=== PATIENT | male | born 1960 | race Caucasian/White ===

== ENCOUNTER 2022-06-24 14:03 | Emergency (ER) | payer BC, SELFPAY ==
[2022-06-24] VITALS (7 sets, daily range): BP systolic 93–126; BP diastolic 62–83; PULSE 73–84; RESP 13–14; TEMP 36.8; O2SAT 92–97; BMI 21.0
[2022-06-24] MEDS: ONDANSETRON 2 MG/ML inj 4 MG IVP ×2 (15:09→21:45)
[2022-06-24] MEDS: 0.9 % SODIUM CHLORIDE 1000 ml 1,000 ML IV (15:09)
[2022-06-24 15:11] LABS: Lactate* 3.1 mmol/L (0.5-1.9)
[2022-06-24 15:17] LABS: Basophils Absolute Auto 0.02 K/uL (0.00-0.30); Basophils Percent Auto 0.2 % (0.0-3.0); Eosinophils Absolute Auto 0.01 K/uL (0.00-0.50); Eosinophils Percent Auto 0.1 % (0.0-7.0); Hematocrit 42.9 % (37.0-53.0); Immature Granulocytes Abs Auto 0.06 K/uL (0.00-0.30); Lymphocytes Percent Auto 9.1 % (20-44); Mean Corpuscular HGB Conc 35 gm/dL (32-36); Mean Corpuscular Hemoglobin 36 pg (26-34); Mean Corpuscular Volume 102 fL (80-100); Monocytes Percent Auto 9.8 % (0.0-11.0); Neutrophils Percent Auto 80.1 % (42.0-72.0); Platelet Count* 137 K/uL (140-440); RDW Coefficient of Variation % 14.6 % (11.5-15.5); Red Blood Count 4.19 m/uL (4.30-5.90); White Blood Count* 8.47 K/uL (4.50-11.00)
[2022-06-24 15:18] LABS: Slide Review Reflex No
[2022-06-24 15:28] LABS: Chloride* 101 mmol/L (96-114)
[2022-06-24 15:29] LABS: Albumin* 3.2 g/dL (3.3-5.0); Sodium* 134 mmol/L (135-149)
[2022-06-24 15:30] LABS: Potassium* 4.4 mmol/L (3.6-5.1)
[2022-06-24 15:31] LABS: Creatinine* 0.4 mg/dL (0.5-1.5); Est. Creatinine Clearance* 68.68; Estimated Glomerular Filt Rate 124 ml/min
[2022-06-24 15:32] LABS: Alanine Aminotransferase* 37 U/L (4-50); Alkaline Phosphatase* 163 U/L (40-150); Aspartate Amino Transferase* 71 U/L (12-35); Bilirubin Direct* 4.2 mg/dL (0.0-0.5); Bilirubin Total* 7.8 mg/dL (0.1-1.5); Blood Urea Nitrogen* 25 mg/dL (7-30); Carbon Dioxide* 25 mmol/L (20-32); Glucose* 311 mg/dL (60-115); Lipase* 549 U/L (23-300); Total Protein* 7.9 g/dL (6.0-8.3)
[2022-06-24 15:33] LABS: Acetaminophen* < 10.0 ug/mL (10.0-30.0); Calcium* 8.9 mg/dL (8.4-10.6); Ethanol* < 0.01 % (0.01-0.03); Salicylate* < 1.0 mg/dL (1.0-10)
[2022-06-24 15:35] LABS: C Reactive Protein* 1.8 mg/dL (0.5-1.0)
--- NOTE | 2022-06-24 15:38 | CRLHL7_ITS ---
For Patients: As a result of the Century Cures Act, medical imaging exams and procedure reports are released immediately into your electronic medical record. You may view this report before your referring provider. If you have questions, please contact your health care provider. INDICATION: Abdominal pain. TECHNIQUE: CT abdomen and pelvis without intravenous contrast. Coronal and sagittal formats. COMPARISON: None available. FINDINGS: The imaged lower chest demonstrates heavy coronary artery calcifications. Cirrhotic liver morphology. Cholelithiasis. No biliary dilatation identified. The pancreas and adrenals are unremarkable. The spleen is normal in size with multiple enlarged, tortuous perisplenic vascular structures, likely a splenorenal shunt. Symmetric renal size. No urolithiasis or hydronephrosis bilaterally. Unremarkable urinary bladder. Colonic diverticulosis without acute inflammatory changes. Postsurgical changes of partial small bowel resection with enteric anastomosis in the right lower abdomen. Moderate volume ascites. No pneumoperitoneum or organized collection. Normal caliber abdominal aorta with heavy atherosclerotic calcification. No suspicious osseous lesion. IMPRESSION: 1. Cirrhosis with sequela of portal hypertension, including large splenorenal shunt. 2. Moderate volume ascites. 3. Advanced atherosclerotic disease. Dictated by Sanya Kerns MD @ 06/24/2022 4:34:26 PM Please note that all CT scans at this facility use dose modulation, iterative reconstruction, and/or weight-based dosing when appropriate to reduce radiation dose to as low as reasonably achievable. Dictated by: Sanya Kerns MD @ 06/24/2022 16:34:31 (Electronically Signed)
[2022-06-24 15:47] LABS: Troponin I* < 0.01 ng/mL (0.01-0.04)
[2022-06-24 15:59] LABS: Erythrocyte SedimentationRate* 24 mm/hr (2-15)
[2022-06-24 16:04] LABS: PCR FLU A Negative PCR FLU A (Negative); PCR FLU B Negative PCR FLU B (Negative)
--- NOTE | 2022-06-24 16:36 | ED.GENADULT ---
HPI - General Adult General Chief complaint: Nausea/Vomiting Stated complaint: Abdominal Pain/Vomiting Time Seen by Provider: 06/24/22 14:09 Source: patient and family Mode of arrival: ambulatory Limitations: no limitations History of Present Illness HPI narrative: 61-year-old male coming in today complaining of vomiting for the last 48 hours. He has not been able to take any of his medications. He was having significant diffuse abdominal pain for the last 2 days but the pain has now resolved however the nausea and vomiting continue. He denies any hemoptysis or hematemesis. Patient has a very complex medical history significant for diabetes type 2, hypertension, chronic kidney disease, liver cirrhosis with portal venous hypertension and a splenorenal shunt, gastric and esophageal varices partial colectomy, right knee arthroplasty, alcohol use disorder. Denies fevers or chills. No chest pain or shortness of breath. Has a history of jaundice, he cannot tell me nor can his , if he is more jaundiced than normal. No headache, neurologic deficits or blurry vision. Related Data Home Medications Medication Instructions Recorded Confirmed atorvastatin 10 mg tablet mg 06/24/22 ferrous sulfate 324 mg (65 mg mg PO 06/24/22 iron) tablet,delayed release folic acid 1 mg tablet 06/24/22 furosemide 20 mg tablet mg 06/24/22 glipizide 2.5 mg tablet, extended mg PO BID 06/24/22 release 24 hr glipizide 5 mg tablet 7.5 mg PO BID 06/24/22 06/24/22 lactulose 10 gram/15 mL oral 0.75 ml PO DAILY 06/24/22 06/24/22 solution magnesium 500 mg tablet 15 mg PO DAILY 06/24/22 06/24/22 nadolol 20 mg tablet mg 06/24/22 omeprazole 40 mg capsule,delayed mg 06/24/22 release ropinirole 0.25 mg tablet 1 mg PO DAILY 06/24/22 06/24/22 spironolactone 25 mg tablet mg 06/24/22 Allergies Allergy/AdvReac Type Severity Reaction Status Date / Time duloxetine Allergy Intermediate Unknown Verified 06/22/22 12:25 [facility] Medical History (Updated 06/24/22 @ 20:39 by Yuly Davies MD) Alcoholic cirrhosis of liver with ascites Anemia Gout Osteoarthritis of knee Restless legs syndrome Surgical History (Updated 06/22/22 @ 12:22 by Donita Villaseñor) History of partial surgical removal of colon (2002) History of tonsillectomy (1965) History of total knee replacement (2015) Family History (Updated 06/22/22 @ 12:25 by Donita Villaseñor) Father Diabetes Myocardial infarction, Onset Age: 81 Social History (Updated 06/22/22 @ 12:24 by Donita Villaseñor) Narrative: Does not have regular exercise regimen , computer cat, 2 kids Non-smoker- ex smoker quit 2005, hx 30 pack years Social drinker- 10/week Smoking Status: Former smoker Do you use any of these nicotine containing products: None Second hand tobacco smoke exposure: No How often do you have a drink containing alcohol: monthly or less AUDIT-C Alcohol total score: 1 Non-prescribed substance use: denies use Exam Narrative: Exam Narrative: Well-nourished well-developed patient in no acute distress. He is groggy, but cooperative. Moves very slowly. Answers questions appropriately. Speech is slightly slurred. HEENT: Normocephalic atraumatic. Pupils are equally round reactive to light. Extraocular muscles are intact. Conjunctivae are moist, he does have icterus. Moist mucous membranes. Cardiovascular: Heart is regular rate and rhythm S1 and S2 are present without loud 4/6 systolic murmur. Lungs: Clear to auscultation bilaterally no wheezes rhonchi or rales are appreciated. Patient takes deep breaths without any discomfort. Abdomen: Soft and nontender, is distended with normal bowel sounds. No guarding or rebound tenderness. Extremities: Bilateral lower extremities are without edema. Skin: Well perfused without any obvious rashes. Patient is jaundiced Const: Vital Signs, click to edit/add: Vital Signs - 24 hr 06/24/22 14:19 06/24/22 15:00 06/24/22 16:30 Temperature 98.2 F Pulse Rate [Pulse Oximeter] 79 73 74 Respiratory Rate 14 13 14 Blood Pressure [Ri ght Upper Arm] 126/75 93/73 100/62 Pulse Oximetry 95 93 92 Oxygen Delivery Me thod Room Air Room Air Room Air Course Course Hospital Course: IV was established and and fluids started along with Zofran. Labs were done which included a CBC that was unremarkable. He does have thrombocytopenia with a platelet count of 137. INR is elevated at 1.32. Slight hyponatremia 134, normal potassium. Normal renal function. Glucose elevated at 311. Lactate elevated at 3.1. Total bilirubin elevated at 7.8, direct bilirubin elevated at 4.2. AST elevated at 71, normal ALT. Alkaline phosphatase slightly elevated at 163. Ammonia level markedly elevated at 213. Normal troponin. CRP slightly up at 1.8. Lipase elevated at 549. Salicylate, acetaminophen, alcohol negative. Patient unable to give urine sample at this time, 2 L of saline was started. Abdominal CT was done showing cirrhosis and moderate abdominal ascites. All showing cholelithiasis. Therefore patient proceeded to ultrasound. Ultrasound showed cirrhosis and a portal vein thrombus. Given that the patient did not have any vomiting while he was here we did go ahead and give him an oral dose of lactulose. He did have a bowel movement. He remained hemodynamically stable. I did speak to [facility] who recommended the patient be transferred for admission and further management. Vital Signs Vital signs: Initial Vital Signs Temperature 98.2 F 06/24/22 14:19 Temperature Source Temporal Artery Scan 06/24/22 14:19 Pulse Rate 79 06/24/22 14:19 Pulse Rhythm 06/24/22 14:19 Respiratory Rate 14 06/24/22 14:19 Blood Pressure 126/75 06/24/22 14:19 Blood Pressure Mean 92 06/24/22 14:19 Pulse Oximetry 95 06/24/22 14:19 Oxygen Delivery Method 06/24/22 14:19 Vital Signs Temperature 98.2 F 06/24/22 14:19 Pulse Rate 79 06/24/22 14:19 Respiratory Rate 14 06/24/22 14:19 Blood Pressure 126/75 06/24/22 14:19 Pulse Oximetry 95 06/24/22 14:19 Oxygen Delivery Method 06/24/22 14:19 Temperature 98.2 F 06/24/22 14:19 Pulse Rate 74 06/24/22 16:30 Respiratory Rate 14 06/24/22 16:30 Blood Pressure 100/62 06/24/22 16:30 Pulse Oximetry 92 06/24/22 16:30 Oxygen Delivery Method 06/24/22 16:30 Medical Decision Making MDM Narrative Medical decision making narrative: 61-year-old male with cirrhosis, portal vein thrombus, history of esophageal varices and GI bleed, a P[place]ock encephalopathy. Patient will be transferred to [place] for further management. Medical Records Medical records reviewed: Yes I reviewed the patient's medical records Lab Data Lab results reviewed: Yes I reviewed the patient's lab results Labs: Lab Results 06/24/22 06/24/22 06/24/22 Range/Units 15:00 15:00 15:00 WBC 8.47 (4.50-11.00) K/uL RBC 4.19 L (4.30-5.90) m/uL Hgb 15.0 (13.5-17.5) gm/dL Hct 42.9 (37.0-53.0) % MCV 102 H (80-100) fL MCH 36 H (26-34) pg MCHC 35 (32-36) gm/dL RDW Coeff of Ness 14.6 (11.5-15.5) % Plt Count 137 L (140-440) K/uL Neut % (Auto) 80.1 H (42.0-72.0) % Lymph % (Auto) 9.1 L (20-44) % Bowie % (Auto) 9.8 (0.0-11.0) % Eos % (Auto) 0.1 (0.0-7.0) % Baso % (Auto) 0.2 (0.0-3.0) % Neut # (Auto) 6.80 (1.7-7.0) K/uL Lymph # (Auto) 0.80 L (0.90-2.90) K/uL Bowie # (Auto) 0.80 (0.00-0.90) K/UL Eos # (Auto) 0.01 (0.00-0.50) K/uL Baso # (Auto) 0.02 (0.00-0.30) K/uL Abs Immat Gran (auto) 0.06 (0.00-0.30) K/uL ESR 24 H (2-15) mm/hr INR (0.91-1.10) Sodium 134 L (135-149) mmol/L Potassium 4.4 (3.6-5.1) mmol/L Chloride 101 (96-114) mmol/L Carbon Dioxide 25 (20-32) mmol/L BUN 25 (7-30) mg/dL Creatinine 0.4 L (0.5-1.5) mg/dL Estimated Creat Clear 68.68 Estimated GFR 124 ml/min Glucose 311 H (60-115) mg/dL Lactate (0.5-1.9) mmol/L Calcium 8.9 (8.4-10.6) mg/dL Magnesium (1.5-2.6) mg/dL Total Bilirubin 7.8 H (0.1-1.5) mg/dL Direct Bilirubin 4.2 H (0.0-0.5) mg/dL AST 71 H (12-35) U/L ALT 37 (4-50) U/L Alkaline Phosphatase 163 H (40-150) U/L Ammonia (13.1-30.0) umol/L Troponin I < 0.01 L (0.01-0.04) ng/mL C-Reactive Protein 1.8 H (0.5-1.0) mg/dL Total Protein 7.9 (6.0-8.3) g/dL Albumin 3.2 L (3.3-5.0) g/dL Lipase 549 H (23-300) U/L Salicylates < 1.0 L (1.0-10) mg/dL Acetaminophen < 10.0 L (10.0-30.0) ug/mL Ethyl Alcohol < 0.01 L (0.01-0.03) % SARS-CoV-2 (PCR) (Negative) Influenza Type A (PCR) (Negative) Influenza Type B (PCR) (Negative) 06/24/22 06/24/22 06/24/22 Range/Units 15:00 15:00 15:00 WBC (4.50-11.00) K/uL RBC (4.30-5.90) m/uL Hgb (13.5-17.5) gm/dL Hct (37.0-53.0) % MCV (80-100) fL MCH (26-34) pg MCHC (32-36) gm/dL RDW Coeff of Ness (11.5-15.5) % Plt Count (140-440) K/uL Neut % (Auto) (42.0-72.0) % Lymph % (Auto) (20-44) % Bowie % (Auto) (0.0-11.0) % Eos % (Auto) (0.0-7.0) % Baso % (Auto) (0.0-3.0) % Neut # (Auto) (1.7-7.0) K/uL Lymph # (Auto) (0.90-2.90) K/uL Bowie # (Auto) (0.00-0.90) K/UL Eos # (Auto) (0.00-0.50) K/uL Baso # (Auto) (0.00-0.30) K/uL Abs Immat Gran (auto) (0.00-0.30) K/uL ESR (2-15) mm/hr INR (0.91-1.10) Sodium (135-149) mmol/L Potassium (3.6-5.1) mmol/L Chloride (96-114) mmol/L Carbon Dioxide (20-32) mmol/L BUN (7-30) mg/dL Creatinine (0.5-1.5) mg/dL Estimated Creat Clear Estimated GFR ml/min Glucose (60-115) mg/dL Lactate 3.1 H (0.5-1.9) mmol/L Calcium (8.4-10.6) mg/dL Magnesium (1.5-2.6) mg/dL Total Bilirubin (0.1-1.5) mg/dL Direct Bilirubin (0.0-0.5) mg/dL AST (12-35) U/L ALT (4-50) U/L Alkaline Phosphatase (40-150) U/L Ammonia 213.0 H (13.1-30.0) umol/L Troponin I (0.01-0.04) ng/mL C-Reactive Protein (0.5-1.0) mg/dL Total Protein (6.0-8.3) g/dL Albumin (3.3-5.0) g/dL Lipase (23-300) U/L Salicylates (1.0-10) mg/dL Acetaminophen (10.0-30.0) ug/mL Ethyl Alcohol (0.01-0.03) % SARS-CoV-2 (PCR) Negative SARS-CoV-2 (Negative) Influenza Type A (PCR) Negative PCR FLU A (Negative) Influenza Type B (PCR) Negative PCR FLU B (Negative) 06/24/22 06/24/22 Range/Units 15:00 17:32 WBC (4.50-11.00) K/uL RBC (4.30-5.90) m/uL Hgb (13.5-17.5) gm/dL Hct (37.0-53.0) % MCV (80-100) fL MCH (26-34) pg MCHC (32-36) gm/dL RDW Coeff of Ness (11.5-15.5) % Plt Count (140-440) K/uL Neut % (Auto) (42.0-72.0) % Lymph % (Auto) (20-44) % Bowie % (Auto) (0.0-11.0) % Eos % (Auto) (0.0-7.0) % Baso % (Auto) (0.0-3.0) % Neut # (Auto) (1.7-7.0) K/uL Lymph # (Auto) (0.90-2.90) K/uL Bowie # (Auto) (0.00-0.90) K/UL Eos # (Auto) (0.00-0.50) K/uL Baso # (Auto) (0.00-0.30) K/uL Abs Immat Gran (auto) (0.00-0.30) K/uL ESR (2-15) mm/hr INR 1.32 H (0.91-1.10) Sodium (135-149) mmol/L Potassium (3.6-5.1) mmol/L Chloride (96-114) mmol/L Carbon Dioxide (20-32) mmol/L BUN (7-30) mg/dL Creatinine (0.5-1.5) mg/dL Estimated Creat Clear Estimated GFR ml/min Glucose (60-115) mg/dL Lactate (0.5-1.9) mmol/L Calcium (8.4-10.6) mg/dL Magnesium 2.0 (1.5-2.6) mg/dL Total Bilirubin (0.1-1.5) mg/dL Direct Bilirubin (0.0-0.5) mg/dL AST (12-35) U/L ALT (4-50) U/L Alkaline Phosphatase (40-150) U/L Ammonia (13.1-30.0) umol/L Troponin I (0.01-0.04) ng/mL C-Reactive Protein (0.5-1.0) mg/dL Total Protein (6.0-8.3) g/dL Albumin (3.3-5.0) g/dL Lipase (23-300) U/L Salicylates (1.0-10) mg/dL Acetaminophen (10.0-30.0) ug/mL Ethyl Alcohol (0.01-0.03) % SARS-CoV-2 (PCR) (Negative) Influenza Type A (PCR) (Negative) Influenza Type B (PCR) (Negative) Imaging Data CT scan - abdomen: Attestation: I have reviewed the pertinent imaging results. Radiologist's impression: FINDINGS: The imaged lower chest demonstrates heavy coronary artery calcifications. Cirrhotic liver morphology. Cholelithiasis. No biliary dilatation identified. The pancreas and adrenals are unremarkable. The spleen is normal in size with multiple enlarged, tortuous perisplenic vascular structures, likely a splenorenal shunt. Symmetric renal size. No urolithiasis or hydronephrosis bilaterally. Unremarkable urinary bladder. Colonic diverticulosis without acute inflammatory changes. Postsurgical changes of partial small bowel resection with enteric anastomosis in the right lower abdomen. Moderate volume ascites. No pneumoperitoneum or organized collection. Normal caliber abdominal aorta with heavy atherosclerotic calcification. No suspicious osseous lesion. IMPRESSION: 1. Cirrhosis with sequela of portal hypertension, including large splenorenal shunt. 2. Moderate volume ascites. 3. Advanced atherosclerotic disease. US - abdomen: Attestation: I have reviewed the pertinent imaging results. Radiologist's impression: FINDINGS: The partially visualized pancreas appears unremarkable. The proximal aorta measures 2.3 cm. Cirrhotic liver morphology. No definite focal liver lesion. No blood flow is observed in the main portal vein. The gallbladder is contracted. Cholelithiasis. The common bile duct measures 0.4 cm. The right kidney measures 12.0 cm. No hydronephrosis. No focal renal lesion. Moderate to large volume ascites. Impression : 1. Cirrhotic liver morphology with moderate to large ascites. 2. Absence of blood flow in the main portal vein concerning for thrombus. ECG Data Attestation: I personally reviewed and interpreted this ECG as follows: (Normal sinus rhythm with a right bundle branch block, pulse 77) Discharge Plan Discharge Clinical Impression: Portal vein thrombosis, Cirrhosis, Encephalopathy, hepatic [facility] Condition: Stable Prescriptions: No Action atorvastatin 10 mg tablet folic acid 1 mg tablet furosemide 20 mg tablet Rx Instructions: taking 10 mg ferrous sulfate 324 mg (65 mg iron) tablet,delayed release (DR/EC) PO glipizide 2.5 mg tablet extended release 24hr PO BID glipizide 5 mg tablet 7.5 mg PO BID omeprazole 40 mg capsule,delayed release(DR/EC) nadolol 20 mg tablet ropinirole 0.25 mg tablet 1 mg PO DAILY spironolactone 25 mg tablet lactulose 10 gram/15 mL solution 0.75 ml PO DAILY magnesium 500 mg tablet 15 mg PO DAILY Stand Alone Forms: [place] [employer] Info Instructions
[2022-06-24 17:57] LABS: INR 1.32 (0.91-1.10); Prothrombin Time 16.9 Seconds
[2022-06-24] MEDS: 0.9 % SODIUM CHLORIDE 1000 ml 1,000 ML 500 ML IV (18:14)
[2022-06-24] MEDS: LACTULOSE 20 GM/30 ML PO (18:27)
[2022-06-24 19:32] LABS: SARS PCR* Negative SARS-CoV-2 (Negative)
== END 2022-06-24 22:27 | disposition short-term general hospital (02) ==
PROVIDERS: Emergency Provider Family Medicine
DX: I81 Portal vein thrombosis (principal); K74.60 Unspecified cirrhosis of liver
CPT/HCPCS: 36415; 74176; 76705; 80048; 80076; 80143; 80179; 80306; 81001; 82077; 82140; 83605; 83690; 83735; 84484; 85025; 85610; 85651; 86140; 87086; 87502; 87635; 93005; 96374; 99285; J2405; J7030

== ENCOUNTER 2022-06-24 21:52 | Outpatient (CLI) | payer BC, SELFPAY | END 2022-06-24 21:53 | disposition home or self-care (01) | LOC: AMB 07-09 13:13 | PROVIDERS: Visit Provider Family Medicine | DX: K74.60 Unspecified cirrhosis of liver (principal); R18.8 Other ascites | CPT/HCPCS: A0425; A0428 ==

== ENCOUNTER 2022-08-15 13:00 | Outpatient (RCR) | payer BC, SELFPAY | END 2022-11-28 11:41 | disposition home or self-care (01) | PROVIDERS: PCP Internal Medicine; Visit Provider Internal Medicine | DX: M25.561 Pain in right knee (principal); Z51.89 Encounter for other specified aftercare | CPT/HCPCS: 97110; 97112; 97162 ==

== ENCOUNTER 2023-04-22 09:19 | Emergency (ER) | payer BC, SELFPAY ==
[2023-04-22] VITALS (8 sets, daily range): BP systolic 92–111; BP diastolic 66–71; PULSE 67–84; RESP 12–18; TEMP 36.6; O2SAT 98–100
--- NOTE | 2023-04-22 09:44 | CRLHL7_ITS ---
For Patients: As a result of the Century Cures Act, medical imaging exams and procedure reports are released immediately into your electronic medical record. You may view this report before your referring provider. If you have questions, please contact your health care provider. INDICATION: Altered mental status TECHNIQUE: CT head without contrast. COMPARISON: None FINDINGS: No acute intracranial hemorrhage, mass effect or midline shift is identified. The ventricular system is midline and symmetric. No significant atrophy or chronic small vessel ischemic disease changes are present. No skull fracture is seen. The paranasal sinuses and mastoid air cells are normally aerated. No orbital abnormality is seen. IMPRESSION: Unremarkable noncontrast head CT. Please note that all CT scans at this facility use dose modulation, iterative reconstruction, and/or weight-based dosing when appropriate to reduce radiation dose to as low as reasonably achievable. Dictated by Sebastien Hui MD @ 04/22/2023 10:41:55 AM (Electronically Signed)
[2023-04-22 10:10] LABS: Chloride* 104 mmol/L (96-114)
[2023-04-22 10:11] LABS: Potassium* 4.8 mmol/L (3.6-5.1); Sodium* 134 mmol/L (135-149)
[2023-04-22 10:13] LABS: Creatinine* 0.6 mg/dL (0.5-1.5); Estimated Glomerular Filt Rate 109 ml/min
[2023-04-22 10:14] LABS: Alanine Aminotransferase* 25 U/L (4-50); Alkaline Phosphatase* 206 U/L (40-150); Aspartate Amino Transferase* 69 U/L (12-35); Blood Urea Nitrogen* 15 mg/dL (7-30); Calcium* 8.8 mg/dL (8.4-10.6); Carbon Dioxide* 25 mmol/L (20-32); Glucose* 157 mg/dL (60-115); Total Protein* 8.3 g/dL (6.0-8.3)
[2023-04-22 10:15] LABS: Troponin, Point-of-Care* 0.11 ng/ml (0.01-0.04)
[2023-04-22 10:17] LABS: C Reactive Protein* 1.9 mg/dL (0.5-1.0)
[2023-04-22 10:38] LABS: Basophils Percent Auto 0.7 % (0.0-3.0); Eosinophils Percent Auto 2.1 % (0.0-7.0); Hematocrit 37.5 % (37.0-53.0); Hemoglobin* 12.8 gm/dL (13.5-17.5); Immature Granulocytes Pct Auto 0.2 %; Lymphocytes Percent Auto 18.5 % (20-44); Mean Corpuscular HGB Conc 34 gm/dL (32-36); Mean Corpuscular Hemoglobin 33 pg (26-34); Mean Corpuscular Volume 96 fL (80-100); Neutrophils Percent Auto 65.5 % (42.0-72.0); Platelet Count* 103 K/uL (140-440); RDW Coefficient of Variation % 15.7 % (11.5-15.5); Red Blood Count 3.92 m/uL (4.30-5.90); White Blood Count* 4.22 K/uL (4.50-11.00)
[2023-04-22 10:45] LABS: Slide Review Reflex No
[2023-04-22 10:51] LABS: Troponin I* 0.02 ng/mL (0.01-0.04)
--- NOTE | 2023-04-22 11:41 | ED_ITS ---
HPI - General Adult General Time Seen by Provider: 11:41 Date Seen: 04/22/23 Chief complaint: Altered Mental Status Stated complaint: Altered Mental State Time Seen by Provider: 04/22/23 09:44 Source: patient, family, RN notes reviewed and old records reviewed Mode of arrival: EMS Limitations: altered mental status History of Present Illness HPI narrative: Killian is a 62-year-old male with history of liver failure, GI hemorrhage, type 2 diabetes who is brought to the emergency room by EMS for evaluation regarding altered mentation. EMS notes that patient had not been taking his lactulose. reports that she found him this morning unresponsive on the couch. She notes that he had taken off his underwear and had urinated on the floor. She notes similar confusion altered mentation in the past when he has not been able to take his lactulose but she has never seen him quite this unresponsive. As far she knows there has been no recent fever or fall. She does note that on April 19 he did have some vomiting but no diarrhea. She states that he really has not had very good bowel movements lately. She thinks that this is ?the toxins getting into his brain?. She did attempt to get a dose of lactulose in today but was unsuccessful. Kevin's after arrival tells me that Killian was evaluated for potential place on the liver transplant list in early March. She states the underwent 24 appointments and were told that at this point he would not survive the surgery. Thus they stated that they would re-evaluate in 6 months time. Patient has been trying to take extra put 18 and trying to gain weight. Upon further discussion Killian's states that he has been gradually more confused over the last few days and she states that she does not think he was talking to her last night. I do ask Killian to open his eyes and he does. I do ask him if he is in pain any smiles. He has been verbal with the nurses stating yes or no. Nurses report they are seeing him move all of his extremities. Looking back at past notes,Patient has a very complex medical history significant for diabetes type 2, hypertension, chronic kidney disease, liver c irrhosis with portal venous hypertension and a splenorenal shunt, gastric and esophageal varices partial colectomy, right knee arthroplasty, alcohol use disorder. Related Data Home Medications Medication Instructions Recorded Confirmed atorvastatin 10 mg tablet mg 06/24/22 07/12/22 ferrous sulfate 324 mg (65 mg mg PO 06/24/22 07/12/22 iron) tablet,delayed release folic acid 1 mg tablet 06/24/22 07/12/22 furosemide 20 mg tablet mg 06/24/22 07/12/22 glipizide 2.5 mg tablet, extended mg PO BID 06/24/22 07/12/22 release 24 hr glipizide 5 mg tablet 7.5 mg PO BID 06/24/22 07/12/22 lactulose 10 gram/15 mL oral 0.75 ml PO DAILY 06/24/22 07/12/22 solution magnesium 500 mg tablet 15 mg PO DAILY 06/24/22 07/12/22 nadolol 20 mg tablet mg 06/24/22 07/12/22 omeprazole 40 mg capsule,delayed mg 06/24/22 07/12/22 release ropinirole 0.25 mg tablet 1 mg PO DAILY 06/24/22 07/12/22 spironolactone 25 mg tablet mg 06/24/22 07/12/22 Allergies Allergy/AdvReac Type Severity Reaction Status Date / Time duloxetine Allergy Intermediate Unknown Verified 07/12/22 10:24 Review of Systems Status of ROS: Reports: unobtainable due to mental status Narrative: reports no recent fever. Vomiting on April 19. No diarrhea. Otherwise no recent complaints of chest pain, shortness of breath or cough. Const: Reports: fatigue; Denies: fever or chills Endo: Reports: fatigue [facility] Medical History Anemia ?D64.9 - Anemia, unspecified (ICD-10) Alcoholic cirrhosis of liver with ascites ?K70.31 - Alcoholic cirrhosis of liver with ascites (ICD-10) Restless legs syndrome ?G25.81 - Restless legs syndrome (ICD-10) Osteoarthritis of knee ?M17.10 - Unilateral primary osteoarthritis, unspecified knee (ICD-10) Gout ?M10.9 - Gout, unspecified (ICD-10) Surgical History History of total knee replacement (2015) ?Z96.659 - Presence of unspecified artificial knee joint (ICD-10) History of tonsillectomy (1965) ?Z90.89 - Acquired absence of other organs (ICD-10) History of partial surgical removal of colon (2002) ?Z90.49 - Acquired absence of other specified parts of digestive tract (ICD- 10) Family History Father Diabetes Myocardial infarction, Onset Age: 81 Social History Narrative: Does not have regular exercise regimen , computer cat, 2 kids Non-smoker- ex smoker quit 2005, hx 30 pack years Social drinker- 10/week Smoking Status: Unknown if ever smoked Do you use any of these nicotine containing products: None Second hand tobacco smoke exposure: No How often do you have a drink containing alcohol: monthly or less AUDIT-C Alcohol total score: 1 Non-prescribed substance use: denies use Exam Narrative: Exam Narrative: Killian is lying comfortably with protected airway in room 2. Will open his eyes when I ask him to. He does not follow my commands when I ask him to move his hands or feet. However he spontaneously lift up both arms to scratches nose and he has been seen moving his legs. Pupils are approximately 3 mm and are reactive. He is very sleepy. Head is atraumatic normocephalic. Oral cavity with moist mucous membranes. Neck is supple no lymphadenopathy. No signs of trauma. Heart with regular rate and rhythm and lungs are clear bilaterally. Abdomen soft nontender. Lower extremities without edema. He is jaundiced in ap pearance. Const: Vital Signs, click to edit/add: Vital Signs - 24 hr 04/22/23 09:29 04/22/23 09:29 04/22/23 09:32 Temperature 97.8 F Pulse Rate 68 69 Pulse Rate [Pulse Oximeter] 69 Respiratory Rate 16 16 Blood Pressure 111/69 108/71 Blood Pressure [Ri ght Upper Arm] 111/69 Pulse Oximetry 99 98 98 Oxygen Delivery Me thod Room Air Room Air 04/22/23 10:42 04/22/23 11:05 04/22/23 11:31 Temperature Pulse Rate 67 71 84 Pulse Rate [Pulse Oximeter] Respiratory Rate 12 Blood Pressure 109/68 92/66 94/68 Blood Pressure [Ri ght Upper Arm] Pulse Oximetry 100 98 99 Oxygen Delivery Me thod 04/22/23 12:01 04/22/23 12:39 04/22/23 13:01 Temperature Pulse Rate 74 71 70 Pulse Rate [Pulse Oximeter] Respiratory Rate 14 18 Blood Pressure 107/69 95/67 100/66 Blood Pressure [Ri ght Upper Arm] Pulse Oximetry 99 99 98 Oxygen Delivery Me thod Documenting provider has reviewed patient's vital signs: yes Course Course Hospital Course: Patient at this time likely presenting with hepatic encephalopathy as he has been unable to take his lactulose for the past 3 days due to some nausea. Will place IV give normal saline and labs will be checked. Given the fact that this is the worse case his has seen according to her will do a head CT to ensure no other underlying issue at this time. Spontaneously moving all extremities but not to command. Will also check EKG, chest chest x-ray, laboratory values. Reevaluation(s) Reevaluation #1: Patient noted to remain sleeping. Will awake occasional purposeful movements. NG is placed after failed attempts at oral lactulose. 30 g Laine is given. Will also give 1 L of normal saline. Ammonia level elevated at 80. Backup lab troponin was within normal limits at 0.02 Vital Signs Vital signs: Initial Vital Signs Temperature 97.8 F 04/22/23 09:29 Temperature Source Temporal Artery Scan 04/22/23 09:29 Pulse Rate 68 04/22/23 09:29 Pulse Rhythm Regular 04/22/23 09:29 Respiratory Rate 16 04/22/23 09:29 Blood Pressure 111/69 04/22/23 09:29 Blood Pressure Mean 83 04/22/23 09:29 Blood Pressure Position Supine 04/22/23 09:29 Pulse Oximetry 99 04/22/23 09:29 Oxygen Delivery Method Room Air 04/22/23 09:29 Vital Signs Temperature 97.8 F 04/22/23 09:29 Pulse Rate 68 04/22/23 09:29 Respiratory Rate 16 04/22/23 09:29 Blood Pressure 111/69 04/22/23 09:29 Pulse Oximetry 99 04/22/23 09:29 Oxygen Delivery Method Room Air 04/22/23 09:29 Temperature 97.8 F 04/22/23 09:29 Pulse Rate 70 04/22/23 13:01 Respiratory Rate 18 04/22/23 13:01 Blood Pressure 100/66 06/04/23 13:01 Pulse Oximetry 98 04/22/23 13:01 Oxygen Delivery Method Room Air 04/22/23 09:32 Medical Decision Making MDM Narrative Medical decision making narrative: 1. Altered mentation-likely hepatic encephalopathy-transferring to [facility] for specialty consultation. Nurses attempted to see if patient would be able to take p.o. lactulose but given his current state unable to give.Will place NG tube and give lactulose 30 g. Bilirubin 4.0 along with CRP of 1.9. AST 69 with alk-phos of 206 a normal ALT. Ammonia level for os is a send out and is currently pending. Electrolytes reassuring at this time. Blood sugar 157. 2. Elevated troponin point of care troponin 0.11. EKG shows sinus rhythm at a rate of 70. Right bundle-branch block and largely unchanged from previous. Lab troponin I is pending and will repeat 2nd value as well. Discussion with Dr. Shetty accepting physician at [facility] he feels that patient was likely worked up cardiology wagner when he underwent potential evaluation for transplant list. Suggest lactulose or GoLYTELY. 3. Disposition-ground ambulance ALS transfer to [facility] for hospitalization. Addendum: Back up lab but troponin I was within normal limits at 0.02. Medical Records Medical records reviewed: Yes I reviewed the patient's medical records Lab Data Lab results reviewed: Yes I reviewed the patient's lab results Labs: Lab Results 04/22/23 04/22/23 04/22/23 Range/Units 09:44 09:55 10:20 WBC 4.22 L (4.50-11.00) K/uL RBC 3.92 L (4.30-5.90) m/uL Hgb 12.8 L (13.5-17.5) gm/dL Hct 37.5 (37.0-53.0) % MCV 96 (80-100) fL MCH 33 (26-34) pg MCHC 34 (32-36) gm/dL RDW Coeff of Ness 15.7 H (11.5-15.5) % Plt Count 103 L (140-440) K/uL Neut % (Auto) 65.5 (42.0-72.0) % Lymph % (Auto) 18.5 L (20-44) % [place] % (Auto) 13.0 H (0.0-11.0) % Eos % (Auto) 2.1 (0.0-7.0) % Baso % (Auto) 0.7 (0.0-3.0) % Neut # (Auto) 2.80 (1.7-7.0) K/uL Lymph # (Auto) 0.80 L (0.90-2.90) K/uL [place] # (Auto) 0.50 (0.00-0.90) K/UL Eos # (Auto) 0.10 (0.00-0.50) K/uL Baso # (Auto) 0.00 (0.00-0.30) K/uL Sodium 134 L (135-149) mmol/L Potassium 4.8 (3.6-5.1) mmol/L Chloride 104 (96-114) mmol/L Carbon Dioxide 25 (20-32) mmol/L BUN 15 (7-30) mg/dL Creatinine 0.6 (0.5-1.5) mg/dL Estimated GFR 109 ml/min Glucose 157 H (60-115) mg/dL Calcium 8.8 (8.4-10.6) mg/dL Total Bilirubin 4.0 H (0.1-1.5) mg/dL AST 69 H (12-35) U/L ALT 25 (4-50) U/L Alkaline Phosphatase 206 H (40-150) U/L Ammonia 88.0 H (13.1-30.0) umol/L Troponin I 0.02 (0.01-0.04) ng/mL C-Reactive Protein 1.9 H (0.5-1.0) mg/dL Total Protein 8.3 (6.0-8.3) g/dL Albumin 3.0 L (3.3-5.0) g/dL Ethyl Alcohol < 0.01 L (0.01-0.03) % Lab Acknowledgement POC Troponin I 0.11 H (0.01-0.04) ng/ml 04/22/23 04/22/23 Range/Units 10:26 11:46 WBC (4.50-11.00) K/uL RBC (4.30-5.90) m/uL Hgb (13.5-17.5) gm/dL Hct (37.0-53.0) % MCV (80-100) fL MCH (26-34) pg MCHC (32-36) gm/dL RDW Coeff of Ness (11.5-15.5) % Plt Count (140-440) K/uL Neut % (Auto) (42.0-72.0) % Lymph % (Auto) (20-44) % [place] % (Auto) (0.0-11.0) % Eos % (Auto) (0.0-7.0) % Baso % (Auto) (0.0-3.0) % Neut # (Auto) (1.7-7.0) K/uL Lymph # (Auto) (0.90-2.90) K/uL [place] # (Auto) (0.00-0.90) K/UL Eos # (Auto) (0.00-0.50) K/uL Baso # (Auto) (0.00-0.30) K/uL Sodium (135-149) mmol/L Potassium (3.6-5.1) mmol/L Chloride (96-114) mmol/L Carbon Dioxide (20-32) mmol/L BUN (7-30) mg/dL Creatinine (0.5-1.5) mg/dL Estimated GFR ml/min Glucose (60-115) mg/dL Calcium (8.4-10.6) mg/dL Total Bilirubin (0.1-1.5) mg/dL AST (12-35) U/L ALT (4-50) U/L Alkaline Phosphatase (40-150) U/L Ammonia (13.1-30.0) umol/L Troponin I (0.01-0.04) ng/mL C-Reactive Protein (0.5-1.0) mg/dL Total Protein (6.0-8.3) g/dL Albumin (3.3-5.0) g/dL Ethyl Alcohol (0.01-0.03) % Lab Acknowledgement Test Added Test Added POC Troponin I (0.01-0.04) ng/ml Imaging Data Chest x-ray: Attestation: I have reviewed the pertinent imaging results. My impression: by my read there is no evidence pleural effusion or infiltrate. The end of the NG tube appears to be in stomach. Radiologist's impression: carbon electrodes supervisor leads overlie the patient. NG tube, with its tip in the body of the stomach. Heart size and pulmonary vasculature are normal. There is no acute airspace disease. There is no pneumothorax. No sizable pleural effusion. Central airway is normal. No acute osseous finding. Impression: NG tube, with its tip in the body of the stomach. CT scan - head: Attestation: I have reviewed the pertinent imaging results. My impression: No acute injury or intracranial bleed noted. Radiologist's impression: o acute intracranial hemorrhage, mass effect or midline shift is identified. The ventricular system is midline and symmetric. No significant atrophy or chronic small vessel ischemic disease changes are present. No skull fracture is seen. The paranasal sinuses and mastoid air cells are normally aerated. No orbital abnormality is seen. IMPRESSION: Unremarkable noncontrast head CT. ECG Data Attestation: I personally reviewed and interpreted this ECG as follows: Prior ECG tracings: available for review Interpretation: EKG by my read shows right bundle-branch block otherwise normal sinus rhythm. No acute ST or T-wave changes based on EKG from June of 2022. Critical Care Time Critical Care Time Critical Care Time: Yes Attestation: The patient required my highest level preparedness to intervene emergently and I personally spent this critical care time directly and personally managing the patient. This critical care time included: Obtaining a history; Examining the patient; Pulse oximetry; Ordering and reviewing of studies; Arranging urgent treatment with development of a management plan; Evaluation of patients response to treatment; Frequent reassessment discussions with other providers. This critical care time was performed to assess and manage the high probability of imminent life-threatening deterioration that could result in multiorgan failure. It was exclusive of separate billable procedures and treating other patients and teaching time. Total Critical Care Time in Minutes: 60 Discharge Plan Discharge Clinical Impression: Elevated troponin, Acute hepatic encephalopathy Altered mental status Qualifiers: Altered mental status type: unspecified Qualified Code(s): R41.82 - Altered mental status, unspecified Patient Disposition: [facility] Discharge Location: [facility] Condition: Unchanged Prescriptions: No Action atorvastatin 10 mg tablet folic acid 1 mg tablet furosemide 20 mg tablet Rx Instructions: taking 10 mg ferrous sulfate 324 mg (65 mg iron) tablet,delayed release (DR/EC) PO glipizide 2.5 mg tablet extended release 24hr PO BID glipizide 5 mg tablet 7.5 mg PO BID omeprazole 40 mg capsule,delayed release(DR/EC) nadolol 20 mg tablet ropinirole 0.25 mg tablet 1 mg PO DAILY spironolactone 25 mg tablet lactulose 10 gram/15 mL solution 0.75 ml PO DAILY magnesium 500 mg tablet 15 mg PO DAILY Stand Alone Forms: [facility] Info Instructions
--- NOTE | 2023-04-22 11:54 | CRLHL7_ITS ---
For Patients: As a result of the Century Cures Act, medical imaging exams and procedure reports are released immediately into your electronic medical record. You may view this report before your referring provider. If you have questions, please contact your health care provider. INDICATION: NG tube placement HISTORY: NG tube placement. COMPARISON: None. TECHNIQUE: Chest one-view semi upright portable. Findings: cardiac monitor technician leads overlie the patient. NG tube, with its tip in the body of the stomach. Heart size and pulmonary vasculature are normal. There is no acute airspace disease. There is no pneumothorax. No sizable pleural effusion. Central airway is normal. No acute osseous finding. Impression: NG tube, with its tip in the body of the stomach. Dictated by Ty Barajas MD @ 04/22/2023 1:25:58 PM Dictated by: Ty Barajas MD @ 04/22/2023 13:26:08 (Electronically Signed)
[2023-04-22 12:01] LABS: Ethanol* < 0.01 % (0.01-0.03)
--- NOTE | 2023-04-22 12:06 | ED.NURSE ---
12Fr NG placed without difficulty, Pt tolerated well. At 55cm at the nare. Awaiting xray for placement confirmation.
--- NOTE | 2023-04-22 12:24 | ED.NURSE ---
Report given to Bhavani, Charge Nurse at [facility]. Pt will go to 10th floor, Station 10-2. Dispatch notified.
--- NOTE | 2023-04-22 12:26 | ED.NURSE ---
Per CAROLYN Etienne to use.
[2023-04-22] MEDS: LACTULOSE 20 GM/30 ML 30 GM PO (12:36)
--- NOTE | 2023-04-22 13:21 | ED.NURSE ---
Report given to EMS. Receving unit [employer] notified of EMS ETA.
== END 2023-04-22 13:22 | disposition other institution (70) ==
PROVIDERS: Emergency Provider Family Medicine
DX: R77.8 Other specified abnormalities of plasma proteins (principal); K76.82 Hepatic encephalopathy; R41.82 Altered mental status, unspecified
CPT/HCPCS: 36415; 70450; 71045; 80053; 81001; 82077; 82140; 84484; 85025; 86140; 87040; 87086; 93005; 99285; 99291

== ENCOUNTER 2023-04-22 13:11 | Outpatient (CLI) | payer BC, SELFPAY | END 2023-04-22 13:12 | disposition home or self-care (01) | LOC: AMB 04-25 07:36 | PROVIDERS: Visit Provider Family Medicine | DX: K76.82 Hepatic encephalopathy (principal) | CPT/HCPCS: A0425; A0428 ==

== ENCOUNTER 2023-07-15 15:09 | Outpatient (CLI) | payer BC, SELFPAY | END 2023-07-15 15:10 | disposition home or self-care (01) | LOC: AMB 07-16 02:52 | PROVIDERS: PCP Registered Nurse; Visit Provider Family Medicine | DX: I95.9 Hypotension, unspecified (principal); R53.1 Weakness | CPT/HCPCS: A0425; A0427 ==

== ENCOUNTER 2023-07-15 15:50 | Emergency (ER) | payer BC, SELFPAY ==
[2023-07-15] VITALS (30 sets, daily range): BP systolic 79–114; BP diastolic 56–74; PULSE 109–121; RESP 14; TEMP 36.2; O2SAT 96–100
--- NOTE | 2023-07-15 15:57 | ED.GENADULT ---
HPI - General Adult General Time Seen by Provider: 15:57 Date Seen: 07/15/23 Chief complaint: Weakness Time Seen by Provider: 07/15/23 15:57 Source: patient, EMS, RN notes reviewed and old records reviewed Mode of arrival: EMS Limitations: no limitations History of Present Illness HPI narrative: Nasir is a 63-year-old male with underlying liver failure and hepatic encephalopathy coming in for weakness. On Sunday he had a procedure at [facility] to decrease the veinous shunting in his liver. They initially went through his right internal jugular and replacing coils to shunt areas, did end up going through the right side into the liver as well to access all the venous system for shunting. This was done to help decrease his hepatic encephalopathy as it was not improving with the lactulose and the antibiotic. He actually had a somewhat decent day yesterday was able to shower and remove the bandages which he did. They when out to eat for his birthday. He overall does not eat tons but had a pretty good day yesterday. This morning he stated he just had no energy and was sleeping most of the morning. They are going to go to a friend's this afternoon in [place] and his attempted to help him get out of bed. He felt faint. She had him lay back down his blood pressure was 89/55 and his resting pulse was 123. She contacted [facility] and they recommended he go to the ER. She was going to attempt to drive him to [place] herself. She tried to get him up out of bed and took for steps with them, he started to collapse, she lowered him to the ground, no trauma happen. She then called 911. His glucose was 418 I believe with EMS, certainly just in the low for 0s per my recollection. He had had no fevers today, his was checking his temperature is every 2 hours given that he was not feeling well. He has complained of no pain. She notes he has only had a protein bar to eat and maybe a cup unhappy of water today. He did get 1 dose of his lactulose in which is in 1 cup of water. He was having increased nausea, did take 2 ondansetron orally at home plus EMS did give him a dose of IV ondansetron. He did get 500 mL of IV fluids with normal saline started by EMS, we will complete this. He has been in a hepatic coma per his before. They state it will take about 2-4 weeks to know before clearing of his confusion to know if the procedure worked. At this time, he denies any pain anywhere. His is not noted any focal illness symptoms. He has had ascites and paracentesis before too as well. Related Data Home Medications Medication Instructions Recorded Confirmed atorvastatin 10 mg tablet mg 06/24/22 07/12/22 ferrous sulfate 324 mg (65 mg mg PO 06/24/22 07/12/22 iron) tablet,delayed release folic acid 1 mg tablet 06/24/22 07/12/22 furosemide 20 mg tablet mg 06/24/22 07/12/22 glipizide 2.5 mg tablet, extended mg PO BID 06/24/22 07/12/22 release 24 hr glipizide 5 mg tablet 7.5 mg PO BID 06/24/22 07/12/22 lactulose 10 gram/15 mL oral 0.75 ml PO DAILY 06/24/22 07/12/22 solution magnesium 500 mg tablet 15 mg PO DAILY 06/24/22 07/12/22 nadolol 20 mg tablet mg 06/24/22 07/12/22 omeprazole 40 mg capsule,delayed mg 06/24/22 07/12/22 release ropinirole 0.25 mg tablet 1 mg PO DAILY 06/24/22 07/12/22 spironolactone 25 mg tablet mg 06/24/22 07/12/22 Allergies Allergy/AdvReac Type Severity Reaction Status Date / Time duloxetine Allergy Intermediate Unknown Verified 07/12/22 10:24 Review of Systems Status of ROS: Reports: 6 or more systems reviewed and unremarkable except as noted in History and below [facility] Medical History Anemia ?D64.9 - Anemia, unspecified (ICD-10) Alcoholic cirrhosis of liver with ascites ?K70.31 - Alcoholic cirrhosis of liver with ascites (ICD-10) Restless legs syndrome ?G25.81 - Restless legs syndrome (ICD-10) Osteoarthritis of knee ?M17.10 - Unilateral primary osteoarthritis, unspecified knee (ICD-10) Gout ?M10.9 - Gout, unspecified (ICD-10) Surgical History History of total knee replacement (2016) ?Z96.659 - Presence of unspecified artificial knee joint (ICD-10) History of tonsillectomy (1965) ?Z90.89 - Acquired absence of other organs (ICD-10) History of partial surgical removal of colon (2002) ?Z90.49 - Acquired absence of other specified parts of digestive tract (ICD-10) Family History Father Diabetes Myocardial infarction, Onset Age: 81 Social History Narrative: Does not have regular exercise regimen , computer cat, 2 kids Non-smoker- ex smoker quit 2005, hx 30 pack years Social drinker- 10/week Smoking Status: Unknown if ever smoked Do you use any of these nicotine containing products: None Second hand tobacco smoke exposure: No How often do you have a drink containing alcohol: monthly or less AUDIT-C Alcohol total score: 1 Non-prescribed substance use: denies use Exam Const: Vital Signs, click to edit/add: Vital Signs - 24 hr 07/15/23 15:58 07/15/23 15:59 07/15/23 16:02 Temperature 97.1 F L Pulse Rate 113 H Pulse Rate [Right Pulse Oximeter] 112 H Respiratory Rate 14 Blood Pressure 91/69 Blood Pressure [Ri ght Upper Arm] 79/65 L Pulse Oximetry 98 96 100 Oxygen Delivery Me thod Room Air 07/15/23 16:03 07/15/23 16:17 07/15/23 16:21 Temperature Pulse Rate 114 H 115 H Pulse Rate [Right Pulse Oximeter] Respiratory Rate Blood Pressure 90/68 Blood Pressure [Ri ght Upper Arm] Pulse Oximetry 100 98 Oxygen Delivery Me thod 07/15/23 16:22 07/15/23 16:30 07/15/23 16:35 Temperature Pulse Rate 117 H 112 H 112 H Pulse Rate [Right Pulse Oximeter] Respiratory Rate Blood Pressure 96/65 Blood Pressure [Ri ght Upper Arm] Pulse Oximetry 96 99 99 Oxygen Delivery Me thod 07/15/23 16:36 07/15/23 16:40 07/15/23 16:45 Temperature Pulse Rate 111 H 111 H 109 H Pulse Rate [Right Pulse Oximeter] Respiratory Rate Blood Pressure Blood Pressure [Ri ght Upper Arm] Pulse Oximetry 98 96 98 Oxygen Delivery Me thod 07/15/23 16:50 07/15/23 16:54 07/15/23 16:55 Temperature Pulse Rate 109 H 114 H 114 H Pulse Rate [Right Pulse Oximeter] Respiratory Rate Blood Pressure 114/72 Blood Pressure [Ri ght Upper Arm] Pulse Oximetry 98 99 98 Oxygen Delivery Me thod 07/15/23 17:00 07/15/23 17:01 07/15/23 17:10 Temperature Pulse Rate 117 H 116 H 121 H Pulse Rate [Right Pulse Oximeter] Respiratory Rate Blood Pressure 109/70 Blood Pressure [Ri ght Upper Arm] Pulse Oximetry 97 99 98 Oxygen Delivery Me thod 07/15/23 17:11 07/15/23 17:16 07/15/23 17:20 Temperature Pulse Rate 119 H 119 H 118 H Pulse Rate [Right Pulse Oximeter] Respiratory Rate Blood Pressure 85/61 L 90/69 Blood Pressure [Ri ght Upper Arm] Pulse Oximetry 98 98 98 Oxygen Delivery Me thod 07/15/23 17:21 07/15/23 17:37 07/15/23 17:38 Temperature Pulse Rate 121 H 119 H 119 H Pulse Rate [Right Pulse Oximeter] Respiratory Rate Blood Pressure 90/62 98/62 Blood Pressure [Ri ght Upper Arm] Pulse Oximetry 97 98 97 Oxygen Delivery Me thod 07/15/23 17:40 07/15/23 17:42 07/15/23 17:43 Temperature Pulse Rate 118 H 119 H 117 H Pulse Rate [Right Pulse Oximeter] Respiratory Rate Blood Pressure 93/59 L Blood Pressure [Ri ght Upper Arm] Pulse Oximetry 98 99 98 Oxygen Delivery Me thod 07/15/23 17:50 07/15/23 17:52 07/15/23 17:57 Temperature Pulse Rate 118 H 116 H Pulse Rate [Right Pulse Oximeter] Respiratory Rate Blood Pressure 113/74 97/56 L Blood Pressure [Ri ght Upper Arm] Pulse Oximetry 98 99 Oxygen Delivery Me thod Cachectic and frail looking 63-year-old male brought in by EMS. He is alert, does answer questions. Is not excessively conversive. Speech is normal when he does talk. Appears to have some Resendiz Z changes to skin, mild icterus maybe, conjugate gaze. Oropharynx with normal mucosa, see no lesions, does not look excessively dry. Lungs are clear with good air entry. The neck is nontender, can see the puncture wound in his right jugular area of the overlying skin, just a pinpoint area without any palpable abnormality. CV is fast regular, no significant murmur heard. Bc bruising on the right lateral chest wall, does not seem to be tender, abdomen is soft, no rebound or guarding, do not feel any palpable masses, no organomegaly. He is frail appearing, lower extremities without any edema. Has no focal deficit on movement of his arms or legs. Documenting provider has reviewed patient's vital signs: yes Course Course Hospital Course: This is a hypotensive tachycardic patient with underlying liver failure. He is not having any pain but infectious etiology including but not limited to spontaneous bacterial peritonitis, other infectious etiologies from the procedure, worsening hepatic encephalopathy, doubt GI bleed as there is no symptoms, dehydration even as possible. He has a multitude of possibilities in many systems, will initiate another L of IV fluids for a total of 1500 between the initial EMS and our initial L here. Watch him closely, get full complement of labs. Will him on cardiac monitoring and pulse oximetry. May need to get imaging. Reevaluation(s) Time of Reevaluation #1: 17:20 Reevaluation #1: Patient was having increasing back pain, more right posterior thoracic area. Repeat blood pressure was 90/69. Did discuss with them that [facility] was on full hospital diversion. They want to go to [facility], she asked that I talk to them. This point I did take leave to talk to them, another L of normal saline was tongue, will have staff check with lab to see when we can get a unit of type specific blood ready, otherwise consider O negative emergently. Consultations Consultation #1: Spoke with brigette OSBORNE in the triage center at [facility]. She states [place] is on full hospital diversion, however, have requested to talk to someone there. This is 1 of their liver patients with a complication. My working presumption is that this patient is hypotensive from acute anemia, my guess is a probable bleed, possible retroperitoneal. He is starting to have some midback pain per nursing staff. His most recent vitals are heart rate 116, respiratory rate 20, blood pressure in 114/72 an oximetry 97%. She is going to contact the emergency medicine officer of the day. I will work on getting stat imaging with chest abdomen pelvis with IV contrast, have ordered type and screen to start transfusion. Time: 16:57 Consultation #2: Did talk to Mony the RN at [facility], she put me through to the emergency room medical doctor of the day. This physician agreed with acceptance for ED to ED transfer. I did specifically ask about tranxemic acid, he did not recommend. We do have lab working on type specific blood, will likely be ready with in 1/2 hour. We are checking on flight status, Luis Fernando can be here shortly and thus we will fly. CT of chest abdomen pelvis will be done emergently and images will be sent to [place]. His hemoglobin was 12.3 on June 25, is now 8.9, patient is developing severe right-sided thoracic and central back pain. I have to believe that he is actively internally bleeding. Time: 17:24 Consultation #3: By the time the flight crew was here, patient had gotten about 500 mL of his 2 L of normal saline from us. Did discussed pain management, ketamine is extensively liver metabolized, thus will avoid this. May have been a good option for somebody with hypotension issues. His blood pressure at this time was systolic 112. Lab is getting the types specific blood to us, we will initiate 1 unit. We are going to give fentanyl 25 mcg IV for pain. I am turning care over to the flight crew. Time: 18:17 Additional Consultation(s): Did speak with the radiologist after patient already left. He does think that there might be some active bleeding but it is intra or abdominal. He has already left, images were sent to [place] after the CT was taken. Vital Signs Vital signs: Initial Vital Signs Pulse Oximetry 98 07/15/23 15:58 Vital Signs Pulse Oximetry 98 07/15/23 15:58 Temperature 97.1 F L 07/15/23 15:59 Pulse Rate 116 H 07/15/23 17:52 Respiratory Rate 14 07/15/23 15:59 Blood Pressure 97/56 L 07/15/23 17:57 Pulse Oximetry 99 07/15/23 17:52 Oxygen Delivery Method Room Air 07/15/23 15:59 Medical Decision Making Lab Data Lab results reviewed: Yes I reviewed the patient's lab results Labs: Lab Results 07/15/23 07/15/23 07/15/23 Range/Units 15:59 16:10 16:13 WBC 7.22 (4.50-11.00) K/uL RBC 2.77 L (4.30-5.90) m/uL Hgb 8.9 L (13.5-17.5) gm/dL Hct 27.1 L (37.0-53.0) % MCV 98 (80-100) fL MCH 32 (26-34) pg MCHC 33 (32-36) gm/dL RDW Coeff of Ness 15.8 H (11.5-15.5) % Plt Count 79 L (140-440) K/uL Neut % (Auto) 70.4 (42.0-72.0) % Lymph % (Auto) 11.2 L (20-44) % Huntington % (Auto) 17.3 H (0.0-11.0) % Eos % (Auto) 0.1 (0.0-7.0) % Baso % (Auto) 0.6 (0.0-3.0) % Neut # (Auto) 5.08 (1.7-7.0) K/uL Lymph # (Auto) 0.80 L (0.90-2.90) K/uL Huntington # (Auto) 1.20 H (0.00-0.90) K/UL Eos # (Auto) 0.01 (0.00-0.50) K/uL Baso # (Auto) 0.04 (0.00-0.30) K/uL Abs Immat Gran (auto) 0.03 (0.00-0.30) K/uL Imm/Tot Granulo (auto) 0.4 % INR (0.91-1.10) APTT (23-33) Seconds Sodium 133 L (135-149) mmol/L Potassium 4.2 (3.6-5.1) mmol/L Chloride 104 (96-114) mmol/L Carbon Dioxide 19 L (20-32) mmol/L Anion Gap 10 (7-15) mEq/L BUN 24 (7-30) mg/dL Creatinine 0.9 (0.5-1.5) mg/dL Estimated GFR 96 ml/min Glucose 328 H (60-115) mg/dL Lactate (0.5-1.9) mmol/L Calcium 8.1 L (8.4-10.6) mg/dL Total Bilirubin 3.2 H (0.1-1.5) mg/dL Direct Bilirubin 1.4 H (0.0-0.5) mg/dL AST 53 H (12-35) U/L ALT 34 (4-50) U/L Alkaline Phosphatase 153 H (40-150) U/L Ammonia (13.1-30.0) umol/L C-Reactive Protein 4.6 H (0.5-1.0) mg/dL Total Protein 6.5 (6.0-8.3) g/dL Albumin 2.4 L (3.3-5.0) g/dL Amylase 69 (18-89) U/L SARS-CoV-2 (PCR) Negative SARS-CoV-2 (Negative) Influenza Type A (PCR) Negative PCR FLU A (Negative) Influenza Type B (PCR) Negative PCR FLU B (Negative) RSV (PCR) Negative PCR RSV (Negative) POC Troponin I 0.01 (0.01-0.04) ng/ml Blood Type Antibody Screen Crossmatch (AHG) 07/15/23 07/15/23 Range/Units 16:22 17:00 WBC (4.50-11.00) K/uL RBC (4.30-5.90) m/uL Hgb (13.5-17.5) gm/dL Hct (37.0-53.0) % MCV (80-100) fL MCH (26-34) pg MCHC (32-36) gm/dL RDW Coeff of Ness (11.5-15.5) % Plt Count (140-440) K/uL Neut % (Auto) (42.0-72.0) % Lymph % (Auto) (20-44) % Huntington % (Auto) (0.0-11.0) % Eos % (Auto) (0.0-7.0) % Baso % (Auto) (0.0-3.0) % Neut # (Auto) (1.7-7.0) K/uL Lymph # (Auto) (0.90-2.90) K/uL Huntington # (Auto) (0.00-0.90) K/UL Eos # (Auto) (0.00-0.50) K/uL Baso # (Auto) (0.00-0.30) K/uL Abs Immat Gran (auto) (0.00-0.30) K/uL Imm/Tot Granulo (auto) % INR 1.80 H (0.91-1.10) APTT 36 H (23-33) Seconds Sodium (135-149) mmol/L Potassium (3.6-5.1) mmol/L Chloride (96-114) mmol/L Carbon Dioxide (20-32) mmol/L Anion Gap (7-15) mEq/L BUN (7-30) mg/dL Creatinine (0.5-1.5) mg/dL Estimated GFR ml/min Glucose (60-115) mg/dL Lactate 4.3 H* (0.5-1.9) mmol/L Calcium (8.4-10.6) mg/dL Total Bilirubin (0.1-1.5) mg/dL Direct Bilirubin (0.0-0.5) mg/dL AST (12-35) U/L ALT (4-50) U/L Alkaline Phosphatase (40-150) U/L Ammonia < 9.0 L (13.1-30.0) umol/L C-Reactive Protein (0.5-1.0) mg/dL Total Protein (6.0-8.3) g/dL Albumin (3.3-5.0) g/dL Amylase (18-89) U/L SARS-CoV-2 (PCR) (Negative) Influenza Type A (PCR) (Negative) Influenza Type B (PCR) (Negative) RSV (PCR) (Negative) POC Troponin I (0.01-0.04) ng/ml Blood Type A Negative Antibody Screen NEGATIVE Crossmatch (AHG) See Detail Imaging Data CT Chest/Ab/Pelvis: Attestation: I have reviewed the pertinent imaging results. Radiologist's impression: Patient: NASIR BRYAN Facility:?[facility] Patient ID:?[id number] Site Patient ID:?[id number]. Site :?[id number] Study:?CT Chest/Abd/Pelvis W/ 54CC [id number]/27/2023 5:36:43 PM Ordering Physician:Polo Emery Final Report: INDICATION: New anemia and hypotension. Liver procedure 2 days ago. TECHNIQUE: Contrast-enhanced CT of the chest abdomen and pelvis. 54 cc nonionic Isovue-370 administered. COMPARISON: Noncontrast abdominopelvic CT June 24, 2022. FINDINGS: There is a large amount of abdominopelvic ascites. Posterior to the right hepatic lobe there is an area of increased attenuation which could represent clotted blood. Given the reported anemia (4 gram hemoglobin drop within the last 3 or 4 days) this is likely a combination of ascites and intraperitoneal hemorrhage. There is no retroperitoneal hemorrhage. Large splenorenal varices left upper quadrant. Post intervention change left mid abdomen with multiple vascular coils causing significant artifact. The spleen itself is not enlarged. Hepatic cirrhosis. Hyperdense material in the region of the gallbladder which may reflect post treatment type change. The stomach is thick-walled. Gastric varices are suspected. Dense vascular calcification within multiple territories of the coronary arteries, included thoracoabdominal aorta and iliac arteries, but no evidence for free air. No pneumatosis coli or pneumatosis intestinalis. The adrenal glands and kidneys are unremarkable. Small cysts left kidney. Postsurgical change right lower quadrant likely from bowel resection and reanastomosis. Ascites extends into the right inguinal canal. Clear included lung bases. The included skeleton is negative for fracture. These findings were called to and discussed with Dr. Yuly Barone at 6:20 p.m. on July 15, 2023. IMPRESSION: 1. Large amount of abdominopelvic ascites increased when compared June 24, 2022. There is some component of hemorrhage/clot posterior to the liver. 2. Post intervention change left mid abdomen from a coiling procedure. Varices left upper quadrant likely related to a splenorenal shunt. Normal sized spleen. 3. Probable gastric varices. Postsurgical change right lower quadrant. Please note that all CT scans at this facility use dose modulation, iterative reconstruction, and/or weight-based dosing when appropriate to reduce radiation dose to as low as reasonably achievable. Dictated by Marquise Buchanan MD @ 07/15/2023 6:28:56 PM (Electronic Signature) ECG Data Attestation: I personally reviewed and interpreted this ECG as follows: (Sinus tachycardia, 112 beats per minute. Right bundle branch block. No definitive ischemic change. QT corrected 505 milliseconds.) Prior ECG tracings: not available for review Critical Care Time Critical Care Time Critical Care Time: Yes Attestation: The patient required my highest level preparedness to intervene emergently and I personally spent this critical care time directly and personally managing the patient. This critical care time included: Obtaining a history; Examining the patient; Pulse oximetry; Ordering and reviewing of studies; Arranging urgent treatment with development of a management plan; Evaluation of patients response to treatment; Frequent reassessment discussions with other providers. This critical care time was performed to assess and manage the high probability of imminent life-threatening deterioration that could result in multiorgan failure. It was exclusive of separate billable procedures and treating other patients and teaching time. Total Critical Care Time in Minutes: 135 Discharge Plan Discharge Clinical Impression: Cirrhosis, Acute blood loss anemia Patient Disposition: [facility] Discharge Location: [facility] Condition: Critical Prescriptions: No Action atorvastatin 10 mg tablet folic acid 1 mg tablet furosemide 20 mg tablet Rx Instructions: taking 10 mg ferrous sulfate 324 mg (65 mg iron) tablet,delayed release (DR/EC) PO glipizide 2.5 mg tablet extended release 24hr PO BID glipizide 5 mg tablet 7.5 mg PO BID omeprazole 40 mg capsule,delayed release(DR/EC) nadolol 20 mg tablet ropinirole 0.25 mg tablet 1 mg PO DAILY spironolactone 25 mg tablet lactulose 10 gram/15 mL solution 0.75 ml PO DAILY magnesium 500 mg tablet 15 mg PO DAILY Follow Up/Referrals: Provider,Not a Local [Referring] - Stand Alone Forms: [employer] Info Instructions
[2023-07-15] MEDS: 0.9 % SODIUM CHLORIDE 1000 ml 1,000 ML IV ×2 (16:00→17:38)
[2023-07-15 16:24] LABS: Basophils Absolute Auto 0.04 K/uL (0.00-0.30); Basophils Percent Auto 0.6 % (0.0-3.0); Eosinophils Absolute Auto 0.01 K/uL (0.00-0.50); Eosinophils Percent Auto 0.1 % (0.0-7.0); Hematocrit 27.1 % (37.0-53.0); Hemoglobin* 8.9 gm/dL (13.5-17.5); Immature Granulocytes Abs Auto 0.03 K/uL (0.00-0.30); Immature Granulocytes Pct Auto 0.4 %; Lymphocytes Percent Auto 11.2 % (20-44); Mean Corpuscular HGB Conc 33 gm/dL (32-36); Mean Corpuscular Hemoglobin 32 pg (26-34); Mean Corpuscular Volume 98 fL (80-100); Monocytes Percent Auto 17.3 % (0.0-11.0); Neutrophils Absolute Auto 5.08 K/uL (1.7-7.0); Neutrophils Percent Auto 70.4 % (42.0-72.0); Platelet Count* 79 K/uL (140-440); RDW Coefficient of Variation % 15.8 % (11.5-15.5); Red Blood Count 2.77 m/uL (4.30-5.90); White Blood Count* 7.22 K/uL (4.50-11.00)
[2023-07-15 16:30] LABS: Lactate* 4.3 mmol/L (0.5-1.9)
[2023-07-15 16:31] LABS: Slide Review Reflex No
[2023-07-15 16:37] LABS: Albumin* 2.4 g/dL (3.3-5.0); Chloride* 104 mmol/L (96-114); Sodium* 133 mmol/L (135-149)
[2023-07-15 16:38] LABS: Potassium* 4.2 mmol/L (3.6-5.1)
[2023-07-15 16:40] LABS: Amylase* 69 U/L (18-89)
[2023-07-15 16:41] LABS: Alanine Aminotransferase* 34 U/L (4-50); Alkaline Phosphatase* 153 U/L (40-150); Anion Gap 10 mEq/L (7-15); Aspartate Amino Transferase* 53 U/L (12-35); Bilirubin Direct* 1.4 mg/dL (0.0-0.5); Bilirubin Total* 3.2 mg/dL (0.1-1.5); Blood Urea Nitrogen* 24 mg/dL (7-30); Calcium* 8.1 mg/dL (8.4-10.6); Carbon Dioxide* 19 mmol/L (20-32); Creatinine* 0.9 mg/dL (0.5-1.5); Estimated Glomerular Filt Rate 96 ml/min; Glucose* 328 mg/dL (60-115); Total Protein* 6.5 g/dL (6.0-8.3)
[2023-07-15 16:43] LABS: Troponin, Point-of-Care* 0.01 ng/ml (0.01-0.04)
[2023-07-15 16:44] LABS: C Reactive Protein* 4.6 mg/dL (0.5-1.0)
[2023-07-15 16:49] LABS: Ammonia* < 9.0 umol/L (13.1-30.0)
--- NOTE | 2023-07-15 17:01 | CRLHL7_ITS ---
For Patients: As a result of the Century Cures Act, medical imaging exams and procedure reports are released immediately into your electronic medical record. You may view this report before your referring provider. If you have questions, please contact your health care provider. INDICATION: New anemia and hypotension. Liver procedure 2 days ago. TECHNIQUE: Contrast-enhanced CT of the chest abdomen and pelvis. 54 cc nonionic Isovue-370 administered. COMPARISON: Noncontrast abdominopelvic CT June 24, 2022. FINDINGS: There is a large amount of abdominopelvic ascites. Posterior to the right hepatic lobe there is an area of increased attenuation which could represent clotted blood. Given the reported anemia (4 gram hemoglobin drop within the last 3 or 4 days) this is likely a combination of ascites and intraperitoneal hemorrhage. There is no retroperitoneal hemorrhage. Large splenorenal varices left upper quadrant. Post intervention change left mid abdomen with multiple vascular coils causing significant artifact. The spleen itself is not enlarged. Hepatic cirrhosis. Hyperdense material in the region of the gallbladder which may reflect post treatment type change. The stomach is thick-walled. Gastric varices are suspected. Dense vascular calcification within multiple territories of the coronary arteries, included thoracoabdominal aorta and iliac arteries, but no evidence for free air. No pneumatosis coli or pneumatosis intestinalis. The adrenal glands and kidneys are unremarkable. Small cysts left kidney. Postsurgical change right lower quadrant likely from bowel resection and reanastomosis. Ascites extends into the right inguinal canal. Clear included lung bases. The included skeleton is negative for fracture. These findings were called to and discussed with Dr. Yuly Santacruz--Sena at 6:20 p.m. on July 15, 2023. IMPRESSION: 1. Large amount of abdominopelvic ascites increased when compared June 24, 2022. There is some component of hemorrhage/clot posterior to the liver. 2. Post intervention change left mid abdomen from a coiling procedure. Varices left upper quadrant likely related to a splenorenal shunt. Normal sized spleen. 3. Probable gastric varices. Postsurgical change right lower quadrant. Please note that all CT scans at this facility use dose modulation, iterative reconstruction, and/or weight-based dosing when appropriate to reduce radiation dose to as low as reasonably achievable. Dictated by Marquise Buchanan MD @ 07/15/2023 6:28:56 PM (Electronically Signed)
[2023-07-15 17:24] LABS: PCR FLU A Negative PCR FLU A (Negative); PCR FLU B Negative PCR FLU B (Negative); PCR RSV Negative PCR RSV (Negative)
[2023-07-15 17:34] LABS: Partial Thromboplastin Time* 36 Seconds (23-33); Prothrombin Time 21.8 Seconds
[2023-07-15 17:53] LABS: SARS PCR* Negative SARS-CoV-2 (Negative)
[2023-07-15] MEDS: 0.9 % SODIUM CHLORIDE 250 ml IV (18:00)
[2023-07-15 18:09] LABS: Procalcitonin* 0.21 ng/mL (<0.50)
[2023-07-15] MEDS: fentaNYL 100 MCG/2 ML inj 25 MCG IVP (18:20)
--- NOTE | 2023-07-15 18:21 | ED.NURSE ---
unit of blood verified with 2 RN, given to flight crew to admin in route to [place].
== END 2023-07-15 18:20 | disposition other institution (70) ==
PROVIDERS: Emergency Provider Family Medicine; PCP Registered Nurse
DX: K74.60 Unspecified cirrhosis of liver (principal); D62 Acute posthemorrhagic anemia
CPT/HCPCS: 36415; 71260; 74177; 80053; 81001; 82140; 82150; 82248; 83605; 84145; 84484; 85025; 85610; 85730; 86140; 86850; 86900; 86901; 86922; 87040; 87631; 93005; 94761; 96361; 96374; 99285; 99291; 99292; J3010; J7030; J7050; P9016; Q9967

== ENCOUNTER 2023-08-17 15:09 | Outpatient (CLI) | payer BC, SELFPAY | END 2023-08-17 15:10 | disposition home or self-care (01) | LOC: AMB 08-20 09:46 | PROVIDERS: PCP Registered Nurse; Visit Provider Emergency Medicine Emergency Medical Services | DX: R41.82 Altered mental status, unspecified (principal) | CPT/HCPCS: A0998 ==

== ENCOUNTER 2024-09-19 10:15 | Outpatient (RCR) | payer BC, SELFPAY | END 2024-11-14 10:35 | disposition home or self-care (01) | PROVIDERS: PCP Registered Nurse; Visit Provider Nurse Practitioner | DX: R53.81 Other malaise (principal); R29.898 Other symptoms and signs involving the musculoskeletal system; M62.81 Muscle weakness (generalized); E44.1 Mild protein-calorie malnutrition; Z95.0 Presence of cardiac pacemaker; Z94.4 Liver transplant status; Z51.89 Encounter for other specified aftercare | CPT/HCPCS: 97110; 97162 ==

== ENCOUNTER 2025-02-02 22:43 | Emergency (ER) | payer BC, SELFPAY ==
--- OUTSIDE RECORDS SUMMARY | 2025-02-02 22:45 | XMS_ITS | Encounter Summary ---
Author Organization [facility] Address [address] [place] [address] Care Team Providers Care Caramel Candy Maker Helper Name Role Phone Wally Daniel MD Primary Care Provider Unavailable Wally Daniel MD Unavailable Unavai lable No Ref-Primary, Physician Primary Care Provider Tennille Goddard APRN TEA PLANTATION WORKER Unavailable [phone] Tennille Goddard APRN TEA PLANTATION WORKER Unavailable [phone] Beatris Ty [facility] Unavailable [phone] Dov Alston [facility] Unavailable Unavailable Tennille Goddard APRN TEA PLANTATION WORKER Primary Care Provider + Dov Alston RP Unavailable Unavailable Dov Alston RP Unavailable Unavailable Reason for Visit * Reason Onset Date Comments MyChart Communication 05/01/2015 Encounter Details Date Type Department Care Team (Latest Contact Info) Description 05/01/2015 MyC Medical Advice [address] [address] Wally Daniel MD Forensic Logic Communication Social History Tobacco Use Types Packs/Day Years Used Date Smoking Tobacco: Former Cigarettes 1.5 10 0 06/07/2000 - 06/07/2010 Smokeless Tobacco: Former Comments:1 pk x 15 yrs Alcohol Use Standard Drinks/Week Comments Yes 0 (1 standard drink = 0.6 oz pur e alcohol) twice a wk Sex and Gender Information Value Date Recorded Sex Assigned at Not on file 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 Gender Identity Not on file Sexual Orientation Not on file 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 documented in this encounter Plan of Treatment Not on file documented as of this encounter Visit Diagnoses Diagnosis Type 2 diabetes mellitus without complication (H)- Primary Vitamin D deficiency Unspecified vitamin D deficiency documented in this encounter Care Teams Caramel Candy Maker Helper Relationship Specialty Start Date End Date Wally Daniel MD PCP - General 12/17/03 12/08/18 Wally Daniel MD PCP - Assigned PCP 10/16/10 12/14/18 No Ref-Primary, Physician PCP - General 12/09/18 08/17/19 Tennille Goddard APRN TEA PLANTATION WORKER [address] [address] PCP - Assigned PCP 12/15/18 01/21/19 Tennille Goddard APRN TEA PLANTATION WORKER [address] [place] [address] PCP - General Nurse Practitioner - Family 08/18/19 Tennille Goddard APRN TEA PLANTATION WORKER [address] [address] Assigned PCP 12/15/18 01/07/22 Beatris Ty [facility] [address] [place] [address] Pharmacist Pharmacist 04/08/19 01/12/21 Dov Alston [facility] [address] [place] [address] Pharmacist Pharmacist 06/16/19 Dov Alston [facility] [address] [place] [address] Assigned MTM Pharmacist 04/15/22 08/04/22 Dov Alston [facility] [address] [place] [address] Assigned [place] Pharmacist 08/16/22 10/27/22 documented as of this encounter
--- OUTSIDE RECORDS SUMMARY | 2025-02-02 22:45 | XMS_ITS ---
Author Organization [facility] ([facility]) Address [address] [place] [address] Care Team Providers Care Medical Cost Consultant Name Role Phone Unavailable Unavailable Unavailable Allergies, Adverse Reactions, Alerts This patient has no known allergies or adverse reactions. Problems This patient has no known problems.
--- OUTSIDE RECORDS SUMMARY | 2025-02-02 22:45 | XMS_ITS | Encounter Summary ---
Author Organization [facility] Address [address] [place] [address] Care Team Providers Care Exercise Physiologist Certified Name Role Phone Kelly Mendez APRN C.N.P., D.N.P. Primary Car e Provider Encounter Details Date Type Department Care Team (Latest Contact Info) Description 12/08/2024 Clinical Communication Division of Endocrinology in [place], [place] [address] [place] [address] Provider, Unknown Social History Tobacco Use Types Packs/Day Years Used Date Smoking Tobacco: Former Cigarettes Q uit: 2008 Passive Smoke Exposure: Never Smokeless Tobacco: Never Alcohol Use Standard Drinks/Week Comments Not Currently 0 (1 standard drink = 0.6 oz pur e alcohol) last 06/23/[address] [facility] Utilities Answer Date Recorded In the past 12 months has [employer], oil, or water [employer] threatened to shut off services in your home? Patient declined 11/10/2024 Humiliation, Afraid, Rape, and Kick questionnair e Answer Date Recorded Within the last year, have y ou been afraid of your partner or ex-partner? Patient declined 11/10/2024 Within the last year, have y ou been humiliated or emotionally abused in other ways by your partner or ex-partner? Patient declined 11/10/2024 Within the last year, have y ou been kicked, hit, slapped, or otherwise physically hurt by your partner or ex-partner? Patient declined 11/10/2024 Within the last year, have y ou been raped or forced to have any kind of sexual activity by your partner or ex-partner? Patient declined 11/10/2024 Social Connection and Isolation Panel [NHANES] A nswer Date Recorded In a typical week, how many times do you talk on the phone with family, friends, or neighbors? Never 02/04/2023 How often do you get togethe r with friends or relatives? Once a week 02/04/2023 How often do you attend latter day or christian serv ices? Patient declined 02/04/2023 Do you belong to any clubs o r organizations such as latter day groups, unions, fraternal or athletic groups, or school groups? No 02/04/2023 How often do you attend meet ings of the clubs or organizations you belong to? Never 02/04/2023 Are you , , di vorced, , never , or living with a partner? 02/04/2023 AUDIT-C Answer Date Recorded Q1: How often do you have a drink containing alc ohol? Patient declined 02/04/2023 Average Number of Drinks Not on file 023 Frequency of Binge Drinking Not on file 01/17 Overall Financial Resource Strain (CARDIA) Answe r Date Recorded How hard is it for you to pa y for the very basics like food, housing, medical care, and heating? Patient declined 02/04/2023 PHQ-2 Answer Date Recorded PHQ-2 Score 6 11/23/2024 [facility] - Occupational Stress Questionnaire Answer Date Recorded Do you feel stress - tense, restless, nervous, or anxious, or unable to sleep at night because your mind is troubled all the time - these days? Rather much 02/04/2023 Exercise Vital Sign Answer Date Recorde d On average, how many days pe r week do you engage in moderate to strenuous exercise (like a brisk walk)? 0 days 04/16/2024 On average, how many minutes do you engage in exercise at this level? 0 min 04/16/2024 Hunger Vital Sign Answer Date Recorded Within the past 12 months, y ou worried that your food would run out before you got the money to buy more. Patient declined Within the past 12 months, t he food you bought just didn't last and you didn't have money to get more. Patient declined PRAPARE - Transportation Answer Date Re corded In the past 12 months, has l ack of transportation kept you from medical appointments or from getting medications? Patient declined 11/10/2024 In the past 12 months, has l ack of transportation kept you from meetings, work, or from getting things needed for daily living? Patient declined 11/10/2024 Depression Answer Date Recor ded PHQ-9 Total Score (max 27) 19 11/23 Nutrition Answer Date Recorded On average, how many serving s of fruits and vegetables do you eat per day (serving size is equal to 1 cup or approximately the size of a tennis ball)? 0-1 02/04/2023 Dental Answer Date Recorded Dental: Regular Dentist Yes 02/05/20 Employment Answer Date Recorded Employment status Permanently disabled Housing Stability Answer Date Recorded What is your living situation today? 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 [address] [place] [address] 02/04/2025 1:00 PM CDT Appointment Department of Radiation Oncology in [place] [address] [place] [address] Kiana Oliver M.D. [address] [place] [address] 02/05/2025 12:45 PM CDT Appointment Department of Radiation Oncology in [address] [address] Kiana Oliver M.D. [address] [place] [phone] 02/05/2025 1:00 PM CDT Appointment Department of Radiation Oncology in [address] [address] Kiana Oliver M.D. [address] [place] [phone] 02/06/2025 1:00 PM CDT Appointment Department of Radiation Oncology in [address] [address] Kiana Oliver M.D. [address] [place] [phone] 02/09/2025 1:00 PM CDT Appointment Department of Radiation Oncology in [address] [address] Kiana Oliver M.D. [address] [place] [phone] 02/10/2025 1:00 PM CDT Appointment Department of Radiation Oncology in [address] [address] Kiana Oliver M.D. [address] [place] [phone] 02/11/2025 1:00 PM CDT Appointment Department of Radiation Oncology in [address] [address] Kiana Oliver M.D. [address] [place] [phone] 02/12/2025 1:00 PM CDT Appointment Department of Radiation Oncology in [place], [place] [address] [place] [address] Kiana Oliver M.D. [address] [place] [phone] 02/12/2025 1:15 PM CDT Appointment Department of Radiation Oncology in [place], [place] [address] [place] [phone] Kiana Oliver M.D. [address] [place] [phone] 02/13/2025 1:00 PM CDT Appointment Department of Radiation Oncology in [place], [place] [address] [place] [address] Kiana Oliver M.D. [address] [place] [phone] 02/16/2025 7:15 AM CDT Ancillary Procedure Department of Ophthalmology in [place], [place] [address] [place] [phone] Madia Tim O.D. [address] [place] [phone] 02/16/2025 8:00 AM CDT Comprehensive Visit Department of Ophthalmology in [place], [place] [address] [place] [phone] Desi Rasmussen O.D. [address] [place] [phone] 02/23/2025 8:15 AM CDT Clinical Communication Virtual Review in [place], [place] [address] [place] [address] 02/24/2025 9:40 AM CDT Office Visit Department of Dermatology in [place], [place] [address] [place] [phone] Felipe Stewart M.D. [address] [place] [phone] 02/24/2025 10:00 AM CDT Office Visit Jeyson Kevin [facility] in [place], [place] [address] [place] [phone] Aide Welch P.A.-C., M.S. [address] [place] [phone] 03/03/2025 9:00 AM CDT Telemedicine Department of Nutrition and Diabetes Education in [address] [address] Katelin Alcaraz APRN, C.N.P., D.N.P. [address] [place] [phone] Mansi Ross M.S., RDN, LD [address] [place] [phone] documented as of this encounter Visit Diagnoses Not on filedocumented in this encounter Additional Health Concerns Infection Onset Date Last Indicated Resolved Time Protective Environment 11/10/2023 11/10/2023 Assessment Noted Time PHQ-9 Depression Total Score: 19 11/23/ 025 12:23 PM HANDLE AND VENT MACHINE OPERATOR documented as of this encounter Care Teams Exercise Physiologist Certified Relationship Specialty Start Date End Date Kelly Mendez APRN, C.N.P., D.N.P. [address], [place] [phone] PCP - General Internal Medicine 12/05/23 Rhea [facility] Rhea Little [facility] lab Laboratory Medicine 02/26/23 documented as of this encounter
--- OUTSIDE RECORDS SUMMARY | 2025-02-02 22:45 | XMS_ITS | Encounter Summary ---
Author Organization [facility] Address [address] [place] [address] Care Team Providers Care Miner Pick Name Role Phone Wally Daniel MD Primary Care Provider Unavailable Wally Daniel MD Unavailable Unavai lable No Ref-Primary, Physician Primary Care Provider Tennille Goddard APRN HIGHWAY CONSTRUCTION INSPECTOR Unavailable [phone]ille Goddard APRN HIGHWAY CONSTRUCTION INSPECTOR Unavailable [phone] Beatris Ty [facility] Unavailable [phone] Dov Alston [facility] Unavailable Unavailable Tennille Goddard APRN HIGHWAY CONSTRUCTION INSPECTOR Primary Care Provider + Dov Alston RP Unavailable Unavailable Dov Alston RP Unavailable Unavailable Reason for Visit * Reason Onset Date Comments MyChart Communication 07/27/2015 appt Encounter Details Date Type Department Care Team (Latest Contact Info) Description 07/27/2015 MyC Medical Advice [address] [address] Wally Daniel MD MyChart Communication (appt ) Social History Tobacco Use Types Packs/Day Years [...] on file 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 documented in this encounter Plan of Treatment Not on file documented as of this encounter Visit Diagnoses Not on filedocumented in this encounter Care Teams Miner Pick Relationship Specialty Start Date End Date Wally Daniel MD PCP - General 12/17/03 12/08/18 Wally Daniel MD PCP - Assigned PCP 10/16/10 12/14/18 No Ref-Primary, Physician PCP - General 12/09/18 08/17/19 Tennille Goddard APRN HIGHWAY CONSTRUCTION INSPECTOR [address] [place], [place] [phone] PCP - Assigned PCP 12/15/18 01/21/[address]ille Goddard APRN HIGHWAY CONSTRUCTION INSPECTOR [address] [place], [place] [phone] PCP - General Nurse Practitioner - Family 08/18/[address] Tennille Goddard APRN HIGHWAY CONSTRUCTION INSPECTOR [address] [place] [address] Assigned PCP 12/15/18 01/07/22 Beatris Ty, [facility] [address] [facility] [place] [address] Pharmacist Pharmacist 04/08/19 01/12/21 Dov Alston [facility] [address] [place] [facility] [place] [address] Pharmacist Pharmacist 06/16/19 Dov Alston [facility] [address] [place] [facility] [place] [address] Assigned MTM Pharmacist 04/15/22 08/04/22 Dov Alston [facility] [address] [facility] [place] [address] Assigned [place] Pharmacist 08/16/22 10/27/22 documented as of this encounter
--- OUTSIDE RECORDS SUMMARY | 2025-02-02 22:46 | XMS_ITS | Encounter Summary ---
Author Organization [facility] Address [address] [place] [address] Care Team Providers Care Keyliner Name Role Phone Wally Daniel MD Primary Care Provider Unavailable Wally Daniel MD Unavailable Unavai lable No Ref-Primary, Physician Primary Care Provider Tennille Goddard APRN PICCOLO MECHANIC Unavailable [phone] Tennille Goddard APRN PICCOLO MECHANIC Unavailable [phone] Beatris Ty [facility] Unavailable [phone] Dov Alston [facility] Unavailable Unavailable Tennille Goddard APRN PICCOLO MECHANIC Primary Care Provider + Dov Alston [facility] Unavailable Unavailable Dov Alston [facility] Unavailable Unavailable Encounter Details Date Type Department Care Team (Late st Contact Info) Description 12/01/2015 MyC Medical Advice [address] [place] [phone] Dov Alston, [facility] [address] [place] [address] Social History Tobacco Use Types Packs/Day Years [...] on file 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 Gender Identity Not on file Sexual Orientation Not on file 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 as of this encounter Plan of Treatment Not on file documented as of this encounter Visit Diagnoses Not on filedocumented in this encounter Care Teams Keyliner Relationship Specialty Start Date End Date Wally Daniel MD PCP - General 12/17/03 12/08/18 Wally Daniel MD PCP - Assigned PCP 10/16/10 12/14/18 No Ref-Primary, Physician PCP - General 12/09/18 08/17/19 Tennille Goddard APRN PICCOLO MECHANIC [address] [place], [place] [phone] PCP - Assigned PCP 12/15/18 01/21/19 Tennille Goddard APRN PICCOLO MECHANIC [address] [place], [place] [phone] PCP - General Nurse Practitioner - Family 08/18/19 Tennille Goddard APRN PICCOLO MECHANIC [address] [place], [place] [phone] Assigned PCP 12/15/18 01/07/22 Beatris Ty [facility] [address] [place] [address] Pharmacist Pharmacist 04/08/19 01/12/21 Dov Alston [facility] [address] [place] [address] Pharmacist Pharmacist 06/16/19 Dov Alston [facility] [address] [place] [address] Assigned MTM Pharmacist 04/15/22 08/04/22 [facility] [address] [place] [address] Assigned MTM Pharmacist 08/16/22 10/27/22 documented as of this encounter
--- OUTSIDE RECORDS SUMMARY | 2025-02-02 22:46 | XMS_ITS | Encounter Summary ---
Author Organization [facility] Address [address] [place] [address] Care Team Providers Care Press Machine Feeder Name Role Phone Kelly Mendez APRN, C.N.P., D.N.P. Primary Car e Provider Reason for Visit * Reason Onset Date Comments PandaDoc Form 12/31/2024 HONORIO Taylor - [id number] Encounter Details Date Type Department Care Team (Latest Contact Info) Description 12/31/2024 Clinical Communication Department of Internal Medicine in [place], [place] [address] [place] [phone] Kelly Mendez APRN, C.N.P., D.N.P. [address] [place] [phone] PandaDoc Form (HONORIO Taylor - [id number]) Social History Tobacco Use Types Packs/Day Years Used Date Smoking Tobacco: Former Cigarettes Q uit: 2008 Passive Smoke Exposure: Never Smokeless Tobacco: Never Alcohol Use Standard Drinks/Week Comments Not Currently 0 (1 standard drink = 0.6 oz pur e alcohol) last 06/23/22 [facility] Utilities Answer Date Recorded In the past 12 months has [employer] electric, gas, oil, or water company threatened to shut off services in your [...] week 02/04/2023 How often do you attend mandaeism or restorationist serv ices? Patient declined 02/04/2023 Do you belong to any clubs o r organizations such as mandaeism groups, unions, fraternal or athletic groups, or [...] Answer Date Recorded PHQ-2 Score 6 11/23/2024 [facility] - Occupational Stress [...] AM CDT Legal Sex Male 9:11 PM DIE TECHNICIAN Gender Identity na 09/07/2021 10:32 AM CDT Sexual Orientation Choose not to disclose 2020 10:32 AM CDT documented as of this encounter Miscellaneous Notes * Telephone Encounter - Miesha Sandoval - 12/31/2024 10:55 AM CST Received back completed form. Form faxed back to the listed facility. Scanned into [facility] TECHNICIAN * Telephone Encounter - Miesha Sandoval - 12/31/2024 8:49 AM CST Form was routed to Chanel Mendez APRN, CNP for electronic review/signature. ROASTERMAN: HONORIO Taylor PHONE NUMBER: [phone] INFO REQUESTED: [id number] INSTRUCTIONS: Fax information to [phone] TECHNICIAN documented in this encounter Plan of Treatment Upcoming Encounters Date Type Department Care Team (Latest Contact Info) Description 02/03/2025 1:00 PM CDT Appointment Department of Radiation Oncology in [address] [phone] Kiana Oliver M.D. [address] [place] [phone] 02/04/2025 1:00 PM CDT Appointment Department of Radiation Oncology in [address] [address] Kiana Oliver M.D. [address] [place] [phone] 02/05/2025 12:45 PM CDT Appointment Department of Radiation Oncology in [address] [phone] Kiana Oliver M.D. [address] [place] [phone] 02/05/2025 1:00 PM CDT Appointment Department of Radiation Oncology in [address] [phone] Kiana Oliver M.D. [address] [place] [phone] 02/06/2025 1:00 PM CDT Appointment Department of Radiation Oncology in [address] [phone] Kiana Oliver M.D. [address] [place] [phone] 02/09/2025 1:00 PM CDT Appointment Department of Radiation Oncology in [address] [address] Kiana Oliver M.D. [address] [place] [address] 02/10/2025 1:00 PM CDT Appointment Department of Radiation Oncology in [address] [address] Kiana Oliver M.D. [address] [place] [phone] 02/11/2025 1:00 PM CDT Appointment Department of Radiation Oncology in [address] [phone] Kiana Oliver M.D. [address] [place] [phone] 02/12/2025 1:00 PM CDT Appointment Department of Radiation Oncology in [address] [address] Kiana Oliver M.D. [address] [place] [phone] 02/12/2025 1:15 PM CDT Appointment Department of Radiation Oncology in [address] [phone] Kiana Oliver M.D. [address] [place] [phone] 02/13/2025 1:00 PM CDT Appointment Department of Radiation Oncology in [place], [place] [address] [place] [phone] Kiana Oliver M.D. [address] [place] [phone] 02/16/2025 7:15 AM CDT Ancillary Procedure Department of Ophthalmology in [place], [place] [address] [place] [phone] Maida Tim O.D. [address] [place] [phone] 02/16/2025 8:00 AM CDT Comprehensive Visit Department of Ophthalmology in [place], [place] [address] [place] [phone] Desi Rasmussen O.D. [address] [place] [phone] 02/23/2025 8:15 AM CDT Clinical Communication Virtual Review in [place], [place] [address] [place] [address] 02/24/2025 9:40 AM CDT Office Visit Department of Dermatology in [place], [place] [address] [place] [phone] Felipe Stewart M.D. [address] [place] [phone] 02/24/2025 10:00 AM CDT [facility] [place], [place] [address] [place] [phone] Aide Welch P.A.Willie., M.S. [address] [place] [phone] 03/03/2025 9:00 AM CDT Telemedicine Department of Nutrition and Diabetes Education in [place], [place] [address] [place] [address] Katelin Alcaraz APRN, C.N.P., D.N.P. [address] [place] [phone] Mansi Ross M.S., RDN, LD [address] [place] [phone] documented as of this encounter Visit Diagnoses Not on filedocumented in this encounter Additional Health Concerns Infection Onset Date Last Indicated Resolved Time Protective Environment 11/10/2023 11/10/2023 Assessment Noted Time PHQ-9 Depression Total Score: 19 025 12:23 PM DIE TECHNICIAN documented as of this encounter Care Teams Press Machine Feeder Relationship Specialty Start Date End Date Kelly Mendez APRN, C.N.P., D.N.P. [address] [place] [phone] PCP - General Internal Medicine 12/05/23 Rhea [facility] [place] or Anabel [facility] lab Laboratory Medicine 02/26/23 documented as of this encounter
--- OUTSIDE RECORDS SUMMARY | 2025-02-02 22:46 | XMS_ITS | Encounter Summary ---
Author Organization [facility] Address [address] [place] [address] Care Team Providers Care Alterations Sewer Name Role Phone Kelly Mendez APRN C.N.P., D.N.P. 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 [address] [place] [address] Phone: tel: fax: [facility] Region Referral ID Status Reason Start Date Expiration Date V isits Requested Visits Authorized [id number] Authorized 12/08/2024 03/10/2026 10 10 E BALANCER Reason for Visit * Radiation Therapy (Routine) - Authorized Specialty Diagnoses / Procedures Referred By Juanito ayala Referred To Contact Diagnoses 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 Procedures Management Visit Kiana Oliver M.D. [address] [place] [address] Phone: tel: fax: [facility] Region Referral ID Status Reason Start Date Expiration Date V isits Requested Visits Authorized [id number] Authorized 12/08/2024 03/10/2026 10 10 Encounter Details Date Type Department Care Team (Latest Contact Info) Description 01/07/2025 12:56 PM SCALE BALANCER - 01/07/2025 3:32 PM SCALE BALANCER Hospital Encounter Department of Radiation Oncology in [place], [place] [address] [place] [address] Kevin Joseph M.D. [address] [place] [address] 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 Social History Tobacco Use Types Packs/Day Years Used Date Smoking Tobacco: Former Cigarettes Q uit: 2008 Passive Smoke Exposure: Never Smokeless Tobacco: Never Alcohol Use Standard Drinks/Week Comments Not Currently 0 (1 standard drink = 0.6 oz pur e alcohol) last 06/23/22 [facility] Utilities Answer Date Recorded In the past 12 months has e [employer], gas, oil, or water [employer] threatened to shut off services in your [...] week 02/04/2023 How often do you attend lutheran or sikh serv ices? Patient declined 02/04/2023 Do you belong to any clubs o r organizations such as lutheran groups, unions, fraternal or athletic groups, or [...] Answer Date Recorded PHQ-2 Score 6 11/23/2024 [facility] - Occupational Stress Questionnaire Answer Date Recorded [...] AM CDT Legal Sex Male 9:11 PM SCALE BALANCER Gender Identity na 09/07/2021 10:32 AM CDT Sexual Orientation Choose not to disclose 2020 10:32 AM CDT documented as of this encounter Last Filed Vital Signs Vital Sign Reading Time Taken Comments Blood Pressure 115/77 01/07/2025 1:47 PM SCALE BALANCER Pulse 114 01/07/2025 1:47 PM SCALE BALANCER Temperature - - Respiratory Rate - - Oxygen Saturation - - Inhaled Oxygen Concentration - - Weight 51.6 kg (113 lb 12.1 oz) 01/07/2025 1:47 PM SCALE BALANCER Height - - Body Mass Index 18.57 11/10/2024 1:00 PM SCALE BALANCER documented in this encounter Medications at Time of Discharge acetaminophen (TYLENOL) 500 mg tablet Take 1 tablet (500 mg total) by mouth every 6 (six) hours as needed for pain. 11/13/2023 alendronate (Fosamax) 35 mg tablet Take 1 tablet (35 mg total) by mouth once a week. Take with 8oz of water, on an empty stomach. Remain upright for 30min. 12 tablet 20 01/26/2025 10:52 AM CDT 11/05/2024 11/05/20 29 amitriptyline 2 % gabapentin 5 % ketamine 5 % in lipoderm Apply topically daily. Apply to lower back for on a daily basis. 60 g 2 08/15/2023 4:37 PM CDT 08/14/2023 amoxicillin (AmoxiL) 500 mg capsule Take 4 caps (2000 mg) 1 hour prior to invasive dental procedure. 4 capsule 11 05/21/[address] tablet Take 1 tablet (81 mg total) by mouth daily. Start taking from 11/15/2023 120 tablet 07/11/2024 10:25 AM CDT 07/11/2024 blood-glucose meter misc Test as directed for diabetes control. 1 each 12/12/2023 11:05 AM SCALE BALANCER 12/11/2023 calcium citrate-vitamin D3 (Citracal + D3) 315 mg-5 mcg (200 Unit) per tablet Take 1 tablet by mouth 2 (two) times a day with meals. 200 tablet 3 10/20/2024 10/20/20 25 famotidine (Pepcid) 20 mg tablet Take 1 tablet (20 mg total) by mouth 2 (two) times a day as needed for heartburn. 60 tablet 1 11/14/2024 12:18 PM SCALE BALANCER 11/14/2024 fluoride, sodium, (PreviDent) 1.1 % gel dental gelIndications:prev ention of dental caries Apply 1 Application to the mouth or throat daily Indications: tooth decay prevention. Floss, brush, baking soda rinse. Apply thin gel ribbon to trays wear 5 minutes. Remove trays expectorate excess gel. No eating drinking or rinsing for 30 min. 100 g 12 12/18/2024 12/18/19 26 folic acid 1 mg tablet Take 1 tablet (1 mg total) by mouth daily. 90 tablet 3 10/29/2024 11:46 AM SCALE BALANCER 06/05/2024 gabapentin (NEURONTIN) 300 mg capsule Take 2 capsules (600 mg total) by mouth at bedtime. 04/07/2024 HYDROcodone-acetami nophen (Lamar) 7.5-325 mg per tabletIndications:C hronic Pain/Nonacute Pain Take 1 tablet by mouth every 8 (eight) hours as needed for moderate pain or score 4-6 of 10. Indication: Chronic Pain/Nonacute Pain. 60 tablet 11/17/2024 insulin lispro (HumaLOG KwikPen Insulin) 100 unit/mL pen Inject 0-13 Units under the skin 3 times a day. For blood sugar 140 - 179: Take 2 units. 180 - 219: Take 4 units. 220 - 259: Take 6 units. 260 - 299: Take 8 units. 300 - 339: Take 10 units. 340 - 379: Take 12 units. 380-399: Take 13 units. Greater than 400: Report to your local ED or call 911. 15 mL 2 11/14/2024 12:18 PM SCALE BALANCER 11/14/2024 ondansetron ODT (Zofran-ODT) 4 mg disintegrating tablet Dissolve 1 tablet (4 mg total) in the mouth every 8 (eight) hours as needed for nausea or vomiting. 30 tablet 3 11/26/2024 3:29 PM SCALE BALANCER 06/05/2024 pen needle, diabetic (BD Ultra-Fine Short Pen Needle) 31 gauge x 5/16 needle Use 3 times a day 300 each 1 11/14/2024 12:18 PM SCALE BALANCER 11/14/2024 rOPINIRole (Requip) 0.25 mg tabletIndications:R estless Leg Syndrome Take 2 tablets (0.5 mg total) by mouth at bedtime as needed (RLS). 30 tablet 11/26/2024 3:29 PM SCALE BALANCER 11/13/2024 rosuvastatin (Crestor) 5 mg tablet Take 1 tablet (5 mg total) by mouth daily. 90 tablet 3 12/29/2024 1:25 PM SCALE BALANCER 06/05/2024 sennosides-docusate sodium (Stool Softener-Stimulant Laxat) 8.6-50 mg per tabletIndications:T ransplant Liver (HCC),Medication Therapy [employer] Not Anticoagulant,Drug Induced Constipation Take 1 tablet by mouth 2 (two) times a day. 100 tablet 02/22/2024 5:09 PM CDT 02/22/2024 tacrolimus (Prograf) 1 mg capsuleIndications: Transplant Liver (HCC),Medication Therapy Long-Term Not Anticoagulant Take 2 capsules (2 mg total) by mouth 2 (two) times a day. 01/01 dose change 360 capsule 3 01/01/2025 01/01/20 26 blood-glucose sensor (FreeStyle Apryl 3 Sensor) deviceIndications:D iabetes Mellitus Type 2 Hyperglycemia (HCC) 1 each every 14 (fourteen) days. 6 each 3 11/26/2024 3:29 PM SCALE BALANCER 09/04/2024 01/29/20 25 insulin glargine 100 unit/mL (3 mL) pen Inject 12 Units under the skin every morning. Pharmacy select brand per patient insurance/prefer ence. 01/29/20 25 insulin glargine-yfgn (Semglee,insulin glarg-yfgn,Pen) 100 unit/mL (3 mL) penIndications:Diab etes Mellitus Type 2 Hyperglycemia (HCC) Inject 12-24 Units under the skin every morning. Start with 16 units every morning, change as directed. 15 mL 11 11/25/2024 01/29/20 25 documented as of this encounter Progress Notes * Kevin Joseph M.D. - 01/07/2025 1:45 PM CST SUBJECTIVE REASON FOR VISIT Evaluation for side effects while receiving radiation treatment for 1. 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 SUPERVISED BY: Kevin Joseph M.D. ([id number]) HISTORY OF PRESENT ILLNESS Mr. Kevin Perry is a 64 y.o. adult with squamous cell carcinoma who underwent Mohs micrographicsurgery on November 24, 2024. He is currently undergoing radiation therapy. Treatment Course: 1xHead Plan ID Fractions Dose / Fraction (cGy) Dose Treated (cGy) Dose Planned (cGy) First Treatment Last Treatment Elapsed Days [id number] [phone] 01/05/2025 01/07/2025 2 Course Summary 01/05/2025 01/07/2025 2 The patient was seen and examined today with Dr. Joseph. The patient reports no pain or new symptoms related to his treatment field. The wound bed is being protected with Vaseline and non-stick bandage. It is being treated with vinegar soaks daily and it being exposed to air for a part of each day. No signs of infection to the wound or surrounding skin. OBJECTIVE BP 115/77 (BP Location: Left arm, Patient Position: Sitting, Cuff Size: Regular) Pulse (!) 114 Wt 51.6 kg BMI 18.57 kg/m?? PHYSICAL EXAM General: Alert and oriented in no apparent distress. 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 Dr. Joseph was in for any questions or concerns. Killian will contact us with any questions or concerns. We will continue with radiation treatment as planned. Signed by: Karma Barcenas R.N. 01/07/2025 2:13 PM SCALE BALANCER I saw and evaluated the patient and participated in the guadarrama portions of the service. I reviewed thedocumentation of Karma Barcenas R.N. and agree with the findings and plan. The patient appears well on exam. His wound is bandaged. He is here with his Millicent. He is tolerating treatment well. He will continue with treatment as planned. Signed by: Kevin Joseph M.D. 01/07/2025 3:32 PM SCALE BALANCER [facility] [address] [place] [id number] E BALANCER documented in this encounter Plan of Treatment Upcoming Encounters Date Type Department Care Team (Latest Contact Info) Description 02/03/2025 1:00 PM CDT Appointment Department of Radiation Oncology in [address] [phone] Kiana Oliver M.D. [address] [place] [phone] 02/04/2025 1:00 PM CDT Appointment Department of Radiation Oncology in [address] [phone] Kiana Oliver M.D. [address] [place] [phone] 02/05/2025 12:45 PM CDT Appointment Department of Radiation Oncology in [address] [phone] Kiana Oliver M.D. [address] [place] [phone] 02/05/2025 1:00 PM CDT Appointment Department of Radiation Oncology in [address] [place] [address] Kiana Oliver M.D. [address] [place] [phone] 02/06/2025 1:00 PM CDT Appointment Department of Radiation Oncology in [place], [place] [address] [place] [phone] Kiana Oliver M.D. [address] [place] [address] 02/09/2025 1:00 PM CDT Appointment Department of Radiation Oncology in [address] [phone] Kiana Oliver M.D. [address] [place] [phone] 02/10/2025 1:00 PM CDT Appointment Department of Radiation Oncology in [place], [place] [address] [place] [phone] Kiana Oliver M.D. [address] [place] [phone] 02/11/2025 1:00 PM CDT Appointment Department of Radiation Oncology in [place], [place] [address] [place] [address] Kiana Oliver M.D. [address] [place] [address] 02/12/2025 1:00 PM CDT Appointment Department of Radiation Oncology in [address] [phone] Kiana Oliver M.D. [address] [place] [phone] 02/12/2025 1:15 PM CDT Appointment Department of Radiation Oncology in [place], [place] [address] [place] [address] Kiana Oliver M.D. [address] [place] [phone] 02/13/2025 1:00 PM CDT Appointment Department of Radiation Oncology in [place], [place] [address] [place] [phone] Kiana Oliver M.D. [address] [place] [phone] 02/16/2025 7:15 AM CDT Ancillary Procedure Department of Ophthalmology in [place], [place] [address] [place] [phone] Maida Tim O.D. [address] [place] [phone] 02/16/2025 8:00 AM CDT Comprehensive Visit Department of Ophthalmology in [place], [place] [address] [place] [phone] Deis Rasmussen O.D. [address] [place] [phone] 02/23/2025 8:15 AM CDT Clinical Communication Virtual Review in [place], [place] 200 [place] [address] 02/24/2025 9:40 AM CDT Office Visit Department of Dermatology in [place], [place] [address] [place] [phone] Felipe Stewart M.D. [address] [place] [phone] 02/24/2025 10:00 AM CDT Office Visit Jeyson RubyKathrin milan [facility] for Transplantation and Clinical Regeneration in [place], [place] [address] [place] [phone] Aide Welch P.A.-C., M.S. [address] [place] [address] 03/03/2025 9:00 AM CDT Telemedicine Department of Nutrition and Diabetes Education in [place], [place] [address] [place] [phone] Katelin Alcaraz APRN, C.N.P., D.N.P. [address] [place] [phone] Mansi Ross M.S., RDN, LD [address] [place] [phone] Scheduled Orders Name Type Priority Associated Diagnoses Orde r Schedule Management Visit Radiation Oncology Routine 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 Once for 1 Occurrences starting 01/07/2025 until 01/07/2025 documented as of this encounter Visit Diagnoses Diagnosis 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 documented in this encounter Additional Health Concerns Infection Onset Date Last Indicated Resolved Time Protective Environment 11/10/2023 11/10/2023 Assessment Noted Time PHQ-9 Depression Total Score: 19 025 12:23 PM SCALE BALANCER documented as of this encounter Care Teams Alterations Sewer Relationship Specialty Start Date End Date Kelly Mendez APRN, C.N.P., D.N.P. [address] [place] [phone] PCP - General Internal Medicine 12/05/23 Rhea [facility] [place] or Anabel [facility] lab Laboratory Medicine 02/26/23 documented as of this encounter
--- OUTSIDE RECORDS SUMMARY | 2025-02-02 22:46 | XMS_ITS | Encounter Summary ---
Author Organization [facility] Address [address] [place] [address] Care Team Providers Care Computer Numerical Control Machinist Name Role Phone Kelly Mendez APRN C.N.P., D.N.P. Primary Car e Provider Reason for Visit * Radiation Therapy (Routine) - Authorized Specialty Diagnoses / Procedures Referred By Juanito ayala Referred To Contact Diagnoses 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 Procedures Prior Auth Rad Tx LA IMRT COMPLEX LA GUIDANCE FOR LOC RAD TX LA IMRT RADIOTHERAPY PLAN IMRT Kiana Oliver M.D. 200 [place] [address] Phone: tel: fax: [facility] Radiation Oncology at [place] [address] [place] [phone] Referral ID Status Reason Start Date Expiration Date V isits Requested Visits Authorized [id number] Authorized 12/22/2024 03/10/2026 15 30 Encounter Details Date Type Department Care Team (Late st Contact Info) Description 01/05/2025 1:12 PM PREPRESS TECHNICIAN Hospital Encounter Department of Radiation Oncology in [place], [place] [address] [place] [phone] Kiana Oliver M.D. 200 [place] [phone] Social History Tobacco Use Types Packs/Day Years Used Date Smoking Tobacco: Former Cigarettes Q uit: 2008 Passive Smoke Exposure: Never Smokeless Tobacco: Never Alcohol Use Standard Drinks/Week Comments Not Currently 0 (1 standard drink = 0.6 oz pur e alcohol) last 06/23/22 [facility] Utilities Answer Date Recorded In the past 12 months has e electric, gas, oil, or water company threatened [...] week 02/04/2023 How often do you attend orthodoxy or christian serv ices? Patient declined 02/04/2023 Do you belong to any clubs o r organizations such as orthodoxy groups, unions, fraternal or athletic groups, or [...] Answer Date Recorded PHQ-2 Score 6 11/23/2024 [facility] of Occupat ional Health - Occupational [...] AM CDT Legal Sex Male 9:11 PM PREPRESS TECHNICIAN Gender Identity na 09/07/2021 10:32 AM CDT Sexual Orientation Choose not to disclose 2020 10:32 AM CDT documented as of this encounter Plan of Treatment Upcoming Encounters Date Type Department Care Team (Latest Contact Info) Description 02/03/2025 1:00 PM CDT Appointment Department of Radiation Oncology in [address] [phone] Kiana Oliver M.D. [address] [place] [phone] 02/04/2025 1:00 PM CDT Appointment Department of Radiation Oncology in [address] [address] Kiana Oliver M.D. [address] [place] [phone] 02/05/2025 12:45 PM CDT Appointment Department of Radiation Oncology in [address] [address] Kiana Oliver M.D. [address] [place] [phone] 02/05/2025 1:00 PM CDT Appointment Department of Radiation Oncology in [address] [address] Kiana Oliver M.D. [address] [place] [phone] 02/06/2025 1:00 PM CDT Appointment Department of Radiation Oncology in [address] [address] Kiana Oliver M.D. [address] [place] [phone] 02/09/2025 1:00 PM CDT Appointment Department of Radiation Oncology in [place], [place] [address] [place] [phone] Kiana Oliver M.D. [address] [place] [phone] 02/10/2025 1:00 PM CDT Appointment Department of Radiation Oncology in [place], [place] [address] [place] [phone] Kiana Oliver M.D. [address] [place] [phone] 02/11/2025 1:00 PM CDT Appointment Department of Radiation Oncology in [address] [address] Kaina Oliver M.D. [address] [place] [phone] 02/12/2025 1:00 PM CDT Appointment Department of Radiation Oncology in [address] [address] Kiana Oliver M.D. [address] [place] [phone] 02/12/2025 1:15 PM CDT Appointment Department of Radiation Oncology in [address] [address] Kiana Oliver M.D. [address] [place] [phone] 02/13/2025 1:00 PM CDT Appointment Department of Radiation Oncology in [address] [address] Kiana Oliver M.D. [address] [place] [phone] 02/16/2025 7:15 AM CDT Ancillary Procedure Department of Ophthalmology in [place], [place] [address] [place] [phone] Maida Tim O.D. [address] [place] [phone] 02/16/2025 8:00 AM CDT Comprehensive Visit Department of Ophthalmology in [place], [place] [address] [place] [phone] Desi Rasmussen O.D. [address] [place] [phone] 02/23/2025 8:15 AM CDT Clinical Communication Virtual Review in [place], [place] 200 [place] [address] 02/24/2025 9:40 AM CDT Office Visit Department of Dermatology in [address] [phone] Felipe Stewart M.D. [address] [place] [phone] 02/24/2025 10:00 AM CDT Office Visit Jeyson milan [facility] Transplantation and Clinical Regeneration in [place], [place] [address] [place] [phone] Aide Welch P.A.Willie., M.S. [address] [place] [phone] 03/03/2025 9:00 AM CDT Telemedicine Department of Nutrition and Diabetes Education in [address] [phone] Katelin Alcaraz, MARCUS, C.N.P., D.N.P. [address] [place] [phone] Mansi Ross M.S., RDN, LD [address] [place] [address] documented as of this encounter Visit Diagnoses Not on filedocumented in this encounter Additional Health Concerns Infection Onset Date Last Indicated Resolved Time Protective Environment 11/10/2023 11/10/2023 Assessment Noted Time PHQ-9 Depression Total Score: 19 025 12:23 PM PREPRESS TECHNICIAN documented as of this encounter Care Teams Computer Numerical Control Machinist Relationship Specialty Start Date End Date Kelly Mendez APRN, C.N.P., D.N.P. [address] [place] [phone] PCP - General Internal Medicine 12/05/23 [facility] [place] or Anabel [facility] lab Laboratory Medicine 02/26/23 documented as of this encounter
--- OUTSIDE RECORDS SUMMARY | 2025-02-02 22:46 | XMS_ITS | Encounter Summary ---
Author Organization [facility] Address [address] [place] [address] Care Team Providers Care Account Manager Relief Name Role Phone Kelly Mendez APRN C.N.PKathrin, D.N.P. Primary Car e Provider Encounter Details Date Type Department Care Team (Late st Contact Info) Description 12/11/2024 Orders Only Department of Dermatology in [place], [place] [address] [place] [address] Elsi Goldsmith M.D. [address] [place] [address] Social History Tobacco Use Types Packs/Day Years Used Date Smoking Tobacco: Former Cigarettes Q uit: 2008 Passive Smoke Exposure: Never Smokeless Tobacco: Never Alcohol Use Standard Drinks/Week Comments Not Currently 0 (1 standard drink = 0.6 oz pur e alcohol) last 06/23/22 [facility] Utilities Answer Date Recorded In the past 12 months has e electric, gas, oil, or water [employer] threatened to shut off services in your [...] week 02/04/2023 How often do you attend anglican or orthodox serv ices? Patient declined 02/04/2023 Do you belong to any clubs o r organizations such as anglican groups, unions, fraternal or athletic groups, or [...] Answer Date Recorded PHQ-2 Score 6 11/23/2024 [facility] of Occupat ional Health - Occupational Stress [...] AM CDT Legal Sex Male 9:11 PM MAT INSPECTOR Gender Identity na 09/07/2021 10:32 AM CDT Sexual Orientation Choose not to disclose 2020 10:32 AM CDT documented as of this encounter Plan of Treatment Upcoming Encounters Date Type Department Care Team (Latest Contact Info) Description 02/03/2025 1:00 PM CDT Appointment Department of Radiation Oncology in [place], [place] [address] [place] [phone] [place] [address] 02/04/2025 1:00 PM CDT Appointment Department of Radiation Oncology in [place] [address] [place] [address] Kiana Oliver M.D. [address] [place] [phone] 02/05/2025 12:45 PM CDT Appointment Department of Radiation Oncology in [place], [place] [address] [place] [address] Kiana Oliver M.D. [address] [place] [phone] 02/05/2025 1:00 PM CDT Appointment Department of Radiation Oncology in [place], [place] [address] [place] [phone] Kiana Oliver M.D. [address] [place] [phone] 02/06/2025 1:00 PM CDT Appointment Department of Radiation Oncology in [place], [place] [address] [place] [phone] Kiana Oliver M.D. [address] [place] [phone] 02/09/2025 1:00 PM CDT Appointment Department of Radiation Oncology in [place], [place] [address] [place] [address] Kiana Oliver M.D. [address] [place] [phone] 02/10/2025 1:00 PM CDT Appointment Department of Radiation Oncology in [place], [place] [address] [place] [address] Kiana Oliver M.D. [address] [place] [phone] 02/11/2025 1:00 PM CDT Appointment Department of Radiation Oncology in [place], [place] [address] [place] [phone] Kiana Oliver M.D. [address] [place] [phone] 02/12/2025 1:00 PM CDT Appointment Department of Radiation Oncology in [place], [place] [address] [place] [address] Kiana Oliver M.D. [address] [place] [phone] 02/12/2025 1:15 PM CDT Appointment Department of Radiation Oncology in [address] [address] Kiana Oliver M.D. [address] [place] [phone] 02/13/2025 1:00 PM CDT Appointment Department of Radiation Oncology in [place], [place] [address] [place] [address] Kiana Oliver M.D. [address] [place] [phone] 02/16/2025 7:15 AM CDT Ancillary Procedure Department of Ophthalmology in [place], [place] [address] [place] [phone] Maida Tim O.D. [address] [place] [phone] 02/16/2025 8:00 AM CDT Comprehensive Visit Department of Ophthalmology in [place], [place] [address] [place] [phone] Desi Rasmussen O.D. [address] [place] [phone] 02/23/2025 8:15 AM CDT Clinical Communication Virtual Review in [place], [place] 200 [place] [address] 02/24/2025 9:40 AM CDT Office Visit Department of Dermatology in [place], [place] [address] [place] [phone] Felipe Stewart M.D. [address] [place] [phone] 02/24/2025 10:00 AM CDT Office Visit Jeyson milan [facility] for Transplantation and Clinical Regeneration in [address] [address] Aide Welch P.A.-C., M.S. [address] [place] [phone] 03/03/2025 9:00 AM CDT Telemedicine Department of Nutrition and Diabetes Education in [address] [address] Katelin Alcaraz APRN, C.N.P., D.N.P. [address] [place] [phone] Mansi Ross M.S., RDN, LD [address] [place] [phone] documented as of this encounter Visit Diagnoses Not on filedocumented in this encounter Additional Health Concerns Infection Onset Date Last Indicated Resolved Time Protective Environment 11/10/2023 11/10/2023 Assessment Noted Time PHQ-9 Depression Total Score: 19 11/23/ 025 12:23 PM MAT INSPECTOR documented as of this encounter Care Teams Account Manager Relief Relationship Specialty Start Date End Date Kelly Mendez APRN, C.N.P., D.N.P. [address] [place] [phone] PCP - General Internal Medicine 12/05/23 [facility] Lab [place] or Anabel [facility] lab Laboratory Medicine 02/26/23 documented as of this encounter
--- OUTSIDE RECORDS SUMMARY | 2025-02-02 22:46 | XMS_ITS | Encounter Summary ---
Author Organization [facility] Address [address] [place] [address] Care Team Providers Care Gas Adjuster Name Role Phone Wally Daniel MD Primary Care Provider Unavailable Wally Daniel MD Unavailable Unavai lable No Ref-Primary, Physician Primary Care Provider Tennille Goddard APRN [facility] Unavailable [phone] Tennille Goddard APRN [facility] Unavailable [phone] Beatris Ty [facility] Unavailable [phone] Dov Alston [facility] Unavailable Unavailable Tennille Goddard APRN [facility] Primary Care Provider + Dov Alston RPH Unavailable Unavailable Dov Alston RPH Unavailable Unavailable Encounter Details Date Type Department Care Team (Late st Contact Info) Description 02/17/2015 Abstract [facility] [place] [address] [facility] [address] [place] [address] Kael Frye MD [facility] [place] [address] [place] [address] [address] [place] [address] [facility], OP REPORT, 02/17/15 Social History Tobacco Use Types Packs/Day Years [...] on file Legal Sex Male 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 Gender Identity Not on file Sexual Orientation Not on file 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 as of this encounter Plan of Treatment Not on file documented as of this encounter Visit Diagnoses Not on filedocumented in this encounter Care Teams Gas Adjuster Relationship Specialty Start Date End Date Wally Daniel MD PCP - General 12/17/03 12/08/18 Wally Daniel MD PCP - Assigned PCP 10/16/10 12/14/18 No Ref-Primary, Physician PCP - General 12/09/18 08/17/19 Tennille Goddard APRN [facility] [address] [place] [address] PCP - Assigned PCP 12/15/18 01/21/19 Tennille Goddard APRN [facility] [address] [place], [place] [phone] PCP - General Nurse Practitioner - Family 08/18/19 Tennille Goddard APRN [facility] [id number] [place] [address] Assigned PCP 12/15/18 01/07/22 Beatris Ty [facility] [address] [place] [address] Pharmacist Pharmacist 04/08/19 01/12/21 Dov Alston [facility] [address] [place] [address] Pharmacist Pharmacist 06/16/19 Dov Alston [facility] [address] [place] [address] Assigned MTM Pharmacist 04/15/22 08/04/22 Dov Alston [facility] [address] [address] [address] Assigned MTM Pharmacist 08/16/22 10/27/22 documented as of this encounter
--- OUTSIDE RECORDS SUMMARY | 2025-02-02 22:46 | XMS_ITS | Encounter Summary ---
Author Organization [facility] Address [address] [place] [address] Care Team Providers Care Judge Name Role Phone Kelly Mendez APRN C.N.P., D.N.P. Primary Car e Provider Reason for Visit * Radiation Therapy (Routine) - Authorized Specialty Diagnoses / Procedures Referred By Juanito ayala Referred To Contact Diagnoses 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 Procedures Prior Auth Rad Tx [place] IMRT COMPLEX [place] GUIDANCE FOR LOC RAD TX [place] IMRT RADIOTHERAPY PLAN IMRT Kiana Oliver M.D. [address] [place] [address] Phone: tel: fax: [facility] Radiation Oncology at [place] [address] [place] [phone] Referral ID Status Reason Start Date Expiration Date V isits Requested Visits Authorized [id number] Authorized 12/22/2024 03/10/2026 15 30 Encounter Details Date Type Department Care Team (Late st Contact Info) Description 01/06/2025 12:37 PM PASTRY ASSISTANT Hospital Encounter Department of Radiation Oncology in [place], [place] [address] [place] [phone] Kiana Oliver M.D. [address] [place] [phone] Social History Tobacco Use Types Packs/Day Years Used Date Smoking Tobacco: Former Cigarettes Q uit: 2008 Passive Smoke Exposure: Never Smokeless Tobacco: Never Alcohol Use Standard Drinks/Week Comments Not Currently 0 (1 standard drink = 0.6 oz pur e alcohol) last 06/23/22 [facility] Utilities Answer Date Recorded In the [...] week 02/04/2023 How often do you attend evangelical or jain serv ices? Patient declined 02/04/2023 Do you belong to any clubs o r organizations such as evangelical groups, unions, fraternal or athletic groups, or [...] Answer Date Recorded PHQ-2 Score 6 11/23/2024 [facility] of Occupat ional Health - Occupational [...] AM CDT Legal Sex Male 9:11 PM PASTRY ASSISTANT Gender Identity na 09/07/2021 10:32 AM CDT Sexual Orientation Choose not to disclose 2020 10:32 AM CDT documented as of this encounter Plan of Treatment Upcoming Encounters Date Type Department Care Team (Latest Contact Info) Description 02/03/2025 1:00 PM CDT Appointment Department of Radiation Oncology in [address] [address] Kiana Oliver M.D. [address] [place] [phone] 02/04/2025 1:00 PM CDT Appointment Department of Radiation Oncology in [address] [phone] Kiana Oliver M.D. [address] [place] [phone] 02/05/2025 12:45 PM CDT Appointment Department of Radiation Oncology in [address] [address] Kiana Oliver M.D. [address] [place] [phone] 02/05/2025 1:00 PM CDT Appointment Department of Radiation Oncology in [address] [address] Kiana Oliver M.D. [address] [place] [phone] 02/06/2025 1:00 PM CDT Appointment Department of Radiation Oncology in [address] [address] Kiana Oliver M.D. [address] [place] [phone] 02/09/2025 1:00 PM CDT Appointment Department of Radiation Oncology in [place], [place] [address] [place] [phone] Kiana Oliver M.D. [address] [place] [phone] 02/10/2025 1:00 PM CDT Appointment Department of Radiation Oncology in [place], [place] [address] [place] [phone] Kiana Oliver M.D. [address] [place] [phone] 02/11/2025 1:00 PM CDT Appointment Department of Radiation Oncology in [address] [address] Kiana Oliver M.D. [address] [place] [phone] 02/12/2025 1:00 PM CDT Appointment Department of Radiation Oncology in [address] [address] Kiana Oliver M.D. [address] [place] [phone] 02/12/2025 1:15 PM CDT Appointment Department of Radiation Oncology in [address] [address] Kiana Oliver M.D. [address] [place] [phone] 02/13/2025 1:00 PM CDT Appointment Department of Radiation Oncology in [address] [address] Kiana Oliver M.D. [address] [place] [phone] 02/16/2025 7:15 AM CDT Ancillary Procedure Department of Ophthalmology in [place], [place] [address] [place] [phone] Maida Tim O.D. [address] [place] [phone] 02/16/2025 8:00 AM CDT Comprehensive Visit Department of Ophthalmology in [place], [place] [address] [place] [phone] Desi Rasmussen O.D. [address] [place] [phone] 02/23/2025 8:15 AM CDT Clinical Communication Virtual Review in [place], [place] 200 [place] [address] 02/24/2025 9:40 AM CDT Office Visit Department of Dermatology in [address] [address] Felipe Stewart M.D. [address] [place] [phone] 02/24/2025 10:00 AM CDT Office Visit Jeyson milan [facility] for Transplantation and Clinical Regeneration in [place], [place] [address] [place] [phone] Aide Welch P.A.Willie., M.S. [address] [place] [phone] 03/03/2025 9:00 AM CDT Telemedicine Department of Nutrition and Diabetes Education in [address] [address] Katelin Alcaraz, MARCUS, C.N.P., D.N.P. [address] [place] [phone] Mansi Ross M.S., RDN, LD [address] [place] [address] documented as of this encounter Visit Diagnoses Not on filedocumented in this encounter Additional Health Concerns Infection Onset Date Last Indicated Resolved Time Protective Environment 11/10/2023 11/10/2023 Assessment Noted Time PHQ-9 Depression Total Score: 19 025 12:23 PM PASTRY ASSISTANT documented as of this encounter Care Teams Judge Relationship Specialty Start Date End Date Kelly Mendez APRN, C.N.P., D.N.P. [address] [place] [phone] PCP - General Internal Medicine 12/05/23 [facility] [place] or Anabel [facility] lab Laboratory Medicine 02/26/23 documented as of this encounter
--- OUTSIDE RECORDS SUMMARY | 2025-02-02 22:46 | XMS_ITS | Encounter Summary ---
Author Organization [facility] Address [address] [place] [address] Care Team Providers Care Mask Inspector Name Role Phone Kelly Mendez APRN C.N.PKathrin, D.N.P. Primary Car e Provider Reason for Referral * Transplant (Routine) - Authorized Specialty Diagnoses / Procedures Referred By Juanito ayala Referred To Contact Transplant Diagnoses Transplant Liver (HCC) Medication Therapy Residential Not Anticoagulant Aide Welch P.A.-C., M.S. [address] [place] [address] Phone: tel: fax: [facility] Referral ID Status Reason Start Date Expiration Date V isits Requested Visits Authorized [id number] Authorized 01/01/2025 07/03/2026 1 1 NING ATTENDANT * Transplant (Routine) - Closed Specialty Diagnoses / Procedures Referred By Juanito ayala Referred To Contact Transplant Diagnoses Transplant Liver (HCC) Medication Therapy Billet Header Not Anticoagulant Aide Welch P.A.-C., M.S. [address] [place] [address] Phone: tel: fax: [facility] Referral ID Status Reason Start Date Expiration Date Visits Re quested Visits Authorized [id number] Closed 01/01/2025 07/03/2026 1 1 NING ATTENDANT Reason for Visit * Reason Onset Date Comments Labs Only 12/30/2024 Encounter Details Date Type Department Care Team (Latest Contact Info) Description 12/30/2024 Clinical Communication Jeyson Brown [facility] in [place], [place] [address] [place] [address] Christy Abad R.N., C.C.T.C. [address] [place] [address] Labs Only Social History Tobacco Use Types Packs/Day Years Used Date Smoking Tobacco: Former Cigarettes Q uit: 2008 Passive Smoke Exposure: Never Smokeless Tobacco: Never Alcohol Use Standard Drinks/Week Comments Not Currently 0 (1 standard drink = 0.6 oz pur e alcohol) last 06/23/22 [facility] Utilities Answer Date Recorded In the past 12 months has e [employer], gas, oil, or water [employer] threatened to shut off services in your [...] week 02/04/2023 How often do you attend spiritism or restoration serv ices? Patient declined 02/04/2023 Do you belong to any clubs o r organizations such as spiritism groups, unions, fraternal or athletic groups, or [...] Answer Date Recorded PHQ-2 Score 6 11/23/2024 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 - 01/01/2025 2:50 PM CST SUBJECTIVE CHIEF COMPLAINT / REASON FOR CALL Labs Only Information Discussed I contacted Millicent and Killian. We discussed having a virtual visit with Dr. Shetty to discuss [place] and testosterone. We discussed meeting in person in February. We also discussed the reasoning for the tacrolimus dose decrease. We will do labs next in [place]. He will be trialing a new tube feeding formula. He will be starting radiation next week for 6 weeksto the head and neck. PLAN Disposition/Recommendation: as above Information/Education: patient/caller able to teach back Caller agreeable to plan of care: yes The following references were used: nursing clinical judgement and Dr. Shetty and Dr. Virk NING ATTENDANT NING ATTENDANT * Telephone Encounter - Christy Abad R.N., C.C.T.C. - 12/30/2024 12:10 PM CST Images from the original note were not included. Please review labs below. 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 Severe malnutrition. G tube placed in October. Did not tolerate tube feeds due to nausea. Following with the HEN team (appointment later this week). 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 Will undergo radiation starting 01/05. Current Medications & Recent Dose Changes: Tacrolimus 4 mg BID Labs: Recent Labs 12/26/24 1005 12/08/24 0935 11/27/24 0944 11/14/24 0503 11/13/24 0507 11/12/24 0537 TACROLIMUS 6.0 5.1 3.4 L 5.0 4.7 L 4.3 L Recent Labs 12/26/24 1006 12/26/24 1005 12/08/24 0935 11/27/24 0944 11/14/24 0503 11/13/24 1627 11/13/24 0507 11/12/24 0537 11/10/24 2010 11/10/24 0827 10/27/24 0755 10/20/24 0704 HGB -- 12.0 L 11.2 L 11.4 L 10.2 L -- 10.3 L 10.6 L < > 11.3 L < > 11.3 L HCT -- 37.2 L 34.9 L 35.9 L 31.4 L -- 32.0 L 32.3 L < > 34.5 L < > 36.0 L WBC -- 4.4 4.6 6.6 5.6 -- 7.5 5.1 < > 3.7 < > 4.9 NEUTROPHILS -- 2.55 2.76 4.68 -- -- -- -- -- -- < > 3.21 PLT -- 159 148 209 169 -- 158 141 < > 167 < > 266 NA -- 140 143 139 135 -- 135 136 < > 139 < > 140 KPLASMA -- 4.3 4.9 4.5 -- -- -- -- -- -- < > -- KSERUM -- -- -- -- 4.7 5.8 H 5.8 H 4.7 < > 4.3 -- 5.7 H MG -- -- -- -- 1.9 -- 2.1 2.4 H < > -- < > 2.3 GLUCOSE 131 H CANCELED CANCELED 193 H CANCELED 118 H 338 H -- 94 127 < > 256 H < > CANCELED 154 H HGBA1C -- -- -- -- -- -- -- -- -- -- -- 6.8 H BUN -- 28 H 23 22 29 H -- 29 H 27 H < > 30 H < > 36 H CREATININE -- 0.89 0.64 L 0.64 L 0.84 -- 0.79 0.81 < > 0.94 < > 1.06 EGFR -- >90 >90 >90 >90 -- >90 >90 < > >90 < > 78 ALKPHOS -- 66 66 64 66 -- 57 -- < > 63 < > 94 AST -- 22 20 17 14 -- 16 -- < > 10 < > 15 ALT -- 11 15 7 <7 L -- <7 L -- < > <7 L < > <7 L BILITOT -- 0.5 0.4 0.5 0.4 -- 0.5 -- < > 0.5 < > 0.5 BILIDIR -- 0.2 0.1 0.2 <0.2 -- <0.2 -- -- <0.2 < > <0.2 PT -- -- -- -- -- -- -- -- -- 11.4 -- 10.9 INR -- -- -- -- -- -- -- -- -- 1.0 -- 1.0 ALBUMIN -- 4.3 4.0 4.1 3.7 -- 3.3 L -- < > 3.7 < > 4.1 < > = values in this interval not displayed. Immunosuppression Goal Range: 5-6 Current Lab Frequency: every 2 weeks Please advise on any changes or recommendations. Thanks, Christy Abad REmerald., C.C.T.C. *All labs are now found in [facility] - Lab - Flowsheets. For further review of labs, please review thereor under Synopsis* NING ATTENDANT documented in this encounter Plan of Treatment Upcoming Encounters Date Type Department Care Team (Latest Contact Info) Description 02/03/2025 1:00 PM CDT Appointment Department of Radiation Oncology in [address] [address] Kiana Oliver M.D. [address] [place] [phone] 02/04/2025 1:00 PM CDT Appointment Department of Radiation Oncology in [address] [phone] Kiana Oliver M.D. [address] [place] [phone] 02/05/2025 12:45 PM CDT Appointment Department of Radiation Oncology in [address] [phone] Kiana Oliver M.D. [address] [place] [phone] 02/05/2025 1:00 PM CDT Appointment Department of Radiation Oncology in [address] [address] Kiana Oliver M.D. [address] [place] [phone] 02/06/2025 1:00 PM CDT Appointment Department of Radiation Oncology in [address] [address] Kiana Oliver M.D. [address] [place] [phone] 02/09/2025 1:00 PM CDT Appointment Department of Radiation Oncology in [address] [address] Kiana Oliver M.D. [address] [place] [phone] 02/10/2025 1:00 PM CDT Appointment Department of Radiation Oncology in [address] [address] Kiana Oliver M.D. [address] [place] [phone] 02/11/2025 1:00 PM CDT Appointment Department of Radiation Oncology in [address] [address] Kiana Oliver M.D. [address] [place] [phone] 02/12/2025 1:00 PM CDT Appointment Department of Radiation Oncology in [address] [address] Kiana Oliver M.D. [address] [place] [phone] 02/12/2025 1:15 PM CDT Appointment Department of Radiation Oncology in [address] [address] Kiana Oliver M.D. [address] [place] [phone] 02/13/2025 1:00 PM CDT Appointment Department of Radiation Oncology in [address] [address] Kiana Oliver M.D. [address] [place] [phone] 02/16/2025 7:15 AM CDT Ancillary Procedure Department of Ophthalmology in [address] [phone] Maida Tim O.D. [address] [place] [phone] 02/16/2025 8:00 AM CDT Comprehensive Visit Department of Ophthalmology in [address] [phone] Desi Rasmussen O.D. [address] [place] [phone] 02/23/2025 8:15 AM CDT Clinical Communication Virtual Review in [place], [place] [address] [place] [phone] 02/24/2025 9:40 AM CDT Office Visit Department of Dermatology in [address] [phone] Felipe Stewart M.D. [address] [place] [phone] 02/24/2025 10:00 AM CDT [facility] [address] [phone] Aide Welch P.Aaron.-C., M.S. [address] [place] [phone] 03/03/2025 9:00 AM CDT Telemedicine Department of Nutrition and Diabetes Education in [address] [phone] AlcarazKatelin abraham APRN C.N.P., D.N.P. [address] [place] [address] Mansi Ross M.S., RDN, LD [address] [place] [address] Scheduled Referrals Name Type Priority Associated Diagnoses Orde r Schedule Transplant Liver office visit (clinic) Outpatient Referral Routine Transplant Liver (HCC) Medication Therapy Billet Header Not Anticoagulant Expected: 01/05/2025 (Approximate), Expires: 03/31/2026 Transplant Liver office visit (clinic) Outpatient Referral Routine Transplant Liver (HCC) Medication Therapy Residential Not Anticoagulant Expected: 02/24/2025, Expires: 03/31/2026 documented as of this encounter Visit Diagnoses Diagnosis Transplant Liver (HCC)- Primary Medication Therapy Residential Not Anticoagulant documented in this encounter Additional Health Concerns Infection Onset Date Last Indicated Resolved Time Protective Environment 11/10/2023 11/10/2023 Assessment Noted Time PHQ-9 Depression Total Score: 19 025 12:23 PM CLEANING ATTENDANT documented as of this encounter Care Teams Mask Inspector Relationship Specialty Start Date End Date Kelly Mendez APRN, C.N.P., D.N.P. [address] [place] [phone] PCP - General Internal Medicine [facility] [place] [facility] lab Laboratory Medicine 02/26/23 documented as of this encounter
--- OUTSIDE RECORDS SUMMARY | 2025-02-02 22:46 | XMS_ITS | Encounter Summary ---
Author Organization [facility] Address [address] [place] [address] Care Team Providers Care Bi Architect Name Role Phone Kelly Mendez APRN C.N.P., D.N.P. 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 [address] [place] [address] Phone: tel: fax: [facility] Radiation Oncology at [place] [address] [place] [phone] Referral ID Status Reason Start Date Expiration Date V isits Requested Visits Authorized [id number] Authorized 12/22/2024 03/10/2026 15 30 Encounter Details Date Type Department Care Team (Late st Contact Info) Description 01/07/2025 12:56 PM STUDENT UNION CONSULTANT Hospital Encounter Department of Radiation Oncology in [address] [phone] Kiana Oliver M.D. [address] [place] [phone] Social History Tobacco Use Types Packs/Day Years Used Date Smoking Tobacco: Former Cigarettes Q uit: 2008 Passive Smoke Exposure: Never Smokeless Tobacco: Never Alcohol Use Standard Drinks/Week Comments Not Currently 0 (1 standard drink = 0.6 oz pur e alcohol) last 06/23/22 [facility] Utilities Answer Date Recorded In the past [...] week 02/04/2023 How often do you attend oriental orthodox or caodaism serv ices? Patient declined 02/04/2023 Do you belong to any clubs o r organizations such as oriental orthodox groups, unions, fraternal or athletic groups, or [...] Answer Date Recorded PHQ-2 Score 6 11/23/2024 [facility] - Occupational [...] AM CDT Legal Sex Male 9:11 PM STUDENT UNION CONSULTANT Gender Identity na 09/07/2021 10:32 AM CDT Sexual Orientation Choose not to disclose 2020 10:32 AM CDT documented as of this encounter Plan of Treatment Upcoming Encounters Date Type Department Care Team (Latest Contact Info) Description 02/03/2025 1:00 PM CDT Appointment Department of Radiation Oncology in [address] [address] Kiana Oliver M.D. [address] [place] [phone] 02/04/2025 1:00 PM CDT Appointment Department of Radiation Oncology in [address] [phone] Kiana Oliver M.D. [address] [place] [phone] 02/05/2025 12:45 PM CDT Appointment Department of Radiation Oncology in [address] [phone] Kiana Oliver M.D. [address] [place] [phone] 02/05/2025 1:00 PM CDT Appointment Department of Radiation Oncology in [address] [address] Kiana Oliver M.D. [address] [place] [phone] 02/06/2025 1:00 PM CDT Appointment Department of Radiation Oncology in [address] [address] Kiana Oliver M.D. [address] [place] [phone] 02/09/2025 1:00 PM CDT Appointment Department of Radiation Oncology in [place], [place] [address] [place] [phone] Kiana Oliver M.D. [address] [place] [phone] 02/10/2025 1:00 PM CDT Appointment Department of Radiation Oncology in [place], [place] [address] [place] [phone] Kiana Oliver M.D. [address] [place] [phone] 02/11/2025 1:00 PM CDT Appointment Department of Radiation Oncology in [address] [phone] Kiana Oliver M.D. [address] [place] [phone] 02/12/2025 1:00 PM CDT Appointment Department of Radiation Oncology in [address] [address] Kiana Oliver M.D. [address] [place] [phone] 02/12/2025 1:15 PM CDT Appointment Department of Radiation Oncology in [address] [address] Kiana Oliver M.D. [address] [place] [phone] 02/13/2025 1:00 PM CDT Appointment Department of Radiation Oncology in [address] [phone] Kiana Oliver M.D. [address] [place] [phone] 02/16/2025 7:15 AM CDT Ancillary Procedure Department of Ophthalmology in [place], [place] [address] [place] [phone] Maida Tim O.D. [address] [place] [phone] 02/16/2025 8:00 AM CDT Comprehensive Visit Department of Ophthalmology in [place], [place] [address] [place] [phone] Desi Rasmussen O.D. [address] [place] [phone] 02/23/2025 8:15 AM CDT Clinical Communication Virtual Review in [place], [place] [address] [place] [address] 02/24/2025 9:40 AM CDT Office Visit Department of Dermatology in [address] [phone] Felipe Stewart M.D. [address] [place] [phone] 02/24/2025 10:00 AM CDT Office Visit Jeyson milan [facility] in [place], [place] [address] [place] [phone] Aide Welch P.A.Willie., M.S. [address] [place] [phone] 03/03/2025 9:00 AM CDT Telemedicine Department of Nutrition and Diabetes Education in [address] [phone] Katelin Alcaraz, MARCUS, C.N.P., D.N.P. [address] [place] [phone] Mansi Ross M.S., RDN, LD [address] [place] [address] documented as of this encounter Visit Diagnoses Not on filedocumented in this encounter Additional Health Concerns Infection Onset Date Last Indicated Resolved Time Protective Environment 11/10/2023 11/10/2023 Assessment Noted Time PHQ-9 Depression Total Score: 19 025 12:23 PM STUDENT UNION CONSULTANT documented as of this encounter Care Teams Bi Architect Relationship Specialty Start Date End Date Kelly Mendez APRN, C.N.P., D.N.P. [address] [place] [phone] PCP - General Internal Medicine 12/05/23 [facility] [place] or [place] [facility] lab Laboratory Medicine 02/26/23 documented as of this encounter
--- OUTSIDE RECORDS SUMMARY | 2025-02-02 22:47 | XMS_ITS | Encounter Summary ---
Author Organization [facility] Address [address] [place] [address] Care Team Providers Care Surgical Supplies Sterilizer Name Role Phone Wally Daniel MD Primary Care Provider Unavailable Wally Daniel MD Unavailable Unavai lable No Ref-Primary, Physician Primary Care Provider Tennille Goddard APRN SENIOR ENVIRONMENTAL CONSULTANT Unavailable [phone] Tennille Goddard APRN SENIOR ENVIRONMENTAL CONSULTANT Unavailable [phone] Beatris Ty [facility] Unavailable [phone] Dov Alston [facility] Unavailable Unavailable Tennille Goddard APRN SENIOR ENVIRONMENTAL CONSULTANT Primary Care Provider + Dov Alston [facility] Unavailable Unavailable Dov Alston [facility] Unavailable Unavailable Encounter Details Date Type Department Care Team (Late st Contact Info) Description 11/02/2014 [facility] Advice [address] [place] [phone] Dov Alston, [facility] [address] [place] [address] Social History Tobacco Use Types Packs/Day Years [...] on file Legal Sex Male 3:[address] Gender Identity Not on file Sexual Orientation Not on file 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 as of this encounter Plan of Treatment Not on file documented as of this encounter Visit Diagnoses Not on filedocumented in this encounter Care Teams Surgical Supplies Sterilizer Relationship Specialty Start Date End Date Wally Daniel MD PCP - General 12/17/03 12/08/18 Wally Daniel MD PCP - Assigned PCP 10/16/10 12/14/18 No Ref-Primary, Physician PCP - General 12/09/18 08/17/19 Tennille Goddard APRN SENIOR ENVIRONMENTAL CONSULTANT [address] [place] [phone] PCP - Assigned PCP 12/15/18 01/21/19 Tennille Goddard APRN SENIOR ENVIRONMENTAL CONSULTANT [address] [place], [place] [phone] PCP - General Nurse Practitioner - Family 08/18/19 Tennille Goddard APRN SENIOR ENVIRONMENTAL CONSULTANT [address] [place], [place] [phone] Assigned PCP 12/15/18 01/07/22 Beatris Ty [facility] [address] [place] [address] Pharmacist Pharmacist 04/08/19 01/12/21 Dov Alston [facility] [address] [place] [address] Pharmacist Pharmacist 06/16/19 Dov Alston [facility] [address] [place] [address] Assigned MTM Pharmacist 04/15/22 08/04/22 [facility] [address] [place] [address] Assigned MTM Pharmacist 08/16/22 10/27/22 documented as of this encounter
--- OUTSIDE RECORDS SUMMARY | 2025-02-02 22:47 | XMS_ITS | Encounter Summary ---
Author Organization [facility] Address [address] [place] [address] Care Team Providers Care Hotshot Superintendent Name Role Phone Kelly Mendez APRN, C.N.Jose, D.N.P. Primary Car e Provider Encounter Details Date Type Department Care Team (Late st Contact Info) Description 12/15/2024 Clinical Communication Department of Dental Specialties in [place], [place] [address] [place] [address] Ni Waite D.D.S. [address] [place] [address] Social History Tobacco Use Types Packs/Day Years Used Date Smoking Tobacco: Former Cigarettes Q uit: 2008 Passive Smoke Exposure: Never Smokeless Tobacco: Never Alcohol Use Standard Drinks/Week Comments Not Currently 0 (1 standard drink = 0.6 oz pur e alcohol) last 06/23/[address] [facility] Utilities Answer Date Recorded In the [...] week 02/04/2023 How often do you attend scientologist or uatsdin serv ices? Patient declined 02/04/2023 Do you belong to any clubs o r organizations such as scientologist groups, unions, fraternal or athletic groups, or [...] AM CDT Legal Sex Male 9:11 PM OTOLARYNGOLOGY REP Gender Identity na 09/07/2021 10:32 AM CDT Sexual Orientation Choose not to disclose 2020 10:32 AM CDT documented as of this encounter Plan of Treatment Upcoming Encounters Date Type Department Care Team (Latest Contact Info) Description 02/03/2025 1:00 PM CDT Appointment Department of Radiation Oncology in [place], [place] [address] [place] [address] [place] [address] 02/04/2025 1:00 PM CDT Appointment Department of Radiation Oncology in [place], [place] [address] [place] [address] Kiana Oliver M.D. [address] [place] [phone] 02/05/2025 12:45 PM CDT Appointment Department of Radiation Oncology in [place], [place] [address] [place] [phone] Kiana Oliver M.D. [address] [place] [phone] 02/05/2025 1:00 PM CDT Appointment Department of Radiation Oncology in [place], [place] [address] [place] [address] Kiana Oliver M.D. [address] [place] [phone] 02/06/2025 1:00 PM CDT Appointment Department of Radiation Oncology in [place], [place] [address] [place] [phone] Kiana Oliver M.D. [address] [place] [phone] 02/09/2025 1:00 PM CDT Appointment Department of Radiation Oncology in [place], [place] [address] [place] [phone] Kiana Oliver M.D. [address] [place] [phone] 02/10/2025 1:00 PM CDT Appointment Department of Radiation Oncology in [address] [phone] Kiana Oliver M.D. [address] [place] [phone] 02/11/2025 1:00 PM CDT Appointment Department of Radiation Oncology in [place], [place] [address] [place] [phone] Kiana Oliver M.D. [address] [place] [phone] 02/12/2025 1:00 PM CDT Appointment Department of Radiation Oncology in [place], [place] [address] [place] [address] Kiana Oliver M.D. [address] [place] [phone] 02/12/2025 1:15 PM CDT Appointment Department of Radiation Oncology in [place], [place] [address] [place] [phone] Kiana Oliver M.D. [address] [place] [phone] 02/13/2025 1:00 PM CDT Appointment Department of Radiation Oncology in [place], [place] [address] [place] [address] Kiana Oliver M.D. [address] [place] [phone] 02/16/2025 7:15 AM CDT Ancillary Procedure Department of Ophthalmology in [place], [place] [address] [place] [phone] Maida Tim O.D. [address] [place] [phone] 02/16/2025 8:00 AM CDT Comprehensive Visit Department of Ophthalmology in [place], [place] [address] [place] [address] Desi Rasmussen O.D. [address] [place] [phone] 02/23/2025 8:15 AM CDT Clinical Communication Virtual Review in [place], [place] [address] [place] [address] 02/24/2025 9:40 AM CDT Office Visit Department of Dermatology in [place], [place] [address] [place] [phone] Felipe Stewart M.D. [address] [place] [phone] 02/24/2025 10:00 AM CDT Office Visit Jeyson milan [facility] in [place], [place] [address] [place] [phone] Aide Welch P.A.-C., M.S. [address] [place] [phone] 03/03/2025 9:00 AM CDT Telemedicine Department of Nutrition and Diabetes Education in [address] [phone] Katelin Alcaraz APRN, C.N.P., D.N.P. [address] [place] [phone] Mansi Ross M.S., RDN, LD [address] [place] [phone] documented as of this encounter Visit Diagnoses Not on filedocumented in this encounter Additional Health Concerns Infection Onset Date Last Indicated Resolved Time Protective Environment 11/10/2023 11/10/2023 Assessment Noted Time PHQ-9 Depression Total Score: 19 11/23/ 025 12:23 PM OTOLARYNGOLOGY REP documented as of this encounter Care Teams Hotshot Superintendent Relationship Specialty Start Date End Date Kelly Mendez APRN, C.N.P., D.N.P. [address] [place] [phone] PCP - General Internal Medicine 12/05/23 [place] [facility] [place] [facility] [place] lab Laboratory Medicine 02/26/23 documented as of this encounter
--- OUTSIDE RECORDS SUMMARY | 2025-02-02 22:47 | XMS_ITS | Encounter Summary ---
Author Organization [facility] Address [address] [place] [address] Care Team Providers Care Regional Director Of Finance Name Role Phone AndreaJuddKellylilia Buchanan APRN C.N.P., D.N.P. Primary Car e Provider Reason for Visit * Reason Onset Date Comments Appt Request 12/30/2024 Pacemaker schedu ling Encounter Details Date Type Department Care Team (Latest Contact Info) Description 12/30/2024 Clinical Communication Jeyson Brown [facility] in [place], [place] [address] [place] [phone] Aide Welch P.A.-C., M.S. [address] [place] [phone] Appt Request (Pacemaker scheduling) Social History Tobacco Use Types Packs/Day Years Used Date Smoking Tobacco: Former Cigarettes Q uit: 2008 Passive Smoke Exposure: Never Smokeless Tobacco: Never Alcohol Use Standard Drinks/Week Comments Not Currently 0 (1 standard drink = 0.6 oz pur e alcohol) last 06/23/22 [facility] Utilities Answer Date Recorded In the past 12 months has e electric, gas, oil, or water [employer] threatened to shut off services in your [...] week 02/04/2023 How often do you attend judaism or jainism serv ices? 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 [address] [place] [address] 02/04/2025 1:00 PM CDT Appointment Department of Radiation Oncology in [place], [place] [address] [place] [phone] Kiana Oliver M.D. [address] [place] [phone] 02/05/2025 12:45 PM CDT Appointment Department of Radiation Oncology in [address] [phone] Kiana Oliver M.D. [address] [place] [phone] 02/05/2025 1:00 PM CDT Appointment Department of Radiation Oncology in [address] [address] Kiana Oliver M.D. [address] [place] [phone] 02/06/2025 1:00 PM CDT Appointment Department of Radiation Oncology in [address] [phone] Kiana Oliver M.D. [address] [place] [phone] 02/09/2025 1:00 PM CDT Appointment Department of Radiation Oncology in [address] [phone] Kiana Oliver M.D. [address] [place] [phone] 02/10/2025 1:00 PM CDT Appointment Department of Radiation Oncology in [address] [address] Kiana Oliver M.D. [address] [place] [phone] 02/11/2025 1:00 PM CDT Appointment Department of Radiation Oncology in [place], [place] [address] [place] [phone] Kiana Oliver M.D. [address] [place] [phone] 02/12/2025 1:00 PM CDT Appointment Department of Radiation Oncology in [place], [place] [address] [place] [phone] Kiana Oliver M.D. [address] [place] [phone] 02/12/2025 1:15 PM CDT Appointment Department of Radiation Oncology in [place], [place] [address] [place] [phone] Kiana Oliver M.D. [address] [place] [phone] 02/13/2025 1:00 PM CDT Appointment Department of Radiation Oncology in [place], [place] [address] [place] [address] Kiana Oliver M.D. [address] [place] [phone] 02/16/2025 7:15 AM CDT Ancillary Procedure Department of Ophthalmology in [place], [place] [address] [place] [phone] Maida Tim O.D. [address] [place] [phone] 02/16/2025 8:00 AM CDT Comprehensive Visit Department of Ophthalmology in [place], [place] [address] [place] [phone] Desi Rasmussen O.D. [address] [place] [phone] 02/23/2025 8:15 AM CDT Clinical Communication Virtual Review in [place], [place] [address] [place] [phone] 02/24/2025 9:40 AM CDT Office Visit Department of Dermatology in [place], [place] [address] [place] [phone] Felipe Stewart M.D. [address] [place] [phone] 02/24/2025 10:00 AM CDT Office Visit Jeyson Kevin [facility] in [place], [place] [address] [place] [phone] Aide Welch P.A.-Ximena., M.S. [address] [place] [phone] 03/03/2025 9:00 AM CDT Telemedicine Department of Nutrition and Diabetes Education in [place], [place] [address] [place] [phone] Katelin Alcaraz APRN, C.N.P., D.N.P. [address] [place] [phone] Mansi Ross M.S., RDN, LD [address] [place] [phone] documented as of this encounter Visit Diagnoses Not on filedocumented in this encounter Additional Health Concerns Infection Onset Date Last Indicated Resolved Time Protective Environment 11/10/2023 11/10/2023 Assessment Noted Time PHQ-9 Depression Total Score: 19 01/05/2 025 12:23 PM SENIOR MOBILE DEVELOPER documented as of this encounter Care Teams Regional Director Of Finance Relationship Specialty Start Date End Date Kelly Mendez APRN, C.N.P., D.N.P. [address] [place] [phone] PCP - General Internal Medicine 12/05/23 [place] [facility] Lab [place] [facility] [place] lab Laboratory Medicine 02/26/23 documented as of this encounter
--- OUTSIDE RECORDS SUMMARY | 2025-02-02 22:47 | XMS_ITS | Encounter Summary ---
Author Organization [facility] Address [address] [place] [address] Care Team Providers Care Electrical Engineering Drafting Officer Name Role Phone AndreaKelly Chanel VELAZQUEZ, C.N.P., D.N.P. Primary Car e Provider Reason for Visit * Outpatient (Routine) - Closed Specialty Diagnoses / Procedures Referred By Juanito t Referred To Contact Endocrinology Diagnoses Dietary Counseling And Surveillance For Enteral Nutrition Katelin Alcaraz APRN, C.N.P., D.N.P. [address] [place] [phone] Phone: tel: fax: END HEN PROVIDER 01 KAJAL Referral ID Status Reason Start Date Expiration Date Visits Re quested Visits Authorized [id number] Closed 12/17/2024 06/18/2026 1 1 Encounter Details Date Type Department Care Team (Latest Contact Info) Description 01/01/2025 11:00 AM MOLDER SETTER Telemedicine Division of Endocrinology in [place], [place] [address] [place] [phone] Katelin Alcaraz APRN, C.N.P., D.N.P. [address] [place] [phone] Dietary Counseling And Surveillance For Enteral Nutrition Social History Tobacco Use Types Packs/Day Years Used Date Smoking Tobacco: Former Cigarettes Q uit: 2008 Passive Smoke Exposure: Never Smokeless Tobacco: Never Alcohol Use Standard Drinks/Week Comments Not Currently 0 (1 standard drink = 0.6 oz pur e alcohol) last 06/23/22 [facility] Utilities Answer Date Recorded In the past 12 months has th e electric, gas, oil, or water company [...] week 02/04/2023 How often do you attend mandaen or religion serv ices? Patient declined 02/04/2023 Do you belong to any clubs o r organizations such as mandaen groups, unions, fraternal or athletic groups, or [...] Answer Date Recorded PHQ-2 Score 6 11/23/2024 [facility] - Occupational Stress [...] AM CDT Legal Sex Male 9:11 PM MOLDER SETTER Gender Identity na 09/07/2021 10:32 AM CDT Sexual Orientation Choose not to disclose 2020 10:32 AM CDT documented as of this encounter Patient Instructions * Patient Instructions* Katelin Alcaraz APRN, C.N.P., D.N.P. - 01/01/2025 11:00 AM MOLDER SETTER Trial Peptamen 1.5, 4 oz given slowly Send our team a portal message in regards to how the trial went and if you would like to continue with Peptamen 1.5 through your G-tube. If this trial does not go well, you could consider an extension on your current tube to allow for small-bowel feeds but this can be discussed further with our team via video or telephone. Primary recommendation at this time is to leave feeding tube in place until you have completed radiation. Continue working on oral intake, increasing as tolerated. ER SETTER ER SETTER documented in this encounter Progress Notes * Katelin Alcaraz APRN C.N.P., D.N.P. - 01/01/2025 11:00 AM CST CHIEF COMPLAINT Return visit SUBJECTIVE Kevin Perry is a 64 y.o. adult whose medical history is nutritionally significant for type 2 diabetes diagnosed in 2012 and cirrhosis status post liver transplant November 10, 2023, type 2 diabetes, hypertension, squamous cell carcinoma of the face, previous alcohol use disorder, depression. Mr. Perry presents with his , Millicent Factors leading to malnutrition:He had been having difficulty with oral intake and weight maintenance prior to transplant and this unfortunately persisted over the last year since the time of transplant. During admission, patient underwent placement of nasogastric tube and ultimately placement of gastrostomy tube for management of malnutrition. He was monitored for refeeding and discharged home on enteral and oral nutrition. In addition, patient recently underwent Mohs procedure for removal of squamous cell carcinoma of the face and anticipates upcoming adjuvant radiation. Mr. Perry last met with our team on 12/17/2024. At that time, patient was not utilizing enteral nutrition and felt that it made him feel worse. We discussed keeping his tube in place given his poor nutrition status and seeing if he was able to improve with oral nutrition only. I did encourage him at that time to trial Peptamen 1.5 in small amounts through his tube. Today's visit was planned to discuss current nutritional status and whether or not he wanted to keep his enteral nutrition tube. Medical changes since last visit: Patient has met with Dermatology and Radiation Oncology in regards to squamous cell carcinoma foundon his left forehead. Plan at this time is to begin delivering radiation on 01/05/2025. Gastrointestinal symptoms the patient has been experiencing include: Nauseated after tube feeds. Occasional nausea but no vomiting. Typically having every day or every other day bowel movements. Urinary output/hydration: Adequate Current daily oral nutritional intake consists of: Yesterday 1180, day before 1635. Typically getting 6807-1021 per day Intake is similar to previous visit Tries for Ensure Plus (at least one per day) Typical daily oral hydration consists of: Water Enteral nutrition: Patient was on Backand in the hospital; patient trialed Peptamen 1.5 Energy level: Very poor, states he has not recognized much improvement though his has. Mood: Baseline Mental status: Baseline Refer to documentation by HEN dietitian and HEN nurse for further detail and specifics regarding current hydration, nutritional intake, weight trends, and feeding tube. The following portions of the patient's history were reviewed and updated as appropriate: allergies, current medications, family history, medical history, social history, surgical history, and problem list OBJECTIVE Weight history Wt Readings from Last 6 Encounters: 12/23/24 44.5 kg 12/17/24 45.6 kg 12/11/24 45.9 kg 11/14/24 45.2 kg 10/21/24 46.8 kg 10/20/24 47.2 kg Pertinent studies, labs, imaging reviewed Physical exam General: Alert, Oriented x 4 Limited due to nature video visit ASSESSMENT / PLAN It was a pleasure to meet with Mr. Perry and his this morning. He is a 64-year-old male who presents for home enteral nutrition follow-up. During our last visit, patient had not been utilizing enteral nutrition but he was encouraged to trial an alternative formula with plans to increase use of tube for nutritional support if he tolerated alternative formula. Additionally, he was encouraged to leave the tube in place at least until 12/25/2024, but ideally until after he completed his radiation treatment for his squamous cell carcinoma. The patients meets criteria for severe malnutrition based on the Global Leadership Initiative on Malnutrition criteria: BMI < 18.5 if < 70 years old and Reduced food intake, Any reduction for > 2 weeks. Nutritionally, the patient has remained relatively stable. He has been working on increasing oral intake and his has been tracking his calories which have been daily some where between 1100-1400per day with a couple days above that. He utilize a some solid food intake as well as ensure plus. Unfortunately, he has not yet trialed the Peptamen 1.5 through his tube. He has been resistant to trialing this with hopes that he would be able to increase his oral intake. Recommendation at this time is that he trial Peptamen prior to initiating radiation treatment which is currently planned for 01/05/2025. We discussed alternative options and ultimately, patient agreed to trialing Peptamen 1.5 t hrough his G-tube. He and his are going to message us to let us know if he tolerates this. If this is well tolerated, we will update his nutrition prescription to allow for nutritional support with Peptamen 1.5, while patient continues to increase his oral intake. I did discuss with the patient in his that he is at risk for developing further difficulty with oral intake while undergoingradiation further necessitating potential enteral nutrition needs. If Peptamen 1.5 is not tolerated well through his G-tube would then recommend patient consider a jejunal extension with trial of small-bowel feeds. The patient knows this would be our next recommendation and will consider this if G feeds do not go well. This can be discussed further via video or phone if G-tube feeds are not well tolerated. They are aware this would necessitate a change in how hegives his feeds and an additional procedure visit and visits with our nurse and dietitian teams. Primary recommendation is that patient leave his current feeding tube in place until he has completed radiation. Patient and his were both in agreement with this recommendation. The following recommendations were shared with the patient: Patient Instructions Trial Peptamen 1.5, 4 oz given slowly Send our team a portal message in regards to how the trial went and if you would like to continue with Peptamen 1.5 through your G-tube. If this trial does not go well, you could consider an extension on your current tube to allow for small-bowel feeds but this can be discussed further with our team via video or telephone. Primary recommendation at this time is to leave feeding tube in place until you have completed radiation. Continue working on oral intake, increasing as tolerated. Patient states general agreement with this plan. I shared my contact information. Patient will reach out if changes occur to plan of care. Total time spent 30 minutes, including [id number] and non [id number]-ju-[id number] care time. ER SETTER documented in this encounter Plan of Treatment Upcoming Encounters Date Type Department Care Team (Latest Contact Info) Description 02/03/2025 1:00 PM CDT Appointment Department of Radiation Oncology in [address] [phone] Kiana Oliver M.D. [address] [place] [phone] 02/04/2025 1:00 PM CDT Appointment Department of Radiation Oncology in [address] [phone] Kiana Oliver M.D. [address] [place] [phone] 02/05/2025 12:45 PM CDT Appointment Department of Radiation Oncology in [address] [phone] Kiana Oliver M.D. [address] [place] [phone] 02/05/2025 1:00 PM CDT Appointment Department of Radiation Oncology in [address] [phone] Kiana Oliver M.D. [address] [place] [phone] 02/06/2025 1:00 PM CDT Appointment Department of Radiation Oncology in [place], [place] [address] [place] [address] Kiana Oliver M.D. [address] [place] [phone] 02/09/2025 1:00 PM CDT Appointment Department of Radiation Oncology in [place], [place] [address] [place] [phone] Kiana Oliver M.D. [address] [place] [phone] 02/10/2025 1:00 PM CDT Appointment Department of Radiation Oncology in [place], [place] [address] [place] [address] Kiana Oliver M.D. [address] [place] [phone] 02/11/2025 1:00 PM CDT Appointment Department of Radiation Oncology in [place], [place] [address] [place] [phone] Kiana Oliver M.D. [address] [place] [phone] 02/12/2025 1:00 PM CDT Appointment Department of Radiation Oncology in [place], [place] [address] [place] [phone] Kiana Oliver M.D. [address] [place] [phone] 02/12/2025 1:15 PM CDT Appointment Department of Radiation Oncology in [place], [place] [address] [place] [phone] Kiana Oliver M.D. [address] [place] [phone] 02/13/2025 1:00 PM CDT Appointment Department of Radiation Oncology in [place], [place] [address] [place] [phone] Kiana Oliver M.D. [address] [place] [phone] 02/16/2025 7:15 AM CDT Ancillary Procedure Department of Ophthalmology in [address] [phone] Maida Tim O.D. [address] [place] [phone] 02/16/2025 8:00 AM CDT Comprehensive Visit Department of Ophthalmology in [place], [place] [address] [place] [phone] Desi Rasmussen O.D. [address] [place] [phone] 02/23/2025 8:15 AM CDT Clinical Communication Virtual Review in [place], [place] [address] [place] [address] 02/24/2025 9:40 AM CDT Office Visit Department of Dermatology in [address] [phone] Felipe Stewart M.D. [address] [place] [phone] 02/24/2025 10:00 AM CDT [facility] in [place], [place] [address] [place] [phone] Aide Welch P.A.-C., M.S. [address] [place] [address] 03/03/2025 9:00 AM CDT Telemedicine Department of Nutrition and Diabetes Education in [place], [place] [address] [place] [address] Katelin Alcaraz APRN, C.N.P., D.N.P. [address] [place] [phone] Mansi Ross M.S., RDN, LD [address] [place] [phone] documented as of this encounter Visit Diagnoses Diagnosis Dietary Counseling And Surveillance For Enteral Nutrition documented in this encounter Additional Health Concerns Infection Onset Date Last Indicated Resolved Time Protective Environment 11/10/2023 11/10/2023 Assessment Noted Time PHQ-9 Depression Total Score: 19 025 12:23 PM MOLDER SETTER documented as of this encounter Care Teams Electrical Engineering Drafting Officer Relationship Specialty Start Date End Date Klely Mendez APRN, C.N.P., D.N.P. [address] [place] [address] PCP - General Internal Medicine 12/05/23 [facility] [place] or [facility] lab Laboratory Medicine 02/26/23 documented as of this encounter
--- OUTSIDE RECORDS SUMMARY | 2025-02-02 22:47 | XMS_ITS | Encounter Summary ---
Author Organization [facility] Address [address] [place] [address] Care Team Providers Care Senior Bookkeeper Name Role Phone Wally Daniel MD Primary Care Provider Unavailable Wally Daniel MD Unavailable Unavai lable No Ref-Primary, Physician Primary Care Provider Tennille Goddard APRN SINGE MACHINE OPERATOR Unavailable [phone] Tennille Goddard APRN SINGE MACHINE OPERATOR Unavailable [phone] Beatris Ty [facility] Unavailable [phone] Dov Alston [facility] Unavailable Unavailable Tennille Goddard APRN SINGE MACHINE OPERATOR Primary Care Provider + Dov Alston [facility] Unavailable Unavailable Dov Alston [facility] Unavailable Unavailable Encounter Details Date Type Department Care Team (Late st Contact Info) Description 03/23/2014 [facility] Medical Advice [address] [address] Dov Alston [facility] [id number] [place] [phone] Social History Tobacco Use Types Packs/Day Years [...] on file Legal Sex Male 3: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 TAXATION ACCOUNTANT Gender Identity Not on file Sexual Orientation Not on file 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 as of this encounter Plan of Treatment Not on file documented as of this encounter Visit Diagnoses Not on filedocumented in this encounter Care Teams Senior Bookkeeper Relationship Specialty Start Date End Date Wally Daniel MD PCP - General 12/17/03 12/08/18 Wally Daniel MD PCP - Assigned PCP 10/16/10 12/14/18 No Ref-Primary, Physician PCP - General 12/09/18 08/17/19 Tennille Goddard APRN SINGE MACHINE OPERATOR [address] [facility] [place] [address] PCP - Assigned PCP 12/15/18 01/21/19 Tennille Goddard APRN SINGE MACHINE OPERATOR [address] [facility] [address] [address] [place] [place] [phone] PCP - General Nurse Practitioner - Family 08/18/19 Tennille Goddard APRN SINGE MACHINE OPERATOR [address] [facility] [place] [id number] Assigned PCP 12/15/18 01/07/22 Beatris Ty [facility] [address] [place] [address] Pharmacist Pharmacist 04/08/19 01/12/21 Dov Alston [facility] [address] [place] [address] Pharmacist Pharmacist 06/16/19 Dov Alston [facility] [address] [place] [address] Assigned MTM Pharmacist 04/15/22 08/04/22 Dov Alston [facility] [address] [place] [address] Assigned MTM Pharmacist 08/16/22 10/27/22 documented as of this encounter
--- OUTSIDE RECORDS SUMMARY | 2025-02-02 22:47 | XMS_ITS | Encounter Summary ---
Author Organization [facility] Address [address] [place] [address] Care Team Providers Care Test Developer Name Role Phone Wally Daniel MD Primary Care Provider Unavailable Wally Daniel MD Unavailable Unavai lable No Ref-Primary, Physician Primary Care Provider Tennille Goddard APRN [facility] Unavailable [phone] Tennille Goddard APRN [facility] Unavailable [phone] Beatris Ty RPH Unavailable [phone] Dov Alston RPH Unavailable Unavailable Tennille Goddard APRN [facility] Primary Care Provider + Kenny Alstonl RPH Unavailable Unavailable Kenny Alstonl RPH Unavailable Unavailable Reason for Referral * Consultation - Closed Specialty Diagnoses / Procedures Referred By Juanito ayala Referred To Contact Diagnoses Gross hematuria Wally Daniel MD [facility] [address] [place] [address] [address] [place] [address] Phone: tel: Referral ID Status Reason Start Date Expiration Date Visits Re quested Visits Authorized [id number] Closed 12/08/2014 06/06/2015 1 1 Comments Your provider has referred you to: [facility] Had renal ct with bladder shadowing Please be aware that coverage of these services is subject to the terms and limitations of your health insurance plan. Call member services at your health plan with any benefit or coverage questions. Please bring the following to your appointment: >> Any x-rays, CTs or MRIs which have been performed. Contact the facility where they were done to arrange for sheepskin pickler prior to your scheduled appointment. Any new CT, MRI or other procedures ordered by your specialist must be performed at a [facility] or coordinated by your clinic's referral office. 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 (Bhavani in referrals) K PAPERER * Telephone Encounter - Linda Brizuela RN - 12/04/2014 8:14 AM CST Postponed until Sunday when pt has appt Linda Brizuela RN, BSN K PAPERER documented in this encounter Plan of Treatment Scheduled Referrals Name Type Priority Associated Diagnoses Orde r Schedule UROLOGY ADULT REFERRAL Referral Routine Gross Hematuria Ordered: 12/08/2014 documented as of this encounter Visit Diagnoses Diagnosis Gross hematuria- Primary documented in this encounter Care Teams Test Developer Relationship Specialty Start Date End Date Wally Daniel MD PCP - General 12/17/03 12/08/18 Wally Daniel MD PCP - Assigned PCP 10/16/10 12/14/18 No Ref-Primary, Physician PCP - General 12/09/18 08/17/19 Tennille Goddard APRN [facility] [address] [place] [address] PCP - Assigned PCP 12/15/18 01/21/19 Tennille Goddard APRN [facility] [address] [place] [address] PCP - General Nurse Practitioner - Family 08/18/19 Tennille Goddard APRN [facility] [address] [place] [address] Assigned PCP 12/15/18 01/07/22 [address]ris [address] [facility] [address] [place] [address] Pharmacist Pharmacist 04/08/19 01/12/21 Dov Alston [facility] [address] [place] [address] Pharmacist Pharmacist 06/16/19 Dov Al[address] [facility] [address] [place] [address] Assigned MTM Pharmacist 04/15/22 08/04/22 Dov Al[address] [facility] [address] [place] [address] Assigned MTM Pharmacist 08/16/22 10/27/22 documented as of this encounter
--- OUTSIDE RECORDS SUMMARY | 2025-02-02 22:47 | XMS_ITS | Encounter Summary ---
Author Organization [facility] Address [address] [place] [address] Care Team Providers Care Service Shop Foreman Name Role Phone Kelly Mendez APRN C.N.P., D.N.P. Primary Car e Provider Encounter Details Date Type Department Care Team (Late st Contact Info) Description 12/19/2024 Ancillary Procedure Department of Dermatology Social History Tobacco Use Types Packs/Day Years Used Date Smoking Tobacco: Former Cigarettes Q uit: 2008 Passive Smoke Exposure: Never Smokeless Tobacco: Never Alcohol Use Standard Drinks/Week Comments Not Currently 0 (1 standard drink = 0.6 oz pur e alcohol) last 06/23/22 [facility] Utilities Answer Date Recorded In the past 12 months has [facility] [employer], gas, oil, or water [employer] threatened to shut off services in your [...] How often do you attend anglican or church serv ices? Patient declined 02/04/2023 Do you [...] Answer Date Recorded PHQ-2 Score 6 11/23/2024 [facility] Occupat ional Health - Occupational [...] AM CDT Legal Sex Male 9:11 PM CRA Gender Identity na 09/07/2021 10:32 AM CDT Sexual Orientation Choose not to disclose 2020 10:32 AM CDT documented as of this encounter Plan of Treatment Upcoming Encounters Date Type Department Care Team (Latest Contact Info) Description 02/03/2025 1:00 PM CDT Appointment Department of Radiation Oncology in [address] [phone] Kiana Oliver M.D. 200 [place] [address] 02/04/2025 1:00 PM CDT Appointment Department of Radiation Oncology in [place] [address] [place] [address] Kiana Oliver M.D. 200 [place] [address] 02/05/2025 12:45 PM CDT Appointment Department of Radiation Oncology in [place], [place] [address] [place] [phone] Kiana Oliver M.D. [address] [place] [phone] 02/05/2025 1:00 PM CDT Appointment Department of Radiation Oncology in [place], [place] [address] [place] [phone] Kiana Oliver M.D. [address] [place] [phone] 02/06/2025 1:00 PM CDT Appointment Department of Radiation Oncology in [address] [address] Kiana Oliver M.D. [address] [place] [phone] 02/09/2025 1:00 PM CDT Appointment Department of Radiation Oncology in [place], [place] [address] [place] [phone] Kiana Oliver M.D. [address] [place] [phone] 02/10/2025 1:00 PM CDT Appointment Department of Radiation Oncology in [place], [place] [address] [place] [phone] Kiana Oliver M.D. [address] [place] [phone] 02/11/2025 1:00 PM CDT Appointment Department of Radiation Oncology in [place], [place] [address] [place] [address] Kiana Oliver M.D. [address] [place] [phone] 02/12/2025 1:00 PM CDT Appointment Department of Radiation Oncology in [place], [place] [address] [place] [address] Kiana Oliver M.D. [address] [place] [phone] 02/12/2025 1:15 PM CDT Appointment Department of Radiation Oncology in [place], [place] [address] [place] [address] Kiana Oliver M.D. [address] [place] [phone] 02/13/2025 1:00 PM CDT Appointment Department of Radiation Oncology in [place], [place] [address] [place] [address] Kiana Oliver M.D. [address] [place] [phone] 02/16/2025 7:15 AM CDT Ancillary Procedure Department of Ophthalmology in [place], [place] [address] [place] [phone] Maida Tim O.D. [address] [place] [phone] 02/16/2025 8:00 AM CDT Comprehensive Visit Department of Ophthalmology in [place], [place] [address] [place] [phone] Desi Rasmussen O.D. [address] [place] [phone] 02/23/2025 8:15 AM CDT Clinical Communication Virtual Review in [place], [place] 200 [place] [address] 02/24/2025 9:40 AM CDT Office Visit Department of Dermatology in [place], [place] [address] [place] [phone] Felipe Stewart M.D. [address] [place] [phone] 02/24/2025 10:00 AM CDT [facility] in [place], [place] [address] [place] [phone] Aide Welch P.A.-C., M.S. [address] [place] [phone] 03/03/2025 9:00 AM CDT Telemedicine Department of Nutrition and Diabetes Education in [place], [place] [address] [place] [phone] Katelin Alcaraz, MARCUS, C.N.P., D.N.P. [address] [place] [phone] Mansi Ross M.S., RDN, LD [address] [place] [phone] documented as of this encounter Procedures Procedure Name Priority Date/Time Associated Diagnosis Comments DERMATOLOGY IMAGE EXAM Routine 12/19/2024 12:00 AM CRA documented in this encounter Results * [facility] Image Exam (12/19/2024 12:00 AM CRA) Narrative IIPR - 12/19/2024 2:58 PM CRA This order has been created and auto-finalized to support the import of images acquired without order. The clinical documentation to support these images can be found on the encounter that produced images. us Provider Not In System IMG NON RAD IMAGING PROCE DURES Final Result [facility]IP[facility] NA documented in this encounter Visit Diagnoses Not on filedocumented in this encounter Additional Health Concerns Infection Onset Date Last Indicated Resolved Time Protective Environment 11/10/2023 11/10/2023 Assessment Noted Time PHQ-9 Depression Total Score: 19 025 12:23 PM CRA documented as of this encounter Care Teams Service Shop Foreman Relationship Specialty Start Date End Date Kelly Mendez APRN, C.N.P., D.N.P. [address] [place] [phone] PCP - General Internal Medicine 12/05/23 Rhea [facility] [place] or Anabel [facility] lab Laboratory Medicine 02/26/23 documented as of this encounter
--- OUTSIDE RECORDS SUMMARY | 2025-02-02 22:47 | XMS_ITS | Encounter Summary ---
Author Organization [facility] Address [address] [place] [address] Care Team Providers Care Geospatial Information Technologist Name Role Phone Kelly Mendez APRN C.N.PKathrin, D.N.P. Primary Car e Provider Encounter Details Date Type Department Care Team (Late st Contact Info) Description 12/25/2024 Orders Only Department of Cardiovascular Medicine in [place], [place] [address] [place] [address] Chief Deputy Clerk/Bailiff, Aneudy Rubio Social History Tobacco Use Types Packs/Day Years Used Date Smoking Tobacco: Former Cigarettes Q uit: 2008 Passive Smoke Exposure: Never Smokeless Tobacco: Never Alcohol Use Standard Drinks/Week Comments Not Currently 0 (1 standard drink = 0.6 oz pur e alcohol) last 06/23/[address] [facility] Utilities Answer Date Recorded In the past 12 months has [employer], gas, oil, or water [employer] threatened to shut off services in your [...] week 02/04/2023 How often do you attend mormon or anabaptist serv ices? Patient declined 02/04/2023 Do you belong to any clubs o r organizations such as mormon groups, unions, fraternal or athletic groups, or [...] Answer Date Recorded PHQ-2 Score 6 11/23/2024 [facility] of Occupat ional Health - [...] AM CDT Legal Sex Male 9:11 PM SPIRAL WINDER Gender Identity na 09/07/2021 10:32 AM CDT Sexual Orientation Choose not to disclose 2020 10:32 AM CDT documented as of this encounter Plan of Treatment Upcoming Encounters Date Type Department Care Team (Latest Contact Info) Description 02/03/2025 1:00 PM CDT Appointment Department of Radiation Oncology in [place], [place] [address] [place] [address] Kiana Oliver M.D. 200 [place] [phone] 02/04/2025 1:00 PM CDT Appointment Department of Radiation Oncology in [place], [place] [address] [place] [address] Kiana Oliver M.D. 200 [place] [phone] 02/05/2025 12:45 PM CDT Appointment Department of Radiation Oncology in [address] [phone] Kiana Oliver M.D. [address] [place] [phone] 02/05/2025 1:00 PM CDT Appointment Department of Radiation Oncology in [address] [address] Kiana Oliver M.D. [address] [place] [phone] 02/06/2025 1:00 PM CDT Appointment Department of Radiation Oncology in [address] [phone] Kiana Oliver M.D. [address] [place] [phone] 02/09/2025 1:00 PM CDT Appointment Department of Radiation Oncology in [address] [address] Kiana Oliver M.D. [address] [place] [phone] 02/10/2025 1:00 PM CDT Appointment Department of Radiation Oncology in [address] [address] Kiana Oliver M.D. [address] [place] [phone] 02/11/2025 1:00 PM CDT Appointment Department of Radiation Oncology in [address] [address] Kiana Oliver M.D. [address] [place] [phone] 02/12/2025 1:00 PM CDT Appointment Department of Radiation Oncology in [place], [place] [address] [place] [address] Kiana Oliver M.D. [address] [place] [address] 02/12/2025 1:15 PM CDT Appointment Department of Radiation Oncology in [place], [place] [address] [place] [address] Kiana Oliver M.D. [address] [place] [address] 02/13/2025 1:00 PM CDT Appointment Department of Radiation Oncology in [place], [place] [address] [place] [address] Kiana Oliver M.D. [address] [place] [phone] 02/16/2025 7:15 AM CDT Ancillary Procedure Department of Ophthalmology in [place], [place] [address] [place] [phone] Maida Tim O.D. [address] [place] [phone] 02/16/2025 8:00 AM CDT Comprehensive Visit Department of Ophthalmology in [place], [place] [address] [place] [phone] Desi Rasmussen O.D. [address] [place] [phone] 02/23/2025 8:15 AM CDT Clinical Communication Virtual Review in [place], [place] 200 [place] [phone] 02/24/2025 9:40 AM CDT Office Visit Department of Dermatology in [address] [phone] Felipe Stewart M.D. [address] [place] [phone] 02/24/2025 10:00 AM CDT [facility] in [place], [place] [address] [place] [phone] Aide Welch P.A.-C., M.S. [address] [place] [phone] 03/03/2025 9:00 AM CDT Telemedicine Department of Nutrition and Diabetes Education in [address] [phone] Katelin Alcaraz APRN, C.N.P., D.N.P. [address] [place] [phone] Mansi Ross M.S., RDN, LD [address] [place] [phone] documented as of this encounter Visit Diagnoses Not on filedocumented in this encounter Additional Health Concerns Infection Onset Date Last Indicated Resolved Time Protective Environment 11/10/2023 11/10/2023 Assessment Noted Time PHQ-9 Depression Total Score: 19 025 12:23 PM SPIRAL WINDER documented as of this encounter Care Teams Geospatial Information Technologist Relationship Specialty Start Date End Date Kelly Mendez APRN, C.N.P., D.N.P. [address] [phone] (work) PCP - General Internal Medicine 12/05/23 Rhea [facility] Rhea Little [facility] lab Laboratory Medicine 02/26/23 documented as of this encounter
--- OUTSIDE RECORDS SUMMARY | 2025-02-02 22:47 | XMS_ITS | Encounter Summary ---
Author Organization [facility] Address [address] [place] [address] Care Team Providers Care Disease And Insect Control Boss Name Role Phone Wally Daniel MD Primary Care Provider Unavailable Wally Daniel MD Unavailable Unavai lable No Ref-Primary, Physician Primary Care Provider Tennille Goddard APRN MANAGER MED[facility] [employer]FF[employer]IRS Unavailable [phone] Tennille Goddard APRN MANAGER MEDICAL AFFAIRS Unavailable [phone] Beatris Ty [facility] Unavailable [phone] Dov Alston [facility] Unavailable Unavailable Tennille Goddard APRN MANAGER MEDICAL AFFAIRS Primary Care Provider + Dov Alston [facility] Unavailable Unavailable Dov Alston [facility] Unavailable Unavailable Encounter Details Date Type Department Care Team (Late st Contact Info) Description 06/18/2014 [facility] Medical Advice [address] [address] Dov Alston [facility] [id number] [place] [phone] Social History Tobacco Use Types Packs/Day Years [...] on file 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 Gender Identity Not on file Sexual Orientation Not on file 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 as of this encounter Plan of Treatment Not on file documented as of this encounter Visit Diagnoses Not on filedocumented in this encounter Care Teams Disease And Insect Control Boss Relationship Specialty Start Date End Date Wally Daniel MD PCP - General 12/17/03 12/08/18 Wally Daniel MD PCP - Assigned PCP 10/16/10 12/14/18 No Ref-Primary, Physician PCP - General 12/09/18 08/17/19 Tennille Goddard APRN MANAGER MEDICAL AFFAIRS [address] [place] [address] PCP - Assigned PCP 12/15/18 01/21/19 Tennille Goddard APRN MANAGER MEDICAL AFFAIRS [address] [facility] [place] [place] [phone] PCP - General Nurse Practitioner - Family 08/18/19 Tennille Goddard APRN [facility]NA[facility] MED[facility]FFAIRS [address] [facility] [place] [id number] Assigned PCP 12/15/18 01/07/22 Baetris Ty [facility] [address] [place] [address] Pharmacist Pharmacist 04/08/19 01/12/21 Dov Alston [facility] [address] [place] [address] Pharmacist Pharmacist 06/16/19 Dov Alston [facility] [address] [place] [address] Assigned MTM Pharmacist 04/15/22 08/04/22 Dov Alston [facility] [address] [place] [address] Assigned MTM Pharmacist 08/16/22 10/27/22 documented as of this encounter
--- OUTSIDE RECORDS SUMMARY | 2025-02-02 22:47 | XMS_ITS | Encounter Summary ---
Author Organization [facility] Address [address] [place] [address] Care Team Providers Care Supervisor Display Fabrication Name Role Phone MendezKelly Chanel VELAZQUEZ C.N.P., D.N.P. Primary Car e Provider Encounter Details Date Type Department Care Team (Latest Contact Info) Description 12/26/2024 9:50 AM STEAM SHOVEL OILER - 12/26/2024 11:59 PM [facility] Hospital Encounter Department of Laboratory Medicine in [place], [place] [address] [place] [address] Deann Zhu APRN, C.N.P., M.S. [address] [place] [address] Transplant Liver (HCC); Medication Therapy Sales Incentive Analyst Not Anticoagulant; Immunodeficiency Due To Drugs (HCC); Moderate Or Severe Use Disorder (Dependence) Alcohol Remission (HCC) Discharge Disposition: Home or Self Care Social History Tobacco Use Types Packs/Day Years Used Date Smoking Tobacco: Former Cigarettes Q uit: 2008 Passive Smoke Exposure: Never Smokeless Tobacco: Never Alcohol Use Standard Drinks/Week Comments Not Currently 0 (1 standard drink = 0.6 oz pur e alcohol) last 06/23/22 [facility] Utilities Answer Date Recorded In the past 12 months has [employer], gas, oil, or water [employer] threatened to shut off services in your [...] week 02/04/2023 How often do you attend catholic or jainism serv ices? Patient declined 02/04/2023 Do you belong to any clubs o r organizations such as catholic groups, unions, fraternal or athletic groups, or [...] Answer Date Recorded PHQ-2 Score 6 11/23/2024 [facility] - [...] AM CDT Legal Sex Male 9:11 PM STEAM SHOVEL OILER Gender Identity na 09/07/2021 10:32 AM CDT Sexual Orientation Choose not to disclose 2020 10:32 AM CDT documented as of this encounter Medications at Time of Discharge [...] diabetes control. 1 each 12/12/2023 11:05 AM STEAM SHOVEL OILER 12/11/2023 calcium citrate-vitamin D3 (Citracal + D3) 315 mg-5 mcg (200 Unit) per tablet Take 1 tablet by mouth 2 (two) times a day with meals. 200 tablet 3 10/20/2024 10/20/20 25 famotidine (Pepcid) 20 mg tablet Take 1 tablet (20 mg total) by mouth 2 (two) times a day as needed for heartburn. 60 tablet 1 11/14/2024 12:18 PM STEAM SHOVEL OILER 11/14/2024 fluoride, sodium, (PreviDent) 1.1 % gel [...] daily. 90 tablet 3 10/29/2024 11:46 AM STEAM SHOVEL OILER 06/05/2024 gabapentin (NEURONTIN) 300 mg capsule Take 2 capsules (600 mg total) by mouth at bedtime. 04/07/2024 HYDROcodone-acetami nophen (Ida) 7.5-325 mg per tabletIndications:C hronic Pain/Nonacute Pain [...] 911. 15 mL 2 11/14/2024 12:18 PM STEAM SHOVEL OILER 11/14/2024 ondansetron ODT (Zofran-ODT) 4 mg disintegrating tablet Dissolve 1 tablet (4 mg total) in the mouth every 8 (eight) hours as needed for nausea or vomiting. 30 tablet 3 11/26/2024 3:29 PM STEAM SHOVEL OILER 06/05/2024 pen needle, diabetic (BD Ultra-Fine Short Pen Needle) 31 gauge x 5/16 needle Use 3 times a day 300 each 1 11/14/2024 12:18 PM STEAM SHOVEL OILER 11/14/2024 rOPINIRole (Requip) 0.25 mg tabletIndications:R estless Leg Syndrome Take 2 tablets (0.5 mg total) by mouth at bedtime as needed (RLS). 30 tablet 11/26/2024 3:29 PM STEAM SHOVEL OILER 11/13/2024 rosuvastatin (Crestor) 5 mg tablet Take 1 tablet (5 mg total) by mouth daily. 90 tablet 3 12/29/2024 1:25 PM STEAM SHOVEL OILER 06/05/2024 sennosides-docusate sodium (Stool Softener-Stimulant Laxat) 8.6-50 mg per tabletIndications:T ransplant Liver (HCC),Medication Therapy Alf Not Anticoagulant,Drug Induced Constipation Take 1 tablet by mouth 2 (two) times a day. 100 tablet 02/22/2024 5:09 PM CDT 02/22/2024 blood-glucose sensor (FreeStyle Apryl 3 Sensor) deviceIndications:D iabetes Mellitus Type 2 Hyperglycemia (HCC) 1 each every 14 (fourteen) days. 6 each 3 11/26/2024 3:29 PM STEAM SHOVEL OILER 09/04/2024 01/29/20 25 insulin glargine 100 unit/mL [...] directed. 15 mL 11 11/25/2024 01/29/20 25 tacrolimus (Prograf) 1 mg capsuleIndications: Transplant Liver (HCC),Medication Therapy Sales Incentive Analyst Not Anticoagulant Take 4 capsules (4 mg total) by mouth 2 (two) times a day. 720 capsule 3 12/01/2024 01/01/20 25 documented as of this encounter Plan of Treatment Upcoming Encounters Date Type Department Care Team (Latest Contact Info) Description 02/03/2025 1:00 PM CDT Appointment Department of Radiation Oncology in [address] [phone] Kiana Oliver M.D. [address] [place] [phone] 02/04/2025 1:00 PM CDT Appointment Department of Radiation Oncology in [address] [phone] Kiana Oliver M.D. [address] [place] [address] 02/05/2025 12:45 PM CDT Appointment Department of Radiation Oncology in [address] [address] Kiana Oliver M.D. [address] [place] [address] 02/05/2025 1:00 PM CDT Appointment Department of Radiation Oncology in [address] [address] Kiana Oliver M.D. [address] [place] [phone] 02/06/2025 1:00 PM CDT Appointment Department of Radiation Oncology in [place], [place] [address] [place] [phone] Kiana Oliver M.D. [address] [place] [address] 02/09/2025 1:00 PM CDT Appointment Department of Radiation Oncology in [address] [phone] Kiana Oliver M.D. [address] [place] [phone] 02/10/2025 1:00 PM CDT Appointment Department of Radiation Oncology in [address] [phone] Kiana Oliver M.D. [address] [place] [phone] 02/11/2025 1:00 PM CDT Appointment Department of Radiation Oncology in [address] [address] Kiana Oliver M.D. [address] [place] [phone] 02/12/2025 1:00 PM CDT Appointment Department of Radiation Oncology in [address] [address] Kiana Oliver M.D. [address] [place] [phone] 02/12/2025 1:15 PM CDT Appointment Department of Radiation Oncology in [place], [place] [address] [place] [phone] Kiana Oliver M.D. [address] [place] [phone] 02/13/2025 1:00 PM CDT Appointment Department of Radiation Oncology in [place], [place] [address] [place] [phone] Kiana Oliver M.D. [address] [place] [phone] 02/16/2025 7:15 AM CDT Ancillary Procedure Department of Ophthalmology in [place], [place] [address] [place] [phone] Maida Tim O.D. [address] [place] [phone] 02/16/2025 8:00 AM CDT Comprehensive Visit Department of Ophthalmology in [place], [place] [address] [place] [phone] Desi Rasmussen O.D. [address] [place] [phone] 02/23/2025 8:15 AM CDT Clinical Communication Virtual Review in [place], [place] [address] [place] [address] 02/24/2025 9:40 AM CDT Office Visit Department of Dermatology in [place], [place] [address] [place] [phone] Felipe Stewart M.D. [address] [place] [phone] 02/24/2025 10:00 AM CDT Office Visit Jeyson milan [facility] for Transplantation and Clinical Regeneration in [place], [place] [address] [place] [phone] Aide Welch P.A.-C., M.S. [address] [place] [phone] 03/03/2025 9:00 AM CDT Telemedicine Department of Nutrition and Diabetes Education in [place], [place] [address] [place] [phone] Katelin Alcaraz, MARCUS, C.N.P., D.N.P. [address] [place] [phone] Mansi Ross M.S., RDN, LD [address] [place] [phone] documented as of this encounter Procedures Procedure Name Priority Date/Time Associated Diagnosis Comments GLUCOSE, FASTING, S/P Routine 12/26/2024 10:06 AM STEAM SHOVEL OILER Transplant Liver (HCC) Medication Therapy Alf Not Anticoagulant 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 Remission (HCC) TACROLIMUS LEVEL, B Routine 12/26/2024 1 0:05 AM STEAM SHOVEL OILER Transplant Liver (HCC) Medication Therapy Alf Not Anticoagulant 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 Remission (HCC) CBC WITH DIFFERENTIAL, B Routine 12/26/2024 10:05 AM STEAM SHOVEL OILER Transplant Liver (HCC) Medication Therapy Alf Not Anticoagulant 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 Remission (HCC) BILIRUBIN DIRECT, S/P Routine 12/26/2024 10:05 AM STEAM SHOVEL OILER Transplant Liver (HCC) Medication Therapy Alf Not Anticoagulant 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 Remission (HCC) COMPREHENSIVE METABOLIC PANEL, S/P Routine 12/26/2024 10:05 AM STEAM SHOVEL OILER Transplant Liver (HCC) Medication Therapy Sales Incentive Analyst Not Anticoagulant 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 Remission (HCC) documented in this encounter Results * (ABNORMAL) Glucose, Fasting (12/26/2024 10:06 AM STEAM SHOVEL OILER) Glucose, P 131(H) 70 - 100 mg/dL 12/26/2024 1:58 PM STEAM SHOVEL OILER OWAT Last Intake 0 hr 12/26/2024 1:04 PM STEAM SHOVEL OILER OWAT Blood (Blood, Venous) 12/26/2024 10:06 AM STEAM SHOVEL OILER 12/26/2024 1:03 PM STEAM SHOVEL OILER us Deann Zhu APRN, C.N.P., M.S. LAB BLOOD NON ADD-ON Final Result Performing Organization Address City/[facility]/ZIP Co de Phone Number [facility] [address] [place] [address], [place] OWAT [facility] in [place] [address], [place] [address] * Bilirubin, Direct (12/26/2024 10:05 AM STEAM SHOVEL OILER) Bilirubin, Direct, P 0.2 0.0 - 0.3 mg/dL 12/26/2024 1:55 PM STEAM SHOVEL OILER OWAT Blood (Blood, Venous) 12/26/2024 10:05 AM STEAM SHOVEL OILER 12/26/2024 1:09 PM STEAM SHOVEL OILER us Deann Zhu APRN, C.N.P., M.S. LAB BLOOD ADD -ON Final Result Performing Organization Address City/[facility]/ZIP Co de Phone Number [facility] [address] [place] [address], [place] OWAT [facility] in [place] [address] [place] [address] * (ABNORMAL) CBC with Differential, Blood (12/26/2024 10:05 AM STEAM SHOVEL OILER) Hemoglobin 12.0(L) 13.2 - 16.6 g/dL 12/26/2024 10:28 AM STEAM SHOVEL OILER FB60 Hematocrit 37.2(L) 38.3 - 48.6 % 12/26/2024 10:28 AM STEAM SHOVEL OILER FB60 Erythrocytes 4.33(L) 4.35 - 5.65 x10(12)/L 12/26/2024 10:28 AM STEAM SHOVEL OILER FB60 MCV 85.9 78.2 - 97.9 fL 12/26/2024 10:28 AM STEAM SHOVEL OILER FB60 RBC Distrib Width 15.2(H) 11.8 - 14.5 % 12/26/2024 10:28 AM STEAM SHOVEL OILER FB60 Platelet Count 159 135 - 317 x10(9)/L 12/26/2024 10:28 AM STEAM SHOVEL OILER FB60 Leukocytes 4.4 3.4 - 9.6 x10(9)/L 12/26/2024 10:28 AM STEAM SHOVEL OILER FB60 Neutrophils 2.55 1.56 - 6.45 x10(9)/L 12/26/2024 10:28 AM STEAM SHOVEL OILER FB60 Lymphocytes 1.24 0.95 - 3.07 x10(9)/L 12/26/2024 10:28 AM STEAM SHOVEL OILER FB60 Monocytes 0.48 0.26 - 0.81 x10(9)/L 12/26/2024 10:28 AM STEAM SHOVEL OILER FB60 Eosinophils 0.10 0.03 - 0.48 x10(9)/L 12/26/2024 10:28 AM STEAM SHOVEL OILER FB60 Basophils <0.04 0.01 - 0.08 x10(9)/L 12/26/2024 10:28 AM STEAM SHOVEL OILER FB60 Blood (Blood, Venous) 12/26/2024 10:05 AM STEAM SHOVEL OILER 12/26/2024 10:06 AM STEAM SHOVEL OILER us Deann Zhu APRN, C.N.P., M.S. LAB BLOOD ADD -ON Final Result [facility] [address] [place] [address], [facility] FB60 [facility] in [place] [address] [place] [address] * Tacrolimus, Trough (12/26/2024 10:05 AM STEAM SHOVEL OILER) Pathologist [facility] Tacrolimus, Trough 6.0 5.0-15.0 (Trough) ng/mL 12/27/2024 11:25 AM STEAM SHOVEL OILER [facility] Comment: ----ADDITIONAL INFORMATION---- Target steady-state trough concentrations vary depending on the type of transplant, concomitant immunosuppression, clinical/institutional protocols, and time post-transplant. Results should be interpreted in conjunction with this clinical information and any physical signs/symptoms of rejection/toxicity. Testing performed by Liquid Chromatography-Tandem Mass Spectrometry (LC-MS/MS). This test was developed and its performance characteristics determined by [facility] in a manner consistent with CLIA requirements. This test has not been cleared or approved by the U.S. Food and Drug Administration. Blood (Blood, Venous) 12/26/2024 10:05 AM STEAM SHOVEL OILER 12/27/2024 7:25 AM STEAM SHOVEL OILER us Deann Zhu APRN, C.N.P., M.S. LAB BLOOD NON ADD-ON Final Result [facility] [address] [place] [address] [facility] [address] [place] [address] [place] [address] * (ABNORMAL) Comprehensive Metabolic Panel (12/26/2024 10:05 AM STEAM SHOVEL OILER) Pathologist [facility] Potassium, P 4.3 3.6 - 5.2 mmol/L 12/26/2024 1:55 PM STEAM SHOVEL OILER OWAT Sodium, P 140 135 - 145 mmol/L 12/26/2024 1:55 PM STEAM SHOVEL OILER OWAT Chloride, P 103 98 - 107 mmol/L 12/26/2024 1:55 PM STEAM SHOVEL OILER OWAT Bicarbonate, P 28 22 - 29 mmol/L 12/26/2024 1:55 PM STEAM SHOVEL OILER OWAT Anion Gap, P 9 7 - 15 12/26/2024 1:55 PM STEAM SHOVEL OILER OWAT BUN (Blood Urea Nitrogen), P 28(H) 8 - 24 mg/dL 12/26/2024 1:55 PM STEAM SHOVEL OILER OWAT Creatinine 0.89 0.74 - 1.35 mg/dL 12/26/2024 1:55 PM STEAM SHOVEL OILER OWAT Estimated GFR (eGFR) >90 >=60 mL/min/BS A 12/26/2024 1:55 PM STEAM SHOVEL OILER OWAT Comment: Estimated GFR calculated using the 2020 CKD_EPI creatinine equation. Calcium, Total, P 9.2 8.8 - 10.2 mg/dL 12/26/2024 1:55 PM STEAM SHOVEL OILER OWAT Glucose, P CANCELED mg/dL 12/26/2024 1:09 PM STEAM SHOVEL OILER OWAT Comment: Duplicate test request. Result canceled by the ancillary. Protein, Total, P 7.0 6.3 - 7.9 g/dL 12/26/2024 1:55 PM STEAM SHOVEL OILER OWAT Albumin, P 4.3 3.5 - 5.0 g/dL 12/26/2024 1:55 PM STEAM SHOVEL OILER OWAT Aspartate Aminotransferase (AST), P 22 8 - 48 U/L 12/26/2024 1:55 PM STEAM SHOVEL OILER OWAT Alkaline Phosphatase, P 66 40 - 129 U/L 12/26/2024 1:55 PM STEAM SHOVEL OILER OWAT Alanine Aminotransferase (ALT), P 11 7 - 55 U/L 12/26/2024 1:55 PM STEAM SHOVEL OILER OWAT Bilirubin, Total, P 0.5 0.0 - 1.2 mg/dL 12/26/2024 1:55 PM STEAM SHOVEL OILER OWAT Blood (Blood, Venous) 12/26/2024 10:05 AM STEAM SHOVEL OILER 12/26/2024 1:09 PM STEAM SHOVEL OILER us Deann Zhu APRN, C.N.P., M.S. LAB BLOOD ADD -ON Final Result [facility] [address] [place] [address], [facility] OWAT [facility] in [place] [address] [place] [address] documented in this encounter Visit Diagnoses Diagnosis Transplant Liver (HCC) Medication Therapy Sales Incentive Analyst Not Anticoagulant 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 Remission (HCC) documented in this encounter Additional Health Concerns Infection Onset Date Last Indicated Resolved Time Protective Environment 11/10/2023 11/10/2023 Assessment Noted Time PHQ-9 Depression Total Score: 19 025 12:23 PM STEAM SHOVEL OILER documented as of this encounter Care Teams Supervisor Display Fabrication Relationship Specialty Start Date End Date Kelly Mendez APRN, C.N.P., D.N.P. [address] [place] [address] PCP - General Internal Medicine 12/05/23 Rhea [facility] [place] or Anabel [facility] lab Laboratory Medicine 02/26/23 documented as of this encounter
--- OUTSIDE RECORDS SUMMARY | 2025-02-02 22:47 | XMS_ITS | Encounter Summary ---
Author Organization [facility] Address [address] [place] [address] Care Team Providers Care Set Key Driver Name Role Phone Wally Daniel MD Primary Care Provider Unavailable Wally Daniel MD Unavailable Unavai lable No Ref-Primary, Physician Primary Care Provider Tennille Goddard CHARGE ATTENDANT AUTOMATION TESTER Unavailable [phone] Tennille Goddard APRN AUTOMATION TESTER Unavailable [phone] Beatris Ty [facility] Unavailable [phone] Dov Alston [facility] Unavailable Unavailable Tennille Goddard APRN AUTOMATION TESTER Primary Care Provider + Dov Alston RP Unavailable Unavailable Dov Alston RP Unavailable Unavailable Encounter Details Date Type Department Care Team (Late st Contact Info) Description 06/06/2014 [facility] Medical Advice [address] [address] Radha Newsome RN Social History Tobacco Use Types Packs/Day Years [...] on file 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 Gender Identity Not on file Sexual Orientation Not on file 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 as of this encounter Plan of Treatment Not on file documented as of this encounter Visit Diagnoses Not on filedocumented in this encounter Care Teams Set Key Driver Relationship Specialty Start Date End Date Wally Daniel MD PCP - General 12/17/03 12/08/18 Wally Daniel MD PCP - Assigned PCP 10/16/10 12/14/18 No Ref-Primary, Physician PCP - General 12/09/18 08/17/19 Tennille Goddard APRN AUTOMATION TESTER [address] [place] [address] PCP - Assigned PCP 12/15/18 01/21/19 Tennille Goddard APRN AUTOMATION TESTER [address] [place] [address] PCP - General Nurse Practitioner - Family 08/18/19 Tennille Goddard APRN AUTOMATION TESTER [address] [place] [address] Assigned PCP 12/15/18 01/07/22 Beatris Ty [facility] [address] [place] [address] Pharmacist Pharmacist 04/08/19 01/12/21 Dov Alston [facility] [address] [place] [address] Pharmacist Pharmacist 06/16/19 Dov Alston [facility] [address] [place] [address] Assigned MTM Pharmacist 04/15/22 08/04/22 Dov Alston [facility] [address] [place] [address] Assigned MTM Pharmacist 08/16/22 10/27/22 documented as of this encounter
--- OUTSIDE RECORDS SUMMARY | 2025-02-02 22:47 | XMS_ITS | Clinical Summary ---
Author Organization [facility] Address [address] [place] [address] Care Team Providers Care Flange Turner Name Role Phone Dov Alston [facility] Unavailable Unavailable Tennille Goddard APRN INFORMATION SERVICES TECH Primary Care Provider + Allergies Active Allergy Reactions Criticality Noted Date Comments Duloxetine Other (See Comments) 05/29/2017 [place] like he was in a walking coma ! Metformin Fatigue 04/25/2021 Also feels like he needs to vomit. Medications fish oil-omega-3 fatty acids (FISH OIL) 1000 MG capsule Take 1 g by mouth daily. 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, without long-term current use of insulin (H) 1 each 2 times daily 1 kit 05/24/2020 Active TechLite AST Lancets MISCIndications :Type 2 diabetes mellitus with stage 1 chronic kidney disease, without long-term current use of insulin (H) 1 each 2 times daily 100 each 11 05/24/2020 Active Magnesium Oxide 500 MG TABS Take 1 tablet by mouth daily Active ASPIRIN LOW DOSE 81 MG EC tabletIndicatio ns:Type 2 diabetes mellitus with stage 1 chronic kidney disease, without long-term current use of insulin (H) TAKE 1 TABLET DAILY 90 tablet 3 02/04/2021 Active amLODIPine (NORVASC) 5 MG tabletIndicatio ns:Hypertension goal BP (blood pressure) < 140/90 TAKE 1 TABLET DAILY 90 tablet 3 02/04/2021 Active benazepril (LOTENSIN) 20 MG tabletIndicatio ns:Hypertension goal BP (blood pressure) < 140/90 TAKE 1 TABLET DAILY 90 tablet 3 02/04/2021 Active rOPINIRole (REQUIP) 0.25 MG tabletIndicatio ns:Restless legs syndrome (RLS) Take 1-3 tablets (0.25-0.75 mg) by mouth At Bedtime 90 tablet 5 02/03/2021 Active blood glucose (GLUCOCARD VITAL TEST) test stripIndication s:Type 2 diabetes mellitus with stage 1 chronic kidney disease, without long-term current use of insulin (H) Use to test blood sugar 2 times daily or as directed. 200 strip 11 02/04/2021 Active Cholecalciferol (VITAMIN D3) 50 MCG (1999) TABSIndications :Vitamin D deficiency TAKE 2 TABLETS DAILY (NEED OFFICE VISIT FOR FURTHER REFILLS) 180 tablet 05/12/2021 Active atorvastatin (LIPITOR) 10 MG tabletIndicatio ns:Hyperlipidem ia LDL goal <100 TAKE 1 TABLET DAILY 90 tablet 05/12/2021 Active glipiZIDE (GLUCOTROL) 5 MG tabletIndicatio ns:Type 2 diabetes mellitus with stage 1 chronic kidney disease, without long-term current use of insulin (H) Take 1 tablet (5 mg) by mouth 2 times daily (before meals) 180 tablet 1 06/28/2021 Active Active Problems Patient Care Coordination No te Formatting of this note migh t be different from the original. CONTROLLED DM WITH KNEE OSTEOARTHRITIS, AND RLS Problem Noted Date Diagnosed Date Restless legs syndrome (RLS) 05/31/2016 Other chronic pain 12/27/2015 Overview (07/10/2016): IMPROVED POST SURGERY, NO CURRENT MEDS Patient is followed by JACKIE DAWSON for ongoing prescription of pain medication. All refills should be approved by this provider, or covering partner. Medication(s): . Maximum quantity per month: NONE CURRENT Clinic visit frequency required: Q 4 months Controlled substance agreement: Encounter-Level CSA - 12/27/15: Controlled Substance Agreement - Scan on 01/04/2016 2:01 PM : [facility] [place] CONTROLLED SUBSTANCE AGREEMENT (below) Pain Clinic evaluation in the past: No DIRE Total Score(s): No flowsheet data found. Last [facility] website verification: none-NO CURRENT MEDS [email or web address] Type 2 diabetes mellitus with diabetic mononeuro ayana 09/17/2015 Microalbuminuria due to type 2 diabetes mellitus 09/15/2015 Overweight 09/15/2015 Osteoarthrosis of knee 04/17/2014 Hypertension goal BP (blood pressure) < 140/90 0 02/05/2012 Vitamin D deficiency 02/19/2011 Elevated C-reactive protein (CRP) 02/19/2011 Type 2 diabetes mellitus wit h stage 1 chronic kidney disease 12/13/2010 Hyperlipidemia LDL goal <100 12/05/2010 Impotence of organic origin 11/24/2005 Gout 12/17/2003 Overview (08/19/2015): Problem list name updated by automated process. Provider to review Resolved Problems Problem Noted Date Diagnosed Date Resolved Date Knee pain 07/11/2011 08/23/2011 Elevated LFTs 02/19/2011 11/27/2011 Overview (08/19/2012): (Problem list name updated by automated process. Provider to review and confirm.) Type 1 diabetes, HbA1c goal < 7% 12/05/2010 12/13/2010 Diverticulitis of colon 12/17/200311/20 Overview (07/10/2016): NOT ACTIVE Family History Medical History Relation Comments Diabetes Father Relation Status Comments Brother Alive x1 Daughter Alive Inés Father Alive Maternal Grandfather Maternal Grandmother Mother Alive Paternal Grandfather Paternal Grandmother Son Alive Max Social History Tobacco Use Types Packs/Day Years Used Date Smoking Tobacco: Former Cigarettes 1.5 10 0 06/07/2000 - 06/07/2010 Smokeless Tobacco: Former Comments:1 pk x 15 yrs Alcohol Use Standard Drinks/Week Comments Yes 0 (1 standard drink = 0.6 oz pur e alcohol) twice a wk PHQ-2 Answer Date Recorded PHQ-2 Score 0 01/07/2019 Adolescent Education Answer Date Record ed Getting School Help Needed Not on file 08/11 Sex and Gender Information Value Date Recorded Sex Assigned at Not on file Legal Sex Male 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 Gender Identity Not on file Sexual Orientation Not on file 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 Last Filed Vital Signs Vital Sign Reading Time Taken Comments Blood Pressure 112/70 04/25/2021 12:29 PM CDT Pulse 105 04/25/2021 12:29 PM CDT Temperature 37.1 C (98.8 F) 01/07/2019 6:06 PM TECHNOLOGY SPECIALIST Respiratory Rate 16 01/07/2019 6:06 PM TECHNOLOGY SPECIALIST Oxygen Saturation 95% 04/25/2021 12:29 PM CDT Inhaled Oxygen Concentration - - Weight 61.3 kg (135 lb 3.2 oz) 04/25/2021 12:29 PM CDT Height 167.6 cm (5' 6) 01/07/2019 6:06 PM TECHNOLOGY SPECIALIST Body Mass Index 21.82 01/07/2019 6:06 PM TECHNOLOGY SPECIALIST Plan of Treatment Not on file [place] Guarantor: Kevin Perry Account Type Relation to Patient Date of Phone Billing Address Medication Therapy Self 1960 [address] [place] [address] [place] Care Teams Flange Turner Relationship Specialty Start Date End Date Tennille Goddard APRN INFORMATION SERVICES TECH [address] [place] [address] PCP - General Nurse Practitioner - Family 08/18/19 Dov Alston [place]PH [id number] [place] [address] Pharmacist Pharmacist 06/16/19
--- OUTSIDE RECORDS SUMMARY | 2025-02-02 22:47 | XMS_ITS | Encounter Summary ---
Author Organization [facility] Address [address] [place] [address] Care Team Providers Care Property Custodian Name Role Phone Andrea Kellylilia Buchanan APRN C.N.PKathrin, D.N.P. Primary Car e Provider Encounter Details Date Type Department Care Team (Late st Contact Info) Description 12/25/2024 Orders Only Department of Radiation Oncology in [place], [place] [address] [place] [phone] Kiana Oliver M.D. 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 [phone] 02/04/2025 1:00 PM CDT Appointment Department of Radiation Oncology in [place], [place] [address] [place] [phone] Kiana Oliver M.D. [address] [place] [phone] 02/05/2025 12:45 PM CDT Appointment Department of Radiation Oncology in [place], [place] [address] [place] [phone] Kiana Oliver M.D. [address] [place] [phone] 02/05/2025 1:00 PM CDT Appointment Department of Radiation Oncology in [address] [phone] Kiana Oliver M.D. [address] [place] [phone] 02/06/2025 1:00 PM CDT Appointment Department of Radiation Oncology in [place], [place] [address] [place] [phone] Kiana Oliver M.D. [address] [place] [phone] 02/09/2025 1:00 PM CDT Appointment Department of Radiation Oncology in [place], [place] [address] [place] [address] Kiana Oliver M.D. [address] [place] [phone] 02/10/2025 1:00 PM CDT Appointment Department of Radiation Oncology in [address] [phone] Kiana Oliver M.D. [address] [place] [phone] 02/11/2025 1:00 PM CDT Appointment Department of Radiation Oncology in [place], [place] [address] [place] [phone] Kiana Oliver M.D. [address] [place] [phone] 02/12/2025 1:00 PM CDT Appointment Department of Radiation Oncology in [place], [place] [address] [place] [phone] Kiana Oliver M.D. [address] [place] [phone] 02/12/2025 1:15 PM CDT Appointment Department of Radiation Oncology in [address] [phone] Kiana Oliver M.D. [address] [place] [phone] 02/13/2025 1:00 PM CDT Appointment Department of Radiation Oncology in [place] [id number] [place] [address] Kiana Oliver M.D. [address] [place] [phone] 02/16/2025 7:15 AM CDT Ancillary Procedure Department of Ophthalmology in [place], [place] [address] [place] [phone] Maida Tim O.D. [address] [place] [phone] 02/16/2025 8:00 AM CDT Comprehensive Visit Department of Ophthalmology in [place], [place] [address] [place] [phone] Desi Rasmussen O.D. [address] [place] [phone] 02/23/2025 8:15 AM CDT Clinical Communication Virtual Review in [place], [place] [address] [place] [address] 02/24/2025 9:40 AM CDT Office Visit Department of Dermatology in [place], [place] [address] [place] [phone] Felipe Stewart M.D. [address] [place] [phone] 02/24/2025 10:00 AM CDT Office Visit Jeyson Kevin [facility] in [place], [place] [address] [place] [phone] Aide Welch P.A.-C., M.S. [address] [place] [phone] 03/03/2025 9:00 AM CDT Telemedicine Department of Nutrition and Diabetes Education in [place], [place] [address] [place] [phone] Katelin Alcaraz APRN, C.N.P., D.N.P. [address] [place] [phone] Mansi Ross M.S., RDN, LD [address] [place] [phone] Scheduled Orders Name Type Priority Associated Diagnoses Order Schedule Cardiac Device Interrogation Implantable Cardiac Device Routine Malignant Neoplasm Of Face Squamous Cell Expected: 02/13/2025, Expires: 03/24/2026 documented as of this encounter Visit Diagnoses Diagnosis Malignant Neoplasm Of Face Squamous Cell- Primary documented in this encounter Additional Health Concerns Infection Onset Date Last Indicated Resolved Time Protective Environment 11/10/2023 11/10/2023 Assessment Noted Time PHQ-9 Depression Total Score: 19 025 12:23 PM EDUCATIONAL ASSISTANT TEACHER documented as of this encounter Care Teams Property Custodian Relationship Specialty Start Date End Date Kelly Mendez APRN, C.N.P., D.N.P. [address] [place] [phone] PCP - General Internal Medicine 12/05/23 [place] [facility] [place] or [facility] lab Laboratory Medicine 02/26/23 documented as of this encounter
--- OUTSIDE RECORDS SUMMARY | 2025-02-02 22:47 | XMS_ITS ---
Author Organization [facility] Address [address] [place] [address] Care Team Providers Care Generator Repairer Name Role Phone Kelly Mendez APRN C.N.PKathrin, D.N.PKathrin Primary Car e Provider Transplant Episode Liver Recipient [facility] ([place], [place]) - [facility] Organ Received: Liver Transplanted on 11/10/2023 Marked as Active Follow-up on 11/10/2023 Liver CoordinatorChristy Abad R.N., C.C.T.C. Fax: N/A Email: [email or web address] Organ Diagnosis Organ Primary Contributory Liver Acute Alcohol-Associated Hepatit is With or Without Cirrhosis Donor Information Organ ABO Source Meets Risk Criteria HLA Match Mismatches Cross Match Liver Transplanted A1 DBD No A: B: DR: Liver Donor Serology Results Anti-HBcAb HBC Total: Negative HBsAg HBsAg: Negative HBsAb HBsAb: Not Done HBV DNA No results on file Anti-HCV HCV: Negative HCV RNA No results on file HAV No results on file Anti-HIV I/II HIV-1: Not Done HIV Ag/Ab Combo Assay: Negative HIV RNA HIV PARIS: Negative Anti-HTLV I/II HTLV: Negative Coccidioides No results on file Anti-CMV CMV IgG: Positive Quantiferon TB No results on file EBV Total No results on file EBV IgG EBV VCA IgG: Positive EBV IgM EBV VCA IgM: Negative EBNA EBNA IgG: Not Done Measles No results on file Mumps No results on file Rubella No results on file Varicella Zoster No results on file HSV 1 No results on file HSV 2 No results on file Toxoplasm a Toxoplasm a IgG: Negative Cryptococcus Ag No results on file Histoplasma No results on file Strongyloides No results on file Schistoso ma No results on file Trypanosoma cruzi No results on file RPR/VDRL RPR: Negative Syphilis No results on file RSV No results on file SARS CoV-2 No results on file HBV PARIS HBV PARIS: Negative HCV PARIS HCV PARIS: Negative Care Team Name Role Phone Fax Email Christy Abad R.N., C.C.T.C. Liver Coordinator [phone] N/A [email or web address] Ashley [place] APRN, C.N.P., D.N.P. Referring Provider [phone] [email or web address] Dalton HeBKathrinS. Transplant Practical Nursing Faculty N/A N/A N/A Marquise Myers M.D. Transplant Practical Nursing Faculty [phone] [email or web address] Carmelo Hernandez M.D., Ph.D. Transplant Surgeon [phone] [email or web address] Post-Transplant Pre-Transplant Admitted: 11/09/2023 Referred: 02/09/2023 Transplanted: 11/10/2023 Evaluation began: 3 Discharged: 11/15/2023 Committee: 09/26/2023 Center waitlisted: 3 Appointments (01/05/2025 - 03/05/2025) When With Visit Type Description 01/08/2025 TXP Office Visit Canceled (Clini c: Scheduling Error) 01/19/2025 TXN[facility] - Flori Shetty Office Visit Transplant Li luis (HCC); Medication Therapy Risk Control Manager Not Anticoagulant 01/19/2025 TXNarda - Flori Shetty Office Visit Canceled (Cli adrianne: Request) 02/24/2025 TXP Office Visit 02/24/2025 TXP Office Visit Canceled (Clini c: Request)
--- OUTSIDE RECORDS SUMMARY | 2025-02-02 22:47 | XMS_ITS | Encounter Summary ---
Author Organization [facility] Address [address] [place] [address] Care Team Providers [employer] Sales Representative Name Role Phone Kelly Mendez APRN C.N.P., D.N.P. Primary Car e Provider Reason for Referral * Outpatient (Routine) - Authorized Specialty Diagnoses / Procedures Referred By Contac t Referred To Contact Dermatology Diagnoses Malignant Neoplasm Of Face Squamous Cell Procedures Professional [employer] Services Elsi Goldsmith M.D. [address] [place] [address] Phone: tel: fax: [facility] [place] Referral ID Status Reason Start Date Expiration Date V isits Requested Visits Authorized [id number] Authorized 12/19/2024 03/21/2026 1 1 N RESOURCES TALENT MANAGER Reason for Visit * Outpatient (Routine) - Closed Specialty Diagnoses / Procedures Referred By Contac t Referred To Contact Dermatology Diagnoses Malignant Neoplasm Of Face Squamous Cell Elsi Goldsmith M.D. [address] [place] [address] Phone: tel: fax: [facility] [place] Referral ID Status Reason Start Date Expiration Date Visits Re quested Visits Authorized [id number] Closed 12/01/2024 06/02/2026 1 1 Encounter Details Date Type Department Care Team (Late st Contact Info) Description 12/19/2024 9:30 AM HUMAN RESOURCES TALENT MANAGER Office Visit Department of Dermatology in [place], [place] [address] [place] [address] Elsi Goldsmith M.D. [address] [place] [address] Malignant Neoplasm Of Face Squamous Cell Social History Tobacco Use Types Packs/Day Years Used Date Smoking Tobacco: Former Cigarettes Q uit: 2008 Passive Smoke Exposure: Never Smokeless Tobacco: Never Alcohol Use Standard Drinks/Week Comments Not Currently 0 (1 standard drink = 0.6 oz pur e alcohol) last 06/23/22 [facility] Utilities Answer Date Recorded In the past 12 months has e electric, gas, oil, or water [place] threatened to shut off services in your [...] week 02/04/2023 How often do you attend hindu or buddhist serv ices? Patient declined 02/04/2023 Do you belong to any clubs o r organizations such as hindu groups, unions, fraternal or athletic groups, or [...] Answer Date Recorded PHQ-2 Score 6 11/23/2024 [facility] - Occupational Stress Questionnaire Answer Date Recorded [...] Date Recorded Dental: Regular Dentist Yes 02/05/20 23 Employment Answer Date Recorded Employment status Permanently disabled 4 Housing Stability Answer Date Recorded What is your living situation today? Patient dec lined 11/10/2024 Comments No Sex and Gender Information Value Date Recorded Sex Assigned at Choose not to disclose 10:32 AM CDT Legal Sex Male 9:11 PM HUMAN RESOURCES TALENT MANAGER Gender Identity na 09/07/2021 10:32 AM CDT Sexual Orientation Choose not to disclose 2020 10:32 AM CDT documented as of this encounter Consult Notes * Elsi Goldsmith M.D. - 12/19/2024 9:30 AM CST SUBJECTIVE REFERRED BY Elsi Goldsmith M.D. CHIEF COMPLAINT/REASON FOR VISIT Assessment of graft site HISTORY OF PRESENT ILLNESS Mr. Kevin Perry is a pleasant 64 y.o. adult who presents today for a full skin cancer screeningexamination. The patient has a history of a liver transplant in 10/2023 and is on chronic immunosuppressive therapy with tacrolimus . The patient has a dermatologic history of nonmelanoma skin cancer, found to be squamous cell carcinoma, moderately differentiated (Stage T2b [facility], T3 AJCC), of the left forehead on 10/21/2024 s/p Mohs surgery 11/24/23. The patient's last procedure visit with [facility] was on 11/24/2024 with me, Dr. Elsi Goldsmith. Mohs micrographic surgery was performed of the left forehead. On 11/25/2024 a focused skin examination of the forehead was performed, and the patient was found to have healing wound to forehead surgical site of squamous cell carcinoma excision with an intact clot noted over full-thickness skin graft. His postop course was complicated by bleeding under the graft which resulted in superficial sloughing and he is coming in to check the area as requested by hisradiation team. They are planning to do radiation. We have seen his taoist at the last follow up and today they want us to assess the full thickness skin graft. Allergies Allergen Reactions Mirtazapine Hallucinations Extreme skin sensitivity, hallucinations, vivid alarming dreams and other related sleep problems. Lactulose GI intolerance Metformin GI intolerance On LOW DOSE ER PAST DERMATOLOGIC HISTORY Invasive well differentiated squamous cell carcinoma, left forehead, 10/21/2024, status post Mohs 11/24/2024. FAMILY DERMATOLOGIC HISTORY Mother and brother, history of unknown type of skin cancers OBJECTIVE PHYSICAL EXAM General: Awake, alert, in no acute distress, and with appropriate affect. Eyes: No scleral injection or icterus. No eyelid abnormalities. Lymph: No lower extremity edema. Skin: I have examined the left forehead. Skin graft in place; areas with superficial sloughing/erosion. Superior and inferior margin with intact epidermis; several islands of epidermal regeneration noted. Along the inferior/medial aspect, there is beefy red coloration consistent with intact dermis.Fibrinous debris overlying. IMPRESSION/REPORT/PLAN #1 Superficial sloughing of full thickness skin graft s/p Mohs micrographic surgeyr 11/24/24 #2 High risk squamous cell carcinoma, moderately differentiated with multifocal PNI and lymphovascular invasion (Stage T2b [facility], T3 AJCC) s/p Mohs surgery 11/24/23 No signs of infection on exam today. Overall, healing exceptionally well with intact dermis throughout. Given islands of epidermis present, I am hopeful that a larger portion (>50-75%) of the graft will be fully re-epithelialized before planned initiation of radiation. I shared with patient and that the radiation team will determine the start date for radiation.In some cases, radiation is initiated prior to full healing of a surgical site. - Photo today - Patient to send photo in 2 weeks - Continue follow-up and initiation of XRT as per radiation team - Needs Q3 month full skin checks given high risk skin cancer (Appt with Dr. Stewart scheduled) - Repeat imaging Q3 mo; H/N u/s and CT chest Recommend the following for wound care: - Vinegar soak daily, education provided - Continue to keep area moist with vaseline and bandage. If maceration of surrounding skin due to bandaging, OK to leave open to air at home with vigilant vaseline coverage to ensure moist wound healing environment. - Continue healthy diet with sufficient protein for wound healing PATIENT EDUCATION Ready to learn. No apparent learning barriers were identified. Learning preferences include listening. Explained diagnosis and treatment plan; patient/guardian of patient expressed understanding of the content. This document serves as a record of services personally performed by me. It was created on my behalf by Racheal Deepak, a trained medical policy specialist. The creation of this record is based on the scribe remotely listening to the visit and the provider's statements to them. This document has been checked and approved by the attending provider. Scribed for Lola Goldsmith M.D. by Racheal Sotelo, on 12/19/2024, 6:57 AM HUMAN RESOURCES TALENT MANAGER. N RESOURCES TALENT MANAGER documented in this encounter Plan of Treatment Upcoming Encounters Date Type Department Care Team (Latest Contact Info) Description 02/03/2025 1:00 PM CDT Appointment Department of Radiation Oncology in [address] [phone] Kiana Oliver M.D. [address] [place] [phone] 02/04/2025 1:00 PM CDT Appointment Department of Radiation Oncology in [address] [phone] Kiana Oliver M.D. [address] [place] [phone] 02/05/2025 12:45 PM CDT Appointment Department of Radiation Oncology in [address] [address] Kiana Oliver M.D. [address] [place] [phone] 02/05/2025 1:00 PM CDT Appointment Department of Radiation Oncology in [address] [address] Kiana Oliver M.D. [address] [place] [phone] 02/06/2025 1:00 PM CDT Appointment Department of Radiation Oncology in [place], [place] [address] [place] [phone] Kiana Oliver M.D. [address] [place] [phone] 02/09/2025 1:00 PM CDT Appointment Department of Radiation Oncology in [address] [address] Kiana Oliver M.D. [address] [place] [phone] 02/10/2025 1:00 PM CDT Appointment Department of Radiation Oncology in [address] [address] Kiana Oliver M.D. [address] [place] [phone] 02/11/2025 1:00 PM CDT Appointment Department of Radiation Oncology in [address] [address] Kiana Oliver M.D. [address] [place] [phone] 02/12/2025 1:00 PM CDT Appointment Department of Radiation Oncology in [address] [address] Kiana Oliver M.D. [address] [place] [phone] 02/12/2025 1:15 PM CDT Appointment Department of Radiation Oncology in [address] [address] Kiana Oliver M.D. [address] [place] [phone] 02/13/2025 1:00 PM CDT Appointment Department of Radiation Oncology in [place], [place] [address] [place] [phone] Kiana Oliver M.D. [address] [place] [phone] 02/16/2025 7:15 AM CDT Ancillary Procedure Department of Ophthalmology in [place], [place] [address] [place] [phone] Maida Tim O.D. [address] [place] [phone] 02/16/2025 8:00 AM CDT Comprehensive Visit Department of Ophthalmology in [place], [place] [address] [place] [phone] Desi Rasmussen O.D. [address] [place] [phone] 02/23/2025 8:15 AM CDT Clinical Communication Virtual Review in [place], [place] [address] [place] [phone] 02/24/2025 9:40 AM CDT Office Visit Department of Dermatology in [place], [place] [address] [place] [phone] Felipe Stewart M.D. [address] [place] [phone] 02/24/2025 10:00 AM CDT [facility] [place], [place] [address] [place] [phone] Aide Welch P.A.-C., M.S. [address] [place] [phone] 03/03/2025 9:00 AM CDT Telemedicine Department of Nutrition and Diabetes Education in [place], [place] [address] [place] [address] Katelin Alcaraz APRN, C.N.P., D.N.P. [address] [place] [address] Mansi Ross M.S., RDN, LD [address] [place] [address] Scheduled Orders Name Type Priority Associated Diagnoses Orde r Schedule Professional Photography Services Procedures Routine Malignant Neoplasm Of Face Squamous Cell Ordered: 12/19/2024 documented as of this encounter Visit Diagnoses Diagnosis Malignant Neoplasm Of Face Squamous Cell documented in this encounter Additional Health Concerns Infection Onset Date Last Indicated Resolved Time Protective Environment 11/10/2023 11/10/2023 Assessment Noted Time PHQ-9 Depression Total Score: 19 025 12:23 PM HUMAN RESOURCES TALENT MANAGER documented as of this encounter Care Teams [employer] Sales Representative Relationship Specialty Start Date End Date Kelly Mendez APRN, C.N.P., D.N.P. [address] [place] [address] PCP - General Internal Medicine [facility]05[facility]23 [facility] [place] [facility] [place] lab Laboratory Medicine 02/26/23 documented as of this encounter
--- OUTSIDE RECORDS SUMMARY | 2025-02-02 22:47 | XMS_ITS | Encounter Summary ---
Author Organization [facility] Address [address] [place] [address] Care Team Providers Care Regulatory Manager Name Role Phone Kelly Mendez APRN C.N.PKathrin, D.N.P. Primary Car e Provider Reason for Referral * Outpatient (Routine) - Closed Specialty Diagnoses / Procedures Referred By Contac t Referred To Contact Radiation Oncology Veronica Parada P.A.-C., M.SKathrin [address] [place] [phone] Phone: tel: fax: Kiana Oliver M.D. [address] [place] [phone] Phone: tel: fax: Referral ID Status Reason Start Date Expiration Date Visits Re quested Visits Authorized [id number] Closed 12/11/2024 06/12/2026 1 1 Scheduling Instructions With sim CRINOLOGIST Reason for Visit * Outpatient (Routine) - Closed Specialty Diagnoses / Procedures Referred By Contac t Referred To Contact Radiation Oncology Veronica Parada P.A.-C., M.S. [address] [place] [phone] Phone: tel: fax: Kiana Oliver M.D. [address] [place] [address] Phone: tel: fax: Referral ID Status Reason Start Date Expiration Date Visits Re quested Visits Authorized [id number] Closed 12/11/2024 06/12/2026 1 1 Encounter Details Date Type Department Care Team (Latest Contact Info) Description 12/23/2024 12:09 PM ENDOCRINOLOGIST - 12/23/2024 12:47 PM ENDOCRINOLOGIST Hospital Encounter Department of Radiation Oncology in [place], [place] [address] [place] [address] Kiana Oliver M.D. [address] [place] [phone] 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 (Primary Dx) Social History Tobacco Use Types Packs/Day Years Used Date Smoking Tobacco: Former Cigarettes Q uit: 2008 Passive Smoke Exposure: Never Smokeless Tobacco: Never Alcohol Use Standard Drinks/Week Comments Not Currently 0 (1 standard drink = 0.6 oz pur e alcohol) last 06/23/22 [facility] Utilities Answer Date Recorded In the past 12 months has e [employer], gas, oil, or water [employer] threatened to shut off services in your [...] week 02/04/2023 How often do you attend yarsanism or scientology serv ices? Patient declined 02/04/2023 Do you belong to any clubs o r organizations such as yarsanism groups, unions, fraternal or athletic groups, or [...] Answer Date Recorded PHQ-2 Score 6 11/23/2024 [facility] - Occupational Stress Questionnaire Answer Date Recorded [...] AM CDT Legal Sex Male 9:11 PM ENDOCRINOLOGIST Gender Identity na 09/07/2021 10:32 AM CDT Sexual Orientation Choose not to disclose 2020 10:32 AM CDT documented as of this encounter Last Filed Vital Signs Vital Sign Reading Time Taken Comments Blood Pressure 81/56 12/23/2024 12:23 PM ENDOCRINOLOGIST Pulse 110 12/23/2024 12:23 PM ENDOCRINOLOGIST Temperature 36.5 C (97.7 F) 12/23/2024 12:23 PM ENDOCRINOLOGIST Respiratory Rate - - Oxygen Saturation - - Inhaled Oxygen Concentration - - Weight 44.5 kg (98 lb 1.7 oz) 12/23/2024 12:23 P M ENDOCRINOLOGIST Height - - Body Mass Index 16.01 11/10/2024 1:00 PM ENDOCRINOLOGIST documented in this encounter Medications at Time [...] diabetes control. 1 each 12/12/2023 11:05 AM ENDOCRINOLOGIST 12/11/2023 calcium citrate-vitamin D3 (Citracal + D3) 315 mg-5 mcg (200 Unit) per tablet Take 1 tablet by mouth 2 (two) times a day with meals. 200 tablet 3 10/20/2024 10/20/20 25 famotidine (Pepcid) 20 mg tablet Take 1 tablet (20 mg total) by mouth 2 (two) times a day as needed for heartburn. 60 tablet 1 11/14/2024 12:18 PM ENDOCRINOLOGIST 11/14/2024 fluoride, sodium, (PreviDent) 1.1 % gel [...] daily. 90 tablet 3 10/29/2024 11:46 AM ENDOCRINOLOGIST 06/05/2024 gabapentin (NEURONTIN) 300 mg capsule Take 2 capsules (600 mg total) by mouth at bedtime. 04/07/2024 HYDROcodone-acetami nophen ([place]) 7.5-325 mg per tabletIndications:C hronic Pain/Nonacute Pain [...] 911. 15 mL 2 11/14/2024 12:18 PM ENDOCRINOLOGIST 11/14/2024 ondansetron ODT (Zofran-ODT) 4 mg disintegrating tablet Dissolve 1 tablet (4 mg total) in the mouth every 8 (eight) hours as needed for nausea or vomiting. 30 tablet 3 11/26/2024 3:29 PM ENDOCRINOLOGIST 06/05/2024 pen needle, diabetic (BD Ultra-Fine Short Pen Needle) 31 gauge x 5/16 needle Use 3 times a day 300 each 1 11/14/2024 12:18 PM ENDOCRINOLOGIST 11/14/2024 rOPINIRole (Requip) 0.25 mg tabletIndications:R estless Leg Syndrome Take 2 tablets (0.5 mg total) by mouth at bedtime as needed (RLS). 30 tablet 11/26/2024 3:29 PM ENDOCRINOLOGIST 11/13/2024 rosuvastatin (Crestor) 5 mg tablet Take 1 tablet (5 mg total) by mouth daily. 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 100 tablet 02/22/2024 5:09 PM CDT 02/22/2024 blood-glucose sensor (FreeStyle Apryl 3 Sensor) deviceIndications:D iabetes Mellitus Type 2 Hyperglycemia (HCC) 1 each every 14 (fourteen) days. 6 each 3 11/26/2024 3:29 PM ENDOCRINOLOGIST 09/04/2024 01/29/20 25 insulin glargine 100 unit/mL [...] 1 mg capsuleIndications: Transplant Liver (HCC),Medication Therapy Usp Not Anticoagulant Take 4 capsules (4 mg total) by mouth 2 (two) times a day. 720 capsule 3 12/01/2024 01/01/20 25 documented as of this encounter Progress Notes * Kiana Oliver M.D. - 12/23/2024 12:30 PM CST RADIATION ONCOLOGY FOLLOW-UP NOTE SUBJECTIVE REFERRAL SOURCE Established patient DIAGNOSIS 1. Left forehead squamous cell carcinoma CHIEF COMPLAINT/REASON FOR VISIT Mr. 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 Goldsmith and having a prosthodontics visit. Oncology History 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 10/21/2024 Other Patient presented to Dermatology with no history of prior skin cancers and about a 1 year history of a left forehead lesion that had bled in the past. He had a history of liver transplant in October2023 and was on tacrlimus. A biopsy was taken. 10/21/2024 Biopsy/Pathology Left forehead, skin shave biopsy: Invasive well-differentiated squamous cell carcinoma, involving peripheral and deep biopsy borders (transected), with impetiginized serosanguineous crust. 11/24/2024 Surgery and Procedures Mohs micrographic surgery with full thickness skin graft closure of Left forehead squamous cell carcinoma, moderately differentiated (Stage T2b [facility], T3 AJCC) Pre-op size was 1.9 X 1.3cm Extensive perineural and lymphovascular invasion noted. Margins negative on stage 6. Final depth to supraorbital rim and temporal fascia Post-operative size=4.3 X 6cm 12/01/[address] neck, head and chest demonstrated: No acute intracranial abnormality or evidence of intracranial metastatic disease or vascular abnormality. No acute findings. No evidence of cervical mass or adenopathy. The chest revealed the following: a. Interval multifocal pure groundglass opacities within the right upper lobe, most likely infectious/inflammatory etiology given multiplicity and new findings since 10/21/2024. Short interval follow-up chest CT recommended in 3 months to document resolution. b. Stable small solid lower lobe pulmonary nodules measuring 4 mm or less. No new or enlarging solid pulmonary nodules. 01/05/2025 - Radiation Therapy Radiation Therapy Treatment Details (Noted on 12/08/2024) Site: Skin of face, head, neck Technique: No technique specified Goal: Curative Planned Treatment Start Date: 01/05/2025 INTERVAL HISTORY: Since I last saw Mr. Kevin Perry he reports that his wound is doing a little bit better and Dr. Goldsmith felt it was healing appropriately. His dental evaluation went well as well. OBJECTIVE BP (!) 81/56 (BP Location: Left arm, Patient Position: Sitting, Cuff Size: Small) Pulse 110 Temp 36.5 ??C (Temporal) Wt 44.5 kg BMI 16.01 kg/m?? General: Mr. Kevin Perry is a thin man who is seated in his wheel chair. The left latter-day wound does continue to improve. He has less blood and islands of the skin flap. It looks better than the photo Dr. Goldsmith took on 12/19/2024. DIAGNOSTICS I have reviewed the available imaging, operative and pathology reports as described above and reviewed in the EMR. 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 We discussed again his treatment alternatives including radiation to the primary site with or without following the nerves and lymph nodedrainage basins. We also discussed hypofractionated vs conventionally radiation related. We discussed photons vs protons. He understands that there is a risk of regional or nerve recurrence in the future and that patients with organ transplants can get very aggressive skin cancers. We discussed the rationale, risks, side effects and goals of radiation therapy. We discussed the acute as well as shelter risks, including, but not limited to fatigue, skin erythema, hair loss, vision changes and severe dry eye which could result in the loss of his eye, fibrosis, and small risks to the nerves, his skin graft and his eye. We also discussed that his wound is not healing well and that if we start while the wound is still healing that it could take longer to heal. We discussed the possibility that he could lose his skin graft and that healing could take months after radiation is done. They understood and their questions were answered. He wished to proceed with treatment. We te ntatively plan on delivering 6000 cGy in 30 fractions starting January 05, 2025 as this will give him an extra week of healing and he will still be within 6 weeks of the surgery date. He was agreeable to treating the primary site and primary drainage area which would include the left parotid and level II lymph nodes. I will treat the skull base to 5400 cGy in 30 fractions. I might call him and tell him to start on January 05 which would be 6 weeks from the surgery date. We also discussed obtaining a physics consultation and ensuring that our field is more than 20cm from the implanted pacemaker since he is dependent. My thanks to Agus Carrillo, and Mike for the opportunity to participate in this patient's care. EDUCATION Ready to learn, no apparent learning barriers were identified; learning preferences include listening. Explained diagnosis and treatment plan; patient expressed understanding of the content. CONSENT Discussed the risks, benefits, alternatives, and the necessity of other members of the healthcare team participating in the procedure. All questions answered and consent given. I personally spent 28 minutes in care of the patient today. Time includes both non face to face andface to face patient care. Signed by: Kiana Oliver M.D. 12/23/2024 4:09 PM ENDOCRINOLOGIST Radiation Oncology [facility] [address] [place], [place] [id number] RINA documented in this encounter Plan of Treatment Upcoming Encounters Date Type Department Care Team (Latest Contact Info) Description 02/03/2025 1:00 PM CDT Appointment Department of Radiation Oncology in [address] [phone] Kiana Oliver M.D. [address] [place] [phone] 02/04/2025 1:00 PM CDT Appointment Department of Radiation Oncology in [address] [phone] Kiana Oliver M.D. [address] [place] [phone] 02/05/2025 12:45 PM CDT Appointment Department of Radiation Oncology in [address] [phone] Kiana Oliver M.D. [address] [place] [phone] 02/05/2025 1:00 PM CDT Appointment Department of Radiation Oncology in [address] [phone] Kiana Oliver M.D. [address] [place] [phone] 02/06/2025 1:00 PM CDT Appointment Department of Radiation Oncology in [address] [phone] Kiana Oliver M.D. [address] [place] [phone] 02/09/2025 1:00 PM CDT Appointment Department of Radiation Oncology in [address] [phone] Kiana Oliver M.D. [address] [place] [phone] 02/10/2025 1:00 PM CDT Appointment Department of Radiation Oncology in [place], [place] [address] [place] [phone] Kiana Oliver M.D. [address] [place] [phone] 02/11/2025 1:00 PM CDT Appointment Department of Radiation Oncology in [address] [phone] Kiana Oliver M.D. [address] [place] [phone] 02/12/2025 1:00 PM CDT Appointment Department of Radiation Oncology in [address] [phone] Kiana Oliver M.D. [address] [place] [phone] 02/12/2025 1:15 PM CDT Appointment Department of Radiation Oncology in [address] [phone] Kiana Oliver M.D. [address] [place] [phone] 02/13/2025 1:00 PM CDT Appointment Department of Radiation Oncology in [place], [place] [address] [place] [phone] Kiana Oliver M.D. [address] [place] [phone] 02/16/2025 7:15 AM CDT Ancillary Procedure Department of Ophthalmology in [place], [place] [address] [place] [phone] Maida Tim O.D. [address] [place] [phone] 02/16/2025 8:00 AM CDT Comprehensive Visit Department of Ophthalmology in [place], [place] [address] [place] [phone] Desi Rasmussen O.D. [address] [place] [phone] 02/23/2025 8:15 AM CDT Clinical Communication Virtual Review in [place], [place] [address] [place] [address] 02/24/2025 9:40 AM CDT Office Visit Department of Dermatology in [address] [phone] Felipe Stewart M.D. [address] [place] [phone] 02/24/2025 10:00 AM CDT Office Visit Jeyson Brown [facility] for Transplantation and Clinical Regeneration in [address] [phone] Aide Welch, P.A.-C., M.S. [address] [place] [phone] 03/03/2025 9:00 AM CDT Telemedicine Department of Nutrition and Diabetes Education in [address] [phone] Katelin Alcaraz APRN, C.N.P., D.N.P. [address] [place] [phone] Mansi Ross MJacob, RDN, LD [address] [place] [address] Scheduled Referrals Name Type Priority Associated Diagnoses Order Schedule Radiation Oncology office visit (clinic) Outpatient Referral Routine Once for 1 Occurrences starting 12/23/2024 until 12/23/2024 documented as of this encounter Visit Diagnoses Diagnosis 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- Primary documented in this encounter Additional Health Concerns Infection Onset Date Last Indicated Resolved Time Protective Environment 11/10/2023 11/10/2023 Assessment Noted Time PHQ-9 Depression Total Score: 19 025 12:23 PM ENDOCRINOLOGIST documented as of this encounter Care Teams Regulatory Manager Relationship Specialty Start Date End Date Kelly Mendez APRN, C.N.P., D.N.P. [address] [place] [phone] PCP - General Internal Medicine 12/05/23 [facility] or [facility] lab Laboratory Medicine 02/26/23 documented as of this encounter
--- OUTSIDE RECORDS SUMMARY | 2025-02-02 22:47 | XMS_ITS | Encounter Summary ---
Author Organization [facility] Address [address] [place] [address] Care Team Providers Care Inspector And Tester Name Role Phone Kelly Mendez APRN C.N.PKathrin, D.N.P. Primary Car e Provider Reason for Referral * Radiation Therapy (Routine) - Authorized Specialty Diagnoses / Procedures Referred By Juanito ayala Referred To Contact Diagnoses 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 Procedures Initial Rad Onc Treatment Planning CT Simulation OK IMRT RADIOTHERAPY PLAN Kiana Gresham M.D. [address] [place] [address] Phone: tel: fax: [facility] [address] [place] [address] Referral ID Status Reason Start Date Expiration Date V isits Requested Visits Authorized [id number] Authorized 12/11/2024 03/10/2026 2 2 ING ALLEY MANAGER Reason for Visit * Radiation Therapy (Routine) - Authorized Specialty Diagnoses / Procedures Referred By Juanito ayala Referred To Contact Diagnoses 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 Procedures Initial Rad Onc Treatment Planning CT Simulation OK IMRT RADIOTHERAPY PLAN Kiana Gresham M.D. [address] [place] [address] Phone: tel: fax: T [facility] [address] [place] [address] Referral ID Status Reason Start Date Expiration Date V isits Requested Visits Authorized [id number] Authorized 12/11/2024 03/10/2026 2 2 Encounter Details Date Type Department Care Team (Latest Contact Info) Description 12/23/2024 12:48 PM BOWLING ALLEY MANAGER - 12/23/2024 4:19 PM BOWLING ALLEY MANAGER Hospital Encounter Department of Radiation Oncology in [place], [place] [address] [place] [phone] Kiana Oliver M.D. [address] [place] [address] 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 Social History Tobacco Use Types Packs/Day Years Used Date Smoking Tobacco: Former Cigarettes Q uit: 2008 Passive Smoke Exposure: Never Smokeless Tobacco: Never Alcohol Use Standard Drinks/Week Comments Not Currently 0 (1 standard drink = 0.6 oz pur e alcohol) last 06/23/22 [facility] Utilities Answer Date Recorded In the past 12 months has [employer] gas, oil, or water [employer] threatened to shut off services in your [...] week 02/04/2023 How often do you attend restorationist or faith serv ices? Patient declined 02/04/2023 Do you belong to any clubs o r organizations such as restorationist groups, unions, fraternal or athletic groups, or [...] Answer Date Recorded PHQ-2 Score 6 11/23/2024 [facility] - Occupational Stress Questionnaire Answer Date Recorded [...] AM CDT Legal Sex Male 9:11 PM BOWLING ALLEY MANAGER Gender Identity na 09/07/2021 10:32 AM [...] diabetes control. 1 each 12/12/2023 11:05 AM BOWLING ALLEY MANAGER 12/11/2023 calcium citrate-vitamin D3 (Citracal + D3) 315 mg-5 mcg (200 Unit) per tablet Take 1 tablet by mouth 2 (two) times a day with meals. 200 tablet 3 10/20/2024 10/20/20 25 famotidine (Pepcid) 20 mg tablet Take 1 tablet (20 mg total) by mouth 2 (two) times a day as needed for heartburn. 60 tablet 1 11/14/2024 12:18 PM BOWLING ALLEY MANAGER 11/14/2024 fluoride, sodium, (PreviDent) 1.1 % gel [...] daily. 90 tablet 3 10/29/2024 11:46 AM BOWLING ALLEY MANAGER 06/05/2024 gabapentin (NEURONTIN) 300 mg capsule Take 2 capsules (600 mg total) by mouth at bedtime. 04/07/2024 HYDROcodone-acetami nophen ([place]ineveh) 7.5-325 mg per tabletIndications:C hronic Pain/Nonacute Pain [...] 911. 15 mL 2 11/14/2024 12:18 PM BOWLING ALLEY MANAGER 11/14/2024 ondansetron ODT (Zofran-ODT) 4 mg disintegrating tablet Dissolve 1 tablet (4 mg total) in the mouth every 8 (eight) hours as needed for nausea or vomiting. 30 tablet 3 11/26/2024 3:29 PM BOWLING ALLEY MANAGER 06/05/2024 pen needle, diabetic (BD Ultra-Fine Short Pen Needle) 31 gauge x 5/16 needle Use 3 times a day 300 each 1 11/14/2024 12:18 PM BOWLING ALLEY MANAGER 11/14/2024 rOPINIRole (Requip) 0.25 mg tabletIndications:R estless Leg Syndrome Take 2 tablets (0.5 mg total) by mouth at bedtime as needed (RLS). 30 tablet 11/26/2024 3:29 PM BOWLING ALLEY MANAGER 11/13/2024 rosuvastatin (Crestor) 5 mg tablet Take 1 tablet (5 mg total) by mouth daily. 90 tablet 3 12/29/2024 1:25 PM BOWLING ALLEY MANAGER 06/05/2024 sennosides-docusate sodium (Stool Softener-Stimulant Laxat) 8.6-50 mg per tabletIndications:T ransplant Liver (HCC),Medication Therapy Shelter Not Anticoagulant,Drug Induced Constipation Take 1 tablet by mouth 2 (two) times a day. 100 tablet 02/22/2024 5:09 PM CDT 02/22/2024 blood-glucose sensor (FreeStyle Apryl 3 Sensor) deviceIndications:D iabetes Mellitus Type 2 Hyperglycemia (HCC) 1 each every 14 (fourteen) days. 6 each 3 11/26/2024 3:29 PM BOWLING ALLEY MANAGER 09/04/2024 01/29/20 25 insulin glargine 100 unit/mL [...] 1 mg capsuleIndications: Transplant Liver (HCC),Medication Therapy Monotypist Not Anticoagulant Take 4 capsules (4 mg total) by mouth 2 (two) times a day. 720 capsule 3 12/01/2024 02/13/20 25 documented as of this encounter Procedure Notes * Macrina Bernal - 12/23/2024 1:00 PM CSTAssociated Order(s): Initial Rad Onc Treatment Planning CT Simulation Pre-Procedure Diagnose(s): 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 Post-Procedure Diagnose(s): 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 Initial Rad Onc Treatment Planning CT Simulation Performed by: Kiana Oliver M.D. Authorized by: Kiana Oliver M.D. Simulation was performed under physician supervision based on physician order in preparation for radiation therapy. Physician was immediately available to provide assistance and direction throughout the procedure. Written consent for treatment was completed or confirmed. The patient was appropriately identified and placed in the treatment position using the necessary immobilization to ensure a reproducible treatment position. Reference elise were placed to facilitate marking of isocenter. Area scanned:Head Contrast used for the simulation procedure: None Patient position:head first supine Custom immobilization: 3 point mask and Custom neck rest Motion management: None Bolus: Yes CT guidance: Following positioning of the patient, a series of slices was obtained to be utilized in treatment planning. CT images were transferred to the [employer] treatment planning system, after a reference isocenter was determined and marked. Segmentation and treatment planning will take place prior to treatment delivery. Patient set up and imaging was appropriate and completed without incident. Iv Therapy Nurse use:No Cosigned by Kiana Oliver M.D. at 12/23/2024 4:19 PM BOWLING ALLEY MANAGER ING ALLEY MANAGER ING ALLEY MANAGER Associated attestation - Kiana Oliver M.D. - 12/23/2024 4:19 PM BOWLING ALLEY MANAGER I was present during all critical and guadarrama portions of the procedure(s) and [facility]. See note for details. documented in this encounter Plan of Treatment Upcoming Encounters Date Type Department Care Team (Latest Contact Info) Description 02/03/2025 1:00 PM CDT Appointment Department of Radiation Oncology in [address] [phone] Kiana Oliver M.D. [address] [place] [phone] 02/04/2025 1:00 PM CDT Appointment Department of Radiation Oncology in [address] [phone] Kiana Oliver M.D. [address] [place] [phone] 02/05/2025 12:45 PM CDT Appointment Department of Radiation Oncology in [address] [address] Kiana Oliver M.D. [address] [place] [phone] 02/05/2025 1:00 PM CDT Appointment Department of Radiation Oncology in [address] [phone] Kiana Oliver M.D. [address] [place] [phone] 02/06/2025 1:00 PM CDT Appointment Department of Radiation Oncology in [place], [place] [address] [place] [phone] Kiana Oliver M.D. [address] [place] [address] 02/09/2025 1:00 PM CDT Appointment Department of Radiation Oncology in [address] [phone] Kiana Oliver M.D. [address] [place] [address] 02/10/2025 1:00 PM CDT Appointment Department of Radiation Oncology in [place], [place] [address] [place] [phone] Kiana Oliver M.D. [address] [place] [phone] 02/11/2025 1:00 PM CDT Appointment Department of Radiation Oncology in [place], [place] [address] [place] [phone] Kiana Oliver M.D. [address] [place] [phone] 02/12/2025 1:00 PM CDT Appointment Department of Radiation Oncology in [address] [address] Kiana Oliver M.D. [address] [place] [phone] 02/12/2025 1:15 PM CDT Appointment Department of Radiation Oncology in [address] [phone] Kiana lOiver M.D. [address] [place] [phone] 02/13/2025 1:00 PM CDT Appointment Department of Radiation Oncology in [address] [address] Kiana Oliver M.D. [address] [place] [phone] 02/16/2025 7:15 AM CDT Ancillary Procedure Department of Ophthalmology in [place], [place] [address] [place] [phone] Maida Tim O.D. [address] [place] [phone] 02/16/2025 8:00 AM CDT Comprehensive Visit Department of Ophthalmology in [place], [place] [address] [place] [phone] Desi Rasmussen O.D. [address] [place] [phone] 02/23/2025 8:15 AM CDT Clinical Communication Virtual Review in [place], [place] [address] [place] [address] 02/24/2025 9:40 AM CDT Office Visit Department of Dermatology in [address] [phone] Felipe Stewart M.D. [address] [place] [phone] 02/24/2025 10:00 AM CDT Office Visit Jeyson Kevin [facility] in [place], [place] [address] [place] [phone] Aide Welch P.A.-C., M.S. [address] [place] [phone] 03/03/2025 9:00 AM CDT Telemedicine Department of Nutrition and Diabetes Education in [place], [place] [address] [place] [phone] Katelin Alcaraz, TIRE ROOM SUPERVISOR, C.N.P., D.N.P. [address] [place] [phone] Mansi Ross M.S., RDN, LD [address] [place] [phone] documented as of this encounter Procedures Procedure Name Priority Date/Time Associated Diagnosis Comments INITIAL RAD ONC TREATMENT PLANNING CT SIMULATION Routine 12/23/2024 1:00 PM BOWLING ALLEY MANAGER 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 documented in this encounter Results * Initial Rad Onc Treatment Planning CT Simulation (12/23/2024 1:00 PM BOWLING ALLEY MANAGER) Narrative KELLEN PEREZ - 12/23/2024 1:00 PM BOWLING ALLEY MANAGER Macrina Bernal 12/23/2024 2:03 PM Initial Rad Onc Treatment Planning CT Simulation Performed by: Kiana Oliver M.D. Authorized by: Kiana Oliver M.D. Kiana Oliver M.D. RADIATION ONCOLOGY ORDERA BLES Final Result KELLEN PEREZ na documented in this encounter Visit Diagnoses Diagnosis 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 documented in this encounter Additional Health Concerns Infection Onset Date Last Indicated Resolved Time Protective Environment 11/10/2023 11/10/2023 Assessment Noted Time PHQ-9 Depression Total Score: 19 025 12:23 PM BOWLING ALLEY MANAGER documented as of this encounter Care Teams Inspector And Tester Relationship Specialty Start Date End Date Kelly Mendez APRN, C.N.P., D.N.P. [address] [phone] PCP - General Internal Medicine 12/05/23 [facility] or [facility] lab Laboratory Medicine 02/26/23 documented as of this encounter
--- OUTSIDE RECORDS SUMMARY | 2025-02-02 22:48 | XMS_ITS | Encounter Summary ---
Author Organization [facility] Address [address] [place] [address] Care Team Providers Care Invoice Clerk Name Role Phone Kelly Mendez APRN C.N.Jose, D.N.P. Primary Car e Provider Encounter Details Date Type Department Care Team (Late st Contact Info) Description 11/25/2024 Clinical Communication Department of Radiation Oncology in [place], [place] [address] [place] [address] Edson Grimm M.D. [address] [place] [address] Social History Tobacco Use Types Packs/Day Years Used Date Smoking Tobacco: Former Cigarettes Q uit: 2008 Passive Smoke Exposure: Never Smokeless Tobacco: Never Alcohol Use Standard Drinks/Week Comments Not Currently 0 (1 standard drink = 0.6 oz pur e alcohol) last 06/23/22 [facility] Utilities Answer Date Recorded In the past 12 months has [employer] electric, gas, oil, or water [employer] threatened to shut off services in your [...] week 02/04/2023 How often do you attend anabaptist or sabianism serv ices? Patient declined 02/04/2023 Do you belong to any clubs o r organizations such as anabaptist groups, unions, fraternal or athletic groups, or [...] Answer Date Recorded PHQ-2 Score 6 11/23/2024 [facility] - Occupational Stress [...] AM CDT Legal Sex Male 9:11 PM LETTER CARRIER Gender Identity na 09/07/2021 10:32 AM CDT Sexual Orientation Choose not to disclose 2020 10:32 AM CDT documented as of this encounter Plan of Treatment Upcoming Encounters Date Type Department Care Team (Latest Contact Info) Description 02/03/2025 1:00 PM CDT Appointment Department of Radiation Oncology in [place], [place] [address] [place] [phone] [place] [address] 02/04/2025 1:00 PM CDT Appointment Department of Radiation Oncology in [place] [address] [place] [address] Kiana Oliver M.D. [address] [place] [phone] 02/05/2025 12:45 PM CDT Appointment Department of Radiation Oncology in [place], [place] [address] [place] [address] Kiana Oliver M.D. [address] [place] [address] 02/05/2025 1:00 PM CDT Appointment Department of Radiation Oncology in [place], [place] [address] [place] [phone] Kiana Oliver M.D. [address] [place] [phone] 02/06/2025 1:00 PM CDT Appointment Department of Radiation Oncology in [place], [place] [address] [place] [phone] Kiana Oliver M.D. [address] [place] [phone] 02/09/2025 1:00 PM CDT Appointment Department of Radiation Oncology in [place], [place] [address] [place] [address] Kiana Oliver M.D. [address] [place] [address] 02/10/2025 1:00 PM CDT Appointment Department of Radiation Oncology in [place], [place] [address] [place] [phone] Kiana Oliver M.D. [address] [place] [phone] 02/11/2025 1:00 PM CDT Appointment Department of Radiation Oncology in [place], [place] [address] [place] [phone] Kiana Oliver M.D. [address] [place] [phone] 02/12/2025 1:00 PM CDT Appointment Department of Radiation Oncology in [place], [place] [address] [place] [address] Kiana Oliver M.D. [address] [place] [phone] 02/12/2025 1:15 PM CDT Appointment Department of Radiation Oncology in [address] [phone] Kiana Oliver M.D. [address] [place] [phone] 02/13/2025 1:00 PM CDT Appointment Department of Radiation Oncology in [place], [place] [address] [place] [address] Kiana Oliver M.D. [address] [place] [phone] 02/16/2025 7:15 AM CDT Ancillary Procedure Department of Ophthalmology in [place], [place] [address] [place] [phone] Maida Tim O.D. [address] [place] [phone] 02/16/2025 8:00 AM CDT Comprehensive Visit Department of Ophthalmology in [place], [place] [address] [place] [phone] Desi Rasmussen O.D. [address] [place] [phone] 02/23/2025 8:15 AM CDT Clinical Communication Virtual Review in [place], [place] 200 [place] [address] 02/24/2025 9:40 AM CDT Office Visit Department of Dermatology in [place], [place] [address] [place] [phone] Felipe Stewart M.D. [address] [place] [phone] 02/24/2025 10:00 AM CDT Office Visit Jeyson milan [facility] in [place], [place] [address] [place] [phone] Aide Welch P.A.-C., M.S. [address] [place] [phone] 03/03/2025 9:00 AM CDT Telemedicine Department of Nutrition and Diabetes Education in [address] [phone] Katelin Alcaraz APRN, C.N.P., D.N.P. [address] [place] [phone] Mansi Ross M.S., RDN, LD [address] [place] [phone] documented as of this encounter Visit Diagnoses Not on filedocumented in this encounter Additional Health Concerns Infection Onset Date Last Indicated Resolved Time Protective Environment 11/10/2023 11/10/2023 Assessment Noted Time PHQ-9 Depression Total Score: 19 025 12:23 PM LETTER CARRIER documented as of this encounter Care Teams Invoice Clerk Relationship Specialty Start Date End Date Kelly Mendez APRN, C.N.P., D.N.P. [address] [place] [address] PCP - General Internal Medicine 12/05/[address] [facility] [place] or [facility] [facility] lab Laboratory Medicine 02/26/23 documented as of this encounter
--- OUTSIDE RECORDS SUMMARY | 2025-02-02 22:48 | XMS_ITS | Clinical Summary ---
Author Organization [facility] Address [address] [place] [address] Care Team Providers Care Transmission Worker Name Role Phone Judd Mendezissa Heather OSORIO Primary Care Provider [phone] Allergies No known active allergies Medications rOPINIRole (REQUIP) 0.25 mg tablet Take 0.25 mg by mouth three times daily. Active rosuvastatin (Crestor) 5 mg tablet Take 5 mg by mouth once daily. Active amoxicillin (AMOXIL) 500 mg capsule Take 500 mg by mouth three times daily. Active aspirin chewable 81 mg chewable tablet Chew 81 mg by mouth once daily. Active psyllium husk (MetamuciL) 3.4 gram/5.4 gram powd Mix in liquid then take by mouth. Active sennosides (Senna) 8.6 mg tablet Take 17.2 mg by mouth once daily. Active tacrolimus (Prograf) 0.5 mg capsule Take 0.5 mg by mouth every 12 hours. Active FOLIC ACID ORAL Take by mouth. Activ e furosemide (Lasix) 20 mg tablet Take 20 mg by mouth once daily. Active gabapentin (NEURONTIN) 300 mg capsule Take 300 mg by mouth three times daily. Active glipiZIDE (GLUCOTROL) 5 mg tablet Take 5 mg by mouth two times daily. Active HYDROcodone-ac etaminophen (7.5-325 mg/tablet) Take 1 Tablet by mouth every 4 hours if needed for Pain. Max acetaminophen dose: 4000mg in 24 hrs. Active insulin glargine-yfgn, U-100, (Semglee,insul in glargine-yfgn, ) 100 unit/mL injection Inject subcutaneous. Active milk of magnesia (MOM) 400 mg/5 mL suspension Take 30 mL by mouth before bedtime. Active magnesium oxide (MAG-OXIDE ORAL) Take by mouth. Activ e polyethylene glycol (Miralax) 17 g per packet packet Mix 17 g in liquid then take by mouth once daily. Active Social History Tobacco Use Types Packs/Day Years Used Date Smoking Tobacco: Former Cigarettes Q uit: 01/17/2007 Alcohol Use Standard Drinks/Week Comments Not Asked 0 (1 standard drink = 0.6 oz pur e alcohol) Sex and Gender Information Value Date Recorded Sex Assigned at Not on file Legal Sex Male 5:31 AM CURBER Gender Identity Not on file Sexual Orientation Not on file Obstetrics History Last Filed Vital Signs Vital Sign Reading Time Taken Comments Blood Pressure 110/60 06/03/2024 5:00 PM CDT Pulse 122 06/03/2024 5:00 PM CDT Temperature - - Respiratory Rate 20 06/03/2024 5:00 PM CDT Oxygen Saturation 98% 06/03/2024 5:00 PM CDT Inhaled Oxygen Concentration - - Weight 44.3 kg (97 lb 11.2 oz) 06/03/2024 5:00 P M CDT Height 165.1 cm (5' 5) 06/03/2024 5:00 PM CDT Body Mass Index 16.26 06/03/2024 5:00 PM CDT Plan of Treatment Health Maintenance Due Date Last Done Comments COVID-19 vaccine series (#1) 1965 Tdap 1971 Depression screening for age 12+ 1972 HIV for age 15-65 1975 BMI (ht and wt on same day) for age 18+ 1978 Hepatitis C screening for age 18-79 1978 Zoster (shingles) series for age 50+ (1 of 2) 07/13/19 79 Tetanus booster 1980 Colonoscopy through age 75 2005 Lipids for age 45-75 2005 Pneumococcal series for age 50+ (1 of 1 - PCV) 010 RSV vaccine for adults or pr egnancy (1 - Risk 60-74 years 1-dose series) 2020 Influenza Vaccine (#1) 2024 Insurance [facility] Care Teams Transmission Worker Relationship Specialty Start Date End Date Kelly Mendez NP [address] [place] [phone] PCP - General Nurse Practitioner - Family 06/02/24
--- OUTSIDE RECORDS SUMMARY | 2025-02-02 22:48 | XMS_ITS | Encounter Summary ---
Author Organization [facility] Address [address] [place] [address] Care Team Providers Care Steam Clothes Press Operator Name Role Phone Wally Daniel MD Primary Care Provider Unavailable Wally Daniel MD Unavailable Unavai lable No Ref-Primary, Physician Primary Care Provider Tennille Goddard APRN DIE FITTER Unavailable [phone] Tennille Goddard APRN DIE FITTER Unavailable [phone] Beatris Ty [facility] Unavailable [phone] Dov Alston [facility] Unavailable Unavailable Tennille Goddard APRN DIE FITTER Primary Care Provider + Dov Alston [facility] Unavailable Unavailable Dov Alston [facility] Unavailable Unavailable Encounter Details Date Type Department Care Team (Late st Contact Info) Description 02/20/2013 [facility] [address] [address] [employer] He Social History Tobacco Use Types Packs/Day Years [...] on file Legal Sex Male 3:09 AM SENIOR COGNOS DEVELOPER Gender Identity Not on file Sexual Orientation Not on file 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 as of this encounter Plan of Treatment Not on file documented as of this encounter Visit Diagnoses Not on filedocumented in this encounter Care Teams Steam Clothes Press Operator Relationship Specialty Start Date End Date Wally Daniel MD PCP - General 12/17/03 12/08/18 Wally Daniel MD PCP - Assigned PCP 10/16/10 12/14/18 No Ref-Primary, Physician PCP - General 12/09/18 08/17/19 Tennille Goddard APRN DIE FITTER [address] [place] [address] PCP - Assigned PCP 12/15/18 01/21/19 Tennille Goddard APRN DIE FITTER [address] [place] [address] PCP - General Nurse Practitioner - Family 08/18/19 Tennille Goddard APRN DIE FITTER [address] [place] [address] Assigned PCP 12/15/18 01/07/22 Beatris Ty [facility] [address] [place] [address] Pharmacist Pharmacist 04/08/19 01/12/21 Dov Alston [facility] [address] [place] [address] Pharmacist Pharmacist 06/16/19 Dov Alston [facility] [address] [place] [address] Assigned MTM Pharmacist 04/15/22 08/04/22 Dov Alston [facility] [address] [place] [address] Assigned MTM Pharmacist 08/16/22 10/27/22 documented as of this encounter
--- OUTSIDE RECORDS SUMMARY | 2025-02-02 22:48 | XMS_ITS | Encounter Summary ---
Author Organization [facility] Address [address] [place] [address] Care Team Providers Care Crib Pad Maker Name Role Phone Wally Daniel MD Primary Care Provider Unavailable Wally Daniel MD Unavailable Unavai lable No Ref-Primary, Physician Primary Care Provider Tennille Goddard APRN PRODUCT/DEVICE TECHNOLOGIST Unavailable [phone] Tennille Goddard APRN PRODUCT/DEVICE TECHNOLOGIST Unavailable [phone] [facility] Unavailable [phone] Dov Alston [facility] Unavailable Unavailable Tennille Goddard APRN PRODUCT/DEVICE TECHNOLOGIST Primary Care Provider + Dov Alston [facility] Unavailable Unavailable Dov Alston [facility] Unavailable Unavailable Encounter Details Date Type Department Care Team (Late st Contact Info) Description 11/25/2014 MyC Medical Advice [address] [place] [phone] Dov Alston, 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 as of this encounter Plan of Treatment Not on file documented as of this encounter Visit Diagnoses Not on filedocumented in this encounter Care Teams Crib Pad Maker Relationship Specialty Start Date End Date Wally Daniel MD PCP - General 12/17/03 12/08/18 Wally Daniel MD PCP - Assigned PCP 10/16/10 12/14/18 No Ref-Primary, Physician PCP - General 12/09/18 08/17/19 Tennille Goddard APRN PRODUCT/DEVICE TECHNOLOGIST [address] [place], [place] [id number] PCP - Assigned PCP 12/15/18 01/21/19 Tennille Goddard APRN PRODUCT/DEVICE TECHNOLOGIST [address] [place], [place] [phone] PCP - General Nurse Practitioner - Family 08/18/19 Tennille Goddard APRN PRODUCT/DEVICE TECHNOLOGIST [address] [place], [place] [id number] Assigned PCP 12/15/18 01/07/22 [address]ris [address] [facility] [address] [place] [address] Pharmacist Pharmacist 04/08/19 01/12/21 Dov Al[address] [facility] [address] [place] [address] Pharmacist Pharmacist 06/16/19 Dov Al[address] [facility] [address] [place] [address] Assigned MTM Pharmacist 04/15/22 08/04/22 [facility] [address] [place] [address] Assigned MTM Pharmacist 08/16/22 10/27/22 documented as of this encounter
--- OUTSIDE RECORDS SUMMARY | 2025-02-02 22:48 | XMS_ITS | Encounter Summary ---
Author Organization [facility] Address [address] [place] [address] Care Team Providers Care Mitten Sewer Name Role Phone AndreaJuddKellylilia Buchanan APRN C.N.P., D.N.P. Primary Car e Provider Reason for Visit * Reason Onset Date Comments Tacrolimus Adjustment Protocol Liver 12/01/2024 Encounter Details Date Type Department Care Team (Latest Contact Info) Description 12/01/2024 Clinical Communication Jeyson Brown [facility] in [place], [place] [address] [place] [address] Ashly Mata M.SKathrinN., R.N. [address] [place] [address] Tacrolimus Adjustment Protocol Liver Social History Tobacco Use Types Packs/Day Years Used Date Smoking Tobacco: Former Cigarettes Q uit: 2008 Passive Smoke Exposure: Never Smokeless Tobacco: Never Alcohol Use Standard Drinks/Week Comments Not Currently 0 (1 standard drink = 0.6 oz pur e alcohol) last 06/23/22 [facility] Utilities Answer Date Recorded In the past 12 months has e electric, gas, oil, or water [employer] threatened to shut off services in your [...] week 02/04/2023 How often do you attend protestant or protestant serv ices? Patient declined 02/04/2023 Do you belong to any clubs o r organizations such as protestant groups, unions, fraternal or athletic groups, or [...] Answer Date Recorded PHQ-2 Score 6 11/23/2024 [facility] [place] [facility] Occupat [facility] - Occupational Stress [...] AM CDT Legal Sex Male 9:11 PM EXHAUST TENDER Gender Identity na 09/07/2021 10:32 AM CDT Sexual Orientation Choose not to disclose 2020 10:32 AM CDT documented as of this encounter Miscellaneous Notes * Telephone Encounter - Cecelia Andres, D., R.Ph. - 12/01/2024 9:21 AM CST Transplanted Organ and Date:11/10/2023 (Liver) Clinical Assistant: Christy Abad Active Patient Thresholds Lab Low High Effective Since Comment Tacrolimus Level 5 6 04/21/2024 Recent Labs 11/27/24 0944 TACROLIMUS 3.4 L Dose (mg) 3 mg BID Adjustment Per patient This was exactly a 12 hour trough. Current dose of tacrolimus is 3mg morning and 3mg in evening. He missed Sunday as he was back at [facility] getting his wounds cleaned up and redressed because he bled all over Sunday night. So, just completely forgot. He is also taking the antibiotic Cefadroxil 500mg for 7 days. He also started Fosamax taking once every Sunday and has had 2 doses. He had been doing tube feeds taking Birthday Slam formula. This formula made him nauseous after. every feed so the dietitian had him stop of the tube feeds as of Sunday to see if he could consume enough calories by mouth. He has some body aches but this is pretty normal. Patient currently has a G tube to treat severe malnutrition Plan: Patient's missed dose Sunday AM, should not affect the 11/27 level. The changes between tube feeds and eating may be affecting his levels. Increase tacrolimus to 4 mg twice daily. Recheck tacrolimus level in 1 week(s). Updated prescription sent to [facility] UST TENDER * Telephone Encounter - Ashly Mata M.S.N., R.N. - 12/01/2024 8:37 AM EXHAUST TENDER Transplanted Organ and Date: 11/10/2023 (Liver) RN coordinator: Christy Abad Active Patient Thresholds Lab Low High Effective Since Comment Tacrolimus Level 5 6 04/21/2024 Recent Labs 11/27/24 0944 TACROLIMUS 3.4 L Current immunosuppression formulation and dose:IR tacrolimus Was the immunosuppressant dose changed within the last 2 weeks?: No Missed doses in last week: No Vomiting? No Medications changes in last week: Yes Symptoms of toxicity? No Lab Results Component Value Date CREATININE 0.64 (L) 11/27/2024 Pharmacy patient uses for immunosuppression: [facility] Any other pertinent information related to above (please comment on any pertinent answers above)? Per patient This was exactly a 12 hour trough. Current dose of tacrolimus is 3mg morning and 3mg in evening. He missed Sunday as he was back at [facility] getting his wounds cleaned up and redressed because he bled all over Sunday night. So, just completely forgot. He is also taking the antibiotic Cefadroxil 500mg for 7 days. He also started Fosamax taking once every Sunday and has had 2 doses. He had been doing tube feeds taking Birthday Slam formula. This formula made him nauseous after. every feed so the dietitian had him stop of the tube feeds as of Sunday to see if he could consume enough calories by mouth. He has some body aches but this is pretty normal. Patient currently has a G tube to treat severe malnutrition UST TENDER documented in this encounter Plan of Treatment Upcoming Encounters Date Type Department Care Team (Latest Contact Info) Description 02/03/2025 1:00 PM CDT Appointment Department of Radiation Oncology in [address] [address] Kiana Oliver M.D. [address] [place] [address] 02/04/2025 1:00 PM CDT Appointment Department of Radiation Oncology in [address] [address] Kiana Oliver M.D. 200 [place] [address] 02/05/2025 12:45 PM CDT Appointment Department of Radiation Oncology in [address] [address] Kiana Oliver M.D. 200 [place] [address] 02/05/2025 1:00 PM CDT Appointment Department of Radiation Oncology in [address] [address] Kiana Oliver M.D. 200 [place] [address] 02/06/2025 1:00 PM CDT Appointment Department of Radiation Oncology in [place], [place] [address] [place] [address] Kiana Oliver M.D. 200 [place] [address] 02/09/2025 1:00 PM CDT Appointment Department of Radiation Oncology in [place], [place] [address] [place] [phone] Kiana Oliver M.D. [address] [place] [phone] 02/10/2025 1:00 PM CDT Appointment Department of Radiation Oncology in [place], [place] [address] [place] [address] Kiana Oliver M.D. [address] [place] [phone] 02/11/2025 1:00 PM CDT Appointment Department of Radiation Oncology in [place], [place] [address] [place] [phone] Kiana Oliver M.D. [address] [place] [address] 02/12/2025 1:00 PM CDT Appointment Department of Radiation Oncology in [place], [place] [address] [place] [address] Kiana Oliver M.D. [address] [place] [phone] 02/12/2025 1:15 PM CDT Appointment Department of Radiation Oncology in [place], [place] [address] [place] [address] Kiana Oliver M.D. [address] [place] [address] 02/13/2025 1:00 PM CDT Appointment Department of Radiation Oncology in [place], [place] [address] [place] [address] Kiana Oliver M.D. [address] [place] [address] 02/16/2025 7:15 AM CDT Ancillary Procedure Department of Ophthalmology in [place], [place] [address] [place] [phone] Maida Tim O.D. [address] [place] [phone] 02/16/2025 8:00 AM CDT Comprehensive Visit Department of Ophthalmology in [place], [place] [address] [place] [phone] Desi Rasmussen O.D. [address] [place] [phone] 02/23/2025 8:15 AM CDT Clinical Communication Virtual Review in [place], [place] 200 [place] [address] 02/24/2025 9:40 AM CDT Office Visit Department of Dermatology in [address] [address] Felipe Stewart M.D. [address] [place] [address] 02/24/2025 10:00 AM CDT [facility] [place], [place] [address] [place] [phone] Aide Welch P.A.-C., M.S. [address] [place] [phone] 03/03/2025 9:00 AM CDT Telemedicine Department of Nutrition and Diabetes Education in [place], [place] [address] [place] [phone] Katelin Alcaraz APRN C.N.P., D.N.P. [address] [place] [phone] Mansi Ross M.S., RDN, LD [address] [place] [phone] documented as of this encounter Visit Diagnoses Diagnosis Transplant Liver (HCC) Medication Therapy Nursing Home Not Anticoagulant documented in this encounter Additional Health Concerns Infection Onset Date Last Indicated Resolved Time Protective Environment 11/10/2023 11/10/2023 Assessment Noted Time PHQ-9 Depression Total Score: 19 025 12:23 PM EXHAUST TENDER documented as of this encounter Care Teams Mitten Sewer Relationship Specialty Start Date End Date Kelly Mendez APRN, C.N.P., D.N.P. [address] [place] [address] PCP - General Internal Medicine 12[facility]23 [facility] [place] [facility] Laboratory Medicine 02/26/23 documented as of this encounter
--- OUTSIDE RECORDS SUMMARY | 2025-02-02 22:48 | XMS_ITS | Encounter Summary ---
Author Organization [facility] Address [address] [place] [address] Care Team Providers Care Pizzamaker Name Role Phone Kelly Mendez APRN C.N.P., D.N.P. Primary Car e Provider Encounter Details Date Type Department Care Team (Latest Contact Info) Description 11/06/2024 Intake [facility] Social History Tobacco Use Types Packs/Day Years Used Date Smoking Tobacco: Former Cigarettes Q uit: 2008 Passive Smoke Exposure: Never Smokeless Tobacco: Never Alcohol Use Standard Drinks/Week Comments Not Currently 0 (1 standard drink = 0.6 oz pur e alcohol) last 06/23/22 [facility] Utilities Answer Date Recorded In the past 12 months has [facility] [employer], gas, oil, or water [employer] threatened to shut off services in your [...] week 02/04/2023 How often do you attend uatsdin or cheondoism serv ices? Patient declined 02/04/2023 Do you belong to any clubs o r organizations such as uatsdin groups, unions, fraternal or athletic groups, or [...] 02/04/2023 PHQ-2 Answer Date Recorded PHQ-2 Score 5 04/16/2024 [facility] Occupat ional Health - Occupational [...] Recor ded PHQ-9 Total Score (max 27) 10 04/20 Nutrition Answer Date Recorded On average, how [...] AM CDT Legal Sex Male 9:11 PM RN TRIAGE Gender Identity na 09/07/2021 10:32 AM CDT Sexual Orientation Choose not to disclose 2020 10:32 AM CDT documented as of this encounter Plan of Treatment Upcoming Encounters Date Type Department Care Team (Latest Contact Info) Description 02/03/2025 1:00 PM CDT Appointment Department of Radiation Oncology in [address] [address] Kiana Oliver M.D. 200 [place] [address] 02/04/2025 1:00 PM CDT Appointment Department of Radiation Oncology in [place] [address] [place] [address] Kiana Oliver M.D. 200 [place] [address] 02/05/2025 12:45 PM CDT Appointment Department of Radiation Oncology in [address] [address] Kiana Oliver M.D. [address] [place] [phone] 02/05/2025 1:00 PM CDT Appointment Department of Radiation Oncology in [place], [place] [address] [place] [address] Kiana Oliver M.D. [address] [place] [phone] 02/06/2025 1:00 PM CDT Appointment Department of Radiation Oncology in [address] [address] Kiana Oliver M.D. [address] [place] [address] 02/09/2025 1:00 PM CDT Appointment Department of Radiation Oncology in [place], [place] [address] [place] [phone] Kiana Oliver M.D. [address] [place] [phone] 02/10/2025 1:00 PM CDT Appointment Department of Radiation Oncology in [place], [place] [address] [place] [address] Kiana Oliver M.D. [address] [place] [phone] 02/11/2025 1:00 PM CDT Appointment Department of Radiation Oncology in [place], [place] [address] [place] [address] Kiana Oliver M.D. [address] [place] [address] 02/12/2025 1:00 PM CDT Appointment Department of Radiation Oncology in [place], [place] [address] [place] [phone] Kiana Oliver M.D. [address] [place] [phone] 02/12/2025 1:15 PM CDT Appointment Department of Radiation Oncology in [place], [place] [address] [place] [phone] Kiana Oliver M.D. [address] [place] [phone] 02/13/2025 1:00 PM CDT Appointment Department of Radiation Oncology in [place], [place] [address] [place] [address] Kiana Oliver M.D. [address] [place] [phone] 02/16/2025 7:15 AM CDT Ancillary Procedure Department of Ophthalmology in [place], [place] [address] [place] [phone] Maida Tim O.D. [address] [place] [phone] 02/16/2025 8:00 AM CDT Comprehensive Visit Department of Ophthalmology in [place], [place] [address] [place] [phone] Desi Rasmussen O.D. [address] [place] [phone] 02/23/2025 8:15 AM CDT Clinical Communication Virtual Review in [place], [place] 200 [place] [address] 02/24/2025 9:40 AM CDT Office Visit Department of Dermatology in [place], [place] [address] [place] [address] Felipe Stewart M.D. [address] [place] [address] 02/24/2025 10:00 AM CDT Office [facility] in [place], [place] [address] [place] [address] Aide Welch P.A.-C., M.S. [address] [place] [phone] 03/03/2025 9:00 AM CDT Telemedicine Department of Nutrition and Diabetes Education in [place], [place] [address] [place] [address] Katelin Alcaraz APRN, C.N.P., D.N.P. [address] [place] [phone] Mansi Ross M.S., RDN, LD [address] [place] [phone] documented as of this encounter Visit Diagnoses Not on filedocumented in this encounter Additional Health Concerns Infection Onset Date Last Indicated Resolved Time Protective Environment 11/10/2023 11/10/2023 Assessment Noted Time PHQ-9 Depression Total Score: 10 023 10:35 AM CDT documented as of this encounter Care Teams Pizzamaker Relationship Specialty Start Date End Date Kelly Mendez APRN, C.N.P., D.N.P. [address] [place] [address] PCP - General Internal Medicine 12/05/[address] [place] Rhea Little [facility] lab Laboratory Medicine 02/26/23 documented as of this encounter
--- OUTSIDE RECORDS SUMMARY | 2025-02-02 22:48 | XMS_ITS | Encounter Summary ---
Author Organization [facility] Address [address] [place] [address] Care Team Providers Care Content Coordinator Name Role Phone Wally Daniel MD Primary Care Provider Unavailable Wally Daniel MD Unavailable Unavai lable No Ref-Primary, Physician Primary Care Provider Tennille Goddard APRN LEATHER GOODS MAKER Unavailable [phone] Tennille Goddard APRN LEATHER GOODS MAKER Unavailable [phone] Beatris Ty [facility] Unavailable [phone] Dov Alston [facility] Unavailable Unavailable Tennille Goddard APRN LEATHER GOODS MAKER Primary Care Provider + Dov Alston [facility] Unavailable Unavailable Dov Alston RP Unavailable Unavailable Encounter Details Date Type Department Care Team (Late st Contact Info) Description 10/23/2016 [facility] Medical Advice [address] [address] Wally Daniel MD Social History Tobacco Use Types Packs/Day Years [...] on file 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 Gender Identity Not on file Sexual Orientation Not on file 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 as of this encounter Plan of Treatment Not on file documented as of this encounter Visit Diagnoses Not on filedocumented in this encounter Additional Health Concerns Assessment Noted Time PHQ-9 Depression Total Score: 15 016 7:16 AM CDT documented as of this encounter Care Teams Content Coordinator Relationship Specialty Start Date End Date Wally Daniel MD PCP - General 12/17/03 12/08/18 Wally Daniel MD PCP - Assigned PCP 10/16/10 12/14/18 No Ref-Primary, Physician PCP - General 12/09/18 08/17/19 Tennille Goddard APRN LEATHER GOODS MAKER [address] [address] PCP - Assigned PCP 12/15/18 01/21/19 Tennille Goddard APRN LEATHER GOODS MAKER [address] [place] [address] PCP - General Nurse Practitioner - Family 08/18/19 Tennille Goddard APRN LEATHER GOODS MAKER [address] [address] [place] [address] Assigned PCP 12/15/18 01/07/22 Beatris Ty [facility] [address] [place] [address] Pharmacist Pharmacist 04/08/19 01/12/21 Dov Alston [facility] [address] [place] [address] Pharmacist Pharmacist 06/16/19 Dov Alston [facility] [address] [place] [address] Assigned MTM Pharmacist 04/15/22 08/04/22 Dov Alston [facility] [address] [place] [address] Assigned [place] Pharmacist 08/16/22 10/27/22 documented as of this encounter
--- OUTSIDE RECORDS SUMMARY | 2025-02-02 22:48 | XMS_ITS | Encounter Summary ---
Author Organization [place] [facility] Address [address] [place] [address] Care Team Providers Care Outdoor Adventure Leader Name Role Phone No Ref-Primary, Physician Primary Care Provider Tennille Goddard APRN MOLDING MACHINE SETTER Unavailable [phone] Beatris Ty [facility] Unavailable [phone] Dov Alston [facility] Unavailable Unavailable Tennille Goddard APRN MOLDING MACHINE SETTER Primary Care Provider + Dov Alston [facility] Unavailable Unavailable Dov Alston [facility] Unavailable Unavailable Encounter Details Date Type Department Care Team (Late st Contact Info) Description 04/22/2019 [facility] [address] [place] [phone] Antonia Rahman, RN Social History Tobacco Use Types Packs/Day Years Used Date Smoking Tobacco: Former Cigarettes 1.5 10 0 06/07/2000 - 06/07/2010 Smokeless Tobacco: Former Comments:1 pk x 15 yrs Alcohol Use Standard Drinks/Week Comments Yes 0 (1 standard drink = 0.6 oz pur e alcohol) twice a wk PHQ-2 Answer Date Recorded PHQ-2 Score 0 01/07/2019 Sex and Gender Information Value Date Recorded Sex Assigned at Not on file 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 Sex Male 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 Gender Identity Not on file Sexual Orientation Not on file 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 as of this encounter Plan of Treatment Not on file documented as of this encounter Visit Diagnoses Not on filedocumented in this encounter Additional Health Concerns Assessment Noted Time PHQ-9 Depression Total Score: 0 01/07/20 6:53 PM WINDOWS VMWARE ENGINEER documented as of this encounter Care Teams Outdoor Adventure Leader Relationship Specialty Start Date End Date No Ref-Primary, Physician PCP - General 12/09/18 08/17/19 Tennille Goddard APRN MOLDING MACHINE SETTER [address] [address] PCP - General Nurse Practitioner - Family 08/18/19 Tennille Goddard APRN MOLDING MACHINE SETTER [address] [place] [address] Assigned PCP 12/15/18 01/07/22 Beatris Ty [facility] [address] [place] [address] Pharmacist Pharmacist 04/08/19 01/12/21 Dov Alston [facility] [address] [facility] [place] [address] Pharmacist Pharmacist 06/16/19 Dov Alston [facility] [address] [address] Assigned MTM Pharmacist 04/15/22 08/04/22 Dov Alston [facility] [address] [place] [address] Assigned MTM Pharmacist 08/16/22 10/27/22 documented as of this encounter
--- OUTSIDE RECORDS SUMMARY | 2025-02-02 22:48 | XMS_ITS | Encounter Summary ---
Author Organization [facility] Address [address] [place] [address] Care Team Providers Care Director Of Sports Medicine Name Role Phone Wally Daniel MD Primary Care Provider Unavailable Wally Daniel MD Unavailable Unavai lable No Ref-Primary, Physician Primary Care Provider Tennille Goddard APRN [employer] Unavailable [phone] Tennille Goddard APRN [employer] Unavailable [phone] Beatris Ty [facility] Unavailable [phone] Dov Alston [facility] Unavailable Unavailable Tennille Goddard APRN SU[employer]INTENDENT [employer]ANT Primary Care Provider + Dov Alston RP Unavailable Unavailable Dov Alston RPH Unavailable Unavailable Reason for Visit * Reason Comments Health Coaching - [facility] - Instrument And Control Technician Only Encounter Details Date Type Department Care Team (Late st Contact Info) Description 05/06/2013 Abstract M [address] [id number] Wally Daniel MD Social History [...] on file 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 Gender Identity Not on file Sexual Orientation Not on file 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 as of this encounter Plan of Treatment Not on file documented as of this encounter Visit Diagnoses Not on filedocumented in this encounter Care Teams Director Of Sports Medicine Relationship Specialty Start Date End Date Wally Daniel MD PCP - General 12/17/03 12/08/18 Wally Daniel MD PCP - Assigned PCP 10/16/10 12/14/18 No Ref-Primary, Physician PCP - General 12/09/18 08/17/19 Tennille Goddard APRN [employer] [address] [place] [place] [id number] PCP - Assigned PCP 12/15/18 01/21/19 Tennille Goddard APRN [employer] [address] [place], [place] [id number] PCP - General Nurse Practitioner - Family 08/18/19 Tennille Goddard APRN [employer] [address] [place] [place], [place] [id number] Assigned PCP 12/15/18 01/07/22 Beatris Ty [facility] [address] [place] [address] Pharmacist Pharmacist 04/08/19 01/12/21 Dov Alston [facility] [address] [place] [address] Pharmacist Pharmacist 06/16/19 Dov Alston [facility] [address] [place] [address] Assigned MTM Pharmacist 04/15/22 08/04/22 [facility] [address] [place] [address] Assigned MTM Pharmacist 08/16/22 10/27/22 documented as of this encounter
--- OUTSIDE RECORDS SUMMARY | 2025-02-02 22:48 | XMS_ITS | Encounter Summary ---
Author Organization [facility] Address [address] [place] [address] Care Team Providers Care Battery Assembler Dry Cell Name Role Phone Wally Daniel MD Primary Care Provider Unavailable Wally Daniel MD Unavailable Unavai lable No Ref-Primary, Physician Primary Care Provider Tennille Goddard APRN BOW MAKING MACHINE OPERATOR Unavailable [phone] Tennille Goddard APRN BOW MAKING MACHINE OPERATOR Unavailable [phone] Beatris Ty [facility] Unavailable [phone] Dov Alston [facility] Unavailable Unavailable Tennille Goddard APRN BOW MAKING MACHINE OPERATOR Primary Care Provider + Dov Alston [facility] Unavailable Unavailable Dov Alston [facility] Unavailable Unavailable Encounter Details Date Type Department Care Team (Late st Contact Info) Description 08/07/2016 MyC Medical Advice [address] [place] [id number] Macrina Davidson [facility] Social History Tobacco Use Types Packs/Day Years [...] on file 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 Gender Identity Not on file Sexual Orientation [...] documented as of this encounter Care Teams Battery Assembler Dry Cell Relationship Specialty Start Date End Date Wally Daniel MD PCP - General 12/17/03 12/08/18 Wally Daniel MD PCP - Assigned PCP 10/16/10 12/14/18 No Ref-Primary, Physician PCP - General 12/09/18 08/17/19 Tennille Goddard APRN BOW MAKING MACHINE OPERATOR [address] [place] [address] PCP - Assigned PCP 12/15/18 01/21/19 Tennille Goddard APRN BOW MAKING MACHINE OPERATOR [address] [place] [address] PCP - General Nurse Practitioner - Family 08/18/19 Tennille Goddard APRN BOW MAKING MACHINE OPERATOR [address] [place] [address] Assigned PCP 12/15/18 01/07/22 Beatris Ty [facility] [address] [place] [address] Pharmacist Pharmacist 04/08/19 01/12/21 Dov Alston [facility] [address] [place] [address] Pharmacist Pharmacist 06/16/19 Dov Alston [facility] [address] [place] [address] Assigned MTM Pharmacist 04/15/22 08/04/22 Dov Alston [facility] [address] [place] [address] Assigned MTM Pharmacist 08/16/22 10/27/22 documented as of this encounter
--- OUTSIDE RECORDS SUMMARY | 2025-02-02 22:48 | XMS_ITS | Clinical Summary ---
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 Primary Car e Provider Source Comments Patient records contain information from all sites at [facility]. For routine questions regarding patient records, call [phone] during business hours, M-F 8:00 AM - 5:00 PM Central Time. Record requests for emergency care only can be directed to [phone] at any time.[facility] Allergies Active Allergy Reactions Criticality Noted Date Comments Lactulose GI intolerance 03/26/2023 Metformin GI intolerance 08/16/2022 On LOW DOSE ER Mirtazapine Hallucinations High 10/01/2024 Extreme skin sensitivity, hallucinations, vivid alarming dreams and other related sleep problems. Medications * This document contains information received from the source organization and may not represent a complete record from that organization. amitriptyline 2 % gabapentin 5 % ketamine 5 % in lipoderm Apply topically daily. Apply to lower back for on a daily basis. 60 g 2 08/15/20 23 4:37 PM CDT 023 Active Additional Information Patient not taking.Reported on 01/14/2025 acetaminophen (TYLENOL) 500 mg tablet Take 1 tablet (500 mg total) by mouth every 6 (six) hours as needed for pain. 023 Active blood sugar diagnostic strips 2 test daily. 200 test 3 12/12/19 24 11:05 AM [employer] [employer] 024 Active blood-glucose meter misc Test as directed for diabetes control. 1 each 12/12/19 24 11:05 AM [employer] [employer] 024 Active sennosides-docusa te sodium (Stool Softener-Stimulan t Laxat) 8.6-50 mg per tabletIndications :Transplant Liver (HCC),Medication Therapy Senior Care Not Anticoagulant,Enrique g Induced Constipation Take 1 tablet by mouth 2 (two) times a day. 100 tablet 02/22/20 5:09 PM CDT 024 Active gabapentin (NEURONTIN) 300 mg capsule Take 2 capsules (600 mg total) by mouth at bedtime. Active amoxicillin (AmoxiL) 500 mg capsule Take 4 caps (2000 mg) 1 hour prior to invasive dental procedure. 4 capsule 11 Active Additional Information Patient not taking.Reported on 01/14/2025 rosuvastatin (Crestor) 5 mg tablet Take 1 tablet (5 mg total) by mouth daily. 90 tablet 3 12/29/19 25 1:25 PM [facility] 024 Active folic acid 1 mg tablet Take 1 tablet (1 mg total) by mouth daily. 90 tablet 3 10/29/20 24 11:46 AM [facility] 024 Active ondansetron ODT (Zofran-ODT) 4 mg disintegrating tablet Dissolve 1 tablet (4 mg total) in the mouth every 8 (eight) hours as needed for nausea or vomiting. 30 tablet 3 11/26/19 25 3:29 PM [facility] 024 Active aspirin [address] tablet Take 1 tablet (81 mg total) by mouth daily. Start taking from 11/15/2023 120 tablet 07/11/20 24 10:25 AM CDT 024 Active calcium citrate-vitamin D3 (Citracal + D3) 315 mg-5 mcg (200 Unit) per tablet Take 1 tablet by mouth 2 (two) times a day with meals. 200 tablet 3 024 2024 Active Additional Information Patient not taking.Reported on 01/14/2025 alendronate (Fosamax) 35 mg tablet Take 1 tablet (35 mg total) by mouth once a week. Take with 8oz of water, on an empty stomach. Remain upright for 30min. 12 tablet 20 01/27/20 25 10:52 AM CDT 2028 Active rOPINIRole (Requip) 0.25 mg tabletIndications :Restless Leg Syndrome Take 2 tablets (0.5 mg total) by mouth at bedtime as needed (RLS). 30 tablet 11/26/19 25 3:29 PM [employer] [employer] Active famotidine (Pepcid) 20 mg tablet Take 1 tablet (20 mg total) by mouth 2 (two) times a day as needed for heartburn. 60 tablet 1 11/14/20 24 12:18 PM [employer] Active insulin lispro (HumaLOG KwikPen Insulin) 100 unit/mL [...] ED or call 911. 15 mL 2 11/14/20 24 12:18 PM [employer] [employer] Active Additional Information Patient not taking.Reported on 01/14/2025 pen needle, diabetic (BD Ultra-Fine Short Pen Needle) 31 gauge x 5/16 needle Use 3 times a day 300 each 1 11/14/20 24 12:18 PM [employer] Active HYDROcodone-aceta minophen ([place]) 7.5-325 mg per tabletIndications :Chronic Pain/Nonacute Pain Take 1 tablet by mouth every 8 (eight) hours as needed for moderate pain or score 4-6 of 10. Indication: Chronic Pain/Nonacute Pain. 60 tablet Active fluoride, sodium, (PreviDent) 1.1 % gel dental gelIndications:pr evention of dental caries Apply 1 Application to the mouth or throat daily Indications: tooth decay prevention. Floss, brush, baking soda rinse. Apply thin gel ribbon to trays wear 5 minutes. Remove trays expectorate excess gel. No eating drinking or rinsing for 30 min. 100 g 12 025 2025 Active Additional Information Patient not taking.Reported on 01/14/2025 tacrolimus (Prograf) 1 mg capsuleIndication s:Transplant Liver (HCC),Medication Therapy Senior Care Not Anticoagulant Take 2 capsules (2 mg total) by mouth 2 (two) times a day. 01/01 dose change 360 capsule 3 025 2025 Active blood-glucose sensor (FreeStyle Apryl 3 Plus Sensor) deviceIndications :Diabetes Mellitus Type 2 Hyperglycemia (HCC) 1 each every 15 (fifteen) days. 6 each 3 01/31/20 25 4:04 PM CDT 025 2025 Active insulin glargine-yfgn (Semglee,insulin glarg-yfgn,Pen) 100 unit/mL (3 mL) penIndications:Di abetes Mellitus Type 2 Hyperglycemia (HCC) Inject 20 Units under the skin every morning. 18 mL 3 02/03/20 25 9:47 AM CDT 025 Active -pwbixwr llose (Artificial Tears) ophthalmic solution 1 drop 3 (three) times a day as needed for dry eyes. Active mirtazapine (Remeron) 15 mg tablet Take 1 tablet (15 mg total) by mouth at bedtime. 90 tablet 3 07/11/20 24 10:25 AM CDT 024 2023 Discontinued(T herapy completed) blood-glucose sensor (FreeStyle Apryl 3 Sensor) deviceIndications :Diabetes Mellitus Type 2 Hyperglycemia (HCC) 1 each every 14 (fourteen) days. 6 each 3 11/26/19 25 3:29 PM [employer] 024 2024 Discontinued insulin glargine 100 unit/mL (3 mL) pen Inject 12 Units under the skin every morning. Pharmacy select brand per patient insurance/pref erence. 2024 Discontinued(A lternate therapy) insulin glargine-yfgn (Semglee,insulin glarg-yfgn,Pen) 100 unit/mL (3 mL) penIndications:Di abetes Mellitus Type 2 Hyperglycemia (HCC) Inject 12-24 Units under the skin every morning. Start with 16 units every morning, change as directed. 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 05/21/2024 Block Atrioventricular Complete 05/21/2024 Pacemaker Cardiac Status Post 05/21/2024 Chronic Diastolic (Congestive) Heart Failure 12/2023 Atherosclerotic Heart Diseas e Of [place] Coronary Artery Without Angina Pectoris 04/24/2024 Shortness Of Breath 04/08/2024 Transplant Liver 11/13/2023 Liver Alcoholic Disease 11/10/2023 Abdominal Pain 09/30/2023 Senior Care (Current) Anticoagulant Treatment 09/19 Monitoring For Therapeutic Drug Therapy 09/28/20 Pain Back Lumbar 08/14/2023 Pain Back 08/10/2023 Hypotension 07/16/2023 Hemorrhage Gastrointestinal 07/16/2023 Insomnia 07/03/2023 Pretransplant Recipient Evaluation Exam 03/20/20 Moderate Or Severe Use Disor ruperto (Dependence) Alcohol Remission 03/20/2023 Nicotine Dependence Unspecified 03/20/2023 Esophageal Varices Without Bleeding 08/07/2022 Deficiency Vitamin A 07/10/2022 Portal Vein Thrombosis 06/25/2022 Diabetes Mellitus Type 2 Hyperglycemia 2 Alcoholic Cirrhosis Of Liver With Ascites 2020 Stenosis Aortic Valve Acquired 08/15/2021 Anemia 07/16/2021 Deficiency Vitamin B12 07/16/2021 Hypertension Essential Primary 10/24/2016 Restless Leg Syndrome 05/31/2016 Deficiency Vitamin D 02/19/2011 Hyperlipidemia 12/05/2010 Gout 12/17/2003 Overview (09/05/2021): Problem list name updated by automated process. Provider to review Resolved Problems Problem Noted Date Diagnosed Date Resolved Date End Stage Liver Disease 11/09/202311/19 Diabetes Mellitus Type 2 Ulcer Foot 04/30/2023 07/03/2023 Hepatic Encephalopathy Without Coma 08/07/2022 12/05/2023 Hematemesis 07/16/2021 07/03/2023 Encounters Date Type Department Care Team Description 02/02/2025 11:43 AM CDT Hospital Encounter Department of Radiation Oncology in [address] [phone] Kiana Oliver M.D. 01/30/2025 3:20 PM CDT Comprehensive Visit Department of Ophthalmology in [place] [address] [place] [address] Kiana Oliver M.D. Schornack, Muriel M, O.D. Dry Eye Syndrome Bilateral (Primary Dx); Dysfunction Meibomian Gland Right; Dysfunction Meibomian Gland Left; Diabetes Mellitus Type 2 Hyperglycemia (HCC); Refraction Disorder 01/30/2025 10:24 AM CDT - 01/30/2025 11:59 PM CDT Hospital Encounter Department of Laboratory Medicine in [place], [place] [address] [place] [address] Deann Zhu, MARCUS, C.N.P., M.S. Transplant Liver (HCC); Medication Therapy Doctor Of Osteopathy Not Anticoagulant; Immunodeficiency Due To Drugs (HCC); Moderate Or Severe Use Disorder (Dependence) Alcohol Remission (HCC) Discharge Disposition: Home or Self Care 01/30/2025 8:45 AM CDT Hospital Encounter Department of Radiation Oncology in [address] [address] Kiana Oliver M.D. 01/29/2025 12:42 PM CDT - 01/29/2025 2:31 PM CDT Hospital Encounter Department of Radiation Oncology in [address] [address] Kiana Oliver M.D. 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 01/29/2025 12:42 PM CDT Hospital Encounter Department of Radiation Oncology in [address] [address] Kiana Oliver M.D. 01/28/2025 12:49 PM CDT Hospital Encounter Department of Radiation Oncology in [address] [address] Kiana Oliver M.D. 01/28/2025 Refill Division of Endocrinology in [place], [place] [address] [place] [address] Bryson Lr M.D. [facility] Refill 01/27/2025 12:36 PM CDT Hospital Encounter Department of Radiation Oncology in [address] [address] Kiana Oliver M.D. 01/26/2025 12:46 PM CDT Hospital Encounter Department of Radiation Oncology in [address] [address] Kiana Oliver M.D. 01/23/2025 12:40 PM [employer]UCATION Hospital Encounter Department of Radiation Oncology in [address] [address] Kiana Oliver M.D. 01/22/2025 12:25 PM INSTRUCTOR PH[employer]ICAL EDUCATION - 01/22/2025 4:49 PM [employer]UCATION Hospital Encounter Department of Radiation Oncology in [address] [address] Kiana Oliver M.D. 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 01/22/2025 12:20 PM [employer] Hospital Encounter Department of Radiation Oncology in [address] [address] Kiana Oliver M.D. 01/21/2025 12:17 PM [employer]UCATION Hospital Encounter Department of Radiation Oncology in [address] [address] Kiana Agudelo M.D. 01/20/2025 12:18 PM [employer]UCATION Hospital Encounter Department of Radiation Oncology in [address] [address] Kiana Oliver M.D. 01/19/2025 2:45 PM [employer]UCATION Telemedicine [facility] Transplantation and Clinical Regeneration in [place], [place] [address] [place] [address] Aide Welch P.A.-C., MaliniSJayda Will M.D. Transplant Liver (HCC); Medication Therapy Doctor Of Osteopathy Not Anticoagulant 01/19/2025 12:24 PM [employer]UC[employer] Hospital Encounter Department of Radiation Oncology in [address] [address] Kiana Oliver M.D. 01/19/2025 Orders Only [facility] Transplantation and Clinical Regeneration in [place], [place] [address] [place] [address] Christy Abad R.N., C.C.T.CKathrin Transplant Liver (HCC) (Primary Dx); Medication Therapy Doctor Of Osteopathy Not Anticoagulant 01/16/2025 12:21 PM [employer]UCATION Hospital Encounter Department of Radiation Oncology in [address] [address] Kiana Oliver M.D. 01/15/2025 1:35 PM [employer]ICAL [employer]UCATION Ancillary Procedure Department of Oncology 01/15/2025 12:25 PM [employer]CTOR PH[employer]ICAL EDUCATION - 01/15/2025 3:43 PM [employer] PH[employer]ICAL [employer]UCATION Hospital Encounter Department of Radiation Oncology in [address] [address] Kiana Oliver M.D. Dry Eye Syndrome Left (Primary Dx); 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 01/15/2025 12:25 PM INSTRUCTOR PHYSICAL EDUCATION Hospital Encounter Department of Radiation Oncology in [address] [address] Kiana Oliver M.D. 01/15/2025 11:00 AM [employer]UCATION Telemedicine Department of Nutrition and Diabetes Education in [place], [place] [address] [place] [address] Katelin Alcaraz APRN, C.N.P., D.N.P. Mansi Ross M.S., RDN, LD Malnutrition Severe Protein-Calorie (HCC) (Primary Dx); Abdominal Pain 01/14/2025 12:31 PM [employer] EDUCATION - 01/14/2025 1:35 PM [employer]STRUCTOR PH[employer]ICAL EDUCATION Hospital Encounter Department of Radiation Oncology in [address] [address] Kiana Oliver M.D. Moorhouse, Alexis E RGeetha 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 01/14/2025 12:26 PM INSTRUCTOR PHYSICAL EDUCATION Hospital Encounter Department of Radiation Oncology in [address] [address] Kiana Oliver M.D. 01/13/2025 12:13 PM IN[employer]CTOR PH[employer]ICAL EDUCATION Hospital Encounter Department of Radiation Oncology in [address] [address] Kiana Oliver M.D. 01/12/2025 12:12 PM INSTRUCTOR PHYSICAL EDUCATION Hospital Encounter Department of Radiation Oncology in [address] [address] Kiana Oliver M.D. 01/09/2025 12:37 PM INSTRUCTOR PHYSICAL EDUCATION Hospital Encounter Department of Radiation Oncology in [address] [address] Kiana Oliver M.D. 01/09/2025 Clinical Communication [facility] in [place], [place] [address] [place] [address] Christy Abad R.N., C.C.T.C. Labs Only 01/08/2025 12:32 PM [employer]STRU[employer]ICAL EDUCATION Hospital Encounter Department of Radiation Oncology in [address] [address] Kiana Oliver M.D. 01/08/2025 9:50 AM INSTRUCTOR PHYSICAL EDUCATION - 01/08/2025 12:31 PM INSTRUCTOR PHYSICAL EDUCATION Hospital Encounter Department of Laboratory Medicine in [address] [address] Deann Zhu APRN, C.N.P., M.S. Transplant Liver (HCC); Medication Therapy Doctor Of Osteopathy Not Anticoagulant; Immunodeficiency Due To Drugs (HCC); Moderate Or Severe Use Disorder (Dependence) Alcohol Remission (HCC) Discharge Disposition: Home or Self Care 01/07/2025 12:56 PM IN[employer]CTOR PH[employer]ICAL EDUCATION - 01/07/2025 3:32 PM INSTRUCTOR PH[employer]ICAL [employer]UCATION Hospital Encounter Department of Radiation Oncology in [address] [address] Nasir Joseph M.D. 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 01/07/2025 12:56 PM INSTRUCTOR PHYSICAL EDUCATION Hospital Encounter Department of Radiation Oncology in [address] [address] Kiana Oliver M.D. 01/06/2025 12:37 PM INSTRUCTOR PHYSICAL EDUCATION Hospital Encounter Department of Radiation Oncology in [address] [address] Kiana Oliver M.D. 01/05/2025 1:12 PM INSTRUCTOR PHYSICAL EDUCATION Hospital Encounter Department of Radiation Oncology in [address] [address] Kiana Oliver M.D. 01/01/2025 11:00 AM [facility] Telemedicine Division of Endocrinology in [place], [place] [address] [place] [address] Katelin Alcaraz APRN, C.N.P., D.N.P. Dietary Counseling And Surveillance For Enteral Nutrition 12/31/2024 Clinical Communication Department of Internal Medicine in [place], [place] [address] [place] [address] Kelly Mendez APRN C.N.P., D.N.P. [facility] Form ([facility] - [id number]) 12/30/2024 Clinical Communication [facility] for Transplantation and Clinical Regeneration in [place], [place] [address] [place] [address] Christy Abad R.N., C.C.T.C. Labs Only 12/30/2024 Clinical Communication [facility] Transplantation and Clinical Regeneration in [place], [place] [address] [place] [phone] Aide Welch P.A.-C., M.S. Appt Request (Pacemaker scheduling) 12/26/2024 9:50 AM [employer]UCATION - 12/26/2024 11:59 PM [employer]STRUCTOR PH[employer]ICAL EDUCATION Hospital Encounter Department of Laboratory Medicine in [place], [place] [address] [place] [address] Deann Zhu APRN C.N.P., M.S. Transplant Liver (HCC); Medication Therapy Senior Care Not Anticoagulant; Immunodeficiency Due To Drugs (HCC); Moderate Or Severe Use Disorder (Dependence) Alcohol Remission (HCC) Discharge Disposition: Home or Self Care 12/25/2024 Orders Only Department of Cardiovascular Medicine in [place], [place] [address] [place] [address] Caisson Worker, Aneudy Rubio 12/25/2024 Orders Only Department of Radiation Oncology in [address] [address] Kiana Oliver M.D. Malignant Neoplasm Of Face Squamous Cell (Primary Dx) 12/23/2024 12:48 PM [employer]CTOR PH[employer]ICAL EDUCATION - 12/23/2024 4:19 PM INSTRUCTOR PH[employer]ICAL EDUCATION Hospital Encounter Department of Radiation Oncology in [address] [address] Kiana Oliver M.D. 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 12/23/2024 12:09 PM INSTRUCTOR PHYSICAL EDUCATION - 12/23/2024 12:47 PM INSTRUCTOR PHYSICAL EDUCATION Hospital Encounter Department of Radiation Oncology in [place], [place] [address] [place] [address] Kiana Oliver M.D. 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 (Primary Dx) 12/19/2024 9:30 AM IN[employer]CTOR [employer]ICAL EDUCATION Office Visit Department of Dermatology in [place], [place] [address] [place] [phone] Elsi Goldsmith M.D. Malignant Neoplasm Of Face Squamous Cell 12/19/2024 Ancillary Procedure Department of Dermatology 12/18/2024 2:15 PM INSTRUCTOR PH[employer]ICAL EDUCATION Comprehensive Visit Department of Dental Specialties in [place], [place] [address] [place] [phone] Ni Waite D.D.SKathrin 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 12/17/2024 2:00 PM [employer]CTOR [employer]ICAL EDUCATION Comprehensive Visit Division of Endocrinology in [place], [place] [address] [place] [phone] Jake Ellington M.D. Katelin Alcaraz, MARCUS, C.N.P., D.N.P. Dietary Counseling And Surveillance For Enteral Nutrition (Primary Dx); Malnutrition Severe Protein-Calorie (HCC); Transplant Liver (HCC); Percutaneous Endoscopic Gastrostomy (HCC) 12/17/2024 1:00 PM [employer]STRU[employer]ICAL EDUCATION Clinical Support Division of Endocrinology in [address] [address] Jake Ellington M.D. Halie Lewis, R.Allison. Maddison Burgos, R.Allison. Malnutrition Severe Protein-Calorie (HCC); Transplant Liver (HCC); Percutaneous Endoscopic Gastrostomy (HCC) 12/15/2024 1:00 PM INSTRUCTOR PHYSICAL EDUCATION Virtual Visit Jeyson milan [facility] for Transplantation and Clinical Regeneration in [place], [place] [address] [place] [phone] Bryson Lr M.D. Mavis Aguilar R.N., CDE Diabetes Mellitus Type 2 (HCC) 12/15/2024 Clinical Communication Department of Dental Specialties in [place], [place] [address] [place] [address] [place] [address] Ni Waite D.D.S. 12/12/2024 11:00 AM [employer] Telemedicine Department of Nutrition and Diabetes Education in [place], [place] [address] [place] [address] Bryson Lr M.D. Shania Pickens M.S., RDN, LD Transplant Liver (HCC) (Primary Dx); Malnutrition Severe Protein-Calorie (HCC) 12/11/2024 2:25 PM INSTRUCTOR PHYSICAL EDUCATION Ancillary Procedure Department of Oncology 12/11/2024 12:21 PM INSTRUCTOR PHYSICAL EDUCATION - 12/11/2024 9:29 PM INSTRUCTOR PHYSICAL EDUCATION Hospital Encounter Department of Radiation Oncology in [place], [place] [address] [place] [phone] Kiana Oliver M.D. 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 (Primary Dx); Malignant Neoplasm Of Face Squamous Cell 12/11/2024 Orders Only Department of Dermatology in [place], [place] [address] [place] [address] Elsi Goldsmith M.D. 12/11/2024 Clinical Communication Department of Internal Medicine in [place], [place] [address] [phone] Kelly Mendez APRN, C.N.P., D.N.P. [facility] Form ([facility] I [id number]) 12/08/2024 9:25 AM INSTRUCTOR PHYSICAL EDUCATION - 12/08/2024 11:59 PM INSTRUCTOR PHYSICAL EDUCATION Hospital Encounter Department of Laboratory Medicine in [place], [place] [address] [place] [phone] Deann Zhu APRN, C.N.P., M.S. Transplant Liver (HCC); Medication Therapy Doctor Of Osteopathy Not Anticoagulant; Immunodeficiency Due To Drugs (HCC); Moderate Or Severe Use Disorder (Dependence) Alcohol Remission (HCC) Discharge Disposition: Home or Self Care 12/08/2024 Clinical Communication Division of Endocrinology in [place], [place] [address] [place] [address] Provider, Unknown 12/08/2024 Orders Only Department of Radiation Oncology in [place], [place] [address] [place] [address] Kiana Oliver M.D. 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 (Primary Dx) 12/05/2024 12:54 PM INSTRUCTOR PHYSICAL EDUCATION - 12/05/2024 11:59 PM INSTRUCTOR PHYSICAL EDUCATION Hospital Encounter Department of Cardiovascular Diseases in [place], [place] [address] [place] [phone] Kareem Ayala M.D., M.S. Discharge Disposition: Home or Self Care 12/04/2024 Clinical Communication Jeyson milan [facility] Transplantation and Clinical Regeneration in [place], [place] [address] [place] [phone] Aide Welch P.A.-C., M.S. Appt Request (MRI spine) 12/03/2024 2:49 PM INSTRUCTOR PHYSICAL EDUCATION - 12/03/2024 4:10 PM INSTRUCTOR PHYSICAL EDUCATION Hospital Encounter Department of Radiation Oncology in [place], [place] [address] [place] [phone] Edson Grimm M.D. Prosthesis Aortic Valve (Primary Dx); Malignant Neoplasm Of Face Squamous Cell 12/01/2024 12:45 PM INSTRUCTOR PHYSICAL EDUCATION - 12/01/2024 11:59 PM INSTRUCTOR PHYSICAL EDUCATION Hospital Encounter Department of Radiology in [address] [phone] Elsi Goldsmith M.D. Malignant Neoplasm Of Face Squamous Cell Discharge Disposition: Home or Self Care 12/01/2024 12:45 PM INSTRUCTOR PHYSICAL EDUCATION - 12/01/2024 11:59 PM INSTRUCTOR PHYSICAL EDUCATION Hospital Encounter Department of Radiology in [place] [address] [place] [phone] Elsi Goldsmith M.D. Malignant Neoplasm Of Face Squamous Cell Discharge Disposition: Home or Self Care 12/01/2024 Orders Only Department of Dermatology in [place], [place] [address] [place] [phone] Elsi Goldsmith M.D. Malignant Neoplasm Of Face Squamous Cell 12/01/2024 Clinical Communication [facility] in [place], [place] [address] [place] [phone] Ashly Mata M.S.N., R.N. Tacrolimus Adjustment Protocol Liver 11/28/2024 Clinical Communication Jeyson milan [facility] Transplantation and Clinical Regeneration in [place], [place] [address] [place] [phone] Mavis Aguilar R.N., CDE Diabetes 11/27/2024 9:30 AM INSTRUCTOR PHYSICAL EDUCATION - 11/27/2024 11:59 PM INSTRUCTOR PHYSICAL EDUCATION Hospital Encounter Department of Laboratory Medicine in [place] [address] [place] [address] Deann Zhu APRN, C.N.P., M.S. Transplant Liver (HCC); Medication Therapy Doctor Of Osteopathy Not Anticoagulant; Immunodeficiency Due To Drugs (HCC); Moderate Or Severe Use Disorder (Dependence) Alcohol Remission (HCC) Discharge Disposition: Home or Self Care 11/26/2024 3:20 PM INSTRUCTOR PHYSICAL EDUCATION Telemedicine Department of Internal Medicine in [address] [phone] Kelly Mendez APRN, C.N.P., D.N.P. Follow Up Exam (Primary Dx); Depression Major Recurrent Mild (HCC); Immunodeficiency Due To Drugs (HCC); Malnutrition Severe Protein-Calorie (HCC) 11/25/2024 2:00 PM INSTRUCTOR PHYSICAL EDUCATION Comprehensive Visit Department of Nutrition and Diabetes Education in [place], [place] [address] [place] [phone] Jake Ellington M.D. Epp, Lisa M, RDN, LD Malnutrition Severe Protein-Calorie (HCC); Transplant Liver (HCC); Percutaneous Endoscopic Gastrostomy (HCC) 11/25/2024 1:40 PM INSTRUCTOR PHYSICAL EDUCATION Nurse Only Department of Dermatology in [place], [place] [address] [place] [phone] Jonny Sarabia M.D., M.S. Elsi Goldsmith M.D. Daniela Cox, R.N. Discharge Disposition: Home or Self Care 11/25/2024 12:30 PM INSTRUCTOR PHYSICAL EDUCATION Comprehensive Visit Division of Endocrinology in [place], [place] [address] [place] [phone] Bryson Lr M.D. Senior Care Use Of Insulin Active (HCC) (Primary Dx); Transplant Liver (HCC); Diabetes Mellitus Type 2 (HCC); Dietary Counseling And Surveillance For Enteral Nutrition; Diabetes Mellitus Type 2 Hyperglycemia (HCC) 11/25/[address] [facility]N PCP [facility] MNT Kelly Mendez APRN, C.N.P., D.N.P. 11/25/2024 Clinical Communication Department of Radiation Oncology in [place], [place] [address] [place] [phone] Edson Grimm M.D. 11/25/2024 Orders Only Department of Dermatology in [place], [place] [address] [place] [phone] Yue Booker M.D. 11/25/2024 Documentation Department of Dermatology in [place], [place] [address] [place] [phone] Yue Booker M.D. 11/24/2024 9:30 AM INSTRUCTOR PHYSICAL EDUCATION Procedure visit Department of Dermatology in [address] [phone] Elsi Goldsmith M.D. Malignant Neoplasm Of Face Squamous Cell Discharge Disposition: Home or Self Care 11/24/2024 Ancillary Procedure Department of Dermatology 11/24/2024 Clinical Communication Department of Internal Medicine in [place], [place] [address] [place] [phone] Kelly Mendez APRN, C.N.P., D.N.P. 11/20/2024 Clinical Communication Department of Internal Medicine in [place], [place] [address] [place] [phone] Kelly Mendez APRN, C.N.P., D.N.P. [facility] ([id number]) 11/17/2024 Clinical Communication Division of General Internal Medicine in [place], [place] [address] [place] [phone] Halie Lewis R.N. G-tube site care 11/17/2024 Clinical Communication Department of Internal Medicine in [place], [place] [address] [place] [phone] Gi Lezama R.N. Post Hospital Follow-up 11/14/2024 Documentation [facility] in [place], [place] [address] [place] [phone] Mavis Agiular R.N., CDE 11/14/2024 Orders Only [facility] in [place], [place] [address] [place] [phone] Yamilet Chatman R.N. Transplant Liver (HCC) (Primary Dx); Malnutrition Severe Protein-Calorie (HCC) 11/13/2024 11:08 AM INSTRUCTOR PHYSICAL EDUCATION Anesthesia Event Department of Radiology, [facility], in [place], [place] [address] [place] [address] Mele Bansal APRN, CRNA Brytowski, Nathan, APRN, CRNA, DNAP 11/13/2024 Documentation Division of Endocrinology in [place], [place] [address] [place] [phone] Halie Lewis R.N. Scheduling 11/13/2024 Orders Only [facility] in [place], [place] [address] [place] [address] Yamilet Chatman R.N. Transplant Liver (HCC) (Primary Dx); Diabetes Mellitus Type 2 (HCC); Dietary Counseling And Surveillance For Enteral Nutrition 11/10/2024 7:42 AM INSTRUCTOR PHYSICAL EDUCATION - 11/14/2024 12:33 PM INSTRUCTOR PHYSICAL EDUCATION Hospital Encounter [facility], [facility], [facility], Tenth Floor [address] [place] [phone] Marlon, Jeyson, M.D. Pint, Mirlande M, WALLPAPER PRINTER HELPER, C.N.P., D.N.P. Malnutrition Severe Protein-Calorie (HCC) (Primary Dx); Transplant Liver (HCC); Restless Leg Syndrome; Medication Therapy Senior Care Not Anticoagulant; Percutaneous Endoscopic Gastrostomy (HCC); Weakness General [R53.1] Discharge Disposition: Home or Self Care 11/06/2024 Intake [facility] 11/05/2024 2:30 PM INSTRUCTOR PHYSICAL EDUCATION Telemedicine [facility] in [place], [place] [address] [place] [address] Deann Zhu APRN, C.N.P., Jayda Foster M.D. Transplant Liver (HCC); Medication Therapy Senior Care Not Anticoagulant 11/05/2024 8:00 AM INSTRUCTOR PHYSICAL EDUCATION Telemedicine [facility] in [place], [place] [address] [place] [address] Anibal Shearer P.A.-C. Bamlet, Heather M, M.Ed., RDN, LD Transplant Liver (HCC); Medication Therapy Doctor Of Osteopathy Not Anticoagulant 11/05/2024 Orders Only Division of Endocrinology in [place], [place] [address] [place] [phone] Bryson Lr M.D. 11/04/2024 Clinical Communication Department of Internal Medicine in [place], [place] [address] [place] [phone] Kelly Mendez APRN, C.N.P., D.N.P. [employer] Form ([facility] Order #[id number]) from Last 3 Months Immunizations Immunization Administration Dates Next Due SARS-COV-2 (COVID-19) - MODERNA BIVALENT(Discont inued) 04/07/2023 SARS-COV-2 (COVID-19) - MODERNA(Discontinued) Family History Medical History Relation Name Comments Cancer Brother Diabetes mellitus type I Father Cancer Mother Diabetes mellitus type II Mother Relation Name Status Comments Brother Father Mother Social History Tobacco Use Types Packs/Day Years Used Date Smoking Tobacco: Former Cigarettes Q uit: 2008 Passive Smoke Exposure: Never Smokeless Tobacco: Never Tobacco Cessation:Counseling Given: Not Answered Alcohol Use Standard Drinks/Week Comments Not Currently 0 (1 standard drink = 0.6 oz pur e alcohol) last 06/23/22 [facility] Utilities Answer Date Recorded In the past 12 months has e [employer], gas, oil, or water company threatened to [...] week 02/04/2023 How often do you attend caodaism or scientology serv ices? Patient declined 02/04/2023 Do you belong to any clubs o r organizations such as caodaism groups, unions, fraternal or athletic groups, or [...] Answer Date Recorded PHQ-2 Score 6 11/23/2024 [facility] - Occupational Stress [...] AM CDT Legal Sex Male 9:11 PM INSTRUCTOR PHYSICAL EDUCATION Gender Identity na 09/07/2021 10:32 AM CDT Sexual Orientation Choose not to disclose 2020 10:32 AM CDT Last Filed Vital Signs Vital Sign Reading Time Taken Comments Blood Pressure 118/90 01/29/2025 1:07 PM CDT Pulse 108 01/29/2025 1:07 PM CDT Temperature 36.1 C (97 F) 01/29/2025 1:07 PM CDT Respiratory Rate 20 11/14/2024 11:59 AM INSTRUCTOR PHYSICAL EDUCATION Oxygen Saturation 99% 11/14/2024 11:59 AM INSTRUCTOR PHYSICAL EDUCATION Inhaled Oxygen Concentration - - Weight 47.2 kg (104 lb) 01/29/2025 1:07 PM CDT Height 166.7 cm (5' 5.63) 11/10/2024 1:00 PM CS T Body Mass Index 16.98 11/10/2024 1:00 PM INSTRUCTOR PHYSICAL EDUCATION Plan of Treatment Upcoming Encounters Date Type Department Care Team (Latest Contact Info) Description 02/03/2025 1:00 PM CDT Appointment Department of Radiation Oncology in [address] [phone] Kiana Oliver M.D. [address] [place] [address] 02/04/2025 1:00 PM CDT Appointment Department of Radiation Oncology in [address] [phone] Kiana Oliver M.D. [address] [place] [phone] 02/05/2025 12:45 PM CDT Appointment Department of Radiation Oncology in [address] [phone] Kiana Oliver M.D. [address] [place] [phone] 02/05/2025 1:00 PM CDT Appointment Department of Radiation Oncology in [address] [phone] Kiana Oliver M.D. [address] [place] [phone] 02/06/2025 1:00 PM CDT Appointment Department of Radiation Oncology in [place], [place] [address] [place] [address] Kiana Oliver M.D. [address] [place] [phone] 02/09/2025 1:00 PM CDT Appointment Department of Radiation Oncology in [place], [place] [address] [place] [phone] Kiana Oliver M.D. [address] [place] [phone] 02/10/2025 1:00 PM CDT Appointment Department of Radiation Oncology in [place], [place] [address] [place] [phone] Kiana Oliver M.D. [address] [place] [phone] 02/11/2025 1:00 PM CDT Appointment Department of Radiation Oncology in [place], [place] [address] [place] [phone] Kiana Oliver M.D. [address] [place] [phone] 02/12/2025 1:00 PM CDT Appointment Department of Radiation Oncology in [place], [place] [address] [place] [phone] Kiana Oliver M.D. [address] [place] [phone] 02/12/2025 1:15 PM CDT Appointment Department of Radiation Oncology in [place], [place] [address] [place] [phone] Kiana Oliver M.D. [address] [place] [phone] 02/13/2025 1:00 PM CDT Appointment Department of Radiation Oncology in [place], [place] [address] [place] [phone] Kiana Oliver M.D. [address] [place] [phone] 02/16/2025 7:15 AM CDT Ancillary Procedure Department of Ophthalmology in [address] [phone] Maida Tim O.D. [address] [place] [phone] 02/16/2025 8:00 AM CDT Comprehensive Visit Department of Ophthalmology in [address] [phone] Desi Rasmussen O.D. [address] [place] [phone] 02/23/2025 8:15 AM CDT Clinical Communication Virtual Review in [place], [place] [address] [place] [address] 02/24/2025 9:40 AM CDT Office Visit Department of Dermatology in [address] [phone] Felipe Stewart M.D. [address] [place] [phone] 02/24/2025 10:00 AM CDT Office Visit [facility] in [place], [place] [address] [place] [phone] Aide Welch P.A.-C., M.S. [address] [place] [phone] 03/03/2025 9:00 AM CDT Telemedicine Department of Nutrition and Diabetes Education in [place], [place] [address] [place] [phone] Katelin Alcaraz, WALLPAPER PRINTER HELPER, C.N.P., D.N.P. [address] [place] [phone] Mansi Ross M.S., RDN, LD [address] [place] [phone] Health Maintenance Due Date Last Done Comments DTaP,Tdap,and Td Vaccines (1 - Tdap) 1979 Hepatitis A Vaccines (1 of 2 - Risk 2-dose series) 1979 Pneumococcal vaccine (50+ years) (1 of 2 - PCV) 1979 Zoster Vaccines (1 of 2) 1979 Hepatitis B Vaccines (1 of 3 - Risk 3-dose series) 2020 RSV vaccine - (32-36 weeks) or 60+ years (1 - Risk 60-74 years 1-dose series) 2020 COVID-19 Vaccine (2 - Moderna risk series) 05/05/2023 04/07/2023, 04/07/2023 Diabetic Office Visit with Foot Exam 07/03/2024 07/03/2023 Influenza Vaccine (#1) 2024 Depression Monitoring (PHQ-9 for quality tracking) 11/19/2024 Depression Monitoring (PHQ-9) 03/23/2025 11/23/2024 Urine Albumin 04/07/2025 04/07/2024, 12/21, 10/24/2016 (Performed elsewhere) Hemoglobin A1C 04/20/2025 10/20/2024, 06/20, 04/07/2024, Additional history exists Visit: Chronic Disease, age 18+ 08/06/2025 08/06/2024, 07/03/2023 Office Visit for Blood Pressure Check / Re-check 10/20/2025 10/20/2024 Diabetes Education 12/15/2025 12/15/2024, 10/24/2016 Creatinine Level (Kidney Function Test) 01/30/2026 01/30/2025, 01/08/2025, 12/26/2024, Additional history exists Dilated Eye Exam 01/30/2026 01/30/2025 Lipid (Cholesterol) Screening 10/20/2029 10/20/2024, 08/07/2024, 04/07/2024, Additional history exists Hepatitis B Screening Discontinued 07/17/2021 Colonoscopy Discontinued 07/02/2023, 07/02/2023 HIV Screening Completed 11/09/2023, 03/26/2023 CT Colonography Discontinued Cologuard Discontinued Colorectal Cancer Screening Discontinued FIT Discontinued HPV Vaccines Aged Out No longer eligi ble based on patient's age to complete this topic IPV Vaccines Aged Out No longer eligi ble based on patient's age to complete this topic Medical Devices Implanted Type Area Crm Campaign Manager Device Identifier Shelf Expiration Date Model / Serial / Lot Vlv Artc Spn3 [facility] 26 - [id number] - [id number] Implanted:Qty: 1 on 05/20/2024 by Gilbert Quintero M.D. at [facility] Cardiac Valve Prosthesis N/A: Heart [employer] [id number] 06/06/[address] 26 / [id number] / Coil [employer] 0.932m10t82 - [id number] Implanted:Qty: 1 on 2023 by Noah Fontaine M.D. at [facility] Embolization [employer] 05/20/2028 [id number] / / [id number] [employer] 0.812f09p74 - [id number] Implanted:Qty: 1 on 2023 by Noah Fonatine M.D. at [facility] Embolization [employer] 05/20/2028 [id number] / / [id number] [employer] 0.030p17s74 - [id number] Implanted:Qty: 1 on 2023 by Noah Fontaine M.D. at [facility] [employer] 08/07/2024 [id number] / / [id number] [employer] 0.528a42w24 - [id number] Implanted:Qty: 1 on 2023 by Noah Fontaine M.D. at [facility] [employer] 05/14/2028 [id number] / / [id number] [employer] 0.206v93a94 - [id number] Implanted:Qty: 1 on 2023 by Noah Fontaine M.D. at [facility] [employer] 05/14/2028 [id number] / / [id number] [employer] 0.970q25w18 - [id number] Implanted:Qty: 1 on 2023 by Noah Fontaine M.D. at [facility] [employer] 08/07/2024 [id number] / / [id number] [employer] 0.623v29h26 - [id number] Implanted:Qty: 1 on 2023 by Noah Fontaine M.D. at [facility] [employer] 05/14/2028 Q38489 / / [id number] [employer] 0.693h30e74 - [id number] Implanted:Qty: 1 on 2023 by Noah Fontaine M.D. at [facility] [employer] 05/14/2028 [id number] / / [id number] [employer] 0.227g58g44 - [id number] Implanted:Qty: 1 on 2023 by Noah Fontaine M.D. at [facility] [employer] 05/14/2028 J54949 / / [id number] [employer] 0.154p84v60 - [id number] Implanted:Qty: 1 on 2023 by Noah Fontaine M.D. at [facility] Emb[employer]ization [employer] 02/16/2026 [id number] / / [id number] [employer] 0.479a51d51 - [id number] Implanted:Qty: 1 on 2023 by Noah Fontaine M.D. at [facility] [employer] 05/20/2028 [id number] / / [id number] [employer] 0.284a05m09 - [id number] Implanted:Qty: 1 on 2023 by Noah Fontaine M.D. at [facility] [employer] 05/20/2028 J08201 / / [id number] [employer] 0.803x86s59 - [id number] Implanted:Qty: 1 on 2023 by Noah Fontaine M.D. at [facility] [employer] 03/28/2028 Q39613 / / [id number] [employer] 0.213g95z77 - [id number] Implanted:Qty: 1 on 2023 by Noah Fontaine M.D. at [facility] [employer] 04/12/2028 [id number] / / [id number] [employer] 0.513w78q78 - [id number] Implanted:Qty: 1 on 2023 by Noah Fontaine M.D. at [facility] [employer] 05/19/2027 [id number] / / [id number] [employer] 0.716w03w12 - [id number] Implanted:Qty: 1 on 2023 by Noah Fontaine M.D. at [facility] [employer] 04/04/2028 Q05040 / / [id number] [employer] 0.116l84t34 - [id number] Implanted:Qty: 1 on 2023 by Noah Fontaine M.D. at [facility] [employer] 03/28/2028 D54643 / / [id number] [employer] 0.068p22x95 - [id number] Implanted:Qty: 1 on 2023 by Noah Fontaine M.D. at [facility] [employer] 07/17/2027 D14952 / / [id number] [employer] 0.464o01l71 - [id number] Implanted:Qty: 1 on 2023 by Noah Fontaine M.D. at [facility] [employer] 10/17/2026 I50441 / / [id number] Coil Mreye .883f3y7 - [id number] Implanted:Qty: 1 on 2023 by Noah Fontaine M.D. at [facility] [employer] 03/13/2028 V51802 / / [id number] Coil Mreye .147x6u4 - [id number] Implanted:Qty: 1 on 2023 by Noah Fontaine M.D. at [facility] [employer] 03/13/2028 E89255 / / [id number] Co[employer] 0.515l95s27 - [id number] Implanted:Qty: 1 on 2023 by Noah Fontaine M.D. at [facility] [employer] 04/23/2028 F16532 / / [id number] [employer] 0.444e03v61 - [id number] Implanted:Qty: 1 on 2023 by Noah Fontaine M.D. at [facility] [employer] 04/23/2028 O71054 / / [id number] [employer] 0.403l10r16 - [id number] Implanted:Qty: 1 on 2023 by Noah Fontaine M.D. at [facility] [employer] 04/23/2028 R53281 / / [id number] Coil [employer] 0.724q08i80 - [id number] Implanted:Qty: 1 on 2023 by Noah Fontiane M.D. at [facility] [employer]ol[employer] 12/01/2026 O49803 / / [id number] Coil [employer] 0.747u88z96 - [id number] Implanted:Qty: 1 on 2023 by Noah Fontaine M.D. at [facility] Embolization [employer] 12/01/2026 B21046 / / [id number] Coil [employer] 0.731h70b74 - [id number] Implanted:Qty: 1 on 2023 by Noah Fontaine M.D. at [facility] [employer] 05/20/2028 E66018 / / [id number] Clp Hrzn Ti 6 Clp Venu - [id number] Implanted:Qty: 1 on 11/10/2023 by Aurea Virk M.D. at [facility] Hardware e.g. pins/screws/r ods Tuniu [id number] / / Persona-Artic Surf Mc E-F 11mm Rt - [id number] Implanted:Qty: 1 on 01/06/2016 Knee Implant Other/Legacy - See Implant Description [employer] Description:Device Manufactu rer - Trae. Body Location - Other. Right. Device Status Text - KNEE [id number]. Persona-Tibia 5 Deg Rt Sz E - [id number] Implanted:Qty: 1 on 01/06/2016 Knee Implant Other/Legacy - See Implant Description [employer] Description:Device Manufactu rer - Trae. Body Location - Other. Right. Device Status Text - KNEE [id number]. Persona-Femur Cr Std Rt Sz 6 - [id number] Implanted:Qty: 1 on 01/06/2016 Knee Implant Other/Legacy - See Implant Description [employer] Description:Device Manufactu rer - Trae. Body Location - Other. Right. Device Status Text - KNEE [id number]. Ppm System Dr Rosen - [id number] - [id number] Implanted:Qty: 1 on 05/20/2024 by Emily Arroyo M.D. at [facility] Pacemaker [employer] 08/02/2025 [id number] / [id number] / Procedures Procedure Name Priority Date/Time Associated Diagnosis Comments ARIA DAILY TREATMENT INFORMATION Routine 02/02/2025 12:16 PM CDT BILIRUBIN DIRECT, S/P Routine 01/30/2025 10:33 AM CDT Transplant Liver (HCC) Medication Therapy Senior Care Not Anticoagulant 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 Remission (HCC) CBC WITH DIFFERENTIAL, B Routine 01/30/2025 10:33 AM CDT Transplant Liver (HCC) Medication Therapy Doctor Of Osteopathy Not Anticoagulant 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 Remission (HCC) TACROLIMUS LEVEL, B Routine 01/30/2025 10:33 AM CDT Transplant Liver (HCC) Medication Therapy Doctor Of Osteopathy Not Anticoagulant 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 Remission (HCC) GLUCOSE, FASTING, S/P Routine 01/30/2025 10:33 AM CDT Transplant Liver (HCC) Medication Therapy Senior Care Not Anticoagulant 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 Remission (HCC) COMPREHENSIVE METABOLIC PANEL, S/P Routine 01/30/2025 10:33 AM CDT Transplant Liver (HCC) Medication Therapy Senior Care Not Anticoagulant 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 Remission (HCC) ARIA DAILY TREATMENT INFORMATION Routine 01/30/2025 9:00 AM CDT ARIA DAILY TREATMENT INFORMATION Routine 01/29/2025 12:59 PM CDT ARIA DAILY TREATMENT INFORMATION Routine 01/28/2025 1:07 PM CDT ARIA DAILY TREATMENT INFORMATION Routine 01/27/2025 1:01 PM CDT ARIA DAILY TREATMENT INFORMATION Routine 01/26/2025 1:02 PM CDT ARIA DAILY TREATMENT INFORMATION Routine 01/23/2025 1:13 PM INSTRUCTOR PHYSICAL EDUCATION ARIA DAILY TREATMENT INFORMATION Routine 01/22/2025 12:52 PM INSTRUCTOR PHYSICAL EDUCATION ARIA DAILY TREATMENT INFORMATION Routine 01/21/2025 12:39 PM INSTRUCTOR PHYSICAL EDUCATION ARIA DAILY TREATMENT INFORMATION Routine 01/20/2025 12:54 PM INSTRUCTOR PHYSICAL EDUCATION ARIA DAILY TREATMENT INFORMATION Routine 01/19/2025 12:36 PM INSTRUCTOR PHYSICAL EDUCATION ARIA DAILY TREATMENT INFORMATION Routine 01/16/2025 12:54 PM INSTRUCTOR PHYSICAL EDUCATION ONCOLOGY IMAGE EXAM Routine 01/15/2025 1 :33 PM INSTRUCTOR PHYSICAL EDUCATION ARIA DAILY TREATMENT INFORMATION Routine 01/15/2025 12:48 PM INSTRUCTOR PHYSICAL EDUCATION ARIA DAILY TREATMENT INFORMATION Routine 01/14/2025 12:58 PM INSTRUCTOR PHYSICAL EDUCATION ARIA DAILY TREATMENT INFORMATION Routine 01/13/2025 12:37 PM INSTRUCTOR PHYSICAL EDUCATION ARIA DAILY TREATMENT INFORMATION Routine 01/12/2025 12:49 PM INSTRUCTOR PHYSICAL EDUCATION ARIA DAILY TREATMENT INFORMATION Routine 01/09/2025 1:09 PM INSTRUCTOR PHYSICAL EDUCATION ARIA DAILY TREATMENT INFORMATION Routine 01/08/2025 12:57 PM INSTRUCTOR PHYSICAL EDUCATION BILIRUBIN DIRECT, S/P Routine 01/08/2025 9:59 AM INSTRUCTOR PHYSICAL EDUCATION Transplant Liver (HCC) Medication Therapy Doctor Of Osteopathy Not Anticoagulant 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 Remission (HCC) CBC WITH DIFFERENTIAL, B Routine 01/08/2025 9:59 AM INSTRUCTOR PHYSICAL EDUCATION Transplant Liver (HCC) Medication Therapy Doctor Of Osteopathy Not Anticoagulant 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 Remission (HCC) TACROLIMUS LEVEL, B Routine 01/08/2025 9 :59 AM INSTRUCTOR PHYSICAL EDUCATION Transplant Liver (HCC) Medication Therapy Senior Care Not Anticoagulant 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 Remission (HCC) GLUCOSE, FASTING, S/P Routine 01/08/2025 9:59 AM INSTRUCTOR PHYSICAL EDUCATION Transplant Liver (HCC) Medication Therapy Senior Care Not Anticoagulant 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 Remission (HCC) COMPREHENSIVE METABOLIC PANEL, S/P Routine 01/08/2025 9:59 AM INSTRUCTOR PHYSICAL EDUCATION Transplant Liver (HCC) Medication Therapy Doctor Of Osteopathy Not Anticoagulant 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 Remission (HCC) ARIA DAILY TREATMENT INFORMATION Routine 01/07/2025 1:26 PM INSTRUCTOR PHYSICAL EDUCATION ARIA DAILY TREATMENT INFORMATION Routine 01/06/2025 12:55 PM INSTRUCTOR PHYSICAL EDUCATION ARIA DAILY TREATMENT INFORMATION Routine 01/05/2025 1:52 PM INSTRUCTOR PHYSICAL EDUCATION GLUCOSE, FASTING, S/P Routine 12/26/2024 10:06 AM INSTRUCTOR PHYSICAL EDUCATION Transplant Liver (HCC) Medication Therapy Doctor Of Osteopathy Not Anticoagulant 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 Remission (HCC) BILIRUBIN DIRECT, S/P Routine 12/26/2024 10:05 AM INSTRUCTOR PHYSICAL EDUCATION Transplant Liver (HCC) Medication Therapy Senior Care Not Anticoagulant 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 Remission (HCC) CBC WITH DIFFERENTIAL, B Routine 12/26/2024 10:05 AM INSTRUCTOR PHYSICAL EDUCATION Transplant Liver (HCC) Medication Therapy Senior Care Not Anticoagulant 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 Remission (HCC) TACROLIMUS LEVEL, B Routine 12/26/2024 10:05 AM INSTRUCTOR PHYSICAL EDUCATION Transplant Liver (HCC) Medication Therapy Doctor Of Osteopathy Not Anticoagulant 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 Remission (HCC) COMPREHENSIVE METABOLIC PANEL, S/P Routine 12/26/2024 10:05 AM INSTRUCTOR PHYSICAL EDUCATION Transplant Liver (HCC) Medication Therapy Doctor Of Osteopathy Not Anticoagulant 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 Remission (HCC) INITIAL RAD ONC TREATMENT PLANNING CT SIMULATION Routine 12/23/2024 1:00 PM INSTRUCTOR PHYSICAL EDUCATION 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 DENTAL LAB Routine 12/22/2024 MEDICAL PANOREX Routine 12/19/2024 3:11 PM INSTRUCTOR PHYSICAL EDUCATION 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 DERMATOLOGY IMAGE EXAM Routine 12/19/2024 12:00 AM INSTRUCTOR PHYSICAL EDUCATION ONCOLOGY IMAGE EXAM Routine 12/11/2024 2 :23 PM INSTRUCTOR PHYSICAL EDUCATION BILIRUBIN DIRECT, S/P Routine 12/08/2024 9:35 AM INSTRUCTOR PHYSICAL EDUCATION Transplant Liver (HCC) Medication Therapy Senior Care Not Anticoagulant 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 Remission (HCC) CBC WITH DIFFERENTIAL, B Routine 12/08/2024 9:35 AM INSTRUCTOR PHYSICAL EDUCATION Transplant Liver (HCC) Medication Therapy Doctor Of Osteopathy Not Anticoagulant 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 Remission (HCC) TACROLIMUS LEVEL, B Routine 12/08/2024 9 :35 AM INSTRUCTOR PHYSICAL EDUCATION Transplant Liver (HCC) Medication Therapy Senior Care Not Anticoagulant 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 Remission (HCC) GLUCOSE, FASTING, S/P Routine 12/08/2024 9:35 AM INSTRUCTOR PHYSICAL EDUCATION Transplant Liver (HCC) Medication Therapy Doctor Of Osteopathy Not Anticoagulant 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 Remission (HCC) COMPREHENSIVE METABOLIC PANEL, S/P Routine 12/08/2024 9:35 AM INSTRUCTOR PHYSICAL EDUCATION Transplant Liver (HCC) Medication Therapy Senior Care Not Anticoagulant 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 Remission (HCC) INTERFACED REMOTE DEVICE CHECK Routine 12/05/2024 12:54 PM INSTRUCTOR PHYSICAL EDUCATION CT CHEST WITH IV CONTRAST RAD - Routine (most inpatients and all outpatients) 12/01/2024 1:46 PM INSTRUCTOR PHYSICAL EDUCATION Malignant Neoplasm Of Face Squamous Cell CT NECK SOFT TISSUE WITH IV CONTRAST RAD - Routine (most inpatients and all outpatients) 12/01/2024 1:41 PM INSTRUCTOR PHYSICAL EDUCATION Malignant Neoplasm Of Face Squamous Cell CT HEAD WITHOUT AND WITH IV CONTRAST RAD - Routine (most inpatients and all outpatients) 12/01/2024 1:41 PM INSTRUCTOR PHYSICAL EDUCATION Malignant Neoplasm Of Face Squamous Cell BILIRUBIN DIRECT, S/P Routine 11/27/2024 9:44 AM INSTRUCTOR PHYSICAL EDUCATION Transplant Liver (HCC) Medication Therapy Doctor Of Osteopathy Not Anticoagulant 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 Remission (HCC) CBC WITH DIFFERENTIAL, B Routine 11/27/2024 9:44 AM INSTRUCTOR PHYSICAL EDUCATION Transplant Liver (HCC) Medication Therapy Senior Care Not Anticoagulant 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 Remission (HCC) TACROLIMUS LEVEL, B Routine 11/27/2024 9 :44 AM INSTRUCTOR PHYSICAL EDUCATION Transplant Liver (HCC) Medication Therapy Doctor Of Osteopathy Not Anticoagulant 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 Remission (HCC) GLUCOSE, FASTING, S/P Routine 11/27/2024 9:44 AM INSTRUCTOR PHYSICAL EDUCATION Transplant Liver (HCC) Medication Therapy Doctor Of Osteopathy Not Anticoagulant 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 Remission (HCC) COMPREHENSIVE METABOLIC PANEL, S/P Routine 11/27/2024 9:44 AM INSTRUCTOR PHYSICAL EDUCATION Transplant Liver (HCC) Medication Therapy Doctor Of Osteopathy Not Anticoagulant 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 Remission (HCC) DERMATOLOGY IMAGE EXAM Routine 11/24/2024 12:00 AM INSTRUCTOR PHYSICAL EDUCATION GLUCOSE POCT, B Routine 11/14/2024 8:15 AM INSTRUCTOR PHYSICAL EDUCATION TACROLIMUS LEVEL, B Routine 11/14/2024 5 :03 AM INSTRUCTOR PHYSICAL EDUCATION CYSTATIN C WITH EGFR Routine 11/14/2024 5:03 AM INSTRUCTOR PHYSICAL EDUCATION HEPATIC FUNCTION PANEL, S Routine 11/14/2024 5:03 AM INSTRUCTOR PHYSICAL EDUCATION PHOSPHORUS (INORGANIC), S Routine 11/14/2024 5:03 AM INSTRUCTOR PHYSICAL EDUCATION MAGNESIUM, S Routine 11/14/2024 5:03 AM INSTRUCTOR PHYSICAL EDUCATION CBC WITHOUT DIFFERENTIAL, B Routine 11/14/2024 5:03 AM INSTRUCTOR PHYSICAL EDUCATION BASIC METABOLIC PANEL, S/P Routine 11/14/2024 5:03 AM INSTRUCTOR PHYSICAL EDUCATION POTASSIUM, S/P Routine 11/13/2024 4:27 PM INSTRUCTOR PHYSICAL EDUCATION IR GASTROSTOMY TUBE PLACEMENT RAD - Routine (most inpatients and all outpatients) 11/13/2024 11:50 AM INSTRUCTOR PHYSICAL EDUCATION GLUCOSE POCT, B Routine 11/13/2024 10:16 AM INSTRUCTOR PHYSICAL EDUCATION CYSTATIN C WITH EGFR Routine 11/13/2024 5:07 AM INSTRUCTOR PHYSICAL EDUCATION TACROLIMUS LEVEL, B Routine 11/13/2024 5 :07 AM INSTRUCTOR PHYSICAL EDUCATION HEPATIC FUNCTION PANEL, S Routine 11/13/2024 5:07 AM INSTRUCTOR PHYSICAL EDUCATION PHOSPHORUS (INORGANIC), S Routine 11/13/2024 5:07 AM INSTRUCTOR PHYSICAL EDUCATION MAGNESIUM, S Routine 11/13/2024 5:07 AM INSTRUCTOR PHYSICAL EDUCATION CBC WITHOUT DIFFERENTIAL, B Routine 11/13/2024 5:07 AM INSTRUCTOR PHYSICAL EDUCATION BASIC METABOLIC PANEL, S/P Routine 11/13/2024 5:07 AM INSTRUCTOR PHYSICAL EDUCATION GLUCOSE POCT, B Routine 11/12/2024 9:03 PM INSTRUCTOR PHYSICAL EDUCATION GLUCOSE POCT, B Routine 11/12/2024 8:05 PM INSTRUCTOR PHYSICAL EDUCATION GLUCOSE POCT, B Routine 11/12/2024 12:23 PM INSTRUCTOR PHYSICAL EDUCATION GLUCOSE POCT, B Routine 11/12/2024 9:16 AM INSTRUCTOR PHYSICAL EDUCATION PHOSPHORUS (INORGANIC), S Timed 11/12/2024 5:37 AM INSTRUCTOR PHYSICAL EDUCATION MAGNESIUM, S Timed 11/12/2024 5:37 AM INSTRUCTOR PHYSICAL EDUCATION BASIC METABOLIC PANEL, S/P Timed 11/12/2024 5:37 AM INSTRUCTOR PHYSICAL EDUCATION TACROLIMUS LEVEL, B Routine 11/12/2024 5 :37 AM INSTRUCTOR PHYSICAL EDUCATION CBC WITHOUT DIFFERENTIAL, B Routine 11/12/2024 5:37 AM INSTRUCTOR PHYSICAL EDUCATION GLUCOSE POCT, B Routine 11/12/2024 3:31 AM INSTRUCTOR PHYSICAL EDUCATION PHOSPHORUS (INORGANIC), S Timed 11/11/2024 8:09 PM INSTRUCTOR PHYSICAL EDUCATION MAGNESIUM, S Timed 11/11/2024 8:09 PM INSTRUCTOR PHYSICAL EDUCATION BASIC METABOLIC PANEL, S/P Timed 11/11/2024 8:09 PM INSTRUCTOR PHYSICAL EDUCATION BASIC METABOLIC PANEL, S/P Timed 11/11/2024 8:09 PM INSTRUCTOR PHYSICAL EDUCATION GLUCOSE POCT, B Routine 11/11/2024 5:48 PM INSTRUCTOR PHYSICAL EDUCATION GLUCOSE POCT, B Routine 11/11/2024 10:47 AM INSTRUCTOR PHYSICAL EDUCATION PHOSPHORUS (INORGANIC), S Routine 11/11/2024 5:54 AM INSTRUCTOR PHYSICAL EDUCATION TACROLIMUS LEVEL, B Timed 11/11/2024 5 :54 AM INSTRUCTOR PHYSICAL EDUCATION VITAMIN B12 ASSAY, S Routine 11/11/2024 5:54 AM INSTRUCTOR PHYSICAL EDUCATION COPPER, S Routine 11/11/2024 5:54 AM INSTRUCTOR PHYSICAL EDUCATION ZINC, S Routine 11/11/2024 5:54 AM INSTRUCTOR PHYSICAL EDUCATION VITAMIN A AND VITAMIN E, S Routine 11/11/2024 5:54 AM INSTRUCTOR PHYSICAL EDUCATION CBC WITHOUT DIFFERENTIAL, B Routine 11/11/2024 5:54 AM INSTRUCTOR PHYSICAL EDUCATION COMPREHENSIVE METABOLIC PANEL, S/P Routine 11/11/2024 5:54 AM INSTRUCTOR PHYSICAL EDUCATION TESTOSTERONE, TOT AND FR, S Routine 11/11/2024 5:54 AM INSTRUCTOR PHYSICAL EDUCATION POTASSIUM, RANDOM, U Routine 11/11/2024 12:22 AM INSTRUCTOR PHYSICAL EDUCATION BASIC METABOLIC PANEL, S/P Timed 11/10/2024 8:10 PM INSTRUCTOR PHYSICAL EDUCATION PHOSPHORUS (INORGANIC), S Timed 11/10/2024 8:10 PM INSTRUCTOR PHYSICAL EDUCATION MAGNESIUM, S Timed 11/10/2024 8:10 PM INSTRUCTOR PHYSICAL EDUCATION GLUCOSE POCT, B Routine 11/10/2024 5:45 PM INSTRUCTOR PHYSICAL EDUCATION DX ABDOMEN PORTABLE ANTERIOR POSTERIOR 1 VIEW RAD - Routine (most inpatients and all outpatients) 11/10/2024 11:55 AM INSTRUCTOR PHYSICAL EDUCATION COMPREHENSIVE METABOLIC PANEL, S/P STAT 11/10/2024 8:27 AM INSTRUCTOR PHYSICAL EDUCATION PROTHROMBIN TIME (PT), P STAT 11/10/2024 8:27 AM INSTRUCTOR PHYSICAL EDUCATION BILIRUBIN DIRECT, S/P STAT 11/10/2024 8:27 AM INSTRUCTOR PHYSICAL EDUCATION CBC WITHOUT DIFFERENTIAL, B STAT 11/10/2024 8:27 AM INSTRUCTOR PHYSICAL EDUCATION PHOSPHORUS (INORGANIC), S Routine 11/10/2024 8:26 AM INSTRUCTOR PHYSICAL EDUCATION MAGNESIUM, S Routine 11/10/2024 8:26 AM INSTRUCTOR PHYSICAL EDUCATION HEMOGLOBIN A1C, B Routine 10/20/2024 7:0 4 AM INSTRUCTOR PHYSICAL EDUCATION Transplant Liver (HCC) Medication Therapy Doctor Of Osteopathy Not Anticoagulant Alcoholism Personal History (HCC) Malignant Neoplasm Of Liver Hepatocellular (HCC) LIPID PANEL, S Routine 10/20/2024 7:04 AM INSTRUCTOR PHYSICAL EDUCATION Transplant Liver (HCC) Medication Therapy Senior Care Not Anticoagulant Alcoholism Personal History (HCC) Malignant Neoplasm Of Liver Hepatocellular (HCC) ALBUMIN, RANDOM, U Routine 04/07/2024 2: 55 PM CDT Diabetes Mellitus Type 2 Hyperglycemia (HCC) HIV-1/-2 AG AND AB SCREEN, PLASMA STAT 11/09/2023 7:56 PM INSTRUCTOR PHYSICAL EDUCATION COLONOSCOPY Routine 07/02/2023 11:00 AM CDT Alcoholic Cirrhosis Of Liver With Ascites (HCC) HEPATITIS B SURFACE ANTIGEN Routine 07/17/2021 1:21 PM CDT from Last 3 Months or Most Recently Relevant to Health Maintenance Results * Aria Daily Treatment Information (02/02/2025 12:16 PM CDT) Only the most recent of21 resultswithin the time period is included. Course ID 1xHead RUBIO ARIA Course Start Date 5 08:52 CDT RUBIO ARIA First Treatment Date 5 13:51 CDT RUBIO ARIA Last Treatment Date 5 12:16 CDT RUBIO ARIA Treatment Elapsed Days 28 RUBIO ARIA Reference Point [id number] RUBIO ARIA Dosage Given to Date cGy 4200 RUBIO ARIA Session Dosage Given 200 RUBIO ARIA Plan ID [id number] RUBIO ARIA Fractions Treated to Date 21 RUBIO ARIA Planned Total Fractions 30 RUBIO ARIA Prescribed Dose Per Fraction 200 RUBIO ARIA Prescription Dose in cGy 6000 RUBIO ARIA Plan Primary Reference Point [id number] RUBIO ARIA 02/02/2025 12:1 6 PM CDT us Provider Not In System RADIATION ONCOLOGY ORDERA BLES Final Result KELLEN PEREZ na * (ABNORMAL) Tacrolimus, Trough (01/30/2025 10:33 AM CDT) Only the most recent of9 resultswithin the time period is included. Tacrolimus, Trough 2.4(L) 5.0-15.0 (Trough) ng/mL 01/31/2025 10:45 AM CDT [facility] Comment: ----ADDITIONAL INFORMATION---- Target steady-state trough concentrations vary depending on the type of transplant, concomitant immunosuppression, clinical/institutional protocols, and time post-transplant. Results should be interpreted in conjunction with this clinical information and any physical signs/symptoms of rejection/toxicity. Testing performed by Liquid Chromatography-Tandem Mass Spectrometry (LC-MS/MS). This test was developed and its performance characteristics determined by [facility] in a manner consistent with CLIA requirements. This test has not been cleared or approved by the U.S. Food and Drug Administration. Blood (Blood, Venous) 01/30/2025 10:33 AM CDT 01/31/2025 7:16 AM CDT us Deann Zhu APRN, C.N.P., M.S. LAB BLOOD NON ADD-ON Final Result [facility] [address] [place] [address] [facility] [address] [place] [address] [place] [address] * (ABNORMAL) CBC with Differential, Blood (01/30/2025 10:33 AM CDT) Only the most recent of5 resultswithin the time period is included. Pathologist [facility] Hemoglobin 11.3(L) 13.2 - 16.6 g/dL 01/30/2025 11:14 AM CDT FB60 Hematocrit 35.7(L) 38.3 - 48.6 % 01/30/2025 11:14 AM CDT [facility]60 Erythrocytes 4.09(L) 4.35 - 5.65 x10(12)/L 01/30/2025 11:14 AM CDT [facility] MCV 87.3 78.2 - 97.9 fL 01/30/2025 11:14 AM CDT [facility]60 RBC Distrib Width 14.4 11.8 - 14.5 % 01/30/2025 11:14 AM CDT FB60 Platelet Count 147 135 - 317 x10(9)/L 01/30/2025 11:14 AM CDT FB60 Leukocytes 7.0 3.4 - 9.6 x10(9)/L 01/30/2025 11:14 AM CDT FB60 Neutrophils 5.28 1.56 - 6.45 x10(9)/L 01/30/2025 11:14 AM CDT FB60 Lymphocytes 0.96 0.95 - 3.07 x10(9)/L 01/30/2025 11:14 AM CDT FB60 Monocytes 0.67 0.26 - 0.81 x10(9)/L 01/30/2025 11:14 AM CDT FB60 Eosinophils 0.10 0.03 - 0.48 x10(9)/L 01/30/2025 11:14 AM CDT FB60 Basophils <0.04 0.01 - 0.08 x10(9)/L 01/30/2025 11:14 AM CDT FB60 Blood (Blood, Venous) 01/30/2025 10:33 AM CDT 01/30/2025 10:34 AM CDT us Deann Zhu APRN, Ximena.N.P., M.S. LAB BLOOD ADD -ON Final Result Performing Organization Address [facility]/ZIP Co de Phone Number [facility] [address] [place] [address], [place] FB60 [facility] [place] [address] [place] [address] * (ABNORMAL) Glucose, Fasting (01/30/2025 10:33 AM CDT) Only the most recent of5 resultswithin the time period is included. Glucose, P 149(H) 70 - 100 mg/dL 01/30/2025 1:32 PM CDT [facility] Last Intake 1 hr 01/30/2025 12:40 PM CDT [facility] Blood (Blood, Venous) 01/30/2025 10:33 AM CDT 01/30/2025 12:40 PM CDT us Deann Zhu APRN, C.N.P., M.S. LAB BLOOD NON ADD-ON Final Result Performing Organization Address City/[facility]/ZIP Co de Phone Number [facility] [address] [place] [address], [place] OW[place] [facility] [place] [address] [place] [address] * Bilirubin, Direct (01/30/2025 10:33 AM CDT) Only the most recent of6 resultswithin the time period is included. Bilirubin, Direct, P 0.2 0.0 - 0.3 mg/dL 01/30/2025 1:22 PM CDT [facility] Blood (Blood, Venous) 01/30/2025 10:33 AM CDT 01/30/2025 12:40 PM CDT us Deann Zhu APRN, C.N.P., M.S. LAB BLOOD ADD -ON Final Result [facility] [address] [place] [address], [place] [facility] [place] [address] [place] [address] * (ABNORMAL) Comprehensive Metabolic Panel (01/30/2025 10:33 AM CDT) Only the most recent of7 resultswithin the time period is included. [facility] Potassium, P 5.6(H) 3.6 - 5.2 mmol/L 01/30/2025 1:22 PM CDT [facility] Sodium, P 139 135 - 145 mmol/L 01/30/2025 1:22 PM CDT [facility] Chloride, P 101 98 - 107 mmol/L 01/30/2025 1:22 PM CDT [facility] Bicarbonate, P 28 22 - 29 mmol/L 01/30/2025 1:22 PM CDT [facility] Anion Gap, P 10 7 - 15 01/30/2025 1:22 PM CDT [facility] BUN (Blood Urea Nitrogen), P 26(H) 8 - 24 mg/dL 01/30/2025 1:22 PM CDT [facility] Creatinine 0.75 0.74 - 1.35 mg/dL 01/30/2025 1:22 PM CDT [facility] Estimated GFR (eGFR) >90 >=60 mL/min/BS A 01/30/2025 1:22 PM CDT [facility] Comment: Estimated GFR calculated using the 2020 CKD_EPI creatinine equation. Calcium, Total, P 9.1 8.8 - 10.2 mg/dL 01/30/2025 1:22 PM CDT [facility] Glucose, P CANCELED mg/dL 01/30/2025 12:41 PM CDT [facility] Comment: Duplicate test request. Result canceled by the ancillary. Protein, Total, P 7.0 6.3 - 7.9 g/dL 01/30/2025 1:22 PM CDT [facility] Albumin, P 4.1 3.5 - 5.0 g/dL 01/30/2025 1:22 PM CDT [facility] Aspartate Aminotransferase (AST), P 20 8 - 48 U/L 01/30/2025 1:22 PM CDT [facility] Alkaline Phosphatase, P 59 40 - 129 U/L 01/30/2025 1:22 PM CDT [facility] Alanine Aminotransferase (ALT), P 15 7 - 55 U/L 01/30/2025 1:22 PM CDT [facility] Bilirubin, Total, P 0.5 0.0 - 1.2 mg/dL 01/30/2025 1:22 PM CDT [facility] Blood (Blood, Venous) 01/30/2025 10:33 AM CDT 01/30/2025 12:40 PM CDT us Deann Zhu APRN, C.N.P., M.S. LAB BLOOD ADD -ON Final Result Performing Organization Address City/[facility] Co de Phone Number [facility] [address] [place] [address], [facility] [place] [address] [place] [address] * Face 507-Oncology Image Exam (01/15/2025 1:33 PM INSTRUCTOR PHYSICAL EDUCATION) Only the most recent of2 resultswithin the time period is included. 01/15/2025 1:31 PM INSTRUCTOR PHYSICAL EDUCATION Narrative IINY - 01/15/2025 1:33 PM INSTRUCTOR PHYSICAL EDUCATION This order has been created and auto-finalized to support the import of images acquired without order. The clinical documentation to support these images can be found on the encounter that produced images. us Provider Not In System IMG NON RAD IMAGING PROCE DURES Final Result Performing Organization Address City/[facility]/ZIP Co de Phone Number [facility] NA * Initial Rad Onc Treatment Planning CT Simulation (12/23/2024 1:00 PM INSTRUCTOR PHYSICAL EDUCATION) Narrative [facility] - 12/23/2024 1:00 PM INSTRUCTOR PHYSICAL EDUCATION Macrina Bernal 12/23/2024 2:03 PM Initial Rad Onc Treatment Planning CT Simulation Performed by: Kiana Oliver M.D. Authorized by: Kiana Oliver M.D. Kiana Oliver M.D. RADIATION ONCOLOGY ORDERA BLES Final Result KELLEN PEREZ na * Dental Lab (12/22/2024) Bri Mendoza - 12/22/2024 Poured and trimmed by Elaine Allan Fluoride carriers by Elaine Allan us Ni Waite D.D.SKathrin DENTAL ORDERABLES Final R esult * [facility] (12/19/2024 3:11 PM INSTRUCTOR PHYSICAL EDUCATION) Ni Jackson D.D.S. - 12/19/2024 3:11 PM INSTRUCTOR PHYSICAL EDUCATION Panoramic radiograph was taken and revealed There are no central bony or odontogenic lesions in the body or ascending rami of the mandible or the flap. Mandibular condyles appear remodeled and well corticated with no signs of pathology. Dental roots appear normal with no signs of resorption or periapical radiolucencies. No dental caries is evident; however, this radiograph is non-diagnostic for all but the largest carious lesions. us Ni Waite D.D.S. DENTAL ORDERABLES Final R esult * [facility] Image Exam (12/19/2024 12:00 AM INSTRUCTOR PHYSICAL EDUCATION) Only the most recent of2 resultswithin the time period is included. Edin [facility] - 12/19/2024 2:58 PM INSTRUCTOR PHYSICAL EDUCATION This order has been created and auto-finalized to support the import of images acquired without order. The clinical documentation to support these images can be found on the encounter that produced images. us Provider Not In System IMG NON RAD IMAGING PROCE DURES Final Result [facility] NA * CAR CARDIAC DEVICE INTERROGATION (12/05/2024 12:54 PM INSTRUCTOR PHYSICAL EDUCATION) Date Time Interrogation Session [id number] [facility] Type Interrogation Session Remote [facility] Implantable Pulse Generator Crm Campaign Manager [employer] [facility] Implantable Pulse Generator Type Pacemaker [facility] Implantable Pulse Generator Model [id number] [facility] Implantable Pulse Generator Serial Number [id number] [facility] Implantable Pulse Generator Implant Date 20240520 [facility] Battery Remaining Longevity 120.0 mo [facility] Battery Voltage 3.100 [facility] Battery SADDLE MECHANIC Trigger 2.580 [facility] [place] Statistic RV Percent Paced 0.87 [facility] Lead Channel Sensing Intrinsic Amplitude 5.000 [facility] Lead Channel Setting Sensing Sensitivity 2.00 [facility] Lead Channel Impedance Value 490 [facility] Lead Channel Pacing Threshold Amplitude 0.750 [facility] Lead Channel Pacing Threshold Pulse Width 0.2 [facility] Lead Channel Measurements Date and Time 20241205 [facility] Lead Channel Setting Pacing Amplitude 1.380 [facility] Lead Channel Setting Pacing Pulse Width 0.2 [facility] [place] Setting Mode (NBG Code) VDD [facility] [place] Setting Lower Rate Limit 50 [facility] [place] Setting Maximum Tracking Rate 105 [facility] [place] Setting Maximum Sensor Rate 120 [facility] [place] Setting FERNANDA Delay 20 [facility] Anatomical Region Laterality Modality Other 12/06/2024 9:06 PM INSTRUCTOR PHYSICAL EDUCATION Impressions 12/06/2024 9:06 PM INSTRUCTOR PHYSICAL EDUCATION Encounter Impression: Title: Normal Remote: No Events * Normal Device Function * Alerts or events: None * Battery: , 10.00 yrs * Sensing, impedance and thresholds reviewed * Programmed parameters reviewed * Presenting rhythm: P-synchronous pacing at 100 bpm with intermittent conducted beats. * Heart Rate Histograms reviewed * No significant changes noted Plan: Routine remote follow up and as needed. This patient underwent device interrogation. I agree that the device interrogation was medically indicated to provide appropriate care and continue routine device interrogations as indicated. Encounter Summary: This report includes 1 transmission that was received on 2024-12-05. Battery was reviewed. Narrative Procedure Note Kareem Ayala M.D., M.S. - 12/06/2024 IMPRESSION: Encounter Impression: Title: Normal Remote: No Events * Normal Device Function * Alerts or events: None * Battery: , 10.00 yrs * Sensing, impedance and thresholds reviewed * Programmed parameters reviewed * Presenting rhythm: P-synchronous pacing at 100 bpm with intermittentconducted beats. * Heart Rate Histograms reviewed * No significant changes noted Plan: Routine remote follow up and as needed. This patient underwent device interrogation. I agree that the deviceinterrogation was medically indicated to provide appropriate care andcontinue routine device interrogations as indicated. Encounter Summary: This report includes 1 transmission that was receivedon 2024-12-05. Battery was reviewed. Kareem Ayala M.D., M.S. CV IMPLANTABLE CARDIAC DEVICE Final Result * CT Chest with IV Contrast (12/01/2024 1:46 PM INSTRUCTOR PHYSICAL EDUCATION) Anatomical Region Laterality Modality Chest, Thoracic RST LOS, Tho racic ARZ LOS, Thoracic ARZ LOS, Thoracic FLA LOS N/A Computed Tomography 12/01/2024 1:4 6 PM INSTRUCTOR PHYSICAL EDUCATION Impressions 12/01/2024 2:11 PM INSTRUCTOR PHYSICAL EDUCATION 1. Interval multifocal pure groundglass opacities within the right upper lobe, most likely infectious/inflammatory etiology given multiplicity and new findings since 10/21/2024. Short interval follow-up chest CT recommended in 3 months to document resolution. 2. Stable small solid lower lobe pulmonary nodules measuring 4 mm or less. No new or enlarging solid pulmonary nodules. Narrative 12/01/2024 2:11 PM INSTRUCTOR PHYSICAL EDUCATION EXAM: CT CHEST WITH IV CONTRAST COMPARISON: 10/21/2024, 04/09/2024, 11/29/2023, 07/15/2023. FINDINGS: Heart size within normal limits. No pleural or pericardial effusion. Aortic valve replacement and coronary artery calcifications. No evidence of mediastinal, hilar, axillary lymphadenopathy. No supraclavicular lymphadenopathy. Interval multifocal pure groundglass opacities within the right upper lobe images 180 through 225 series 6, coronal images 30 through 35 series 7 and sagittal images 81 through 87 series 8, most likely infectious/inflammatory etiology given multiplicity and new findings since 10/21/2024. Follow-up chest CT recommended in 3 months to document resolution. Stable small left lower lobe pulmonary nodule measuring 4 mm image 262 series 6. Stable punctate posterior right lower lobe nodule image 318 series 6. No evidence of new or enlarging solid pulmonary nodules. Percutaneous gastrostomy tube in place. Artifact secondary to embolization coils within the left upper abdomen. No acute CT abnormality of the visualized upper abdomen. No acute fracture or destructive osseous abnormality. 3D maximum intensity projection (MIP) images were created on a dependent workstation as ordered by the treating provider and reviewed by the radiologist to increase sensitivity for detection of pulmonary nodules. Procedure Note Alfa Alonzo M.D. - 12/01/2024 EXAM: CT CHEST WITH IV CONTRAST COMPARISON: 10/21/2024, 04/09/2024, 11/29/2023, 07/15/2023. FINDINGS: Heart size within normal limits. No pleural or pericardialeffusion. Aortic valve replacement and coronary artery calcifications. No evidence of mediastinal, hilar, axillary lymphadenopathy. Nosupraclavicular lymphadenopathy. Interval multifocal pure groundglass opacities within the right upper lobeimages 180 through 225 series 6, coronal images 30 through 35 series 7 andsagittal images 81 through 87 series 8, most likelyinfectious/inflammatory etiology given multiplicity and new findings since 10/21/2024. Follow-up chest CT recommended in 3months to document resolution. Stable small left lower lobe pulmonary nodule measuring 4 mm image 262series 6. Stable punctate posterior right lower lobe nodule image 318series 6. No evidence of new or enlarging solid pulmonary nodules. Percutaneous gastrostomy tube in place. Artifact secondary to embolizationcoils within the left upper abdomen. No acute CT abnormality of thevisualized upper abdomen. No acute fracture or destructive osseous abnormality. 3D maximum intensity projection (MIP) images were created on a dependentworkstation as ordered by the treating provider and reviewed by theradiologist to increase sensitivity for detection of pulmonary nodules. IMPRESSION: 1. Interval multifocal pure groundglass opacities within the right upperlobe, most likely infectious/inflammatory etiology given multiplicity andnew findings since 10/21/2024. Short interval follow-up chest CTrecommended in 3 months to document resolution. 2. Stable small solid lower lobe pulmonary nodules measuring 4 mm or less.No new or enlarging solid pulmonary nodules. Elsi Goldsmith M.D. [facility] [place] PROCEDURES Final Resul t * CT Neck Soft Tissue with IV Contrast (12/01/2024 1:41 PM INSTRUCTOR [employer]UCATION) Anatomical Region Laterality Modality Neck, Neuroradiology RST LOS , Neuroradiology ARZ LOS, Neuroradiology FLA LOS N/A Computed Tomography 12/01/2024 1:47 PM INSTRUCTOR [employer]ICAL EDUCATION Impressions 12/01/2024 2:28 PM INSTRUCTOR PHYSICAL EDUCATION No acute findings. No evidence of cervical mass or adenopathy. Narrative 12/01/2024 2:28 PM INSTRUCTOR PHYSICAL EDUCATION EXAM: CT NECK SOFT TISSUE WITH IV CONTRAST COMPARISON: None FINDINGS: CT neck performed with IV contrast demonstrates no evidence of cervical mass or adenopathy. There is a moderate amount of calcified plaque at the carotid bifurcations without significant stenosis identified. Examination is otherwise unremarkable. No soft tissue or acute bony abnormalities identified. Procedure Note Nilesh Lopez M.D. - 12/01/2024 EXAM: CT NECK SOFT TISSUE WITH IV CONTRAST COMPARISON: None FINDINGS: CT neck performed with IV contrast demonstrates no evidence ofcervical mass or adenopathy. There is a moderate amount of calcifiedplaque at the carotid bifurcations without significant stenosisidentified. Examination is otherwise unremarkable. No soft tissue or acute bony abnormalities identified. IMPRESSION: No acute findings. No evidence of cervical mass or adenopathy. Elsi Goldsmith M.D. [facility] [place] PROCEDURES Final Resul t * CT Head without and with IV Contrast (12/01/2024 1:41 PM INSTRUCTOR PHYSICAL EDUCATION) Anatomical Region Laterality Modality Head, Neuroradiology RST LOS , Neuroradiology ARZ LOS, Neuroradiology FLA LOS N/A Computed Tomography 12/01/2024 1:36 PM INSTRUCTOR PHYSICAL EDUCATION Impressions 12/01/2024 2:32 PM INSTRUCTOR PHYSICAL EDUCATION No acute intracranial abnormality or evidence of intracranial metastatic disease or vascular abnormality. Narrative 12/01/2024 2:32 PM INSTRUCTOR PHYSICAL EDUCATION EXAM: CT HEAD WITHOUT AND WITH IV CONTRAST COMPARISON: None FINDINGS: Head CT was performed without and following administration of intravenous contrast. 80 cc of Omnipaque 300 was utilized intravenously without complications. There is soft tissue swelling over the left temporal region. CT bone windows are unremarkable. The visualized paranasal sinuses and mastoid air cells are clear. Intracranially the ventricular system and cerebral sulci are prominent consistent with cerebral atrophy. No intracranial or intracerebral hemorrhage is identified and there is no mass effect or midline shift. No areas of decreased attenuation suspicious for evolving infarct or edema are noted. Following contrast-enhancement, no enhancing intracranial lesions or vascular abnormalities are identified. Are identified. Procedure Note Jesús Gonzalez Jr., M.D. - 12/01/2024 EXAM: CT HEAD WITHOUT AND WITH IV CONTRAST COMPARISON: None FINDINGS: Head CT was performed without and following administration ofintravenous contrast. 80 cc of Omnipaque 300 was utilized intravenouslywithout complications. There is soft tissue swelling over the lefttemporal region. CT bone windows are unremarkable. The visualized paranasal sinuses and mastoid air cells areclear. Intracranially the ventricular system and cerebral sulci areprominent consistent with cerebral atrophy. No intracranial orintracerebral hemorrhage is identified and there is no mass effect or midline shift. No areas of decreased attenuationsuspicious for evolving infarct or edema are noted. Followingcontrast-enhancement, no enhancing intracranial lesions or vascularabnormalities are identified. Are identified. IMPRESSION: No acute intracranial abnormality or evidence of intracranial metastaticdisease or vascular abnormality. us Elsi Goldsmith M.D. [facility] [place] PROCEDURES Final Resul t * (ABNORMAL) Glucose, POCT (11/14/2024 8:15 AM INSTRUCTOR [employer]UCATION) Only the most recent of10 resultswithin the time period is included. Glucose, POCT, B 271(H) 70 - 140 mg/dL 11/14/2024 8:17 AM INSTRUCTOR PHYSICAL EDUCATION PCDE Site Capillary 11/14/2024 8:17 AM INSTRUCTOR PH[employer]UCATION PCDE Blood 11/14/2024 8:15 AM INSTRUCTOR PHYSICAL EDUCATION 11/14/2024 8:18 AM INSTRUCTOR PHYSICAL EDUCATION us Unknown Provider LAB POCT ORDERABLES-MANUAL Aishwarya l Result [facility] [address] [place] [address], [facility] PCDE [facility] POC [address] [place] [address] * (ABNORMAL) Hepatic Function Panel (11/14/2024 5:03 AM INSTRUCTOR PHYSICAL EDUCATION) Only the most recent of2 resultswithin the time period is included. Bilirubin, Total, S 0.4 0.0 - 1.2 mg/dL 11/14/2024 6:08 AM IN[employer]CTOR [employer]UCATION DTL Bilirubin, Direct, S <0.2 0.0 - 0.3 mg/dL 11/14/2024 6:08 AM INSTRUCTOR [employer]UCATION DTL Aspartate Aminotransferase (AST), S 14 8 - 48 U/L 11/14/2024 6:08 AM INSTRUCTOR PH[employer]ICAL EDUCATION DTL Alanine Aminotransferase (ALT), S <7(L) 7 - 55 U/L 11/14/2024 6:23 AM INSTRUCTOR PH[employer]ICAL EDUCATION DTL Alkaline Phosphatase, S 66 40 - 129 U/L 11/14/2024 6:08 AM INSTRUCTOR PHYSICAL EDUCATION DTL Albumin, S 3.7 3.5 - 5.0 g/dL 11/14/2024 6:08 AM INSTRUCTOR PHYSICAL EDUCATION DTL Protein, Total, S 6.0(L) 6.3 - 7.9 g/dL 11/14/2024 6:08 AM INSTRUCTOR PHYSICAL EDUCATION DTL Blood (Blood, Venous) 11/14/2024 5:03 AM INSTRUCTOR PHYSICAL EDUCATION 11/14/2024 5:46 AM INSTRUCTOR PHYSICAL EDUCATION Nixon Gamino M.D. LAB BLOOD ADD-ON Final Resul t [facility] [address] [place] [address], [facility] DTL [facility] [address] [place] [address] * (ABNORMAL) Cystatin C with Estimated GFR (11/14/2024 5:03 AM INSTRUCTOR PHYSICAL EDUCATION) Only the most recent of2 resultswithin the time period is included. Pathologist [facility] eGFR by Cystatin C 42(L) >60 mL/min/BSA 11/14/2024 6:08 AM INSTRUCTOR PHYSICAL EDUCATION DTL Comment: Estimated GFR calculated using the CKD-EPI Cystatin C (2012) equation. ----ADDITIONAL INFORMATION---- Cystatin C-based eGFR may differ substantially from creatinine- based eGFR in patients with abnormal muscle mass or acutely changing renal function. Please interpret together with relevant clinical features. On 04/14/2021 the cystatin C assay method changed. Cystatin C eGFR results > 50 ml/min/1.73m2 are approximately 10% lower with the new assay. Cystatin C 1.57(H) 0.67 - 1.21 mg/L 11/14/2024 6:08 AM INSTRUCTOR PHYSICAL EDUCATION DTL Blood (Blood, Venous) 11/14/2024 5:03 AM INSTRUCTOR PHYSICAL EDUCATION 11/14/2024 5:46 AM INSTRUCTOR PHYSICAL EDUCATION us Jeyson Mason M.D. LAB BLOOD ADD-ON Final Resu lt [facility] [address] [place] [address], [facility] [address] [place] [address] * (ABNORMAL) CBC without Differential (11/14/2024 5:03 AM INSTRUCTOR PHYSICAL EDUCATION) Only the most recent of5 resultswithin the time period is included. Hemoglobin 10.2(L) 13.2 - 16.6 g/dL 11/14/2024 5:44 AM INSTRUCTOR [employer]ICAL EDUCATION DTL Hematocrit 31.4(L) 38.3 - 48.6 % 11/14/2024 5:44 AM INSTRUCTOR PHYSICAL EDUCATION DTL Erythrocytes 3.77(L) 4.35 - 5.65 x10(12)/L 11/14/2024 5:44 AM INSTRUCTOR PHYSICAL EDUCATION DTL MCV 83.3 78.2 - 97.9 fL 11/14/2024 5:44 AM INSTRUCTOR PHYSICAL EDUCATION DTL RBC Distrib Width 15.7(H) 11.8 - 14.5 % 11/14/2024 5:44 AM INSTRUCTOR PHYSICAL EDUCATION DTL Platelet Count 169 135 - 317 x10(9)/L 11/14/2024 5:44 AM INSTRUCTOR PHYSICAL EDUCATION DTL Leukocytes 5.6 3.4 - 9.6 x10(9)/L 11/14/2024 5:44 AM INSTRUCTOR PHYSICAL EDUCATION DTL Blood (Blood, Venous) 11/14/2024 5:03 AM INSTRUCTOR PHYSICAL EDUCATION 11/14/2024 5:30 AM INSTRUCTOR PHYSICAL EDUCATION us Elaina Beltran M.D. LAB BLOOD ADD-ON Final Resu lt Performing Organization Address City/[facility]/ZIP Co de Phone Number [facility] [address] [place] [address], [facility] [address] [place] [address] * Phosphorus Inorganic (11/14/2024 5:03 AM INSTRUCTOR PHYSICAL EDUCATION) Only the most recent of7 resultswithin the time period is included. Phosphorus (Inorganic), S 3.2 2.5 - 4.5 mg/dL 11/14/2024 6:08 AM INSTRUCTOR PHYSICAL EDUCATION DTL Blood (Blood, Venous) 11/14/2024 5:03 AM INSTRUCTOR PHYSICAL EDUCATION 11/14/2024 5:46 AM INSTRUCTOR PHYSICAL EDUCATION us Elaina Beltran M.D. LAB BLOOD ADD-ON Final Resu lt Performing Organization Address [facility]/ZIP Co de Phone Number [facility] [address] [place] [address], [facility] [address] [place] [address] * Magnesium (11/14/2024 5:03 AM INSTRUCTOR PHYSICAL EDUCATION) Only the most recent of6 resultswithin the time period is included. Magnesium, S 1.9 1.7 - 2.3 mg/dL 11/14/2024 6:08 AM INSTRUCTOR PHYSICAL EDUCATION DTL Blood (Blood, Venous) 11/14/2024 5:03 AM INSTRUCTOR PHYSICAL EDUCATION 11/14/2024 5:46 AM INSTRUCTOR PHYSICAL EDUCATION us Elaina Beltran M.D. LAB BLOOD ADD-ON Final Resu lt Performing Organization Address [facility]/ZIP Co de Phone Number [facility] [address] [place] [address], [facility] [address] [place] [address] * (ABNORMAL) Basic Metabolic Panel (11/14/2024 5:03 AM INSTRUCTOR PHYSICAL EDUCATION) Only the most recent of6 resultswithin the time period is included. Potassium, S 4.7 3.6 - 5.2 mmol/L 11/14/2024 6:08 AM INSTRUCTOR PHYSICAL EDUCATION DTL Sodium, S 135 135 - 145 mmol/L 11/14/2024 6:08 AM INSTRUCTOR PHYSICAL EDUCATION DTL Chloride, S 97(L) 98 - 107 mmol/L 11/14/2024 6:08 AM INSTRUCTOR PHYSICAL EDUCATION DTL Bicarbonate, S 26 22 - 29 mmol/L 11/14/2024 6:08 AM INSTRUCTOR PHYSICAL EDUCATION DTL Anion Gap 12 7 - 15 11/14/2024 6:08 AM INSTRUCTOR PHYSICAL EDUCATION DTL BUN (Blood Urea Nitrogen), S 29(H) 8 - 24 mg/dL 11/14/2024 6:08 AM INSTRUCTOR PHYSICAL EDUCATION DTL Creatinine 0.84 0.74 - 1.35 mg/dL 11/14/2024 6:08 AM INSTRUCTOR PHYSICAL EDUCATION DTL Estimated GFR (eGFR) >90 >=60 mL/min/BSA 11/14/2024 6:08 AM INSTRUCTOR PHYSICAL EDUCATION DTL Comment: Estimated GFR calculated using the 2020 CKD_EPI creatinine equation. Calcium, Total, S 9.1 8.8 - 10.2 mg/dL 11/14/2024 6:08 AM INSTRUCTOR PHYSICAL EDUCATION DTL Glucose, S 338(H) 70 - 140 mg/dL 11/14/2024 6:08 AM INSTRUCTOR PHYSICAL EDUCATION DTL Blood (Blood, Venous) 11/14/2024 5:03 AM INSTRUCTOR PHYSICAL EDUCATION 11/14/2024 5:46 AM INSTRUCTOR PHYSICAL EDUCATION Elaina Beltran M.D. LAB BLOOD ADD-ON Final Resu lt [facility] [address] [place] [address], [place] [facility] [address] [place] [address] * (ABNORMAL) Potassium (11/13/2024 4:27 PM INSTRUCTOR PHYSICAL EDUCATION) Potassium, S 5.8(H) 3.6 - 5.2 mmol/L 11/13/2024 5:05 PM INSTRUCTOR PHYSICAL EDUCATION DTL Blood (Blood, Venous) 11/13/2024 4:27 PM INSTRUCTOR PHYSICAL EDUCATION 11/13/2024 4:54 PM INSTRUCTOR PHYSICAL EDUCATION us Mirlande Edmond Darling APRN C.N.P., D.N.P. LAB BLOOD ADD -ON Final Result [facility] [address] [place] [address], [facility] [address] [place] [address] * IR Gastrostomy Tube Placement (11/13/2024 11:50 AM INSTRUCTOR PHYSICAL EDUCATION) Anatomical Region Laterality Modality Abdomen, Vascular Interventi onal RST LOS, Vascular Interventional ARZ LOS, Vascular Interventional FLA LOS N/A X-Ray Angiography Impressions 11/13/2024 12:32 PM INSTRUCTOR PHYSICAL EDUCATION Placement of a 14 Citizen [place] percutaneous gastrostomy tube. Nothing by mouth or tube for 2 hours (strict). Then use of mouth or tube for water, medications, and/or tube feeds per Nutrition note/order. Exchange tube in 3-5 months. Contact the [facility] clinic at [phone] to schedule the tube exchange. NR Narrative 11/13/2024 12:32 PM INSTRUCTOR PHYSICAL EDUCATION EXAM: IR GASTROSTOMY TUBE PLACEMENT CLINICAL HISTORY: 64-year-old male patient which in October 2023 underwent liver transplantation. He is now in need for enteral feeding and gastrostomy tube placement has been requested. Pre-Procedure Diagnosis: Eating disorder. Indication: Feeding. TECHNIQUE: T-fastener. After informed consent was obtained from the patient, the patient was brought to the interventional radiology suite and placed in a supine position. A limited ultrasound of the abdomen was performed to delineate the edge of the liver. The abdomen was then prepped and draped in the normal sterile fashion. The patient already had a nasogastric tube in place. The stomach was inflated through the nasogastric tube. A suitable site for percutaneous access into the stomach was located with fluoroscopy. The skin and superficial soft tissues were anesthetized with 1% lidocaine. A T-fastener (SAF-T-PEXY) was then deployed into the stomach under fluoroscopy, gas was aspirated, and contrast was injected, confirming position within the stomach. The T-fastener was released and secured to the skin. A second T-fastener was placed in an identical manner. Using an 18 gauge needle, access was gained into the stomach, and position was confirmed with aspiration of gas and contrast injection. Bentson wire was then advanced into the stomach toward the antrum. The needle was removed, the tract was serially dilated, and a 22F peel-away sheath was advanced over the wire. Through the sheath, a gastrostomy tube was then placed. The balloon was filled with dilute contrast and the external retention disc was adjusted to the height noted below. Contrast was injected, confirming position within the stomach. The catheter was then capped. No immediate complication. A sterile dressing was applied. The nasogastric tube was then removed. No complications. Tube Type: Gastrostomy, [place]. Tube Connection: ENFit. Tube Size: 14 Citizen [place]. Low Profile: No. Disc Height: Two cm. Balloon Volume: Five mL. PREPROCEDURE: Patient seen and evaluated. Allergies, pertinent medications, and history reviewed. Discussed risks, benefits, alternatives for procedure, and obtained informed consent. Patient understands information and questions answered. Immediately prior to starting the procedure, in the presence of the assisting personnel, procedural pause was conducted to verify correct patient identity and verification of procedure to be performed, and as applicable, correct side and site, correct patient position, availability of implants, special equipment, or special requirements, and all image and specimen identification data. The roles and responsibilities of care team members, residents, and fellows were discussed. Sedation provided by Anesthesiology. Procedure Note Patience Armstrong M.D. - 11/13/2024 EXAM: IR GASTROSTOMY TUBE PLACEMENT CLINICAL HISTORY: 64-year-old male patient which in October 2023underwent liver transplantation. He is now in need for enteral feeding andgastrostomy tube placement has been requested. Pre-Procedure Diagnosis: Eating disorder. Indication: Feeding. TECHNIQUE: T-fastener. After informed consent was obtained from the patient, the patient wasbrought to the interventional radiology suite and placed in a supineposition. A limited ultrasound of the abdomen was performed to delineatethe edge of the liver. The abdomen was then prepped and draped in the normal sterile fashion. The patient alreadyhad a nasogastric tube in place. The stomach was inflated through thenasogastric tube. A suitable site for percutaneous access into the stomach was located withfluoroscopy. The skin and superficial soft tissues were anesthetized with1% lidocaine. A T-fastener (SAF-T-PEXY) was then deployed into the stomachunder fluoroscopy, gas was aspirated, and contrast was injected, confirming position within thestomach. The T-fastener was released and secured to the skin. A secondT-fastener was placed in an identical manner. Using an 18 gauge needle,access was gained into the stomach, and position was confirmed with aspiration of gas and contrast injection.[employer] wire was then advanced into the stomach toward the antrum. Theneedle was removed, the tract was serially dilated, and a 22F peel-awaysheath was advanced over the wire. Through the sheath, a gastrostomy tube was then placed. The balloon wasfilled with dilute contrast and the external retention disc was adjustedto the height noted below. Contrast was injected, confirming positionwithin the stomach. The catheter was then capped. No immediate complication. A sterile dressing was applied.The nasogastric tube was then removed. No complications. Tube Type: Gastrostomy, [place]. Tube Connection: ENFit. Tube Size: 14 Citizen [place]. Low Profile: No. Disc Height: Two cm. Balloon Volume: Five mL. PREPROCEDURE: Patient seen and evaluated. Allergies, pertinentmedications, and history reviewed. Discussed risks, benefits, alternativesfor procedure, and obtained informed consent. Patient understandsinformation and questions answered. Immediately prior to starting the procedure, in the presence of the assistingpersonnel, procedural pause was conducted to verify correct patientidentity and verification of procedure to be performed, and as applicable,correct side and site, correct patient position, availability of implants, special equipment, or specialrequirements, and all image and specimen identification data. The rolesand responsibilities of care team members, residents, and fellows werediscussed. Sedation provided by Anesthesiology. IMPRESSION: Placement of a 14 Citizen [place] percutaneous gastrostomy tube. Nothing by mouthor tube for 2 hours (strict). Then use of mouth or tube for water,medications, and/or tube feeds per Nutrition note/order. Exchange tube in3-5 months. Contact the [facility] at [phone] to schedule the tube exchange. NR us Mirlande Darling APRN, C.N.P., D.N.P. IMG IR PROCED URES Final Result * Vitamin A and Vitamin E (11/11/2024 5:54 AM INSTRUCTOR PHYSICAL EDUCATION) Vitamin A 57.5 32.5 - 78.0 mcg/dL 11/13/2024 1:59 PM INSTRUCTOR PHYSICAL EDUCATION [facility] Comment: ----ADDITIONAL INFORMATION---- This test was developed and its performance characteristics determined by [facility] in a manner consistent with CLIA requirements. This test has not been cleared or approved by the U.S. Food and Drug Administration. A-Tocopherol, Vitamin E 13.2 5.5 - 17.0 mg/L 11/14/2024 7:00 AM INSTRUCTOR PHYSICAL EDUCATION [facility] Blood (Blood, Venous) 11/11/2024 5:54 AM INSTRUCTOR PHYSICAL EDUCATION 11/11/2024 10:25 AM INSTRUCTOR PHYSICAL EDUCATION Belkis Bowling APRNN.P., D.N.P. LAB BLOOD NON ADD-ON Final Result Performing Organization Address [facility]/ZIP Co de Phone Number [facility] [address] [place] [address] [facility] [address] [place] [address] [place] [address] * Copper (11/11/2024 5:54 AM INSTRUCTOR PHYSICAL EDUCATION) Pathologist [facility] Copper, S 101 73 - 129 mcg/dL 11/11/2024 12:26 PM INSTRUCTOR PHYSICAL EDUCATION [facility] Comment: ----ADDITIONAL INFORMATION---- This test was developed and its performance characteristics determined by [facility] in a manner consistent with CLIA requirements. This test has not been cleared or approved by the U.S. Food and Drug Administration. Blood (Blood, Venous) 11/11/2024 5:54 AM INSTRUCTOR PHYSICAL EDUCATION 11/11/2024 9:22 AM INSTRUCTOR PHYSICAL EDUCATION Ximena Hutchinson APRN.N.P., D.N.P. LAB BLOOD NON ADD-ON Final Result Performing Organization Address [facility]/ZIP Co de Phone Number [facility] [address] [place] [address] [facility] [address] [place] [address] [place] [address] * (ABNORMAL) Zinc (11/11/2024 5:54 AM INSTRUCTOR PHYSICAL EDUCATION) Zinc, S 56(L) 60 - 106 mcg/dL 11/11/2024 12:26 PM INSTRUCTOR PHYSICAL EDUCATION [facility] Comment: ----ADDITIONAL INFORMATION---- This test was developed and its performance characteristics determined by [facility] in a manner consistent with CLIA requirements. This test has not been cleared or approved by the U.S. Food and Drug Administration. Blood (Blood, Venous) 11/11/2024 5:54 AM INSTRUCTOR PHYSICAL EDUCATION 11/11/2024 9:22 AM INSTRUCTOR PHYSICAL EDUCATION Mirlande Darling APRN, C.N.P., D.N.P. LAB BLOOD NON ADD-ON Final Result [facility] [address] [place] [address] [facility] [address] [place] [address] [place] [address] * Testosterone, Total and Free (11/11/2024 5:54 AM INSTRUCTOR PHYSICAL EDUCATION) Pathologist [facility] Testosterone, Free, S 6.35 3.67 - 13.9 ng/dL 11/17/2024 2:58 PM INSTRUCTOR PHYSICAL EDUCATION [facility] Comment: ----ADDITIONAL INFORMATION---- This test was developed and its performance characteristics determined by [facility] in a manner consistent with CLIA requirements. This test has not been cleared or approved by the U.S. Food and Drug Administration. Testosterone, Total by Mass Spectrometry, Serum 263 240 - 950 ng/dL 11/15/2024 10:52 AM INSTRUCTOR PHYSICAL EDUCATION [facility] Comment: ----ADDITIONAL INFORMATION---- Testing performed by Liquid Chromatography-Tandem Mass Spectrometry (LC-MS/MS). This test was developed and its performance characteristics determined by [facility] in a manner consistent with CLIA requirements. This test has not been cleared or approved by the U.S. Food and Drug Administration. Blood (Blood, Venous) 11/11/2024 5:54 AM INSTRUCTOR PHYSICAL EDUCATION 11/11/2024 8:28 AM INSTRUCTOR PHYSICAL EDUCATION Mirlande Darling APRN C.N.P., D.N.P. LAB BLOOD NON ADD-ON Final Result Performing Organization Address [facility] Co de Phone Number [facility] [address] [place] [address] [facility] [address] [place] [address] [place] [address] * Vitamin B12 Assay (11/11/2024 5:54 AM INSTRUCTOR PHYSICAL EDUCATION) Vitamin B12 Assay, S 382 180 - 914 ng/L 11/11/2024 8:48 AM INSTRUCTOR PHYSICAL EDUCATION [facility] Comment: ----ADDITIONAL INFORMATION---- In patients being evaluated for vitamin B12 deficiency who have intrinsic factor blocking antibodies (IFBA), false elevations of B12 may occur due to IFBA interference thus potentially obscuring a physiological deficiency of B12. If observed B12 concentrations are discordant with clinical presentation, measurement of methylmalonic acid (MMA) should be considered. Blood (Blood, Venous) 11/11/2024 5:54 AM INSTRUCTOR PHYSICAL EDUCATION 11/11/2024 6:31 AM INSTRUCTOR PHYSICAL EDUCATION Mirlande Darling APRN, C.N.P., D.N.P. LAB BLOOD ADD -ON Final Result Performing Organization Address [facility] de Phone Number [facility] [address] [place] [address], [facility] DTL [facility] [address] [place] [address] * Potassium, Random, Urine (11/11/2024 12:22 AM INSTRUCTOR PHYSICAL EDUCATION) Potassium, Random, U 50 mmol/L 11/11/2024 1:00 AM INSTRUCTOR PHYSICAL EDUCATION DTL Comment: ----REFERENCE VALUE---- Random urine potassium may be interpreted in conjunction with serum potassium, using both values to calculate fractional excretion of potassium. Urine (Urine, Midstream) 11/11/2024 12:22 AM INSTRUCTOR PHYSICAL EDUCATION 11/11/2024 12:41 AM INSTRUCTOR PHYSICAL EDUCATION Belkis Bowling APRNN.P., D.N.P. LAB URINE ORD ERABLES Final Result [facility] [address] [place] [address], [place] [facility] [address] [place] [address] * DX Abdomen Portable Anterior Posterior 1 View (11/10/2024 11:55 AM INSTRUCTOR PHYSICAL EDUCATION) Anatomical Region Laterality Modality Abdomen, Abdominal RST LOS, Abdominal ARZ LOS, Abdominal FLA LOS N/A Digital Radiography Impressions 11/10/2024 12:04 PM INSTRUCTOR PHYSICAL EDUCATION Enteric tube and stylette projected over the distal stomach, which is at least moderately distended. TAVR. Leadless pacemaker. Embolization coils in the left upper quadrant. Narrative 11/10/2024 12:04 PM INSTRUCTOR PHYSICAL EDUCATION EXAM: DX ABDOMEN PORTABLE ANTERIOR POSTERIOR 1 VIEW Procedure Note Kayode Chavez D.O. - 11/10/2024 EXAM: DX ABDOMEN PORTABLE ANTERIOR POSTERIOR 1 VIEW IMPRESSION: Enteric tube and stylette projected over the distal stomach, which is atleast moderately distended. TAVR. Leadless pacemaker. Embolization coilsin the left upper quadrant. Jeyson Mason M.D. IMG DIAGNOSTIC IMAGING PROC EDURES Final Result * Prothrombin Time (PT) (11/10/2024 8:27 AM INSTRUCTOR PHYSICAL EDUCATION) Prothrombin Time, P 11.4 9.4 - 12.5 sec 11/10/2024 8:49 AM INSTRUCTOR PHYSICAL EDUCATION METH INR 1.0 0.9 - 1.1 11/10/2024 8:49 AM INSTRUCTOR PHYSICAL EDUCATION METH Comment: ----ADDITIONAL INFORMATION---- Standard intensity warfarin therapeutic range: 2.0 to 3.0 High intensity warfarin therapeutic range: 2.5 to 3.5 Blood (Blood, Venous) 11/10/2024 8:27 AM INSTRUCTOR PHYSICAL EDUCATION 11/10/2024 8:43 AM INSTRUCTOR PHYSICAL EDUCATION us Mirlande Darling APRN C.N.P., D.N.P. LAB BLOOD ADD -ON Final Result [facility] [address] [place] [address], [facility] [address] [place] [address] * (ABNORMAL) Lipid Panel (10/20/2024 7:04 AM INSTRUCTOR PHYSICAL EDUCATION) Triglycerides 186(H) mg/dL 10/20/2024 8:02 AM INSTRUCTOR PHYSICAL EDUCATION DTL Comment: ----REFERENCE VALUE---- Normal: <150 mg/dL Borderline High: 150-199 mg/dL High: 200-499 mg/dL Very High: > or =500 mg/dL Cholesterol, Total 148 mg/dL 2023 7:55 AM INSTRUCTOR PHYSICAL EDUCATION DTL Comment: ----REFERENCE VALUE---- Desirable: < 200 mg/dL Borderline High: 200 - 239 mg/dL High: > or = 240 mg/dL Cholesterol, LDL, Calculated 77 mg/dL 10/20/2024 8:02 AM INSTRUCTOR PHYSICAL EDUCATION DTL Comment: ----REFERENCE VALUE---- Desirable: <100 mg/dL Above Desirable: 100-129 mg/dL Borderline High: 130-159 mg/dL High: 160-189 mg/dL Very High: >=190 mg/dL ----ADDITIONAL INFORMATION---- LDL cholesterol calculated using the Santamaria/NIH equation. Cholesterol, HDL, S 40 >=40 mg/dL 10/20/2024 8:02 AM INSTRUCTOR PHYSICAL EDUCATION DTL Cholesterol, Non-HDL, Calculated 108 mg/dL 10/20/2024 8:02 AM INSTRUCTOR PHYSICAL EDUCATION DTL Comment: ----REFERENCE VALUE---- Desirable: <130 mg/dL Above Desirable: 130-159 mg/dL Borderline High: 160-189 mg/dL High: 190-219 mg/dL Very High: > or =220 mg/dL Fasting (8 HR or more) No 10/20/2024 7:04 AM INSTRUCTOR PHYSICAL EDUCATION DTL Blood (Blood, Venous) 10/20/2024 7:04 AM INSTRUCTOR PHYSICAL EDUCATION 10/20/2024 7:28 AM INSTRUCTOR PHYSICAL EDUCATION Aide Welch P.A.-C., M.S. LAB BLOOD ADD-O N Final Result Performing Organization Address [facility] [place] [address] * (ABNORMAL) Hemoglobin A1c (10/20/2024 7:04 AM INSTRUCTOR PHYSICAL EDUCATION) Hemoglobin A1c, B 6.8(H) 4.0 - 5.6 % 10/20/2024 8:18 AM INSTRUCTOR PHYSICAL EDUCATION DTL Comment: Hemoglobin A1c values greater than or equal to 6.5 percent are diagnostic for diabetes mellitus. Diagnosis should be confirmed by repeat testing. In diabetic patients, HbA1c goals should be discussed with healthcare provider. Blood (Blood, Venous) 10/20/2024 7:04 AM INSTRUCTOR PHYSICAL EDUCATION 10/20/2024 7:14 AM INSTRUCTOR PHYSICAL EDUCATION Aide Welch P.A.-C., M.S. LAB BLOOD ADD-O N Final Result Performing Organization Address [facility] Co de Phone Number [id number] [place] [address] * Albumin, Random, Urine (04/07/2024 2:55 PM CDT) Albumin, Random, U 47.0 mg/L 2023 9:58 AM CDT DTL Comment: ----ADDITIONAL INFORMATION---- This test has been modified from the electrotyper apprentice's instructions. Its performance characteristics were determined by [facility] in a manner consistent with CLIA requirements. This test has not been cleared or approved by the U.S. Food and Drug Administration. Creatinine 286 mg/dL 04/07/2024 3:52 PM CDT DTL Albumin/Creatinine Ratio 16 <17 mg/g 04/08/2024 9:58 AM CDT DTL Urine (Urine, Midstream) 04/07/2024 2:55 PM CDT 04/07/2024 3:16 PM CDT Kelly Mendez APRN, C.N.P., D.N.P. LAB URINE OR DERABLES Final Result Performing Organization Address City[facility]/ZIP Co de Phone Number [facility] [address] [place] [address], [place] [facility] [address] [place] [address] * HIV-1/-2 Ag and Ab Screen, Plasma (11/09/2023 7:56 PM INSTRUCTOR PHYSICAL EDUCATION) Pathologist [facility] HIV-1/-2 Ag and Ab Screen, P Negative Negative 11/10/2023 8:33 AM INSTRUCTOR PHYSICAL EDUCATION [facility] Comment: Negative result does not rule out HIV infection. If exposure to HIV infection occurred <14 days ago, contact the laboratory to request addition of HIV-1/HIV-2 RNA detection, Plasma (HIP12). Blood (Blood, Venous) 11/09/2023 7:56 PM INSTRUCTOR PHYSICAL EDUCATION 11/10/2023 7:45 AM INSTRUCTOR PHYSICAL EDUCATION Elaina Beltran M.D. LAB MICROBIOLOGY - BLOOD OR DERABLES Final Result Performing Organization Address [facility] Co de Phone Number [facility] [address] [place] [address] [facility] [address] [place] [address] * Hepatitis B Surface Antigen (07/17/2021 1:21 PM CDT) HBs Antigen, S Negative Negative 07/18/2021 10:45 AM CDT [facility] Blood (Blood, Peripheral Draw) 07/17/2021 1:21 PM CDT 07/18/2021 8:27 AM CDT Kathya Diaz M.D. LAB MICROBIOLOGY - BLOOD ORDERAB LES Final Result Performing Organization Address [facility]/ZIP Co de Phone Number [facility] [address] [place] [address] [facility] Dept. of Laboratory Medicine and Pathology [address] [place] [address] from Last 3 Months or Most Recently Relevant to Health Maintenance Additional Health Concerns Infection Onset Date Last Indicated Protective Environment 11/10/2023 Insurance [facility] Advance Directives For more information, please contact: [phone] Documents on File Type Date Recorded Patient Addiction Social Worker Expl anation Advance Directives 07/16/2023 9:52 AM Millicent Perry HCPOA/ADVOCATE/AGENT/R EPRESENTATIVE/SURROGAT E Advance Directives 05/09/2023 4:04 PM INVA LID Advance Directives 01/05/2016 12:00 AM Leg acy document. See document viewer. * Full Code (Latest Code Status on File) Date Activated Date Inactivated Comments 11/10/2024 8:13 AM 11/14/2024 2:38 PM Question Answer Comments Full Code: Discussed * Full Code Date Activated Date Inactivated Comments 05/20/2024 5:27 PM 05/21/2024 3:18 PM Question Answer Comments Full Code: Discussed * Full Code Date Activated Date Inactivated Comments 11/09/2023 7:21 PM 11/15/2023 5:06 PM Question Answer Comments Full Code: Discussed * Full Code Date Activated Date Inactivated Comments 11/09/2023 7:11 PM 11/09/2023 7:21 PM Question Answer Comments Full Code: Discussed * Full Code Date Activated Date Inactivated Comments 09/30/2023 3:02 AM 09/30/2023 5:21 PM Question Answer Comments Full Code: Discussed Healthcare Agents on File Name Relationship Healthcare Agent Relationshi p Communication Millicent Perry Spouse Health Care Agent [email or web address] [email or web address] Ronn [place] Brother First Alternate Health Care Agent Care Teams Pulping Machine Operator Relationship Specialty Start Date End Date Kelly Mendez APRN, C.N.P., D.N.P. [address] [place] [phone] PCP - General Internal Medicine 12/05/[address] [facility] [place] mary Little [facility] lab Laboratory Medicine 02/26/23
--- OUTSIDE RECORDS SUMMARY | 2025-02-02 22:48 | XMS_ITS | Encounter Summary ---
Author Organization [place] Address [address] [place] [address]. [place] [address] Care Team Providers Care Supervisor Framing Mill Name Role Phone Tennille Goddard APRN ICE SKATING TEACHER Unavailable [phone] Beatris Ty [facility] Unavailable [phone] Dov Alston [facility] Unavailable Unavailable Tennille Goddard APRN ICE SKATING TEACHER Primary Care Provider + Dov Alston [facility] Unavailable Unavailable Dov Alston [facility] Unavailable Unavailable Reason for Visit * Reason Onset Date Comments Panel Management 09/09/2019 Encounter Details Date Type Department Care Team (Late st Contact Info) Description 09/09/2019 MyC Medical Advice [address], [address] [place] [address] Tennille Goddard APRN ICE SKATING TEACHER [address] [place] [address] Panel Management Social History Tobacco Use Types Packs/Day Years [...] on file Legal Sex Male 3:09 AM CONTENT ARCHITECT Gender Identity Not on file Sexual Orientation Not on file 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 Panel Management Review Patient has the following on his problem list: Diabetes ASA: Passed Last A1C Lab Results Component Value Date A1C 7.5 06/12/2019 A1C 7.3 01/07/2019 A1C 7.1 01/24/2018 A1C 7.1 04/05/2017 A1C 6.2 10/05/2016 A1C tested: FAILED Last LDL: Lab Results Component Value Date CHOL 211 06/12/2019 Lab Results Component Value Date HDL 45 06/12/2019 Lab Results Component Value Date LDL 117 06/12/2019 Lab Results Component Value Date TRIG 245 06/12/2019 Lab Results Component Value Date CHOLHDLRATIO 3.6 11/24/2014 Lab Results Component Value Date NHDL 166 06/12/2019 Is the patient on a Statin? YES Is the patient on Aspirin? YES Medications HMG CoA Reductase Inhibitors atorvastatin (LIPITOR) 10 MG tablet Salicylates aspirin (ASPIR-LOW) 81 MG EC tablet Last three blood pressure readings: BP Readings from Last 3 Encounters: 06/16/19 120/72 01/07/19 130/66 02/18/18 133/79 Date of last diabetes office visit: 06/16/19 Tobacco History: History Smoking Status ??? Former Smoker ??? Packs/day: 1.50 ??? Years: 10.00 ??? Quit date: 06/07/2010 Smokeless Tobacco ??? Former User Comment: 1 pk x 15 yrs Hypertension Last three blood pressure readings: BP Readings from Last 3 Encounters: 06/16/19 120/72 01/07/19 130/66 02/18/18 133/79 Blood pressure: Passed HTN Guidelines: Less than 140/90 Composite cancer screening Chart review shows that this patient is due/due soon for the following Colonoscopy Summary: Patient is due/failing the following: COLONOSCOPY, LDL and PHYSICAL Action needed: Patient needs office visit for physical, labs. and Patient needs referral/order: colonoscopy Type of outreach: Sent eToro message. Questions for provider review: None Antonia Dai MA Chart routed to Care Team . documented in this encounter Plan of Treatment Not on file documented as of this encounter Visit Diagnoses Not on filedocumented in this encounter Additional Health Concerns Assessment Noted Time PHQ-9 Depression Total Score: 0 01/07/20 19 6:53 PM CONTENT ARCHITECT documented as of this encounter Care Teams Supervisor Framing Mill Relationship Specialty Start Date End Date Tennille Goddard APRN ICE SKATING TEACHER [address] [place] [address] PCP - General Nurse Practitioner - Family 08/18/19 Tennille Goddard APRN ICE SKATING TEACHER [address] [place] [address] Assigned PCP 12/15/18 01/07/22 Beatris Ty [facility] [address] [place] [address] Pharmacist Pharmacist 04/08/19 01/12/21 Dov Alston [facility] [address] [place] [address] Pharmacist Pharmacist 06/16/19 Dov Alston [facility] [address] [place] [address] Assigned MTM Pharmacist 04/15/22 08/04/22 Dov Alston [facility] [address] [address] Assigned MTM Pharmacist 08/16/22 10/27/22 documented as of this encounter
--- OUTSIDE RECORDS SUMMARY | 2025-02-02 22:48 | XMS_ITS | Encounter Summary ---
Author Organization [place] Address [address] [place] [address] Care Team Providers Care Supervisor Steffen House Name Role Phone No Ref-Primary, Physician Primary Care Provider Tennille Goddard APRN SANE NURSE Unavailable [phone] [facility] Unavailable [phone] [facility] Unavailable Unavailable Tennille Goddard APRN SANE NURSE Primary Care Provider + Dov Alston [facility] Unavailable Unavailable Dov Alston 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 [address] [place] [address] Pharmacist Pharmacist 04/08/19 01/12/[address] [facility] [address] [place] [address] Pharmacist Pharmacist 06/16/[address] [facility] [address] [place] [address] Assigned MTM Pharmacist 04/15/22 08/04/[address] [facility] [facility] [address] [place] [address] Assigned MTM Pharmacist 08/16/22 10/27/22 documented as of this encounter
--- OUTSIDE RECORDS SUMMARY | 2025-02-02 22:49 | XMS_ITS | Encounter Summary ---
Author Organization [place] Address [address] [place] [address] Care Team Providers Care Marketing Assistant Manager Name Role Phone Wally Daniel MD Primary Care Provider Unavailable Wally Daniel MD Unavailable Unavai lable No Ref-Primary, Physician Primary Care Provider Tennille Goddard APRN COMPLIANCE PARALEGAL Unavailable [phone] Tennille Goddard APRN COMPLIANCE PARALEGAL Unavailable [phone] Beatris Ty [facility] Unavailable [phone] Dov Alston RP Unavailable Unavailable Tennille Goddard APRN COMPLIANCE PARALEGAL Primary Care Provider + Dov Alston RPH Unavailable Unavailable Dov Alston RPH Unavailable Unavailable Reason for Visit * Reason Onset Date Comments Care Team 05/24/2017 Encounter Details Date Type Department Care Team (Late st Contact Info) Description 05/24/2017 MyC Medical Advice [address] [address] Dov Alston [facility] [id number] [place] [address] Care Team Social History Tobacco Use Types Packs/Day Years [...] on file Legal Sex Male 3:[address] ENGINEER Gender Identity Not on file Sexual Orientation Not on file 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 He takes 4 grams tylenol /day for hbis knee pain and would like something else . mtm and pharm-d-4 have researched and feel he may benefit from low dose venlafaxine as he felt he had no knee pain when on the duloxetine? Pllan; 1. Lets try 37.5 mg daily venlafaxine trial x 2 weeks then increase to 75mg. If needed?--see how itgoes. Dov Alston [facility]. Medication Therapy Management Provider [phone] Frank Anna, Pharm-D-4. documented in this encounter Plan of Treatment Not on file documented as of this encounter Visit Diagnoses Diagnosis Other chronic pain- Primary documented in this encounter Additional Health Concerns Assessment Noted Time PHQ-9 Depression Total Score: 15 016 7:16 AM CDT documented as of this encounter Care Teams Marketing Assistant Manager Relationship Specialty Start Date End Date Wally Daniel MD PCP - General 12/17/03 12/08/18 Wally Daniel MD PCP - Assigned PCP 10/16/10 12/14/18 No Ref-Primary, Physician PCP - General 12/09/18 08/17/19 Tennille Goddard APRN COMPLIANCE [place]GAL [address] [place] [address] PCP - Assigned PCP 12/15/18 01/21/19 Tennille Goddard APRN COMPLIANCE [place]ALEGAL [address] [place] [address] PCP - General Nurse Practitioner - Family 08/18/19 Tennille Goddard APRN COMPLIANCE PARALEGAL [address] [email or web address] [place] [address] Assigned PCP 12/15/18 01/07/22 Beatris Ty [facility] [address] [place] [address] Pharmacist Pharmacist 04/08/19 01/12/21 [facility] [address] [place] [address] Pharmacist Pharmacist 06/16/19 [facility] [address] [place] [address] Assigned MTM Pharmacist 04/15/22 08/04/22 Dov Alston [facility] [address] [place] [address] Assigned MTM Pharmacist 08/16/22 10/27/22 documented as of this encounter
--- OUTSIDE RECORDS SUMMARY | 2025-02-02 22:49 | XMS_ITS | Encounter Summary ---
Author Organization [place] Address [address] [place] [address] Care Team Providers Care Machine Puller Over Name Role Phone Wally Daniel MD Primary Care Provider Unavailable Wally Daniel MD Unavailable Unavai lable No Ref-Primary, Physician Primary Care Provider Tennille Goddard APRN SILO WORKER Unavailable [phone] Tennille Goddard APRN SILO WORKER Unavailable [phone] Beatris Ty [facility] Unavailable [phone] Dov Alston RP Unavailable Unavailable Tennille Goddard APRN SILO WORKER Primary Care Provider + Dov Alston RPH Unavailable Unavailable Dov Alston RPH Unavailable Unavailable Reason for Visit * Reason Onset Date Comments Care Team 05/15/2017 Encounter Details Date Type Department Care Team (Late st Contact Info) Description 05/15/2017 MyC Medical Advice [address] [address] Dov Alston [facility] [id number] [place] [address] Care Team Social History Tobacco Use Types [...] on file 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 Will try 30mg qday x 1 week , then 30mg bid thereafter . rx sent to [facility]. Dov Alston Rph. Medication Therapy Management Provider [phone] documented in this encounter Plan of Treatment Not on file documented as of this encounter Visit Diagnoses Diagnosis Other chronic pain- Primary documented in this encounter Additional Health Concerns Assessment Noted Time PHQ-9 Depression Total Score: 15 016 7:16 AM CDT documented as of this encounter Care Teams Machine Puller Over Relationship Specialty Start Date End Date Wally Dainel MD PCP - General 12/17/03 12/08/18 Wally Daniel MD PCP - Assigned PCP 10/16/10 12/14/18 No Ref-Primary, Physician PCP - General 12/09/18 08/17/19 Tennille Goddard APRN SILO WORKER [address] [address] PCP - Assigned PCP 12/15/18 01/21/19 Tennille Goddard APRN SILO WORKER [address] [place] [id number] PCP - General Nurse Practitioner - Family 08/18/19 Tennille Goddard APRN SILO WORKER [address] [address] [address] Assigned PCP 12/15/18 01/07/22 Beatris Ty [facility] [address] [place] [address] Pharmacist Pharmacist 04/08/19 01/12/21 [facility] [address] [place] [address] Pharmacist Pharmacist 06/16/19 [facility] [address] [place] [address] Assigned MTM Pharmacist 04/15/22 08/04/22 [facility] [address] [place] [address] Assigned MTM Pharmacist 08/16/22 10/27/22 documented as of this encounter
--- OUTSIDE RECORDS SUMMARY | 2025-02-02 22:49 | XMS_ITS | Encounter Summary ---
Author Organization [place] Address [address] [place] [address] Care Team Providers Care Aerodynamicist Name Role Phone Tennille Goddard APRN REFUSE COLLECTOR SUPERVISOR Unavailable [phone] Beatris Ty [facility] Unavailable [phone] Dov Alston [facility] Unavailable Unavailable Tennille Goddard APRN REFUSE COLLECTOR SUPERVISOR Primary Care Provider + Dov Alston [facility] Unavailable Unavailable Dov Alston [facility] Unavailable Unavailable Encounter Details Date Type Department Care Team (Late st Contact Info) Description 01/06/2021 [facility] Medical Advice [address] [place] [facility] [place] [address] Dov Alston [facility] [address] [place] [address] Social History Tobacco Use Types Packs/Day Years [...] on file Legal Sex Male 3:09 AM 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 No / Unsure 01/05/2021 10:48 AM ELECTROPHYSIOLOGIST documented as of this encounter Miscellaneous Notes * Telephone Encounter - Dov Alston RP - 01/06/2021 11:40 AM CST I'm surprised the number were that good. I have not taken any medication or taken care of myself for 3 months. We will have to do our visit via video since I will be back in [place]. Things have been crazy. I'm an experiment. ?? Check out this link. [email or web address]-mdk-hours-[email or web address]-[email or web address]-[email or web address].html [facility] --explains why numbers so high --no meds x 3 months . Will restart meds on 01-17-21 when we have a video visit f/up. [facility] his parents both on the same day in November --he is grieving. Dov Alston [facility]. Medication Therapy Management Provider [phone] TROPHYSIOLOGIST documented in this encounter Plan of Treatment Not on file documented as of this encounter Visit Diagnoses Not on filedocumented in this encounter Additional Health Concerns Assessment Noted Time PHQ-9 Depression Total Score: 0 01/07/20 19 6:53 PM ELECTROPHYSIOLOGIST documented as of this encounter Care Teams Aerodynamicist Relationship Specialty Start Date End Date Tennille Goddard APRN REFUSE COLLECTOR SUPERVISOR [address] [place] [address] PCP - General Nurse Practitioner - Family 08/18/19 Tennille Goddard APRN REFUSE COLLECTOR SUPERVISOR [address] [place] [address] Assigned PCP 12/15/18 01/07/22 Beatris Ty [facility] [address] [place] [address] Pharmacist Pharmacist 04/08/19 01/12/21 Dov Alston RPH [address] [place] [address] Pharmacist Pharmacist 06/16/19 [place] [address] [place] [address] Assigned M[place] Pharmacist 04/15/22 08/04/22 Dov Alston [facility] [address] [place] [address] Assigned [place] Pharmacist 08/16/22 10/27/22 documented as of this encounter
--- OUTSIDE RECORDS SUMMARY | 2025-02-02 22:49 | XMS_ITS | Encounter Summary ---
Author Organization [place] Address [address] [place] [address]. [place] [address] Care Team Providers Care Energy Auditor Name Role Phone Tennille Goddard APRN SUPPLY CHAIN MANAGER Unavailable [phone] Dov Alston [facility] Unavailable Unavailable Tennille Goddard APRN SUPPLY CHAIN MANAGER Primary Care Provider + Dov Alston [facility] Unavailable Unavailable Dov Alston [facility] Unavailable Unavailable Encounter Details Date Type Department Care Team (Late st Contact Info) Description 06/03/2021 [facility] Advice [facility] [address] [place] [address] Tennille Goddard APRN [facility] [id number] [place] [address] Social History Tobacco Use Types Packs/Day Years [...] on file Legal Sex Male 3:09 AM YACHT HAND Gender Identity Not on file Sexual Orientation [...] Total Score: 0 01/07/20 19 6:53 PM YACHT HAND documented as of this encounter Care Teams Energy Auditor Relationship Specialty Start Date End Date Tennille Goddard APRN SUPPLY CHAIN MANAGER [address] [place] [address] PCP - General Nurse Practitioner - Family 08/18/19 Tennille Goddard APRN SUPPLY CHAIN MANAGER [address] [place] [address] Assigned PCP 12/15/18 01/07/22 oDv Alston [facility] [address] [place] [address] Pharmacist Pharmacist 06/16/19 Dov Alston [facility] [address] [place] [address] Assigned MTM Pharmacist 04/15/22 08/04/22 Dov Alston [facility] [address] [place] [address] Assigned MTM Pharmacist 08/16/22 10/27/22 documented as of this encounter
--- OUTSIDE RECORDS SUMMARY | 2025-02-02 22:49 | XMS_ITS | Encounter Summary ---
Author Organization [place] Address [address] [place] [address]. [place] [address] Care Team Providers Care Single Stayer Operator Name Role Phone Tennille Goddard APRN LEAD DENTAL ASSISTANT Unavailable [phone] Dov Alston [facility] Unavailable Unavailable Tennille Goddard APRN LEAD DENTAL ASSISTANT Primary Care Provider + Dov Alston [facility] Unavailable Unavailable Dov Alston [facility] Unavailable Unavailable Encounter Details Date Type Department Care Team (Late st Contact Info) Description 01/17/2021 [facility] [place] [address] [place] [address] Dov Alston, [facility] [address] [place] [address] Social History Tobacco Use Types Packs/Day Years [...] on file 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 No / Unsure 01/05/2021 10:48 AM SOLID GLASS ROD DOWEL MACHINE OPERATOR documented as of this encounter Plan of Treatment Not on file documented as of this encounter Visit Diagnoses Not on filedocumented in this encounter Additional Health Concerns Assessment Noted Time PHQ-9 Depression Total Score: 0 01/07/20 6:53 PM SOLID GLASS ROD DOWEL MACHINE OPERATOR documented as of this encounter Care Teams Single Stayer Operator Relationship Specialty Start Date End Date Tennille Goddard APRN LEAD DENTAL ASSISTANT [address] [place] [address] PCP - General Nurse Practitioner - Family 08/18/19 Tennille Goddard APRN LEAD DENTAL ASSISTANT [address] [place] [address] Assigned PCP 12/15/18 01/07/22 Dov Alston [facility] [address] [place] [address] Pharmacist Pharmacist 06/16/19 Dov Alston [facility] [address] [place] [address] Assigned MTM Pharmacist 04/15/22 08/04/22 Dov Alston [facility] [address] [place] [address] Assigned MTM Pharmacist 08/16/22 10/27/22 documented as of this encounter
--- OUTSIDE RECORDS SUMMARY | 2025-02-02 22:49 | XMS_ITS | Encounter Summary ---
Author Organization [place] Address [address] [place] [address] Care Team Providers Care Arc Cutter Name Role Phone Wally Daniel MD Primary Care Provider Unavailable Wally Daniel MD Unavailable Unavai lable No Ref-Primary, Physician Primary Care Provider Tennille Goddard APRN ALLIANCES CONSULTANT Unavailable [phone] Tennille Goddard APRN ALLIANCES CONSULTANT Unavailable [phone] Beatris Ty [facility] Unavailable [phone] Dov Alston [facility] Unavailable Unavailable Tennille Goddard APRN ALLIANCES CONSULTANT Primary Care Provider + Dov Alston [facility] Unavailable Unavailable Dov Alston RP Unavailable Unavailable Encounter Details Date Type Department Care Team (Late st Contact Info) Description 08/24/[address] [address] Wally Daniel MD Social History [...] on file 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 Gender Identity Not on file Sexual Orientation Not on file 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 as of this encounter Plan of Treatment Not on file documented as of this encounter Visit Diagnoses Not on filedocumented in this encounter Care Teams Arc Cutter Relationship Specialty Start Date End Date Wally Daniel MD PCP - General 12/17/03 12/08/18 Wally Daniel MD PCP - Assigned PCP 10/16/10 12/14/18 No Ref-Primary, Physician PCP - General 12/09/18 08/17/19 Tennille Goddard APRN ALLIANCES CONSULTANT [address] [place] [address] PCP - Assigned PCP 12/15/18 01/21/19 Tennille Goddard APRN ALLIANCES CONSULTANT [address] [place] [address] PCP - General Nurse Practitioner - Family 08/18/19 Tennille Goddard APRN ALLIANCES CONSULTANT [address] [place] [address] Assigned PCP 12/15/18 01/07/22 Beatris Ty [facility] [address] [place] [address] Pharmacist Pharmacist 04/08/19 01/12/21 Dov Alston [facility] [address] [place] [address] Pharmacist Pharmacist 06/16/19 Dov Alston [facility] [address] [place] [address] Assigned MTM Pharmacist 04/15/22 08/04/22 Dov Alston [facility] [address] [place] [address] Assigned MTM Pharmacist 08/16/22 10/27/22 documented as of this encounter
--- OUTSIDE RECORDS SUMMARY | 2025-02-02 22:49 | XMS_ITS | Encounter Summary ---
Author Organization [place] Address [address] [place] [address] Care Team Providers Care Flatwork Tier Name Role Phone Tennille Goddard APRN SOLDERING INSPECTOR Unavailable [phone] Beatris Ty [facility] Unavailable [phone] Dov Alston [facility] Unavailable Unavailable Tennille Goddard APRN SOLDERING INSPECTOR Primary Care Provider + Dov Alston [facility] Unavailable Unavailable Dov Alston [facility] Unavailable Unavailable Reason for Visit * Reason Onset Date Comments Appointment 09/16/2019 Encounter Details Date Type Department Care Team (Late st Contact Info) Description 09/16/2019 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 Gender Identity Not on file Sexual Orientation [...] Depression Total Score: 0 01/07/20 6:53 PM SIMULATION TECHNICIAN documented as of this encounter Care Teams Flatwork Tier Relationship Specialty Start Date End Date Tennille Goddard APRN SOLDERING INSPECTOR [address] [place] [address] PCP - General Nurse Practitioner - Family 08/18/19 Tennille Goddard APRN SOLDERING INSPECTOR [address] [facility] [place] [address] Assigned PCP 12/15/18 01/07/22 Beatris Ty [facility] [address] [place] [address] Pharmacist Pharmacist 04/08/19 01/12/21 Dov Alston [facility] [address] [place] [address] Pharmacist Pharmacist 06/16/19 [facility] [address] [place] [address] Assigned MTM Pharmacist 04/15/22 08/04/22 Dov Alston [facility] [address] [address] Assigned MTM Pharmacist 08/16/22 10/27/22 documented as of this encounter
--- OUTSIDE RECORDS SUMMARY | 2025-02-02 22:49 | XMS_ITS | Encounter Summary ---
Author Organization [place] Address [address] [place] [address] Care Team Providers Care Packer Name Role Phone Tennille Goddard APRN ELECTRONIC ASSEMBLER GROUP LEADER Unavailable [phone] Dov Alston [facility] Unavailable Unavailable Tennille Goddard APRN ELECTRONIC ASSEMBLER GROUP LEADER Primary Care Provider + Dov Alston RP Unavailable Unavailable Dov Alston [facility] Unavailable Unavailable Reason for Visit * Reason Comments Medication Refill Encounter Details Date Type Department Care Team (Late st Contact Info) Description 06/27/[address] [address] Wally Daniel MD Medication Refill Social History Tobacco Use Types Packs/Day Years [...] on file 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 Can also get OTC. Tennille Goddard CNP * Telephone Encounter - Sunni Chow RN - 06/30/2021 10:29 AM CDT Routing refill request to provider for review/approval because: Lisa given x1 and patient did not follow up, please advise Patient needs to be seen because it has been more than 1 year since last office visit. Sunni Chow RN on 06/30/2021 at 10:30 AM documented in this encounter Plan of Treatment Not on file documented as of this encounter Visit Diagnoses Diagnosis Vitamin D deficiency Unspecified vitamin D deficiency documented in this encounter Additional Health Concerns Assessment Noted Time PHQ-9 Depression Total Score: 0 01/07/20 19 6:53 PM DENTAL CHAIR ASSEMBLER documented as of this encounter Care Teams Packer Relationship Specialty Start Date End Date Tennille Goddard APRN CNP [address] [place] [address] PCP - General Nurse Practitioner - Family 08/18/19 Tennille Goddard APRN CNP [address] [place] [address] Assigned PCP 12/15/18 01/07/22 Dov Alston [facility] [address] [place] [address] Pharmacist Pharmacist 06/16/19 Dov Alston [facility] [address] [place] [address] Assigned MTM Pharmacist 04/15/22 08/04/22 Dov Alston [facility] [address] [place] [address] Assigned MTM Pharmacist 08/16/22 10/27/22 documented as of this encounter
--- OUTSIDE RECORDS SUMMARY | 2025-02-02 22:49 | XMS_ITS | Encounter Summary ---
Author Organization [place] Address [address] [place] [address]. [place] [address] Care Team Providers Care Library Clerk Talking Books Name Role Phone Tennille Goddard APRN LASER SYSTEMS ENGINEER Unavailable [phone] Dov Alston [facility] Unavailable Unavailable Tennille Goddard APRN LASER SYSTEMS ENGINEER Primary Care Provider + Dov Alston [facility] Unavailable Unavailable Dov Alston [facility] Unavailable Unavailable Reason for Visit * Reason Comments Medication Refill Encounter Details Date Type Department Care Team (Late st Contact Info) Description 05/11/2021 Refill [facility] [address] [place] [address] Tennille Goddard APRN LASER SYSTEMS ENGINEER [address] [place] [address] Medication Refill Social History Tobacco Use Types [...] on file 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 No / Unsure 04/25/2021 12:25 PM CDT documented as of this encounter Miscellaneous Notes * Telephone Encounter - Mahogany Zurita RN - 05/12/2021 8:55 AM CDT Prescription approved per [facility] [place] protocol. Mahogany Zurita RN on 05/12/2021 at 8:55 AM documented in this encounter Plan of Treatment Not on file documented as of this encounter Visit Diagnoses Diagnosis Hyperlipidemia LDL goal <100 Other and unspecified hyperlipidemia documented in this encounter Additional Health Concerns Assessment Noted Time PHQ-9 Depression Total Score: 0 01/07/20 6:53 PM BODY CLEANER documented as of this encounter Care Teams Library Clerk Talking Books Relationship Specialty Start Date End Date Tennille Goddard APRN LASER SYSTEMS ENGINEER [address] [address] PCP - General Nurse Practitioner - Family 08/18/19 Tennille Goddard APRN LASER SYSTEMS ENGINEER [address] [place] [address] Assigned PCP 12/15/18 01/07/22 Dov Alston [facility] [address] [place] [address] Pharmacist Pharmacist 06/16/19 Dov Alston [facility] [address] [place] [address] Assigned MTM Pharmacist 04/15/22 08/04/22 Dov Alston [facility] [address] [place] [address] Assigned MTM Pharmacist 08/16/22 10/27/22 documented as of this encounter
--- OUTSIDE RECORDS SUMMARY | 2025-02-02 22:49 | XMS_ITS | Encounter Summary ---
Author Organization [facility] Address [address] [place] [address] Care Team Providers Care Etl Analyst Developer Name Role Phone Tennille Goddard APRN CONVENTION SERVICES MANAGER Unavailable [phone] Dov Alston [facility] Unavailable Unavailable Tennille Goddard APRN, CNP Primary Care Provider + Dov Alston [facility] Unavailable Unavailable Dov Alston [facility] Unavailable Unavailable Encounter Details Date Type Department Care Team (Late st Contact Info) Description 07/04/2021 [facility] Medical Advice [address] [address] Irene Lara Social History Tobacco Use Types Packs/Day Years [...] on file 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 Gender Identity Not on file Sexual Orientation [...] Total Score: 0 01/07/20 19 6:53 PM MACHINE OPERATOR GENERAL documented as of this encounter Care Teams Etl Analyst Developer Relationship Specialty Start Date End Date Tennille Goddard APRN CNP [address] [place] [address] PCP - General Nurse Practitioner - Family 08/18/19 Tennille Goddard APRN CONVENTION SERVICES MANAGER [address] [place] [address] Assigned PCP 12/15/18 01/07/22 Dov Alston [facility] [address] [place] [address] Pharmacist Pharmacist 06/16/19 Dov Alston [facility] [address] [place] [address] Assigned MTM Pharmacist 04/15/22 08/04/22 Dov Alston [facility] [address] [place] [address] Assigned MTM Pharmacist 08/16/22 10/27/22 documented as of this encounter
--- OUTSIDE RECORDS SUMMARY | 2025-02-02 22:49 | XMS_ITS | Encounter Summary ---
Author Organization [place] Address [address] [place] [address] Care Team Providers Care Taxation Economist Name Role Phone Wally Daniel MD Primary Care Provider Unavailable Wally Daniel MD Unavailable Unavai lable No Ref-Primary, Physician Primary Care Provider Tennille Goddard APRN AUTO PAINTER Unavailable [phone] Tennille Goddard APRN AUTO PAINTER Unavailable [phone] Beatris Ty [facility] Unavailable [phone] Dov Alston [facility] Unavailable Unavailable Tennille Goddard APRN AUTO PAINTER Primary Care Provider + Dov Alston [facility] Unavailable Unavailable Dov Alston [facility] Unavailable Unavailable Encounter Details Date Type Department Care Team (Late st Contact Info) Description 09/07/2013 [facility] Medical Advice [address] [address] Dov Alston [facility] [id number] [place] [address] Social History Tobacco Use Types Packs/Day Years [...] on file 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 Gender Identity Not on file Sexual Orientation Not on file 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 as of this encounter Plan of Treatment Not on file documented as of this encounter Visit Diagnoses Not on filedocumented in this encounter Care Teams Taxation Economist Relationship Specialty Start Date End Date Wally Daniel MD PCP - General 12/17/03 12/08/18 Wally Daniel MD PCP - Assigned PCP 10/16/10 12/14/18 No Ref-Primary, Physician PCP - General 12/09/18 08/17/19 Tennille Goddard APRN AUTO PAINTER [address] [facility] [facility] [address] PCP - Assigned PCP 12/15/18 01/21/19 Tennille Goddard APRN AUTO PAINTER [address] [facility] [address] [employer] [id number] PCP - General Nurse Practitioner - Family 08/18/19 Tennille Goddard APRN AUTO PAINTER [address] [address] [facility] [place] [id number] Assigned PCP 12/15/18 01/07/22 Beatris Ty [facility] [address] [place] [address] Pharmacist Pharmacist 04/08/19 01/12/21 Dov Alston [facility] [address] [place] [address] Pharmacist Pharmacist 06/16/19 Dov Alston [facility] [address] [place] [address] Assigned MTM Pharmacist 04/15/22 08/04/22 Dov Alston [facility] [address] [place] [address] Assigned MTM Pharmacist 08/16/22 10/27/22 documented as of this encounter
--- OUTSIDE RECORDS SUMMARY | 2025-02-02 22:49 | XMS_ITS | Encounter Summary ---
Author Organization [facility] Address [address] [place] [address]. [place] [address] Care Team Providers Care Clearing House Clerk Name Role Phone Tennille Goddard APRN MICROCOMPUTER SUPPORT SPECIALIST Unavailable [phone] Dov Alston [facility] Unavailable Unavailable Tennille Goddard APRN MICROCOMPUTER SUPPORT SPECIALIST Primary Care Provider + Dov Alston [facility] Unavailable Unavailable Dov Alston [facility] Unavailable Unavailable Encounter Details Date Type Department Care Team (Late st Contact Info) Description 03/28/2021 [facility] Medical Advice [facility] [address] [place] [address] Tennille Goddard APRN [facility] [id number] [place] [address] Social History Tobacco Use Types Packs/Day [...] on file 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 Adv to call insurance to see if his physical will be covered. Patient not really sure why he has to come in. Adv last visit was 01/07/19 and Tennille would have to at minimum see her once a year. Patient stated he will call his insurance and let us know. Mahogany Zurita RN on 03/28/2021 at 3:34 PM documented in this encounter Plan of Treatment Not on file documented as of this encounter Visit Diagnoses Not on filedocumented in this encounter Additional Health Concerns Assessment Noted Time PHQ-9 Depression Total Score: 0 01/07/20 6:53 PM CHIEF TELEPHONE OPERATOR documented as of this encounter Care Teams Clearing House Clerk Relationship Specialty Start Date End Date Tennille Goddard APRN MICROCOMPUTER SUPPORT SPECIALIST [address] [place] [address] PCP - General Nurse Practitioner - Family 08/18/19 Tennille Goddard APRN MICROCOMPUTER SUPPORT SPECIALIST [address] [place] [address] Assigned PCP 12/15/18 01/07/22 Dov Alston [facility] [address] [place] [address] Pharmacist Pharmacist 06/16/19 Dov Alston [facility] [address] [place] [address] Assigned MTM Pharmacist 04/15/22 08/04/22 Dov Alston [facility] [address] [place] [address] Assigned MTM Pharmacist 08/16/22 10/27/22 documented as of this encounter
--- OUTSIDE RECORDS SUMMARY | 2025-02-02 22:49 | XMS_ITS | Encounter Summary ---
Author Organization [facility] Address [address] [place] [address] Care Team Providers Care Developer Analyst Name Role Phone Kelly Mendez APRN C.N.P., D.N.P. 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 [address] [place] [address] Phone: tel: fax: [facility] Radiation Oncology at [place] [address] [place] [phone] Referral ID Status Reason Start Date Expiration Date V isits Requested Visits Authorized [id number] Authorized 12/22/2024 03/10/2026 15 30 Encounter Details Date Type Department Care Team (Late st Contact Info) Description 01/22/2025 12:20 PM ELECTRONIC ENGRAVER Hospital Encounter Department of Radiation Oncology in [place], [place] [address] [place] [phone] Kiana Oliver M.D. [address] [place] [phone] Social History Tobacco Use Types Packs/Day Years Used Date Smoking Tobacco: Former Cigarettes Q uit: 2008 Passive Smoke Exposure: Never Smokeless Tobacco: Never Alcohol Use Standard Drinks/Week Comments Not Currently 0 (1 standard drink = 0.6 oz pur e alcohol) last 06/23/22 [facility] Utilities Answer Date Recorded In the [...] often do you attend oriental orthodox or latter-day serv ices? Patient declined 02/04/2023 Do you [...] [facility] - Occupational Stress [...] AM CDT Legal Sex Male 9:11 PM ELECTRONIC ENGRAVER Gender Identity na 09/07/2021 10:32 AM CDT Sexual Orientation Choose not to disclose 2020 10:32 AM CDT documented as of this encounter Plan of Treatment Upcoming Encounters Date Type Department Care Team (Latest Contact Info) Description 02/03/2025 1:00 PM CDT Appointment Department of Radiation Oncology in [address] [address] Kiana Oliver M.D. [address] [place] [phone] 02/04/2025 1:00 PM CDT Appointment Department of Radiation Oncology in [address] [address] Kiana Oliver M.D. [address] [place] [phone] 02/05/2025 12:45 PM CDT Appointment Department of Radiation Oncology in [address] [address] Kiana Oliver M.D. [address] [place] [phone] 02/05/2025 1:00 PM CDT Appointment Department of Radiation Oncology in [address] [address] Kiana Oliver M.D. [address] [place] [phone] 02/06/2025 1:00 PM CDT Appointment Department of Radiation Oncology in [address] [address] Kiana Oliver M.D. [address] [place] [phone] 02/09/2025 1:00 PM CDT Appointment Department of Radiation Oncology in [place], [place] [address] [place] [phone] Kiana Oliver M.D. [address] [place] [phone] 02/10/2025 1:00 PM CDT Appointment Department of Radiation Oncology in [place], [place] [address] [place] [phone] Kiana Oliver M.D. [address] [place] [phone] 02/11/2025 1:00 PM CDT Appointment Department of Radiation Oncology in [address] [address] Kiana Oliver M.D. [address] [place] [phone] 02/12/2025 1:00 PM CDT Appointment Department of Radiation Oncology in [address] [address] Kiana Olivre M.D. [address] [place] [phone] 02/12/2025 1:15 PM CDT Appointment Department of Radiation Oncology in [address] [address] Kiana Oliver M.D. [address] [place] [phone] 02/13/2025 1:00 PM CDT Appointment Department of Radiation Oncology in [address] [address] Kiana Oliver M.D. [address] [place] [phone] 02/16/2025 7:15 AM CDT Ancillary Procedure Department of Ophthalmology in [place], [place] [address] [place] [phone] Maida Tim O.D. [address] [place] [phone] 02/16/2025 8:00 AM CDT Comprehensive Visit Department of Ophthalmology in [place], [place] [address] [place] [phone] Desi Rasmussen O.D. [address] [place] [phone] 02/23/2025 8:15 AM CDT Clinical Communication Virtual Review in [place], [place] 200 [place] [address] 02/24/2025 9:40 AM CDT Office Visit Department of Dermatology in [address] [address] Felipe Stewart M.D. [address] [place] [phone] 02/24/2025 10:00 AM CDT Office Visit Jeyson milan [facility] Clinical Regeneration in [place], [place] [address] [place] [phone] Aide Welch P.A.Willie., M.S. [address] [place] [phone] 03/03/2025 9:00 AM CDT Telemedicine Department of Nutrition and Diabetes Education in [address] [phone] Katelin Alcaraz, MARCUS, C.N.P., D.N.P. [address] [place] [phone] Mansi Ross M.S., RDN, LD [address] [place] [address] documented as of this encounter Visit Diagnoses Not on filedocumented in this encounter Additional Health Concerns Infection Onset Date Last Indicated Resolved Time Protective Environment 11/10/2023 11/10/2023 Assessment Noted Time PHQ-9 Depression Total Score: 19 025 12:23 PM ELECTRONIC ENGRAVER documented as of this encounter Care Teams Developer Analyst Relationship Specialty Start Date End Date Kelly Mendez APRN, C.N.P., D.N.P. [address] [place] [phone] PCP - General Internal Medicine 12/05/23 [facility] or [facility] lab Laboratory Medicine 02/26/23 documented as of this encounter
--- OUTSIDE RECORDS SUMMARY | 2025-02-02 22:49 | XMS_ITS | Encounter Summary ---
Author Organization [facility] Address [address] [place] [address] Care Team Providers Care Head Up Operator Helper Name Role Phone Wally Daniel MD Primary Care Provider Unavailable Wally Daniel MD Unavailable Unavai lable No Ref-Primary, Physician Primary Care Provider Tennille Goddard APRN RN HOME HEALTH Unavailable [phone] Tennille Goddard APRN RN HOME HEALTH Unavailable [phone] Beatris Ty [facility] Unavailable [phone] Dov Alston [facility] Unavailable Unavailable Tennille Goddard APRN RN HOME HEALTH Primary Care Provider + Dov Aslton [facility] Unavailable Unavailable Dov Alston [facility] Unavailable Unavailable Encounter Details Date Type Department Care Team (Late st Contact Info) Description 05/29/2017 [facility] Medical Advice [address] [address] Dov Alston [facility] [id number] [place] [address] Social History Tobacco Use Types Packs/Day Years [...] on file 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 Gender Identity Not on file Sexual Orientation [...] documented as of this encounter Care Teams Head Up Operator Helper Relationship Specialty Start Date End Date Wally Daniel MD PCP - General 12/17/03 12/08/18 Wally Daniel MD PCP - Assigned PCP 10/16/10 12/14/18 No Ref-Primary, Physician PCP - General 12/09/18 08/17/19 Tennille Goddard APRN [facility] [address] [place] [address] PCP - Assigned PCP 12/15/18 01/21/19 Tennille Goddard APRN [facility] [address] [place] [address] PCP - General Nurse Practitioner - Family 08/18/19 Tennille Goddard APRN [facility] [address] [place] [address] Assigned PCP 12/15/18 01/07/22 Beatris Ty [facility] [address] [place] [address] Pharmacist Pharmacist 04/08/19 01/12/21 Dov Alston [facility] [address] [place] [address] Pharmacist Pharmacist 06/16/19 Dov Alston [facility] [address] [place] [address] Assigned MTM Pharmacist 04/15/22 08/04/22 Dov Alston [facility] [address] [place] [address] Assigned [place] Pharmacist 08/16/22 10/27/22 documented as of this encounter
--- OUTSIDE RECORDS SUMMARY | 2025-02-02 22:49 | XMS_ITS | Encounter Summary ---
Author Organization [facility] Address [address] [place] [address]. [place] [address] Care Team Providers Care Sheriff'S Sergeant Name Role Phone Tennille Goddard APRN METEOROLOGICAL EQUIPMENT REPAIRER Unavailable [phone] Dov Alston [facility] Unavailable Unavailable Tennille Goddard APRN METEOROLOGICAL EQUIPMENT REPAIRER Primary Care Provider + Dov Alston [facility] Unavailable Unavailable Dov Alston [facility] Unavailable Unavailable Encounter Details Date Type Department Care Team (Late st Contact Info) Description 04/22/2021 [facility] Medical Advice [facility] [address] [place] [address] Tennille Goddard APRN [facility] [id number] [place] [address] Social History Tobacco Use Types Packs/Day [...] on file 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 Gender Identity Not on file Sexual Orientation [...] PM CDT documented as of this encounter Plan of Treatment Not on file documented as of this encounter Visit Diagnoses Not on filedocumented in this encounter Additional Health Concerns Assessment Noted Time PHQ-9 Depression Total Score: 0 01/07/20 19 6:53 PM JAILER/TRAINING OFFICER documented as of this encounter Care Teams Sheriff'S Sergeant Relationship Specialty Start Date End Date Tennille Goddard APRN METEOROLOGICAL EQUIPMENT REPAIRER [address] [place] [address] PCP - General Nurse Practitioner - Family 08/18/19 Tennille Goddard APRN METEOROLOGICAL EQUIPMENT REPAIRER [address] [place] [address] Assigned PCP 12/15/18 01/07/22 Dov Alston [facility] [address] [place] [address] Pharmacist Pharmacist 06/16/19 Dov Alston [facility] [address] [address] [facility] [address] Assigned MTM Pharmacist 04/15/22 08/04/22 Dov Alston [facility] [address] [place] [address] Assigned MTM Pharmacist 08/16/22 10/27/22 documented as of this encounter
--- OUTSIDE RECORDS SUMMARY | 2025-02-02 22:49 | XMS_ITS | Encounter Summary ---
Author Organization [facility] Address [address] [place] [address] Care Team Providers Care Lime Kiln Worker Helper Name Role Phone Tennille Goddard APRN BUSINESS APPLICATIONS SPECIALIST Unavailable [phone] Beatris Ty [facility] Unavailable [phone] Dov Alston [facility] Unavailable Unavailable Tennille Goddard APRN BUSINESS APPLICATIONS SPECIALIST Primary Care Provider + Dov Alston [facility] Unavailable Unavailable Dov Alston [facility] Unavailable Unavailable Encounter Details Date Type Department Care Team (Late st Contact Info) Description 02/04/2020 [facility] Medical Advice [address] [address] Dov Alston [facility] [id number] [place] [address] Social History Tobacco Use Types Packs/Day Years [...] on file Legal Sex Male 3:09 AM TEST PILOT Gender Identity Not on file Sexual Orientation Not on file 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 My weight is down to 143 and that is 8 pounds more than when I weighted in 1977, most came off my Mid Section. I like this. I only eat supper and skip breakfast and lunch, I don't miss them. The biggest issue is taking Metformin with this diet, the most I can handle is one and the morning and one in the evening and some times not even that. I get what I call Metformin Flu, nauseous, dry heaves, need sleep. Other than that I feel great. ?? Millicent is totally on board. ?? See attached, that jump in Dec was [place]....... shilpa couldn't attach his bs log --but most bs's between 125-200, he did spike high iun [place] in dec-- 200-350 on his trip there but now back down in january 130-160. shilpa will have him take 2 metformin post dinner now after meal and if he can tolerate 3 or 4 all after dinner then ok to increase to that as well. F/up a1c lab due at next clinic visit 02-26-20. Stay on diet as is . Dov Alston Rph. Medication Therapy Management Provider [phone] documented in this encounter Plan of Treatment Not on file documented as of this encounter Visit Diagnoses Not on filedocumented in this encounter Additional Health Concerns Assessment Noted Time PHQ-9 Depression Total Score: 0 01/07/20 19 6:53 PM TEST PILOT documented as of this encounter Care Teams Lime Kiln Worker Helper Relationship Specialty Start Date End Date Tennille Goddard APRN BUSINESS APPLICATIONS SPECIALIST [address] [place] [address] PCP - General Nurse Practitioner - Family 08/18/19 Tennille Goddard APRN BUSINESS APPLICATIONS SPECIALIST [address] [address] [place] [address] Assigned PCP 12/15/18 01/07/22 Beatris Ty [facility] [address] [place] [address] Pharmacist Pharmacist 04/08/19 01/12/21 [facility] [address] [place] [address] Pharmacist Pharmacist 06/16/19 [facility] [address] [place] [address] Assigned MTM Pharmacist 04/15/22 08/04/22 [facility] [address] [place] [address] Assigned MTM Pharmacist 08/16/22 10/27/22 documented as of this encounter
--- OUTSIDE RECORDS SUMMARY | 2025-02-02 22:49 | XMS_ITS ---
Author Organization [facility] Address [address] [place] [address] Care Team Providers Care Level Glass Forming Machine Operator Name Role Phone AndreaJuddKellylilia Buchanan APRN C.N.P., D.N.P. Primary Car e Provider Active Problems * This document contains information received from the source organization and may not represent a complete record from that organization. 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 Provider to review Current Treatment and Therapy Plans No current plan information found. Other Current Plans pentamidine (NEBUPENT) Inhaled* Plan Start Date:04/03/2024 Plan Provider:Luba Malloy M.D. Linked Problems Transplant Liver (HCC) Treatment Medications No medications scheduled. Past Treatment and Therapy Plans No past plan information found. 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 Treatment Courses* Course 1xHead 01/05/2025 - 02/02/2025 Treatment Period Fraction Dose Fractions Total Dose Plans Planned [id number] 01/05/2025 - 02/02/2025 200 cGy 6 ,000 cGy Reference Points Delivered [id number] 01/05/2025 - 02/02/2025 4,200 cGy Lifetime Dose Tracking * Chemical Lifetime Dose Automatic Entry Manual Entr y Radiation 749.49 mGy 749.49 mGy 0 mGy Fluoro Time 44.13 minutes 44.13 minutes 0 minutes DAP (uGy-m2) 14,595.52 uGy-m2 14,595.52 uGy-m2 0 uGy-m 2 Resolved Problems Problem Noted Date Diagnosed Date Resolved Date End Stage Liver Disease 11/09/202311/19 Diabetes Mellitus Type 2 Ulcer Foot 04/30/2023 07/03/2023 Hepatic Encephalopathy Without Coma 08/07/2022 12/05/2023 Hematemesis 07/16/2021 07/03/2023
--- OUTSIDE RECORDS SUMMARY | 2025-02-02 22:49 | XMS_ITS | Encounter Summary ---
Author Organization [facility] Address [address] [place] [address]. [place] [address] Care Team Providers Care Flow Trader Name Role Phone Tennille Goddard APRN VIDEO GAME ANIMATOR Unavailable [phone] Dov Alston [facility] Unavailable Unavailable Tennille Goddard APRN VIDEO GAME ANIMATOR Primary Care Provider + Dov Alston [facility] Unavailable Unavailable Dov Alston [facility] Unavailable Unavailable Encounter Details Date Type Department Care Team (Late st Contact Info) Description 02/03/2021 [facility] [place] [address] [place] [address] Dov Alston, [facility] [address] [place] [address] Restless legs syndrome (RLS) (Primary Dx); Type 2 diabetes mellitus with stage 1 chronic kidney disease, without long-term current use of insulin (H) Social History Tobacco Use Types Packs/Day Years [...] on file Legal Sex Male 3:09 AM HEEL SANDER Gender Identity Not on file Sexual Orientation Not on file 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 No / Unsure 01/05/2021 10:48 AM HEEL SANDER documented as of this encounter Miscellaneous Notes * Telephone Encounter - Dov Alston RPH - 02/04/2021 5:28 PM CDT 02-04-21 First good nights sleep this month. [employer] does not sell those test scripts, let's try [employer]. mtm notes good sleep--will send test strips to [facility]. Dov Alston Rph. Medication Therapy Management Provider [phone] * Telephone Encounter - Dov Alston RPH - 02/03/2021 11:02 AM CDT Greeting from [facility], ?? I have had restless legs again every night this month??? Could we try that drug we used about 5 years ago? If yes lets send this to [facility] in [place], the one at [address] ?? Also I will be running out of test strips, [employer] Glucocard Vital. Because I'm testing again. ?? Let me know Plan: 1. MTM will restart him on Ropinirole 0.25 mg tabs --may titrate up slowly to 0.75mg./day dose thatworked well for him years ago. 2. FYI-also reordered him some glucocard vital test strips. Dov Alston Rph. Medication Therapy Management Provider [phone] documented in this encounter Plan of Treatment Not on file documented as of this encounter Visit Diagnoses Diagnosis Restless legs syndrome (RLS)- Primary Type 2 diabetes mellitus with stage 1 chronic kidney disease, without long-term current use of insulin (H) documented in this encounter Additional Health Concerns Assessment Noted Time PHQ-9 Depression Total Score: 0 01/07/20 6:53 PM HEEL SANDER documented as of this encounter Care Teams Flow Trader Relationship Specialty Start Date End Date Tennille Goddard APRN VIDEO GAME ANIMATOR [address] [place] [address] PCP - General Nurse Practitioner - Family 08/18/19 Tennille Goddard APRN VIDEO GAME ANIMATOR [address] [place] [address] Assigned PCP 12/15/18 01/07/22 Dov Alston [facility] [address] [place] [address] Pharmacist Pharmacist 06/16/19 Dov Alston [facility] [address] [place] [address] Assigned MTM Pharmacist 04/15/22 08/04/22 Dov Alston [facility] [address] [place] [address] Assigned MTM Pharmacist 08/16/22 10/27/22 documented as of this encounter
--- OUTSIDE RECORDS SUMMARY | 2025-02-02 22:49 | XMS_ITS | Encounter Summary ---
Author Organization [facility] Address [address] [place] [address]. [place] [address] Care Team Providers Care Skin Care Consultant Name Role Phone Tennille Goddard APRN RETAIL SALES REPRESENTATIVE Unavailable [phone] Dov Alston [facility] Unavailable Unavailable Tennille Goddard APRN RETAIL SALES REPRESENTATIVE Primary Care Provider + Dov Alston [facility] Unavailable Unavailable Dov Alston [facility] Unavailable Unavailable Encounter Details Date Type Department Care Team (Late st Contact Info) Description 07/11/2021 [facility] Medical Advice [address] [place] [address] Dov Alston [facility] [address] [place] [address] Social History Tobacco Use Types Packs/Day Years [...] on file Legal Sex Male 3:09 AM HYPERBARIC WELDER DIVER Gender Identity Not on file Sexual Orientation Not on file 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 See Attached. [facility] notes graph trend is fasting am 260 3 weeks ago --now 110-150 fasting in am. Will continue with glip 5mg. Bid for now. Dov Alston Rph. Medication Therapy Management Provider [phone] documented in this encounter Plan of Treatment Not on file documented as of this encounter Visit Diagnoses Not on filedocumented in this encounter Additional Health Concerns Assessment Noted Time PHQ-9 Depression Total Score: 0 01/07/20 19 6:53 PM HYPERBARIC WELDER DIVER documented as of this encounter Care Teams Skin Care Consultant Relationship Specialty Start Date End Date Tennille Goddard APRN RETAIL SALES REPRESENTATIVE [address] [place] [address] PCP - General Nurse Practitioner - Family 08/18/19 Tennille Goddard APRN RETAIL SALES REPRESENTATIVE [address] [place] [address] Assigned PCP 12/15/18 01/07/22 Dov Alston [facility] [address] [place] [address] Pharmacist Pharmacist 06/16/19 Dov Alston [facility] [address] [place] [address] Assigned MTM Pharmacist 04/15/22 08/04/22 Dov Alston [facility] [address] [place] [address] Assigned MTM Pharmacist 08/16/22 10/27/22 documented as of this encounter
--- OUTSIDE RECORDS SUMMARY | 2025-02-02 22:49 | XMS_ITS | Encounter Summary ---
Author Organization [facility] Address [address] [place] [address] Care Team Providers Care Jackspooler Name Role Phone Wally Daniel MD Primary Care Provider Unavailable Wally Daniel MD Unavailable Unavai lable No Ref-Primary, Physician Primary Care Provider Tennille Goddard APRN COMPOUND MIXER Unavailable [phone] Tennille Goddard APRN COMPOUND MIXER Unavailable [phone] Beatris Ty RPH Unavailable [phone] Dov Alston RPH Unavailable Unavailable Tennille Goddard APRN COMPOUND MIXER Primary Care Provider + Dov Alston RPH Unavailable Unavailable Dov Alston RPH Unavailable Unavailable Reason for Visit * Reason Onset Date Comments Nurse Advice Line 10/01/2018 change provide r Encounter Details Date Type Department Care Team (Late st Contact Info) Description 10/01/[address], [address] [place] [address] Herminio Heart PA-C [address] [place] [address] Nurse Advice Line (change provider) Social History Tobacco Use Types Packs/Day Years [...] on file Legal Sex Male 3:09 AM MFG ASSOC Gender Identity Not on file Sexual Orientation Not on file 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 He asked what it would cost to do this. I offered the Central billing phone number, which he said he could not write it downat the moment. He would find it and call at a later time. We had a conversation about his high deductible insurance and that he traveled a lot, and he wanted to know if this would be a problem to seeher a couple times a year? He felt like he was being asked to come in to much at the other clinic, and could not afford this. I then explained he should have a meet an greet appointment with Herminio where this would answer those questions for him. He said Kenny Wrightrecommended her to him. Sri Campuzano MA ASSOC * Telephone Encounter - Krista Poole RN - 10/01/2018 6:15 PM CST Original message should have gone to RN rather than provider Message below was in comment box for reason for call - This Pt wants to switch clinics and pcp to [facility] and would like a clbk regarding the most diabetic medication that can be rx'd without a visit. He did not have his medication info at time of call Pt has been seeing Dr María KIDD for pt to CB and discuss needs. Krista Poole RN, BS Clinical Nurse Triage. ASSOC * Telephone Encounter - Herminio Heart PA-C - 10/01/2018 12:47 PM MFG ASSOC I would note prescribe any medications without seeing him first. He is over due for visit and many health maintenance items. Herminio Silva ASSOC * Telephone Encounter - Bc Ko - 10/01/2018 8:43 AM CST Reason for call: Other Patient called regarding (reason for call): Pt would like a call back to discuss changing clinics, pcp, and diabetic prescription questions Additional comments: Phone number to reach patient: Home number on file [phone] (home) Best Time: any Can we leave a detailed message on this number? Not Applicable ASSOC documented in this encounter Plan of Treatment Not on file documented as of this encounter Visit Diagnoses Not on filedocumented in this encounter Additional Health Concerns Assessment Noted Time PHQ-9 Depression Total Score: 15 016 7:16 AM CDT documented as of this encounter Care Teams Jackspooler Relationship Specialty Start Date End Date Wally Daniel MD PCP - General 12/17/03 12/08/18 Wally Daniel MD PCP - Assigned PCP 10/16/10 12/14/18 No Ref-Primary, Physician PCP - General 12/09/18 08/17/19 Tennille Goddard APRN COMPOUND MIXER [address] [place] [address] PCP - Assigned PCP 12/15/18 01/21/19 Tennille Goddard APRN COMPOUND MIXER [address] [place] [address] PCP - General Nurse Practitioner - Family 08/18/19 Tennille Goddard APRN COMPOUND MIXER [address] [place] [address] Assigned PCP 12/15/18 01/07/22 Beatris Ty [facility] [address] [place] [address] Pharmacist Pharmacist 04/08/19 01/12/21 Dov Alston [facility] [address] [place] [address] Pharmacist Pharmacist 06/16/19 Dov Alston [facility] [address] [place] [address] Assigned MTM Pharmacist 04/15/22 08/04/22 [facility] [address] [place] [address] Assigned MTM Pharmacist 08/16/22 10/27/22 documented as of this encounter
--- OUTSIDE RECORDS SUMMARY | 2025-02-02 22:49 | XMS_ITS | Encounter Summary ---
Author Organization [facility] Address [address] [place] [address] Care Team Providers Care Family Medicine Physician Assistant Name Role Phone Kelly Mendez APRN C.N.P., D.N.P. 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 [address] [place] [address] Phone: tel: fax: [facility] Region Referral ID Status Reason Start Date Expiration Date V isits Requested Visits Authorized [id number] Authorized 12/08/2024 03/10/2026 10 10 ERCIAL INTELLIGENCE MANAGER Reason for Visit * Radiation Therapy (Routine) - Authorized Specialty Diagnoses / Procedures Referred By Juanito ayala Referred To Contact Diagnoses 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 Procedures Management Visit Kiana Oliver M.D. [address] [place] [address] Phone: tel: fax: [facility] Region Referral ID Status Reason Start Date Expiration Date V isits Requested Visits Authorized [id number] Authorized 12/08/2024 03/10/2026 10 10 Encounter Details Date Type Department Care Team (Latest Contact Info) Description 01/22/2025 12:25 PM COMMERCIAL INTELLIGENCE MANAGER - 01/22/2025 4:49 PM COMMERCIAL INTELLIGENCE MANAGER Hospital Encounter Department of Radiation Oncology in [place], [place] [address] [place] [address] Kiana Oliver M.D. [address] [place] [address] 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 Social History Tobacco Use Types Packs/Day Years Used Date Smoking Tobacco: Former Cigarettes Q uit: 2008 Passive Smoke Exposure: Never Smokeless Tobacco: Never Alcohol Use Standard Drinks/Week Comments Not Currently 0 (1 standard drink = 0.6 oz pur e alcohol) last 06/23/22 [facility] Utilities Answer Date Recorded In the past 12 months has e babberly, gas, oil, or water [employer] threatened to shut off services in your [...] week 02/04/2023 How often do you attend taoist or druze serv ices? Patient declined 02/04/2023 Do you belong to any clubs o r organizations such as taoist groups, unions, fraternal or athletic groups, or [...] Answer Date Recorded PHQ-2 Score 6 11/23/2024 [facility]at [facility] - Occupational Stress Questionnaire Answer Date [...] AM CDT Legal Sex Male 9:11 PM COMMERCIAL INTELLIGENCE MANAGER Gender Identity na 09/07/2021 10:32 AM CDT Sexual Orientation Choose not to disclose 2020 10:32 AM CDT documented as of this encounter Last Filed Vital Signs Vital Sign Reading Time Taken Comments Blood Pressure 95/67 01/22/2025 1:04 PM COMMERCIAL INTELLIGENCE MANAGER Pulse 105 01/22/2025 1:04 PM COMMERCIAL INTELLIGENCE MANAGER Temperature 36.9 C (98.5 F) 01/22/2025 1:04 PM COMMERCIAL INTELLIGENCE MANAGER Respiratory Rate - - Oxygen Saturation - - Inhaled Oxygen Concentration - - Weight - - Height - - Body Mass Index - - documented in this encounter Medications at Time [...] diabetes control. 1 each 12/12/2023 11:05 AM COMMERCIAL INTELLIGENCE MANAGER 12/11/2023 calcium citrate-vitamin D3 (Citracal + D3) 315 mg-5 mcg (200 Unit) per tablet Take 1 tablet by mouth 2 (two) times a day with meals. 200 tablet 3 10/20/2024 10/20/20 25 famotidine (Pepcid) 20 mg tablet Take 1 tablet (20 mg total) by mouth 2 (two) times a day as needed for heartburn. 60 tablet 1 11/14/2024 12:18 PM COMMERCIAL INTELLIGENCE MANAGER 11/14/2024 fluoride, sodium, (PreviDent) 1.1 % [...] daily. 90 tablet 3 10/29/2024 11:46 AM COMMERCIAL INTELLIGENCE MANAGER 06/05/2024 gabapentin (NEURONTIN) 300 mg capsule Take 2 capsules (600 mg total) by mouth at bedtime. 04/07/2024 HYDROcodone-acetami nophen (Garrison) 7.5-325 mg per tabletIndications:C hronic Pain/Nonacute Pain [...] 911. 15 mL 2 11/14/2024 12:18 PM COMMERCIAL INTELLIGENCE MANAGER 11/14/2024 ondansetron ODT (Zofran-ODT) 4 mg disintegrating tablet Dissolve 1 tablet (4 mg total) in the mouth every 8 (eight) hours as needed for nausea or vomiting. 30 tablet 3 11/26/2024 3:29 PM COMMERCIAL INTELLIGENCE MANAGER 06/05/2024 pen needle, diabetic (BD Ultra-Fine Short Pen Needle) 31 gauge x 5/16 needle Use 3 times a day 300 each 1 11/14/2024 12:18 PM COMMERCIAL INTELLIGENCE MANAGER 11/14/2024 rOPINIRole (Requip) 0.25 mg tabletIndications:R estless Leg Syndrome Take 2 tablets (0.5 mg total) by mouth at bedtime as needed (RLS). 30 tablet 11/26/2024 3:29 PM COMMERCIAL INTELLIGENCE MANAGER 11/13/2024 rosuvastatin (Crestor) 5 mg tablet Take 1 tablet (5 mg total) by mouth daily. 90 tablet 3 12/29/2024 1:25 PM COMMERCIAL INTELLIGENCE MANAGER 06/05/2024 sennosides-docusate sodium (Stool Softener-Stimulant Laxat) 8.6-50 mg per tabletIndications:T ransplant Liver (HCC),Medication Therapy Assisted Not Anticoagulant,Drug Induced Constipation Take 1 tablet by mouth 2 (two) times a day. 100 tablet 02/22/2024 5:09 PM CDT 02/22/2024 tacrolimus (Prograf) 1 mg capsuleIndications: Transplant Liver (HCC),Medication Therapy Applications Scientist Not Anticoagulant Take 2 capsules (2 mg total) by mouth 2 (two) times a day. 01/01 dose change 360 capsule 3 01/01/2025 01/01/20 26 blood-glucose sensor (FreeStyle Apryl 3 Sensor) deviceIndications:D iabetes Mellitus Type 2 Hyperglycemia (HCC) 1 each every 14 (fourteen) days. 6 each 3 11/26/2024 3:29 PM COMMERCIAL INTELLIGENCE MANAGER 09/04/2024 01/29/20 25 insulin glargine 100 [...] Progress Notes * Kiana Oliver M.D. - 01/22/2025 1:00 PM CST ATTESTATION FOR MANAGEMENT VISIT I saw and evaluated the patient and participated in the guadarrama portions of the service as noted below.I reviewed the documentation of Ms. Rylee Barrios RN and agree with the findings and plan. Thepatient appears well on exam. He does have skin erythema, but no desquamation. The skin graft site looks well healed. He has no conjunctivitis. We will continue with radiation as planned and monitor weekly. I will see if I can figure out who he is seeing next week from Ophthalmology and try to givethem a heads up about why we asked for this visit. Kiana Oliver M.D., 01/22/2025 SUBJECTIVE REASON FOR VISIT Evaluation for side effects while receiving radiation treatment for 1. 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 SUPERVISED BY: Kiana Oliver M.D. HISTORY OF PRESENT ILLNESS Mr. Kevin Perry is a 64 y.o. adult with squamous cell carcinoma who underwent Mohs micrographicsurgery on November 24, 2024. He is currently undergoing radiation therapy. Treatment Course: 1xHead Plan ID Fractions Dose / Fraction (cGy) Dose Treated (cGy) Dose Planned (cGy) First Treatment Last Treatment Elapsed Days [id number] 200 2800 6000 01/05/2025 01/22/2025 Course Summary 01/05/2025 01/22/2025 The patient was seen and examined today with Dr. Oliver. The patient reports feeling increasing fatigue with treatment. He also notes increased nausea. He is taking Zofran intermittently for this and finds its helpful. He denies pain with swallowing. He reports one day where his left eye was blurry but this has since resolved. He does note increase weeping from that eye. The wound bed is being protected with Aquaphor and non-stick bandage. It is being treated with vinegar soaks daily and it being exposed to air for a part of each day. No signs of infection to the wound or surrounding skin. The patient denies pain with swallowing. OBJECTIVE BP 95/67 (BP Location: Left arm, Patient Position: Sitting, Cuff Size: Small) Pulse 105 Temp 36.9 ??C (Temporal) PHYSICAL EXAM General: Alert and oriented in [...] patient is tolerating radiation treatment well overall. Patient can continue with current skin care regimen. Patient will see Ophthalmology in [place] next week. Dr. Oliver was in for any questions or concerns. He will continue with radiation treatment as planned. Signed by: Rylee Barrios R.N. 01/22/2025 1:09 PM COMMERCIAL INTELLIGENCE MANAGER ERCIAL INTELLIGENCE MANAGER documented in this encounter Plan of Treatment Upcoming Encounters Date Type Department Care Team (Latest Contact Info) Description 02/03/2025 1:00 PM CDT Appointment Department of Radiation Oncology in [place], [place] [address] [place] [phone] Kiana Oliver M.D. [address] [place] [address] 02/04/2025 1:00 PM CDT Appointment Department of Radiation Oncology in [place], [place] [address] [place] [phone] Kiana Oliver M.D. [address] [place] [phone] 02/05/2025 12:45 PM CDT Appointment Department of Radiation Oncology in [place], [place] [address] [place] [phone] Kiana Oliver M.D. [address] [place] [phone] 02/05/2025 1:00 PM CDT Appointment Department of Radiation Oncology in [place], [place] [address] [place] [phone] Kiana Oliver M.D. [address] [place] [phone] 02/06/2025 1:00 PM CDT Appointment Department of Radiation Oncology in [place], [place] [address] [place] [phone] Kiana Oliver M.D. [address] [place] [phone] 02/09/2025 1:00 PM CDT Appointment Department of Radiation Oncology in [place], [place] [address] [place] [phone] Kiana Oliver M.D. [address] [place] [phone] 02/10/2025 1:00 PM CDT Appointment Department of Radiation Oncology in [place], [place] [address] [place] [address] Kiana Oliver M.D. [address] [place] [phone] 02/11/2025 1:00 PM CDT Appointment Department of Radiation Oncology in [place], [place] [address] [place] [phone] Kiana Oliver M.D. [address] [place] [phone] 02/12/2025 1:00 PM CDT Appointment Department of Radiation Oncology in [place], [place] [address] [place] [address] Kiana Oliver M.D. [address] [place] [phone] 02/12/2025 1:15 PM CDT Appointment Department of Radiation Oncology in [address] [phone] Kiana Oliver M.D. [address] [place] [phone] 02/13/2025 1:00 PM CDT Appointment Department of Radiation Oncology in [place], [place] [address] [place] [address] Kiana Oliver M.D. [address] [place] [phone] 02/16/2025 7:15 AM CDT Ancillary Procedure Department of Ophthalmology in [place], [place] [address] [place] [phone] Maida Tim O.D. [address] [place] [phone] 02/16/2025 8:00 AM CDT Comprehensive Visit Department of Ophthalmology in [place], [place] [address] [place] [phone] Desi Rasmussen O.D. [address] [place] [phone] 02/23/2025 8:15 AM CDT Clinical Communication Virtual Review in [place], [place] [address] [place] [address] 02/24/2025 9:40 AM CDT Office Visit Department of Dermatology in [place], [place] [address] [place] [phone] Felipe Stewart M.D. [address] [place] [phone] 02/24/2025 10:00 AM CDT Office Visit Jeyson Brown [facility] in [place], [place] [address] [place] [phone] Aide Welch P.A.-C., M.S. [address] [place] [phone] 03/03/2025 9:00 AM CDT Telemedicine Department of Nutrition and Diabetes Education in [address] [phone] Katelin Alcaraz, FABRICATION AND LAYOUT CRAFTSMAN, C.N.P., D.N.P. [address] [place] [phone] Mansi Ross M.S., RDN, LD [address] [place] [phone] Scheduled Orders Name Type Priority Associated Diagnoses Orde r Schedule Management Visit Radiation Oncology Routine 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 Once for 1 Occurrences starting 01/22/2025 until 01/22/2025 documented as of this encounter Visit Diagnoses Diagnosis 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 documented in this encounter Additional Health Concerns Infection Onset Date Last Indicated Resolved Time Protective Environment 11/10/2023 11/10/2023 Assessment Noted Time PHQ-9 Depression Total Score: 19 01/05/2 025 12:23 PM COMMERCIAL INTELLIGENCE MANAGER documented as of this encounter Care Teams Family Medicine Physician Assistant Relationship Specialty Start Date End Date Kelly Mendez APRN, C.N.P., D.N.P. [address] [place] [phone] PCP - General Internal Medicine 12/05/23 [place] [facility] [place] [facility] [place] [facility] lab Laboratory Medicine 02/26/23 documented as of this encounter
--- OUTSIDE RECORDS SUMMARY | 2025-02-02 22:49 | XMS_ITS | Encounter Summary ---
Author Organization [place] Address [address] [place] [address]. [place] [address] Care Team Providers Care Grain And Yeast Plants Supervisor Name Role Phone Tennille Goddard APRN CROSSWORD PUZZLE MAKER Unavailable [phone] Dov Alston [facility] Unavailable Unavailable Tennille Goddard APRN CROSSWORD PUZZLE MAKER Primary Care Provider + Dov Alston [facility] Unavailable Unavailable Dov Alston [facility] Unavailable Unavailable Encounter Details Date Type Department Care Team (Late st Contact Info) Description 06/27/2021 [facility] Medical Advice [address] [place] [address] Dov Alston [facility] [address] [place] [address] Type 2 diabetes mellitus with stage 1 chronic kidney disease, without long-term current use of insulin (H) (Primary Dx) Social History Tobacco Use Types [...] on file Legal Sex Male 3:09 AM KITCHEN OPERATOR Gender Identity Not on file Sexual Orientation Not on file 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 I'm having a hard time getting my numbers back down. I'm thinking of trying some glip. I now taking2 met at night but starting to not feel well. You thoughts. You should be hearing from: mtm will start him back on glip 5mg --bid with 2 main meals/day or 1 daily if only eating 1 meal. Lab Results Component Value Date A1C 7.6 04/22/2021 A1C 8.7 01/05/2021 A1C 7.3 05/04/2020 A1C 8.6 11/21/2019 A1C 7.5 06/12/2019 Dov Alston Rph. Medication Therapy Management Provider [phone] ?? Beatris Fuller Manager Custom [facility] land[facility] [address] [place] [address] [email or web address] Office: [phone] Gender Pronouns: she/her from ?? I see that she thinks that she is a she. What is this world coming to? documented in this encounter Plan of Treatment Not on file documented as of this encounter Visit Diagnoses Diagnosis Type 2 diabetes mellitus with stage 1 chronic kidney disease, without long-term current use of insulin (H)- Primary documented in this encounter Additional Health Concerns Assessment Noted Time PHQ-9 Depression Total Score: 0 01/07/20 19 6:53 PM KITCHEN OPERATOR documented as of this encounter Care Teams Grain And Yeast Plants Supervisor Relationship Specialty Start Date End Date Tennille Goddard APRN CROSSWORD PUZZLE MAKER [address] [place] [address] PCP - General Nurse Practitioner - Family 08/18/19 Tennille Goddard APRN CROSSWORD PUZZLE MAKER [address] [place] [address] Assigned PCP 12/15/18 01/07/22 [place] [address] [place] [address] Pharmacist Pharmacist 06/16/19 Dov Alston [facility] [address] [place] [address] Assigned MTM Pharmacist 04/15/22 08/04/22 Dov Alston [facility] [address] [place] [address] Assigned MTM Pharmacist 08/16/22 10/27/22 documented as of this encounter
--- OUTSIDE RECORDS SUMMARY | 2025-02-02 22:49 | XMS_ITS | Encounter Summary ---
Author Organization [place] Address [address] [place] [address] Care Team Providers Care Package Sealer Name Role Phone No Ref-Primary, Physician Primary Care Provider Tennille Goddard APRN TRANSPORTATION SOLUTIONS MANAGER Unavailable [phone] Beatris Ty [facility] Unavailable [phone] Dov Alston [facility] Unavailable Unavailable Tennille Goddard APRN TRANSPORTATION SOLUTIONS MANAGER Primary Care Provider + Dov Alston [facility] Unavailable Unavailable Dov Alston [facility] Unavailable Unavailable Encounter Details Date Type Department Care Team (Late st Contact Info) Description 02/20/2019 [facility] Medical Advice [address], [address] [place] [address] Antonia Dai, [facility] Social History Tobacco Use Types Packs/Day Years [...] on file Legal Sex Male 3:09 AM CABINET INSTALLER Gender Identity Not on file Sexual Orientation [...] Total Score: 0 01/07/20 19 6:53 PM CABINET INSTALLER documented as of this encounter Care Teams Package Sealer Relationship Specialty Start Date End Date No Ref-Primary, Physician PCP - General 12/09/18 08/17/19 Tennille Goddard APRN TRANSPORTATION SOLUTIONS MANAGER [address] [place] [address] PCP - General Nurse Practitioner - Family 08/18/19 Tennille Goddard APRN TRANSPORTATION SOLUTIONS MANAGER [address] [facility] [place] [address] Assigned PCP 12/15/18 01/07/22 Beatris Ty [facility] [address] [place] [address] Pharmacist Pharmacist 04/08/19 01/12/21 Dov Alston [facility] [address] [place] [address] Pharmacist Pharmacist 06/16/19 Dov Alston [facility] [address] [place] [address] Assigned MTM Pharmacist 04/15/22 08/04/22 Dov Alston [facility] [address] [place] [address] Assigned MTM Pharmacist 08/16/22 10/27/22 documented as of this encounter
--- OUTSIDE RECORDS SUMMARY | 2025-02-02 22:49 | XMS_ITS | Encounter Summary ---
Author Organization [place] Address [address] [place] [address]. [place] [address] Care Team Providers Care Optical Laboratory Mechanic Name Role Phone Tennille Goddard APRN PHYSIOLOGY TEACHER Unavailable [phone] Dov Alston [facility] Unavailable Unavailable Tennille Goddard APRN PHYSIOLOGY TEACHER Primary Care Provider + Dov Alston [facility] Unavailable Unavailable Dov Alston [facility] Unavailable Unavailable Encounter Details Date Type Department Care Team (Late st Contact Info) Description 02/21/2021 [facility] Medical Advice [address] [place] [address] Dov Alston [facility] [address] [place] [address] Social History Tobacco Use Types Packs/Day Years [...] on file Legal Sex Male 3:09 AM SEQUENCING MACHINE OPERATOR Gender Identity Not on file Sexual Orientation Not on file 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 We can keeps the other drugs in our toolbox now that we know where to get them. Taking Metformin with evening meal seems to be working, morning numbers 166 and 138 and am feeling much, much better. Dov Alston Rph. Medication Therapy Management Provider [phone] * Telephone Encounter - Dov Alston RPH - 02/22/2021 5:25 PM CDT Are you sitting down? Januvia 100mg/day - cost $68 for 28 pills - buy 3 get one free Jardiance 10mg/day - cost $55 for 30 pillas Trulicity cost - $75 for 2 shots and wait I have more Metformina 500mg 100 pills - cost $4.00 ?? We are getting screwed by our politicians. mtm notes much more affordable med prices in [place] --patient to let me know what he wants to try ? Dov Alston Rph. Medication Therapy Management Provider [phone] documented in this encounter Plan of Treatment Not on file documented as of this encounter Visit Diagnoses Not on filedocumented in this encounter Additional Health Concerns Assessment Noted Time PHQ-9 Depression Total Score: 0 01/07/20 19 6:53 PM SEQUENCING MACHINE OPERATOR documented as of this encounter Care Teams Optical Laboratory Mechanic Relationship Specialty Start Date End Date Tennille Goddard APRN PHYSIOLOGY TEACHER [address] [place] [address] PCP - General Nurse Practitioner - Family 08/18/19 Tennille Goddard APRN PHYSIOLOGY TEACHER [address] [place] [address] Assigned PCP 12/15/18 01/07/22 Dov Alston RPH [address] [facility], [place] [address] Pharmacist Pharmacist 06/16/19 oDv Alston RPH [address] [address] [place], [place] [address] Assigned [place] Pharmacist 04/15/22 08/04/22 Dov Alston RPH [address] [address] [place] [address] Assigned [place] Pharmacist 08/16/22 10/27/22 documented as of this encounter
--- OUTSIDE RECORDS SUMMARY | 2025-02-02 22:49 | XMS_ITS | Encounter Summary ---
Author Organization [place] Address [address] [place] [address] Care Team Providers Care Potter Or Ceramic Artist Name Role Phone Tennille Goddard APRN COMPRESSOR ENGINEER Unavailable [phone] Dov Alston [facility] Unavailable Unavailable Tennille Goddard APRN COMPRESSOR ENGINEER Primary Care Provider + Dov Alston [facility] Unavailable Unavailable Dov Alston [facility] Unavailable Unavailable Reason for Visit * Reason Comments Medication Refill Encounter Details Date Type Department Care Team (Late st Contact Info) Description 02/03/[address], [address] [place] [address] Tennille Goddard APRN COMPRESSOR ENGINEER [address] [place] [address] Medication Refill Social History Tobacco [...] file Legal Sex Male 3:09 AM COMPUTER GRAPHIC ARTIST Gender Identity Not on file Sexual Orientation Not on file 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 No / Unsure 01/05/2021 10:48 AM COMPUTER GRAPHIC ARTIST documented as of this encounter Miscellaneous Notes * Telephone Encounter - Tennille Goddard APRN CNP - 02/04/2021 10:05 AM CDT Dov--I refilled his meds today. I haven't seen him in quite awhile (didn't realize it had been solong). I'm glad he is continuing to see you, but I should see him at some point for a physical--duefor colonoscopy, eye exam, foot exam, vaccines. If you can assist at all with scheduling that wouldbe great. I know he tends to be hesitant to come in. Tennille Goddard CNP * Telephone Encounter - Calri Herman RN - 02/03/2021 2:45 PM CDT Routing refill request to provider for review/approval because: Patient needs to be seen because it has been more than 1 year since last office visit. [place] with [place] 01/07/2019. Patient has seen MTM Last BP 01/07/2019. Plase route to to schedule visit when done. Carli Herman RN documented in this encounter Plan of Treatment Not on file documented as of this encounter Visit Diagnoses Diagnosis Type 2 diabetes mellitus with stage 1 chronic kidney disease, without long-term current use of insulin (H) Hypertension goal BP (blood pressure) < 140/90 Unspecified essential hypertension documented in this encounter Additional Health Concerns Assessment Noted Time PHQ-9 Depression Total Score: 0 01/07/20 19 6:53 PM COMPUTER GRAPHIC ARTIST documented as of this encounter Care Teams Potter Or Ceramic Artist Relationship Specialty Start Date End Date Tennille Goddard APRN CNP [address] [place] [address] PCP - General Nurse Practitioner - Family 08/18/19 Tennille Goddard APRN [facility] [address] [place] [address] Assigned PCP 12/15/18 01/07/22 [place] [address] [address] [place] [address] Pharmacist Pharmacist 06/16/19 Dov Alston [facility] [address] [address] [place] [address] Assigned MTM Pharmacist 04/15/22 08/04/22 Dov Alston [facility] [address] [address] Assigned MTM Pharmacist 08/16/22 10/27/22 documented as of this encounter
--- OUTSIDE RECORDS SUMMARY | 2025-02-02 22:50 | XMS_ITS | Encounter Summary ---
Author Organization [facility] Address [address] [place] [address] Care Team Providers Care Cooperative Extension Agent Name Role Phone Kelly Mendez APRN C.N.PKathrin, D.N.P. Primary Car e Provider Reason for Referral * Outpatient (Routine) - Closed Specialty Diagnoses / Procedures Referred By Juanito ayala Referred To Contact Ophthalmology Diagnoses Dry Eye Syndrome Left Kiana Oliver M.D. [address] [place] [address] Phone: tel: fax: [facility] Referral ID Status Reason Start Date Expiration Date Visits Re quested Visits Authorized [id number] Closed 01/15/2025 07/17/2026 1 1 Scheduling Instructions I'm not sure if ocular oncology is the correct place for this consult? He doesn't have an eye cancer, but can have side effects from the radiation that will need monitoring during and then after radiation to prevent severe dry eye. D TURNER * Radiation Therapy (Routine) - Authorized Specialty Diagnoses / Procedures Referred By Juanito ayala Referred To Contact Diagnoses 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 Procedures Management Visit Kiana Oliver M.D. [address] [place] [address] Phone: tel: [facility] Region Referral ID Status Reason Start Date Expiration Date V isits Requested Visits Authorized [id number] Authorized 12/08/2024 03/10/2026 10 10 D TURNER Reason for Visit * Radiation Therapy (Routine) - Authorized Specialty Diagnoses / Procedures Referred By Juanito ayala Referred To Contact Diagnoses 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 Procedures Management Visit Kiana Oliver M.D. [address] [place] [address] Phone: tel: fax: [facility] Referral ID Status Reason Start Date Expiration Date V isits Requested Visits Authorized [id number] Authorized 12/08/2024 03/10/2026 10 10 Encounter Details Date Type Department Care Team (Latest Contact Info) Description 01/15/2025 12:25 PM BOARD TURNER - 01/15/2025 3:43 PM BOARD TURNER Hospital Encounter Department of Radiation Oncology in [place], [place] [address] [place] [address] Kiana Oliver M.D. [address] [place] [phone] Dry Eye Syndrome Left (Primary Dx); 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 Social History Tobacco Use Types Packs/Day Years Used Date Smoking Tobacco: Former Cigarettes Q uit: 2008 Passive Smoke Exposure: Never Smokeless Tobacco: Never Alcohol Use Standard Drinks/Week Comments Not Currently 0 (1 standard drink = 0.6 oz pur e alcohol) last 06/23/22 [facility] Utilities Answer Date Recorded In the past 12 months has e [employer], gas, oil, or water company threatened to [...] How often do you attend restorationist or nondenominational serv ices? Patient declined 02/04/2023 Do you [...] Answer Date Recorded PHQ-2 Score 6 11/23/2024 [facility] - Occupational Stress [...] AM CDT Legal Sex Male 9:11 PM BOARD TURNER Gender Identity na 09/07/2021 10:32 AM CDT Sexual Orientation Choose not to disclose 2020 10:32 AM CDT documented as of this encounter Last Filed Vital Signs Vital Sign Reading Time Taken Comments Blood Pressure 109/79 01/15/2025 1:00 PM BOARD TURNER Pulse 108 01/15/2025 1:00 PM BOARD TURNER Temperature - - Respiratory Rate - - [...] diabetes control. 1 each 12/12/2023 11:05 AM BOARD TURNER 12/11/2023 calcium citrate-vitamin D3 (Citracal + D3) 315 mg-5 mcg (200 Unit) per tablet Take 1 tablet by mouth 2 (two) times a day with meals. 200 tablet 3 10/20/2024 10/20/20 25 famotidine (Pepcid) 20 mg tablet Take 1 tablet (20 mg total) by mouth 2 (two) times a day as needed for heartburn. 60 tablet 1 11/14/2024 12:18 PM BOARD TURNER 11/14/2024 fluoride, sodium, (PreviDent) 1.1 % gel [...] daily. 90 tablet 3 10/29/2024 11:46 AM BOARD TURNER 06/05/2024 gabapentin (NEURONTIN) 300 mg capsule Take 2 capsules (600 mg total) by mouth at bedtime. 04/07/2024 HYDROcodone-acetami nophen ([place]) 7.5-325 mg per tabletIndications:C hronic Pain/Nonacute Pain [...] 911. 15 mL 2 11/14/2024 12:18 PM BOARD TURNER 11/14/2024 ondansetron ODT (Zofran-ODT) 4 mg disintegrating tablet Dissolve 1 tablet (4 mg total) in the mouth every 8 (eight) hours as needed for nausea or vomiting. 30 tablet 3 11/26/2024 3:29 PM BOARD TURNER 06/05/2024 pen needle, diabetic (BD Ultra-Fine Short Pen Needle) 31 gauge x 5/16 needle Use 3 times a day 300 each 1 11/14/2024 12:18 PM BOARD TURNER 11/14/2024 rOPINIRole (Requip) 0.25 mg tabletIndications:R estless Leg Syndrome Take 2 tablets (0.5 mg total) by mouth at bedtime as needed (RLS). 30 tablet 11/26/2024 3:29 PM BOARD TURNER 11/13/2024 rosuvastatin (Crestor) 5 mg tablet Take 1 tablet (5 mg total) by mouth daily. 90 tablet 3 12/29/2024 1:25 PM BOARD TURNER 06/05/2024 sennosides-docusate sodium (Stool Softener-Stimulant Laxat) 8.6-50 mg per tabletIndications:T ransplant Liver (HCC),Medication Therapy Intermediate Not Anticoagulant,Drug Induced Constipation Take 1 tablet by mouth 2 (two) times a day. 100 tablet 02/22/2024 5:09 PM CDT 02/22/2024 tacrolimus (Prograf) 1 mg capsuleIndications: Transplant Liver (HCC),Medication Therapy Counsellors Not Anticoagulant Take 2 capsules (2 mg total) by mouth 2 (two) times a day. 01/01 dose change 360 capsule 3 01/01/2025 01/01/20 26 blood-glucose sensor (FreeStyle Apryl 3 Sensor) deviceIndications:D iabetes Mellitus Type 2 Hyperglycemia (HCC) 1 each every 14 (fourteen) days. 6 each 3 11/26/2024 3:29 PM BOARD TURNER 09/04/2024 01/29/20 25 insulin glargine 100 unit/mL [...] Progress Notes * Kiana Oliver M.D. - 01/15/2025 1:00 PM CST ATTESTATION FOR MANAGEMENT VISIT I saw and evaluated the patient and participated in the guadarrama portions of the service as noted below.I reviewed the documentation of Ms. Rylee Barrios RN and agree with the findings and plan. Thepatient appears well on exam. We will continue with radiation as planned and monitor weekly. I willsend him to Ophthalmology in [place] to help us manage any eye symptoms that he might have duringradiation and then to also try to prevent severe dry eye after radiation given the dose of radiation to his lacrimal gland. I took a photo with Photo Exam and will send it to Dr. Goldsmith so that she can see how well he has healed. Their questions were answered; they were comfortable with this plan. Kiana Oliver M.D., 01/15/2025 SUBJECTIVE REASON FOR VISIT Evaluation for side [...] (cGy) First Treatment Last Treatment Elapsed Days [id number] 200 1800 6000 01/05/2025 01/15/2025 10 Course Summary 01/05/2025 01/15/2025 10 The patient was seen and examined today with Dr. Oliver. The patient reports mild pain from skin irritation where the paper tape is holding the dressing in place. The wound bed is being protected with Vaseline and non-stick bandage. It is being treated with vinegar soaks daily and it being exposed to air for a part of each day. No signs of infection to the wound or surrounding skin. The patient denies pain with swallowing, eye dryness or eye pain. OBJECTIVE BP 109/79 (BP Location: Left arm, Patient Position: Sitting, Cuff Size: Regular) Pulse 108 PHYSICAL EXAM General: Alert and oriented in [...] patient is tolerating radiation treatment well overall. Provided patient with ProNet to secure dressing in place verses tape. Patient can continue with current skin care regimen. Dr. Oliver was in for any questions or concerns. He will continue with radiation treatment as planned. Signed by: Rylee Barrios R.N. 01/15/2025 1:06 PM BOARD TURNER D TURNER documented in this encounter Plan of Treatment Upcoming Encounters Date Type Department Care Team (Latest Contact Info) Description 02/03/2025 1:00 PM CDT Appointment Department of Radiation Oncology in [address] [address] Kiana Oliver M.D. [address] [place] [phone] 02/04/2025 1:00 PM CDT Appointment Department of Radiation Oncology in [address] [address] Kiana Oliver M.D. [address] [place] [phone] 02/05/2025 12:45 PM CDT Appointment Department of Radiation Oncology in [address] [address] Kiana Oliver M.D. [address] [place] [phone] 02/05/2025 1:00 PM CDT Appointment Department of Radiation Oncology in [address] [address] Kiana Oliver M.D. [address] [place] [phone] 02/06/2025 1:00 PM CDT Appointment Department of Radiation Oncology in [address] [address] Kiana Oliver M.D. [address] [place] [phone] 02/09/2025 1:00 PM CDT Appointment Department of Radiation Oncology in [address] [place] [address] Kiana Oliver M.D. [address] [place] [phone] 02/10/2025 1:00 PM CDT Appointment Department of Radiation Oncology in [place], [place] [address] [place] [phone] Kiana Oliver M.D. [address] [place] [phone] 02/11/2025 1:00 PM CDT Appointment Department of Radiation Oncology in [address] [address] Kiana Oliver M.D. [address] [place] [phone] 02/12/2025 1:00 PM CDT Appointment Department of Radiation Oncology in [place], [place] [address] [place] [phone] Kiana Oliver M.D. [address] [place] [phone] 02/12/2025 1:15 PM CDT Appointment Department of Radiation Oncology in [place], [place] [address] [place] [phone] Kiana Oliver M.D. [address] [place] [phone] 02/13/2025 1:00 PM CDT Appointment Department of Radiation Oncology in [address] [address] Kiana Oliver M.D. [address] [place] [phone] 02/16/2025 7:15 AM CDT Ancillary Procedure Department of Ophthalmology in [place], [place] [address] [place] [phone] Maida Tim O.D. [address] [place] [phone] 02/16/2025 8:00 AM CDT Comprehensive Visit Department of Ophthalmology in [place], [place] [address] [place] [phone] Desi Rasmussen O.D. [address] [place] [phone] 02/23/2025 8:15 AM CDT Clinical Communication Virtual Review in [address] [phone] 02/24/2025 9:40 AM CDT Office Visit Department of Dermatology in [address] [phone] Felipe Stewart M.D. [address] [place] [phone] 02/24/2025 10:00 AM CDT Office Visit Jeyson Kevin [facility] in [place], [place] [address] [place] [phone] Aide Welch, PKeven.-C., M.S. [address] [place] [phone] 03/03/2025 9:00 AM CDT Telemedicine Department of Nutrition and Diabetes Education in [address] [address] Katelin Alcaraz APRN, C.N.P., D.N.P. [address] [place] [phone] Mansi Ross M.S., RDN, LD [address] [place] [address] Scheduled Orders Name Type Priority Associated Diagnoses Orde r Schedule Management Visit Radiation Oncology Routine 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 Once for 1 Occurrences starting 01/15/2025 until 01/15/2025 Scheduled Referrals Name Type Priority Associated Diagnoses Order Schedule Ophthalmology - Ocular oncology consult (clinic) Outpatient Referral Routine Dry Eye Syndrome Left Expected: 01/29/2025, Expires: 04/14/2026 documented as of this encounter Visit Diagnoses Diagnosis Dry Eye Syndrome Left- Primary 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 documented in this encounter Additional Health Concerns Infection Onset Date Last Indicated Resolved Time Protective Environment 11/10/2023 11/10/2023 Assessment Noted Time PHQ-9 Depression Total Score: 19 025 12:23 PM BOARD TURNER documented as of this encounter Care Teams Cooperative Extension Agent Relationship Specialty Start Date End Date Kelly Mendez APRN, C.N.P., D.N.P. [address] [place] [address] PCP - General Internal Medicine 12/05/23 Rhea [facility] [place] or [place] lab Laboratory Medicine 02/26/23 documented as of this encounter
--- OUTSIDE RECORDS SUMMARY | 2025-02-02 22:50 | XMS_ITS | Encounter Summary ---
Author Organization [facility] Address [address] [place] [address] Care Team Providers Care Housing Inspectors Name Role Phone Kelly Mendez APRN C.N.P., D.N.P. Primary Car e Provider Reason for Visit * Radiation Therapy (Routine) - Authorized Specialty Diagnoses / Procedures Referred By Juanito ayala Referred To Contact Diagnoses 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 Procedures Prior Auth Rad Tx MS IMRT COMPLEX MS GUIDANCE FOR LOC RAD TX MS IMRT RADIOTHERAPY PLAN IMRT Kiana Oliver M.D. [address] [place] [address] Phone: tel: fax: [facility] [place] [address] [place] [phone] Referral ID Status Reason Start Date Expiration Date V isits Requested Visits Authorized [id number] Authorized 12/22/2024 03/10/2026 15 30 Encounter Details Date Type Department Care Team (Late st Contact Info) Description 01/26/2025 12:46 PM CDT Hospital Encounter Department of Radiation Oncology in [place], [place] [address] [place] [phone] Kiana Oliver M.D. 200 [place] [phone] Social History Tobacco Use Types Packs/Day Years Used Date Smoking Tobacco: Former Cigarettes Q uit: 2008 Passive Smoke Exposure: Never Smokeless Tobacco: Never Alcohol Use Standard Drinks/Week Comments Not Currently 0 (1 standard drink = 0.6 oz pur e alcohol) last 06/23/[address] [facility] Utilities Answer Date Recorded In [...] week 02/04/2023 How often do you attend episcopalian or zoroastrianism serv ices? Patient declined 02/04/2023 Do you belong to any clubs o r organizations such as episcopalian groups, unions, fraternal or athletic groups, or [...] AM CDT Legal Sex Male 9:11 PM TOURS CAPTAIN Gender Identity na 09/07/2021 10:32 AM CDT Sexual Orientation Choose not to disclose 2020 10:32 AM CDT documented as of this encounter Plan of Treatment Upcoming Encounters Date Type Department Care Team (Latest Contact Info) Description 02/03/2025 1:00 PM CDT Appointment Department of Radiation Oncology in [address] [phone] Kiana Oliver M.D. [address] [place] [phone] 02/04/2025 1:00 PM CDT Appointment Department of Radiation Oncology in [address] [phone] Kiana Oliver M.D. [address] [place] [phone] 02/05/2025 12:45 PM CDT Appointment Department of Radiation Oncology in [address] [address] Kiana Oliver M.D. [address] [place] [phone] 02/05/2025 1:00 PM CDT Appointment Department of Radiation Oncology in [address] [phone] Kiana Oliver M.D. [address] [place] [phone] 02/06/2025 1:00 PM CDT Appointment Department of Radiation Oncology in [address] [phone] Kiana Oliver M.D. [address] [place] [phone] 02/09/2025 1:00 PM CDT Appointment Department of Radiation Oncology in [place], [place] [address] [place] [phone] Kiana Oliver M.D. [address] [place] [address] 02/10/2025 1:00 PM CDT Appointment Department of Radiation Oncology in [place], [place] [address] [place] [phone] Kiana Oliver M.D. [address] [place] [address] 02/11/2025 1:00 PM CDT Appointment Department of Radiation Oncology in [address] [phone] Kiana Oliver M.D. [address] [place] [address] 02/12/2025 1:00 PM CDT Appointment Department of Radiation Oncology in [address] [phone] Kiana Oliver M.D. 200 [place] [address] 02/12/2025 1:15 PM CDT Appointment Department of Radiation Oncology in [address] [address] Kiana Oliver M.D. 200 [place] [address] 02/13/2025 1:00 PM CDT Appointment Department of Radiation Oncology in [address] [phone] Kiana Oliver M.D. [address] [place] [phone] 02/16/2025 7:15 AM CDT Ancillary Procedure Department of Ophthalmology in [place], [place] [address] [place] [phone] Maida Tim O.D. [address] [place] [phone] 02/16/2025 8:00 AM CDT Comprehensive Visit Department of Ophthalmology in [place], [place] [address] [place] [phone] Desi Rasmussen O.D. [address] [place] [phone] 02/23/2025 8:15 AM CDT Clinical Communication Virtual Review in [place], [place] 200 [place] [address] 02/24/2025 9:40 AM CDT Office Visit Department of Dermatology in [address] [phone] Felipe Stewart M.D. [address] [place] [phone] 02/24/2025 10:00 AM CDT Office Visit Jeyson milan [facility] for Transplantation and Clinical Regeneration in [place], [place] [address] [place] [phone] Aide Welch P.A.-C., M.S. [address] [place] [phone] 03/03/2025 9:00 AM CDT Telemedicine Department of Nutrition and Diabetes Education in [address] [phone] Katelin Alcaraz, MARCUS, C.N.P., D.N.P. [address] [place] [phone] Mansi Ross M.S., RDN, LD [address] [place] [address] documented as of this encounter Visit Diagnoses Not on filedocumented in this encounter Additional Health Concerns Infection Onset Date Last Indicated Resolved Time Protective Environment 11/10/2023 11/10/2023 Assessment Noted Time PHQ-9 Depression Total Score: 19 025 12:23 PM TOURS CAPTAIN documented as of this encounter Care Teams Housing Inspectors Relationship Specialty Start Date End Date Kelly Mendez APRN, C.N.P., D.N.P. [address] [place] [phone] PCP - General Internal Medicine 12/05/23 [facility] [place] or Anabel [facility] lab Laboratory Medicine 02/26/23 documented as of this encounter
--- OUTSIDE RECORDS SUMMARY | 2025-02-02 22:50 | XMS_ITS | Encounter Summary ---
Author Organization [facility] Address [address] [place] [address] Care Team Providers Care Program Counselor Name Role Phone AndreaKelly Chanel VELAZQUEZ C.N.Jose, D.N.P. Primary Car e Provider Encounter Details Date Type Department Care Team (Latest Contact Info) Description 01/19/2025 Orders Only Jeyson milan [facility] for Transplantation and Clinical Regeneration in [place], [place] [address] [place] [address] Christy Abad R.N., C.C.T.C. [address] [place] [address] Transplant Liver (HCC) (Primary Dx); Medication Therapy Fdc Not Anticoagulant Social History Tobacco Use Types Packs/Day Years Used Date Smoking Tobacco: Former Cigarettes Q uit: 2008 Passive Smoke Exposure: Never Smokeless Tobacco: Never Alcohol Use Standard Drinks/Week Comments Not Currently 0 (1 standard drink = 0.6 oz pur e alcohol) last 06/23/22 [facility] Utilities Answer Date Recorded In the past 12 months has e [employer], gas, oil, or water [employer] threatened to shut off services in your [...] How often do you attend taoist or mandaeism serv ices? Patient declined 02/04/2023 Do you [...] Answer Date Recorded PHQ-2 Score 6 11/23/2024 [facility] [place] of Occupat ional Health - Occupational Stress [...] AM CDT Legal Sex Male 9:11 PM PIZZA DRIVER Gender Identity na 09/07/2021 10:32 AM CDT Sexual Orientation Choose not to disclose 2020 10:32 AM CDT documented as of this encounter Plan of Treatment Upcoming Encounters Date Type Department Care Team (Latest Contact Info) Description 02/03/2025 1:00 PM CDT Appointment Department of Radiation Oncology in [place], [place] [address] [place] [phone] Kiana Oliver M.D. [address] [place] [address] 02/04/2025 1:00 PM CDT Appointment Department of Radiation Oncology in [address] [address] Kiana Oliver M.D. [address] [place] [phone] 02/05/2025 12:45 PM CDT Appointment Department of Radiation Oncology in [address] [address] Kiana Oliver M.D. [address] [place] [phone] 02/05/2025 1:00 PM CDT Appointment Department of Radiation Oncology in [address] [address] Kiana Oliver M.D. [address] [place] [phone] 02/06/2025 1:00 PM CDT Appointment Department of Radiation Oncology in [address] [address] Kiana Oliver M.D. [address] [place] [phone] 02/09/2025 1:00 PM CDT Appointment Department of Radiation Oncology in [address] [address] Kiana Oliver M.D. [address] [place] [phone] 02/10/2025 1:00 PM CDT Appointment Department of Radiation Oncology in [address] [address] Kiana Oliver M.D. [address] [place] [phone] 02/11/2025 1:00 PM CDT Appointment Department of Radiation Oncology in [place], [place] [address] [place] [address] Kiana Oliver M.D. [address] [place] [phone] 02/12/2025 1:00 PM CDT Appointment Department of Radiation Oncology in [place], [place] [address] [place] [phone] Kiana Oliver M.D. [address] [place] [phone] 02/12/2025 1:15 PM CDT Appointment Department of Radiation Oncology in [place], [place] [address] [place] [address] Kiana Oliver M.D. [address] [place] [phone] 02/13/2025 1:00 PM CDT Appointment Department of Radiation Oncology in [place], [place] [address] [place] [address] Kiana Oliver M.D. [address] [place] [phone] 02/16/2025 7:15 AM CDT Ancillary Procedure Department of Ophthalmology in [place], [place] [address] [place] [phone] Maida Tim O.D. [address] [place] [phone] 02/16/2025 8:00 AM CDT Comprehensive Visit Department of Ophthalmology in [place], [place] [address] [place] [phone] Desi Rasmussen O.D. [address] [place] [phone] 02/23/2025 8:15 AM CDT Clinical Communication Virtual Review in [place], [place] 200 [place] [phone] 02/24/2025 9:40 AM CDT Office Visit Department of Dermatology in [place], [place] [address] [place] [phone] Felipe Stewart M.D. [address] [place] [phone] 02/24/2025 10:00 AM CDT Office Visit Jeyson Kevin [facility] for Transplantation and Clinical Regeneration in [place], [place] [address] [place] [phone] Aide Welch P.A.-C., M.S. [address] [place] [phone] 03/03/2025 9:00 AM CDT Telemedicine Department of Nutrition and Diabetes Education in [place], [place] [address] [place] [phone] Katelin Alcaraz APRN, C.N.P., D.N.P. [address] [place] [phone] Mansi Ross M.S., RDN, LD [address] [place] [phone] Pending Results Name Type Priority Associated Diagnoses Date /Time Testosterone, Total and Free Lab Routine Transplant Liver (HCC) Medication Therapy Senior Supplier Quality Engineer Not Anticoagulant 01/30/2025 10:33 AM CDT Scheduled Orders Name Type Priority Associated Diagnoses Orde r Schedule Testosterone, Total and Free Lab Routine Transplant Liver (HCC) Medication Therapy Fdc Not Anticoagulant Expected: 01/30/2025, Expires: 04/21/2026 documented as of this encounter Visit Diagnoses Diagnosis Transplant Liver (HCC)- Primary Medication Therapy Fdc Not Anticoagulant documented in this encounter Additional Health Concerns Infection Onset Date Last Indicated Resolved Time Protective Environment 11/10/2023 11/10/2023 Assessment Noted Time PHQ-9 Depression Total Score: 19 025 12:23 PM PIZZA DRIVER documented as of this encounter Care Teams Program Counselor Relationship Specialty Start Date End Date Kelly Mendez APRN, C.N.P., D.N.P. [address] [place] [phone] PCP - General Internal Medicine 12/05/23 [facility] [place] or Anabel [facility] lab Laboratory Medicine 02/26/23 documented as of this encounter
--- OUTSIDE RECORDS SUMMARY | 2025-02-02 22:50 | XMS_ITS | Encounter Summary ---
Author Organization [facility] Address [address] [place] [address] Care Team Providers Care Dumper Operator Name Role Phone Andrea Kellylilia Buchanan APRN C.N.P., D.N.P. Primary Car e Provider Reason for Visit * Radiation Therapy (Routine) - Authorized Specialty Diagnoses / Procedures Referred By Juanito ayala Referred To Contact Diagnoses 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 Procedures Prior Auth Rad Tx ME IMRT COMPLEX ME GUIDANCE FOR LOC RAD TX ME IMRT RADIOTHERAPY PLAN IMRT Kiana Oliver M.D. [address] [place] [address] Phone: tel: fax: [facility] Radiation Oncology at [place] [address] [place] [phone] Referral ID Status Reason Start Date Expiration Date V isits Requested Visits Authorized [id number] Authorized 12/22/2024 03/10/2026 15 30 Encounter Details Date Type Department Care Team (Late st Contact Info) Description 01/15/2025 12:25 PM [employer] Hospital Encounter Department of Radiation Oncology in [address] [phone] Kiana Oliver M.D. [address] [place] [phone] Social History Tobacco Use Types Packs/Day Years Used Date Smoking Tobacco: Former Cigarettes Q uit: 2008 Passive Smoke Exposure: Never Smokeless Tobacco: Never Alcohol Use Standard Drinks/Week Comments Not Currently 0 (1 standard drink = 0.6 oz pur e alcohol) last 06/23/22 [facility] Utilities Answer Date Recorded In [...] week 02/04/2023 How often do you attend buddhist or buddhism serv ices? Patient declined 02/04/2023 Do you belong to any clubs o r organizations such as buddhist groups, unions, fraternal or athletic groups, or [...] Answer Date Recorded PHQ-2 Score 6 11/23/2024 [facility] of Occupat ional Health - Occupational [...] AM CDT Legal Sex Male 9:11 PM JOURNAL[employer] INTER[employer]IP Gender Identity na 09/07/2021 10:32 AM CDT Sexual Orientation Choose not to disclose 2020 10:32 AM CDT documented as of this encounter Plan of Treatment Upcoming Encounters Date Type Department Care Team (Latest Contact Info) Description 02/03/2025 1:00 PM CDT Appointment Department of Radiation Oncology in [address] [phone] Kiana Oliver M.D. [address] [place] [phone] 02/04/2025 1:00 PM CDT Appointment Department of Radiation Oncology in [address] [address] Kiana Oliver M.D. [address] [place] [phone] 02/05/2025 12:45 PM CDT Appointment Department of Radiation Oncology in [address] [address] Kiana Oliver M.D. [address] [place] [phone] 02/05/2025 1:00 PM CDT Appointment Department of Radiation Oncology in [address] [address] Kiana Oliver M.D. [address] [place] [phone] 02/06/2025 1:00 PM CDT Appointment Department of Radiation Oncology in [address] [address] Kiana Oliver M.D. [address] [place] [phone] 02/09/2025 1:00 PM CDT Appointment Department of Radiation Oncology in [place], [place] [address] [place] [phone] Kiana Oliver M.D. [address] [place] [phone] 02/10/2025 1:00 PM CDT Appointment Department of Radiation Oncology in [place], [place] [address] [place] [phone] Kiana Oliver M.D. [address] [place] [phone] 02/11/2025 1:00 PM CDT Appointment Department of Radiation Oncology in [address] [address] Kiana Oliver M.D. [address] [place] [phone] 02/12/2025 1:00 PM CDT Appointment Department of Radiation Oncology in [address] [address] Kiana Oliver M.D. [address] [place] [phone] 02/12/2025 1:15 PM CDT Appointment Department of Radiation Oncology in [address] [address] Kiana Oliver M.D. [address] [place] [phone] 02/13/2025 1:00 PM CDT Appointment Department of Radiation Oncology in [address] [address] Kiana Oliver M.D. [address] [place] [phone] 02/16/2025 7:15 AM CDT Ancillary Procedure Department of Ophthalmology in [place], [place] [address] [place] [phone] Maida Tim O.D. [address] [place] [phone] 02/16/2025 8:00 AM CDT Comprehensive Visit Department of Ophthalmology in [place], [place] [address] [place] [phone] Desi Rasmussen O.D. [address] [place] [phone] 02/23/2025 8:15 AM CDT Clinical Communication Virtual Review in [place], [place] 200 [place] [address] 02/24/2025 9:40 AM CDT Office Visit Department of Dermatology in [address] [address] Felipe Stewart M.D. [address] [place] [phone] 02/24/2025 10:00 AM CDT Office Visit Jeyson milan [facility] for Transplantation and Clinical Regeneration in [place], [place] [address] [place] [phone] Aide Welch P.A.Willie., M.S. [address] [place] [phone] 03/03/2025 9:00 AM CDT Telemedicine Department of Nutrition and Diabetes Education in [address] [phone] Katelin Alcaraz, MARCUS, C.N.P., D.N.P. [address] [place] [phone] Mansi Ross M.S., RDN, LD [address] [place] [address] documented as of this encounter Visit Diagnoses Not on filedocumented in this encounter Additional Health Concerns Infection Onset Date Last Indicated Resolved Time Protective Environment 11/10/2023 11/10/2023 Assessment Noted Time PHQ-9 Depression Total Score: 19 025 12:23 PM [employer] documented as of this encounter Care Teams Dumper Operator Relationship Specialty Start Date End Date Kelly Mendez APRN, C.N.P., D.N.P. [address] [place] [phone] PCP - General Internal Medicine 12/05/23 [facility] [place] or Anabel [facility] lab Laboratory Medicine 02/26/23 documented as of this encounter
--- OUTSIDE RECORDS SUMMARY | 2025-02-02 22:50 | XMS_ITS | Encounter Summary ---
Author Organization [facility] Address [address] [place] [address] Care Team Providers Care Automobile Salesman Name Role Phone Kelly Mendez APRN C.N.P., D.N.P. Primary Car e Provider Reason for Visit * Radiation Therapy (Routine) - Authorized Specialty Diagnoses / Procedures Referred By Juanito ayala Referred To Contact Diagnoses 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 Procedures Prior Auth Rad Tx AR IMRT COMPLEX AR GUIDANCE FOR LOC RAD TX AR IMRT RADIOTHERAPY PLAN IMRT Kiana Oliver M.D. [address] [place] [address] Phone: tel: fax: [facility] [place] [address] [place] [phone] Referral ID Status Reason Start Date Expiration Date V isits Requested Visits Authorized [id number] Authorized 12/22/2024 03/10/2026 15 30 Encounter Details Date Type Department Care Team (Late st Contact Info) Description 01/20/2025 12:18 PM TRAVEL INFORMATION CENTER SUPERVISOR Hospital Encounter Department of Radiation Oncology in [place], [place] [address] [place] [phone] Kiana Oliver M.D. [address] [place] [phone] Social History Tobacco Use Types Packs/Day Years Used Date Smoking Tobacco: Former Cigarettes Q uit: 2008 Passive Smoke Exposure: Never Smokeless Tobacco: Never Alcohol Use Standard Drinks/Week Comments Not Currently 0 (1 standard drink = 0.6 oz pur e alcohol) last 06/23/22 [facility] Utilities Answer Date Recorded In the past [...] How often do you attend hindu or anabaptist serv ices? Patient declined 02/04/2023 [...] Answer Date Recorded PHQ-2 Score 6 11/23/2024 [facility] - Occupational [...] AM CDT Legal Sex Male 9:11 PM TRAVEL INFORMATION CENTER SUPERVISOR Gender Identity na 09/07/2021 10:32 AM CDT Sexual Orientation Choose not to disclose 2020 10:32 AM CDT documented as of this encounter Plan of Treatment Upcoming Encounters Date Type Department Care Team (Latest Contact Info) Description 02/03/2025 1:00 PM CDT Appointment Department of Radiation Oncology in [address] [phone] Kiana Oliver M.D. [address] [place] [phone] 02/04/2025 1:00 PM CDT Appointment Department of Radiation Oncology in [address] [phone] Kiana Oliver M.D. [address] [place] [phone] 02/05/2025 12:45 PM CDT Appointment Department of Radiation Oncology in [address] [phone] Kiana Oliver M.D. [address] [place] [phone] 02/05/2025 1:00 PM CDT Appointment Department of Radiation Oncology in [address] [phone] Kiana Oliver M.D. [address] [place] [phone] 02/06/2025 1:00 PM CDT Appointment Department of Radiation Oncology in [address] [address] Kiana Oliver M.D. [address] [place] [phone] 02/09/2025 1:00 PM CDT Appointment Department of Radiation Oncology in [place], [place] [address] [place] [phone] Kiana Oliver M.D. [address] [place] [phone] 02/10/2025 1:00 PM CDT Appointment Department of Radiation Oncology in [place], [place] [address] [place] [phone] Kiana Oliver M.D. [address] [place] [phone] 02/11/2025 1:00 PM CDT Appointment Department of Radiation Oncology in [address] [phone] Kiana Oliver M.D. [address] [place] [phone] 02/12/2025 1:00 PM CDT Appointment Department of Radiation Oncology in [address] [address] Kiana Oliver M.D. [address] [place] [phone] 02/12/2025 1:15 PM CDT Appointment Department of Radiation Oncology in [address] [phone] Kiana Oliver M.D. [address] [place] [phone] 02/13/2025 1:00 PM CDT Appointment Department of Radiation Oncology in [address] [address] Kiana Oliver M.D. [address] [place] [phone] 02/16/2025 7:15 AM CDT Ancillary Procedure Department of Ophthalmology in [place], [place] [address] [place] [phone] Maida Tim O.D. [address] [place] [phone] 02/16/2025 8:00 AM CDT Comprehensive Visit Department of Ophthalmology in [place], [place] [address] [place] [phone] Desi Rasmussen O.D. [address] [place] [phone] 02/23/2025 8:15 AM CDT Clinical Communication Virtual Review in [place], [place] 200 [place] [address] 02/24/2025 9:40 AM CDT Office Visit Department of Dermatology in [address] [phone] Felipe Stewart M.D. [address] [place] [phone] 02/24/2025 10:00 AM CDT Office Visit Jeyson milan [facility] in [place], [place] [address] [place] [phone] Aide Welch P.A.Willie., M.S. [address] [place] [phone] 03/03/2025 9:00 AM CDT Telemedicine Department of Nutrition and Diabetes Education in [address] [phone] Katelin Alcaraz, MARCUS, C.N.P., D.N.P. [address] [place] [phone] Mansi Ross M.S., RDN, LD [address] [place] [address] documented as of this encounter Visit Diagnoses Not on filedocumented in this encounter Additional Health Concerns Infection Onset Date Last Indicated Resolved Time Protective Environment 11/10/2023 11/10/2023 Assessment Noted Time PHQ-9 Depression Total Score: 19 025 12:23 PM TRAVEL INFORMATION CENTER SUPERVISOR documented as of this encounter Care Teams Automobile Salesman Relationship Specialty Start Date End Date Kelly Mendez APRN, C.N.P., D.N.P. [address] [place] [phone] PCP - General Internal Medicine 12/05/23 [facility] [place] or Anabel [facility] lab Laboratory Medicine 02/26/23 documented as of this encounter
--- OUTSIDE RECORDS SUMMARY | 2025-02-02 22:50 | XMS_ITS | Encounter Summary ---
Author Organization [facility] Address [address] [place] [address] Care Team Providers Care Senior Product Analyst Name Role Phone Andrea Kellylilia Buchanan APRN C.N.PKathrin, D.N.P. Primary Car e Provider Reason for Referral * Specialty Diagnoses / Procedures Referred By Juanito t Referred To Contact Diagnoses 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 Kiana Oliver M.D. [address] [place] [address] Phone: tel: fax: [facility] Region Referral ID Status Reason Start Date Expiration Date Visits Re quested Visits Authorized Scheduling Instructions Please do not schedule if patient is receiving 10 fractions or less, unless requested by care team. TATION DESIGN DRAFTSPERSON Encounter Details Date Type Department Care Team (Latest Contact Info) Description 01/14/2025 12:31 PM SUBSTATION DESIGN DRAFTSPERSON - 01/14/2025 1:35 PM SUBSTATION DESIGN DRAFTSPERSON Hospital Encounter Department of Radiation Oncology in [place], [place] [address] [place] [phone] Kiana Oliver M.D. [address] [place] [phone] Herminio Barcenas R.N. 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 Social History Tobacco Use Types Packs/Day Years Used Date Smoking Tobacco: Former Cigarettes Q uit: 2008 Passive Smoke Exposure: Never Smokeless Tobacco: Never Alcohol Use Standard Drinks/Week Comments Not Currently 0 (1 standard drink = 0.6 oz pur e alcohol) last 06/23/22 [facility] Utilities Answer Date Recorded In the past 12 months has e [employer], [employer], oil, or water [employer] threatened to shut off services in your [...] often do you attend latter day or catholic serv ices? Patient declined 02/04/2023 Do you [...] Answer Date Recorded PHQ-2 Score 6 11/23/2024 [facility] - Occupational Stress Questionnaire Answer Date [...] AM CDT Legal Sex Male 9:11 PM SUBSTATION DESIGN DRAFTSPERSON Gender Identity na 09/07/2021 10:32 AM CDT [...] diabetes control. 1 each 12/12/2023 11:05 AM SUBSTATION DESIGN DRAFTSPERSON 12/11/2023 calcium citrate-vitamin D3 (Citracal + D3) 315 mg-5 mcg (200 Unit) per tablet Take 1 tablet by mouth 2 (two) times a day with meals. 200 tablet 3 10/20/2024 10/20/20 25 famotidine (Pepcid) 20 mg tablet Take 1 tablet (20 mg total) by mouth 2 (two) times a day as needed for heartburn. 60 tablet 1 11/14/2024 12:18 PM SUBSTATION DESIGN DRAFTSPERSON 11/14/2024 fluoride, sodium, (PreviDent) 1.1 % gel dental gelIndications:prev ention of dental caries Apply 1 Application to the mouth or throat daily Indications: tooth decay prevention. Floss, brush, baking soda rinse. Apply thin gel ribbon to trays wear 5 minutes. Remove trays expectorate excess gel. No eating drinking or rinsing for 30 min. 100 g 12 12/18/2024 12/18/19 folic acid 1 mg tablet Take 1 tablet (1 mg total) by mouth daily. 90 tablet 3 10/29/2024 11:46 AM SUBSTATION DESIGN DRAFTSPERSON 06/05/2024 gabapentin (NEURONTIN) 300 mg capsule Take 2 capsules (600 mg total) by mouth at bedtime. 04/07/2024 HYDROcodone-acetami nophen ([place]) 7.5-325 mg per tabletIndications:C hronic Pain/Nonacute Pain [...] 911. 15 mL 2 11/14/2024 12:18 PM SUBSTATION DESIGN DRAFTSPERSON 11/14/2024 ondansetron ODT (Zofran-ODT) 4 mg disintegrating tablet Dissolve 1 tablet (4 mg total) in the mouth every 8 (eight) hours as needed for nausea or vomiting. 30 tablet 3 11/26/2024 3:29 PM SUBSTATION DESIGN DRAFTSPERSON 06/05/2024 pen needle, diabetic (BD Ultra-Fine Short Pen Needle) 31 gauge x 5/16 needle Use 3 times a day 300 each 1 11/14/2024 12:18 PM SUBSTATION DESIGN DRAFTSPERSON 11/14/2024 rOPINIRole (Requip) 0.25 mg tabletIndications:R estless Leg Syndrome Take 2 tablets (0.5 mg total) by mouth at bedtime as needed (RLS). 30 tablet 11/26/2024 3:29 PM SUBSTATION DESIGN DRAFTSPERSON 11/13/2024 rosuvastatin (Crestor) 5 mg tablet Take 1 tablet (5 mg total) by mouth daily. 90 tablet 3 12/29/2024 1:25 PM SUBSTATION DESIGN DRAFTSPERSON 06/05/2024 sennosides-docusate sodium (Stool Softener-Stimulant Laxat) 8.6-50 mg per tabletIndications:T ransplant Liver (HCC),Medication Therapy Mobile Security Architect Not Anticoagulant,Drug Induced Constipation Take 1 tablet by mouth 2 (two) times a day. 100 tablet 02/22/2024 5:09 PM CDT 02/22/2024 tacrolimus (Prograf) 1 mg capsuleIndications: Transplant Liver (HCC),Medication Therapy Mcfp Not Anticoagulant Take 2 capsules (2 mg total) by mouth 2 (two) times a day. 01/01 dose change 360 capsule 3 01/01/2025 01/01/20 26 blood-glucose sensor (FreeStyle Apryl 3 Sensor) deviceIndications:D iabetes Mellitus Type 2 Hyperglycemia (HCC) 1 each every 14 (fourteen) days. 6 each 3 11/26/2024 3:29 PM SUBSTATION DESIGN DRAFTSPERSON 09/04/2024 01/29/20 25 insulin glargine 100 unit/mL [...] as of this encounter Progress Notes * Herminio Barcenas REmerald. - 01/14/2025 1:00 PM CST Patient was educated on side effects of radiation therapy. Their questions were answered to the best of my ability. The patient was encouraged to contact the team at any point, with questions or concerns. TATION DESIGN DRAFTSPERSON documented in this encounter Plan of Treatment Upcoming Encounters Date Type Department Care Team (Latest Contact Info) Description 02/03/2025 1:00 PM CDT Appointment Department of Radiation Oncology in [address] [phone] Kiana Oliver M.D. [address] [place] [phone] 02/04/2025 1:00 PM CDT Appointment Department of Radiation Oncology in [place], [place] [address] [place] [phone] Kiana Oliver M.D. [address] [place] [phone] 02/05/2025 12:45 PM CDT Appointment Department of Radiation Oncology in [address] [address] Kiana Oliver M.D. [address] [place] [phone] 02/05/2025 1:00 PM CDT Appointment Department of Radiation Oncology in [place], [place] [address] [place] [phone] Kiana Oliver M.D. [address] [place] [phone] 02/06/2025 1:00 PM CDT Appointment Department of Radiation Oncology in [address] [address] Kiana Oliver M.D. [address] [place] [phone] 02/09/2025 1:00 PM CDT Appointment Department of Radiation Oncology in [address] [address] Kiana Oliver M.D. [address] [place] [phone] 02/10/2025 1:00 PM CDT Appointment Department of Radiation Oncology in [place], [place] [address] [place] [phone] Kiana Oliver M.D. [address] [place] [phone] 02/11/2025 1:00 PM CDT Appointment Department of Radiation Oncology in [place], [place] [address] [place] [phone] Kiana Oliver M.D. [address] [place] [phone] 02/12/2025 1:00 PM CDT Appointment Department of Radiation Oncology in [address] [phone] Kiana Oliver M.D. [address] [place] [phone] 02/12/2025 1:15 PM CDT Appointment Department of Radiation Oncology in [place], [place] [address] [place] [address] Kiana Oliver M.D. [address] [place] [phone] 02/13/2025 1:00 PM CDT Appointment Department of Radiation Oncology in [place], [place] [address] [place] [phone] Kiana Oliver M.D. [address] [place] [phone] 02/16/2025 7:15 AM CDT Ancillary Procedure Department of Ophthalmology in [place], [place] [address] [place] [phone] Maida Tim O.D. [address] [place] [phone] 02/16/2025 8:00 AM CDT Comprehensive Visit Department of Ophthalmology in [place], [place] [address] [place] [phone] Desi Rasmussen O.D. [address] [place] [phone] 02/23/2025 8:15 AM CDT Clinical Communication Virtual Review in [place], [place] 200 [place] [address] 02/24/2025 9:40 AM CDT Office Visit Department of Dermatology in [address] [phone] Felipe Stewart M.D. [address] [place] [phone] 02/24/2025 10:00 AM CDT Office Visit [facility] in [address] [phone] Aide Welch PGnia., M.S. [address] [place] [phone] 03/03/2025 9:00 AM CDT Telemedicine Department of Nutrition and Diabetes Education in [address] [phone] Katelin Alcaraz APRN, C.N.P., D.N.P. [address] [place] [phone] Mansi Ross M.S., RDN, LD [address] [place] [phone] Scheduled Referrals Name Type Priority Associated Diagnoses Order Schedule Radiation Oncology - Nurse education visit (clinic) Outpatient Referral Routine 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 Once for 1 Occurrences starting 01/14/2025 until 01/14/2025 documented as of this encounter Visit Diagnoses Diagnosis 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 documented in this encounter Additional Health Concerns Infection Onset Date Last Indicated Resolved Time Protective Environment 11/10/2023 11/10/2023 Assessment Noted Time PHQ-9 Depression Total Score: 19 025 12:23 PM SUBSTATION DESIGN DRAFTSPERSON documented as of this encounter Care Teams Senior Product Analyst Relationship Specialty Start Date End Date Kelly Mendez APRN, C.N.P., D.N.P. [address] [place] [address] PCP - General Internal Medicine 12/05/23 [facility] [place] or [facility] lab Laboratory Medicine 02/26/23 documented as of this encounter
--- OUTSIDE RECORDS SUMMARY | 2025-02-02 22:50 | XMS_ITS | Encounter Summary ---
Author Organization [facility] Address [address] [place] [address] Care Team Providers Care Founder And President Name Role Phone AndreaKelly Chanel VELAZQUEZ, C.N.P., D.N.P. Primary Car e Provider Reason for Referral * Outpatient (Routine) - Authorized Specialty Diagnoses / Procedures Referred By Contac t Referred To Contact Katelin Rojas APRN, C.N.P., D.N.P. [address] [place] [phone] Phone: tel: fax: [facility] Referral ID Status Reason Start Date Expiration Date V isits Requested Visits Authorized [id number] Authorized 01/15/2025 07/17/2026 1 1 FINISHER TAILOR Reason for Visit * Outpatient (Routine) - Closed Specialty Diagnoses / Procedures Referred By Contac t Referred To Contact Katelin Rojas APRN, C.N.P., D.N.P. [address] [place] [address] Phone: tel: fax: [facility] Referral ID Status Reason Start Date Expiration Date Visits Re quested Visits Authorized [id number] Closed 01/08/2025 07/10/2026 1 1 Encounter Details Date Type Department Care Team (Late st Contact Info) Description 01/15/2025 11:00 AM FUR FINISHER TAILOR Telemedicine Department of Nutrition and Diabetes Education in [place], [place] [address] [place] [address] Katelin Alcaraz, MILLING PLANER OPERATOR, C.N.P., D.N.P. [address] [place] [phone] Mansi Ross M.S., RDN, LD [address] [place] [phone] Malnutrition Severe Protein-Calorie (HCC) (Primary Dx); Abdominal Pain Social History Tobacco Use Types Packs/Day Years Used Date Smoking Tobacco: Former Cigarettes Q uit: 2008 Passive Smoke Exposure: Never Smokeless Tobacco: Never Alcohol Use Standard Drinks/Week Comments Not Currently 0 (1 standard drink = 0.6 oz pur e alcohol) last 06/23/22 [facility] Utilities Answer Date Recorded In the past 12 months has e [employer], gas, oil, or water [employer] threatened to shut off services in your [...] week 02/04/2023 How often do you attend druze or scientology serv ices? Patient declined 02/04/2023 Do you belong to any clubs o r organizations such as druze groups, unions, fraternal or athletic groups, or [...] Answer Date Recorded PHQ-2 Score 6 11/23/2024 [facility] - Occupational [...] AM CDT Legal Sex Male 9:11 PM FUR FINISHER TAILOR Gender Identity na 09/07/2021 10:32 AM CDT Sexual Orientation Choose not to disclose 2020 10:32 AM CDT documented as of this encounter Progress Notes * Mansi Ross M.S., AUDRA, VANESSA - 01/15/2025 11:00 AM CST CHIEF COMPLAINT/REASON FOR VISIT Home Enteral Nutrition Follow-Up - Video Visit Patient referred by Katelin Alcaraz APRN, C.N.P., D.N.P. for follow up Medical Nutrition Therapy for * No diagnoses found * Consult conducted via real-time audio/video technology by Mansi Ross M.S., VANESSA ZHU [facility] to the patient in Patient's Home Start time: 11:03 am End time: 11:30 am Today's visit lasted 27 minutes. HISTORY OF PRESENT ILLNESS Mr. 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 A gastrostomy feeding tube was placed 11/13/24 during a recent hospitalization due to malnutrition and poor oral intake. 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 The following portions of the patient's history were reviewed and updated as appropriate: allergies, family history and social history. ASSESSMENT Relevant Social and Family History Resides in [place] with his . Pertinent Labs 11/11/24: HbA1C - 6.8 They report low BGs over night (down to 67 last night), then eats candy (14-16 units of long-lasting insulin in the morning). Nutrition Focused Physical Findings: Chewing/Swallowing: okay Nausea/Vomiting: reports nausea only with tube feeds. No episode of nausea or vomiting with oral intake. Tube Information 14 Serbian balloon gastrostomy placed by IR 11/13/2024 Food/Nutrient Related History Oral Intake: Eating better, he has been keeping calorie counts. With the past week ranging from 750-1850 kcal. Both Killian and his note when he does tube feeds he does not feel good and this impedes his oral intake. He does eat candy or some sweets overnight for his blood sugars. 11/13/25:pork chop with potatoe algratin Banana bread with butter Candy donuts Ensure Plus Estimated 1850 kcal Fluids: Ensure 1 every other day on average, water, diet (3/4 of a can). Feels he could use more fluids. Enteral Intake: Received the Peptamen 1.5 from [employer], however, continues to have nausea. Report on Sunday gave 4 oz of the tube feeds over 30 minutes and was bloated and nausea and did not eat much for the rest of the day. - Report feels a little better than the [employer] but still feels terrible on the tube feeds. Water Flushes: 60 mL daily Weight History 06/27/24: 45.2 kg 10/09/24: 46.2 kg 11/14/24: 45.2 kg 11/25/24: 47.1 kg 12/11/24: 45.9 kg 12/12/24: 45.8 kg (home scale) 01/15/25 : 46.3 kg ( home scale) Trending up on his home scale Estimation of Nutritional Needs Calories: 5728-7969 kcals/day (30-35 kcal/kg at a minimum, may need closer to 40 kcal/kg to gain) Protein: 55 grams/day (1.2 gram/kg) Fluid: 7927-0962 mL/day (30-35 mL/kg) Assessment Summary Killian has been able to see some gradual weight gain, per his report trying tube is interrupting hisoral intake. His oral intake has improved, with yesterday's calorie count of 1850. Dicussed increasing protein as most of his calories are from sweets. I recommended Boost Plus/Ensure Plus, or even aglass of whole milk daily, adding peanut butter to his banana bread/donut and trying some yogurt or cottage cheese. He is adamant that he does not want to use the feeding tube again. At this time I agree with continuing oral intake, with keeping a close eye on oral intake and weight. If we were to retry tube feeds again at this time I would recommend switching to Jejunostomy feeds to see if this helps decrease the nausea and discomfort. NUTRITION DIAGNOSIS Inadequate energy intake (NI-1.2) related to nausea, anorexia as evidenced by not consistently meeting goal calorie needs with tube feeding or oral intake. Nutrition Prescription/Recommendation Oral Program: General/regular diet, oral nutrition supplements daily (try drink 1/2 bottle in the morning, 1/2 in the afternoon or evening) INTERVENTION Education ONS options, building oral intake as discussed Source of protein Realistic weight gain Care Coordination Authorization on file to speak with DME/Infusion Company: yes DME/Infusion Company that will provide needed supplies for home: [employer] Nutrition parameter to monitor: Weight Desired Outcome: Gain, minimum safe weight for BMI of 18.5 is 51.5 kg Patient Goal(s): 1. Incorporate oral nutrition supplement daily 2. Incorporate a source of protein with eat meal and snack. Follow-up Plan Patient is followed in [facility]: Discussed with provider 4-6 weeks via video visit. Question, doing well on oral or with next tube exchange evaluate for jejunal extension. Time spent with patient (minutes): 27 FINISHER TAILOR documented in this encounter Plan of Treatment Upcoming Encounters Date Type Department Care Team (Latest Contact Info) Description 02/03/2025 1:00 PM CDT Appointment Department of Radiation Oncology in [place], [place] [address] [place] [phone] Kiana Oliver M.D. [address] [place] [address] 02/04/2025 1:00 PM CDT Appointment Department of Radiation Oncology in [place], [place] [address] [place] [phone] Kiana Oliver M.D. [address] [place] [phone] 02/05/2025 12:45 PM CDT Appointment Department of Radiation Oncology in [place], [place] [address] [place] [address] Kiana Oliver M.D. [address] [place] [phone] 02/05/2025 1:00 PM CDT Appointment Department of Radiation Oncology in [address] [phone] Kiana Oliver M.D. [address] [place] [phone] 02/06/2025 1:00 PM CDT Appointment Department of Radiation Oncology in [place], [place] [address] [place] [address] Kiana Oliver M.D. [address] [place] [phone] 02/09/2025 1:00 PM CDT Appointment Department of Radiation Oncology in [place], [place] [address] [place] [phone] Kiana Oliver M.D. [address] [place] [phone] 02/10/2025 1:00 PM CDT Appointment Department of Radiation Oncology in [address] [phone] Kiana Oliver M.D. [address] [place] [phone] 02/11/2025 1:00 PM CDT Appointment Department of Radiation Oncology in [place], [place] [address] [place] [address] Kiana Oliver M.D. [address] [place] [phone] 02/12/2025 1:00 PM CDT Appointment Department of Radiation Oncology in [place], [place] [address] [place] [address] Kiana Oliver M.D. [address] [place] [phone] 02/12/2025 1:15 PM CDT Appointment Department of Radiation Oncology in [place], [place] [address] [place] [address] Kiana Oliver M.D. [address] [place] [phone] 02/13/2025 1:00 PM CDT Appointment Department of Radiation Oncology in [place], [place] [address] [place] [address] Kiana Oliver M.D. [address] [place] [phone] 02/16/2025 7:15 AM CDT Ancillary Procedure Department of Ophthalmology in [place], [place] [address] [place] [phone] Maida Tim O.D. [address] [place] [phone] 02/16/2025 8:00 AM CDT Comprehensive Visit Department of Ophthalmology in [place], [place] [address] [place] [phone] Desi Rasmussen O.D. [address] [place] [phone] 02/23/2025 8:15 AM CDT Clinical Communication Virtual Review in [place], [place] [address] [place] [phone] 02/24/2025 9:40 AM CDT Office Visit Department of Dermatology in [place], [place] [address] [place] [phone] Felipe Stewart M.D. [address] [place] [phone] 02/24/2025 10:00 AM CDT Office Visit Jeyson Kevin [facility] for Transplantation and Clinical Regeneration in [place], [place] [address] [place] [phone] Aide Welch P.A.-C., M.S. [address] [place] [phone] 03/03/2025 9:00 AM CDT Telemedicine Department of Nutrition and Diabetes Education in [address] [address] Katelin Alcaraz APRN, C.N.P., D.N.P. [address] [place] [phone] Mansi Ross M.S., RDN, LD [address] [place] [phone] Scheduled Referrals Name Type Priority Associated Diagnoses Orde r Schedule Nutrition office visit (clinic) Outpatient Referral Routine Expected: 02/25/2025, Expires: 04/14/2026 documented as of this encounter Visit Diagnoses Diagnosis Malnutrition Severe Protein-Calorie (HCC)- Primary Abdominal Pain documented in this encounter Additional Health Concerns Infection Onset Date Last Indicated Resolved Time Protective Environment 11/10/2023 11/10/2023 Assessment Noted Time PHQ-9 Depression Total Score: 19 025 12:23 PM FUR FINISHER TAILOR documented as of this encounter Care Teams Founder And President Relationship Specialty Start Date End Date Kelly Mendez APRN, C.N.P., D.N.P. [address] [place] [address] PCP - General Internal Medicine 12/05/23 Rhea [facility] Lab [place] or Anabel [facility] lab Laboratory Medicine 02/26/23 documented as of this encounter
--- OUTSIDE RECORDS SUMMARY | 2025-02-02 22:50 | XMS_ITS | Encounter Summary ---
Author Organization [facility] Address [address] [place] [address] Care Team Providers Care Risk Tech Name Role Phone Kelly Mendez APRN C.N.P., D.N.P. Primary Car e Provider Reason for Visit * Radiation Therapy (Routine) - Authorized Specialty Diagnoses / Procedures Referred By Juanito ayala Referred To Contact Diagnoses 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 Procedures Prior Auth Rad Tx CO IMRT COMPLEX CO GUIDANCE FOR LOC RAD TX CO IMRT RADIOTHERAPY PLAN IMRT Kiana Oliver M.D. [address] [place] [address] Phone: tel: fax: [facility] Radiation Oncology at [place] [address] [place] [phone] Referral ID Status Reason Start Date Expiration Date V isits Requested Visits Authorized [id number] Authorized 12/22/2024 03/10/2026 15 30 Encounter Details Date Type Department Care Team (Late st Contact Info) Description 01/12/2025 12:12 PM EXERCISER Hospital Encounter Department of Radiation Oncology in [address] [phone] Kiana Oliver M.D. [address] [place] [phone] Social History Tobacco Use Types Packs/Day Years Used Date Smoking Tobacco: Former Cigarettes Q uit: 2008 Passive Smoke Exposure: Never Smokeless Tobacco: Never Alcohol Use Standard Drinks/Week Comments Not Currently 0 (1 standard drink = 0.6 oz pur e alcohol) last 06/23/22 [facility] Utilities Answer Date Recorded In the past [...] week 02/04/2023 How often do you attend rastafari or gnosticist serv ices? Patient declined 02/04/2023 Do you belong to any clubs o r organizations such as rastafari groups, unions, fraternal or athletic groups, or [...] Answer Date Recorded PHQ-2 Score 6 11/23/2024 [facility] - [...] AM CDT Legal Sex Male 9:11 PM EXERCISER Gender Identity na 09/07/2021 10:32 AM CDT Sexual Orientation Choose not to disclose 2020 10:32 AM CDT documented as of this encounter Plan of Treatment Upcoming Encounters Date Type Department Care Team (Latest Contact Info) Description 02/03/2025 1:00 PM CDT Appointment Department of Radiation Oncology in [address] [phone] Kiana Oliver M.D. [address] [place] [phone] 02/04/2025 1:00 PM CDT Appointment Department of Radiation Oncology in [address] [phone] Kiana Oliver M.D. [address] [place] [phone] 02/05/2025 12:45 PM CDT Appointment Department of Radiation Oncology in [address] [address] Kiana Oliver M.D. [address] [place] [phone] 02/05/2025 1:00 PM CDT Appointment Department of Radiation Oncology in [address] [phone] Kiana Oliver M.D. [address] [place] [phone] 02/06/2025 1:00 PM CDT Appointment Department of Radiation Oncology in [address] [phone] Kiana Oliver M.D. [address] [place] [phone] 02/09/2025 1:00 PM CDT Appointment Department of Radiation Oncology in [place], [place] [address] [place] [phone] Kiana Oliver M.D. [address] [place] [phone] 02/10/2025 1:00 PM CDT Appointment Department of Radiation Oncology in [place], [place] [address] [place] [phone] Kiana Oliver M.D. [address] [place] [phone] 02/11/2025 1:00 PM CDT Appointment Department of Radiation Oncology in [address] [address] Kiana Oliver M.D. [address] [place] [phone] 02/12/2025 1:00 PM CDT Appointment Department of Radiation Oncology in [address] [address] Kiana Oliver M.D. [address] [place] [phone] 02/12/2025 1:15 PM CDT Appointment Department of Radiation Oncology in [address] [phone] Kiana Oliver M.D. [address] [place] [phone] 02/13/2025 1:00 PM CDT Appointment Department of Radiation Oncology in [address] [phone] Kiana Oliver M.D. [address] [place] [phone] 02/16/2025 7:15 AM CDT Ancillary Procedure Department of Ophthalmology in [place], [place] [address] [place] [phone] Maida Tim O.D. [address] [place] [phone] 02/16/2025 8:00 AM CDT Comprehensive Visit Department of Ophthalmology in [place], [place] [address] [place] [phone] Desi Rasmussen O.D. [address] [place] [phone] 02/23/2025 8:15 AM CDT Clinical Communication Virtual Review in [place], [place] [address] [place] [address] 02/24/2025 9:40 AM CDT Office Visit Department of Dermatology in [address] [phone] Felipe Stewart M.D. [address] [place] [phone] 02/24/2025 10:00 AM CDT Office Visit Jeyson milan [facility] for Transplantation and Clinical Regeneration in [place], [place] [address] [place] [phone] Aide Welch P.A.Willie., M.S. [address] [place] [phone] 03/03/2025 9:00 AM CDT Telemedicine Department of Nutrition and Diabetes Education in [address] [phone] Katelin Alcaraz, MARCUS, C.N.P., D.N.P. [address] [place] [phone] Mansi Ross M.S., RDN, LD [address] [place] [address] documented as of this encounter Visit Diagnoses Not on filedocumented in this encounter Additional Health Concerns Infection Onset Date Last Indicated Resolved Time Protective Environment 11/10/2023 11/10/2023 Assessment Noted Time PHQ-9 Depression Total Score: 19 025 12:23 PM EXERCISER documented as of this encounter Care Teams Risk Tech Relationship Specialty Start Date End Date Kelly Mendez APRN, C.N.P., D.N.P. [address] [place] [phone] PCP - General Internal Medicine 12/05/23 [facility] [place] or Anabel [facility] lab Laboratory Medicine 02/26/23 documented as of this encounter
--- OUTSIDE RECORDS SUMMARY | 2025-02-02 22:50 | XMS_ITS | Encounter Summary ---
Author Organization [facility] Address [address] [place] [address] Care Team Providers Care Professor Of Law Name Role Phone Andrea Kellylilia Buchanan APRN C.N.Jose, D.N.P. Primary Car e Provider Reason for Visit * Transplant (Routine) - Closed Specialty Diagnoses / Procedures Referred By Juanito ayala Referred To Contact Transplant Diagnoses Transplant Liver (HCC) Medication Therapy Snf Not Anticoagulant Aide Welch P.A.-C., M.S. [address] [place] [phone] Phone: tel: fax: [facility] Referral ID Status Reason Start Date Expiration Date Visits Re quested Visits Authorized [id number] Closed 01/01/2025 07/03/2026 1 1 Encounter Details Date Type Department Care Team (Latest Contact Info) Description 01/19/2025 2:45 PM FACILITIES MECHANICAL DESIGN ENGINEER Telemedicine Jeyson Brown [facility] in [place], [place] [address] [place] [phone] Aide Welch P.A.-C., M.S. [address] [place] [phone] Jayda Shetty M.D. [address] [place] [phone] Transplant Liver (HCC); Medication Therapy Apprentice Plant Attendant Not Anticoagulant Social History Tobacco Use Types Packs/Day Years Used Date Smoking Tobacco: Former Cigarettes Q uit: 2008 Passive Smoke Exposure: Never Smokeless Tobacco: Never Alcohol Use Standard Drinks/Week Comments Not Currently 0 (1 standard drink = 0.6 oz pur e alcohol) last 06/23/22 [facility] Utilities Answer Date Recorded In the past 12 months has e [employer], [employer], or water [employer] threatened to shut off services in your [...] How often do you attend evangelical or druze serv ices? Patient declined 02/04/2023 [...] Answer Date Recorded PHQ-2 Score 6 11/23/2024 [facility] [place] [facility] - Occupational Stress Questionnaire Answer [...] AM CDT Legal Sex Male 9:11 PM FACILITIES MECHANICAL DESIGN ENGINEER Gender Identity na 09/07/2021 10:32 AM CDT Sexual Orientation Choose not to disclose 2020 10:32 AM CDT documented as of this encounter Progress Notes * Jayda Shetty M.D. - 01/19/2025 2:45 PM CST Note dictated * Jayda Shetty M.D. - 01/19/2025 2:45 PM CST SUBJECTIVE CHIEF COMPLAINT/REASON FOR VISIT Post-hospitalization followup. HISTORY OF PRESENT ILLNESS Mr. 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 The patient has suffered with severe protein calorie malnutrition posttransplant with an etiology which is unclear. [facility]. He continues to struggle with difficulty feeding through the gastric tube. His nutrition status is only mildly improved. An additional complication is that he has been diagnosed with squamous cell carcinoma. He is undergoing radiation treatment at this time. On today's visit, he reports very little subjective improvement in his overall sense of health and well being. Again, the feeding tube has been placed. His p.o. intake remains marginal. ASSESSMENT / PLAN #1 Status post orthotopic liver transplant 11/10/2023 From a liver standpoint, he is doing reasonably well. No worrisome liver biochemistry test abnormalities have been identified. #2 Chronic immunosuppression management On monotherapy with tacrolimus. His tacrolimus trough has continued to be at the low end of the scale, which is desired given his history of squamous cell carcinoma. We may contemplate transition to an alternative therapy such as an mTOR inhibitor at a later date. #3 Severe protein calorie malnutrition I am going to obtain a testosterone level with next laboratory studies to determine if he may benefit from androgen therapy for muscle development. Also going to reach out to our Nutrition team to determine if we can transition his tube to a post pyloric feeding tube, which may help improve his compliance with tube feedings. I am also going to consider a trial of Marinol. This will depend on insurance approval. Patient will be seen in clinic early next month. Will follow up on these changes at that time. Patient verbalized understanding of the assessment and treatment plan. Jayda Shetty M.D. CT CT Job ID: [id number]/jal documented in this encounter Plan of Treatment Upcoming Encounters Date Type Department Care Team (Latest Contact Info) Description 02/03/2025 1:00 PM CDT Appointment Department of Radiation Oncology in [address] [phone] Kiana Oliver M.D. [address] [place] [phone] 02/04/2025 1:00 PM CDT Appointment Department of Radiation Oncology in [address] [phone] Kiana Oliver M.D. [address] [place] [phone] 02/05/2025 12:45 PM CDT Appointment Department of Radiation Oncology in [address] [address] Kiana Oliver M.D. [address] [place] [phone] 02/05/2025 1:00 PM CDT Appointment Department of Radiation Oncology in [address] [address] Kiana Oliver M.D. [address] [place] [phone] 02/06/2025 1:00 PM CDT Appointment Department of Radiation Oncology in [address] [address] Kiana Oliver M.D. [address] [place] [phone] 02/09/2025 1:00 PM CDT Appointment Department of Radiation Oncology in [address] [phone] Kiana Oliver M.D. [address] [place] [phone] 02/10/2025 1:00 PM CDT Appointment Department of Radiation Oncology in [address] [phone] Kiana Oliver M.D. [address] [place] [phone] 02/11/2025 1:00 PM CDT Appointment Department of Radiation Oncology in [address] [phone] Kiana Oliver M.D. [address] [place] [phone] 02/12/2025 1:00 PM CDT Appointment Department of Radiation Oncology in [address] [phone] Kiana Oliver M.D. [address] [place] [phone] 02/12/2025 1:15 PM CDT Appointment Department of Radiation Oncology in [address] [phone] Kiana Oliver M.D. [address] [place] [phone] 02/13/2025 1:00 PM CDT Appointment Department of Radiation Oncology in [place], [place] [address] [place] [phone] Kiana Oliver M.D. [address] [place] [phone] 02/16/2025 7:15 AM CDT Ancillary Procedure Department of Ophthalmology in [place], [place] [address] [place] [phone] Maida Tim O.D. [address] [place] [phone] 02/16/2025 8:00 AM CDT Comprehensive Visit Department of Ophthalmology in [place], [place] [address] [place] [phone] Desi Rasmussen O.D. [address] [place] [phone] 02/23/2025 8:15 AM CDT Clinical Communication Virtual Review in [place], [place] 200 [place] [address] 02/24/2025 9:40 AM CDT Office Visit Department of Dermatology in [place], [place] [address] [place] [phone] Felipe Stewart M.D. [address] [place] [phone] 02/24/2025 10:00 AM CDT [facility] in [place], [place] [address] [place] [phone] Aide Welch P.A.-C., M.S. [address] [place] [address] 03/03/2025 9:00 AM CDT Telemedicine Department of Nutrition and Diabetes Education in [place], [place] [address] [place] [phone] Katelin Alcaraz APRN C.N.P., D.N.P. [address] [place] [phone] Mansi Ross M.S., RDN, LD [address] [place] [phone] documented as of this encounter Visit Diagnoses Diagnosis Transplant Liver (HCC) Medication Therapy Snf Not Anticoagulant documented in this encounter Additional Health Concerns Infection Onset Date Last Indicated Resolved Time Protective Environment 11/10/2023 11/10/2023 Assessment Noted Time PHQ-9 Depression Total Score: 19 025 12:23 PM FACILITIES MECHANICAL DESIGN ENGINEER documented as of this encounter Care Teams Professor Of Law Relationship Specialty Start Date End Date Kelly Mendez APRN, C.N.P., D.N.P. [address] [place] [phone] PCP - General Internal Medicine 12/05/23 [place] [facility] [place] [facility] lab Laboratory Medicine 02/26/23 documented as of this encounter
--- OUTSIDE RECORDS SUMMARY | 2025-02-02 22:50 | XMS_ITS | Encounter Summary ---
Author Organization [facility] Address [address] [place] [address] Care Team Providers Care Assessment Director Name Role Phone Kelly Mendez APRN C.N.P., D.N.P. Primary Car e Provider Reason for Visit * Radiation Therapy (Routine) - Authorized Specialty Diagnoses / Procedures Referred By Juanito ayala Referred To Contact Diagnoses 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 Procedures Prior Auth Rad Tx WA IMRT COMPLEX WA GUIDANCE FOR LOC RAD TX WA IMRT RADIOTHERAPY PLAN IMRT Kiana Oliver M.D. 200 [place] [address] Phone: tel: fax: [facility] Radiation Oncology at [place] [address] [place] [phone] Referral ID Status Reason Start Date Expiration Date V isits Requested Visits Authorized [id number] Authorized 12/22/2024 03/10/2026 15 30 Encounter Details Date Type Department Care Team (Late st Contact Info) Description 01/16/2025 12:21 PM HOSPICE AIDE Hospital Encounter Department of Radiation Oncology in [place], [place] [address] [place] [phone] Kiana Oliver M.D. [address] [place] [phone] Social History Tobacco Use Types Packs/Day Years Used Date Smoking Tobacco: Former Cigarettes Q uit: 2008 Passive Smoke Exposure: Never Smokeless Tobacco: Never Alcohol Use Standard Drinks/Week Comments Not Currently 0 (1 standard drink = 0.6 oz pur e alcohol) last 06/23/22 [facility] Utilities Answer Date Recorded In [...] week 02/04/2023 How often do you attend holiness or samaritan serv ices? Patient declined 02/04/2023 Do you belong to any clubs o r organizations such as holiness groups, unions, fraternal or athletic groups, or [...] Answer Date Recorded PHQ-2 Score 6 11/23/2024 [facility] - [...] AM CDT Legal Sex Male 9:11 PM HOSPICE AIDE Gender Identity na 09/07/2021 10:32 AM CDT Sexual Orientation Choose not to disclose 2020 10:32 AM CDT documented as of this encounter Plan of Treatment Upcoming Encounters Date Type Department Care Team (Latest Contact Info) Description 02/03/2025 1:00 PM CDT Appointment Department of Radiation Oncology in [address] [phone] Kiana Oliver M.D. [address] [place] [phone] 02/04/2025 1:00 PM CDT Appointment Department of Radiation Oncology in [address] [phone] Kiana Oliver M.D. [address] [place] [phone] 02/05/2025 12:45 PM CDT Appointment Department of Radiation Oncology in [address] [phone] Kiana Oliver M.D. [address] [place] [phone] 02/05/2025 1:00 PM CDT Appointment Department of Radiation Oncology in [address] [phone] Kiana Oliver M.D. [address] [place] [phone] 02/06/2025 1:00 PM CDT Appointment Department of Radiation Oncology in [address] [phone] Kiana Oliver M.D. [address] [place] [phone] 02/09/2025 1:00 PM CDT Appointment Department of Radiation Oncology in [place], [place] [address] [place] [phone] Kiana Oliver M.D. [address] [place] [phone] 02/10/2025 1:00 PM CDT Appointment Department of Radiation Oncology in [place], [place] [address] [place] [phone] Kiana Oliver M.D. [address] [place] [phone] 02/11/2025 1:00 PM CDT Appointment Department of Radiation Oncology in [address] [phone] Kiana Oliver M.D. [address] [place] [phone] 02/12/2025 1:00 PM CDT Appointment Department of Radiation Oncology in [address] [phone] Kiana Oliver M.D. [address] [place] [phone] 02/12/2025 1:15 PM CDT Appointment Department of Radiation Oncology in [address] [phone] Kiana Oliver M.D. [address] [place] [phone] 02/13/2025 1:00 PM CDT Appointment Department of Radiation Oncology in [address] [phone] Kiana Oliver M.D. [address] [place] [phone] 02/16/2025 7:15 AM CDT Ancillary Procedure Department of Ophthalmology in [place], [place] [address] [place] [phone] Maida Tim O.D. [address] [place] [phone] 02/16/2025 8:00 AM CDT Comprehensive Visit Department of Ophthalmology in [place], [place] [address] [place] [phone] Desi Rasmussen O.D. [address] [place] [phone] 02/23/2025 8:15 AM CDT Clinical Communication Virtual Review in [place], [place] 200 [place] [address] 02/24/2025 9:40 AM CDT Office Visit Department of Dermatology in [address] [phone] Felipe Stewart M.D. [address] [place] [phone] 02/24/2025 10:00 AM CDT Office Visit Jeyson milan [facility] for Transplantation and Clinical Regeneration in [place], [place] [address] [place] [phone] Aide Welch P.A.Willie., M.S. [address] [place] [phone] 03/03/2025 9:00 AM CDT Telemedicine Department of Nutrition and Diabetes Education in [address] [phone] Katelin Alcaraz, MARCUS, C.N.P., D.N.P. [address] [place] [phone] Mansi Ross M.S., RDN, LD [address] [place] [phone] documented as of this encounter Visit Diagnoses Not on filedocumented in this encounter Additional Health Concerns Infection Onset Date Last Indicated Resolved Time Protective Environment 11/10/2023 11/10/2023 Assessment Noted Time PHQ-9 Depression Total Score: 19 025 12:23 PM HOSPICE AIDE documented as of this encounter Care Teams Assessment Director Relationship Specialty Start Date End Date Kelly Mendez APRN, C.N.P., D.N.P. [address] [place] [phone] PCP - General Internal Medicine 12/05/23 [facility] [place] or [facility] lab Laboratory Medicine 02/26/23 documented as of this encounter
--- OUTSIDE RECORDS SUMMARY | 2025-02-02 22:50 | XMS_ITS | Encounter Summary ---
Author Organization [facility] Address [address] [place] [address] Care Team Providers Care Firer Tunnel Kiln Name Role Phone Andrea Kellylilia Buchanan APRN [...] RADIOTHERAPY PLAN IMRT Kiana Oliver M.D. 200 [place] [address] Phone: tel: fax: [facility] Radiation Oncology at [place] [address] [place] [phone] Referral ID Status Reason Start Date Expiration Date V isits Requested Visits Authorized [id number] Authorized 12/22/2024 03/10/2026 15 30 Encounter Details Date Type Department Care Team (Late st Contact Info) Description 01/21/2025 12:17 PM PRESTRESSED CONCRETE LABORER Hospital Encounter Department of Radiation Oncology in [address] [phone] Kiana Oliver M.D. [address] [place] [phone] Social History Tobacco Use Types Packs/Day Years Used Date Smoking Tobacco: Former Cigarettes Q uit: 2008 Passive Smoke Exposure: Never Smokeless Tobacco: Never Alcohol Use Standard Drinks/Week Comments Not Currently 0 (1 standard drink = 0.6 oz pur e alcohol) last 06/23/22 [facility] Utilities Answer Date Recorded In the [...] How often do you attend catholic or adventism serv ices? Patient declined 02/04/2023 Do you [...] Answer Date Recorded PHQ-2 Score 6 11/23/2024 [facility] - Occupational [...] AM CDT Legal Sex Male 9:11 PM PRESTRESSED CONCRETE LABORER Gender Identity na 09/07/2021 10:32 AM CDT Sexual Orientation Choose not to disclose 2020 10:32 AM CDT documented as of this encounter Plan of Treatment Upcoming Encounters Date Type Department Care Team (Latest Contact Info) Description 02/03/2025 1:00 PM CDT Appointment Department of Radiation Oncology in [address] [phone] Kiana Oliver M.D. [address] [place] [phone] 02/04/2025 1:00 PM CDT Appointment Department of Radiation Oncology in [address] [phone] Kiana Oliver M.D. [address] [place] [phone] 02/05/2025 12:45 PM CDT Appointment Department of Radiation Oncology in [address] [address] Kiana Oliver M.D. [address] [place] [phone] 02/05/2025 1:00 PM CDT Appointment Department of Radiation Oncology in [address] [phone] Kiana Oliver M.D. [address] [place] [phone] 02/06/2025 1:00 PM CDT Appointment Department of Radiation Oncology in [address] [phone] Kiana Oliver M.D. [address] [place] [phone] 02/09/2025 1:00 PM CDT Appointment Department of Radiation Oncology in [place], [place] [address] [place] [phone] Kiana Oliver M.D. [address] [place] [phone] 02/10/2025 1:00 PM CDT Appointment Department of Radiation Oncology in [place], [place] [address] [place] [phone] Kiana Oliver M.D. [address] [place] [phone] 02/11/2025 1:00 PM CDT Appointment Department of Radiation Oncology in [address] [address] Kiana Oliver M.D. [address] [place] [phone] 02/12/2025 1:00 PM CDT Appointment Department of Radiation Oncology in [address] [phone] Kiana Oliver M.D. [address] [place] [phone] 02/12/2025 1:15 PM CDT Appointment Department of Radiation Oncology in [address] [phone] Kiana Oliver M.D. [address] [place] [phone] 02/13/2025 1:00 PM CDT Appointment Department of Radiation Oncology in [address] [phone] Kiana Oliver M.D. [address] [place] [phone] 02/16/2025 7:15 AM CDT Ancillary Procedure Department of Ophthalmology in [place], [place] [address] [place] [phone] Maida Tim O.D. [address] [place] [phone] 02/16/2025 8:00 AM CDT Comprehensive Visit Department of Ophthalmology in [place], [place] [address] [place] [phone] Desi Rasmussen O.D. [address] [place] [phone] 02/23/2025 8:15 AM CDT Clinical Communication Virtual Review in [place], [place] 200 [place] [phone] 02/24/2025 9:40 AM CDT Office Visit Department of Dermatology in [address] [phone] Felipe Stewart M.D. [address] [place] [phone] 02/24/2025 10:00 AM CDT Office Visit Jeyson milan [facility] for Transplantation and Clinical Regeneration in [place], [place] [address] [place] [phone] Aide Welch P.A.Willie., M.S. [address] [place] [phone] 03/03/2025 9:00 AM CDT Telemedicine Department of Nutrition and Diabetes Education in [address] [phone] Katelin Alcaraz, MARCUS, C.N.P., D.N.P. [address] [place] [phone] Mansi Ross M.S., RDN, LD [address] [place] [phone] documented as of this encounter Visit Diagnoses Not on filedocumented in this encounter Additional Health Concerns Infection Onset Date Last Indicated Resolved Time Protective Environment 11/10/2023 11/10/2023 Assessment Noted Time PHQ-9 Depression Total Score: 19 025 12:23 PM PRESTRESSED CONCRETE LABORER documented as of this encounter Care Teams Firer Tunnel Kiln Relationship Specialty Start Date End Date Kelly Mendez APRN, C.N.P., D.N.P. [address] [place] [phone] PCP - General Internal Medicine 12/05/23 [facility] [place] or [facility] lab Laboratory Medicine 02/26/23 documented as of this encounter
--- OUTSIDE RECORDS SUMMARY | 2025-02-02 22:50 | XMS_ITS | Encounter Summary ---
Author Organization [facility] Address [address] [place] [address] Care Team Providers Care Educational Resource Coordinator Name Role Phone Kelly Mendez APRN C.N.P., D.N.P. Primary Car e Provider Encounter Details Date Type Department Care Team (Late st Contact Info) Description 01/15/2025 1:35 PM TECHNICAL PRODUCT MANAGER Ancillary Procedure Department of Oncology Social History Tobacco Use Types Packs/Day Years Used Date Smoking Tobacco: Former Cigarettes Q uit: 2008 Passive Smoke Exposure: Never Smokeless Tobacco: Never Alcohol Use Standard Drinks/Week Comments Not Currently 0 (1 standard drink = 0.6 oz pur e alcohol) last 06/23/22 [facility] Utilities Answer Date Recorded In the past 12 months has [facility] [employer], gas, oil, or water [employer] threatened to shut off services in your [...] week 02/04/2023 How often do you attend quaker or islam serv ices? Patient declined 02/04/2023 Do you belong to any clubs o r organizations such as quaker groups, unions, [employer] or athletic groups, or school groups? No [...] 6 11/23/2024 [facility] Occupat ional [facility] - Occupational Stress Questionnaire Answer Date [...] AM CDT Legal Sex Male 9:11 PM TECHNICAL PRODUCT MANAGER Gender Identity na 09/07/2021 10:32 AM CDT Sexual Orientation Choose not to disclose 2020 10:32 AM CDT documented as of this encounter Plan of Treatment Upcoming Encounters Date Type Department Care Team (Latest Contact Info) Description 02/03/2025 1:00 PM CDT Appointment Department of Radiation Oncology in [address] [phone] Kiana Oliver M.D. 200 [place] [address] 02/04/2025 1:00 PM CDT Appointment Department of Radiation Oncology in [place] [address] [place] [address] Kiana Oliver M.D. 200 [place] [address] 02/05/2025 12:45 PM CDT Appointment Department of Radiation Oncology in [place], [place] [address] [place] [phone] Kiana Oliver M.D. [address] [place] [phone] 02/05/2025 1:00 PM CDT Appointment Department of Radiation Oncology in [address] [address] Kiana Oliver M.D. [address] [place] [phone] 02/06/2025 1:00 PM CDT Appointment Department of Radiation Oncology in [address] [address] Kiana Oliver M.D. [address] [place] [phone] 02/09/2025 1:00 PM CDT Appointment Department of Radiation Oncology in [address] [address] Kiana Oliver M.D. [address] [place] [phone] 02/10/2025 1:00 PM CDT Appointment Department of Radiation Oncology in [address] [address] Kiana Oliver M.D. [address] [place] [phone] 02/11/2025 1:00 PM CDT Appointment Department of Radiation Oncology in [address] [address] Kiana Oliver M.D. [address] [place] [phone] 02/12/2025 1:00 PM CDT Appointment Department of Radiation Oncology in [place], [place] [address] [place] [address] Kiana Oliver M.D. [address] [place] [phone] 02/12/2025 1:15 PM CDT Appointment Department of Radiation Oncology in [place], [place] [address] [place] [phone] Kiana Oliver M.D. [address] [place] [phone] 02/13/2025 1:00 PM CDT Appointment Department of Radiation Oncology in [place], [place] [address] [place] [address] Kiana Oliver M.D. [address] [place] [phone] 02/16/2025 7:15 AM CDT Ancillary Procedure Department of Ophthalmology in [place], [place] [address] [place] [phone] Maida Tim O.D. [address] [place] [phone] 02/16/2025 8:00 AM CDT Comprehensive Visit Department of Ophthalmology in [place], [place] [address] [place] [phone] Desi Rasmussen O.D. [address] [place] [phone] 02/23/2025 8:15 AM CDT Clinical Communication Virtual Review in [place], [place] 200 [place] [address] 02/24/2025 9:40 AM CDT Office Visit Department of Dermatology in [place], [place] [address] [place] [phone] Felipe Stewart M.D. [address] [place] [phone] 02/24/2025 10:00 AM CDT Office Visit Jeyson Kevin [facility] for Transplantation and Clinical Regeneration in [place], [place] [address] [place] [phone] Aide Welch P.A.-C., M.S. [address] [place] [phone] 03/03/2025 9:00 AM CDT Telemedicine Department of Nutrition and Diabetes Education in [address] [address] Katelin Alcaraz APRN, C.N.P., D.N.P. [address] [place] [phone] Mansi Ross M.S., RDN, LD [address] [place] [phone] documented as of this encounter Procedures Procedure Name Priority Date/Time Associated Diagnosis Comments ONCOLOGY IMAGE EXAM Routine 01/15/2025 1 :33 PM TECHNICAL PRODUCT MANAGER documented in this encounter Results * Face 507-Oncology Image Exam (01/15/2025 1:33 PM TECHNICAL PRODUCT MANAGER) 01/15/2025 1:31 PM TECHNICAL PRODUCT MANAGER Narrative IIMS - 01/15/2025 1:33 PM TECHNICAL PRODUCT MANAGER This order has been created and auto-finalized to support the import of images acquired without order. The clinical documentation to support these images can be found on the encounter that produced images. us Provider Not In System IMG NON RAD IMAGING PROCE DURES Final Result IIMS NA documented in this encounter Visit Diagnoses Not on filedocumented in this encounter Additional Health Concerns Infection Onset Date Last Indicated Resolved Time Protective Environment 11/10/2023 11/10/2023 Assessment Noted Time PHQ-9 Depression Total Score: 19 025 12:23 PM TECHNICAL PRODUCT MANAGER documented as of this encounter Care Teams Educational Resource Coordinator Relationship Specialty Start Date End Date Kelly Mendez APRN, C.N.P., D.N.P. [address] [place] [phone] PCP - General Internal Medicine 12/05/23 Rhea [facility] [place] or Anabel [facility] lab Laboratory Medicine 02/26/23 documented as of this encounter
--- OUTSIDE RECORDS SUMMARY | 2025-02-02 22:50 | XMS_ITS | Encounter Summary ---
Author Organization [facility] Address [address] [place] [address] Care Team Providers Care Body Care Manager Name Role Phone Kelly Mendez APRN C.N.P., D.N.P. Primary Car e Provider Reason for Visit * Radiation Therapy (Routine) - Authorized Specialty Diagnoses / Procedures Referred By Juanito ayala Referred To Contact Diagnoses 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 Procedures Prior Auth Rad Tx WY IMRT COMPLEX WY GUIDANCE FOR LOC RAD TX W[place] IMRT RADIOTHERAPY PLAN IMRT Kiana Oliver M.D. 200 [place] [address] Phone: tel: fax: [facility] Radiation Oncology at [place] [address] [place] [phone] Referral ID Status Reason Start Date Expiration Date V isits Requested Visits Authorized [id number] Authorized 12/22/2024 03/10/2026 15 30 Encounter Details Date Type Department Care Team (Late st Contact Info) Description 01/23/2025 12:40 PM PARACHUTIST/COMBATANT DIVER QUALIFIED Hospital Encounter Department of Radiation Oncology in [place], [place] [address] [place] [phone] Kiana Oliver M.D. [address] [place] [phone] Social History Tobacco Use Types Packs/Day Years Used Date Smoking Tobacco: Former Cigarettes Q uit: 2008 Passive Smoke Exposure: Never Smokeless Tobacco: Never Alcohol Use Standard Drinks/Week Comments Not Currently 0 (1 standard drink = 0.6 oz pur e alcohol) last 06/23/22 [facility] Utilities Answer Date Recorded In the past [...] week 02/04/2023 How often do you attend confucianist or druze serv ices? Patient declined 02/04/2023 Do you belong to any clubs o r organizations such as confucianist groups, unions, fraternal or athletic groups, or [...] AM CDT Legal Sex Male 9:11 PM PARACHUTIST/COMBATANT DIVER QUALIFIED Gender Identity na 09/07/2021 10:32 AM CDT Sexual Orientation Choose not to disclose 2020 10:32 AM CDT documented as of this encounter Plan of Treatment Upcoming Encounters Date Type Department Care Team (Latest Contact Info) Description 02/03/2025 1:00 PM CDT Appointment Department of Radiation Oncology in [address] [address] Kiana Oliver M.D. [address] [place] [phone] 02/04/2025 1:00 PM CDT Appointment Department of Radiation Oncology in [address] [address] Kiana Oliver M.D. [address] [place] [phone] 02/05/2025 12:45 PM CDT Appointment Department of Radiation Oncology in [address] [address] Kiana Oliver M.D. [address] [place] [phone] 02/05/2025 1:00 PM CDT Appointment Department of Radiation Oncology in [address] [address] Kiana Oliver M.D. [address] [place] [phone] 02/06/2025 1:00 PM CDT Appointment Department of Radiation Oncology in [address] [address] Kiana Oliver M.D. [address] [place] [phone] 02/09/2025 1:00 PM CDT Appointment Department of Radiation Oncology in [place], [place] [address] [place] [phone] Kiana Oliver M.D. [address] [place] [phone] 02/10/2025 1:00 PM CDT Appointment Department of Radiation Oncology in [place], [place] [address] [place] [phone] Kiana Oliver M.D. [address] [place] [phone] 02/11/2025 1:00 PM CDT Appointment Department of Radiation Oncology in [address] [address] Kiana Oliver M.D. [address] [place] [phone] 02/12/2025 1:00 PM CDT Appointment Department of Radiation Oncology in [address] [address] Kiana Oliver M.D. [address] [place] [phone] 02/12/2025 1:15 PM CDT Appointment Department of Radiation Oncology in [address] [address] Kiana Oliver M.D. [address] [place] [phone] 02/13/2025 1:00 PM CDT Appointment Department of Radiation Oncology in [address] [address] Kiana Oliver M.D. [address] [place] [phone] 02/16/2025 7:15 AM CDT Ancillary Procedure Department of Ophthalmology in [place], [place] [address] [place] [phone] Maida Tim O.D. [address] [place] [phone] 02/16/2025 8:00 AM CDT Comprehensive Visit Department of Ophthalmology in [place], [place] [address] [place] [phone] Desi Rasmussen O.D. [address] [place] [phone] 02/23/2025 8:15 AM CDT Clinical Communication Virtual Review in [place], [place] 200 [place] [address] 02/24/2025 9:40 AM CDT Office Visit Department of Dermatology in [address] [address] Felipe Stewart M.D. [address] [place] [phone] 02/24/2025 10:00 AM CDT Office Visit Jeyson milan [facility] for Transplantation and Clinical Regeneration in [place], [place] [address] [place] [phone] Aide Welch P.A.Willie., M.S. [address] [place] [phone] 03/03/2025 9:00 AM CDT Telemedicine Department of Nutrition and Diabetes Education in [address] [address] Katelin Alcaraz, MARCUS, C.N.P., D.N.P. [address] [place] [phone] Mansi Ross M.S., RDN, LD [address] [place] [address] documented as of this encounter Visit Diagnoses Not on filedocumented in this encounter Additional Health Concerns Infection Onset Date Last Indicated Resolved Time Protective Environment 11/10/2023 11/10/2023 Assessment Noted Time PHQ-9 Depression Total Score: 19 025 12:23 PM PARACHUTIST/COMBATANT DIVER QUALIFIED documented as of this encounter Care Teams Body Care Manager Relationship Specialty Start Date End Date Kelly Mendez APRN, C.N.P., D.N.P. [address] [place] [phone] PCP - General Internal Medicine 12/05/23 [facility] [place] or Anabel [facility] lab Laboratory Medicine 02/26/23 documented as of this encounter
--- OUTSIDE RECORDS SUMMARY | 2025-02-02 22:50 | XMS_ITS | Encounter Summary ---
Author Organization [facility] Address [address] [place] [address] Care Team Providers Care Food Checker Name Role Phone Kelly Mendez APRN C.N.P., D.N.P. Primary Car e Provider Reason for Visit * Radiation Therapy (Routine) - Authorized Specialty Diagnoses / Procedures Referred By Juanito ayala Referred To Contact Diagnoses 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 Procedures Prior Auth Rad Tx W[place] IMRT COMPLEX W[place] GUIDANCE FOR LOC RAD TX W[place] IMRT RADIOTHERAPY PLAN IMRT Kiana Oliver M.D. 200 [place] [address] Phone: tel: fax: [facility] Radiation Oncology at [place] [address] [place] [phone] Referral ID Status Reason Start Date Expiration Date V isits Requested Visits Authorized [id number] Authorized 12/22/2024 03/10/2026 15 30 Encounter Details Date Type Department Care Team (Late st Contact Info) Description 01/13/2025 12:13 PM OIL SALES AND SERVICE REP Hospital Encounter Department of Radiation Oncology in [address] [phone] Kiana Oliver M.D. [address] [place] [phone] Social History Tobacco Use Types Packs/Day Years Used Date Smoking Tobacco: Former Cigarettes Q uit: 2008 Passive Smoke Exposure: Never Smokeless Tobacco: Never Alcohol Use Standard Drinks/Week Comments Not Currently 0 (1 standard drink = 0.6 oz pur e alcohol) last 06/23/22 [facility] Utilities Answer Date Recorded In [...] week 02/04/2023 How often do you attend baptism or orthodoxy serv ices? Patient declined 02/04/2023 Do you belong to any clubs o r organizations such as baptism groups, unions, fraternal or athletic groups, or [...] Date Recorded PHQ-2 Score 6 11/23/2024 [facility] of Occupat ional Health - [...] AM CDT Legal Sex Male 9:11 PM OIL SALES AND SERVICE REP Gender Identity na 09/07/2021 10:32 AM CDT Sexual Orientation Choose not to disclose 2020 10:32 AM CDT documented as of this encounter Plan of Treatment Upcoming Encounters Date Type Department Care Team (Latest Contact Info) Description 02/03/2025 1:00 PM CDT Appointment Department of Radiation Oncology in [address] [address] Kiana Oliver M.D. [address] [place] [phone] 02/04/2025 1:00 PM CDT Appointment Department of Radiation Oncology in [address] [address] Kiana Oliver M.D. [address] [place] [phone] 02/05/2025 12:45 PM CDT Appointment Department of Radiation Oncology in [address] [address] Kiana Oliver M.D. [address] [place] [phone] 02/05/2025 1:00 PM CDT Appointment Department of Radiation Oncology in [address] [address] Kiana Oliver M.D. [address] [place] [phone] 02/06/2025 1:00 PM CDT Appointment Department of Radiation Oncology in [address] [address] Kiana Oliver M.D. [address] [place] [phone] 02/09/2025 1:00 PM CDT Appointment Department of Radiation Oncology in [place], [place] [address] [place] [phone] Kiana Oliver M.D. [address] [place] [phone] 02/10/2025 1:00 PM CDT Appointment Department of Radiation Oncology in [place], [place] [address] [place] [phone] Kiana Oliver M.D. [address] [place] [phone] 02/11/2025 1:00 PM CDT Appointment Department of Radiation Oncology in [address] [address] Kiana Oliver M.D. [address] [place] [phone] 02/12/2025 1:00 PM CDT Appointment Department of Radiation Oncology in [address] [address] Kiana Oliver M.D. [address] [place] [phone] 02/12/2025 1:15 PM CDT Appointment Department of Radiation Oncology in [address] [address] Kiana Oliver M.D. [address] [place] [phone] 02/13/2025 1:00 PM CDT Appointment Department of Radiation Oncology in [address] [address] Kiana Oliver M.D. [address] [place] [phone] 02/16/2025 7:15 AM CDT Ancillary Procedure Department of Ophthalmology in [place], [place] [address] [place] [phone] Maida Tim O.D. [address] [place] [phone] 02/16/2025 8:00 AM CDT Comprehensive Visit Department of Ophthalmology in [place], [place] [address] [place] [phone] Desi Rasmussen O.D. [address] [place] [phone] 02/23/2025 8:15 AM CDT Clinical Communication Virtual Review in [place], [place] 200 [place] [address] 02/24/2025 9:40 AM CDT Office Visit Department of Dermatology in [address] [address] Felipe Stewart M.D. [address] [place] [phone] 02/24/2025 10:00 AM CDT Office Visit Jeyson milan [facility] for Transplantation and Clinical Regeneration in [place], [place] [address] [place] [phone] Aide Welch P.A.Willie., M.S. [address] [place] [phone] 03/03/2025 9:00 AM CDT Telemedicine Department of Nutrition and Diabetes Education in [address] [address] Katelin Alcaraz, MARCUS, C.N.P., D.N.P. [address] [place] [phone] Mansi Ross M.S., RDN, LD [address] [place] [address] documented as of this encounter Visit Diagnoses Not on filedocumented in this encounter Additional Health Concerns Infection Onset Date Last Indicated Resolved Time Protective Environment 11/10/2023 11/10/2023 Assessment Noted Time PHQ-9 Depression Total Score: 19 025 12:23 PM OIL SALES AND SERVICE REP documented as of this encounter Care Teams Food Checker Relationship Specialty Start Date End Date Kelly Mendez APRN, C.N.P., D.N.P. [address] [place] [phone] PCP - General Internal Medicine 12/05/23 [facility] [place] or Anabel [facility] lab Laboratory Medicine 02/26/23 documented as of this encounter
--- OUTSIDE RECORDS SUMMARY | 2025-02-02 22:50 | XMS_ITS | Encounter Summary ---
Author Organization [facility] Address [address] [place] [address] Care Team Providers Care Automotive Window Tinter Name Role Phone Andrea Kellylilia Buchanan APRN C.N.P., D.N.P. Primary Car e Provider Reason for Visit * Radiation Therapy (Routine) - Authorized Specialty Diagnoses / Procedures Referred By Juanito ayala Referred To Contact Diagnoses 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 Procedures Prior Auth Rad Tx SD IMRT COMPLEX SD GUIDANCE FOR LOC RAD TX SD IMRT RADIOTHERAPY PLAN IMRT Kiana Oliver M.D. [address] [place] [address] Phone: tel: fax: [facility] Radiation Oncology at [place] [address] [place] [phone] Referral ID Status Reason Start Date Expiration Date V isits Requested Visits Authorized [id number] Authorized 12/22/2024 03/10/2026 15 30 Encounter Details Date Type Department Care Team (Late st Contact Info) Description 01/19/2025 12:24 PM [facility] Encounter Department of Radiation Oncology in [address] [phone] Kiana Oliver M.D. [address] [place] [phone] Social History Tobacco Use Types Packs/Day Years Used Date Smoking Tobacco: Former Cigarettes Q uit: 2008 Passive Smoke Exposure: Never Smokeless Tobacco: Never Alcohol Use Standard Drinks/Week Comments Not Currently 0 (1 standard drink = 0.6 oz pur e alcohol) last 06/23/22 [facility] Utilities Answer Date Recorded In the [...] How often do you attend mormon or sikh serv ices? Patient declined 02/04/2023 [...] Recorded PHQ-2 Score 6 11/23/2024 [facility] of Occupat ional Health - Occupational Stress [...] AM CDT Legal Sex Male 9:11 PM SUPERVISOR MATRIX Gender Identity na 09/07/2021 10:32 AM CDT Sexual Orientation Choose not to disclose 2020 10:32 AM CDT documented as of this encounter Plan of Treatment Upcoming Encounters Date Type Department Care Team (Latest Contact Info) Description 02/03/2025 1:00 PM CDT Appointment Department of Radiation Oncology in [address] [phone] Kiana Oliver M.D. [address] [place] [phone] 02/04/2025 1:00 PM CDT Appointment Department of Radiation Oncology in [address] [phone] Kiana Oliver M.D. [address] [place] [phone] 02/05/2025 12:45 PM CDT Appointment Department of Radiation Oncology in [address] [phone] Kiana Oliver M.D. [address] [place] [phone] 02/05/2025 1:00 PM CDT Appointment Department of Radiation Oncology in [address] [phone] Kiana Oliver M.D. [address] [place] [phone] 02/06/2025 1:00 PM CDT Appointment Department of Radiation Oncology in [address] [phone] Kiana Oliver M.D. [address] [place] [phone] 02/09/2025 1:00 PM CDT Appointment Department of Radiation Oncology in [place], [place] [address] [place] [phone] Kiana Oliver M.D. [address] [place] [phone] 02/10/2025 1:00 PM CDT Appointment Department of Radiation Oncology in [place], [place] [address] [place] [phone] Kiana Oliver M.D. [address] [place] [phone] 02/11/2025 1:00 PM CDT Appointment Department of Radiation Oncology in [address] [phone] Kiana Oliver M.D. [address] [place] [phone] 02/12/2025 1:00 PM CDT Appointment Department of Radiation Oncology in [address] [phone] Kiana Oliver M.D. [address] [place] [phone] 02/12/2025 1:15 PM CDT Appointment Department of Radiation Oncology in [address] [phone] Kiana Oliver M.D. [address] [place] [phone] 02/13/2025 1:00 PM CDT Appointment Department of Radiation Oncology in [address] [phone] Kiana Oliver M.D. [address] [place] [phone] 02/16/2025 7:15 AM CDT Ancillary Procedure Department of Ophthalmology in [place], [place] [address] [place] [phone] Maida Tim O.D. [address] [place] [phone] 02/16/2025 8:00 AM CDT Comprehensive Visit Department of Ophthalmology in [place], [place] [address] [place] [phone] Desi Rasmussen O.D. [address] [place] [phone] 02/23/2025 8:15 AM CDT Clinical Communication Virtual Review in [place], [place] 200 [place] [address] 02/24/2025 9:40 AM CDT Office Visit Department of Dermatology in [address] [phone] Felipe Stewart M.D. [address] [place] [phone] 02/24/2025 10:00 AM CDT Office Visit Jeyson milan [facility] in [place], [place] [address] [place] [phone] Aide Welch P.A.Willie., M.S. [address] [place] [phone] 03/03/2025 9:00 AM CDT Telemedicine Department of Nutrition and Diabetes Education in [address] [phone] Katelin Alcaraz, MARCUS, C.N.P., D.N.P. [address] [place] [phone] Mansi Ross M.S., RDN, LD [address] [place] [address] documented as of this encounter Visit Diagnoses Not on filedocumented in this encounter Additional Health Concerns Infection Onset Date Last Indicated Resolved Time Protective Environment 11/10/2023 11/10/2023 Assessment Noted Time PHQ-9 Depression Total Score: 19 025 12:23 PM SUPERVISOR [employer] documented as of this encounter Care Teams Automotive Window Tinter Relationship Specialty Start Date End Date Kelly Mendez APRN, C.N.P., D.N.P. [address] [place] [phone] PCP - General Internal Medicine 12/05/23 [facility] [place] or Anabel [facility] lab Laboratory Medicine 02/26/23 documented as of this encounter
--- OUTSIDE RECORDS SUMMARY | 2025-02-02 22:51 | XMS_ITS | Encounter Summary ---
Author Organization [facility] Address [address] [place] [address] Care Team Providers Care Hand Thermal Cutter Name Role Phone Kelly Mendez Chanel VELAZQUEZ C.N.P., D.N.P. Primary Car e Provider Encounter Details Date Type Department Care Team (Latest Contact Info) Description 01/08/2025 9:50 AM DIETARY COOK - 01/08/2025 12:31 PM [facility] Hospital Encounter Department of Laboratory Medicine in [place], [place] [address] [place] [address] Deann Zhu APRN, C.N.P., M.S. [address] [place] [address] Transplant Liver (HCC); Medication Therapy Consulting Services Manager Not Anticoagulant; Immunodeficiency Due To Drugs (HCC); [...] 0.6 oz pur e alcohol) last 06/23/22 [facility] Utilities Answer Date Recorded In the past 12 months has [employer], gas, oil, or water [employer] threatened to shut off services in your [...] week 02/04/2023 How often do you attend temple or synagogue serv ices? Patient declined 02/04/2023 Do you belong to any clubs o r organizations such as temple groups, unions, fraternal or athletic groups, or [...] Answer Date Recorded PHQ-2 Score 6 11/23/2024 [facility] of Occupat ional Health - [...] AM CDT Legal Sex Male 9:11 PM DIETARY COOK Gender Identity na 09/07/2021 10:32 AM CDT [...] diabetes control. 1 each 12/12/2023 11:05 AM DIETARY COOK 12/11/2023 calcium citrate-vitamin D3 (Citracal + D3) 315 mg-5 mcg (200 Unit) per tablet Take 1 tablet by mouth 2 (two) times a day with meals. 200 tablet 3 10/20/2024 10/20/20 25 famotidine (Pepcid) 20 mg tablet Take 1 tablet (20 mg total) by mouth 2 (two) times a day as needed for heartburn. 60 tablet 1 11/14/2024 12:18 PM DIETARY COOK 11/14/2024 fluoride, sodium, (PreviDent) 1.1 % gel [...] daily. 90 tablet 3 10/29/2024 11:46 AM DIETARY COOK 06/05/2024 gabapentin (NEURONTIN) 300 mg capsule Take 2 capsules (600 mg total) by mouth at bedtime. 04/07/2024 HYDROcodone-acetami nophen (Croswell) 7.5-325 mg per tabletIndications:C hronic Pain/Nonacute Pain [...] 911. 15 mL 2 11/14/2024 12:18 PM DIETARY COOK 11/14/2024 ondansetron ODT (Zofran-ODT) 4 mg disintegrating tablet Dissolve 1 tablet (4 mg total) in the mouth every 8 (eight) hours as needed for nausea or vomiting. 30 tablet 3 11/26/2024 3:29 PM DIETARY COOK 06/05/2024 pen needle, diabetic (BD Ultra-Fine Short Pen Needle) 31 gauge x 5/16 needle Use 3 times a day 300 each 1 11/14/2024 12:18 PM DIETARY COOK 11/14/2024 rOPINIRole (Requip) 0.25 mg tabletIndications:R estless Leg Syndrome Take 2 tablets (0.5 mg total) by mouth at bedtime as needed (RLS). 30 tablet 11/26/2024 3:29 PM DIETARY COOK 11/13/2024 rosuvastatin (Crestor) 5 mg tablet Take 1 tablet (5 mg total) by mouth daily. 90 tablet 3 12/29/2024 1:25 PM DIETARY COOK 06/05/2024 sennosides-docusate sodium (Stool Softener-Stimulant Laxat) 8.6-50 mg per tabletIndications:T ransplant Liver (HCC),Medication Therapy Mcc Not Anticoagulant,Drug Induced Constipation Take 1 tablet by mouth 2 (two) times a day. 100 tablet 02/22/2024 5:09 PM CDT 02/22/2024 tacrolimus (Prograf) 1 mg capsuleIndications: Transplant Liver (HCC),Medication Therapy Mcc Not Anticoagulant Take 2 capsules (2 mg total) by mouth 2 (two) times a day. 01/01 dose change 360 capsule 3 01/01/2025 01/01/20 26 blood-glucose sensor (FreeStyle Apryl 3 Sensor) deviceIndications:D iabetes Mellitus Type 2 Hyperglycemia (HCC) 1 each every 14 (fourteen) days. 6 each 3 11/26/2024 3:29 PM DIETARY COOK 09/04/2024 01/29/20 25 insulin glargine 100 unit/mL [...] 01/29/20 25 documented as of this encounter Plan of Treatment Upcoming Encounters Date Type Department Care Team (Latest Contact Info) Description 02/03/2025 1:00 PM CDT Appointment Department of Radiation Oncology in [address] [phone] Kiana Oliver M.D. [address] [place] [phone] 02/04/2025 1:00 PM CDT Appointment Department of Radiation Oncology in [address] [phone] Kinaa Oliver M.D. [address] [place] [phone] 02/05/2025 12:45 PM CDT Appointment Department of Radiation Oncology in [address] [phone] Kiana Oliver M.D. [address] [place] [phone] 02/05/2025 1:00 PM CDT Appointment Department of Radiation Oncology in [place], [place] [address] [place] [phone] Kiana Oliver M.D. [address] [place] [phone] 02/06/2025 1:00 PM CDT Appointment Department of Radiation Oncology in [place], [place] [address] [place] [address] Kiana Oliver M.D. [address] [place] [phone] 02/09/2025 1:00 PM CDT Appointment Department of Radiation Oncology in [address] [phone] Kiana Oliver M.D. [address] [place] [phone] 02/10/2025 1:00 PM CDT Appointment Department of Radiation Oncology in [place], [place] [address] [place] [phone] Kiana Oliver M.D. [address] [place] [phone] 02/11/2025 1:00 PM CDT Appointment Department of Radiation Oncology in [address] [phone] Kiana Oliver M.D. [address] [place] [phone] 02/12/2025 1:00 PM CDT Appointment Department of Radiation Oncology in [address] [address] Kiana Oliver M.D. [address] [place] [phone] 02/12/2025 1:15 PM CDT Appointment Department of Radiation Oncology in [place], [place] [address] [place] [phone] Kiana Oliver M.D. [address] [place] [phone] 02/13/2025 1:00 PM CDT Appointment Department of Radiation Oncology in [place], [place] [address] [place] [phone] Kiana Oliver M.D. [address] [place] [phone] 02/16/2025 7:15 AM CDT Ancillary Procedure Department of Ophthalmology in [place], [place] [address] [place] [phone] Maida Tim O.D. [address] [place] [phone] 02/16/2025 8:00 AM CDT Comprehensive Visit Department of Ophthalmology in [place], [place] [address] [place] [phone] Desi Rasmussen O.D. [address] [place] [phone] 02/23/2025 8:15 AM CDT Clinical Communication Virtual Review in [place], [place] 200 [place] [address] 02/24/2025 9:40 AM CDT Office Visit Department of Dermatology in [address] [phone] Felipe Stewart M.D. [address] [place] [phone] 02/24/2025 10:00 AM CDT [facility] [place], [place] [address] [place] [phone] Aide Welch P.A.-C., M.S. [address] [place] [phone] 03/03/2025 9:00 AM CDT Telemedicine Department of Nutrition and Diabetes Education in [place], [place] [address] [place] [phone] Katelin Alcaraz, MARCUS, C.N.P., D.N.P. 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 Remission (HCC) CBC WITH DIFFERENTIAL, B Routine 01/08/2025 9:59 AM DIETARY COOK Transplant Liver (HCC) Medication Therapy Consulting Services Manager Not Anticoagulant 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 Remission (HCC) GLUCOSE, FASTING, S/P Routine 01/08/2025 9:59 AM DIETARY COOK Transplant Liver (HCC) Medication Therapy Consulting Services Manager Not Anticoagulant 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 Remission (HCC) BILIRUBIN DIRECT, S/P Routine 01/08/2025 9:59 AM DIETARY COOK Transplant Liver (HCC) Medication Therapy Mcc Not Anticoagulant 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 LAB BLOOD ADD -ON Final Result Performing Organization Address City/State/[facility] Co de Phone Number [facility] [address] [place] [address], [facility] OWAT [facility] in [place] [address] [place] [address] * (ABNORMAL) CBC with Differential, Blood (01/08/2025 9:59 AM DIETARY COOK) Pathologist [facility] Hemoglobin 12.0(L) 13.2 - 16.6 g/dL 01/08/2025 10:21 AM DIETARY COOK FB60 Hematocrit 36.7(L) 38.3 - 48.6 % 01/08/2025 10:21 AM DIETARY COOK FB60 Erythrocytes 4.23(L) 4.35 - 5.65 x10(12)/L 01/08/2025 10:21 AM DIETARY COOK FB60 MCV 86.8 78.2 - 97.9 fL 01/08/2025 10:21 AM DIETARY COOK FB60 RBC Distrib Width 15.1(H) 11.8 - 14.5 % 01/08/2025 10:21 AM DIETARY COOK FB60 Platelet Count 166 135 - 317 x10(9)/L 01/08/2025 10:21 AM DIETARY COOK FB60 Leukocytes 4.7 3.4 - 9.6 x10(9)/L 01/08/2025 10:21 AM DIETARY COOK FB60 Neutrophils 2.73 1.56 - 6.45 x10(9)/L 01/08/2025 10:21 AM DIETARY COOK FB60 Lymphocytes 1.20 0.95 - 3.07 x10(9)/L 01/08/2025 10:21 AM DIETARY COOK FB60 Monocytes 0.61 0.26 - 0.81 x10(9)/L 01/08/2025 10:21 AM DIETARY COOK FB60 Eosinophils 0.09 0.03 - 0.48 x10(9)/L 01/08/2025 10:21 AM DIETARY COOK FB60 Basophils <0.04 0.01 - 0.08 x10(9)/L 01/08/2025 10:21 AM DIETARY COOK FB60 Blood (Blood, Venous) 01/08/2025 9:59 AM DIETARY COOK 01/08/2025 9:59 AM DIETARY COOK Deann Zhu APRN, C.N.P., M.S. LAB BLOOD ADD -ON Final Result [facility] [address] [place] [address], [facility] FB60 [facility] in [place] [address] [place] [address] * (ABNORMAL) Tacrolimus, Trough (01/08/2025 9:59 AM DIETARY COOK) Tacrolimus, Trough 2.9(L) 5.0-15.0 (Trough) ng/mL 01/09/2025 10:53 AM DIETARY COOK [facility] Comment: ----ADDITIONAL INFORMATION---- Target steady-state trough concentrations vary depending on the type of transplant, concomitant immunosuppression, clinical/institutional protocols, and time post-transplant. Results should be interpreted in conjunction with this clinical information and any physical signs/symptoms of rejection/toxicity. Testing performed by Liquid Chromatography-Tandem Mass Spectrometry (LC-MS/MS). This test was developed and its performance characteristics determined by [facility] in a manner consistent with CLIA requirements. This test has not been cleared or approved by the U.S. Food and Drug Administration. Blood (Blood, Venous) 01/08/2025 9:59 AM DIETARY COOK 01/09/2025 7:16 AM DIETARY COOK us Deann Zhu APRN C.N.P., M.S. LAB BLOOD NON ADD-ON Final Result Performing Organization Address City/[facility]/ZIP Co de Phone Number [facility] [address] [place] [address] [facility] [address] [place] [address] [place] [address] * (ABNORMAL) Glucose, Fasting (01/08/2025 9:59 AM DIETARY COOK) Glucose, P 170(H) 70 - 100 mg/dL 01/08/2025 1:22 PM DIETARY COOK OWAT Last Intake 0 hr 01/08/2025 12:46 PM DIETARY COOK OWAT Blood (Blood, Venous) 01/08/2025 9:59 AM DIETARY COOK 01/08/2025 12:44 PM DIETARY COOK us Deann Zhu APRN, C.N.P., M.S. LAB BLOOD NON ADD-ON Final Result Performing Organization Address [facility] Co de Phone Number [facility] [address] [address], [place] OWAT [facility] [place] [address] [place] [address] * (ABNORMAL) Comprehensive Metabolic Panel (01/08/2025 9:59 AM DIETARY COOK) Potassium, P 5.2 3.6 - 5.2 mmol/L 01/08/2025 1:37 PM DIETARY COOK OWAT Sodium, P 141 135 - 145 mmol/L 01/08/2025 1:37 PM DIETARY COOK OWAT Chloride, P 103 98 - 107 mmol/L 01/08/2025 1:37 PM DIETARY COOK OWAT Bicarbonate, P 27 22 - 29 mmol/L 01/08/2025 1:37 PM DIETARY COOK OWAT Anion Gap, P 11 7 - 15 01/08/2025 1:37 PM DIETARY COOK OWAT BUN (Blood Urea Nitrogen), P 22 8 - 24 mg/dL 01/08/2025 1:37 PM DIETARY COOK OWAT Creatinine 0.67(L) 0.74 - 1.35 mg/dL 01/08/2025 1:37 PM DIETARY COOK OWAT Estimated GFR (eGFR) >90 >=60 mL/min/BS A 01/08/2025 1:37 PM DIETARY COOK OWAT Comment: Estimated GFR calculated using the 2020 CKD_EPI creatinine equation. Calcium, Total, P 9.3 8.8 - 10.2 mg/dL 01/08/2025 1:37 PM DIETARY COOK OWAT Glucose, P CANCELED mg/dL 01/08/2025 12:46 PM DIETARY COOK OWAT Comment: Duplicate test request. Result canceled by the ancillary. Protein, Total, P 7.1 6.3 - 7.9 g/dL 01/08/2025 1:37 PM DIETARY COOK OWAT Albumin, P 4.3 3.5 - 5.0 g/dL 01/08/2025 1:37 PM DIETARY COOK OWAT Aspartate Aminotransferase (AST), P 23 8 - 48 U/L 01/08/2025 1:37 PM DIETARY COOK OWAT Alkaline Phosphatase, P 68 40 - 129 U/L 01/08/2025 1:37 PM DIETARY COOK OWAT Alanine Aminotransferase (ALT), P 17 7 - 55 U/L 01/08/2025 1:37 PM DIETARY COOK OWAT Bilirubin, Total, P 0.5 0.0 - 1.2 mg/dL 01/08/2025 1:37 PM DIETARY COOK OWAT Blood (Blood, Venous) 01/08/2025 9:59 AM DIETARY COOK 01/08/2025 12:46 PM DIETARY COOK us Deann Zhu APRN, C.N.P., M.S. 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 [address] [phone] PCP - General Internal Medicine 12/05/23 [facility] [place] or [facility] [facility] lab Laboratory Medicine 02/26/23 documented as of this encounter
--- OUTSIDE RECORDS SUMMARY | 2025-02-02 22:51 | XMS_ITS | Encounter Summary ---
Author Organization [facility] Address [address] [place] [address] Care Team Providers Care Export Freight Clerk Name Role Phone MendezKelly Chanel VELAZQUEZ C.N.P., D.N.P. Primary Car e Provider Encounter Details Date Type Department Care Team (Latest Contact Info) Description 01/30/2025 10:24 AM CDT - 01/30/2025 11:59 PM CDT Hospital Encounter Department of Laboratory Medicine in [place], [place] [address] [place] [address] Deann Zhu APRN, C.N.P., M.S. [address] [place] [address] Transplant Liver (HCC); Medication Therapy Fdc Not Anticoagulant; Immunodeficiency Due To Drugs (HCC); Moderate Or Severe Use Disorder (Dependence) Alcohol Remission (HCC) Discharge Disposition: Home or Self Care Social History Tobacco Use Types Packs/Day Years Used Date Smoking Tobacco: Former Cigarettes Q uit: 2007 Passive Smoke Exposure: Never Smokeless Tobacco: Never Alcohol Use Standard Drinks/Week Comments Not Currently 0 (1 standard drink = 0.6 oz pur e alcohol) last 06/23/22 [facility] Utilities Answer Date Recorded In the past 12 months has [employer], gas, oil, or water [employer] threatened to shut off services in your [...] week 02/04/2023 How often do you attend anabaptism or muslim serv ices? 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 1 each 12/12/2023 11:05 AM VICE PRESIDENT NETWORK 12/11/2023 blood-glucose sensor (FreeStyle Apryl 3 Plus Sensor) deviceIndications:D iselates Mellitus Type 2 Hyperglycemia (HCC) 1 each every 15 (fifteen) days. 6 each 3 01/30/2025 4:04 PM CDT 01/28/2025 01/29/20 26 calcium citrate-vitamin D3 (Citracal + D3) 315 mg-5 mcg (200 Unit) per tablet Take 1 tablet by mouth 2 (two) times a day with meals. 200 tablet 3 10/20/2024 10/20/20 25 [id number] ose (Artificial Tears) ophthalmic solution 1 drop 3 (three) times a day as needed for dry eyes. famotidine (Pepcid) 20 mg tablet Take 1 tablet (20 mg total) by mouth 2 (two) times a day as needed for heartburn. 60 tablet 1 11/14/2024 12:18 PM [employer]ICE PRESIDENT [employer]WORK 11/14/2024 fluoride, sodium, (PreviDent) 1.1 % gel [...] daily. 90 tablet 3 10/29/2024 11:46 AM VICE PRESIDENT NETWORK 06/05/2024 gabapentin (NEURONTIN) 300 mg capsule Take 2 capsules (600 mg total) by mouth at bedtime. 04/07/2024 HYDROcodone-acetami nophen ([place]) 7.5-325 mg per tabletIndications:C hronic Pain/Nonacute Pain Take 1 tablet by mouth every 8 (eight) hours as needed for moderate pain or score 4-6 of 10. Indication: Chronic Pain/Nonacute Pain. 60 tablet 11/17/2024 insulin glargine-yfgn (Semglee,insulin glarg-yfgn,Pen) 100 unit/mL (3 mL) penIndications:Diab etes Mellitus Type 2 Hyperglycemia (HCC) Inject 20 Units under the skin every morning. 18 mL 3 02/02/2025 9:47 AM CDT 01/28/2025 insulin lispro (HumaLOG KwikPen Insulin) 100 unit/mL [...] 911. 15 mL 2 11/14/2024 12:18 PM VICE PRESIDENT NETWORK 11/14/2024 ondansetron ODT (Zofran-ODT) 4 mg disintegrating tablet Dissolve 1 tablet (4 mg total) in the mouth every 8 (eight) hours as needed for nausea or vomiting. 30 tablet 3 11/26/2024 3:29 PM VICE PRESIDENT NETWORK 06/05/2024 pen needle, diabetic (BD Ultra-Fine Short Pen Needle) 31 gauge x 5/16 needle Use 3 times a day 300 each 1 11/14/2024 12:18 PM VICE PRESIDENT NETWORK 11/14/2024 rOPINIRole (Requip) 0.25 mg tabletIndications:R estless Leg Syndrome Take 2 tablets (0.5 mg total) by mouth at bedtime as needed (RLS). 30 tablet 11/26/2024 3:29 PM VICE PRESIDENT [employer]WORK 11/13/2024 rosuvastatin (Crestor) 5 mg tablet Take 1 tablet (5 mg total) by mouth daily. 90 tablet 3 12/29/2024 1:25 PM VICE PRESIDENT NETWORK 06/05/2024 sennosides-docusate sodium (Stool Softener-Stimulant Laxat) 8.6-50 mg per tabletIndications:T ransplant Liver (HCC),Medication Therapy Fdc Not Anticoagulant,Drug Induced Constipation Take 1 tablet by mouth 2 (two) times a day. 100 tablet 02/22/2024 5:09 PM CDT 02/22/2024 tacrolimus (Prograf) 1 mg capsuleIndications: Transplant Liver (HCC),Medication Therapy Last Marker Not Anticoagulant Take 2 capsules (2 mg total) by mouth 2 (two) times a day. 01/01 dose change 360 capsule 3 01/01/2025 01/01/20 26 documented as of this encounter Plan of Treatment Upcoming Encounters Date Type Department Care Team (Latest Contact Info) Description 02/03/2025 1:00 PM CDT Appointment Department of Radiation Oncology in [address] [phone] Kiana Oliver M.D. [address] [place] [phone] 02/04/2025 1:00 PM CDT Appointment Department of Radiation Oncology in [address] [phone] Kiana Oliver M.D. 200 [place] [address] 02/05/2025 12:45 PM CDT Appointment Department of Radiation Oncology in [address] [address] Kiana Oliver M.D. 200 [place] [address] 02/05/2025 1:00 PM CDT Appointment Department of Radiation Oncology in [place], [place] [address] [place] [phone] Kiana Oliver M.D. [address] [place] [phone] 02/06/2025 1:00 PM CDT Appointment Department of Radiation Oncology in [address] [phone] Kiana Oliver M.D. [address] [place] [phone] 02/09/2025 1:00 PM CDT Appointment Department of Radiation Oncology in [address] [address] Kiana Oliver M.D. [address] [place] [phone] 02/10/2025 1:00 PM CDT Appointment Department of Radiation Oncology in [address] [phone] Kiana Oliver M.D. [address] [place] [phone] 02/11/2025 1:00 PM CDT Appointment Department of Radiation Oncology in [place], [place] [address] [place] [phone] Kiana Oliver M.D. [address] [place] [phone] 02/12/2025 1:00 PM CDT Appointment Department of Radiation Oncology in [address] [phone] Kiana Oliver M.D. [address] [place] [phone] 02/12/2025 1:15 PM CDT Appointment Department of Radiation Oncology in [place], [place] [address] [place] [phone] Kiana Oliver M.D. [address] [place] [phone] 02/13/2025 1:00 PM CDT Appointment Department of Radiation Oncology in [place], [place] [address] [place] [address] Kiana Oliver M.D. [address] [place] [phone] 02/16/2025 7:15 AM CDT Ancillary Procedure Department of Ophthalmology in [place], [place] [address] [place] [phone] Maida Tim O.D. [address] [place] [phone] 02/16/2025 8:00 AM CDT Comprehensive Visit Department of Ophthalmology in [place], [place] [address] [place] [phone] Desi Rasmussen O.D. [address] [place] [phone] 02/23/2025 8:15 AM CDT Clinical Communication Virtual Review in [place], [place] 200 [place] [address] 02/24/2025 9:40 AM CDT Office Visit Department of Dermatology in [place], [place] [address] [place] [phone] Felipe Stewart M.D. [address] [place] [phone] 02/24/2025 10:00 AM CDT [facility] [place], [place] [address] [place] [phone] Aide eWlch P.A.-C., M.S. [address] [place] [phone] 03/03/2025 9:00 AM CDT Telemedicine Department of Nutrition and Diabetes Education in [place], [place] [address] [place] [phone] Katelin Alcaraz, AUTOMOBILE PAINTER, C.N.P., D.N.P. [address] [place] [phone] Mansi Ross M.S., RDN, LD [address] [place] [phone] Pending Results Name Type Priority Associated Diagnoses Date /Time Testosterone, Total and Free Lab Routine Transplant Liver (HCC) Medication Therapy Last Marker Not Anticoagulant 01/30/2025 10:33 AM CDT Scheduled Orders Name Type Priority Associated Diagnoses Orde r Schedule Testosterone, Total and Free Lab Routine Transplant Liver (HCC) Medication Therapy Fdc Not Anticoagulant Once for 1 Occurrences starting 01/30/2025 until 01/30/2025 documented as of this encounter Procedures Procedure Name Priority Date/Time Associated Diagnosis Comments TACROLIMUS LEVEL, B Routine 01/30/2025 1 0:33 AM CDT Transplant Liver (HCC) Medication Therapy Fdc Not Anticoagulant 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 Remission (HCC) CBC WITH DIFFERENTIAL, B Routine 01/30/2025 10:33 AM CDT Transplant Liver (HCC) Medication Therapy Last Marker Not Anticoagulant 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 Remission (HCC) GLUCOSE, FASTING, S/P Routine 01/30/2025 10:33 AM CDT Transplant Liver (HCC) Medication Therapy Last Marker Not Anticoagulant 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 Remission (HCC) BILIRUBIN DIRECT, S/P Routine 01/30/2025 10:33 AM CDT Transplant Liver (HCC) Medication Therapy Last Marker Not Anticoagulant 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 Remission (HCC) COMPREHENSIVE METABOLIC PANEL, S/P Routine 01/30/2025 10:33 AM CDT Transplant Liver (HCC) Medication Therapy Last Marker Not Anticoagulant 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 Remission (HCC) documented in this encounter Results * Bilirubin, Direct (01/30/2025 10:33 AM CDT) Bilirubin, Direct, P 0.2 0.0 - 0.3 mg/dL 01/30/2025 1:22 PM CDT [facility] Blood (Blood, Venous) 01/30/2025 10:33 AM CDT 01/30/2025 12:40 PM CDT us Deann Zhu APRN, C.N.P., M.S. LAB BLOOD ADD -ON Final Result [facility] [address] [place] [address], [facility] in [place] [address] [place] [address] * (ABNORMAL) CBC with Differential, Blood (01/30/2025 10:33 AM CDT) Hemoglobin 11.3(L) 13.2 - 16.6 g/dL 01/30/2025 [...] 10:33 AM CDT 01/30/2025 10:34 AM CDT Deann Zhu APRN, C.N.P., M.S. LAB BLOOD ADD -ON Final Result [facility] [address] [place] [address], [facility] FB60 [facility] in [place] [address] [place] [address] * (ABNORMAL) Tacrolimus, Trough (01/30/2025 10:33 AM CDT) Tacrolimus, Trough 2.4(L) 5.0-15.0 (Trough) ng/mL 01/31/2025 10:45 AM CDT [facility] Comment: ----ADDITIONAL INFORMATION---- Target steady-state trough concentrations vary depending on the type of transplant, concomitant immunosuppression, clinical/institutional protocols, and time post-transplant. Results should be interpreted in conjunction with this clinical information and any physical signs/symptoms of rejection/toxicity. Testing performed by Liquid Chromatography-Tandem Mass Spectrometry (LC-MS/MS). This test was developed and its performance characteristics determined by [facility] in a manner consistent with CLIA requirements. This test has not been cleared or approved by the U.S. Food and Drug Administration. Blood (Blood, Venous) 01/30/2025 10:33 AM CDT 01/31/2025 7:16 AM CDT Ximena Baltazar APRN.N.P., M.S. LAB BLOOD NON ADD-ON Final Result Performing Organization Address City/[facility]/ZIP Co de Phone Number [facility] [address] [place] [address] [facility] [address] [place] [address] [place] [address] * (ABNORMAL) Glucose, Fasting (01/30/2025 10:33 AM CDT) Glucose, P 149(H) 70 - 100 mg/dL 01/30/2025 1:32 PM CDT [facility] Last Intake 1 hr 01/30/2025 12:40 PM CDT [facility] Blood (Blood, Venous) 01/30/2025 10:33 AM CDT 01/30/2025 12:40 PM CDT us Deann Zhu APRN, C.N.P., M.S. LAB BLOOD NON ADD-ON Final Result Performing Organization Address City/[facility]/ZIP Co de Phone Number [facility] [address] [place] [address], [place] [facility] in [place] [address] [place] [address] * (ABNORMAL) Comprehensive Metabolic Panel (01/30/2025 10:33 AM CDT) Potassium, P 5.6(H) 3.6 - 5.2 mmol/L [...] M.S. LAB BLOOD ADD -ON Final Result [facility] [address] [place] [address], [facility] in [place] [address] [place] [address] documented in this encounter Visit Diagnoses Diagnosis Transplant Liver (HCC) Medication Therapy Fdc Not Anticoagulant 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 Remission (HCC) documented in this encounter Additional Health Concerns Infection Onset Date Last Indicated Resolved Time Protective Environment 11/10/2023 11/10/2023 Assessment Noted Time PHQ-9 Depression Total Score: 19 025 12:23 PM VICE PRESIDENT NETWORK documented as of this encounter Care Teams Export Freight Clerk Relationship Specialty Start Date End Date Kelly Mendez APRN, C.N.P., D.N.P. [address] [place] [phone] PCP - General Internal Medicine 12/05/23 [place] [facility] [place] or [facility] lab Laboratory Medicine 02/26/23 documented as of this encounter
--- OUTSIDE RECORDS SUMMARY | 2025-02-02 22:51 | XMS_ITS | Encounter Summary ---
Author Organization [place] [facility] Address [address] [place] [address]. [place] [address] Care Team Providers Care Ext Js Developer Name Role Phone Tennille Goddard APRN REFRIGERATING ENGINEER Unavailable [phone] Beatris Ty [facility] Unavailable [phone] Dov Alston [facility] Unavailable Unavailable Tennille Goddard APRN REFRIGERATING ENGINEER Primary Care Provider + Dov Alston [facility] Unavailable Unavailable Dov Alston [facility] Unavailable Unavailable Encounter Details Date Type Department Care Team (Late st Contact Info) Description 05/04/2020 [facility] Medical Advice [address], [address] [place] [address] Tennille Goddard APRN REFRIGERATING ENGINEER [address] [place] [address] Social History Tobacco Use Types Packs/Day [...] on file Legal Sex Male 3:09 AM [employer] Gender Identity Not on file Sexual Orientation Not on file 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 No / Unsure 05/04/2020 9:31 AM CDT documented as of this encounter Plan of Treatment Not on file documented as of this encounter Visit Diagnoses Not on filedocumented in this encounter Additional Health Concerns Assessment Noted Time PHQ-9 Depression Total Score: 0 01/07/20 19 6:53 PM [employer] documented as of this encounter Care Teams Ext Js Developer Relationship Specialty Start Date End Date Tennille Goddard APRN REFRIGERATING ENGINEER [address] [place] [address] PCP - General Nurse Practitioner - Family 08/18/19 Tennille Goddard APRN REFRIGERATING ENGINEER [address] [place] [address] Assigned PCP 12/15/18 01/07/22 Beatris Ty [facility] [address] [place] [address] Pharmacist Pharmacist 04/08/19 01/12/21 Dov Alston [facility] [address] [facility] [place] [address] Pharmacist Pharmacist 06/16/19 Dov Alston [facility] [address] [place] [address] Assigned MTM Pharmacist 04/15/22 08/04/22 Dov Alston [facility] [address] [place] [address] Assigned MTM Pharmacist 08/16/22 10/27/22 documented as of this encounter
--- OUTSIDE RECORDS SUMMARY | 2025-02-02 22:51 | XMS_ITS | Encounter Summary ---
Author Organization [facility] Address [address] [place] [address] Care Team Providers Care Division Order Analyst Name Role Phone Kelly Mendez APRN C.N.P., D.N.P. 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 [address] [place] [address] Phone: tel: fax: [facility] Region Referral ID Status Reason Start Date Expiration Date V isits Requested Visits Authorized [id number] Authorized 12/08/2024 03/10/2026 10 10 Reason for Visit * Radiation Therapy (Routine) - Authorized Specialty Diagnoses / Procedures Referred By Junaito ayala Referred To Contact Diagnoses 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 Procedures Management Visit Kiana Oliver M.D. [address] [place] [address] Phone: tel: fax: [facility] Region Referral ID Status Reason Start Date Expiration Date V isits Requested Visits Authorized [id number] Authorized 12/08/2024 03/10/2026 10 10 Encounter Details Date Type Department Care Team (Latest Contact Info) Description 01/29/2025 12:42 PM CDT - 01/29/2025 2:31 PM CDT Hospital Encounter Department of Radiation Oncology in [place], [place] [address] [place] [phone] Kiana Oliver M.D. [address] [place] [address] 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 Social History Tobacco Use Types Packs/Day Years Used Date Smoking Tobacco: Former Cigarettes Q uit: 2008 Passive Smoke Exposure: Never Smokeless Tobacco: Never Alcohol Use Standard Drinks/Week Comments Not Currently 0 (1 standard drink = 0.6 oz pur e alcohol) last 06/23/22 [facility] Utilities Answer Date Recorded In the past 12 months has e [employer], gas, oil, or water [employer] threatened to shut off services in your [...] week 02/04/2023 How often do you attend pentecostalism or muslim serv ices? Patient declined 02/04/2023 Do you belong to any clubs o r organizations such as pentecostalism groups, unions, fraternal or athletic groups, or [...] Answer Date Recorded PHQ-2 Score 6 11/23/2024 [facility] - Occupational [...] AM CDT Legal Sex Male 9:11 PM PHOTOCOPY OPERATOR Gender Identity na 09/07/2021 10:32 AM CDT Sexual Orientation Choose not to disclose 2020 10:32 AM CDT documented as of this encounter Last Filed Vital Signs Vital Sign Reading Time Taken Comments Blood Pressure 118/90 01/29/2025 1:07 PM CDT Pulse 108 01/29/2025 1:07 PM CDT Temperature 36.1 C (97 F) 01/29/2025 1:07 PM CDT Respiratory Rate - - Oxygen Saturation - - Inhaled Oxygen Concentration - - Weight 47.2 kg (104 lb) 01/29/2025 1:07 PM CDT Height - - Body Mass Index 16.98 11/10/2024 1:00 PM PHOTOCOPY OPERATOR documented in this encounter Medications at Time [...] diabetes control. 1 each 12/12/2023 11:05 AM PHOTOCOPY OPERATOR 12/11/2023 blood-glucose sensor (FreeStyle Apryl 3 Plus Sensor) deviceIndications:D iabetes Mellitus Type 2 Hyperglycemia [...] heartburn. 60 tablet 1 11/14/2024 12:18 PM PHOTOCOPY OPERATOR 11/14/2024 fluoride, sodium, (PreviDent) 1.1 % gel [...] daily. 90 tablet 3 10/29/2024 11:46 AM PHOTOCOPY OPERATOR 06/05/2024 gabapentin (NEURONTIN) 300 mg capsule Take 2 capsules (600 mg total) by mouth at bedtime. 04/07/2024 HYDROcodone-acetami nophen (Hampton) 7.5-325 mg per tabletIndications:C hronic Pain/Nonacute Pain [...] 911. 15 mL 2 11/14/2024 12:18 PM PHOTOCOPY OPERATOR 11/14/2024 ondansetron ODT (Zofran-ODT) 4 mg disintegrating tablet Dissolve 1 tablet (4 mg total) in the mouth every 8 (eight) hours as needed for nausea or vomiting. 30 tablet 3 11/26/2024 3:29 PM PHOTOCOPY OPERATOR 06/05/2024 pen needle, diabetic (BD Ultra-Fine Short Pen Needle) 31 gauge x 5/16 needle Use 3 times a day 300 each 1 11/14/2024 12:18 PM PHOTOCOPY OPERATOR 11/14/2024 rOPINIRole (Requip) 0.25 mg tabletIndications:R estless Leg Syndrome Take 2 tablets (0.5 mg total) by mouth at bedtime as needed (RLS). 30 tablet 11/26/2024 3:29 PM PHOTOCOPY OPERATOR 11/13/2024 rosuvastatin (Crestor) 5 mg tablet Take 1 tablet (5 mg total) by mouth daily. 90 tablet 3 12/29/2024 1:25 PM PHOTOCOPY OPERATOR 06/05/2024 sennosides-docusate sodium (Stool Softener-Stimulant Laxat) 8.6-50 mg per tabletIndications:T ransplant Liver (HCC),Medication Therapy Proof Reader Not Anticoagulant,Drug Induced Constipation Take 1 tablet by mouth 2 (two) times a day. 100 tablet 02/22/2024 5:09 PM CDT 02/22/2024 tacrolimus (Prograf) 1 mg capsuleIndications: Transplant Liver (HCC),Medication Therapy Group Home Not Anticoagulant Take 2 capsules (2 mg total) by mouth 2 (two) times a day. 01/01 dose change 360 capsule 3 01/01/2025 01/01/20 26 documented as of this encounter Progress Notes * Veronica Parada P.A.-C., M.S. - 01/29/2025 1:15 PM CDT SUBJECTIVE CHIEF COMPLAINT/REASON FOR VISIT Evaluation for side effects while receiving radiation treatment for 1. 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 SUPERVISED BY: Kiana Oliver M.D. HISTORY OF PRESENT ILLNESS Mr. Kevin Perry is a 64-year-old adult with squamous cell carcinoma who underwent Mohs micrographic surgery on November 24, 2024. He is currently undergoing radiation therapy. Treatment Course: 1xHead Plan ID Fractions Dose / Fraction (cGy) Dose Treated (cGy) Dose Planned (cGy) First Treatment Last Treatment Elapsed Days [id number] 200 [id number] 01/05/2025 01/29/2025 24 Course Summary 01/05/2025 01/29/2025 24 The patient was seen and examined today with Dr. Oliver. The patient reports increased fatigue. He also reports worse appetite. He reports difficulty swallowing spaghetti last night, but he was able to swallow pudding. He had two supplemental shakes yesterday without difficulty. He has not had other difficulty swallowing. He denies pain with swallowing or eating. He has had intermittent nausea, managed with Zofran. He reports clear watering of the lefteye. He denies other left eye drainage. He reports left eye blurry vision that is getting worse. Healso reports feeling a pressure in the lateral aspect of the left eye. He has not taken pain medication specifically for the left eye pressure, but he takes hydrocodone for other pain and reports that it helps. He has skin redness, but no open wounds. They have continued to apply Eucerin, Vanicream, and Aquaphor to the skin. They are bandaging the area at times and leaving it open to air at othertimes. They have stopped doing vinegar soaks. OBJECTIVE BP 118/90 (BP Location: Left arm, Patient Position: Sitting, Cuff Size: Regular) Pulse 108 Temp36.1 ??C (Temporal) Wt 47.2 kg BMI 16.98 kg/m?? PHYSICAL EXAMINATION General: Oriented, in no apparent distress. The patient is in a wheelchair. The patient was initially oriented, but became disengaged by the end of the visit and had his eyes closed. He has difficulty hearing as well. He is here today with his , who answered many questions on his behalf. Skin: Moderate skin erythema of the left forehead down to the cheek, but without desquamation. 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 He appeared more fatigued today. He hashad decreased nutritional intake and has lost 4.5 kg over the past 3 weeks. We discussed transitioning to softer foods that are easier for him to swallow and also increasing his use of supplemental shakes to ensure adequate caloric and protein intake. He reports left eye watering, blurry vision, and pressure. He has an Ophthalmology appointment tomorrow for further evaluation. His skin is lookinggood with moderate erythema, but without desquamation. We discussed discontinuing bandaging the area and continuing to use the lotions/creams to keep the skin moisturized. If he does develop skin breakdown, then we discussed re-initiating dilute vinegar soaks and likely starting dressing changes. Dr. Oliver also met with the patient today, please see her attestation for details. The patient will continue with radiation treatment as planned. Signed by: Veronica Parada P.A.-C., M.SKathrin 01/29/2025 1:36 PM CDT Cosigned by Kiana Oliver M.D. at 01/29/2025 2:31 PM CDT Associated attestation - Kiana Oliver M.D. - 01/29/2025 2:31 PM CDT I saw and evaluated the patient and participated in the guadarrama portions of the service. I reviewed thedocumentation of Ms. Veronica Parada PA-C, MS and agree with the findings and plan. The patient appears well on exam. We will continue with radiation as planned and monitor weekly. When I spoke with Mr. Perry and his , she stated that our weight was wrong. In fact, she states that he has gained weight at home where she checks him very carefully. She thinks our weight was falsely high with clothesand shoes on. We did not weigh him the last to T visit. So we will continue to encourage him to use supplements. After they left I was able to reach out to Dr. Daniels who he is seeing tomorrow for his eye. She is aware of our concerns not only for help with eye side effects during radiation but then also help with the terminal make up operator effects of radiation on the lacrimal gland. Kiana Oliver M.D., 01/29/2025 documented in this encounter Plan of Treatment Upcoming Encounters Date Type Department Care Team (Latest Contact Info) Description 02/03/2025 1:00 PM CDT Appointment Department of Radiation Oncology in [address] [phone] Kiana Oliver M.D. [address] [place] [phone] 02/04/2025 1:00 PM CDT Appointment Department of Radiation Oncology in [address] [address] Kiana Oliver M.D. [address] [place] [phone] 02/05/2025 12:45 PM CDT Appointment Department of Radiation Oncology in [address] [address] Kiana Oliver M.D. [address] [place] [phone] 02/05/2025 1:00 PM CDT Appointment Department of Radiation Oncology in [place], [place] [address] [place] [address] Kiana Oliver M.D. [address] [place] [phone] 02/06/2025 1:00 PM CDT Appointment Department of Radiation Oncology in [place], [place] [address] [place] [phone] Kiana Oliver M.D. [address] [place] [phone] 02/09/2025 1:00 PM CDT Appointment Department of Radiation Oncology in [place], [place] [address] [place] [address] Kiana Oliver M.D. [address] [place] [phone] 02/10/2025 1:00 PM CDT Appointment Department of Radiation Oncology in [place], [place] [address] [place] [phone] Kiana Oliver M.D. [address] [place] [phone] 02/11/2025 1:00 PM CDT Appointment Department of Radiation Oncology in [place], [place] [address] [place] [phone] Kiana Oliver M.D. [address] [place] [phone] 02/12/2025 1:00 PM CDT Appointment Department of Radiation Oncology in [address] [address] Kiana Oliver M.D. [address] [place] [phone] 02/12/2025 1:15 PM CDT Appointment Department of Radiation Oncology in [address] [address] Kiana Oliver M.D. [address] [place] [phone] 02/13/2025 1:00 PM CDT Appointment Department of Radiation Oncology in [address] [phone] Kiana Oliver M.D. [address] [place] [phone] 02/16/2025 7:15 AM CDT Ancillary Procedure Department of Ophthalmology in [place], [place] [address] [place] [phone] Maida Tim O.D. [address] [place] [phone] 02/16/2025 8:00 AM CDT Comprehensive Visit Department of Ophthalmology in [place], [place] [address] [place] [phone] Desi Rasmussen O.D. [address] [place] [phone] 02/23/2025 8:15 AM CDT Clinical Communication Virtual Review in [place], [place] [address] [place] [address] 02/24/2025 9:40 AM CDT Office Visit Department of Dermatology in [place], [place] [address] [place] [phone] Felipe Stewart M.D. [address] [place] [address] 02/24/2025 10:00 AM CDT Office Visit Jeyson Kevin [facility] for Transplantation and Clinical Regeneration in [place], [place] [address] [place] [address] Aide Welch P.A.-C., M.S. [address] [place] [phone] 03/03/2025 9:00 AM CDT Telemedicine Department of Nutrition and Diabetes Education in [place], [place] [address] [place] [address] Katelin Alcaraz APRN, C.N.P., D.N.P. [address] [place] [phone] Mansi Ross M.S., RDN, LD [address] [place] [phone] Scheduled Orders Name Type Priority Associated Diagnoses Orde r Schedule Management Visit Radiation Oncology Routine 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 Once for 1 Occurrences starting 01/29/2025 until 01/29/2025 documented as of this encounter Visit Diagnoses Diagnosis 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 documented in this encounter Additional Health Concerns Infection Onset Date Last Indicated Resolved Time Protective Environment 11/10/2023 11/10/2023 Assessment Noted Time PHQ-9 Depression Total Score: 19 025 12:23 PM PHOTOCOPY OPERATOR documented as of this encounter Care Teams Division Order Analyst Relationship Specialty Start Date End Date Kelly Mendez APRN, C.N.P., D.N.P. [address] [place] [address] PCP - General Internal Medicine 12/05/23 [facility] Rhea Little [facility] lab Laboratory Medicine 02/26/23 documented as of this encounter
--- OUTSIDE RECORDS SUMMARY | 2025-02-02 22:51 | XMS_ITS | Encounter Summary ---
Author Organization [facility] Address [address] [place] [address] Care Team Providers Care Line Haul Truck Driver Name Role Phone Kelly Mendez APRN C.N.P., D.N.P. Primary Car e Provider Reason for Visit * Radiation Therapy (Routine) - Authorized Specialty Diagnoses / Procedures Referred By Juanito ayala Referred To Contact Diagnoses 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 Procedures Prior Auth Rad [place]x [place] IMRT COMPLEX [place] GUIDANCE FOR LOC RAD [place] IMRT RADIOTHERAPY PLAN IMRT Kiana Oliver M.D. [address] [place] [address] Phone: tel: fax: [facility] [place] [address] [place] [phone] Referral ID Status Reason Start Date Expiration Date V isits Requested Visits Authorized [id number] Authorized 12/22/2024 03/10/2026 15 30 Encounter Details Date Type Department Care Team (Late st Contact Info) Description 01/27/2025 12:36 PM CDT Hospital Encounter Department of Radiation Oncology in [place], [place] [address] [place] [phone] Kiana Oliver M.D. [address] [place] [phone] Social History Tobacco Use Types Packs/Day Years Used Date Smoking Tobacco: Former Cigarettes Q uit: 2008 Passive Smoke Exposure: Never Smokeless Tobacco: Never Alcohol Use Standard Drinks/Week Comments Not Currently 0 (1 standard drink = 0.6 oz pur e alcohol) last 06/23/22 [facility] Utilities Answer Date Recorded In the [...] How often do you attend rastafari or cheondoism serv ices? Patient declined 02/04/2023 [...] Answer Date Recorded PHQ-2 Score 6 11/23/2024 [facility]at ional Health [...] AM CDT Legal Sex Male 9:11 PM DE ICER ELEMENT WINDER Gender Identity na 09/07/2021 10:32 AM CDT Sexual Orientation Choose not to disclose 2020 10:32 AM CDT documented as of this encounter Plan of Treatment Upcoming Encounters Date Type Department Care Team (Latest Contact Info) Description 02/03/2025 1:00 PM CDT Appointment Department of Radiation Oncology in [address] [phone] Kiana Oliver M.D. [address] [place] [phone] 02/04/2025 1:00 PM CDT Appointment Department of Radiation Oncology in [address] [phone] Kiana Olievr M.D. [address] [place] [phone] 02/05/2025 12:45 PM CDT Appointment Department of Radiation Oncology in [address] [address] Kiana Oliver M.D. [address] [place] [phone] 02/05/2025 1:00 PM CDT Appointment Department of Radiation Oncology in [address] [address] Kiana Oliver M.D. [address] [place] [phone] 02/06/2025 1:00 PM CDT Appointment Department of Radiation Oncology in [address] [address] Kiana Oliver M.D. [address] [place] [phone] 02/09/2025 1:00 PM CDT Appointment Department of Radiation Oncology in [place], [place] [address] [place] [phone] Kiana Oliver M.D. [address] [place] [address] 02/10/2025 1:00 PM CDT Appointment Department of Radiation Oncology in [place], [place] [address] [place] [phone] Kiana Oliver M.D. [address] [place] [address] 02/11/2025 1:00 PM CDT Appointment Department of Radiation Oncology in [address] [phone] Kiana Oliver M.D. [address] [place] [address] 02/12/2025 1:00 PM CDT Appointment Department of Radiation Oncology in [address] [phone] Kiana Oliver M.D. [address] [place] [address] 02/12/2025 1:15 PM CDT Appointment Department of Radiation Oncology in [address] [address] Kiana Oliver M.D. [address] [place] [address] 02/13/2025 1:00 PM CDT Appointment Department of Radiation Oncology in [address] [address] Kiana Oliver M.D. [address] [place] [phone] 02/16/2025 7:15 AM CDT Ancillary Procedure Department of Ophthalmology in [place], [place] [address] [place] [phone] Maida Tim O.D. [address] [place] [phone] 02/16/2025 8:00 AM CDT Comprehensive Visit Department of Ophthalmology in [place], [place] [address] [place] [phone] Desi Rasmussen O.D. [address] [place] [phone] 02/23/2025 8:15 AM CDT Clinical Communication Virtual Review in [place], [place] [address] [place] [address] 02/24/2025 9:40 AM CDT Office Visit Department of Dermatology in [address] [address] Felipe Stewart M.D. [address] [place] [phone] 02/24/2025 10:00 AM CDT Office Visit Jeyson milan [facility] for Transplantation and Clinical Regeneration in [place], [place] [address] [place] [phone] Aide Welch P.A.-C., M.S. [address] [place] [phone] 03/03/2025 9:00 AM CDT Telemedicine Department of Nutrition and Diabetes Education in [address] [phone] Katelin Alcaraz, MARCUS, C.N.P., D.N.P. [address] [place] [phone] Mansi Ross M.S., RDN, LD [address] [place] [address] documented as of this encounter Visit Diagnoses Not on filedocumented in this encounter Additional Health Concerns Infection Onset Date Last Indicated Resolved Time Protective Environment 11/10/2023 11/10/2023 Assessment Noted Time PHQ-9 Depression Total Score: 19 025 12:23 PM DE ICER ELEMENT WINDER documented as of this encounter Care Teams Line Haul Truck Driver Relationship Specialty Start Date End Date Kelly Mendez APRN, C.N.P., D.N.P. [address] [place] [phone] PCP - General Internal Medicine 12/05/23 [facility] [place] or Anabel [facility] lab Laboratory Medicine 02/26/23 documented as of this encounter
--- OUTSIDE RECORDS SUMMARY | 2025-02-02 22:51 | XMS_ITS | Encounter Summary ---
Author Organization [facility] Address [address] [place] [address] Care Team Providers Care Supervisor Felling Bucking Name Role Phone Tennille Goddard APRN BAND AID MACHINE OPERATOR Unavailable [phone] Beatris Ty [facility] Unavailable [phone] Dov Alston [facility] Unavailable Unavailable Tennille Goddard APRN BAND AID MACHINE OPERATOR Primary Care Provider + Dov Alston [facility] Unavailable Unavailable Dov Alston [facility] Unavailable Unavailable Encounter Details Date Type Department Care Team (Late st Contact Info) Description 05/24/2020 [facility] Medical Advice [address] [address] Dov Alston [facility] [id number] [place] [phone] Social History Tobacco Use Types Packs/Day Years [...] on file Legal Sex Male 3:09 AM GREENS CUTTER Gender Identity Not on file Sexual Orientation [...] Total Score: 0 01/07/20 19 6:53 PM GREENS CUTTER documented as of this encounter Care Teams Supervisor Felling Bucking Relationship Specialty Start Date End Date Tennille Goddard APRN BAND AID MACHINE OPERATOR [address] [facility] [place] [address] PCP - General Nurse Practitioner - Family 08/18/19 Tennille Goddard APRN BAND AID MACHINE OPERATOR [address] [place] [address] Assigned PCP 12/15/18 01/07/22 Beatris Ty [facility] [address] [place] [address] Pharmacist Pharmacist 04/08/19 01/12/21 [facility] [address] [facility] [place] [address] Pharmacist Pharmacist 06/16/19 [facility] [address] [place] [address] Assigned MTM Pharmacist 04/15/22 08/04/22 [facility] [address] [place] [address] Assigned MTM Pharmacist 08/16/22 10/27/22 documented as of this encounter
--- OUTSIDE RECORDS SUMMARY | 2025-02-02 22:51 | XMS_ITS | Encounter Summary ---
Author Organization [facility] Address [address] [place] [address] Care Team Providers Care Ceramic Design Engineer Name Role Phone Kelly Mendez APRN C.N.P., D.N.P. 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 200 [place] [address] Phone: tel: fax: [facility] Radiation Oncology at [place] [address] [place] [phone] Referral ID Status Reason Start Date Expiration Date V isits Requested Visits Authorized [id number] Authorized 12/22/2024 03/10/2026 15 30 Encounter Details Date Type Department Care Team (Late st Contact Info) Description 01/08/2025 12:32 PM CHIP MACHINE OPERATOR Hospital Encounter Department of Radiation Oncology in [address] [phone] Kiana Oliver M.D. 200 [place] [phone] Social History Tobacco Use Types Packs/Day Years Used Date Smoking Tobacco: Former Cigarettes Q uit: 2008 Passive Smoke Exposure: Never Smokeless Tobacco: Never Alcohol Use Standard Drinks/Week Comments Not Currently 0 (1 standard drink = 0.6 oz pur e alcohol) last 06/23/22 [facility] Utilities Answer Date Recorded In the past [...] week 02/04/2023 How often do you attend synagogue or pentecostal serv ices? 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 [address] [place] [phone] 02/04/2025 1:00 PM CDT Appointment Department of Radiation Oncology in [address] [address] Kiana Oliver M.D. [address] [place] [phone] 02/05/2025 12:45 PM CDT Appointment Department of Radiation Oncology in [address] [address] Kiana Oliver M.D. [address] [place] [phone] 02/05/2025 1:00 PM CDT Appointment Department of Radiation Oncology in [address] [address] Kiana Oliver M.D. [address] [place] [phone] 02/06/2025 1:00 PM CDT Appointment Department of Radiation Oncology in [address] [address] Kiana Oliver M.D. [address] [place] [address] 02/09/2025 1:00 PM CDT Appointment Department of Radiation Oncology in [place], [place] [address] [place] [address] Kiana Oliver M.D. [address] [place] [phone] 02/10/2025 1:00 PM CDT Appointment Department of Radiation Oncology in [place], [place] [address] [place] [phone] Kiana Oliver M.D. [address] [place] [phone] 02/11/2025 1:00 PM CDT Appointment Department of Radiation Oncology in [address] [address] Kiana Oliver M.D. [address] [place] [phone] 02/12/2025 1:00 PM CDT Appointment Department of Radiation Oncology in [address] [address] Kiana Oliver M.D. [address] [place] [phone] 02/12/2025 1:15 PM CDT Appointment Department of Radiation Oncology in [address] [address] Kiana Oliver M.D. [address] [place] [phone] 02/13/2025 1:00 PM CDT Appointment Department of Radiation Oncology in [address] [address] Kiana Oliver M.D. [address] [place] [address] 02/16/2025 7:15 AM CDT Ancillary Procedure Department of Ophthalmology in [place], [place] [address] [place] [phone] Maida Tim O.D. [address] [place] [phone] 02/16/2025 8:00 AM CDT Comprehensive Visit Department of Ophthalmology in [place], [place] [address] [place] [phone] Desi Rasmussen O.D. [address] [place] [phone] 02/23/2025 8:15 AM CDT Clinical Communication Virtual Review in [place], [place] 200 [place] [address] 02/24/2025 9:40 AM CDT Office Visit Department of Dermatology in [address] [address] Felipe Stewart M.D. [address] [place] [phone] 02/24/2025 10:00 AM CDT Office Visit Jeyson milan [facility] for Transplantation and Clinical Regeneration in [place], [place] [address] [place] [phone] Aide Welch P.A.Willie., M.S. [address] [place] [phone] 03/03/2025 9:00 AM CDT Telemedicine Department of Nutrition and Diabetes Education in [address] [phone] Katelin Alcaraz, MARCUS, C.N.P., D.N.P. [address] [place] [phone] Mansi Ross M.S., RDN, LD [address] [place] [address] documented as of this encounter Visit Diagnoses Not on filedocumented in this encounter Additional Health Concerns Infection Onset Date Last Indicated Resolved Time Protective Environment 11/10/2023 11/10/2023 Assessment Noted Time PHQ-9 Depression Total Score: 19 025 12:23 PM CHIP MACHINE OPERATOR documented as of this encounter Care Teams Ceramic Design Engineer Relationship Specialty Start Date End Date Kelly Mendez APRN, C.N.P., D.N.P. [address] [place] [phone] PCP - General Internal Medicine 12/05/23 [facility] [place] or Anabel [facility] lab Laboratory Medicine 02/26/23 documented as of this encounter
--- OUTSIDE RECORDS SUMMARY | 2025-02-02 22:51 | XMS_ITS | Encounter Summary ---
Author Organization [facility] Address [address] [place] [address] Care Team Providers Care Accounting Lecturer Name Role Phone Kelly Mendez APRN C.N.P., D.N.P. Primary Car e Provider Reason for Visit * Radiation Therapy (Routine) - Authorized Specialty Diagnoses / Procedures Referred By Juanito ayala Referred To Contact Diagnoses 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 Procedures Prior Auth Rad Tx [place] IMRT [place] GUIDANCE FOR [place] RAD [place] IMRT RADIOTHERAPY PLAN IMRT Kiana Oliver M.D. 200 [place] [address] Phone: tel: fax: T [facility] [place] [address] [place] [phone] Referral ID Status Reason Start Date Expiration Date V isits Requested Visits Authorized [id number] Authorized 12/22/2024 03/10/2026 15 30 Encounter Details Date Type Department Care Team (Late st Contact Info) Description 01/29/2025 12:42 PM CDT Hospital Encounter Department of Radiation Oncology in [address] [phone] Kiana Oliver M.D. 200 [place] [phone] Social History Tobacco Use Types Packs/Day Years Used Date Smoking Tobacco: Former Cigarettes Q uit: 2008 Passive Smoke Exposure: Never Smokeless Tobacco: Never Alcohol Use Standard Drinks/Week Comments Not Currently 0 (1 standard drink = 0.6 oz pur e alcohol) last 06/23/22 [facility] Utilities Answer Date Recorded In [...] week 02/04/2023 How often do you attend religious or hoahaoism serv ices? 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 [address] [place] [phone] 02/04/2025 1:00 PM CDT Appointment Department of Radiation Oncology in [address] [address] Kiana Oliver M.D. [address] [place] [phone] 02/05/2025 12:45 PM CDT Appointment Department of Radiation Oncology in [address] [address] Kiana Oliver M.D. [address] [place] [phone] 02/05/2025 1:00 PM CDT Appointment Department of Radiation Oncology in [address] [address] Kiana Oliver M.D. [address] [place] [phone] 02/06/2025 1:00 PM CDT Appointment Department of Radiation Oncology in [address] [address] Kiana Oliver M.D. [address] [place] [phone] 02/09/2025 1:00 PM CDT Appointment Department of Radiation Oncology in [place], [place] [address] [place] [phone] Kiana Oliver M.D. [address] [place] [address] 02/10/2025 1:00 PM CDT Appointment Department of Radiation Oncology in [place], [place] [address] [place] [phone] Kiana Oliver M.D. [address] [place] [address] 02/11/2025 1:00 PM CDT Appointment Department of Radiation Oncology in [address] [address] Kiana Oliver M.D. [address] [place] [address] 02/12/2025 1:00 PM CDT Appointment Department of Radiation Oncology in [address] [address] Kiana Oliver M.D. 200 [place] [address] 02/12/2025 1:15 PM CDT Appointment Department of Radiation Oncology in [address] [address] Kiana Oliver M.D. 200 [place] [address] 02/13/2025 1:00 PM CDT Appointment Department of Radiation Oncology in [address] [address] Kiana Oliver M.D. [address] [place] [phone] 02/16/2025 7:15 AM CDT Ancillary Procedure Department of Ophthalmology in [place], [place] [address] [place] [phone] Maida Tim O.D. [address] [place] [phone] 02/16/2025 8:00 AM CDT Comprehensive Visit Department of Ophthalmology in [place], [place] [address] [place] [phone] Desi Rasmussen O.D. [address] [place] [phone] 02/23/2025 8:15 AM CDT Clinical Communication Virtual Review in [place], [place] 200 [place] [address] 02/24/2025 9:40 AM CDT Office Visit Department of Dermatology in [address] [address] Felipe Stewart M.D. [address] [place] [phone] 02/24/2025 10:00 AM CDT Office Visit Jeyson milan [facility] for Transplantation and Clinical Regeneration in [place], [place] [address] [place] [phone] Aide Welch P.A.-C., M.S. [address] [place] [phone] 03/03/2025 9:00 AM CDT Telemedicine Department of Nutrition and Diabetes Education in [address] [address] Katelin Alcaraz, MARCUS, C.N.P., D.N.P. [address] [place] [phone] Mansi Ross M.S., RDN, LD [address] [place] [address] documented as of this encounter Visit Diagnoses Not on filedocumented in this encounter Additional Health Concerns Infection Onset Date Last Indicated Resolved Time Protective Environment 11/10/2023 11/10/2023 Assessment Noted Time PHQ-9 Depression Total Score: 19 025 12:23 PM COMPOUND MACHINE OPERATOR documented as of this encounter Care Teams Accounting Lecturer Relationship Specialty Start Date End Date Kelly Mendez APRN, C.N.P., D.N.P. [address] [place] [phone] PCP - General Internal Medicine 12/05/23 [facility] [place] or [facility] lab Laboratory Medicine 02/26/23 documented as of this encounter
--- OUTSIDE RECORDS SUMMARY | 2025-02-02 22:51 | XMS_ITS | Encounter Summary ---
Author Organization [facility] Address [address] [place] [address] Care Team Providers Care Box Office Agent Name Role Phone Kelly Mendez APRN C.N.P., D.N.P. Primary Car e Provider Reason for Referral * Outpatient (Routine) - Authorized Specialty Diagnoses / Procedures Referred By Juanito ayala Referred To Contact Ophthalmology Diagnoses Dry Eye Syndrome Left Dry Eye Syndrome Bilateral Dysfunction Meibomian Gland Right Dysfunction Meibomian Gland Left Maida Tim O.D. [address] [place] [address] Phone: tel: fax: [facility] Referral ID Status Reason Start Date Expiration Date V isits Requested Visits Authorized [id number] Authorized 01/30/2025 08/01/2026 1 1 Reason for Visit * Reason Comments Diabetic Eye Exam * Outpatient (Routine) - Closed Specialty Diagnoses / Procedures Referred By Juanito ayala Referred To Contact Ophthalmology Diagnoses Dry Eye Syndrome Left Kiana Oliver M.D. [address] [place] [address] Phone: tel: fax: [facility] Referral ID Status Reason Start Date Expiration Date Visits Re quested Visits Authorized [id number] Closed 01/15/2025 07/17/2026 1 1 Encounter Details Date Type Department Care Team (Latest Contact Info) Description 01/30/2025 3:20 PM CDT Comprehensive Visit Department of Ophthalmology in [place], [place] [address] [place] [phone] Kiana Oliver M.D. [address] [place] [phone] Maida Tim O.D. [address] [place] [phone] Dry Eye Syndrome Bilateral (Primary Dx); Dysfunction Meibomian Gland Right; Dysfunction Meibomian Gland Left; Diabetes Mellitus Type 2 Hyperglycemia (HCC); Refraction Disorder Social History Tobacco Use Types Packs/Day Years Used Date Smoking Tobacco: Former Cigarettes Q uit: 2008 Passive Smoke Exposure: Never Smokeless Tobacco: Never Alcohol Use Standard Drinks/Week Comments Not Currently 0 (1 standard drink = 0.6 oz pur e alcohol) last 06/23/22 [facility] Utilities Answer Date Recorded In the past 12 months has [employer], gas, oil, or water [employer] threatened to shut off services in your [...] How often do you attend scientologist or hoahaoism serv ices? 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 Plan: Recommended regular and prophylactic use of non-preserved artificial tears at least 4-6 timesdaily. Also encouraged patient to consciously blink whenever he thinks of it. 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 Referred him to Dr. Rasmussen for ongoing care. #4 Diabetes Mellitus Type 2 Hyperglycemia (HCC) No retinopathy noted. Plan: Monitor annually. Stressed importance of systemic control. #5 Refraction Disorder Plan: Spectacle prescription given. documented in this encounter Plan of Treatment Upcoming Encounters Date Type Department Care Team (Latest Contact Info) Description 02/03/2025 1:00 PM CDT Appointment Department of Radiation Oncology in [address] [address] Kiana Oliver M.D. [address] [place] [phone] 02/04/2025 1:00 PM CDT Appointment Department of Radiation Oncology in [place], [place] [address] [place] [phone] Kiana Oliver M.D. [address] [place] [phone] 02/05/2025 12:45 PM CDT Appointment Department of Radiation Oncology in [address] [address] Kiana Oliver M.D. [address] [place] [address] 02/05/2025 1:00 PM CDT Appointment Department of Radiation Oncology in [place], [place] [address] [place] [phone] Kiana Oliver M.D. [address] [place] [phone] 02/06/2025 1:00 PM CDT Appointment Department of Radiation Oncology in [place], [place] [address] [place] [phone] Kiana Oliver M.D. [address] [place] [phone] 02/09/2025 1:00 PM CDT Appointment Department of Radiation Oncology in [place], [place] [address] [place] [address] Kiana Oliver M.D. [address] [place] [phone] 02/10/2025 1:00 PM CDT Appointment Department of Radiation Oncology in [place], [place] [address] [place] [address] Kiana Oliver M.D. [address] [place] [phone] 02/11/2025 1:00 PM CDT Appointment Department of Radiation Oncology in [place], [place] [address] [place] [phone] Kiana Oliver M.D. 200 [place] [address] 02/12/2025 1:00 PM CDT Appointment Department of Radiation Oncology in [address] [address] Kiana Oliver M.D. 200 [place] [address] 02/12/2025 1:15 PM CDT Appointment Department of Radiation Oncology in [place], [place] [address] [place] [address] Kiana Oliver M.D. [address] [place] [address] 02/13/2025 1:00 PM CDT Appointment Department of Radiation Oncology in [place], [place] [address] [place] [address] Kiana Oliver M.D. [address] [place] [phone] 02/16/2025 7:15 AM CDT Ancillary Procedure Department of Ophthalmology in [place], [place] [address] [place] [address] Maida Tim O.D. [address] [place] [phone] 02/16/2025 8:00 AM CDT Comprehensive Visit Department of Ophthalmology in [place], [place] [address] [place] [phone] Desi Rasmussen O.D. [address] [place] [phone] 02/23/2025 8:15 AM CDT Clinical Communication Virtual Review in [place], [place] 200 [place] [address] 02/24/2025 9:40 AM CDT Office Visit Department of Dermatology in [place], [place] [address] [place] [phone] Felipe Stewart M.D. [address] [place] [phone] 02/24/2025 10:00 AM CDT Office Visit Jeyson Brown [facility] for Trans[facility] and Clinical Regeneration in [place], [place] [address] [place] [phone] Aide Welch P.A.-Ximena., M.S. [address] [place] [phone] 03/03/2025 9:00 AM CDT Telemedicine Department of Nutrition and Diabetes Education in [place], [place] [address] [place] [phone] Katelin Alcaraz, FACULTY SUPPORT COORDINATOR, C.N.P., D.N.P. [address] [place] [phone] Mansi Ross M.S., RDN, LD [address] [place] [phone] Scheduled Referrals Name Type Priority Associated Diagnoses Order Schedule Ophthalmology - Dry eye consult (clinic) Outpatient Referral Routine Refraction Disorder Dry Eye Syndrome Bilateral Dysfunction Meibomian Gland Right Dysfunction Meibomian Gland Left Expected: 01/30/2025 (Approximate), Expires: 05/02/2026 documented as of this encounter Visit Diagnoses Diagnosis Dry Eye Syndrome Bilateral- Primary Dysfunction Meibomian Gland Right Dysfunction Meibomian Gland Left Diabetes Mellitus Type 2 Hyperglycemia (HCC) Refraction Disorder documented in this encounter Additional Health Concerns Infection Onset Date Last Indicated Resolved Time Protective Environment 11/10/2023 11/10/2023 Assessment Noted Time PHQ-9 Depression Total Score: 19 025 12:23 PM FRUIT TRIMMER documented as of this encounter Care Teams Box Office Agent Relationship Specialty Start Date End Date Kelly Mendez APRN, C.N.P., D.N.P. [address] [place] [address] PCP - General Internal Medicine 12/05/23 [facility] [place] or [facility] lab Laboratory Medicine 02/26/23 documented as of this encounter
--- OUTSIDE RECORDS SUMMARY | 2025-02-02 22:51 | XMS_ITS | Encounter Summary ---
Author Organization [facility] Address [address] [place] [address] Care Team Providers Care Health And Fitness Professor Name Role Phone AndreaKelly Chanel VELAZQUEZ C.N.P., D.N.P. Primary Car e Provider Reason for Visit * Reason Onset Date Comments Labs Only 01/09/2025 Encounter Details Date Type Department Care Team (Latest Contact Info) Description 01/09/2025 Clinical Communication Jeyson Brown [facility] in [place], [place] [address] [place] [address] Christy Abad R.N., C.C.T.C. [address] [place] [address] Labs Only Social History Tobacco Use Types Packs/Day Years Used Date Smoking Tobacco: Former Cigarettes Q uit: 2008 Passive Smoke Exposure: Never Smokeless Tobacco: Never Alcohol Use Standard Drinks/Week Comments Not Currently 0 (1 standard drink = 0.6 oz pur e alcohol) last 06/23/22 [facility] Utilities Answer Date Recorded In the past 12 months has e electric, gas, oil, or water [employer] threatened to shut off services in your [...] often do you attend latter day or episcopalian serv ices? 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 - 01/09/2025 11:09 AM CST Please review labs below. 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 Severe malnutrition. G tube placed in October. Did not tolerate tube feeds due to nausea. 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 Will undergo radiation starting 01/05. Video Visit with you on 01/19 Current Medications & Recent Dose Changes: Tacrolimus 2 mg BID (decreased from 4 mg BID on 01/01) Labs: Recent Labs 01/08/25 0959 12/26/24 1005 12/08/24 0935 11/27/24 0944 11/14/24 0503 11/13/24 0507 TACROLIMUS 2.9 L 6.0 5.1 3.4 L 5.0 4.7 L Recent Labs 01/08/25 0959 12/26/24 1006 12/26/24 1005 12/08/24 0935 11/27/24 0944 11/14/24 0503 11/13/24 1627 11/13/24 0507 11/12/24 0537 11/10/24200911/10/24 0827 10/27/24 0755 10/20/24 0704 HGB 12.0 L -- 12.0 L 11.2 L < > 10.2 L -- 10.3 L 10.6 L < > 11.3 L < > 11.3 L HCT 36.7 L -- 37.2 L 34.9 L < > 31.4 L -- 32.0 L 32.3 L < > 34.5 L < > 36.0 L WBC 4.7 -- 4.4 4.6 < > 5.6 -- 7.5 5.1 < > 3.7 < > 4.9 NEUTROPHILS 2.73 -- 2.55 2.76 < > -- -- -- -- -- -- < > 3.21 PLT 166 -- 159 148 < > 169 -- 158 141 < > 167 < > 266 NA 141 -- 140 143 < > 135 -- 135 136 < > 139 < > 140 KPLASMA 5.2 -- 4.3 4.9 < > -- -- -- -- -- -- < > -- KSERUM -- -- -- -- -- 4.7 5.8 H 5.8 H 4.7 < > 4.3 -- 5.7 H MG -- -- -- -- -- 1.9 -- 2.1 2.4 H < > -- < > 2.3 GLUCOSE CANCELED 170 H 131 H CANCELED CANCELED 193 H < > 338 H -- 94 127 < > 256 H < > CANCELED 154 H HGBA1C -- -- -- -- -- -- -- -- -- -- -- -- 6.8 H BUN 22 -- 28 H 23 < > 29 H -- 29 H 27 H < > 30 H < > 36 H CREATININE 0.67 L -- 0.89 0.64 L < > 0.84 -- 0.79 0.81 < > 0.94 < > 1.06 EGFR >90 -- >90 >90 < > >90 -- >90 >90 < > >90 < > 78 ALKPHOS 68 -- 66 66 < > 66 -- 57 -- < > 63 < > 94 AST 23 -- 22 20 < > 14 -- 16 -- < > 10 < > 15 ALT 17 -- 11 15 < > <7 L -- <7 L -- < > <7 L < > <7 L BILITOT 0.5 -- 0.5 0.4 < > 0.4 -- 0.5 -- < > 0.5 < > 0.5 BILIDIR 0.2 -- 0.2 0.1 < > <0.2 -- <0.2 -- -- <0.2 < > <0.2 PT -- -- -- -- -- -- -- -- -- -- 11.4 -- 10.9 INR -- -- -- -- -- -- -- -- -- -- 1.0 -- 1.0 ALBUMIN 4.3 -- 4.3 4.0 < > 3.7 -- 3.3 L -- < > 3.7 < > 4.1 < > = values in this interval not displayed. Immunosuppression Goal Range: 2-3 due to skin cancer Current Lab Frequency: monthly Please advise on any changes or recommendations. Thanks, Christy Abad R.N., C.C.T.C. *All labs are now found in [facility] - Flowsheets. For further review of labs, please review thereor under Synopsis* ETING ADMIN documented in this encounter Plan of Treatment Upcoming Encounters Date Type Department Care Team (Latest Contact Info) Description 02/03/2025 1:00 PM CDT Appointment Department of Radiation Oncology in [address] [address] Kiana Oliver M.D. [address] [place] [phone] 02/04/2025 1:00 PM CDT Appointment Department of Radiation Oncology in [address] [address] Kiana Oliver M.D. [address] [place] [phone] 02/05/2025 12:45 PM CDT Appointment Department of Radiation Oncology in [address] [address] Kiana Oliver M.D. [address] [place] [phone] 02/05/2025 1:00 PM CDT Appointment Department of Radiation Oncology in [address] [address] Kiana Oliver M.D. [address] [place] [phone] 02/06/2025 1:00 PM CDT Appointment Department of Radiation Oncology in [address] [address] Kiana Oliver M.D. [address] [place] [phone] 02/09/2025 1:00 PM CDT Appointment Department of Radiation Oncology in [address] [address] Kiana Oliver M.D. [address] [place] [phone] 02/10/2025 1:00 PM CDT Appointment Department of Radiation Oncology in [address] [address] Kiana Oliver M.D. [address] [place] [phone] 02/11/2025 1:00 PM CDT Appointment Department of Radiation Oncology in [address] [address] Kiana Oliver M.D. 200 [place] [address] 02/12/2025 1:00 PM CDT Appointment Department of Radiation Oncology in [address] [address] Kiana Oliver M.D. [address] [place] [phone] 02/12/2025 1:15 PM CDT Appointment Department of Radiation Oncology in [place], [place] [address] [place] [phone] Kiana Oliver M.D. 200 [place] [address] 02/13/2025 1:00 PM CDT Appointment Department of Radiation Oncology in [address] [address] Kiana Oliver M.D. 200 [place] [address] 02/16/2025 7:15 AM CDT Ancillary Procedure Department of Ophthalmology in [place], [place] [address] [place] [phone] Maida Tim O.D. [address] [place] [phone] 02/16/2025 8:00 AM CDT Comprehensive Visit Department of Ophthalmology in [place], [place] [address] [place] [phone] Desi Rasmussen O.D. [address] [place] [phone] 02/23/2025 8:15 AM CDT Clinical Communication Virtual Review in [place], [place] 200 [place] [address] 02/24/2025 9:40 AM CDT Office Visit Department of Dermatology in [place], [place] [address] [place] [phone] Felipe Stewart M.D. [address] [place] [phone] 02/24/2025 10:00 AM CDT Office Visit Jeyson Kevin [facility] in [place], [place] [address] [place] [phone] Aide Welch, P.Aaron.-C., M.S. [address] [place] [phone] 03/03/2025 9:00 AM CDT Telemedicine Department of Nutrition and Diabetes Education in [place], [place] [address] [place] [phone] Katelin Alcaraz APRN, C.N.P., D.N.P. [address] [place] [phone] Mansi Ross M.S., RDN, LD [address] [place] [address] documented as of this encounter Visit Diagnoses Not on filedocumented in this encounter Additional Health Concerns Infection Onset Date Last Indicated Resolved Time Protective Environment 11/10/2023 11/10/2023 Assessment Noted Time PHQ-9 Depression Total Score: 19 025 12:23 PM MARKETING ADMIN documented as of this encounter Care Teams Health And Fitness Professor Relationship Specialty Start Date End Date Kelly Mendez APRN, C.N.P., D.N.P. [address] [place] [address] PCP - General Internal Medicine 12/05/23 [facility] [place] or Anabel [facility] lab Laboratory Medicine 02/26/23 documented as of this encounter
--- OUTSIDE RECORDS SUMMARY | 2025-02-02 22:51 | XMS_ITS | Encounter Summary ---
Author Organization [facility] Address [address] [place] [address] Care Team Providers Care Manager Product Design Name Role Phone Kelly Mendez APRN C.N.P., D.N.P. Primary Car e Provider Reason for Visit * Radiation Therapy (Routine) - Authorized Specialty Diagnoses / Procedures Referred By Juanito ayala Referred To Contact Diagnoses 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 Procedures Prior Auth Rad Tx [place] IMRT COMPLEX [place] GUIDANCE FOR [place] RAD [place] IMRT RADIOTHERAPY PLAN IMRT Kiana Oliver M.D. 200 [place] [address] Phone: tel: fax: [facility] Radiation Oncology at [place] [address] [place] [phone] Referral ID Status Reason Start Date Expiration Date V isits Requested Visits Authorized [id number] Authorized 12/22/2024 03/10/2026 15 30 Encounter Details Date Type Department Care Team (Late st Contact Info) Description 01/09/2025 12:37 PM DISSOLVER OPERATOR Hospital Encounter Department of Radiation Oncology in [address] [phone] Kiana Oliver M.D. [address] [place] [phone] Social History Tobacco Use Types Packs/Day Years Used Date Smoking Tobacco: Former Cigarettes Q uit: 2008 Passive Smoke Exposure: Never Smokeless Tobacco: Never Alcohol Use Standard Drinks/Week Comments Not Currently 0 (1 standard drink = 0.6 oz pur e alcohol) last 06/23/22 [facility] Utilities Answer Date Recorded In the [...] week 02/04/2023 How often do you attend samaritan or moravian serv ices? 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 [address] [place] [phone] 02/04/2025 1:00 PM CDT Appointment Department of Radiation Oncology in [address] [address] Kiana Oliver M.D. [address] [place] [phone] 02/05/2025 12:45 PM CDT Appointment Department of Radiation Oncology in [address] [address] Kiana Oliver M.D. [address] [place] [phone] 02/05/2025 1:00 PM CDT Appointment Department of Radiation Oncology in [address] [address] Kiana Oliver M.D. [address] [place] [phone] 02/06/2025 1:00 PM CDT Appointment Department of Radiation Oncology in [address] [address] Kiana Oliver M.D. [address] [place] [phone] 02/09/2025 1:00 PM CDT Appointment Department of Radiation Oncology in [place], [place] [address] [place] [phone] Kiana Oliver M.D. [address] [place] [phone] 02/10/2025 1:00 PM CDT Appointment Department of Radiation Oncology in [place], [place] [address] [place] [phone] Kiana Oliver M.D. [address] [place] [phone] 02/11/2025 1:00 PM CDT Appointment Department of Radiation Oncology in [address] [address] Kiana Oliver M.D. [address] [place] [phone] 02/12/2025 1:00 PM CDT Appointment Department of Radiation Oncology in [address] [address] Kiana Oliver M.D. [address] [place] [phone] 02/12/2025 1:15 PM CDT Appointment Department of Radiation Oncology in [address] [address] Kiana Oliver M.D. [address] [place] [phone] 02/13/2025 1:00 PM CDT Appointment Department of Radiation Oncology in [address] [address] Kiana Oliver M.D. [address] [place] [phone] 02/16/2025 7:15 AM CDT Ancillary Procedure Department of Ophthalmology in [place], [place] [address] [place] [phone] Maida Tim O.D. [address] [place] [phone] 02/16/2025 8:00 AM CDT Comprehensive Visit Department of Ophthalmology in [place], [place] [address] [place] [phone] Desi Rasmussen O.D. [address] [place] [phone] 02/23/2025 8:15 AM CDT Clinical Communication Virtual Review in [place], [place] 200 [place] [address] 02/24/2025 9:40 AM CDT Office Visit Department of Dermatology in [address] [address] Felipe Stewart M.D. [address] [place] [phone] 02/24/2025 10:00 AM CDT Office Visit Jeyson milan [facility] in [place], [place] [address] [place] [phone] Aide Welch P.A.Willie., M.S. [address] [place] [phone] 03/03/2025 9:00 AM CDT Telemedicine Department of Nutrition and Diabetes Education in [address] [phone] Katelin Alcaraz, MARCUS, C.N.P., D.N.P. [address] [place] [phone] Mnasi Ross M.S., RDN, LD [address] [place] [address] documented as of this encounter Visit Diagnoses Not on filedocumented in this encounter Additional Health Concerns Infection Onset Date Last Indicated Resolved Time Protective Environment 11/10/2023 11/10/2023 Assessment Noted Time PHQ-9 Depression Total Score: 19 025 12:23 PM DISSOLVER OPERATOR documented as of this encounter Care Teams Manager Product Design Relationship Specialty Start Date End Date Kelly Mendez APRN, C.N.P., D.N.P. [address] [place] [phone] PCP - General Internal Medicine 12/05/23 [facility] [place] or Anabel [facility] lab Laboratory Medicine 02/26/23 documented as of this encounter
--- OUTSIDE RECORDS SUMMARY | 2025-02-02 22:51 | XMS_ITS | Encounter Summary ---
Author Organization [facility] Address [address] [place] [address] Care Team Providers Care Garage Door Technician Name Role Phone Kelly Mendez APRN C.N.P., D.N.P. Primary Car e Provider Reason for Visit * Radiation Therapy (Routine) - Authorized Specialty Diagnoses / Procedures Referred By Juanito ayala Referred To Contact Diagnoses 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 Procedures Prior Auth Rad Tx [place] IMRT COM[place]X [place]UIDANCE FOR [place] RAD TX [place] IMRT RADIOTHERAPY PLAN IMRT Kiana Oliver M.D. 200 [place] [address] Phone: tel: fax: [facility] Radiation Oncology at [place] [address] [place] [phone] Referral ID Status Reason Start Date Expiration Date V isits Requested Visits Authorized [id number] Authorized 12/22/2024 03/10/2026 15 30 Encounter Details Date Type Department Care Team (Late st Contact Info) Description 01/30/2025 8:45 AM CDT Hospital Encounter Department of Radiation Oncology in [address] [phone] Kiana Oliver M.D. 200 [place] [phone] Social History Tobacco Use Types Packs/Day Years Used Date Smoking Tobacco: Former Cigarettes Q uit: 2008 Passive Smoke Exposure: Never Smokeless Tobacco: Never Alcohol Use Standard Drinks/Week Comments Not Currently 0 (1 standard drink = 0.6 oz pur e alcohol) last 06/23/22 [facility] Utilities Answer Date Recorded In [...] How often do you attend lutheran or moravian serv ices? 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 [address] [place] [phone] 02/04/2025 1:00 PM CDT Appointment Department of Radiation Oncology in [address] [phone] Kiana Oliver M.D. [address] [place] [phone] 02/05/2025 12:45 PM CDT Appointment Department of Radiation Oncology in [address] [address] Kiana Oliver M.D. [address] [place] [phone] 02/05/2025 1:00 PM CDT Appointment Department of Radiation Oncology in [address] [address] Kiana Oliver M.D. [address] [place] [phone] 02/06/2025 1:00 PM CDT Appointment Department of Radiation Oncology in [address] [address] Kiana Oliver M.D. [address] [place] [phone] 02/09/2025 1:00 PM CDT Appointment Department of Radiation Oncology in [place], [place] [address] [place] [phone] Kiana Oliver M.D. [address] [place] [address] 02/10/2025 1:00 PM CDT Appointment Department of Radiation Oncology in [place], [place] [address] [place] [phone] Kiana Oliver M.D. [address] [place] [address] 02/11/2025 1:00 PM CDT Appointment Department of Radiation Oncology in [address] [address] Kiana Oliver M.D. [address] [place] [address] 02/12/2025 1:00 PM CDT Appointment Department of Radiation Oncology in [address] [address] Kiana Oliver M.D. 200 [place] [address] 02/12/2025 1:15 PM CDT Appointment Department of Radiation Oncology in [address] [address] Kiana Oliver M.D. [address] [place] [address] 02/13/2025 1:00 PM CDT Appointment Department of Radiation Oncology in [address] [address] Kiana Oliver M.D. [address] [place] [phone] 02/16/2025 7:15 AM CDT Ancillary Procedure Department of Ophthalmology in [place], [place] [address] [place] [phone] Maida Tim O.D. [address] [place] [phone] 02/16/2025 8:00 AM CDT Comprehensive Visit Department of Ophthalmology in [place], [place] [address] [place] [phone] Desi Rasmussen O.D. [address] [place] [phone] 02/23/2025 8:15 AM CDT Clinical Communication Virtual Review in [place], [place] 200 [place] [address] 02/24/2025 9:40 AM CDT Office Visit Department of Dermatology in [address] [address] Felipe Stewart M.D. [address] [place] [phone] 02/24/2025 10:00 AM CDT Office Visit Jeyson milan [facility] in [place], [place] [address] [place] [phone] Aide Welch P.A.-C., M.S. [address] [place] [phone] 03/03/2025 9:00 AM CDT Telemedicine Department of Nutrition and Diabetes Education in [address] [phone] Katelin Alcaraz, MARCUS, C.N.P., D.N.P. [address] [place] [phone] Mansi Ross M.S., RDN, LD [address] [place] [address] documented as of this encounter Visit Diagnoses Not on filedocumented in this encounter Additional Health Concerns Infection Onset Date Last Indicated Resolved Time Protective Environment 11/10/2023 11/10/2023 Assessment Noted Time PHQ-9 Depression Total Score: 19 025 12:23 PM WARP TESTER documented as of this encounter Care Teams Garage Door Technician Relationship Specialty Start Date End Date Kelly Mendez APRN, C.N.P., D.N.P. [address] [place] [phone] PCP - General Internal Medicine 12/05/23 [facility] [place] or Anabel [facility] lab Laboratory Medicine 02/26/23 documented as of this encounter
--- OUTSIDE RECORDS SUMMARY | 2025-02-02 22:51 | XMS_ITS | Encounter Summary ---
Author Organization [facility] Address [address] [place] [address] Care Team Providers Care Rum Processing Operator Name Role Phone Kelly Mendez APRN C.N.P., D.N.P. Primary Car e Provider Reason for Visit * Radiation Therapy (Routine) - Authorized Specialty Diagnoses / Procedures Referred By Juanito ayala Referred To Contact Diagnoses 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 Procedures Prior Auth Rad Tx [place] IMRT COMPLEX [place] GUIDANCE FOR LOC RAD [place] IMRT RADIOTHERAPY PLAN IMRT Kiana Oliver M.D. 200 [place] [address] Phone: tel: fax: [facility] [place] [address] [place] [phone] Referral ID Status Reason Start Date Expiration Date V isits Requested Visits Authorized [id number] Authorized 12/22/2024 03/10/2026 15 30 Encounter Details Date Type Department Care Team (Late st Contact Info) Description 01/28/2025 12:49 PM CDT Hospital Encounter Department of Radiation Oncology in [address] [phone] Kiana Oliver M.D. 200 [place] [phone] Social History Tobacco Use Types Packs/Day Years Used Date Smoking Tobacco: Former Cigarettes Q uit: 2008 Passive Smoke Exposure: Never Smokeless Tobacco: Never Alcohol Use Standard Drinks/Week Comments Not Currently 0 (1 standard drink = 0.6 oz pur e alcohol) last 06/23/22 [facility] Utilities Answer Date Recorded In the [...] week 02/04/2023 How often do you attend nondenominational or mormon serv ices? 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 [address] [place] [phone] 02/04/2025 1:00 PM CDT Appointment Department of Radiation Oncology in [address] [address] Kiana Oliver M.D. [address] [place] [phone] 02/05/2025 12:45 PM CDT Appointment Department of Radiation Oncology in [address] [address] Kiana Oliver M.D. [address] [place] [phone] 02/05/2025 1:00 PM CDT Appointment Department of Radiation Oncology in [address] [address] Kiana Oliver M.D. [address] [place] [address] 02/06/2025 1:00 PM CDT Appointment Department of Radiation Oncology in [address] [address] Kiana Oliver M.D. [address] [place] [phone] 02/09/2025 1:00 PM CDT Appointment Department of Radiation Oncology in [place], [place] [address] [place] [phone] Kiana Oliver M.D. [address] [place] [address] 02/10/2025 1:00 PM CDT Appointment Department of Radiation Oncology in [place], [place] [address] [place] [address] Kiana Oliver M.D. [address] [place] [address] 02/11/2025 1:00 PM CDT Appointment Department of Radiation Oncology in [address] [address] Kiana Oliver M.D. [address] [place] [address] 02/12/2025 1:00 PM CDT Appointment Department of Radiation Oncology in [address] [address] Kiana Oliver M.D. 200 [place] [address] 02/12/2025 1:15 PM CDT Appointment Department of Radiation Oncology in [address] [address] Kiana Oliver M.D. 200 [place] [address] 02/13/2025 1:00 PM CDT Appointment Department of Radiation Oncology in [address] [address] Kiana Oliver M.D. [address] [place] [phone] 02/16/2025 7:15 AM CDT Ancillary Procedure Department of Ophthalmology in [place], [place] [address] [place] [phone] Maida Tim O.D. [address] [place] [phone] 02/16/2025 8:00 AM CDT Comprehensive Visit Department of Ophthalmology in [place], [place] [address] [place] [phone] Desi Rasmussen O.D. [address] [place] [phone] 02/23/2025 8:15 AM CDT Clinical Communication Virtual Review in [place], [place] 200 [place] [address] 02/24/2025 9:40 AM CDT Office Visit Department of Dermatology in [address] [address] Felipe Stewart M.D. [address] [place] [phone] 02/24/2025 10:00 AM CDT Office Visit Jeyson milan [facility] for Transplantation and Clinical Regeneration in [place], [place] [address] [place] [phone] Aide Welch P.A.-C., M.S. [address] [place] [phone] 03/03/2025 9:00 AM CDT Telemedicine Department of Nutrition and Diabetes Education in [address] [address] Katelin Alcaraz, MARCUS, C.N.P., D.N.P. [address] [place] [phone] Mansi Ross M.S., RDN, LD [address] [place] [address] documented as of this encounter Visit Diagnoses Not on filedocumented in this encounter Additional Health Concerns Infection Onset Date Last Indicated Resolved Time Protective Environment 11/10/2023 11/10/2023 Assessment Noted Time PHQ-9 Depression Total Score: 19 025 12:23 PM JAVA SQL DEVELOPER documented as of this encounter Care Teams Rum Processing Operator Relationship Specialty Start Date End Date Kelly Mendez APRN, C.N.P., D.N.P. [address] [place] [phone] PCP - General Internal Medicine 12/05/23 [facility] [place] or Anabel [facility] lab Laboratory Medicine 02/26/23 documented as of this encounter
--- OUTSIDE RECORDS SUMMARY | 2025-02-02 22:51 | XMS_ITS | Encounter Summary ---
Author Organization [facility] Address [address] [place] [address] Care Team Providers Care Emergency Preparedness Coordinator Name Role Phone Kelly Mendez APRN C.N.P., D.N.P. Primary Car e Provider Reason for Visit * Radiation Therapy (Routine) - Authorized Specialty Diagnoses / Procedures Referred By Juanito ayala Referred To Contact Diagnoses 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 Procedures Prior Auth Rad Tx [place] IMRT COMPLEX [place] GUIDANCE FOR LOC RAD [place] IMRT RADIOTHERAPY PLAN IMRT Kiana Oliver M.D. 200 [place] [address] Phone: tel: fax: [facility] Radiation Oncology at [place] [address] [place] [phone] Referral ID Status Reason Start Date Expiration Date V isits Requested Visits Authorized [id number] Authorized 12/22/2024 03/10/2026 15 30 Encounter Details Date Type Department Care Team (Late st Contact Info) Description 01/14/2025 12:26 PM DIRECTOR OF EDUCATION AND TRAINING Hospital Encounter Department of Radiation Oncology in [address] [phone] Kiana Oliver M.D. [address] [place] [phone] Social History Tobacco Use Types Packs/Day Years Used Date Smoking Tobacco: Former Cigarettes Q uit: 2008 Passive Smoke Exposure: Never Smokeless Tobacco: Never Alcohol Use Standard Drinks/Week Comments Not Currently 0 (1 standard drink = 0.6 oz pur e alcohol) last 06/23/22 [facility] Utilities Answer Date Recorded In [...] How often do you attend nondenominational or shinto serv ices? Patient declined 02/04/2023 Do you [...] AM CDT Legal Sex Male 9:11 PM DIRECTOR OF EDUCATION AND TRAINING Gender Identity na 09/07/2021 10:32 AM CDT Sexual Orientation Choose not to disclose 2020 10:32 AM CDT documented as of this encounter Plan of Treatment Upcoming Encounters Date Type Department Care Team (Latest Contact Info) Description 02/03/2025 1:00 PM CDT Appointment Department of Radiation Oncology in [address] [address] Kiana Oliver M.D. [address] [place] [phone] 02/04/2025 1:00 PM CDT Appointment Department of Radiation Oncology in [address] [address] Kiana Oliver M.D. [address] [place] [address] 02/05/2025 12:45 PM CDT Appointment Department of Radiation Oncology in [address] [address] Kiana Oliver M.D. [address] [place] [phone] 02/05/2025 1:00 PM CDT Appointment Department of Radiation Oncology in [address] [address] Kiana Oliver M.D. [address] [place] [phone] 02/06/2025 1:00 PM CDT Appointment Department of Radiation Oncology in [address] [address] Kiana Oliver M.D. [address] [place] [phone] 02/09/2025 1:00 PM CDT Appointment Department of Radiation Oncology in [place], [place] [address] [place] [phone] Kiana Oliver M.D. [address] [place] [phone] 02/10/2025 1:00 PM CDT Appointment Department of Radiation Oncology in [place], [place] [address] [place] [phone] Kiana Oliver M.D. [address] [place] [phone] 02/11/2025 1:00 PM CDT Appointment Department of Radiation Oncology in [address] [address] Kiana Oliver M.D. [address] [place] [phone] 02/12/2025 1:00 PM CDT Appointment Department of Radiation Oncology in [address] [address] Kiana Oliver M.D. [address] [place] [phone] 02/12/2025 1:15 PM CDT Appointment Department of Radiation Oncology in [address] [address] Kiana Oliver M.D. [address] [place] [phone] 02/13/2025 1:00 PM CDT Appointment Department of Radiation Oncology in [address] [address] Kiana Oliver M.D. [address] [place] [phone] 02/16/2025 7:15 AM CDT Ancillary Procedure Department of Ophthalmology in [place], [place] [address] [place] [phone] Maida Tim O.D. [address] [place] [phone] 02/16/2025 8:00 AM CDT Comprehensive Visit Department of Ophthalmology in [place], [place] [address] [place] [phone] Desi Rasmussen O.D. [address] [place] [phone] 02/23/2025 8:15 AM CDT Clinical Communication Virtual Review in [place], [place] 200 [place] [address] 02/24/2025 9:40 AM CDT Office Visit Department of Dermatology in [address] [address] Felipe Stewart M.D. [address] [place] [phone] 02/24/2025 10:00 AM CDT Office Visit Jeyson milan [facility] for Transplantation and Clinical Regeneration in [place], [place] [address] [place] [phone] Aide Welch P.A.Willie., M.S. [address] [place] [phone] 03/03/2025 9:00 AM CDT Telemedicine Department of Nutrition and Diabetes Education in [address] [address] Katelin Alcaraz, MARCUS, C.N.P., D.N.P. [address] [place] [address] Mansi Ross M.S., RDN, LD [address] [place] [address] documented as of this encounter Visit Diagnoses Not on filedocumented in this encounter Additional Health Concerns Infection Onset Date Last Indicated Resolved Time Protective Environment 11/10/2023 11/10/2023 Assessment Noted Time PHQ-9 Depression Total Score: 19 025 12:23 PM DIRECTOR OF EDUCATION AND TRAINING documented as of this encounter Care Teams Emergency Preparedness Coordinator Relationship Specialty Start Date End Date Kelly Mendez APRN, C.N.P., D.N.P. [address] [place] [phone] PCP - General Internal Medicine 12/05/23 [facility] [place] or Anabel [facility] lab Laboratory Medicine 02/26/23 documented as of this encounter
--- OUTSIDE RECORDS SUMMARY | 2025-02-02 22:51 | XMS_ITS | Encounter Summary ---
Author Organization [facility] Address [address] [place] [address] Care Team Providers Care Programmer Operator Numerical Control Name Role Phone Kelly Mendez APRN C.N.P., D.N.P. Primary Car e Provider Reason for Visit * Radiation Therapy (Routine) - Authorized Specialty Diagnoses / Procedures Referred By Juanito ayala Referred To Contact Diagnoses 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 Procedures Prior Auth Rad Tx [place] IMRT COMPLEX [place] GUIDANCE FOR LOC RAD [place] IMRT RADIOTHERAPY PLAN IMRT Kiana Oliver M.D. [address] [place] [address] Phone: tel: fax: [facility] Radiation Oncology at [place] [address] [place] [phone] Referral ID Status Reason Start Date Expiration Date V isits Requested Visits Authorized [id number] Authorized 12/22/2024 03/10/2026 15 30 Encounter Details Date Type Department Care Team (Late st Contact Info) Description 02/02/2025 11:43 AM CDT Hospital Encounter Department of Radiation Oncology in [place], [place] [address] [place] [phone] Kiana Oliver M.D. 200 [place] [phone] Social History Tobacco Use Types Packs/Day Years [...] week 02/04/2023 How often do you attend zoroastrianism or anabaptist serv ices? 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 [address] [place] [phone] 02/04/2025 1:00 PM CDT Appointment Department of Radiation Oncology in [address] [address] Kiana Oliver M.D. [address] [place] [phone] 02/05/2025 12:45 PM CDT Appointment Department of Radiation Oncology in [address] [address] Kiana Oliver M.D. [address] [place] [phone] 02/05/2025 1:00 PM CDT Appointment Department of Radiation Oncology in [address] [address] Kiana Oliver M.D. [address] [place] [phone] 02/06/2025 1:00 PM CDT Appointment Department of Radiation Oncology in [address] [address] Kiana Oliver M.D. [address] [place] [phone] 02/09/2025 1:00 PM CDT Appointment Department of Radiation Oncology in [place], [place] [address] [place] [address] Kiana Oliver M.D. [address] [place] [address] 02/10/2025 1:00 PM CDT Appointment Department of Radiation Oncology in [place], [place] [address] [place] [phone] Kiana Oliver M.D. [address] [place] [address] 02/11/2025 1:00 PM CDT Appointment Department of Radiation Oncology in [address] [address] Kiana Oliver M.D. [address] [place] [address] 02/12/2025 1:00 PM CDT Appointment Department of Radiation Oncology in [address] [address] Kiana Oliver M.D. [address] [place] [address] 02/12/2025 1:15 PM CDT Appointment Department of Radiation Oncology in [address] [address] Kiana Oliver M.D. 200 [place] [address] 02/13/2025 1:00 PM CDT Appointment Department of Radiation Oncology in [address] [address] Kiana Oliver M.D. [address] [place] [phone] 02/16/2025 7:15 AM CDT Ancillary Procedure Department of Ophthalmology in [place], [place] [address] [place] [phone] Maida Tim O.D. [address] [place] [phone] 02/16/2025 8:00 AM CDT Comprehensive Visit Department of Ophthalmology in [place], [place] [address] [place] [phone] Desi Rasmussen O.D. [address] [place] [phone] 02/23/2025 8:15 AM CDT Clinical Communication Virtual Review in [place], [place] 200 [place] [address] 02/24/2025 9:40 AM CDT Office Visit Department of Dermatology in [address] [address] Felipe Stewart M.D. [address] [place] [phone] 02/24/2025 10:00 AM CDT Office Visit Jeyson milan [facility] for Transplantation and Clinical Regeneration in [place], [place] [address] [place] [phone] Aide Welch P.A.-C., M.S. [address] [place] [phone] 03/03/2025 9:00 AM CDT Telemedicine Department of Nutrition and Diabetes Education in [address] [phone] Katelin Alcaraz, MARCUS, C.N.P., D.N.P. [address] [place] [phone] Mansi Ross M.S., RDN, LD [address] [place] [address] documented as of this encounter Visit Diagnoses Not on filedocumented in this encounter Additional Health Concerns Infection Onset Date Last Indicated Resolved Time Protective Environment 11/10/2023 11/10/2023 Assessment Noted Time PHQ-9 Depression Total Score: 19 025 12:23 PM LODGING MANAGER documented as of this encounter Care Teams Programmer Operator Numerical Control Relationship Specialty Start Date End Date Kelly Mendez APRN, C.N.P., D.N.P. [address] [place] [phone] PCP - General Internal Medicine 12/05/23 [facility] [place] or Anabel [facility] lab Laboratory Medicine 02/26/23 documented as of this encounter
--- OUTSIDE RECORDS SUMMARY | 2025-02-02 22:52 | XMS_ITS | Encounter Summary ---
Author Organization [facility] Address [address] [place] [address] Care Team Providers Care Application Support Developer Name Role Phone AndreaJuddKellylilia Buchanan APRN C.N.P., D.N.P. Primary Car e Provider Reason for Visit * Reason Onset Date Comments Med Refill 01/28/2025 Encounter Details Date Type Department Care Team (Late st Contact Info) Description 01/28/2025 Refill Division of Endocrinology in [place], [place] [address] [place] [address] Bryson Lr M.D. [address] [place] [address] Med Refill Social History Tobacco Use Types Packs/Day Years Used Date Smoking Tobacco: Former Cigarettes Q uit: 2008 Passive Smoke Exposure: Never Smokeless Tobacco: Never Alcohol Use Standard Drinks/Week Comments Not Currently 0 (1 standard drink = 0.6 oz pur e alcohol) last 06/23/22 [facility] Utilities Answer Date Recorded In the past 12 months has e [employer], gas, oil, or water [employer] threatened to shut off services in your [...] week 02/04/2023 How often do you attend latter-day or jew serv ices? 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 200 [place] [address] 02/04/2025 1:00 PM CDT Appointment Department of Radiation Oncology in [place], [place] [address] [place] [phone] Kiana Oliver M.D. [address] [place] [phone] 02/05/2025 12:45 PM CDT Appointment Department of Radiation Oncology in [place], [place] [address] [place] [phone] Kiana Oliver M.D. [address] [place] [phone] 02/05/2025 1:00 PM CDT Appointment Department of Radiation Oncology in [address] [address] Kiana Oliver M.D. [address] [place] [phone] 02/06/2025 1:00 PM CDT Appointment Department of Radiation Oncology in [place], [place] [address] [place] [phone] Kiana Oliver M.D. [address] [place] [phone] 02/09/2025 1:00 PM CDT Appointment Department of Radiation Oncology in [place], [place] [address] [place] [address] Kiana Oliver M.D. [address] [place] [phone] 02/10/2025 1:00 PM CDT Appointment Department of Radiation Oncology in [address] [address] Kiana Oliver M.D. [address] [place] [phone] 02/11/2025 1:00 PM CDT Appointment Department of Radiation Oncology in [place], [place] [address] [place] [phone] Kiana Oliver M.D. [address] [place] [phone] 02/12/2025 1:00 PM CDT Appointment Department of Radiation Oncology in [place], [place] [address] [place] [phone] Kiana Oliver M.D. [address] [place] [phone] 02/12/2025 1:15 PM CDT Appointment Department of Radiation Oncology in [address] [address] Kiana Oliver M.D. [address] [place] [phone] 02/13/2025 1:00 PM CDT Appointment Department of Radiation Oncology in [place] [address] [place] [address] Kiana Oliver M.D. [address] [place] [phone] 02/16/2025 7:15 AM CDT Ancillary Procedure Department of Ophthalmology in [place], [place] [address] [place] [phone] Maida Tim O.D. [address] [place] [phone] 02/16/2025 8:00 AM CDT Comprehensive Visit Department of Ophthalmology in [place], [place] [address] [place] [phone] Desi Rasmussen O.D. [address] [place] [phone] 02/23/2025 8:15 AM CDT Clinical Communication Virtual Review in [place], [place] 200 [place] [address] 02/24/2025 9:40 AM CDT Office Visit Department of Dermatology in [place], [place] [address] [place] [phone] Felipe Stewart M.D. [address] [place] [phone] 02/24/2025 10:00 AM CDT Office Visit Jeyson Brown [facility] for Transplantation and Clinical Regeneration in [place], [place] [address] [place] [phone] Aide Welch P.A.-C., M.S. [address] [place] [phone] 03/03/2025 9:00 AM CDT Telemedicine Department of Nutrition and Diabetes Education in [place], [place] [address] [place] [phone] Katelin Alcaraz APRN, C.N.P., D.N.P. [address] [place] [phone] Mansi Ross M.S., RDN, LD [address] [place] [phone] documented as of this encounter Visit Diagnoses Diagnosis Diabetes Mellitus Type 2 Hyperglycemia (HCC) documented in this encounter Additional Health Concerns Infection Onset Date Last Indicated Resolved Time Protective Environment 11/10/2023 11/10/2023 Assessment Noted Time PHQ-9 Depression Total Score: 19 11/23/ 025 12:23 PM ALUMINUM CAN COLLECTOR documented as of this encounter Care Teams Application Support Developer Relationship Specialty Start Date End Date Kelly Mendez, TRAILER ASSEMBLER, C.N.P., D.N.P. [address] [place] [phone] PCP - General Internal Medicine 12/05/23 [facility] [place] or Anabel [facility] lab Laboratory Medicine 02/26/23 documented as of this encounter
[2025-02-02 23:09] VITALS: BP 113/76; PULSE 108; RESP 16; TEMP 36.9; O2SAT 98; BMI 16.8
--- NOTE | 2025-02-02 23:34 | ED.GENADULT ---
HPI - General Adult General Date Seen: 02/02/25 Chief complaint: Post Op Complication Stated complaint: Feeding tube dislodged--stomach pain Time Seen by Provider: 02/02/25 23:19 History of Present Illness HPI narrative: 64 yo M with history of liver transplant, skin cancer on his face, chronic kidney disease, hypertension, hyperlipidemia. He is currently on immunosuppressive for his liver transplant. He had a gastrostomy tube placed by his doctors at [facility] last October, 3 months ago in anticipation that he might need gastric tube feedings to help maintain nutrition and hydration. However he has had intolerance of his G-tube feedings (apparently getting nauseous) so has not actually used his G-tube in the past few months. In consultation with his doctors at [facility], they have discussed possibly changing his G-tube into a GJ tube so he can tolerate the tube feeds better. However he has been doing well enough by oral intake that he is not even using any gastric tube feeding at all. He is able to take his meds by mouth. Tonight as he was getting ready for bed, he noticed that his G tube had fallen out. He is not having any pain in his G-tube was not tug door pulled off. It looks like the balloon spontaneously deflated on the G-tube. When his G-tube had been placed, last October, he and his were given a replacement G-tube kit and were told to come immediately to the ER for G-tube replacement if the tube over falls out. Knowing this, his brought him here to the ER immediately tonight. However, the patient expresses his desire not to have the G-tube replaced. He says he is not using it any like to have it out. He says he is able to take all of his normal medications and oral intake by mouth. is in agreement. However she wonders when it would be safe for him to take his night meds. She is worried they might leak out the G-tube trach. Related Data Home Medications ?Medication ?Instructions ?Recorded ?Confirmed atorvastatin 10 mg tablet mg 06/24/22 07/12/22 ferrous sulfate 324 mg (65 mg mg PO 06/24/22 07/12/22 iron) tablet,delayed release folic acid 1 mg tablet 06/24/22 07/12/22 furosemide 20 mg tablet mg 06/24/22 07/12/22 glipizide 2.5 mg tablet, extended mg PO BID 06/24/22 07/12/22 release 24 hr glipizide 5 mg tablet 7.5 mg PO BID 06/24/22 07/12/22 lactulose 10 gram/15 mL oral 0.75 ml PO DAILY 06/24/22 07/12/22 solution magnesium 500 mg tablet 15 mg PO DAILY 06/24/22 07/12/22 nadolol 20 mg tablet mg 06/24/22 07/12/22 omeprazole 40 mg capsule,delayed mg 06/24/22 07/12/22 release ropinirole 0.25 mg tablet 1 mg PO DAILY 06/24/22 07/12/22 spironolactone 25 mg tablet mg 06/24/22 07/12/22 Allergies Allergy/AdvReac Type Severity Reaction Status Date / Time duloxetine Allergy Intermediate Unknown Verified 07/12/22 10:24 [facility] Medical History Anemia ?D64.9 - Anemia, unspecified (ICD-10) Alcoholic cirrhosis of liver with ascites ?K70.31 - Alcoholic cirrhosis of liver with ascites (ICD-10) Restless legs syndrome ?G25.81 - Restless legs syndrome (ICD-10) Osteoarthritis of knee ?M17.10 - Unilateral primary osteoarthritis, unspecified knee (ICD-10) Gout ?M10.9 - Gout, unspecified (ICD-10) Surgical History History of total knee replacement (2015) ?Z96.659 - Presence of unspecified artificial knee joint (ICD-10) History of tonsillectomy (1965) ?Z90.89 - Acquired absence of other organs (ICD-10) History of partial surgical removal of colon (2002) ?Z90.49 - Acquired absence of other specified parts of digestive tract (ICD-10) Family History Father Diabetes Myocardial infarction, Onset Age: 81 Social History Narrative: Does not have regular exercise regimen , computer cat, 2 kids Non-smoker- ex smoker quit 2006, hx 30 pack years Social drinker- 10/week Smoking Status: Unknown if ever smoked Do you use any of these nicotine containing products: None Second hand tobacco smoke exposure: No How often do you have a drink containing alcohol: monthly or less AUDIT-C Alcohol total score: 1 Non-prescribed substance use: denies use Exam Narrative: Exam Narrative: Constitutional: Appears well-developed and well-nourished. Alert. Conversant. Non toxic. HENT: Head: Atraumatic. Nose: Nose normal. Mouth/Throat: Oral mucosa is clear and moist. Dressing on place on left cheek covering his skin cancer Eyes: Conjunctivae normal. EOM normal. Pupils equal, round, and reactive to light. No scleral icterus. Neck: Normal range of motion. Neck supple. No tracheal deviation present. Cardiovascular: Normal rate, regular rhythm. No gallop. No friction rub. No murmur heard. Symmetric radial artery pulses Pulmonary/Chest: Effort normal. No stridor. No respiratory distress. No wheezes. No rales. No rhonchi . No tenderness. Abdominal: Soft. Bowel sounds normal. Y shaped upper abdominal incision is well-healed. He does have a G-tube site measuring about 5-6 mm in diameter. The rim has some dry scaled granulation tissue. The central portion has some pink mucosal tissue with a small amount of clear drainage. No signs of any active gastric fluid drainage or purulent drainage or bleeding. No distension. No mass. No tenderness. No rebound. No guarding. Musculoskeletal: RUE: Normal range of motion. No tenderness. No deformity LUE: Normal range of motion. No tenderness. No deformity RLE: Normal range of motion. No edema. No tenderness. No deformity LLE: Normal range of motion. No edema. No tenderness. No deformity Neurological: Alert and oriented to person, place, and time. Normal strength. CN II-VII intact. No sensory deficit. GCS eye subscore is 4. GCS verbal subscore is 5. GCS motor subscore is 6. Normal coordination Skin: Skin is warm and dry. No rash noted. No pallor. Normal capillary refill. Psychiatric: Normal mood. Normal affect. Const: Vital Signs, click to edit/add: Vital Signs - 24 hr 02/02/25 23:09 Temperature 98.5 F Pulse Rate [Pulse Oximeter] 108 H Respiratory Rate 16 Blood Pressure [Ri ght Upper Arm] 113/76 Pulse Oximetry 98 Oxygen Delivery Me thod Room Air Course Vital Signs Vital signs: Initial Vital Signs Temperature 98.5 F 02/02/25 23:09 Temperature Source Temporal Artery Scan 02/02/25 23:09 Pulse Rate 108 H 02/02/25 23:09 Pulse Rhythm Regular 02/02/25 23:09 Respiratory Rate 16 02/02/25 23:09 Blood Pressure 113/76 02/02/25 23:09 Blood Pressure Mean 88 02/02/25 23:09 Blood Pressure Position Sitting 02/02/25 23:09 Pulse Oximetry 98 02/02/25 23:09 Oxygen Delivery Method Room Air 02/02/25 23:09 Vital Signs Temperature 98.5 F 02/02/25 23:09 Pulse Rate 108 H 02/02/25 23:09 Respiratory Rate 16 02/02/25 23:09 Blood Pressure 113/76 02/02/25 23:09 Pulse Oximetry 98 02/02/25 23:09 Oxygen Delivery Method Room Air 02/02/25 23:09 Temperature 98.5 F 02/02/25 23:09 Pulse Rate 108 H 02/02/25 23:09 Respiratory Rate 16 02/02/25 23:09 Blood Pressure 113/76 02/02/25 23:09 Pulse Oximetry 98 02/02/25 23:09 Oxygen Delivery Method Room Air 02/02/25 23:09 Medical Decision Making MDM Narrative Medical decision making narrative: Very pleasant 64-year-old gentleman presents to the ER today after his G-tube accidentally dislodged. It looks like the balloon on his previous G-tube spontaneously became deflated and the tube just fell out. There is no signs of any forceful tugging or trauma to the G-tube trach or abdominal wall. Although the patient presented within about 4 hours of the tube falling out and brought his replacement G-tube with him, he is expressing his firm desire not to have the G-tube replaced. He says he has not been using it for the past few months and it is just inconvenience for him. He understands that if we do not expeditiously replace the G-tube tonight the trach will heal shut and then he would need surgical replacement of a new G-tube. However, his notes that he has not been tolerant of his G-tube feeds in the past and that if he needs to go back on tube feeds his doctors at [facility] would have to put in a GJ tube instead. Therefore, respecting the patient's autonomy, we will be the G tube out for tonight In terms the G-tube site it appears to be healing appropriately. There is no signs of any bleeding, gastric fluid drainage, or purulent drainage to suggest infection. A sterile gauze dressing was placed over the tube. Patient will monitor carefully for any signs of bloody, purulent, or excessive drainage. If any concerns develop or abdominal pain or fever, he will return to the ER immediately to be rechecked. Discharge Plan Discharge Clinical Impression: Dislodged gastrostomy tube Patient Disposition: Home, Self-Care Condition: Stable Additional Instructions: Since you have chosen not to replace your gastric tube, we will leave it out for tonight. If you need tube feeds in the future, contact your team at the [facility] for replacement of a G-tube or placement of a GJ tube. At this time it is okay to resume your regular oral medications and your regular oral intake including liquids and solids. Please keeping a dressing in place over the gastric tube site on your abdominal wall. Monitor for excess drainage, bleeding, or pus draining from the wound. Monitor for signs of redness or swelling around the wound. If you have any concerns, please contact your doctors at [facility] or come back to the ER right away to be rechecked Prescriptions: No Action atorvastatin 10 mg tablet folic acid 1 mg tablet furosemide 20 mg tablet Rx Instructions: taking 10 mg ferrous sulfate 324 mg (65 mg iron) tablet,delayed release (DR/EC) PO glipizide 2.5 mg tablet extended release 24hr PO BID glipizide 5 mg tablet 7.5 mg PO BID omeprazole 40 mg capsule,delayed release(DR/EC) nadolol 20 mg tablet ropinirole 0.25 mg tablet 1 mg PO DAILY spironolactone 25 mg tablet lactulose 10 gram/15 mL solution 0.75 ml PO DAILY magnesium 500 mg tablet 15 mg PO DAILY Follow Up/Referrals: Akanksha Villarreal NP [Referring] - Stand Alone Forms: [facility] Info Instructions
--- OUTSIDE RECORDS SUMMARY | 2025-02-02 23:57 | XMS_ITS | Encounter Summary ---
Author Organization [facility] Address [address] [place] [address] Care Team Providers Care Director Equipment Name Role Phone Wally Daniel MD Primary Care Provider Unavailable Wally Daniel MD Unavailable Unavai lable No Ref-Primary, Physician Primary Care Provider Tennille Goddard APRN ACTIVITIES MANAGER Unavailable [phone] Tennille Goddard APRN ACTIVITIES MANAGER Unavailable [phone] Beatris Ty [facility] Unavailable [phone] Dov Alston [facility] Unavailable Unavailable Tennille Goddard APRN ACTIVITIES MANAGER Primary Care Provider + Dov Alston RP Unavailable Unavailable Dov Alston RP Unavailable Unavailable Reason for Visit * Reason Onset Date Comments MyChart Communication 05/01/2015 Encounter Details Date Type Department Care Team (Latest Contact Info) Description 05/01/2015 MyC Medical Advice [address] [address] Wally Daniel MD [place] Communication Social History Tobacco Use Types Packs/Day [...] on file 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 Gender Identity Not on file Sexual Orientation [...] deficiency documented in this encounter Care Teams Director Equipment Relationship Specialty Start Date End Date Wally Daniel MD PCP - General 12/17/03 12/08/18 Wally Daniel MD PCP - Assigned PCP 10/16/10 12/14/18 No Ref-Primary, Physician PCP - General 12/09/18 08/17/19 Tennille Goddard APRN ACTIVITIES MANAGER [id number] [address] PCP - Assigned PCP 12/15/18 01/21/19 Tennille Goddard APRN ACTIVITIES MANAGER [address] [place] [address] PCP - General Nurse Practitioner - Family 08/18/19 Tennille Goddard APRN ACTIVITIES MANAGER [address] [address] [address] Assigned PCP 12/15/18 01/07/22 Beatris Ty [facility] [address] [place] [address] Pharmacist Pharmacist 04/08/19 01/12/21 Dov Alston [facility] [address] [place] [address] Pharmacist Pharmacist 06/16/19 Dov Alston [facility] [address] [place] [address] Assigned MTM Pharmacist 04/15/22 08/04/22 Dov Alston [facility] [address] [place] [address] Assigned [place] Pharmacist 08/16/22 10/27/22 documented as of this encounter
--- OUTSIDE RECORDS SUMMARY | 2025-02-02 23:57 | XMS_ITS | Encounter Summary ---
Author Organization [facility] Address [address] [place] [address] Care Team Providers Care Rag Room Supervisor Name Role Phone Kelly Mendez APRN C.N.PKathrin, D.N.P. Primary Car e Provider Encounter Details Date Type Department Care Team (Late st Contact Info) Description 12/11/2024 Orders Only Department of Dermatology in [place], [place] [address] [place] [address] Elsi Goldsmith M.D. [address] [place] [address] Social History Tobacco Use Types Packs/Day Years Used Date Smoking Tobacco: Former Cigarettes Q uit: 2008 Passive Smoke Exposure: Never Smokeless Tobacco: Never Alcohol Use Standard Drinks/Week Comments Not Currently 0 (1 standard drink = 0.6 oz pur e alcohol) last 06/23/22 [facility] Utilities Answer Date Recorded In the past 12 months has e electric, gas, oil, or water [employer] threatened to shut off services in your [...] week 02/04/2023 How often do you attend worship or spiritism serv ices? 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 [address] 02/04/2025 1:00 PM CDT Appointment Department of Radiation Oncology in [place] [address] [place] [address] Kiana Oliver M.D. [address] [place] [phone] 02/05/2025 12:45 PM CDT Appointment Department of Radiation Oncology in [place], [place] [address] [place] [address] Kiana Oliver M.D. [address] [place] [phone] 02/05/2025 1:00 PM CDT Appointment Department of Radiation Oncology in [place], [place] [address] [place] [phone] Kiana Oliver M.D. [address] [place] [phone] 02/06/2025 1:00 PM CDT Appointment Department of Radiation Oncology in [place], [place] [address] [place] [phone] Kiana Oliver M.D. [address] [place] [phone] 02/09/2025 1:00 PM CDT Appointment Department of Radiation Oncology in [place], [place] [address] [place] [address] Kiana Oliver M.D. [address] [place] [phone] 02/10/2025 1:00 PM CDT Appointment Department of Radiation Oncology in [place], [place] [address] [place] [address] Kiana Oliver M.D. [address] [place] [phone] 02/11/2025 1:00 PM CDT Appointment Department of Radiation Oncology in [place], [place] [address] [place] [phone] Kiana Oliver M.D. [address] [place] [phone] 02/12/2025 1:00 PM CDT Appointment Department of Radiation Oncology in [place], [place] [address] [place] [address] Kiana Oliver M.D. [address] [place] [phone] 02/12/2025 1:15 PM CDT Appointment Department of Radiation Oncology in [address] [phone] Kiana Oliver M.D. [address] [place] [phone] 02/13/2025 1:00 PM CDT Appointment Department of Radiation Oncology in [place], [place] [address] [place] [address] Kiana Oliver M.D. [address] [place] [phone] 02/16/2025 7:15 AM CDT Ancillary Procedure Department of Ophthalmology in [place], [place] [address] [place] [phone] Maida Tim O.D. [address] [place] [phone] 02/16/2025 8:00 AM CDT Comprehensive Visit Department of Ophthalmology in [place], [place] [address] [place] [phone] Desi Rasmussen O.D. [address] [place] [phone] 02/23/2025 8:15 AM CDT Clinical Communication Virtual Review in [place], [place] [address] [place] [address] 02/24/2025 9:40 AM CDT Office Visit Department of Dermatology in [place], [place] [address] [place] [phone] Felipe Stewart M.D. [address] [place] [phone] 02/24/2025 10:00 AM CDT Office Visit Jeyson milan [facility] in [address] [phone] Aide Welch P.A.-C., M.S. [address] [place] [phone] 03/03/2025 9:00 AM CDT Telemedicine Department of Nutrition and Diabetes Education in [address] [phone] Katelin Alcaraz APRN, C.N.P., D.N.P. 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 [address] [place] [phone] PCP - General Internal Medicine 12/05/23 Rhea [facility] [place] or Anabel [facility] lab Laboratory Medicine 02/26/23 documented as of this encounter
--- OUTSIDE RECORDS SUMMARY | 2025-02-02 23:57 | XMS_ITS | Encounter Summary ---
Author Organization [facility] Address [address] [place] [address] Care Team Providers Care Diesel Technician Mechanic Name Role Phone Wally Daniel MD Primary Care Provider Unavailable Wally Daniel MD Unavailable Unavai lable No Ref-Primary, Physician Primary Care Provider Tennille Goddard APRN .NET PROGRAMMER Unavailable [phone] Tennille Goddard APRN .NET PROGRAMMER Unavailable [phone] Beatris Ty [facility] Unavailable [phone] Dov Alston [facility] Unavailable Unavailable Tennille Goddard APRN .NET PROGRAMMER Primary Care Provider + Dov Alston RPH Unavailable Unavailable Dov Alston RPH Unavailable Unavailable Encounter Details Date Type Department Care Team (Late st Contact Info) Description 02/17/2015 Abstract [facility] [address] [facility] [address] [place] [address] Kael Frye MD [facility] [address] [place] [address] [address] [place] [address] [facility], OP REPORT, 02/17/15 Social History Tobacco [...] on file 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 Gender Identity Not on file Sexual Orientation Not on file 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 as of this encounter Plan of Treatment Not on file documented as of this encounter Visit Diagnoses Not on filedocumented in this encounter Care Teams Diesel Technician Mechanic Relationship Specialty Start Date End Date Wally Daniel MD PCP - General 12/17/03 12/08/18 Wally Daniel MD PCP - Assigned PCP 10/16/10 12/14/18 No Ref-Primary, Physician PCP - General 12/09/18 08/17/19 Tennille Goddard APRN .NET PROGRAMMER [address] [place] [address] PCP - Assigned PCP 12/15/18 01/21/19 Tennille Goddard APRN .NET PROGRAMMER [address] [place], [place] [phone] PCP - General Nurse Practitioner - Family 08/18/19 Tennille Goddard APRN .NET PROGRAMMER [address] [place] [address] Assigned PCP 12/15/18 01/07/22 Beatris Ty [facility] [address] [place] [address] Pharmacist Pharmacist 04/08/19 01/12/21 Dov Alston [facility] [address] [facility] [place] [address] Pharmacist Pharmacist 06/16/19 Dov Alston [facility] [address] [facility] [place] [address] Assigned MTM Pharmacist 04/15/22 08/04/22 Dov Alston [facility] [address] [address] [address] Assigned MTM Pharmacist 08/16/22 10/27/22 documented as of this encounter
--- OUTSIDE RECORDS SUMMARY | 2025-02-02 23:57 | XMS_ITS | Encounter Summary ---
Author Organization [facility] Address [address] [place] [address] Care Team Providers Care Apprentice Painter Neckties Name Role Phone Kelly Mendez APRN C.N.P., D.N.P. Primary Car e Provider Reason for Visit * Radiation Therapy (Routine) - Authorized Specialty Diagnoses / Procedures Referred By Juanito ayala Referred To Contact Diagnoses 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 Procedures Prior Auth Rad Tx HI IMRT COMPLEX HI GUIDANCE FOR LOC RAD TX HI IMRT RADIOTHERAPY PLAN IMRT Kiana Oliver M.D. [address] [place] [address] Phone: tel: fax: [facility] Rad[facility] On[facility] [place] [address] [place] [phone] Referral ID Status Reason Start Date Expiration Date V isits Requested Visits Authorized [id number] Authorized 12/22/2024 03/10/2026 15 30 Encounter Details Date Type Department Care Team (Late st Contact Info) Description 01/06/2025 12:37 PM UNLOADING CHECKER Hospital Encounter Department of Radiation Oncology in [place], [place] [address] [place] [phone] Kiana Oliver M.D. [address] [place] [phone] Social History Tobacco Use Types Packs/Day Years [...] week 02/04/2023 How often do you attend islam or scientologist serv ices? Patient declined 02/04/2023 Do you belong to any clubs o r organizations such as islam groups, unions, fraternal or athletic groups, or [...] 11/23/2024 [facility] of Occupat ional Health - Occupational Stress [...] AM CDT Legal Sex Male 9:11 PM UNLOADING CHECKER Gender Identity na 09/07/2021 10:32 AM CDT Sexual Orientation Choose not to disclose 2020 10:32 AM CDT documented as of this encounter Plan of Treatment Upcoming Encounters Date Type Department Care Team (Latest Contact Info) Description 02/03/2025 1:00 PM CDT Appointment Department of Radiation Oncology in [address] [address] Kiana Oliver M.D. [address] [place] [phone] 02/04/2025 1:00 PM CDT Appointment Department of Radiation Oncology in [address] [phone] Kiana Oliver M.D. [address] [place] [phone] 02/05/2025 12:45 PM CDT Appointment Department of Radiation Oncology in [address] [address] Kiana Oliver M.D. [address] [place] [phone] 02/05/2025 1:00 PM CDT Appointment Department of Radiation Oncology in [address] [address] Kiana Oliver M.D. [address] [place] [phone] 02/06/2025 1:00 PM CDT Appointment Department of Radiation Oncology in [address] [address] Kiana Oliver M.D. [address] [place] [phone] 02/09/2025 1:00 PM CDT Appointment Department of Radiation Oncology in [place], [place] [address] [place] [phone] Kiana Oliver M.D. [address] [place] [phone] 02/10/2025 1:00 PM CDT Appointment Department of Radiation Oncology in [place], [place] [address] [place] [phone] Kiana Oliver M.D. [address] [place] [phone] 02/11/2025 1:00 PM CDT Appointment Department of Radiation Oncology in [address] [address] Kiana Oliver M.D. [address] [place] [phone] 02/12/2025 1:00 PM CDT Appointment Department of Radiation Oncology in [address] [address] Kiana Oliver M.D. [address] [place] [phone] 02/12/2025 1:15 PM CDT Appointment Department of Radiation Oncology in [address] [address] Kiana Oliver M.D. [address] [place] [phone] 02/13/2025 1:00 PM CDT Appointment Department of Radiation Oncology in [address] [address] Kiana Oliver M.D. [address] [place] [phone] 02/16/2025 7:15 AM CDT Ancillary Procedure Department of Ophthalmology in [place], [place] [address] [place] [phone] Maida Tim O.D. [address] [place] [phone] 02/16/2025 8:00 AM CDT Comprehensive Visit Department of Ophthalmology in [place], [place] [address] [place] [phone] Desi Rasmussen O.D. [address] [place] [phone] 02/23/2025 8:15 AM CDT Clinical Communication Virtual Review in [place], [place] 200 [place] [address] 02/24/2025 9:40 AM CDT Office Visit Department of Dermatology in [address] [address] Felipe Stewart M.D. [address] [place] [phone] 02/24/2025 10:00 AM CDT Office Visit Jeyson milan [facility] for Transplantation and Clinical Regeneration in [place], [place] [address] [place] [phone] Aide Welch P.A.Willie., M.S. [address] [place] [phone] 03/03/2025 9:00 AM CDT Telemedicine Department of Nutrition and Diabetes Education in [address] [phone] Katelin Alcaraz, MARCUS, C.N.P., D.N.P. [address] [place] [phone] Mansi Ross M.S., RDN, LD [address] [place] [address] documented as of this encounter Visit Diagnoses Not on filedocumented in this encounter Additional Health Concerns Infection Onset Date Last Indicated Resolved Time Protective Environment 11/10/2023 11/10/2023 Assessment Noted Time PHQ-9 Depression Total Score: 19 025 12:23 PM UNLOADING CHECKER documented as of this encounter Care Teams Apprentice Painter Neckties Relationship Specialty Start Date End Date Kelly Mendez APRN, C.N.P., D.N.P. [address] [place] [phone] PCP - General Internal Medicine 12/05/23 [facility] [place] or [facility] lab Laboratory Medicine 02/26/23 documented as of this encounter
--- OUTSIDE RECORDS SUMMARY | 2025-02-02 23:57 | XMS_ITS | Encounter Summary ---
Author Organization [facility] Address [address] [place] [address] Care Team Providers Care Cardroom Plastic Card Grader Name Role Phone Wally Daniel MD Primary Care Provider Unavailable Wally Daniel MD Unavailable Unavai lable No Ref-Primary, Physician Primary Care Provider Tennille Goddard APRN DERIVATIVES TRADER Unavailable [phone] Tennille Goddard APRN DERIVATIVES TRADER Unavailable [phone] Beatris Ty [facility] Unavailable [phone] Dov Alston [facility] Unavailable Unavailable Tennille Goddard APRN DERIVATIVES TRADER Primary Care Provider + Dov Alston RP Unavailable Unavailable Dov Alston RP Unavailable Unavailable Reason for Visit * Reason Onset Date Comments MyChart Communication 07/27/2015 appt Encounter Details Date Type Department Care Team (Latest Contact Info) Description 07/27/2015 MyC Medical Advice [address] [address] Wally Daniel MD MyChart Communication [...] on file Legal Sex Male 3:09 AM DOCTOR CHIROPRACTIC Gender Identity Not on file Sexual Orientation [...] on filedocumented in this encounter Care Teams Cardroom Plastic Card Grader Relationship Specialty Start Date End Date Wally Daniel MD PCP - General 12/17/03 12/08/18 Wally Daniel MD PCP - Assigned PCP 10/16/10 12/14/18 No Ref-Primary, Physician PCP - General 12/09/18 08/17/19 Tennille Goddard APRN DERIVATIVES TRADER [address] [facility], [place] [phone] PCP - Assigned PCP 12/15/18 01/21/19 Tennille Goddard APRN DERIVATIVES TRADER [address] [place] [phone] PCP - General Nurse Practitioner - Family 08/18/19 Tennille Goddard APRN DERIVATIVES TRADER [address] [place] [address] Assigned PCP 12/15/18 01/07/22 Beatris Ty, [facility] [address] [facility] [place] [address] Pharmacist Pharmacist 04/08/19 01/12/21 Dov Alston [facility] [address] [place] [place] [address] Pharmacist Pharmacist 06/16/19 Dov Alston [facility] [address] [address] [place] [address] Assigned MTM Pharmacist 04/15/22 08/04/22 Dov Alston [facility] [address] [facility] [place] [address] Assigned [place] Pharmacist 08/16/22 10/27/22 documented as of this encounter
--- OUTSIDE RECORDS SUMMARY | 2025-02-02 23:57 | XMS_ITS | Encounter Summary ---
Author Organization [facility] Address [address] [place] [address] Care Team Providers Care Baseball Club Manager Name Role Phone Kelly Mendez APRN C.N.P., D.N.P. 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 [address] [place] [address] Phone: tel: fax: [facility] Region Referral ID Status Reason Start Date Expiration Date V isits Requested Visits Authorized [id number] Authorized 12/08/2024 03/10/2026 10 10 EYING CREW STAKE RUNNER Reason for Visit * Radiation Therapy (Routine) - Authorized Specialty Diagnoses / Procedures Referred By Juanito ayala Referred To Contact Diagnoses 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 Procedures Management Visit Kiana Oliver M.D. [address] [place] [address] Phone: tel: fax: [facility] Region Referral ID Status Reason Start Date Expiration Date V isits Requested Visits Authorized [id number] Authorized 12/08/2024 03/10/2026 10 10 Encounter Details Date Type Department Care Team (Latest Contact Info) Description 01/07/2025 12:56 PM SURVEYING CREW STAKE RUNNER - 01/07/2025 3:32 PM SURVEYING CREW STAKE RUNNER Hospital Encounter Department of Radiation Oncology in [place], [place] [address] [place] [address] Kevin Joseph M.D. [address] [place] [address] 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 Social History Tobacco Use Types Packs/Day Years Used Date Smoking Tobacco: Former Cigarettes Q uit: 2008 Passive Smoke Exposure: Never Smokeless Tobacco: Never Alcohol Use Standard Drinks/Week Comments Not Currently 0 (1 standard drink = 0.6 oz pur e alcohol) last 06/23/22 [facility] Utilities Answer Date Recorded In the past 12 months has e [employer], gas, oil, or water [employer] threatened to shut off services in your [...] week 02/04/2023 How often do you attend yazidi or church serv ices? Patient declined 02/04/2023 Do you belong to any clubs o r organizations such as yazidi groups, unions, fraternal or athletic groups, or [...] Answer Date Recorded PHQ-2 Score 6 11/23/2024 [facility] - Occupational Stress Questionnaire Answer Date [...] AM CDT Legal Sex Male 9:11 PM SURVEYING CREW STAKE RUNNER Gender Identity na 09/07/2021 10:32 AM CDT Sexual Orientation Choose not to disclose 2020 10:32 AM CDT documented as of this encounter Last Filed Vital Signs Vital Sign Reading Time Taken Comments Blood Pressure 115/77 01/07/2025 1:47 PM SURVEYING CREW STAKE RUNNER Pulse 114 01/07/2025 1:47 PM SURVEYING CREW STAKE RUNNER Temperature - - Respiratory Rate - - Oxygen Saturation - - Inhaled Oxygen Concentration - - Weight 51.6 kg (113 lb 12.1 oz) 01/07/2025 1:47 PM SURVEYING CREW STAKE RUNNER Height - - Body Mass Index 18.57 11/10/2024 1:00 PM SURVEYING CREW STAKE RUNNER documented in this encounter Medications at Time [...] diabetes control. 1 each 12/12/2023 11:05 AM SURVEYING CREW STAKE RUNNER 12/11/2023 calcium citrate-vitamin D3 (Citracal + D3) 315 mg-5 mcg (200 Unit) per tablet Take 1 tablet by mouth 2 (two) times a day with meals. 200 tablet 3 10/20/2024 10/20/20 25 famotidine (Pepcid) 20 mg tablet Take 1 tablet (20 mg total) by mouth 2 (two) times a day as needed for heartburn. 60 tablet 1 11/14/2024 12:18 PM SURVEYING CREW STAKE RUNNER 11/14/2024 fluoride, sodium, (PreviDent) 1.1 % gel [...] daily. 90 tablet 3 10/29/2024 11:46 AM SURVEYING CREW STAKE RUNNER 06/05/2024 gabapentin (NEURONTIN) 300 mg capsule Take 2 capsules (600 mg total) by mouth at bedtime. 04/07/2024 HYDROcodone-acetami nophen ([facility]) 7.5-325 mg per tabletIndications:C hronic Pain/Nonacute Pain [...] 911. 15 mL 2 11/14/2024 12:18 PM SURVEYING CREW STAKE RUNNER 11/14/2024 ondansetron ODT (Zofran-ODT) 4 mg disintegrating tablet Dissolve 1 tablet (4 mg total) in the mouth every 8 (eight) hours as needed for nausea or vomiting. 30 tablet 3 11/26/2024 3:29 PM SURVEYING CREW STAKE RUNNER 06/05/2024 pen needle, diabetic (BD Ultra-Fine Short Pen Needle) 31 gauge x 5/16 needle Use 3 times a day 300 each 1 11/14/2024 12:18 PM SURVEYING CREW STAKE RUNNER 11/14/2024 rOPINIRole (Requip) 0.25 mg tabletIndications:R estless Leg Syndrome Take 2 tablets (0.5 mg total) by mouth at bedtime as needed (RLS). 30 tablet 11/26/2024 3:29 PM SURVEYING CREW STAKE RUNNER 11/13/2024 rosuvastatin (Crestor) 5 mg tablet Take 1 tablet (5 mg total) by mouth daily. 90 tablet 3 12/29/2024 1:25 PM SURVEYING CREW STAKE RUNNER 06/05/2024 sennosides-docusate sodium (Stool Softener-Stimulant Laxat) 8.6-50 mg per tabletIndications:T ransplant Liver (HCC),Medication Therapy Glue Maker Not Anticoagulant,Drug Induced Constipation Take 1 tablet by mouth 2 (two) times a day. 100 tablet 02/22/2024 5:09 PM CDT 02/22/2024 tacrolimus (Prograf) 1 mg capsuleIndications: Transplant Liver (HCC),Medication Therapy Nursing Home Not Anticoagulant Take 2 capsules (2 mg total) by mouth 2 (two) times a day. 01/01 dose change 360 capsule 3 01/01/2025 01/01/20 26 blood-glucose sensor (FreeStyle Apryl 3 Sensor) deviceIndications:D iabetes Mellitus Type 2 Hyperglycemia (HCC) 1 each every 14 (fourteen) days. 6 each 3 11/26/2024 3:29 PM SURVEYING CREW STAKE RUNNER 09/04/2024 01/29/20 25 insulin glargine 100 unit/mL [...] Parts Face SUPERVISED BY: Kevin Joseph M.D. ([id number]) HISTORY OF PRESENT ILLNESS Mr. Kevin Perry is a 64 y.o. adult with squamous cell carcinoma who underwent Mohs micrographicsurgery on November 24, 2024. He is currently undergoing radiation therapy. Treatment Course: 1xHead Plan ID Fractions Dose / Fraction (cGy) Dose Treated (cGy) Dose Planned (cGy) First Treatment Last Treatment Elapsed Days [id number] 01/05/2025 01/07/2025 2 Course Summary 01/05/2025 01/07/2025 [...] by: Karma Barcenas R.N. 01/07/2025 2:13 PM SURVEYING CREW STAKE RUNNER I saw and evaluated the patient and [...] by: Kevin Joseph M.D. 01/07/2025 3:32 PM SURVEYING CREW STAKE RUNNER [facility] [address] [place] [address] EYING CREW STAKE RUNNER documented in this encounter Plan of Treatment Upcoming Encounters Date Type Department Care Team (Latest Contact Info) Description 02/03/2025 1:00 PM CDT Appointment Department of Radiation Oncology in [address] [address] Kiana Oliver M.D. [address] [place] [phone] 02/04/2025 1:00 PM CDT Appointment Department of Radiation Oncology in [address] [address] Kiana Oliver M.D. [address] [place] [phone] 02/05/2025 12:45 PM CDT Appointment Department of Radiation Oncology in [address] [address] Kiana Oliver M.D. [address] [place] [phone] 02/05/2025 1:00 PM CDT Appointment Department of Radiation Oncology in [address] [place] [address] Kiana Oliver M.D. [address] [place] [phone] 02/06/2025 1:00 PM CDT Appointment Department of Radiation Oncology in [place], [place] [address] [place] [phone] Kiana Oliver M.D. [address] [place] [address] 02/09/2025 1:00 PM CDT Appointment Department of Radiation Oncology in [address] [address] Kiana Oliver M.D. [address] [place] [phone] 02/10/2025 1:00 PM CDT Appointment Department of Radiation Oncology in [place], [place] [address] [place] [address] Kiana Oliver M.D. [address] [place] [phone] 02/11/2025 1:00 PM CDT Appointment Department of Radiation Oncology in [place], [place] [address] [place] [address] Kiana Oliver M.D. 200 [place] [address] 02/12/2025 1:00 PM CDT Appointment Department of Radiation Oncology in [address] [address] Kiana Oliver M.D. 200 [place] [phone] 02/12/2025 1:15 PM CDT Appointment Department of Radiation Oncology in [place], [place] [address] [place] [address] Kiana Oliver M.D. [address] [place] [phone] 02/13/2025 1:00 PM CDT Appointment Department of Radiation Oncology in [place], [place] [address] [place] [address] Kiana Oliver M.D. [address] [place] [phone] 02/16/2025 7:15 AM CDT Ancillary Procedure Department of Ophthalmology in [place], [place] [address] [place] [phone] Maida Tim O.D. [address] [place] [phone] 02/16/2025 8:00 AM CDT Comprehensive Visit Department of Ophthalmology in [place], [place] [address] [place] [phone] Desi Rasmussen O.D. [address] [place] [phone] 02/23/2025 8:15 AM CDT Clinical Communication Virtual Review in [place], [place] 200 [place] [address] 02/24/2025 9:40 AM CDT Office Visit Department of Dermatology in [place], [place] [address] [place] [phone] Felipe Stewart M.D. [address] [place] [phone] 02/24/2025 10:00 AM CDT Office Visit Jeyson RubyKathrin milan [facility] for Transplantation and Clinical Regeneration in [place], [place] [address] [place] [phone] Aide Welch P.A.-C., M.S. [address] [place] [address] 03/03/2025 9:00 AM CDT Telemedicine Department of Nutrition and Diabetes Education in [place], [place] [address] [place] [phone] Katelin Alcaraz APRN, C.N.P., D.N.P. [address] [place] [phone] aMnsi Ross M.S., RDN, LD [address] [place] [phone] Scheduled Orders Name Type Priority Associated Diagnoses [...] Depression Total Score: 19 025 12:23 PM SURVEYING CREW STAKE RUNNER documented as of this encounter Care Teams Baseball Club Manager Relationship Specialty Start Date End Date Kelly Mendez APRN, C.N.P., D.N.P. [address] [place] [address] PCP - General Internal Medicine 12/05/23 [facility] [place] or Anabel [facility] lab Laboratory Medicine 02/26/23 documented as of this encounter
--- OUTSIDE RECORDS SUMMARY | 2025-02-02 23:57 | XMS_ITS | Encounter Summary ---
Author Organization [facility] Address [address] [place] [address] Care Team Providers Care Oracle Engineer Name Role Phone Kelly Mendez APRN C.N.P., D.N.P. Primary Car e Provider Encounter Details Date Type Department Care Team (Latest Contact Info) Description 12/08/2024 Clinical Communication Division of Endocrinology in [place], [place] [address] [place] [address] Provider, Unknown Social History Tobacco Use Types Packs/Day Years Used Date Smoking Tobacco: Former Cigarettes Q uit: 2008 Passive Smoke Exposure: Never Smokeless Tobacco: Never Alcohol Use Standard Drinks/Week Comments Not Currently 0 (1 standard drink = 0.6 oz pur e alcohol) last 06/23/22 [facility] Utilities Answer Date Recorded In the past 12 months has [employer] oil, or water [employer] threatened to shut off services in your [...] How often do you attend holiness or anabaptism serv ices? Patient declined 02/04/2023 Do you [...] Answer Date Recorded PHQ-2 Score 6 11/23/2024 [facility] of Occupat ional Health - Occupational Stress [...] AM CDT Legal Sex Male 9:11 PM ORTHOPEDIC TECHNICIAN Gender Identity na 09/07/2021 10:32 AM CDT Sexual Orientation Choose not to disclose 2020 10:32 AM CDT documented as of this encounter Plan of Treatment Upcoming Encounters Date Type Department Care Team (Latest Contact Info) Description 02/03/2025 1:00 PM CDT Appointment Department of Radiation Oncology in [place] [address] [place] [address] Kiana Oliver M.D. 200 [place] [address] 02/04/2025 1:00 PM CDT Appointment Department of Radiation Oncology in [place] [address] [place] [address] Kiana Oliver M.D. 200 [place] [address] 02/05/2025 12:45 PM CDT Appointment Department of Radiation Oncology in [address] [address] Kiana Oliver M.D. [address] [place] [phone] 02/05/2025 1:00 PM CDT Appointment Department of Radiation Oncology in [address] [address] Kiana Oliver M.D. [address] [place] [phone] 02/06/2025 1:00 PM CDT Appointment Department of Radiation Oncology in [address] [address] Kiana Oliver M.D. [address] [place] [phone] 02/09/2025 1:00 PM CDT Appointment Department of Radiation Oncology in [address] [address] Kiana Oliver M.D. [address] [place] [phone] 02/10/2025 1:00 PM CDT Appointment Department of Radiation Oncology in [address] [address] Kiana Oliver M.D. [address] [place] [phone] 02/11/2025 1:00 PM CDT Appointment Department of Radiation Oncology in [address] [address] Kiana Oliver M.D. [address] [place] [phone] 02/12/2025 1:00 PM CDT Appointment Department of Radiation Oncology in [place], [place] [address] [place] [address] Kiana Oliver M.D. [address] [place] [address] 02/12/2025 1:15 PM CDT Appointment Department of Radiation Oncology in [place], [place] [address] [place] [phone] Kiana Oliver M.D. [address] [place] [phone] 02/13/2025 1:00 PM CDT Appointment Department of Radiation Oncology in [place], [place] [address] [place] [address] Kiana Oliver M.D. [address] [place] [phone] 02/16/2025 7:15 AM CDT Ancillary Procedure Department of Ophthalmology in [place], [place] [address] [place] [phone] Maida Tim O.D. [address] [place] [phone] 02/16/2025 8:00 AM CDT Comprehensive Visit Department of Ophthalmology in [place], [place] [address] [place] [phone] Desi Rasmussen O.D. [address] [place] [phone] 02/23/2025 8:15 AM CDT Clinical Communication Virtual Review in [place], [place] 200 [place] [address] 02/24/2025 9:40 AM CDT Office Visit Department of Dermatology in [place], [place] [address] [place] [phone] Felipe Stewart M.D. [address] [place] [phone] 02/24/2025 10:00 AM CDT Office Visit Jeyson Kevin [facility] for Transplantation and Clinical Regeneration in [place], [place] [address] [place] [phone] Aide Welch P.A.-C., M.S. [address] [place] [phone] 03/03/2025 9:00 AM CDT Telemedicine Department of Nutrition and Diabetes Education in [address] [address] Katelin Alcaraz APRN, C.N.P., D.N.P. [address] [place] [phone] Mansi Ross M.S., RDN, LD [address] [place] [phone] documented as of this encounter Visit Diagnoses Not on filedocumented in this encounter Additional Health Concerns Infection Onset Date Last Indicated Resolved Time Protective Environment 11/10/2023 11/10/2023 Assessment Noted Time PHQ-9 Depression Total Score: 19 11/23/ 025 12:23 PM ORTHOPEDIC TECHNICIAN documented as of this encounter Care Teams Oracle Engineer Relationship Specialty Start Date End Date Kelly Mendez APRN, C.N.P., D.N.P. [address], [place] [phone] PCP - General Internal Medicine 12/05/23 [facility] Rhea Little [facility] lab Laboratory Medicine 02/26/23 documented as of this encounter
--- OUTSIDE RECORDS SUMMARY | 2025-02-02 23:57 | XMS_ITS | Encounter Summary ---
Author Organization [facility] Address [address] [place] [address] Care Team Providers Care Enterprise Sales Person Name Role Phone Kelly Mendez APRN C.N.P., D.N.P. Primary Car e Provider Reason for Visit * Radiation Therapy (Routine) - Authorized Specialty Diagnoses / Procedures Referred By Juanito ayala Referred To Contact Diagnoses 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 Procedures Prior Auth Rad Tx AK IMRT COMPLEX AK GUIDANCE FOR LOC RAD TX AK IMRT RADIOTHERAPY PLAN IMRT Kiana Oliver M.D. 200 [place] [address] Phone: tel: fax: [facility] Radiation Oncology at [place] [address] [place] [phone] Referral ID Status Reason Start Date Expiration Date V isits Requested Visits Authorized [id number] Authorized 12/22/2024 03/10/2026 15 30 Encounter Details Date Type Department Care Team (Late st Contact Info) Description 01/07/2025 12:56 PM QUILL COLLECTOR Hospital Encounter Department of Radiation Oncology in [address] [phone] Kiana Oliver M.D. [address] [place] [phone] Social History Tobacco Use Types Packs/Day Years Used Date Smoking Tobacco: Former Cigarettes Q uit: 2008 Passive Smoke Exposure: Never Smokeless Tobacco: Never Alcohol Use Standard Drinks/Week Comments Not Currently 0 (1 standard drink = 0.6 oz pur e alcohol) last 06/23/22 [facility] Utilities Answer Date Recorded In [...] week 02/04/2023 How often do you attend confucianism or adventist serv ices? Patient declined 02/04/2023 Do you belong to any clubs o r organizations such as confucianism groups, unions, fraternal or athletic groups, or [...] Answer Date Recorded PHQ-2 Score 6 11/23/2024 [facility] - Occupational [...] AM CDT Legal Sex Male 9:11 PM QUILL COLLECTOR Gender Identity na 09/07/2021 10:32 AM CDT Sexual Orientation Choose not to disclose 2020 10:32 AM CDT documented as of this encounter Plan of Treatment Upcoming Encounters Date Type Department Care Team (Latest Contact Info) Description 02/03/2025 1:00 PM CDT Appointment Department of Radiation Oncology in [address] [address] Kiana Oliver M.D. [address] [place] [phone] 02/04/2025 1:00 PM CDT Appointment Department of Radiation Oncology in [address] [address] Kiana Oliver M.D. [address] [place] [phone] 02/05/2025 12:45 PM CDT Appointment Department of Radiation Oncology in [address] [address] Kiana Oliver M.D. [address] [place] [phone] 02/05/2025 1:00 PM CDT Appointment Department of Radiation Oncology in [address] [address] Kiana Oliver M.D. [address] [place] [phone] 02/06/2025 1:00 PM CDT Appointment Department of Radiation Oncology in [address] [address] Kiana Oliver M.D. [address] [place] [phone] 02/09/2025 1:00 PM CDT Appointment Department of Radiation Oncology in [place], [place] [address] [place] [phone] Kiana Oliver M.D. [address] [place] [phone] 02/10/2025 1:00 PM CDT Appointment Department of Radiation Oncology in [place], [place] [address] [place] [phone] Kiana Oliver M.D. [address] [place] [phone] 02/11/2025 1:00 PM CDT Appointment Department of Radiation Oncology in [address] [address] Kiana Oliver M.D. [address] [place] [phone] 02/12/2025 1:00 PM CDT Appointment Department of Radiation Oncology in [address] [address] Kiana Oliver M.D. [address] [place] [phone] 02/12/2025 1:15 PM CDT Appointment Department of Radiation Oncology in [address] [address] Kiana Oliver M.D. [address] [place] [phone] 02/13/2025 1:00 PM CDT Appointment Department of Radiation Oncology in [address] [address] Kiana Oliver M.D. [address] [place] [phone] 02/16/2025 7:15 AM CDT Ancillary Procedure Department of Ophthalmology in [place], [place] [address] [place] [phone] Maida Tim O.D. [address] [place] [phone] 02/16/2025 8:00 AM CDT Comprehensive Visit Department of Ophthalmology in [place], [place] [address] [place] [phone] Desi Rasmussen O.D. [address] [place] [phone] 02/23/2025 8:15 AM CDT Clinical Communication Virtual Review in [place], [place] 200 [place] [address] 02/24/2025 9:40 AM CDT Office Visit Department of Dermatology in [address] [address] Felipe Stewart M.D. [address] [place] [phone] 02/24/2025 10:00 AM CDT Office Visit Jeyson milan [facility] in [place], [place] [address] [place] [phone] Aide Welch P.A.Willie., M.S. [address] [place] [phone] 03/03/2025 9:00 AM CDT Telemedicine Department of Nutrition and Diabetes Education in [address] [phone] Katelin Alcaraz, MARCUS, C.N.P., D.N.P. [address] [place] [phone] Mansi Ross M.S., RDN, LD [address] [place] [address] documented as of this encounter Visit Diagnoses Not on filedocumented in this encounter Additional Health Concerns Infection Onset Date Last Indicated Resolved Time Protective Environment 11/10/2023 11/10/2023 Assessment Noted Time PHQ-9 Depression Total Score: 19 025 12:23 PM QUILL COLLECTOR documented as of this encounter Care Teams Enterprise Sales Person Relationship Specialty Start Date End Date Klely Mendez APRN, C.N.P., D.N.P. [address] [place] [phone] PCP - General Internal Medicine 12/05/23 [facility] Leo or Anabel [facility] lab Laboratory Medicine 02/26/23 documented as of this encounter
--- OUTSIDE RECORDS SUMMARY | 2025-02-02 23:58 | XMS_ITS | Encounter Summary ---
Author Organization [facility] Address [address] [place] [address] Care Team Providers Care Stamping Mill Tender Name Role Phone Kelly Mendez APRN C.N.PKathrin, D.N.P. Primary Car e Provider Reason for Referral * Transplant (Routine) - Authorized Specialty Diagnoses / Procedures Referred By Juanito ayala Referred To Contact Transplant Diagnoses Transplant Liver (HCC) Medication Therapy Mcc Not Anticoagulant Aide Welch P.A.-C., M.S. [address] [place] [address] Phone: tel: fax: [facility] Referral ID Status Reason Start Date Expiration Date V isits Requested Visits Authorized [id number] Authorized 01/01/2025 07/03/2026 1 1 UNITY DEVELOPMENT COORDINATOR * Transplant (Routine) - Closed Specialty Diagnoses / Procedures Referred By Juanito ayala Referred To Contact Transplant Diagnoses Transplant Liver (HCC) Medication Therapy Artistic Associate Not Anticoagulant Aide Welch P.A.-C., M.S. [address] [place] [address] Phone: tel: fax: [facility] Referral ID Status Reason Start Date Expiration Date Visits Re quested Visits Authorized [id number] Closed 01/01/2025 07/03/2026 1 1 UNITY DEVELOPMENT COORDINATOR Reason for Visit * Reason Onset Date Comments Labs Only 12/30/2024 Encounter Details Date Type Department Care Team (Latest Contact Info) Description 12/30/2024 Clinical Communication Jeyson Brown [facility] in [place], [place] [address] [place] [address] Christy Abad R.N., C.C.T.C. [address] [place] [address] Labs Only Social History Tobacco Use Types Packs/Day Years Used Date Smoking Tobacco: Former Cigarettes Q uit: 2008 Passive Smoke Exposure: Never Smokeless Tobacco: Never Alcohol Use Standard Drinks/Week Comments Not Currently 0 (1 standard drink = 0.6 oz pur e alcohol) last 06/23/22 [facility] Utilities Answer Date Recorded In the past 12 months has e [employer], gas, oil, or water [employer] threatened to shut off services in your [...] week 02/04/2023 How often do you attend jewish or judaism serv ices? Patient declined 02/04/2023 Do you belong to any clubs o r organizations such as jewish groups, unions, fraternal or athletic groups, or [...] Answer Date Recorded PHQ-2 Score 6 11/23/2024 [facility] - [facility] Questionnaire Answer Date [...] AM CDT Legal Sex Male 9:11 PM COMMUNITY DEVELOPMENT COORDINATOR Gender Identity na 09/07/2021 10:32 AM CDT [...] decrease. We will do labs next in [place]. He will be trialing a new tube feeding formula. He will be starting radiation next week for 6 weeksto the head and neck. PLAN Disposition/Recommendation: as above Information/Education: patient/caller able to teach back Caller agreeable to plan of care: yes The following references were used: nursing clinical judgement and Dr. Shetty and Dr. Virk UNITY DEVELOPMENT COORDINATOR UNITY DEVELOPMENT COORDINATOR * Telephone Encounter - Christy Abad R.N., [...] C.C.T.C. *All labs are now found in [facility] - Flowsheets. For further review of labs, please review thereor under Synopsis* UNITY DEVELOPMENT COORDINATOR documented in this encounter Plan of Treatment Upcoming Encounters Date Type Department Care Team (Latest Contact Info) Description 02/03/2025 1:00 PM CDT Appointment Department of Radiation Oncology in [address] [address] Kiana Oliver M.D. [address] [place] [phone] 02/04/2025 1:00 PM CDT Appointment Department of Radiation Oncology in [address] [phone] Kiana Oliver M.D. [address] [place] [phone] 02/05/2025 12:45 PM CDT Appointment Department of Radiation Oncology in [address] [phone] Kiana Oliver M.D. [address] [place] [phone] 02/05/2025 1:00 PM CDT Appointment Department of Radiation Oncology in [address] [address] Kiana Oliver M.D. [address] [place] [phone] 02/06/2025 1:00 PM CDT Appointment Department of Radiation Oncology in [address] [address] Kiana Oliver M.D. [address] [place] [phone] 02/09/2025 1:00 PM CDT Appointment Department of Radiation Oncology in [address] [address] Kiana Oliver M.D. [address] [place] [phone] 02/10/2025 1:00 PM CDT Appointment Department of Radiation Oncology in [address] [address] Kiana Oliver M.D. [address] [place] [phone] 02/11/2025 1:00 PM CDT Appointment Department of Radiation Oncology in [address] [address] Kiana Oliver M.D. [address] [place] [phone] 02/12/2025 1:00 PM CDT Appointment Department of Radiation Oncology in [address] [address] Kiana Oliver M.D. [address] [place] [phone] 02/12/2025 1:15 PM CDT Appointment Department of Radiation Oncology in [address] [address] Kiana Oliver M.D. [address] [place] [phone] 02/13/2025 1:00 PM CDT Appointment Department of Radiation Oncology in [address] [address] Kiana Oliver M.D. [address] [place] [phone] 02/16/2025 7:15 AM CDT Ancillary Procedure Department of Ophthalmology in [address] [phone] Maida Tim O.D. [address] [place] [phone] 02/16/2025 8:00 AM CDT Comprehensive Visit Department of Ophthalmology in [address] [phone] Desi Rasmussen O.D. [address] [place] [phone] 02/23/2025 8:15 AM CDT Clinical Communication Virtual Review in [place], [place] 200 [place] [phone] 02/24/2025 9:40 AM CDT Office Visit Department of Dermatology in [address] [phone] Felipe Stewart M.D. [address] [place] [phone] 02/24/2025 10:00 AM CDT [facility] in [address] [phone] Aide Welch P.Aaron.-C., M.S. [address] [place] [phone] 03/03/2025 9:00 AM CDT Telemedicine Department of Nutrition and Diabetes Education in [address] [address] AlcarazKatelin abraham APRN C.N.P., D.N.P. [address] [place] [address] Mansi Ross M.S., RDN, LD [address] [place] [address] Scheduled Referrals Name Type Priority Associated Diagnoses Orde r Schedule Transplant Liver office visit (clinic) Outpatient Referral Routine Transplant Liver (HCC) Medication Therapy Artistic Associate Not Anticoagulant Expected: 01/05/2025 (Approximate), Expires: 03/31/2026 Transplant Liver office visit (clinic) Outpatient Referral Routine Transplant Liver (HCC) Medication Therapy Mcc Not Anticoagulant Expected: 02/24/2025, Expires: 03/31/2026 documented as of this encounter Visit Diagnoses Diagnosis Transplant Liver (HCC)- Primary Medication Therapy Mcc Not Anticoagulant documented in this encounter Additional Health Concerns Infection Onset Date Last Indicated Resolved Time Protective Environment 11/10/2023 11/10/2023 Assessment Noted Time PHQ-9 Depression Total Score: 19 025 12:23 PM COMMUNITY DEVELOPMENT COORDINATOR documented as of this encounter Care Teams Stamping Mill Tender Relationship Specialty Start Date End Date Kelly Mendez APRN, C.N.P., D.N.P. [address] [place] [phone] PCP - General Internal Medicine 12/05[facility]23 [facility] [place] [facility] lab Laboratory Medicine 02/26/23 documented as of this encounter
--- OUTSIDE RECORDS SUMMARY | 2025-02-02 23:58 | XMS_ITS | Encounter Summary ---
Author Organization [facility] Address [address] [place] [address] Care Team Providers Care Unified Communications Architect Name Role Phone Kelly Mendez APRN [...] 0.6 oz pur e alcohol) last 06/23/22 [facility] Utilities Answer Date Recorded In the past 12 months has [facility] [employer], gas, oil, or water [employer] threatened to shut off services in your [...] week 02/04/2023 How often do you attend congregation or holiness serv ices? Patient declined 02/04/2023 Do you belong to any clubs o r organizations such as congregation groups, unions, fraternal or athletic groups, or [...] Answer Date Recorded PHQ-2 Score 6 11/23/2024 [facility]at ional [facility] - [...] AM CDT Legal Sex Male 9:11 PM PERFORATOR OPERATOR OIL WELL Gender Identity na 09/07/2021 10:32 AM CDT Sexual Orientation Choose not to disclose 2020 10:32 AM CDT documented as of this encounter Plan of Treatment Upcoming Encounters Date Type Department Care Team (Latest Contact Info) Description 02/03/2025 1:00 PM CDT Appointment Department of Radiation Oncology in [address] [address] Kiana Oliver M.D. 200 [place] [address] 02/04/2025 1:00 PM CDT Appointment Department of Radiation Oncology in [place] [address] [place] [address] Kiana Oliver M.D. 200 [place] [address] 02/05/2025 12:45 PM CDT Appointment Department of Radiation Oncology in [place], [place] [address] [place] [phone] Kiana Oliver M.D. [address] [place] [phone] 02/05/2025 1:00 PM CDT Appointment Department of Radiation Oncology in [place], [place] [address] [place] [phone] Kiana Oliver M.D. [address] [place] [phone] 02/06/2025 1:00 PM CDT Appointment Department of Radiation Oncology in [address] [address] Kiana Oliver M.D. [address] [place] [phone] 02/09/2025 1:00 PM CDT Appointment Department of Radiation Oncology in [place], [place] [address] [place] [phone] Kiana Oliver M.D. [address] [place] [phone] 02/10/2025 1:00 PM CDT Appointment Department of Radiation Oncology in [place], [place] [address] [place] [phone] Kiana Oliver M.D. [address] [place] [phone] 02/11/2025 1:00 PM CDT Appointment Department of Radiation Oncology in [place], [place] [address] [place] [address] Kiana Oliver M.D. [address] [place] [phone] 02/12/2025 1:00 PM CDT Appointment Department of Radiation Oncology in [place], [place] [address] [place] [address] Kiana Oliver M.D. [address] [place] [phone] 02/12/2025 1:15 PM CDT Appointment Department of Radiation Oncology in [place], [place] [address] [place] [address] Kiana Oliver M.D. [address] [place] [phone] 02/13/2025 1:00 PM CDT Appointment Department of Radiation Oncology in [place], [place] [address] [place] [address] Kiana Oliver M.D. [address] [place] [phone] 02/16/2025 7:15 AM CDT Ancillary Procedure Department of Ophthalmology in [place], [place] [address] [place] [phone] Maida Tim O.D. [address] [place] [phone] 02/16/2025 8:00 AM CDT Comprehensive Visit Department of Ophthalmology in [place], [place] [address] [place] [phone] Desi Rasmussen O.D. [address] [place] [phone] 02/23/2025 8:15 AM CDT Clinical Communication Virtual Review in [place], [place] 200 [place] [address] 02/24/2025 9:40 AM CDT Office Visit Department of Dermatology in [place], [place] [address] [place] [phone] Felipe Stewart M.D. [address] [place] [phone] 02/24/2025 10:00 AM CDT [facility] in [place], [place] [address] [place] [phone] Aide Welch P.A.-C., M.S. [address] [place] [phone] 03/03/2025 9:00 AM CDT Telemedicine Department of Nutrition and Diabetes Education in [place], [place] [address] [place] [phone] Katelin Alcaraz, MARCUS, C.N.P., D.N.P. [address] [place] [phone] Mansi Ross M.S., RDN, LD [address] [place] [phone] documented as of this encounter Procedures Procedure Name Priority Date/Time Associated Diagnosis Comments DERMATOLOGY IMAGE EXAM Routine 12/19/2024 12:00 AM PERFORATOR OPERATOR OIL WELL documented in this encounter Results * [facility] Image Exam (12/19/2024 12:00 AM PERFORATOR OPERATOR OIL WELL) Narrative IIDE - 12/19/2024 2:58 PM PERFORATOR OPERATOR OIL WELL This order has been created and auto-finalized to support the import of images acquired without order. The clinical documentation to support these images can be found on the encounter that produced images. us Provider Not In System IMG NON RAD IMAGING PROCE DURES Final Result IIDE NA documented in this encounter Visit Diagnoses Not on filedocumented in this encounter Additional Health Concerns Infection Onset Date Last Indicated Resolved Time Protective Environment 11/10/2023 11/10/2023 Assessment Noted Time PHQ-9 Depression Total Score: 19 025 12:23 PM PERFORATOR OPERATOR OIL WELL documented as of this encounter Care Teams Unified Communications Architect Relationship Specialty Start Date End Date Kelly Mendez APRN, C.N.P., D.N.P. [address] [place] [phone] PCP - General Internal Medicine 12/05/23 R[facility] [place] or Anabel [facility] lab Laboratory Medicine 02/26/23 documented as of this encounter
--- OUTSIDE RECORDS SUMMARY | 2025-02-02 23:58 | XMS_ITS | Encounter Summary ---
Author Organization [facility] Address [address] [place] [address] Care Team Providers Care Environmental Advisor Name Role Phone Kelly Mendez APRN, C.N.Jose, D.N.P. Primary Car e Provider Encounter Details Date Type Department Care Team (Late st Contact Info) Description 12/15/2024 Clinical Communication Department of Dental Specialties in [place], [place] [address] [place] [address] Ni Waite D.D.S. [address] [place] [address] Social History Tobacco Use Types Packs/Day Years Used Date Smoking Tobacco: Former Cigarettes Q uit: 2008 Passive Smoke Exposure: Never Smokeless Tobacco: Never Alcohol Use Standard Drinks/Week Comments Not Currently 0 (1 standard drink = 0.6 oz pur e alcohol) last 06/23/22 [facility] Utilities Answer Date Recorded In the [...] week 02/04/2023 How often do you attend yazidism or gnosticist serv ices? Patient declined 02/04/2023 Do you belong to any clubs o r organizations such as yazidism groups, unions, fraternal or athletic groups, or [...] [facility] [...] AM CDT Legal Sex Male 9:11 PM CONTENT ENGINEER Gender Identity na 09/07/2021 10:32 AM CDT Sexual Orientation Choose not to disclose 2020 10:32 AM CDT documented as of this encounter Plan of Treatment Upcoming Encounters Date Type Department Care Team (Latest Contact Info) Description 02/03/2025 1:00 PM CDT Appointment Department of Radiation Oncology in [place], [place] [address] [place] [address] [place] [address] 02/04/2025 1:00 PM CDT Appointment Department of Radiation Oncology in [place], [place] [address] [place] [address] Kiana Oliver M.D. [address] [place] [phone] 02/05/2025 12:45 PM CDT Appointment Department of Radiation Oncology in [place], [place] [address] [place] [phone] Kiana Oliver M.D. [address] [place] [phone] 02/05/2025 1:00 PM CDT Appointment Department of Radiation Oncology in [place], [place] [address] [place] [address] Kiana Oliver M.D. [address] [place] [phone] 02/06/2025 1:00 PM CDT Appointment Department of Radiation Oncology in [place], [place] [address] [place] [phone] Kiana Oliver M.D. [address] [place] [phone] 02/09/2025 1:00 PM CDT Appointment Department of Radiation Oncology in [place], [place] [address] [place] [phone] Kiana Oliver M.D. [address] [place] [phone] 02/10/2025 1:00 PM CDT Appointment Department of Radiation Oncology in [address] [address] Kiana Oliver M.D. [address] [place] [phone] 02/11/2025 1:00 PM CDT Appointment Department of Radiation Oncology in [place], [place] [address] [place] [phone] Kiana Oliver M.D. [address] [place] [phone] 02/12/2025 1:00 PM CDT Appointment Department of Radiation Oncology in [place], [place] [address] [place] [address] Kiana Oliver M.D. [address] [place] [phone] 02/12/2025 1:15 PM CDT Appointment Department of Radiation Oncology in [place], [place] [address] [place] [phone] Kiana Oliver M.D. [address] [place] [phone] 02/13/2025 1:00 PM CDT Appointment Department of Radiation Oncology in [place], [place] [address] [place] [address] Kiana Oliver M.D. [address] [place] [phone] 02/16/2025 7:15 AM CDT Ancillary Procedure Department of Ophthalmology in [place], [place] [address] [place] [phone] Maida Tim O.D. [address] [place] [phone] 02/16/2025 8:00 AM CDT Comprehensive Visit Department of Ophthalmology in [place], [place] [address] [place] [address] Desi Rasmussen O.D. [address] [place] [phone] 02/23/2025 8:15 AM CDT Clinical Communication Virtual Review in [place], [place] [address] [place] [address] 02/24/2025 9:40 AM CDT Office Visit Department of Dermatology in [place], [place] [address] [place] [phone] Felipe Stewart M.D. [address] [place] [phone] 02/24/2025 10:00 AM CDT Office Visit Jeyson milan [facility] in [place], [place] [address] [place] [phone] Aide Welch P.A.-C., M.S. [address] [place] [phone] 03/03/2025 9:00 AM CDT Telemedicine Department of Nutrition and Diabetes Education in [address] [address] Katelin Alcaraz APRN, C.N.P., D.N.P. [address] [place] [phone] Mansi Ross M.S., RDN, LD [address] [place] [phone] documented as of this encounter Visit Diagnoses Not on filedocumented in this encounter Additional Health Concerns Infection Onset Date Last Indicated Resolved Time Protective Environment 11/10/2023 11/10/2023 Assessment Noted Time PHQ-9 Depression Total Score: 19 11/23/ 025 12:23 PM CONTENT ENGINEER documented as of this encounter Care Teams Environmental Advisor Relationship Specialty Start Date End Date Kelly Mendez APRN, C.N.P., D.N.P. [address] [place] [address] PCP - General Internal Medicine 12/05/23 [place] [facility] Lab [place] or Anabel [facility] lab Laboratory Medicine 02/26/23 documented as of this encounter
--- OUTSIDE RECORDS SUMMARY | 2025-02-02 23:58 | XMS_ITS | Encounter Summary ---
Author Organization [facility] Address [address] [place] [address] Care Team Providers Care Operator Supply Name Role Phone Kelly Mendez APRN C.N.PKathrin, D.N.P. Primary Car e Provider Reason for Referral * Outpatient (Routine) - Closed Specialty Diagnoses / Procedures Referred By Contac t Referred To Contact Radiation Oncology Veronica Parada P.A.-C., M.SKathrin [address] [place] [phone] Phone: tel: fax: Kiana Oliver M.D. [address] [place] [phone] Phone: tel: fax: Referral ID Status Reason Start Date Expiration Date Visits Re quested Visits Authorized [id number] Closed 12/11/2024 06/12/2026 1 1 Scheduling Instructions With sim HOUSE ORDER PULLER Reason for Visit * Outpatient (Routine) - Closed Specialty Diagnoses / Procedures Referred By Contac t Referred To Contact Radiation Oncology Veronica Parada P.A.-C., M.S. [address] [place] [phone] Phone: tel: fax: Kiana Oliver M.D. 200 [place] [address] Phone: tel: fax: Referral ID Status Reason Start Date Expiration Date Visits Re quested Visits Authorized [id number] Closed 12/11/2024 06/12/2026 1 1 Encounter Details Date Type Department Care Team (Latest Contact Info) Description 12/23/2024 12:09 PM WAREHOUSE ORDER PULLER - 12/23/2024 12:47 PM WAREHOUSE ORDER PULLER Hospital Encounter Department of Radiation Oncology in [place], [place] [address] [place] [address] Kiana Oliver M.D. 200 [place] [phone] 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 (Primary Dx) Social History Tobacco Use Types Packs/Day Years Used Date Smoking Tobacco: Former Cigarettes Q uit: 2008 Passive Smoke Exposure: Never Smokeless Tobacco: Never Alcohol Use Standard Drinks/Week Comments Not Currently 0 (1 standard drink = 0.6 oz pur e alcohol) last 06/23/22 [facility] Utilities Answer Date Recorded In the past 12 months has e [employer], gas, oil, or water [employer] threatened to shut off services in [...] week 02/04/2023 How often do you attend christian or holiness serv ices? Patient declined 02/04/2023 Do you belong to any clubs o r organizations such as christian groups, unions, fraternal or athletic groups, or [...] Answer Date Recorded PHQ-2 Score 6 11/23/2024 [facility] - Occupational Stress Questionnaire Answer Date [...] AM CDT Legal Sex Male 9:11 PM WAREHOUSE ORDER PULLER Gender Identity na 09/07/2021 10:32 AM CDT Sexual Orientation Choose not to disclose 2020 10:32 AM CDT documented as of this encounter Last Filed Vital Signs Vital Sign Reading Time Taken Comments Blood Pressure 81/56 12/23/2024 12:23 PM WAREHOUSE ORDER PULLER Pulse 110 12/23/2024 12:23 PM WAREHOUSE ORDER PULLER Temperature 36.5 C (97.7 F) 12/23/2024 12:23 PM WAREHOUSE ORDER PULLER Respiratory Rate - - Oxygen Saturation - - Inhaled Oxygen Concentration - - Weight 44.5 kg (98 lb 1.7 oz) 12/23/2024 12:23 P M WAREHOUSE ORDER PULLER Height - - Body Mass Index 16.01 11/10/2024 1:00 PM WAREHOUSE ORDER PULLER documented in this encounter Medications at Time [...] diabetes control. 1 each 12/12/2023 11:05 AM WAREHOUSE ORDER PULLER 12/11/2023 calcium citrate-vitamin D3 (Citracal + D3) 315 mg-5 mcg (200 Unit) per tablet Take 1 tablet by mouth 2 (two) times a day with meals. 200 tablet 3 10/20/2024 10/20/20 25 famotidine (Pepcid) 20 mg tablet Take 1 tablet (20 mg total) by mouth 2 (two) times a day as needed for heartburn. 60 tablet 1 11/14/2024 12:18 PM WAREHOUSE ORDER PULLER 11/14/2024 fluoride, sodium, (PreviDent) 1.1 % gel [...] daily. 90 tablet 3 10/29/2024 11:46 AM WAREHOUSE ORDER PULLER 06/05/2024 gabapentin (NEURONTIN) 300 mg capsule Take 2 capsules (600 mg total) by mouth at bedtime. 04/07/2024 HYDROcodone-acetami nophen (Conyers) 7.5-325 mg per tabletIndications:C hronic Pain/Nonacute Pain [...] 911. 15 mL 2 11/14/2024 12:18 PM WAREHOUSE ORDER PULLER 11/14/2024 ondansetron ODT (Zofran-ODT) 4 mg disintegrating tablet Dissolve 1 tablet (4 mg total) in the mouth every 8 (eight) hours as needed for nausea or vomiting. 30 tablet 3 11/26/2024 3:29 PM WAREHOUSE ORDER PULLER 06/05/2024 pen needle, diabetic (BD Ultra-Fine Short Pen Needle) 31 gauge x 5/16 needle Use 3 times a day 300 each 1 11/14/2024 12:18 PM WAREHOUSE ORDER PULLER 11/14/2024 rOPINIRole (Requip) 0.25 mg tabletIndications:R estless Leg Syndrome Take 2 tablets (0.5 mg total) by mouth at bedtime as needed (RLS). 30 tablet 11/26/2024 3:29 PM WAREHOUSE ORDER PULLER 11/13/2024 rosuvastatin (Crestor) 5 mg tablet Take 1 tablet (5 mg total) by mouth daily. 90 tablet 3 12/29/2024 1:25 PM WAREHOUSE ORDER PULLER 06/05/2024 sennosides-docusate sodium (Stool Softener-Stimulant Laxat) 8.6-50 mg per tabletIndications:T ransplant Liver (HCC),Medication Therapy Box Stamper Not Anticoagulant,Drug Induced Constipation Take 1 tablet by mouth 2 (two) times a day. 100 tablet 02/22/2024 5:09 PM CDT 02/22/2024 blood-glucose sensor (FreeStyle Apryl 3 Sensor) deviceIndications:D iabetes Mellitus Type 2 Hyperglycemia (HCC) 1 each every 14 (fourteen) days. 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 The left orthodoxy wound does continue to improve. He has [...] We discussed the acute as well as fci risks, including, but not limited to fatigue, [...] by: Kiana Oliver M.D. 12/23/2024 4:09 PM WAREHOUSE ORDER PULLER Radiation Oncology [facility] [address] [place], [place] [phone] RINA documented in this encounter Plan of Treatment Upcoming Encounters Date Type Department Care Team (Latest Contact Info) Description 02/03/2025 1:00 PM CDT Appointment Department of Radiation Oncology in [address] [address] Kiana Oliver M.D. [address] [place] [phone] 02/04/2025 1:00 PM CDT Appointment Department of Radiation Oncology in [address] [address] Kiana Oliver M.D. [address] [place] [phone] 02/05/2025 12:45 PM CDT Appointment Department of Radiation Oncology in [address] [address] Kiana Oliver M.D. [address] [place] [phone] 02/05/2025 1:00 PM CDT Appointment Department of Radiation Oncology in [address] [address] Kiana Oliver M.D. [address] [place] [phone] 02/06/2025 1:00 PM CDT Appointment Department of Radiation Oncology in [address] [address] Kiana Oliver M.D. [address] [place] [phone] 02/09/2025 1:00 PM CDT Appointment Department of Radiation Oncology in [address] [address] Kiana Oliver M.D. [address] [place] [phone] 02/10/2025 1:00 PM CDT Appointment Department of Radiation Oncology in [place], [place] [address] [place] [phone] Kiana Oliver M.D. [address] [place] [phone] 02/11/2025 1:00 PM CDT Appointment Department of Radiation Oncology in [address] [address] Kiana Oliver M.D. [address] [place] [phone] 02/12/2025 1:00 PM CDT Appointment Department of Radiation Oncology in [address] [address] Kiana Oliver M.D. [address] [place] [phone] 02/12/2025 1:15 PM CDT Appointment Department of Radiation Oncology in [address] [address] Kiana Oliver M.D. [address] [place] [phone] 02/13/2025 1:00 PM CDT Appointment Department of Radiation Oncology in [place], [place] [address] [place] [phone] Kiana Oliver M.D. [address] [place] [phone] 02/16/2025 7:15 AM CDT Ancillary Procedure Department of Ophthalmology in [place], [place] [address] [place] [phone] Maida Tim O.D. [address] [place] [phone] 02/16/2025 8:00 AM CDT Comprehensive Visit Department of Ophthalmology in [place], [place] [address] [place] [phone] Desi Rasmussen O.D. [address] [place] [phone] 02/23/2025 8:15 AM CDT Clinical Communication Virtual Review in [place], [place] 200 [place] [address] 02/24/2025 9:40 AM CDT Office Visit Department of Dermatology in [address] [address] Felipe Stewart M.D. [address] [place] [phone] 02/24/2025 10:00 AM CDT Office Visit Jeyson Brown [facility] for Transplantation and Clinical Regeneration in [address] [address] Aide Welch, P.A.-C., M.S. [address] [place] [phone] 03/03/2025 9:00 AM CDT Telemedicine Department of Nutrition and Diabetes Education in [address] [address] Katelin Alcaraz APRN, C.N.P., D.N.P. [address] [place] [phone] Mansi Ross MJacob, RDN, LD [address] [place] [address] Scheduled Referrals Name Type Priority Associated Diagnoses [...] Depression Total Score: 19 025 12:23 PM WAREHOUSE ORDER PULLER documented as of this encounter Care Teams Operator Supply Relationship Specialty Start Date End Date Kelly Mendez APRN, C.N.P., D.N.P. [address] [place] [address] PCP - General Internal Medicine 12/05/23 [facility] [place] or Anabel [facility] lab Laboratory Medicine 02/26/23 documented as of this encounter
--- OUTSIDE RECORDS SUMMARY | 2025-02-02 23:58 | XMS_ITS | Encounter Summary ---
Author Organization [facility] Address [address] [place] [address] Care Team Providers Care Bogger Operator Name Role Phone Kelly Mendez APRN C.N.P., D.N.P. Primary Car e Provider Reason for Visit * Radiation Therapy (Routine) - Authorized Specialty Diagnoses / Procedures Referred By Juanito ayala Referred To Contact Diagnoses 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 Procedures Prior Auth Rad Tx IA IMRT COMPLEX IA GUIDANCE FOR LOC RAD TX IA IMRT RADIOTHERAPY PLAN IMRT Kiana Oliver M.D. 200 [place] [address] Phone: tel: fax: [facility] Radiation Oncology at [place] [address] [place] [phone] Referral ID Status Reason Start Date Expiration Date V isits Requested Visits Authorized [id number] Authorized 12/22/2024 03/10/2026 15 30 Encounter Details Date Type Department Care Team (Late st Contact Info) Description 01/05/2025 1:12 PM LATIN DANCE INSTRUCTOR Hospital Encounter Department of Radiation Oncology in [place], [place] [address] [place] [phone] Kiana Oliver M.D. [address] [place] [phone] Social History Tobacco Use Types Packs/Day Years Used Date Smoking Tobacco: Former Cigarettes Q uit: 2008 Passive Smoke Exposure: Never Smokeless Tobacco: Never Alcohol Use Standard Drinks/Week Comments Not Currently 0 (1 standard drink = 0.6 oz pur e alcohol) last 06/23/22 [facility] Utilities Answer Date Recorded In [...] How often do you attend spiritism or pentecostal serv ices? Patient declined 02/04/2023 [...] AM CDT Legal Sex Male 9:11 PM LATIN DANCE INSTRUCTOR Gender Identity na 09/07/2021 10:32 AM CDT Sexual Orientation Choose not to disclose 2020 10:32 AM CDT documented as of this encounter Plan of Treatment Upcoming Encounters Date Type Department Care Team (Latest Contact Info) Description 02/03/2025 1:00 PM CDT Appointment Department of Radiation Oncology in [address] [phone] Kiana Oliver M.D. [address] [place] [phone] 02/04/2025 1:00 PM CDT Appointment Department of Radiation Oncology in [address] [address] Kiana Oliver M.D. [address] [place] [phone] 02/05/2025 12:45 PM CDT Appointment Department of Radiation Oncology in [address] [address] Kiana Oliver M.D. [address] [place] [phone] 02/05/2025 1:00 PM CDT Appointment Department of Radiation Oncology in [address] [address] Kiana Oliver M.D. [address] [place] [phone] 02/06/2025 1:00 PM CDT Appointment Department of Radiation Oncology in [address] [address] Kiana Oliver M.D. [address] [place] [phone] 02/09/2025 1:00 PM CDT Appointment Department of Radiation Oncology in [place], [place] [address] [place] [phone] Kiana Oliver M.D. [address] [place] [phone] 02/10/2025 1:00 PM CDT Appointment Department of Radiation Oncology in [place], [place] [address] [place] [phone] Kiana Oliver M.D. [address] [place] [phone] 02/11/2025 1:00 PM CDT Appointment Department of Radiation Oncology in [address] [address] Kiana Oliver M.D. [address] [place] [phone] 02/12/2025 1:00 PM CDT Appointment Department of Radiation Oncology in [address] [address] Kiana Oliver M.D. [address] [place] [phone] 02/12/2025 1:15 PM CDT Appointment Department of Radiation Oncology in [address] [address] Kiana Oliver M.D. [address] [place] [phone] 02/13/2025 1:00 PM CDT Appointment Department of Radiation Oncology in [address] [address] Kiana Oliver M.D. [address] [place] [phone] 02/16/2025 7:15 AM CDT Ancillary Procedure Department of Ophthalmology in [place], [place] [address] [place] [phone] Maida Tim O.D. [address] [place] [phone] 02/16/2025 8:00 AM CDT Comprehensive Visit Department of Ophthalmology in [place], [place] [address] [place] [phone] Desi Rasmussen O.D. [address] [place] [phone] 02/23/2025 8:15 AM CDT Clinical Communication Virtual Review in [place], [place] 200 [place] [address] 02/24/2025 9:40 AM CDT Office Visit Department of Dermatology in [address] [phone] Felipe Stewart M.D. [address] [place] [phone] 02/24/2025 10:00 AM CDT Office Visit Jeyson milan [facility] and Clinical Regeneration in [place], [place] [address] [place] [phone] Aide Welch P.A.Willie., M.S. [address] [place] [phone] 03/03/2025 9:00 AM CDT Telemedicine Department of Nutrition and Diabetes Education in [address] [address] Katelin Alcaraz, MARCUS, C.N.P., D.N.P. [address] [place] [phone] Mansi Ross M.S., RDN, LD [address] [place] [address] documented as of this encounter Visit Diagnoses Not on filedocumented in this encounter Additional Health Concerns Infection Onset Date Last Indicated Resolved Time Protective Environment 11/10/2023 11/10/2023 Assessment Noted Time PHQ-9 Depression Total Score: 19 025 12:23 PM LATIN DANCE INSTRUCTOR documented as of this encounter Care Teams Bogger Operator Relationship Specialty Start Date End Date Kelly Mendez APRN, C.N.P., D.N.P. [address] [place] [phone] PCP - General Internal Medicine 12/05/23 [facility] [place] or Anabel [facility] lab Laboratory Medicine 02/26/23 documented as of this encounter
--- OUTSIDE RECORDS SUMMARY | 2025-02-02 23:58 | XMS_ITS | Encounter Summary ---
Author Organization [facility] Address [address] [place] [address] Care Team Providers Care Air Valve Repairer Name Role Phone Kelly Mendez APRN C.N.P., D.N.P. Primary Car e Provider Reason for Referral * Outpatient (Routine) - Authorized Specialty Diagnoses / Procedures Referred By Contac t Referred To Contact Dermatology Diagnoses Malignant Neoplasm Of Face Squamous Cell Procedures [employer] Elsi Goldsmith M.D. [address] [place] [address] Phone: tel: fax: [facility] Referral ID Status Reason Start Date Expiration Date V isits Requested Visits Authorized [id number] Authorized 12/19/2024 03/21/2026 1 1 UP OPERATOR Reason for Visit * Outpatient (Routine) - Closed Specialty Diagnoses / Procedures Referred By Contac t Referred To Contact Dermatology Diagnoses Malignant Neoplasm Of Face Squamous Cell Elsi Goldsmith M.D. [address] [place] [address] Phone: tel: fax: [facility] Referral ID Status Reason Start Date Expiration Date Visits Re quested Visits Authorized [id number] Closed 12/01/2024 06/02/2026 1 1 Encounter Details Date Type Department Care Team (Late st Contact Info) Description 12/19/2024 9:30 AM TAKE UP OPERATOR Office Visit Department of Dermatology in [place], [place] 200 [place] [address] Elsi Goldsmith M.D. 200 [place] [address] Malignant Neoplasm Of Face Squamous Cell Social History Tobacco Use Types Packs/Day Years Used Date Smoking Tobacco: Former Cigarettes Q uit: 2008 Passive Smoke Exposure: Never Smokeless Tobacco: Never Alcohol Use Standard Drinks/Week Comments Not Currently 0 (1 standard drink = 0.6 oz pur e alcohol) last 06/23/22 [facility] Utilities Answer Date Recorded In the past 12 months has e electric, gas, oil, or water [employer] threatened to shut off services in your [...] How often do you attend anabaptist or gnosticist serv ices? 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 The patient's last procedure visit with [facility] was on 11/24/2024 with me, Dr. [...] to do radiation. We have seen his confucianism at the last follow up and today [...] multifocal PNI and lymphovascular invasion (Stage T2b [facility], T3 AJCC) s/p Mohs surgery 11/24/23 No [...] behalf by Racheal Deepak, a trained medical file clerk. The creation of this record is based on the scribe remotely listening to the visit and the provider's statements to them. This document has been checked and approved by the attending provider. Scribed for Lola Goldsmith M.D. by Racheal Sotelo, on 12/19/2024, 6:57 AM TAKE UP OPERATOR. UP OPERATOR documented in this encounter Plan of Treatment Upcoming Encounters Date Type Department Care Team (Latest Contact Info) Description 02/03/2025 1:00 PM CDT Appointment Department of Radiation Oncology in [address] [address] Kiana Oliver M.D. [address] [place] [phone] 02/04/2025 1:00 PM CDT Appointment Department of Radiation Oncology in [address] [address] Kiana Oliver M.D. [address] [place] [phone] 02/05/2025 12:45 PM CDT Appointment Department of Radiation Oncology in [address] [address] Kiana Oliver M.D. [address] [place] [phone] 02/05/2025 1:00 PM CDT Appointment Department of Radiation Oncology in [address] [address] Kiana Oliver M.D. [address] [place] [phone] 02/06/2025 1:00 PM CDT Appointment Department of Radiation Oncology in [place], [place] [address] [place] [phone] Kiana Oliver M.D. [address] [place] [phone] 02/09/2025 1:00 PM CDT Appointment Department of Radiation Oncology in [address] [address] Kiana Oliver M.D. [address] [place] [phone] 02/10/2025 1:00 PM CDT Appointment Department of Radiation Oncology in [address] [address] Kiana Oliver M.D. [address] [place] [phone] 02/11/2025 1:00 PM CDT Appointment Department of Radiation Oncology in [address] [address] Kiana Oliver M.D. [address] [place] [phone] 02/12/2025 1:00 PM CDT Appointment Department of Radiation Oncology in [address] [address] Kiana Oliver M.D. [address] [place] [phone] 02/12/2025 1:15 PM CDT Appointment Department of Radiation Oncology in [address] [address] Kiana Oliver M.D. [address] [place] [phone] 02/13/2025 1:00 PM CDT Appointment Department of Radiation Oncology in [place], [place] [address] [place] [phone] Kiana Oliver M.D. [address] [place] [phone] 02/16/2025 7:15 AM CDT Ancillary Procedure Department of Ophthalmology in [place], [place] [address] [place] [phone] Maida Tim O.D. [address] [place] [phone] 02/16/2025 8:00 AM CDT Comprehensive Visit Department of Ophthalmology in [place], [place] [address] [place] [phone] Desi Rasmussen O.D. [address] [place] [phone] 02/23/2025 8:15 AM CDT Clinical Communication Virtual Review in [place], [place] 200 [place] [address] 02/24/2025 9:40 AM CDT Office Visit Department of Dermatology in [place], [place] [address] [place] [phone] Felipe Stewart M.D. [address] [place] [phone] 02/24/2025 10:00 AM CDT [facility] [place], [place] [address] [place] [phone] Aide Welch P.A.-C., M.S. [address] [place] [phone] 03/03/2025 9:00 AM CDT Telemedicine Department of Nutrition and Diabetes Education in [place], [place] [address] [place] [address] Katelin Alcaraz APRN, C.N.P., D.N.P. [address] [place] [address] Mansi Ross M.S., RDN, LD [address] [place] [address] Scheduled Orders Name Type Priority Associated Diagnoses [...] Depression Total Score: 19 025 12:23 PM TAKE UP OPERATOR documented as of this encounter Care Teams Air Valve Repairer Relationship Specialty Start Date End Date Kelly Mendez APRN, C.N.P., D.N.P. [address] [place] [address] PCP - General Internal Medicine 12/05/23 [facility] [place] [facility] lab Laboratory Medicine 02/26/23 documented as of this encounter
--- OUTSIDE RECORDS SUMMARY | 2025-02-02 23:58 | XMS_ITS | Encounter Summary ---
Author Organization [facility] Address [address] [place] [address] Care Team Providers Care Water Engineer Name Role Phone Kelly Mendez APRN C.N.PKathrin, D.N.P. Primary Car e Provider Encounter Details Date Type Department Care Team (Late st Contact Info) Description 12/25/2024 Orders Only Department of Cardiovascular Medicine in [place], [place] [address] [place] [address] Lens Matcher, Aneudy Rubio Social History Tobacco Use Types Packs/Day Years Used Date Smoking Tobacco: Former Cigarettes Q uit: 2008 Passive Smoke Exposure: Never Smokeless Tobacco: Never Alcohol Use Standard Drinks/Week Comments Not Currently 0 (1 standard drink = 0.6 oz pur e alcohol) last 06/23/22 [facility] Utilities Answer Date Recorded In the past 12 months has [employer], gas, oil, or water [employer] threatened to shut off services in your [...] week 02/04/2023 How often do you attend advent or synagogue serv ices? 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 200 [place] [phone] 02/04/2025 1:00 PM CDT Appointment Department of Radiation Oncology in [place], [place] [address] [place] [address] Kiana Oilver M.D. [address] [place] [phone] 02/05/2025 12:45 PM CDT Appointment Department of Radiation Oncology in [address] [address] Kiana Oliver M.D. [address] [place] [phone] 02/05/2025 1:00 PM CDT Appointment Department of Radiation Oncology in [address] [address] Kiana Oliver M.D. [address] [place] [phone] 02/06/2025 1:00 PM CDT Appointment Department of Radiation Oncology in [address] [address] Kiana Oliver M.D. [address] [place] [phone] 02/09/2025 1:00 PM CDT Appointment Department of Radiation Oncology in [address] [address] Kiana Oliver M.D. [address] [place] [phone] 02/10/2025 1:00 PM CDT Appointment Department of Radiation Oncology in [address] [address] Kiana Oliver M.D. [address] [place] [phone] 02/11/2025 1:00 PM CDT Appointment Department of Radiation Oncology in [address] [address] Kiana Oliver M.D. [address] [place] [phone] 02/12/2025 1:00 PM CDT Appointment Department of Radiation Oncology in [place], [place] [address] [place] [address] Kiana Oliver M.D. [address] [place] [address] 02/12/2025 1:15 PM CDT Appointment Department of Radiation Oncology in [place], [place] [address] [place] [address] Kiana Oliver M.D. [address] [place] [address] 02/13/2025 1:00 PM CDT Appointment Department of Radiation Oncology in [place], [place] [address] [place] [address] Kiana Oliver M.D. [address] [place] [phone] 02/16/2025 7:15 AM CDT Ancillary Procedure Department of Ophthalmology in [place], [place] [address] [place] [phone] Maida Tim O.D. [address] [place] [phone] 02/16/2025 8:00 AM CDT Comprehensive Visit Department of Ophthalmology in [place], [place] [address] [place] [phone] Desi Rasmussen O.D. [address] [place] [phone] 02/23/2025 8:15 AM CDT Clinical Communication Virtual Review in [place], [place] 200 [place] [phone] 02/24/2025 9:40 AM CDT Office Visit Department of Dermatology in [address] [phone] Felipe Stewart M.D. [address] [place] [phone] 02/24/2025 10:00 AM CDT [facility] in [place], [place] [address] [place] [phone] Aide Welch P.A.-C., M.S. [address] [place] [phone] 03/03/2025 9:00 AM CDT Telemedicine Department of Nutrition and Diabetes Education in [address] [phone] Katelin Alcaraz APRN, C.N.P., D.N.P. 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 [address], [place] [phone] (work) PCP - General Internal Medicine 12/05/23 [facility] Rhea Little [facility] lab Laboratory Medicine 02/26/23 documented as of this encounter
--- OUTSIDE RECORDS SUMMARY | 2025-02-02 23:58 | XMS_ITS | Encounter Summary ---
Author Organization [facility] Address [address] [place] [address] Care Team Providers Care Allergy Nurse Name Role Phone Andrea Kellylilia Buchanan APRN C.N.PKathrin, D.N.P. Primary Car e Provider Encounter Details Date Type Department Care Team (Late st Contact Info) Description 12/25/2024 Orders Only Department of Radiation Oncology in [place], [place] [address] [place] [phone] Kiana Oliver M.D. 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 [address] 02/04/2025 1:00 PM CDT Appointment Department of Radiation Oncology in [place], [place] [address] [place] [phone] Kiana Oliver M.D. [address] [place] [phone] 02/05/2025 12:45 PM CDT Appointment Department of Radiation Oncology in [place], [place] [address] [place] [phone] Kiana Oliver M.D. [address] [place] [phone] 02/05/2025 1:00 PM CDT Appointment Department of Radiation Oncology in [address] [address] Kiana Oliver M.D. [address] [place] [phone] 02/06/2025 1:00 PM CDT Appointment Department of Radiation Oncology in [place], [place] [address] [place] [phone] Kiana Oliver M.D. [address] [place] [phone] 02/09/2025 1:00 PM CDT Appointment Department of Radiation Oncology in [place], [place] [address] [place] [address] Kiana Oliver M.D. [address] [place] [phone] 02/10/2025 1:00 PM CDT Appointment Department of Radiation Oncology in [address] [address] Kiana Oliver M.D. [address] [place] [phone] 02/11/2025 1:00 PM CDT Appointment Department of Radiation Oncology in [place], [place] [address] [place] [phone] Kiana Oliver M.D. [address] [place] [phone] 02/12/2025 1:00 PM CDT Appointment Department of Radiation Oncology in [place], [place] [address] [place] [phone] Kiana Oliver M.D. [address] [place] [phone] 02/12/2025 1:15 PM CDT Appointment Department of Radiation Oncology in [address] [address] Kiana Oliver M.D. [address] [place] [phone] 02/13/2025 1:00 PM CDT Appointment Department of Radiation Oncology in [place] [address] [place] [address] Kiana Oliver M.D. [address] [place] [phone] 02/16/2025 7:15 AM CDT Ancillary Procedure Department of Ophthalmology in [place], [place] [address] [place] [phone] Maida Tim O.D. [address] [place] [phone] 02/16/2025 8:00 AM CDT Comprehensive Visit Department of Ophthalmology in [place], [place] [address] [place] [phone] Desi Rasmussen O.D. [address] [place] [phone] 02/23/2025 8:15 AM CDT Clinical Communication Virtual Review in [place], [place] 200 [place] [address] 02/24/2025 9:40 AM CDT Office Visit Department of Dermatology in [place], [place] [address] [place] [phone] Felipe Stewart M.D. [address] [place] [phone] 02/24/2025 10:00 AM CDT Office Visit Jeyson Kevin [facility] for Transplantation and Clinical Regeneration in [place], [place] [address] [place] [phone] Aide Welch P.A.-C., M.S. [address] [place] [phone] 03/03/2025 9:00 AM CDT Telemedicine Department of Nutrition and Diabetes Education in [place], [place] [address] [place] [phone] Katelin Alcaraz APRN, C.N.P., D.N.P. 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 [address] [place] [phone] PCP - General Internal Medicine 12/05/23 [place] [facility] [place] or [facility] lab Laboratory Medicine 02/26/23 documented as of this encounter
--- OUTSIDE RECORDS SUMMARY | 2025-02-02 23:58 | XMS_ITS | Encounter Summary ---
Author Organization [facility] Address [address] [place] [address] Care Team Providers Care Topographical Drafter Name Role Phone Wally Daniel MD Primary Care Provider Unavailable Wally Daniel MD Unavailable Unavai lable No Ref-Primary, Physician Primary Care Provider Tennille Goddard APRN EMU FARMER Unavailable [phone] Tennille Goddard APRN EMU FARMER Unavailable [phone] Beatris Ty [facility] Unavailable [phone] Dov Alston [facility] Unavailable Unavailable Tennille Goddard APRN EMU FARMER Primary Care Provider + Dov Alston [facility] Unavailable Unavailable Dov Alston [facility] Unavailable Unavailable Encounter Details Date Type Department Care Team (Late st Contact Info) Description 12/01/2015 [facility] [address] [place] [phone] Dov Alston, [facility] [address] [place] [address] Social History Tobacco Use Types Packs/Day Years [...] on file 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 Gender Identity Not on file Sexual Orientation Not on file 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 as of this encounter Plan of Treatment Not on file documented as of this encounter Visit Diagnoses Not on filedocumented in this encounter Care Teams Topographical Drafter Relationship Specialty Start Date End Date Wally Daniel MD PCP - General 12/17/03 12/08/18 Wally Daniel MD PCP - Assigned PCP 10/16/10 12/14/18 No Ref-Primary, Physician PCP - General 12/09/18 08/17/19 Tennille Goddard APRN [employer]U [employer]ARMER [address] [place], [place] [phone] PCP - Assigned PCP 12/15/18 01/21/19 Tennille Goddard APRN EMU FARMER [address] [place] [place] [phone] PCP - General Nurse Practitioner - Family 08/18/19 Tennille Goddard APRN EMU FARMER [address] [address] [place], [place] [phone] Assigned PCP 12/15/18 01/07/22 Beatris Ty [facility] [address] [place] [address] Pharmacist Pharmacist 04/08/19 01/12/21 Dov Alston [facility] [address] [place] [address] Pharmacist Pharmacist 06/16/19 Dov Alston [facility] [address] [place] [address] Assigned MTM Pharmacist 04/15/22 08/04/22 [facility] [address] [place] [address] Assigned MTM Pharmacist 08/16/22 10/27/22 documented as of this encounter
--- OUTSIDE RECORDS SUMMARY | 2025-02-02 23:58 | XMS_ITS | Encounter Summary ---
Author Organization [facility] Address [address] [place] [address] Care Team Providers Care Rug Frame Mounter Name Role Phone AndreaKelly Chanel VELAZQUEZ, C.N.P., D.N.P. Primary Car e Provider Reason for Visit * Outpatient (Routine) - Closed Specialty Diagnoses / Procedures Referred By Juanito t Referred To Contact Endocrinology Diagnoses Dietary Counseling And Surveillance For Enteral Nutrition Katelin Alcaraz APRN, C.N.P., D.N.P. [address] [place] [phone] Phone: tel: fax: END HEN PROVIDER 01 KAJAL Referral ID Status Reason Start Date Expiration Date Visits Re quested Visits Authorized [id number] Closed 12/17/2024 06/18/2026 1 1 Encounter Details Date Type Department Care Team (Latest Contact Info) Description 01/01/2025 11:00 AM COSMETICS SUPERVISOR Telemedicine Division of Endocrinology in [place], [place] [address] [place] [phone] Katelin Alcaraz APRN, C.N.P., D.N.P. [address] [place] [phone] Dietary Counseling And Surveillance For Enteral Nutrition Social History Tobacco Use Types Packs/Day Years Used Date Smoking Tobacco: Former Cigarettes Q uit: 2008 Passive Smoke Exposure: Never Smokeless Tobacco: Never Alcohol Use Standard Drinks/Week Comments Not Currently 0 (1 standard drink = 0.6 oz pur e alcohol) last 06/23/22 [facility] Utilities Answer Date Recorded In the past [...] week 02/04/2023 How often do you attend sikh or congregational serv ices? 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 - 01/01/2025 11:00 AM COSMETICS SUPERVISOR Trial Peptamen 1.5, 4 oz given slowly [...] working on oral intake, increasing as tolerated. ETICS SUPERVISOR ETICS SUPERVISOR documented in this encounter Progress Notes * [...] Yesterday 1180, day before 1635. Typically getting 9266-1365 per day Intake is similar to previous visit Tries for Ensure Plus (at least one per day) Typical daily oral hydration consists of: Water Enteral nutrition: Patient was on Zerply in the hospital; patient trialed Peptamen 1.5 [...] care. Total time spent 30 minutes, including hdib-iv-yygt and non dopb-qu-hxnd care time. ETICS SUPERVISOR documented in this encounter Plan of Treatment Upcoming Encounters Date Type Department Care Team (Latest Contact Info) Description 02/03/2025 1:00 PM CDT Appointment Department of Radiation Oncology in [address] [phone] Kiana Oliver M.D. [address] [place] [phone] 02/04/2025 1:00 PM CDT Appointment Department of Radiation Oncology in [address] [phone] Kiana Oliver M.D. [address] [place] [phone] 02/05/2025 12:45 PM CDT Appointment Department of Radiation Oncology in [address] [phone] Kiana Oliver M.D. [address] [place] [phone] 02/05/2025 1:00 PM CDT Appointment Department of Radiation Oncology in [address] [address] Kiana Oliver M.D. [address] [place] [phone] 02/06/2025 1:00 PM CDT Appointment Department of Radiation Oncology in [place], [place] [address] [place] [address] Kiana Oliver M.D. [address] [place] [phone] 02/09/2025 1:00 PM CDT Appointment Department of Radiation Oncology in [place], [place] [address] [place] [phone] Kiana Oliver M.D. [address] [place] [phone] 02/10/2025 1:00 PM CDT Appointment Department of Radiation Oncology in [place], [place] [address] [place] [address] Kiana Oliver M.D. [address] [place] [phone] 02/11/2025 1:00 PM CDT Appointment Department of Radiation Oncology in [place], [place] [address] [place] [phone] Kiana Oliver M.D. [address] [place] [phone] 02/12/2025 1:00 PM CDT Appointment Department of Radiation Oncology in [place], [place] [address] [place] [phone] Kiana Oliver M.D. [address] [place] [phone] 02/12/2025 1:15 PM CDT Appointment Department of Radiation Oncology in [place], [place] [address] [place] [phone] Kiana Oliver M.D. [address] [place] [phone] 02/13/2025 1:00 PM CDT Appointment Department of Radiation Oncology in [place], [place] [address] [place] [phone] Kiana Oliver M.D. [address] [place] [phone] 02/16/2025 7:15 AM CDT Ancillary Procedure Department of Ophthalmology in [address] [phone] Maida Tim O.D. [address] [place] [phone] 02/16/2025 8:00 AM CDT Comprehensive Visit Department of Ophthalmology in [place], [place] [address] [place] [phone] Desi Rasmussen O.D. [address] [phone] 02/23/2025 8:15 AM CDT Clinical Communication Virtual Review in [place], [place] 200 [place] [address] 02/24/2025 9:40 AM CDT Office Visit Department of Dermatology in [address] [phone] Felipe Stewart M.D. [address] [place] [phone] 02/24/2025 10:00 AM CDT [facility] in [place], [place] [address] [place] [phone] Aide Welch P.A.-C., M.S. [address] [place] [address] 03/03/2025 9:00 AM CDT Telemedicine Department of Nutrition and Diabetes Education in [place], [place] [address] [place] [address] Katelin Alcaraz APRN, C.N.P., D.N.P. [address] [place] [phone] Mansi Ross M.S., RDN, LD [address] [place] [phone] documented as of this encounter Visit Diagnoses Diagnosis Dietary Counseling And Surveillance For Enteral Nutrition documented in this encounter Additional Health Concerns Infection Onset Date Last Indicated Resolved Time Protective Environment 11/10/2023 11/10/2023 Assessment Noted Time PHQ-9 Depression Total Score: 19 025 12:23 PM COSMETICS SUPERVISOR documented as of this encounter Care Teams Rug Frame Mounter Relationship Specialty Start Date End Date Kelly Mendez APRN, C.N.P., D.N.P. [address] [place] [phone] PCP - General Internal Medicine 12/05/23 [facility] [place] [facility] lab Laboratory Medicine 02/26/23 documented as of this encounter
--- OUTSIDE RECORDS SUMMARY | 2025-02-02 23:58 | XMS_ITS | Encounter Summary ---
Author Organization [facility] Address [address] [place] [address] Care Team Providers Care Oss Architect Name Role Phone AndreaJuddKellylilia Buchanan APRN C.N.P., D.N.P. Primary Car e Provider Reason for Visit * Reason Onset Date Comments Appt Request 12/30/2024 Pacemaker schedu ling Encounter Details Date Type Department Care Team (Latest Contact Info) Description 12/30/2024 Clinical Communication Jeyson Brown [facility] for Transplantation and Clinical Regeneration in [place], [place] [address] [place] [phone] Aide Welch P.A.-C., M.S. [address] [place] [phone] Appt Request (Pacemaker scheduling) Social History Tobacco [...] has e electric, gas, oil, or water [employer] threatened to shut off services in your [...] How often do you attend taoist or zoroastrian serv ices? 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 [address] [place] [address] 02/04/2025 1:00 PM CDT Appointment Department of Radiation Oncology in [place], [place] [address] [place] [phone] Kiana Oliver M.D. [address] [place] [phone] 02/05/2025 12:45 PM CDT Appointment Department of Radiation Oncology in [address] [phone] Kiana Oliver M.D. [address] [place] [phone] 02/05/2025 1:00 PM CDT Appointment Department of Radiation Oncology in [address] [phone] Kiana Oliver M.D. [address] [place] [phone] 02/06/2025 1:00 PM CDT Appointment Department of Radiation Oncology in [address] [phone] Kiana Oliver M.D. [address] [place] [phone] 02/09/2025 1:00 PM CDT Appointment Department of Radiation Oncology in [address] [address] Kiana Oliver M.D. [address] [place] [phone] 02/10/2025 1:00 PM CDT Appointment Department of Radiation Oncology in [address] [address] Kiana Oliver M.D. [address] [place] [phone] 02/11/2025 1:00 PM CDT Appointment Department of Radiation Oncology in [place], [place] [address] [place] [phone] Kiana Oliver M.D. [address] [place] [phone] 02/12/2025 1:00 PM CDT Appointment Department of Radiation Oncology in [place], [place] [address] [place] [phone] Kiana Oliver M.D. [address] [place] [phone] 02/12/2025 1:15 PM CDT Appointment Department of Radiation Oncology in [place], [place] [address] [place] [phone] Kiana Oliver M.D. [address] [place] [phone] 02/13/2025 1:00 PM CDT Appointment Department of Radiation Oncology in [place], [place] [address] [place] [address] Kiana Oliver M.D. [address] [place] [phone] 02/16/2025 7:15 AM CDT Ancillary Procedure Department of Ophthalmology in [place], [place] [address] [place] [phone] Maida Tim O.D. [address] [place] [phone] 02/16/2025 8:00 AM CDT Comprehensive Visit Department of Ophthalmology in [place], [place] [address] [place] [phone] Desi Rasmussen O.D. [address] [place] [phone] 02/23/2025 8:15 AM CDT Clinical Communication Virtual Review in [place], [place] [address] [place] [phone] 02/24/2025 9:40 AM CDT Office Visit Department of Dermatology in [place], [place] [address] [place] [phone] Felipe Stewart M.D. [address] [place] [phone] 02/24/2025 10:00 AM CDT Office Visit Jeyson Kevin [facility] for Transplantation and Clinical Regeneration in [place], [place] [address] [place] [phone] Aide Welch P.A.-Ximena., M.S. [address] [place] [phone] 03/03/2025 9:00 AM CDT Telemedicine Department of Nutrition and Diabetes Education in [place], [place] [address] [place] [phone] Katelin Alcaraz APRN, C.N.P., D.N.P. 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 [address] [place] [phone] PCP - General Internal Medicine 12/05/23 [place] [facility] [place] or [place] lab Laboratory Medicine 02/26/23 documented as of this encounter
--- OUTSIDE RECORDS SUMMARY | 2025-02-02 23:58 | XMS_ITS | Encounter Summary ---
Author Organization [facility] Address [address] [place] [address] Care Team Providers Care Overseamer Name Role Phone MendezKelly Chanel VELAZQUEZ C.N.P., D.N.P. Primary Car e Provider Encounter Details Date Type Department Care Team (Latest Contact Info) Description 12/26/2024 9:50 AM SPECIAL TRACKWORK BLACKSMITH - 12/26/2024 11:[address] [facility] Hospital Encounter Department of Laboratory Medicine in [place], [place] [address] [place] [address] Deann Zhu APRN, C.N.P., M.S. [address] [place] [address] Transplant Liver (HCC); Medication Therapy Director Of Valuation Not Anticoagulant; Immunodeficiency Due To Drugs (HCC); [...] 0.6 oz pur e alcohol) last 06/23/22 [facility] Utilities Answer Date Recorded In the past 12 months has [employer], gas, oil, or water [employer] threatened to shut off services in [...] How often do you attend mormon or worship serv ices? Patient declined 02/04/2023 Do you [...] Answer Date Recorded PHQ-2 Score 6 11/23/2024 [facility] [...] AM CDT Legal Sex Male 9:11 PM [employer] TRACKWORK BLACKSMITH Gender Identity na 09/07/2021 10:32 AM CDT [...] diabetes control. 1 each 12/12/2023 11:05 AM SPECIAL TRACKWORK BLACKSMITH 12/11/2023 calcium citrate-vitamin D3 (Citracal + D3) 315 mg-5 mcg (200 Unit) per tablet Take 1 tablet by mouth 2 (two) times a day with meals. 200 tablet 3 10/20/2024 10/20/20 25 famotidine (Pepcid) 20 mg tablet Take 1 tablet (20 mg total) by mouth 2 (two) times a day as needed for heartburn. 60 tablet 1 11/14/2024 12:18 PM [employer] BLACKSMITH 11/14/2024 fluoride, sodium, (PreviDent) 1.1 % gel [...] daily. 90 tablet 3 10/29/2024 11:46 AM [employer] TRACKWORK BLACKSMITH 06/05/2024 gabapentin (NEURONTIN) 300 mg capsule Take 2 capsules (600 mg total) by mouth at bedtime. 04/07/2024 HYDROcodone-acetami nophen (Hamlet) 7.5-325 mg per tabletIndications:C hronic Pain/Nonacute Pain [...] 911. 15 mL 2 11/14/2024 12:18 PM [employer] TRACKWORK BLACKSMITH 11/14/2024 ondansetron ODT (Zofran-ODT) 4 mg disintegrating tablet Dissolve 1 tablet (4 mg total) in the mouth every 8 (eight) hours as needed for nausea or vomiting. 30 tablet 3 11/26/2024 3:29 PM [employer] TR[employer]WORK BLACKSMITH 06/05/2024 pen needle, diabetic (BD Ultra-Fine Short Pen Needle) 31 gauge x 5/16 needle Use 3 times a day 300 each 1 11/14/2024 12:18 PM [employer] TR[employer]WORK BLACKSMITH 11/14/2024 rOPINIRole (Requip) 0.25 mg tabletIndications:R estless Leg Syndrome Take 2 tablets (0.5 mg total) by mouth at bedtime as needed (RLS). 30 tablet 11/26/2024 3:29 PM [employer]WORK BLACKSMITH 11/13/2024 rosuvastatin (Crestor) 5 mg tablet Take 1 tablet (5 mg total) by mouth daily. 90 tablet 3 12/29/2024 1:25 PM [employer] TR[employer]WORK BLACKSMITH 06/05/2024 sennosides-docusate sodium (Stool Softener-Stimulant Laxat) 8.6-50 mg per tabletIndications:T ransplant Liver (HCC),Medication Therapy Custodial Not Anticoagulant,Drug Induced Constipation Take 1 tablet by mouth 2 (two) times a day. 100 tablet 02/22/2024 5:09 PM CDT 02/22/2024 blood-glucose sensor (FreeStyle Apryl 3 Sensor) deviceIndications:D iabetes Mellitus Type 2 Hyperglycemia (HCC) 1 each every 14 (fourteen) days. 6 each 3 11/26/2024 3:29 PM [employer] TR[employer]WORK BLACKSMITH 09/04/2024 01/29/20 25 insulin glargine 100 unit/mL [...] 1 mg capsuleIndications: Transplant Liver (HCC),Medication Therapy Director Of Valuation Not Anticoagulant Take 4 capsules (4 mg total) by mouth 2 (two) times a day. 720 capsule 3 12/01/2024 01/01/20 25 documented as of this encounter Plan of Treatment Upcoming Encounters Date Type Department Care Team (Latest Contact Info) Description 02/03/2025 1:00 PM CDT Appointment Department of Radiation Oncology in [address] [phone] Kiana Oliver M.D. [address] [place] [phone] 02/04/2025 1:00 PM CDT Appointment Department of Radiation Oncology in [address] [address] Kiana Oliver M.D. 200 [place] [address] 02/05/2025 12:45 PM CDT Appointment Department of Radiation Oncology in [address] [address] Kiana Oliver M.D. 200 [place] [address] 02/05/2025 1:00 PM CDT Appointment Department of Radiation Oncology in [address] [address] Kiana Oliver M.D. [address] [place] [phone] 02/06/2025 1:00 PM CDT Appointment Department of Radiation Oncology in [place], [place] [address] [place] [phone] Kiana Oliver M.D. [address] [place] [address] 02/09/2025 1:00 PM CDT Appointment Department of Radiation Oncology in [address] [address] Kiana Oliver M.D. [address] [place] [phone] 02/10/2025 1:00 PM CDT Appointment Department of Radiation Oncology in [address] [address] Kiana Oliver M.D. [address] [place] [phone] 02/11/2025 1:00 PM CDT Appointment Department of Radiation Oncology in [address] [address] Kiana Oliver M.D. [address] [place] [phone] 02/12/2025 1:00 PM CDT Appointment Department of Radiation Oncology in [address] [address] Kiana Oliver M.D. [address] [place] [phone] 02/12/2025 1:15 PM CDT Appointment Department of Radiation Oncology in [place], [place] [address] [place] [phone] Kiana Oliver M.D. [address] [place] [phone] 02/13/2025 1:00 PM CDT Appointment Department of Radiation Oncology in [place], [place] [address] [place] [phone] Kiana Oliver M.D. [address] [place] [phone] 02/16/2025 7:15 AM CDT Ancillary Procedure Department of Ophthalmology in [place], [place] [address] [place] [phone] Maida Tim O.D. [address] [place] [phone] 02/16/2025 8:00 AM CDT Comprehensive Visit Department of Ophthalmology in [place], [place] [address] [place] [phone] Desi Rasmussen O.D. [address] [place] [phone] 02/23/2025 8:15 AM CDT Clinical Communication Virtual Review in [place], [place] 200 [place] [address] 02/24/2025 9:40 AM CDT Office Visit Department of Dermatology in [place], [place] [address] [place] [phone] Felipe Stewart M.D. [address] [place] [phone] 02/24/2025 10:00 AM CDT Office Visit Jeyson milan [facility] for Transplantation and Clinical Regeneration in [place], [place] [address] [place] [phone] Aide Welch P.A.-C., M.S. [address] [place] [phone] 03/03/2025 9:00 AM CDT Telemedicine Department of Nutrition and Diabetes Education in [place], [place] [address] [place] [phone] Katelin Alcaraz, MARCUS, C.N.P., D.N.P. [address] [place] [phone] Mansi Ross M.S., RDN, LD [address] [place] [phone] documented as of this encounter Procedures Procedure Name Priority Date/Time Associated Diagnosis Comments GLUCOSE, FASTING, S/P Routine 12/26/2024 10:06 AM [employer]WORK BLACKSMITH Transplant Liver (HCC) Medication Therapy Custodial Not Anticoagulant 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 Remission (HCC) TACROLIMUS LEVEL, B Routine 12/26/2024 1 0:05 AM [employer]WORK BLACKSMITH Transplant Liver (HCC) Medication Therapy Custodial Not Anticoagulant 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 Remission (HCC) CBC WITH DIFFERENTIAL, B Routine 12/26/2024 10:05 AM [employer]WORK BLACKSMITH Transplant Liver (HCC) Medication Therapy Custodial Not Anticoagulant 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 Remission (HCC) BILIRUBIN DIRECT, S/P Routine 12/26/2024 10:05 AM [employer] TR[employer]WORK BLACKSMITH Transplant Liver (HCC) Medication Therapy Custodial Not Anticoagulant 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 Remission (HCC) COMPREHENSIVE METABOLIC PANEL, S/P Routine 12/26/2024 10:05 AM [employer] TRACKWORK BLACKSMITH Transplant Liver (HCC) Medication Therapy Director Of Valuation Not Anticoagulant 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 LAB BLOOD NON ADD-ON Final Result Performing Organization Address City/[facility]/ZIP Co de Phone Number [facility] [address] [place] [address], [place] OWAT [facility] [place] [address], [place] [address] * Bilirubin, Direct (12/26/2024 10:05 AM SPECIAL TRACKWORK BLACKSMITH) Bilirubin, Direct, P 0.2 0.0 - 0.3 mg/dL 12/26/2024 1:55 PM [employer]WORK BLACKSM[employer] OWAT Blood (Blood, Venous) 12/26/2024 10:05 AM [employer] TR[employer]WORK BLACKSMITH 12/26/2024 1:09 PM [employer] TR[employer]WORK BLACKSMITH us Deann Zhu APRN, C.N.P., M.S. LAB BLOOD ADD -ON Final Result Performing Organization Address City/[facility]/ZIP Co de Phone Number [facility] [address] [place] [address], [place] OW[place] [facility] [place] [address] [place] [address] * (ABNORMAL) CBC with Differential, Blood (12/26/2024 10:05 AM [employer] TR[employer]WORK BLACKSMITH) Hemoglobin 12.0(L) 13.2 - 16.6 g/dL 12/26/2024 10:28 AM [employer] TR[employer]WORK BLACKSMITH FB60 Hematocrit 37.2(L) 38.3 - 48.6 % 12/26/2024 10:28 AM [employer] TR[employer]WORK BLACKSMITH FB60 Erythrocytes 4.33(L) 4.35 - 5.65 x10(12)/L 12/26/2024 10:28 AM [employer]WORK BL[employer]SM[employer] FB60 MCV 85.9 78.2 - 97.9 fL 12/26/2024 10:28 AM [employer]WORK BLACKSM[employer] FB60 RBC Distrib Width 15.2(H) 11.8 - 14.5 % 12/26/2024 10:28 AM [employer]WORK BLACKSM[employer] FB60 Platelet Count 159 135 - 317 x10(9)/L 12/26/2024 10:28 AM [employer]WORK BLACKSM[employer] FB60 Leukocytes 4.4 3.4 - 9.6 x10(9)/L 12/26/2024 10:28 AM [employer]WORK BLACKSMITH FB60 Neutrophils 2.55 1.56 - 6.45 x10(9)/L 12/26/2024 10:28 AM [employer]WORK BLACKSM[employer] FB60 Lymphocytes 1.24 0.95 - 3.07 x10(9)/L 12/26/2024 10:28 AM [employer]WORK BLACKSM[employer] FB60 Monocytes 0.48 0.26 - 0.81 x10(9)/L 12/26/2024 10:28 AM [employer] BL[employer]SM[employer] FB60 Eosinophils 0.10 0.03 - 0.48 x10(9)/L 12/26/2024 10:28 AM [employer]WORK BLACKSMITH FB60 Basophils <0.04 0.01 - 0.08 x10(9)/L 12/26/2024 10:28 AM [employer] TR[employer]WORK BLACKSMITH FB60 Blood (Blood, Venous) 12/26/2024 10:05 AM [employer] TRACKWORK BLACKSMITH 12/26/2024 10:06 AM [employer] TRACKWORK BLACKSMITH us Deann Zhu APRN, C.N.P., M.S. LAB BLOOD ADD -ON Final Result [facility] [address] [place] [address], [facility] FB60 [facility] in [place] [address] [place] [address] * Tacrolimus, Trough (12/26/2024 10:05 AM SPECIAL TRACKWORK BLACKSMITH) Pathologist [facility] Tacrolimus, Trough 6.0 5.0-15.0 (Trough) ng/mL 12/27/2024 11:25 AM SPECIAL TRACKWORK BLACKSMITH [facility] Comment: ----ADDITIONAL INFORMATION---- Target steady-state trough concentrations vary depending on the type of transplant, concomitant immunosuppression, clinical/institutional protocols, and time post-transplant. Results should be interpreted in conjunction with this clinical information and any physical signs/symptoms of rejection/toxicity. Testing performed by Liquid Chromatography-Tandem Mass Spectrometry (LC-MS/MS). This test was developed and its performance characteristics determined by [facility] in a manner consistent with CLIA requirements. This test has not been cleared or approved by the U.S. Food and Drug Administration. Blood (Blood, Venous) 12/26/2024 10:05 AM SPECIAL TRACKWORK BLACKSMITH 12/27/2024 7:25 AM [employer] TRACKWORK BLACKSMITH us Deann Zhu APRN, C.N.P., M.S. LAB BLOOD NON ADD-ON Final Result [facility] [address] [place] [address] [facility] [address] [place] [address] [place] [address] * (ABNORMAL) Comprehensive Metabolic Panel (12/26/2024 10:05 AM SPECIAL TRACKWORK BLACKSMITH) Pathologist [facility] Potassium, P 4.3 3.6 - 5.2 mmol/L 12/26/2024 1:55 PM [employer]WORK BLACKSMITH OWAT Sodium, P 140 135 - 145 mmol/L 12/26/2024 1:55 PM [employer]WORK BL[employer]SM[employer] OWAT Chloride, P 103 98 - 107 mmol/L 12/26/2024 1:55 PM [employer] BL[employer]SM[employer] OWAT Bicarbonate, P 28 22 - 29 mmol/L 12/26/2024 1:55 PM [employer]WORK BLACKSM[employer] OWAT Anion Gap, P 9 7 - 15 12/26/2024 1:55 PM [employer] BL[employer]SM[employer] OWAT BUN (Blood Urea Nitrogen), P 28(H) 8 - 24 mg/dL 12/26/2024 1:55 PM [employer] BL[employer]SM[employer] OWAT Creatinine 0.89 0.74 - 1.35 mg/dL 12/26/2024 1:55 PM [employer] BL[employer] OWAT Estimated GFR (eGFR) >90 >=60 mL/min/BS A 12/26/2024 1:55 PM [employer]AT Comment: Estimated GFR calculated using the 2020 CKD_EPI creatinine equation. Calcium, Total, P 9.2 8.8 - 10.2 mg/dL 12/26/2024 1:55 PM [employer]WORK BLACKSMITH OWAT Glucose, P CANCELED mg/dL 12/26/2024 1:09 PM [employer]WORK BLACKSM[employer] OWAT Comment: Duplicate test request. Result canceled by the ancillary. Protein, Total, P 7.0 6.3 - 7.9 g/dL 12/26/2024 1:55 PM [employer]WORK BLACKSMITH OWAT Albumin, P 4.3 3.5 - 5.0 g/dL 12/26/2024 1:55 PM [employer]WORK BLACKSM[employer] OWAT Aspartate Aminotransferase (AST), P 22 8 - 48 U/L 12/26/2024 1:55 PM [employer] OWAT Alkaline Phosphatase, P 66 40 - 129 U/L 12/26/2024 1:55 PM [employer] OWAT Alanine Aminotransferase (ALT), P 11 7 - 55 U/L 12/26/2024 1:55 PM [employer]WORK BL[employer]SM[employer] OWAT Bilirubin, Total, P 0.5 0.0 - 1.2 mg/dL 12/26/2024 1:55 PM [employer]WORK BLACKSM[employer] OWAT Blood (Blood, Venous) 12/26/2024 10:05 AM SPECIAL TRACKWORK BLACKSMITH 12/26/2024 1:09 PM [employer]WORK BLACKSMITH us Deann Zhu APRN, C.N.P., M.S. LAB BLOOD ADD -ON Final Result [facility] [address] [place] [address], [facility] OWAT [facility] [place] [address] [place] [address] documented in this encounter Visit Diagnoses Diagnosis Transplant Liver (HCC) Medication Therapy Director Of Valuation Not Anticoagulant 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 Remission (HCC) documented in this encounter Additional Health Concerns Infection Onset Date Last Indicated Resolved Time Protective Environment 11/10/2023 11/10/2023 Assessment Noted Time PHQ-9 Depression Total Score: 19 025 12:23 PM [employer]WORK BLACKSMITH documented as of this encounter Care Teams Overseamer Relationship Specialty Start Date End Date Kelly Mendez APRN, C.N.P., D.N.P. [address] [place] [address] PCP - General Internal Medicine 12/05/23 Rhea [facility] [place] or Anabel [facility] lab Laboratory Medicine 02/26/23 documented as of this encounter
--- OUTSIDE RECORDS SUMMARY | 2025-02-02 23:58 | XMS_ITS | Encounter Summary ---
Author Organization [facility] Address [address] [place] [address] Care Team Providers Care Eligibility Examiner Name Role Phone Kelly Mendez APRN, C.N.P., D.N.P. Primary Car e Provider Reason for Visit * Reason Onset Date Comments PandaDoc Form 12/31/2024 HONORIO Taylor - [id number] Encounter Details Date Type Department Care Team (Latest Contact Info) Description 12/31/2024 Clinical Communication Department of Internal Medicine in [place], [place] [address] [place] [phone] Kelly Mendez APRN, C.N.P., D.N.P. [address] [place] [phone] [employer]anda[employer] Form (HONORIO Taylor - [id number]) Social History Tobacco Use Types Packs/Day Years Used Date Smoking Tobacco: Former Cigarettes Q uit: 2008 Passive Smoke Exposure: Never Smokeless Tobacco: Never Alcohol Use Standard Drinks/Week Comments Not Currently 0 (1 standard drink = 0.6 oz pur e alcohol) last 06/23/22 [facility] Utilities Answer Date Recorded In the past 12 months has [employer] electric, gas, oil, or water company threatened [...] week 02/04/2023 How often do you attend tenriism or religion serv ices? Patient declined 02/04/2023 Do you belong to any clubs o r organizations such as tenriism groups, unions, fraternal or athletic groups, or [...] Date Recorded PHQ-2 Score 6 11/23/2024 [facility] - Occupational [...] AM CDT Legal Sex Male 9:11 PM AMMONIUM NITRATE NEUTRALIZER Gender Identity na 09/07/2021 10:32 AM CDT Sexual Orientation Choose not to disclose 2020 10:32 AM CDT documented as of this encounter Miscellaneous Notes * Telephone Encounter - Miesha Sandoval - 12/31/2024 10:55 AM CST Received back completed form. Form faxed back to the listed facility. Scanned into [facility] NIUM NITRATE NEUTRALIZER * Telephone Encounter - Miesha Sandoval - 12/31/2024 8:49 AM CST Form was routed to Chanel Mendez APRN, CNP for electronic review/signature. ROLLER: HONORIO Taylor PHONE NUMBER: [phone] INFO REQUESTED: [id number] INSTRUCTIONS: Fax information to [phone] NIUM NITRATE NEUTRALIZER documented in this encounter Plan of Treatment Upcoming Encounters Date Type Department Care Team (Latest Contact Info) Description 02/03/2025 1:00 PM CDT Appointment Department of Radiation Oncology in [address] [phone] Kiana Oliver M.D. [address] [place] [phone] 02/04/2025 1:00 PM CDT Appointment Department of Radiation Oncology in [address] [phone] Kiana Oliver M.D. [address] [place] [phone] 02/05/2025 12:45 PM CDT Appointment Department of Radiation Oncology in [address] [phone] Kiana Oliver M.D. [address] [place] [phone] 02/05/2025 1:00 PM CDT Appointment Department of Radiation Oncology in [address] [phone] Kiana Oliver M.D. [address] [place] [phone] 02/06/2025 1:00 PM CDT Appointment Department of Radiation Oncology in [address] [phone] Kiana Oliver M.D. [address] [place] [phone] 02/09/2025 1:00 PM CDT Appointment Department of Radiation Oncology in [address] [phone] Kiana Oilver M.D. [address] [place] [address] 02/10/2025 1:00 PM CDT Appointment Department of Radiation Oncology in [address] [phone] Kiana Oliver M.D. [address] [place] [phone] 02/11/2025 1:00 PM CDT Appointment Department of Radiation Oncology in [address] [phone] Kiana Oliver M.D. [address] [place] [phone] 02/12/2025 1:00 PM CDT Appointment Department of Radiation Oncology in [address] [phone] Kiana Oliver M.D. [address] [place] [phone] 02/12/2025 1:15 PM CDT Appointment Department of Radiation Oncology in [address] [phone] Kiana Oliver M.D. [address] [place] [phone] 02/13/2025 1:00 PM CDT Appointment Department of Radiation Oncology in [place], [place] [address] [place] [phone] Kiana Oliver M.D. [address] [place] [phone] 02/16/2025 7:15 AM CDT Ancillary Procedure Department of Ophthalmology in [place], [place] [address] [place] [phone] Maida Tim O.D. [address] [place] [phone] 02/16/2025 8:00 AM CDT Comprehensive Visit Department of Ophthalmology in [place], [place] [address] [place] [phone] Desi Rasmussen O.D. [address] [place] [phone] 02/23/2025 8:15 AM CDT Clinical Communication Virtual Review in [place], [place] 200 [place] [address] 02/24/2025 9:40 AM CDT Office Visit Department of Dermatology in [place], [place] [address] [place] [phone] Felipe Stewart M.D. [address] [place] [phone] 02/24/2025 10:00 AM CDT [facility] in [place], [place] [address] [place] [phone] Aide Welch P.A.Willie., M.S. [address] [place] [phone] 03/03/2025 9:00 AM CDT Telemedicine Department of Nutrition and Diabetes Education in [place], [place] [address] [place] [address] Katelin Alcaraz APRN, C.N.P., D.N.P. [address] [place] [phone] Mansi Ross M.S., RDN, LD [address] [place] [phone] documented as of this encounter Visit Diagnoses Not on filedocumented in this encounter Additional Health Concerns Infection Onset Date Last Indicated Resolved Time Protective Environment 11/10/2023 11/10/2023 Assessment Noted Time PHQ-9 Depression Total Score: 19 025 12:23 PM AMMONIUM NITRATE NEUTRALIZER documented as of this encounter Care Teams Eligibility Examiner Relationship Specialty Start Date End Date Kelly Mendez APRN, C.N.P., D.N.P. [address] [place] [phone] PCP - General Internal Medicine 12/05/23 Rhea [facility] [place] or Anabel [facility] lab Laboratory Medicine 02/26/23 documented as of this encounter
--- OUTSIDE RECORDS SUMMARY | 2025-02-02 23:58 | XMS_ITS | Encounter Summary ---
Author Organization [facility] Address [address] [place] [address] Care Team Providers Care Bakery Pastry Internship Name Role Phone Kelly Mendez APRN C.N.PKathrin, D.N.P. Primary Car e Provider Reason for Referral * Radiation Therapy (Routine) - Authorized Specialty Diagnoses / Procedures Referred By Juanito ayala Referred To Contact Diagnoses 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 Procedures Initial Rad Onc Treatment Planning CT Simulation [place] IMRT RADIOTHERAPY PLAN Kiana Gresham M.D. [address] [place] [address] Phone: tel: fax: [facility] [place] [address] [place] [address] Referral ID Status Reason Start Date Expiration Date V isits Requested Visits Authorized [id number] Authorized 12/11/2024 03/10/2026 2 2 ICAL ASSISTANT Reason for Visit * Radiation Therapy (Routine) - Authorized Specialty Diagnoses / Procedures Referred By Juanito ayala Referred To Contact Diagnoses 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 Procedures Initial Rad Onc Treatment Planning CT Simulation [place] IMRT RADIOTHERAPY PLAN Kiana Gresham M.D. [address] [place] [address] Phone: tel: fax: T [facility] [place] [address] [place] [address] Referral ID Status Reason Start Date Expiration Date V isits Requested Visits Authorized [id number] Authorized 12/11/2024 03/10/2026 2 2 Encounter Details Date Type Department Care Team (Latest Contact Info) Description 12/23/2024 12:48 PM SURGICAL ASSISTANT - 12/23/2024 4:19 PM SURGICAL ASSISTANT Hospital Encounter Department of Radiation Oncology in [place], [place] [address] [place] [phone] Kiana Oliver M.D. [address] [place] [address] 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 Social History Tobacco Use Types Packs/Day Years Used Date Smoking Tobacco: Former Cigarettes Q uit: 2008 Passive Smoke Exposure: Never Smokeless Tobacco: Never Alcohol Use Standard Drinks/Week Comments Not Currently 0 (1 standard drink = 0.6 oz pur e alcohol) last 06/23/22 [facility] Utilities Answer Date Recorded In the past 12 months has [employer], gas, oil, or water [employer] threatened to shut off services in your [...] week 02/04/2023 How often do you attend sabianism or shinto serv ices? Patient declined 02/04/2023 Do you belong to any clubs o r organizations such as sabianism groups, unions, fraternal or athletic groups, or [...] Answer Date Recorded PHQ-2 Score 6 [facility]2024 [facility] - Occupational Stress Questionnaire Answer Date [...] AM CDT Legal Sex Male 9:11 PM SURGICAL ASSISTANT Gender Identity na 09/07/2021 10:32 AM [...] diabetes control. 1 each 12/12/2023 11:05 AM SURGICAL ASSISTANT 12/11/2023 calcium citrate-vitamin D3 (Citracal + D3) 315 mg-5 mcg (200 Unit) per tablet Take 1 tablet by mouth 2 (two) times a day with meals. 200 tablet 3 10/20/2024 10/20/20 25 famotidine (Pepcid) 20 mg tablet Take 1 tablet (20 mg total) by mouth 2 (two) times a day as needed for heartburn. 60 tablet 1 11/14/2024 12:18 PM SURGICAL ASSISTANT 11/14/2024 fluoride, sodium, (PreviDent) 1.1 % gel [...] daily. 90 tablet 3 10/29/2024 11:46 AM SURGICAL ASSISTANT 06/05/2024 gabapentin (NEURONTIN) 300 mg capsule Take 2 capsules (600 mg total) by mouth at bedtime. 04/07/2024 HYDROcodone-acetami nophen ([place]) 7.5-325 mg per tabletIndications:C hronic Pain/Nonacute Pain [...] 911. 15 mL 2 11/14/2024 12:18 PM SURGICAL ASSISTANT 11/14/2024 ondansetron ODT (Zofran-ODT) 4 mg disintegrating tablet Dissolve 1 tablet (4 mg total) in the mouth every 8 (eight) hours as needed for nausea or vomiting. 30 tablet 3 11/26/2024 3:29 PM SURGICAL ASSISTANT 06/05/2024 pen needle, diabetic (BD Ultra-Fine Short Pen Needle) 31 gauge x 5/16 needle Use 3 times a day 300 each 1 11/14/2024 12:18 PM SURGICAL ASSISTANT 11/14/2024 rOPINIRole (Requip) 0.25 mg tabletIndications:R estless Leg Syndrome Take 2 tablets (0.5 mg total) by mouth at bedtime as needed (RLS). 30 tablet 11/26/2024 3:29 PM SURGICAL ASSISTANT 11/13/2024 rosuvastatin (Crestor) 5 mg tablet Take 1 tablet (5 mg total) by mouth daily. 90 tablet 3 12/29/2024 1:25 PM SURGICAL ASSISTANT 06/05/2024 sennosides-docusate sodium (Stool Softener-Stimulant Laxat) 8.6-50 mg per tabletIndications:T ransplant Liver (HCC),Medication Therapy Usp Not Anticoagulant,Drug Induced Constipation Take 1 tablet by mouth 2 (two) times a day. 100 tablet 02/22/2024 5:09 PM CDT 02/22/2024 blood-glucose sensor (FreeStyle Apryl 3 Sensor) deviceIndications:D iabetes Mellitus Type 2 Hyperglycemia (HCC) 1 each every 14 (fourteen) days. 6 each 3 11/26/2024 3:29 PM SURGICAL ASSISTANT 09/04/2024 01/29/20 25 insulin glargine 100 unit/mL [...] 1 mg capsuleIndications: Transplant Liver (HCC),Medication Therapy Nurse Head Not Anticoagulant Take 4 capsules (4 mg [...] planning. CT images were transferred to the [employer] treatment planning system, after a reference isocenter was determined and marked. Segmentation and treatment planning will take place prior to treatment delivery. Patient set up and imaging was appropriate and completed without incident. Web Operations Manager use:No Cosigned by Kiana Oliver M.D. at 12/23/2024 4:19 PM SURGICAL ASSISTANT ICAL ASSISTANT ICAL ASSISTANT Associated attestation - Kiana Oliver M.D. - 12/23/2024 4:19 PM SURGICAL ASSISTANT I was present during all critical and guadarrama portions of the procedure(s) and immediately available [facility] the entire duration. See note for details. documented in this encounter Plan of Treatment Upcoming Encounters Date Type Department Care Team (Latest Contact Info) Description 02/03/2025 1:00 PM CDT Appointment Department of Radiation Oncology in [address] [address] Kiana Oliver M.D. [address] [place] [phone] 02/04/2025 1:00 PM CDT Appointment Department of Radiation Oncology in [address] [address] Kiana Oliver M.D. [address] [place] [phone] 02/05/2025 12:45 PM CDT Appointment Department of Radiation Oncology in [address] [address] Kiana Oliver M.D. [address] [place] [phone] 02/05/2025 1:00 PM CDT Appointment Department of Radiation Oncology in [address] [address] Kiana Oliver M.D. [address] [place] [phone] 02/06/2025 1:00 PM CDT Appointment Department of Radiation Oncology in [place], [place] [address] [place] [phone] Kiana Oliver M.D. [address] [place] [address] 02/09/2025 1:00 PM CDT Appointment Department of Radiation Oncology in [address] [address] Kiana Oliver M.D. [address] [place] [address] 02/10/2025 1:00 PM CDT Appointment Department of Radiation Oncology in [place], [place] [address] [place] [phone] Kiana Oliver M.D. [address] [place] [phone] 02/11/2025 1:00 PM CDT Appointment Department of Radiation Oncology in [place], [place] [address] [place] [phone] Kiana Oliver M.D. [address] [place] [phone] 02/12/2025 1:00 PM CDT Appointment Department of Radiation Oncology in [address] [address] Kiana Oliver M.D. [address] [place] [phone] 02/12/2025 1:15 PM CDT Appointment Department of Radiation Oncology in [address] [address] Kiana Oliver M.D. [address] [place] [phone] 02/13/2025 1:00 PM CDT Appointment Department of Radiation Oncology in [address] [address] Kiana Oliver M.D. [address] [place] [phone] 02/16/2025 7:15 AM CDT Ancillary Procedure Department of Ophthalmology in [place], [place] [address] [place] [phone] Maida Tim O.D. [address] [place] [phone] 02/16/2025 8:00 AM CDT Comprehensive Visit Department of Ophthalmology in [place], [place] [address] [place] [phone] Desi Rasmussen O.D. [address] [place] [phone] 02/23/2025 8:15 AM CDT Clinical Communication Virtual Review in [place], [place] 200 [place] [address] 02/24/2025 9:40 AM CDT Office Visit Department of Dermatology in [address] [phone] Felipe Stewart M.D. [address] [place] [phone] 02/24/2025 10:00 AM CDT Office Visit Jeyson Kevin [facility] for Transplantation and Clinical Regeneration in [place], [place] [address] [place] [phone] Aide Welch P.A.-C., M.S. [address] [place] [phone] 03/03/2025 9:00 AM CDT Telemedicine Department of Nutrition and Diabetes Education in [place], [place] [address] [place] [phone] Katelin Alcaraz, WATCH REPAIR TECHNICIAN, C.N.P., D.N.P. [address] [place] [phone] Mansi Ross M.S., RDN, LD [address] [place] [phone] documented as of this encounter Procedures Procedure Name Priority Date/Time Associated Diagnosis Comments INITIAL RAD ONC TREATMENT PLANNING CT SIMULATION Routine 12/23/2024 1:00 PM SURGICAL ASSISTANT 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 documented in this encounter Results * Initial Rad Onc Treatment Planning CT Simulation (12/23/2024 1:00 PM SURGICAL ASSISTANT) Narrative KELLEN PEREZ - 12/23/2024 1:00 PM SURGICAL ASSISTANT Macrina Bernal 12/23/2024 2:03 PM Initial Rad [...] Depression Total Score: 19 025 12:23 PM SURGICAL ASSISTANT documented as of this encounter Care Teams Bakery Pastry Internship Relationship Specialty Start Date End Date Kelly Mendez APRN, C.N.P., D.N.P. [address] [phone] PCP - General Internal Medicine 12/05/23 [facility] [place] [facility] lab Laboratory Medicine 02/26/23 documented as of this encounter
--- OUTSIDE RECORDS SUMMARY | 2025-02-02 23:59 | XMS_ITS | Encounter Summary ---
Author Organization [facility] Address [address] [place] [address] Care Team Providers Care Granite Polisher Machine Name Role Phone Wally Daniel MD Primary Care Provider Unavailable Wally Daniel MD Unavailable Unavai lable No Ref-Primary, Physician Primary Care Provider Tennille Goddard APRN CHLORINE PLANT OPERATOR Unavailable [phone] Tennille Goddard APRN CHLORINE PLANT OPERATOR Unavailable [phone] Beatris Ty [facility] Unavailable [phone] Dov Alston [facility] Unavailable Unavailable Tennille Goddard APRN CHLORINE PLANT OPERATOR Primary Care Provider + Dov Alston [facility] Unavailable Unavailable Dov Alston [facility] Unavailable Unavailable Encounter Details Date Type Department Care Team (Late st Contact Info) Description 11/02/2014 [facility] Medical Advice [address] [place] [phone] Dov Alston, [facility] [address] [place] [address] Social History Tobacco Use Types Packs/Day Years [...] on file 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 Gender Identity Not on file Sexual Orientation Not on file 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 as of this encounter Plan of Treatment Not on file documented as of this encounter Visit Diagnoses Not on filedocumented in this encounter Care Teams Granite Polisher Machine Relationship Specialty Start Date End Date Wally Daniel MD PCP - General 12/17/03 12/08/18 Wally Daniel MD PCP - Assigned PCP 10/16/10 12/14/18 No Ref-Primary, Physician PCP - General 12/09/18 08/17/19 Tennille Goddard APRN CHLORINE PLANT OPERATOR [address] [place], [place] [phone] PCP - Assigned PCP 12/15/18 01/21/19 Tennille Goddard APRN CHLORINE PLANT OPERATOR [address] [place], [place] [phone] PCP - General Nurse Practitioner - Family 08/18/19 Tennille Goddard APRN CHLORINE PLANT OPERATOR [address] [place], [place] [phone] Assigned PCP 12/15/18 01/07/22 Beatris Ty [facility] [address] [place] [address] Pharmacist Pharmacist 04/08/19 01/12/21 Dov Alston [facility] [address] [place] [address] Pharmacist Pharmacist 06/16/19 Dov Alston [facility] [address] [place] [address] Assigned MTM Pharmacist 04/15/22 08/04/22 [facility] [address] [place] [address] Assigned MTM Pharmacist 08/16/22 10/27/22 documented as of this encounter
--- OUTSIDE RECORDS SUMMARY | 2025-02-02 23:59 | XMS_ITS | Encounter Summary ---
Author Organization [facility] Address [address] [place] [address] Care Team Providers Care Outsole Cementer Machine Name Role Phone AndreaJuddKellylilia Buchanan APRN C.N.P., D.N.P. Primary Car e Provider Reason for Visit * Reason Onset Date Comments Tacrolimus Adjustment Protocol Liver 12/01/2024 Encounter Details Date Type Department Care Team (Latest Contact Info) Description 12/01/2024 Clinical Communication Jeyson Brown [facility] Clinical [facility] in [place], [place] [address] [place] [address] Ashly Mata M.SKathrinN., R.N. [address] [place] [address] Tacrolimus Adjustment Protocol Liver Social History Tobacco Use Types Packs/Day Years Used Date Smoking Tobacco: Former Cigarettes Q uit: 2008 Passive Smoke Exposure: Never Smokeless Tobacco: Never Alcohol Use Standard Drinks/Week Comments Not Currently 0 (1 standard drink = 0.6 oz pur e alcohol) last 06/23/22 [facility] Utilities Answer Date Recorded In the past 12 months has e electric, gas, oil, or water [employer] threatened to shut off services in your [...] week 02/04/2023 How often do you attend methodist or protestant serv ices? Patient declined 02/04/2023 Do you belong to any clubs o r organizations such as methodist groups, unions, fraternal or athletic groups, or [...] Date Recorded PHQ-2 Score 6 11/23/2024 [facility] - Occupational Stress [...] AM CDT Legal Sex Male 9:11 PM PHOTO OFFSET PRINTER Gender Identity na 09/07/2021 10:32 AM CDT Sexual Orientation Choose not to disclose 2020 10:32 AM CDT documented as of this encounter Miscellaneous Notes * Telephone Encounter - Cecelia Andres, D., R.Ph. - 12/01/2024 9:21 AM CST Transplanted Organ and Date:11/10/2023 (Liver) Steam And Power Superintendent: Christy Abad Active Patient Thresholds Lab Low High Effective Since Comment Tacrolimus Level 5 6 04/21/2024 Recent Labs 11/27/24 0944 TACROLIMUS 3.4 L Dose (mg) 3 mg BID Adjustment Per patient This was exactly a 12 hour trough. Current dose of tacrolimus is 3mg morning and 3mg in evening. He missed Sunday as he was back at [facility] getting his wounds cleaned up and redressed because he bled all over Sunday night. So, just completely forgot. He is also taking the antibiotic Cefadroxil 500mg for 7 days. He also started Fosamax taking once every Sunday and has had 2 doses. He had been doing tube feeds taking YouFig formula. This formula made him nauseous after. [...] in 1 week(s). Updated prescription sent to [facility] O OFFSET PRINTER * Telephone Encounter - Ashly Mata M.S.N., R.N. - 12/01/2024 8:37 AM PHOTO OFFSET PRINTER Transplanted Organ and Date: 11/10/2023 (Liver) RN [...] (L) 11/27/2024 Pharmacy patient uses for immunosuppression: [facility] Any other pertinent information related to above (please comment on any pertinent answers above)? Per patient This was exactly a 12 hour trough. Current dose of tacrolimus is 3mg morning and 3mg in evening. He missed Sunday as he was back at [place] getting his wounds cleaned up and redressed because he bled all over Sunday night. So, just completely forgot. He is also taking the antibiotic Cefadroxil 500mg for 7 days. He also started Fosamax taking once every Sunday and has had 2 doses. He had been doing tube feeds taking YouFig formula. This formula made him nauseous after. every feed so the dietitian had him stop of the tube feeds as of Sunday to see if he could consume enough calories by mouth. He has some body aches but this is pretty normal. Patient currently has a G tube to treat severe malnutrition O OFFSET PRINTER documented in this encounter Plan of Treatment Upcoming Encounters Date Type Department Care Team (Latest Contact Info) Description 02/03/2025 1:00 PM CDT Appointment Department of Radiation Oncology in [address] [phone] Kiana Oliver M.D. 200 [place] [address] 02/04/2025 1:00 PM CDT Appointment Department of Radiation Oncology in [address] [phone] Kiana Oliver M.D. [address] [place] [address] 02/05/2025 12:45 PM CDT Appointment Department of Radiation Oncology in [address] [address] Kiana Oliver M.D. 200 [place] [address] 02/05/2025 1:00 PM CDT Appointment Department of Radiation Oncology in [address] [phone] Kiaan Oliver M.D. [address] [place] [address] 02/06/2025 1:00 PM CDT Appointment Department of Radiation Oncology in [place], [place] [address] [place] [address] Kiana Oliver M.D. [address] [place] [address] 02/09/2025 1:00 PM CDT Appointment Department of Radiation Oncology in [place], [place] [address] [place] [phone] Kiana Oliver M.D. [address] [place] [phone] 02/10/2025 1:00 PM CDT Appointment Department of Radiation Oncology in [place], [place] [address] [place] [address] Kiana Oliver M.D. [address] [place] [phone] 02/11/2025 1:00 PM CDT Appointment Department of Radiation Oncology in [place], [place] [address] [place] [phone] Kiana Oliver M.D. [address] [place] [phone] 02/12/2025 1:00 PM CDT Appointment Department of Radiation Oncology in [place], [place] [address] [place] [address] Kiana Oliver M.D. [address] [place] [phone] 02/12/2025 1:15 PM CDT Appointment Department of Radiation Oncology in [place], [place] [address] [place] [phone] Kiana Oliver M.D. [address] [place] [phone] 02/13/2025 1:00 PM CDT Appointment Department of Radiation Oncology in [place], [place] [address] [place] [phone] Kiana Oliver M.D. [address] [place] [phone] 02/16/2025 7:15 AM CDT Ancillary Procedure Department of Ophthalmology in [place], [place] [address] [place] [phone] Maida Tim O.D. [address] [place] [phone] 02/16/2025 8:00 AM CDT Comprehensive Visit Department of Ophthalmology in [place], [place] [address] [place] [phone] Desi Rasmussen O.D. [address] [place] [phone] 02/23/2025 8:15 AM CDT Clinical Communication Virtual Review in [place], [place] 200 [place] [address] 02/24/2025 9:40 AM CDT Office Visit Department of Dermatology in [address] [address] Felipe Stewart M.D. [address] [place] [phone] 02/24/2025 10:00 AM CDT [facility] [place], [place] [address] [place] [phone] Aide Welch P.A.-C., M.S. [address] [place] [phone] 03/03/2025 9:00 AM CDT Telemedicine Department of Nutrition and Diabetes Education in [place], [place] [address] [place] [phone] Katelin Alcaraz APRN C.N.P., D.N.P. [address] [place] [phone] Mansi Ross M.S., RDN, LD [address] [place] [phone] documented as of this encounter Visit Diagnoses Diagnosis Transplant Liver (HCC) Medication Therapy Retirement Not Anticoagulant documented in this encounter Additional Health Concerns Infection Onset Date Last Indicated Resolved Time Protective Environment 11/10/2023 11/10/2023 Assessment Noted Time PHQ-9 Depression Total Score: 19 025 12:23 PM PHOTO OFFSET PRINTER documented as of this encounter Care Teams Outsole Cementer Machine Relationship Specialty Start Date End Date Kelly Mendez APRN, C.N.P., D.N.P. [address] [place] [address] PCP - General Internal Medicine [facility] Laboratory Medicine 02/26/23 documented as of this encounter
--- OUTSIDE RECORDS SUMMARY | 2025-02-02 23:59 | XMS_ITS | Encounter Summary ---
Author Organization [facility] Address [address] [place] [address] Care Team Providers Care Pre Planning Advisor Name Role Phone Wally Daniel MD Primary Care Provider Unavailable Wally Daniel MD Unavailable Unavai lable No Ref-Primary, Physician Primary Care Provider Tennille Goddard ELEMENTARY SCIENCE TEACHER EMBEDDER Unavailable [phone] Tennille Goddard APRN EMBEDDER Unavailable [phone] Beatris Ty [facility] Unavailable [phone] Dov Alston [facility] Unavailable Unavailable Tennille Goddard APRN EMBEDDER Primary Care Provider + Dov Alston RP Unavailable Unavailable Dov Alston RP Unavailable Unavailable Encounter Details Date Type Department Care Team (Late st Contact Info) Description 06/06/2014 MyC Medical Advice [address] [address] Radha Newsome RN Social History [...] on file 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 Gender Identity Not on file Sexual Orientation Not on file 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 as of this encounter Plan of Treatment Not on file documented as of this encounter Visit Diagnoses Not on filedocumented in this encounter Care Teams Pre Planning Advisor Relationship Specialty Start Date End Date Wally Daniel MD PCP - General 12/17/03 12/08/18 Wally Daniel MD PCP - Assigned PCP 10/16/10 12/14/18 No Ref-Primary, Physician PCP - General 12/09/18 08/17/19 Tennille Goddard APRN EMBEDDER [address] [place] [address] PCP - Assigned PCP 12/15/18 01/21/19 Tennille Goddard APRN EMBEDDER [address] [place] [address] PCP - General Nurse Practitioner - Family 08/18/19 Tennille Goddard APRN EMBEDDER [address] [place] [address] Assigned PCP 12/15/18 01/07/22 Beatris Ty [facility] [address] [place] [address] Pharmacist Pharmacist 04/08/19 01/12/21 Dov Alston [facility] [address] [place] [address] Pharmacist Pharmacist 06/16/19 Dov Alston [facility] [address] [place] [address] Assigned MTM Pharmacist 04/15/22 08/04/22 Dov Alston [facility] [address] [place] [address] Assigned MTM Pharmacist 08/16/22 10/27/22 documented as of this encounter
--- OUTSIDE RECORDS SUMMARY | 2025-02-02 23:59 | XMS_ITS | Encounter Summary ---
Author Organization [place] Address [address] [place] [address] Care Team Providers Care Natural Sciences Department Chair Name Role Phone Wally Daniel MD Primary Care Provider Unavailable Wally Daniel MD Unavailable Unavai lable No Ref-Primary, Physician Primary Care Provider Tennille Goddard APRN COIL FORMER Unavailable [phone] Tennille Goddard APRN COIL FORMER Unavailable [phone] Beatris Ty [facility] Unavailable [phone] Dov Alston [facility] Unavailable Unavailable Tennille Goddard APRN COIL FORMER Primary Care Provider + Dov Alston [facility] Unavailable Unavailable Dov Alston [facility] Unavailable Unavailable Encounter Details Date Type Department Care Team (Late st Contact Info) Description 08/07/2016 MyC Medical Advice [address] [place] [phone] Macrina Davidson [facility] Social History Tobacco Use Types Packs/Day [...] on file 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 Gender Identity Not on file Sexual [...] documented as of this encounter Care Teams Natural Sciences Department Chair Relationship Specialty Start Date End Date Wally Daniel MD PCP - General 12/17/03 12/08/18 Wally Daniel MD PCP - Assigned PCP 10/16/10 12/14/18 No Ref-Primary, Physician PCP - General 12/09/18 08/17/19 Tennille Goddard APRN COIL FORMER [address] [place] [address] PCP - Assigned PCP 12/15/18 01/21/19 Tennille Goddard APRN COIL FORMER [address] [place] [address] PCP - General Nurse Practitioner - Family 08/18/19 Tennille Goddard APRN COIL FORMER [address] [place] [address] Assigned PCP 12/15/18 01/07/22 Beatris Ty [facility] 3033 [place] [address] Pharmacist Pharmacist 04/08/19 01/12/21 Dov Alston [facility] [address] [place] [address] Pharmacist Pharmacist 06/16/19 Dov Alston [facility] [address] [place] [address] Assigned MTM Pharmacist 04/15/22 08/04/22 Dov Alston [facility] [address] [place] [address] Assigned MTM Pharmacist 08/16/22 10/27/22 documented as of this encounter
--- OUTSIDE RECORDS SUMMARY | 2025-02-02 23:59 | XMS_ITS | Encounter Summary ---
Author Organization [place] Address [address] [place] [address] Care Team Providers Care Lawn Sprinkler Servicer Name Role Phone Wally Daniel MD Primary Care Provider Unavailable Wally Daniel MD Unavailable Unavai lable No Ref-Primary, Physician Primary Care Provider Tennille Goddard APRN MODELING INSTRUCTOR Unavailable [phone] Tennille Goddard APRN MODELING INSTRUCTOR Unavailable [phone] Beatris Ty [facility] Unavailable [phone] Dov Alston [facility] Unavailable Unavailable Tennille Goddard APRN MODELING INSTRUCTOR Primary Care Provider + Dov Alston RP Unavailable Unavailable Dov Alston RPH Unavailable Unavailable Reason for Visit * Reason Comments Health Coaching - [facility] - Partner Marketing Manager Only Encounter Details Date Type Department Care Team (Late st Contact Info) Description 05/06/2013 Abstract M [address] [address] Wally Daniel MD Social History [...] on file 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 Gender Identity Not on file Sexual Orientation Not on file 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 as of this encounter Plan of Treatment Not on file documented as of this encounter Visit Diagnoses Not on filedocumented in this encounter Care Teams Lawn Sprinkler Servicer Relationship Specialty Start Date End Date Wally Daniel MD PCP - General 12/17/03 12/08/18 Wally Daniel MD PCP - Assigned PCP 10/16/10 12/14/18 No Ref-Primary, Physician PCP - General 12/09/18 08/17/19 Tennille Goddard APRN MODELING INSTRUCTOR [address] [place], [place] [id number] PCP - Assigned PCP 12/15/18 01/21/19 Tennille Goddard APRN MODELING INSTRUCTOR [address] [place], [place] [id number] PCP - General Nurse Practitioner - Family 08/18/19 Tennille Goddard APRN MODELING INSTRUCTOR [address] [place], [place] [id number] Assigned PCP 12/15/18 01/07/22 Beatris Ty [facility] [address] [place] [address] Pharmacist Pharmacist 04/08/19 01/12/21 Dov Alston [facility] [address] [place] [address] Pharmacist Pharmacist 06/16/19 Dov Alston [facility] [address] [place] [address] Assigned MTM Pharmacist 04/15/22 08/04/22 [facility] [address] [place] [address] Assigned MTM Pharmacist 08/16/22 10/27/22 documented as of this encounter
--- OUTSIDE RECORDS SUMMARY | 2025-02-02 23:59 | XMS_ITS | Encounter Summary ---
Author Organization [place] Address [address] [place] [address] Care Team Providers Care Chrome Worker Name Role Phone Wally Daniel MD Primary Care Provider Unavailable Wally Daniel MD Unavailable Unavai lable No Ref-Primary, Physician Primary Care Provider Tennille Goddard APRN FIELD TRAINER Unavailable [phone] Tennille Goddard APRN FIELD TRAINER Unavailable [phone] Beatris Ty [facility] Unavailable [phone] Dov Alston [facility] Unavailable Unavailable Tennille Goddard APRN FIELD TRAINER Primary Care Provider + Dov Alston [facility] Unavailable Unavailable Dov Alston [facility] Unavailable Unavailable Encounter Details Date Type Department Care Team (Late st Contact Info) Description 11/25/2014 MyC Medical Advice [address] [place] [phone] Dov Alston, [facility] [address] [place] [address] Social History Tobacco Use Types Packs/Day Years [...] on file 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 Gender Identity Not on file Sexual Orientation Not on file 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 as of this encounter Plan of Treatment Not on file documented as of this encounter Visit Diagnoses Not on filedocumented in this encounter Care Teams Chrome Worker Relationship Specialty Start Date End Date Wally Daniel MD PCP - General 12/17/03 12/08/18 Wally Daniel MD PCP - Assigned PCP 10/16/10 12/14/18 No Ref-Primary, Physician PCP - General 12/09/18 08/17/19 Tennille Goddard APRN FIELD TRAINER [address] [place], [place] [address] PCP - Assigned PCP 12/15/18 01/21/19 Tennille Goddard APRN FIELD TRAINER [address] [place], [place] [id number] PCP - General Nurse Practitioner - Family 08/18/19 Tennille Goddard APRN FIELD TRAINER [address] [address] [place] [phone] Assigned PCP 12/15/18 01/07/22 Beatris Ty [facility] [address] [place] [address] Pharmacist Pharmacist 04/08/19 01/12/21 Dov Alston [facility] [address] [place] [address] Pharmacist Pharmacist 06/16/19 Dov Alston [facility] [address] [place] [address] Assigned MTM Pharmacist 04/15/22 08/04/22 [facility] [address] [address] Assigned MTM Pharmacist 08/16/22 10/27/22 documented as of this encounter
--- OUTSIDE RECORDS SUMMARY | 2025-02-02 23:59 | XMS_ITS | Encounter Summary ---
Author Organization [place] Address [address] [place] [address] Care Team Providers Care Ply Bander Name Role Phone Wally Daniel MD Primary Care Provider Unavailable Wally Daniel MD Unavailable Unavai lable No Ref-Primary, Physician Primary Care Provider Tennille Goddard APRN RETAIL ANALYST Unavailable [phone] Tennille Goddard APRN RETAIL ANALYST Unavailable [phone] Beatris Ty [facility] Unavailable [phone] Dov Alston [facility] Unavailable Unavailable Tennille Goddard APRN RETAIL ANALYST Primary Care Provider + Dov Alston [facility] Unavailable Unavailable Dov Alston RP Unavailable Unavailable Encounter Details Date Type Department Care Team (Late st Contact Info) Description 10/23/2016 MyC Medical Advice [address] [address] Wally Daniel MD Social History [...] on file 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 Gender Identity Not on file Sexual Orientation [...] documented as of this encounter Care Teams Ply Bander Relationship Specialty Start Date End Date Wally Daniel MD PCP - General 12/17/03 12/08/18 Wally Daniel MD PCP - Assigned PCP 10/16/10 12/14/18 No Ref-Primary, Physician PCP - General 12/09/18 08/17/19 Tennille Goddard APRN RETAIL ANALYST [address] [facility] [place] [address] PCP - Assigned PCP 12/15/18 01/21/19 Tennille Goddard APRN RETAIL ANALYST [address] [place] [address] PCP - General Nurse Practitioner - Family 08/18/19 Tennille Goddard APRN RETAIL ANALYST [address] [facility] [place] [address] Assigned PCP 12/15/18 01/07/22 Beatris Ty [facility] 3033 [place] [address] Pharmacist Pharmacist 04/08/19 01/12/21 Dov Alston [facility] [address] [place] [address] Pharmacist Pharmacist 06/16/19 Dov Alston [facility] [address] [place] [address] Assigned MTM Pharmacist 04/15/22 08/04/22 Dov Alston [facility] [address] [place] [address] Assigned [place] Pharmacist 08/16/22 10/27/22 documented as of this encounter
--- OUTSIDE RECORDS SUMMARY | 2025-02-02 23:59 | XMS_ITS | Encounter Summary ---
Author Organization [facility] Address [address] [place] [address] Care Team Providers Care Claim Inspector Name Role Phone Kelly Mendez APRN C.N.P., [...] 0.6 oz pur e alcohol) last 06/23/22 [facility] Utilities Answer Date Recorded In the past 12 months has [facility] [employer], gas, oil, or water [employer] threatened to shut off services in your [...] How often do you attend [facility]aritan or latter-day serv ices? Patient declined 02/04/2023 [...] Answer Date Recorded PHQ-2 Score 5 04/16/2024 [facility] - Occupational [...] AM CDT Legal Sex Male 9:11 PM CLAIMS ADJUSTER Gender Identity na 09/07/2021 10:32 AM CDT Sexual Orientation Choose not to disclose 2020 10:32 AM CDT documented as of this encounter Plan of Treatment Upcoming Encounters Date Type Department Care Team (Latest Contact Info) Description 02/03/2025 1:00 PM CDT Appointment Department of Radiation Oncology in [address] [address] Kiana Oliver M.D. 200 [place] [address] 02/04/2025 1:00 PM CDT Appointment Department of Radiation Oncology in [place] [address] [place] [address] Kiana Oliver M.D. 200 [place] [address] 02/05/2025 12:45 PM CDT Appointment Department of Radiation Oncology in [address] [address] Kiana Oliver M.D. [address] [place] [address] 02/05/2025 1:00 PM CDT Appointment Department of Radiation Oncology in [place], [place] [address] [place] [address] Kiana Oliver M.D. [address] [place] [address] 02/06/2025 1:00 PM CDT Appointment Department of Radiation Oncology in [address] [address] Kiana Oliver M.D. [address] [place] [address] 02/09/2025 1:00 PM CDT Appointment Department of Radiation Oncology in [place], [place] [address] [place] [address] Kiana Oliver M.D. [address] [place] [address] 02/10/2025 1:00 PM CDT Appointment Department of Radiation Oncology in [place], [place] [address] [place] [address] Kiana Oliver M.D. [address] [place] [address] 02/11/2025 1:00 PM CDT Appointment Department of Radiation Oncology in [place], [place] [address] [place] [address] Kiana Oliver M.D. [address] [place] [address] 02/12/2025 1:00 PM CDT Appointment Department of Radiation Oncology in [place], [place] [address] [place] [address] Kiana Oliver M.D. [address] [place] [address] 02/12/2025 1:15 PM CDT Appointment Department of Radiation Oncology in [place], [place] [address] [place] [phone] Kiana Oliver M.D. [address] [place] [address] 02/13/2025 1:00 PM CDT Appointment Department of Radiation Oncology in [place], [place] [address] [place] [address] Kiana Oliver M.D. [address] [place] [address] 02/16/2025 7:15 AM CDT Ancillary Procedure Department of Ophthalmology in [place], [place] [address] [place] [phone] Maida Tim O.D. [address] [place] [address] 02/16/2025 8:00 AM CDT Comprehensive Visit Department of Ophthalmology in [place], [place] [address] [place] [phone] Desi Rasmussen O.D. [address] [place] [phone] 02/23/2025 8:15 AM CDT Clinical Communication Virtual Review in [place], [place] 200 [place] [address] 02/24/2025 9:40 AM CDT Office Visit Department of Dermatology in [place], [place] [address] [place] [address] Felipe Stewart M.D. [address] [place] [address] 02/24/2025 10:00 AM CDT Office Visit [facility] in [place], [place] [address] [place] [address] Aide Welch P.A.-C., M.S. [address] [place] [address] 03/03/2025 9:00 AM CDT Telemedicine Department of Nutrition and Diabetes Education in [place], [place] [address] [place] [address] Katelin Alcaraz APRN, C.N.P., D.N.P. [address] [place] [phone] Mansi Ross M.S., RDN, LD [address] [place] [address] documented as of this encounter Visit Diagnoses Not on filedocumented in this encounter Additional Health Concerns Infection Onset Date Last Indicated Resolved Time Protective Environment 11/10/2023 11/10/2023 Assessment Noted Time PHQ-9 Depression Total Score: 10 023 10:35 AM CDT documented as of this encounter Care Teams Claim Inspector Relationship Specialty Start Date End Date Kelly Mendez APRN, C.N.P., D.N.P. [address] [place] [address] PCP - General Internal Medicine 12/05/23 [place] [facility] Lab Rhea Little [facility] lab Laboratory Medicine 02/26/23 documented as of this encounter
--- OUTSIDE RECORDS SUMMARY | 2025-02-02 23:59 | XMS_ITS | Encounter Summary ---
Author Organization [place] Address [address] [place] [address]. [place] [address] Care Team Providers Care Fermenter Wine Name Role Phone Tennille Goddard APRN TRANSLATOR INTERPRETER Unavailable [phone] Beatris Ty [facility] Unavailable [phone] Dov Alston [facility] Unavailable Unavailable Tennille Goddard APRN TRANSLATOR INTERPRETER Primary Care Provider + Dov Alston [facility] Unavailable Unavailable Dov Alston [facility] Unavailable Unavailable Reason for Visit * Reason Onset Date Comments Panel Management 09/09/2019 Encounter Details Date Type Department Care Team (Late st Contact Info) Description 09/09/2019 MyC Medical Advice [address], [address] [place] [address] Tennille Goddard APRN TRANSLATOR INTERPRETER [address] [place] [address] Panel Management Social History Tobacco [...] on file 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 Questions for provider review: None Antonia Dai MA Chart routed to Care Team . documented in this encounter Plan of Treatment Not on file documented as of this encounter Visit Diagnoses Not on filedocumented in this encounter Additional Health Concerns Assessment Noted Time PHQ-9 Depression Total Score: 0 01/07/20 19 6:53 PM MONORAIL HELPER documented as of this encounter Care Teams Fermenter Wine Relationship Specialty Start Date End Date Tennille Goddard APRN TRANSLATOR INTERPRETER [address] [place] [address] PCP - General Nurse Practitioner - Family 08/18/19 Tennille Goddard APRN TRANSLATOR INTERPRETER [address] [place] [address] Assigned PCP 12/15/18 01/07/22 Beatris Ty [facility] [address] [place] [address] Pharmacist Pharmacist 04/08/19 01/12/21 Dov Alston [facility] [address] [place] [address] Pharmacist Pharmacist 06/16/19 Dov Alston [facility] [address] [place] [address] Assigned MTM Pharmacist 04/15/22 08/04/22 Dov Alston [facility] [address] [place] [address] Assigned MTM Pharmacist 08/16/22 10/27/22 documented as of this encounter
--- OUTSIDE RECORDS SUMMARY | 2025-02-02 23:59 | XMS_ITS | Encounter Summary ---
Author Organization [place] Address [address] [place] [address] Care Team Providers Care Communications Senior Associate Name Role Phone Wally Daniel MD Primary Care Provider Unavailable Wally Daniel MD Unavailable Unavai lable No Ref-Primary, Physician Primary Care Provider Tennille Goddard APRN DATA SUPPORT SPECIALIST Unavailable [phone] Tennille Goddard APRN DATA SUPPORT SPECIALIST Unavailable [phone] Beatris Ty [facility] Unavailable [phone] Dov Alston [facility] Unavailable Unavailable Tennille Goddard APRN DATA SUPPORT SPECIALIST Primary Care Provider + Dov Alston [facility] Unavailable Unavailable Dov Alston [facility] Unavailable Unavailable Encounter Details Date Type Department Care Team (Late st Contact Info) Description 03/23/2014 MyC Medical Advice [address] [address] Dov Alston [facility] [id number] [place] [address] Social History Tobacco Use Types Packs/Day Years [...] on file 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 Gender Identity Not on file Sexual Orientation Not on file 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 as of this encounter Plan of Treatment Not on file documented as of this encounter Visit Diagnoses Not on filedocumented in this encounter Care Teams Communications Senior Associate Relationship Specialty Start Date End Date Wally Daniel MD PCP - General 12/17/03 12/08/18 Wally Daniel MD PCP - Assigned PCP 10/16/10 12/14/18 No Ref-Primary, Physician PCP - General 12/09/18 08/17/19 Tennille Goddard APRN DATA SUPPORT SPECIALIST [address] [facility] [address] PCP - Assigned PCP 12/15/18 01/21/19 Tennille Goddard APRN DATA SUPPORT SPECIALIST [address] [facility] [address] [address] [place], [place] [id number] PCP - General Nurse Practitioner - Family 08/18/19 Tennille Goddard APRN DATA SUPPORT SPECIALIST [address] [address] [facility] [place] [id number] Assigned PCP 12/15/18 01/07/22 Beatris Ty [facility] [address] [place] [address] Pharmacist Pharmacist 04/08/19 01/12/21 Dov Alston [facility] [address] [place] [address] Pharmacist Pharmacist 06/16/19 Dov Alston [facility] [address] [place] [address] Assigned MTM Pharmacist 04/15/22 08/04/22 Dov Alston [facility] [address] [place] [address] Assigned MTM Pharmacist 08/16/22 10/27/22 documented as of this encounter
--- OUTSIDE RECORDS SUMMARY | 2025-02-02 23:59 | XMS_ITS | Encounter Summary ---
Author Organization [place] Address [address] [place] [address] Care Team Providers Care System Administrator Name Role Phone Wally Daniel MD Primary Care Provider Unavailable Wally Daniel MD Unavailable Unavai lable No Ref-Primary, Physician Primary Care Provider Tennille Goddard APRN APPEALS REVIEWER VETERAN Unavailable [phone] Tennille Goddard APRN APPEALS REVIEWER VETERAN Unavailable [phone] Beatris Ty RPH Unavailable [phone] Dov Alston RPH Unavailable Unavailable Tennille Goddard APRN APPEALS REVIEWER VETERAN Primary Care Provider + Kenny Alstonl RPH Unavailable Unavailable Kenny Alstonl RPH Unavailable Unavailable Reason for Referral * Consultation - Closed Specialty Diagnoses / Procedures Referred By Juanito ayala Referred To Contact Diagnoses Gross hematuria Wally Daniel MD [facility] [address] [place] [address] [address] [place] [address] Phone: tel: Referral ID Status Reason Start Date Expiration Date Visits Re quested Visits Authorized [id number] Closed 12/08/2014 06/06/2015 1 1 Comments Your [...] where they were done to arrange for pickling machine operator prior to your scheduled appointment. Any new CT, MRI or other procedures ordered by your specialist must be performed at a [facility] or coordinated by your clinic's referral office. 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 (Bhavani in referrals) LE TACK PULLER HAND * Telephone Encounter - Linda Brizuela RN - 12/04/2014 8:14 AM CST Postponed until Sunday when pt has appt Linda Brizuela RN, BSN LE TACK PULLER HAND documented in this encounter Plan of Treatment Scheduled Referrals Name Type Priority Associated Diagnoses Orde r Schedule UROLOGY ADULT REFERRAL Referral Routine Gross Hematuria Ordered: 12/08/2014 documented as of this encounter Visit Diagnoses Diagnosis Gross hematuria- Primary documented in this encounter Care Teams System Administrator Relationship Specialty Start Date End Date Wally Daniel MD PCP - General 12/17/03 12/08/18 Wally Daniel MD PCP - Assigned PCP 10/16/10 12/14/18 No Ref-Primary, Physician PCP - General 12/09/18 08/17/19 Tennille Goddard APRN APPEALS REVIEWER VETERAN [address] [place] [address] PCP - Assigned PCP 12/15/18 01/21/19 Tennille Goddard APRN APPEALS REVIEWER VETERAN [address] [place] [address] PCP - General Nurse Practitioner - Family 08/18/19 Tennille Goddard APRN APPEALS REVIEWER VETERAN [address] [place] [address] Assigned PCP 12/15/18 01/07/22 Beatris Ty [facility] [address] [place] [address] Pharmacist Pharmacist 04/08/19 01/12/21 Dov Alston [facility] [address] [place] [address] Pharmacist Pharmacist 06/16/19 Dov Alston [facility] [address] [place] [address] Assigned MTM Pharmacist 04/15/22 08/04/22 Dov Alston [facility] [address] [place] [address] Assigned MTM Pharmacist 08/16/22 10/27/22 documented as of this encounter
--- OUTSIDE RECORDS SUMMARY | 2025-02-02 23:59 | XMS_ITS | Clinical Summary ---
Author Organization [facility] Address [address] [place] [address] Care Team Providers Care Tire Inspector Name Role Phone Dov Alston [facility] Unavailable Unavailable Tennille Goddard APRN DIE TRY OUT WORKER Primary Care Provider + Allergies Active Allergy Reactions Criticality Noted Date Comments Duloxetine Other (See Comments) 05/29/2017 [place] like he was in a walking coma [...] - Scan on 01/04/2016 2:01 PM : [facility] [employer] [place] CONTROLLED SUBSTANCE AGREEMENT (below) Pain Clinic evaluation in the past: No DIRE Total Score(s): No flowsheet data found. 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 Last Filed Vital Signs Vital Sign Reading Time Taken Comments Blood Pressure 112/70 04/25/2021 12:29 PM CDT Pulse 105 04/25/2021 12:29 PM CDT Temperature 37.1 C (98.8 F) 01/07/2019 6:06 PM YOGHURT MAKER Respiratory Rate 16 01/07/2019 6:06 PM YOGHURT MAKER Oxygen Saturation 95% 04/25/2021 12:29 PM CDT Inhaled Oxygen Concentration - - Weight 61.3 kg (135 lb 3.2 oz) 04/25/2021 12:29 PM CDT Height 167.6 cm (5' 6) 01/07/2019 6:06 PM YOGHURT MAKER Body Mass Index 21.82 01/07/2019 6:06 PM YOGHURT MAKER Plan of Treatment Not on file [place] * Guarantor: Kevin Perry Account Type Relation to Patient Date of Phone Billing Address Medication Therapy Self 1960 [address] [place] [address] [place] Care Teams Tire Inspector Relationship Specialty Start Date End Date Tennille Goddard APRN DIE TRY OUT WORKER [address] [place] [address] PCP - General Nurse Practitioner - Family 08/18/19 Dov Alston RPH [address] [place] [address] Pharmacist Pharmacist 06/16/19
--- OUTSIDE RECORDS SUMMARY | 2025-02-02 23:59 | XMS_ITS | Encounter Summary ---
Author Organization [facility] Address [address] [place] [address] Care Team Providers Care Car Electronics Installer Name Role Phone Kelly Mendez APRN C.N.Jose, D.N.P. Primary Car e Provider Encounter Details Date Type Department Care Team (Late st Contact Info) Description 11/25/2024 Clinical Communication Department of Radiation Oncology in [place], [place] [address] [place] [address] Edson Grimm M.D. [address] [place] [address] Social History Tobacco Use Types Packs/Day Years Used Date Smoking Tobacco: Former Cigarettes Q uit: 2008 Passive Smoke Exposure: Never Smokeless Tobacco: Never Alcohol Use Standard Drinks/Week Comments Not Currently 0 (1 standard drink = 0.6 oz pur e alcohol) last 06/23/22 [facility] Utilities Answer Date Recorded In the past 12 months has [employer] electric, gas, oil, or water [employer] threatened to shut off services in [...] week 02/04/2023 How often do you attend faith or buddhism serv ices? Patient declined 02/04/2023 Do you belong to any clubs o r organizations such as faith groups, unions, fraternal or athletic groups, or [...] Answer Date Recorded PHQ-2 Score 6 11/23/2024 [facility] [place] of Occupat ional Health - Occupational Stress [...] AM CDT Legal Sex Male 9:11 PM STAFF WRITER Gender Identity na 09/07/2021 10:32 AM CDT Sexual Orientation Choose not to disclose 2020 10:32 AM CDT documented as of this encounter Plan of Treatment Upcoming Encounters Date Type Department Care Team (Latest Contact Info) Description 02/03/2025 1:00 PM CDT Appointment Department of Radiation Oncology in [place], [place] [address] [place] [phone] [place] [address] 02/04/2025 1:00 PM CDT Appointment Department of Radiation Oncology in [place] [address] [place] [address] Kiana Oliver M.D. [address] [place] [phone] 02/05/2025 12:45 PM CDT Appointment Department of Radiation Oncology in [place], [place] [address] [place] [address] Kiana Oliver M.D. [address] [place] [address] 02/05/2025 1:00 PM CDT Appointment Department of Radiation Oncology in [place], [place] [address] [place] [phone] Kiana Oliver M.D. [address] [place] [phone] 02/06/2025 1:00 PM CDT Appointment Department of Radiation Oncology in [place], [place] [address] [place] [phone] Kiana Oliver M.D. [address] [place] [phone] 02/09/2025 1:00 PM CDT Appointment Department of Radiation Oncology in [place], [place] [address] [place] [address] Kiana Oliver M.D. 200 [place] [address] 02/10/2025 1:00 PM CDT Appointment Department of Radiation Oncology in [place], [place] [address] [place] [phone] Kiana Oliver M.D. [address] [place] [phone] 02/11/2025 1:00 PM CDT Appointment Department of Radiation Oncology in [place], [place] [address] [place] [phone] Kiana Oliver M.D. [address] [place] [phone] 02/12/2025 1:00 PM CDT Appointment Department of Radiation Oncology in [place], [place] [address] [place] [address] Kiana Oliver M.D. [address] [place] [phone] 02/12/2025 1:15 PM CDT Appointment Department of Radiation Oncology in [address] [phone] Kiana Oliver M.D. [address] [place] [phone] 02/13/2025 1:00 PM CDT Appointment Department of Radiation Oncology in [place], [place] [address] [place] [address] Kiana Oliver M.D. [address] [place] [phone] 02/16/2025 7:15 AM CDT Ancillary Procedure Department of Ophthalmology in [place], [place] [address] [place] [phone] Maida Tim O.D. [address] [place] [phone] 02/16/2025 8:00 AM CDT Comprehensive Visit Department of Ophthalmology in [place], [place] [address] [place] [phone] Desi Rasmussen O.D. [address] [place] [phone] 02/23/2025 8:15 AM CDT Clinical Communication Virtual Review in [place], [place] 200 [place] [address] 02/24/2025 9:40 AM CDT Office Visit Department of Dermatology in [place], [place] [address] [place] [phone] Felipe Stewart M.D. [address] [place] [phone] 02/24/2025 10:00 AM CDT Office Visit Jeyson milan [facility] for Transplantation and Clinical Regeneration in [place], [place] [address] [place] [phone] Aide Welch P.A.-C., M.S. [address] [place] [phone] 03/03/2025 9:00 AM CDT Telemedicine Department of Nutrition and Diabetes Education in [address] [address] Katelin Alcaraz APRN, C.N.P., D.N.P. [address] [place] [phone] Mansi Ross M.S., RDN, LD [address] [place] [phone] documented as of this encounter Visit Diagnoses Not on filedocumented in this encounter Additional Health Concerns Infection Onset Date Last Indicated Resolved Time Protective Environment 11/10/2023 11/10/2023 Assessment Noted Time PHQ-9 Depression Total Score: 19 025 12:23 PM STAFF WRITER documented as of this encounter Care Teams Car Electronics Installer Relationship Specialty Start Date End Date Kelly Mendez APRN, C.N.P., D.N.P. [address] [place] [address] PCP - General Internal Medicine 12/05/23 Rhea [facility] [place] or [place]abel [facility] lab Laboratory Medicine 02/26/23 documented as of this encounter
--- OUTSIDE RECORDS SUMMARY | 2025-02-02 23:59 | XMS_ITS | Encounter Summary ---
Author Organization [facility] Address [address] [place] [address] Care Team Providers Care Rn Prior Authorization Name Role Phone Wally Daniel MD Primary Care Provider Unavailable Wally Daniel MD Unavailable Unavai lable No Ref-Primary, Physician Primary Care Provider Tennille Goddard APRN WAXING MACHINE OPERATOR Unavailable [phone] Tennille Goddard APRN WAXING MACHINE OPERATOR Unavailable [phone] Beatris Ty [facility] Unavailable [phone] Dov Alston [facility] Unavailable Unavailable Tennille Goddard APRN WAXING MACHINE OPERATOR Primary Care Provider + Dov Alston [facility] Unavailable Unavailable Dov Alston [facility] Unavailable Unavailable Encounter Details Date Type Department Care Team (Late st Contact Info) Description 06/18/2014 MyC Medical Advice [address] [address] Dov Alston [facility] [id number] [place] [address] Social History Tobacco Use Types Packs/Day Years [...] on file Legal Sex Male 3:09 AM SOD STRIPPER Gender Identity Not on file Sexual Orientation Not on file 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 as of this encounter Plan of Treatment Not on file documented as of this encounter Visit Diagnoses Not on filedocumented in this encounter Care Teams Rn Prior Authorization Relationship Specialty Start Date End Date Wally Daniel MD PCP - General 12/17/03 12/08/18 Wally Daniel MD PCP - Assigned PCP 10/16/10 12/14/18 No Ref-Primary, Physician PCP - General 12/09/18 08/17/19 Tennille Goddard APRN WAXING MACHINE OPERATOR [address] [facility] [place] [address] PCP - Assigned PCP 12/15/18 01/21/19 Tennille Goddard APRN WAXING MACHINE OPERATOR [address] [facility] [address] [address] [place], [place] [id number] PCP - General Nurse Practitioner - Family 08/18/19 Tennille Goddard APRN WAXING MACHINE OPERATOR [address] [facility] [place] [id number] Assigned PCP 12/15/18 01/07/22 Beatris Ty [facility] [address] [place] [address] Pharmacist Pharmacist 04/08/19 01/12/21 Dov Alston [facility] [address] [place] [address] Pharmacist Pharmacist 06/16/19 Dov Alston [facility] [address] [place] [address] Assigned MTM Pharmacist 04/15/22 08/04/22 Dov Alston [facility] [address] [place] [address] Assigned MTM Pharmacist 08/16/22 10/27/22 documented as of this encounter
--- OUTSIDE RECORDS SUMMARY | 2025-02-02 23:59 | XMS_ITS | Encounter Summary ---
Author Organization [facility] Address [address] [place] [address] Care Team Providers Care Golf Ball Marker Name Role Phone No Ref-Primary, Physician Primary Care Provider Tennille Goddard APRN HYPOID GEAR GENERATOR Unavailable Beatris Ty [facility] Unavailable [phone] Dov Alston [facility] Unavailable Unavailable Tennille Goddard APRN HYPOID GEAR GENERATOR Primary Care Provider + Dov Alston [facility] Unavailable Unavailable Dov Alston [facility] Unavailable Unavailable Encounter Details Date Type Department Care Team (Late st Contact Info) Description 04/22/2019 [facility] [address] [place] [phone] Antonia Rahman, RN Social History Tobacco [...] on file Legal Sex Male 3:09 AM SPRING LAYER Gender Identity Not on file Sexual Orientation [...] Depression Total Score: 0 01/07/20 6:53 PM SPRING LAYER documented as of this encounter Care Teams Golf Ball Marker Relationship Specialty Start Date End Date No Ref-Primary, Physician PCP - General 12/09/18 08/17/19 Tennille Goddard APRN HYPOID GEAR GENERATOR [address] [place] [address] PCP - General Nurse Practitioner - Family 08/18/19 Tennille Goddard APRN HYPOID GEAR GENERATOR [address] [place] [address] Assigned PCP 12/15/18 01/07/22 Beatris Ty [facility] [address] [place] [address] Pharmacist Pharmacist 04/08/19 01/12/21 Dov Alston [facility] [address] [facility] [place] [address] Pharmacist Pharmacist 06/16/19 Dov Alston [facility] [address] [place] [address] Assigned MTM Pharmacist 04/15/22 08/04/22 Dov Alston [facility] [address] [place] [address] Assigned MTM Pharmacist 08/16/22 10/27/22 documented as of this encounter
--- OUTSIDE RECORDS SUMMARY | 2025-02-02 23:59 | XMS_ITS ---
Author Organization [facility] Address [address] [place] [address] Care Team Providers Care Turbine Mechanic Name Role Phone Kelly Mendez APRN C.N.PKathrin, D.N.PKathrin Primary Car e Provider Transplant Episode Liver Recipient [facility] ([place], [place]) - [facility] Organ Received: Liver Transplanted on 11/10/2023 Marked as Active Follow-up on 11/10/2023 Liver CoordinatorChristy Abad R.N., C.C.T.C. Fax: N/A Email: [email or web address] [place] Organ Diagnosis Organ Primary Contributory Liver Acute [...] Email Christy Abad R.N., C.C.T.C. Liver Coordinator [phone] N/A [email or web address] Ashley Sanford APRN, C.N.P., D.N.P. Referring Provider [phone] [email or web address] HeBKathrinS. Transplant Java Architect N/A N/A N/A Marquise Myers M.D. Transplant Java Architect [phone] [email or web address] Carmelo Hernandez M.D., Ph.D. Transplant Surgeon [phone] [email or web address] Post-Transplant Pre-Transplant Admitted: 11/09/2023 Referred: 02/09/2023 Transplanted: 11/10/2023 Evaluation began: 3 Discharged: 11/15/2023 Committee: 09/26/2023 Center waitlisted: 3 Appointments (01/05/2025 - 03/05/2025) When With Visit Type Description 01/08/2025 TXP Office Visit Canceled (Clini c: Scheduling Error) 01/19/2025 TXNarda - Flori Shetty Office Visit Transplant Li luis (HCC); Medication Therapy Ammunition Officer Not Anticoagulant 01/19/2025 TXNarda - Flori Shetty Office Visit Canceled (Cli adrianne: Request) 02/24/2025 TXP Office Visit 02/24/2025 TXP Office Visit Canceled (Clini c: Request)
--- OUTSIDE RECORDS SUMMARY | 2025-02-02 23:59 | XMS_ITS | Encounter Summary ---
Author Organization [facility] Address [address] [place] [address] Care Team Providers Care Automatic Coin Machine Mechanic Name Role Phone No Ref-Primary, Physician Primary Care Provider Tennille Goddard APRN VEHICLE CARE SPECIALIST Unavailable [phone] Beatris Ty [facility] Unavailable [phone] Dov Alston [facility] Unavailable Unavailable Tennille Goddard APRN VEHICLE CARE SPECIALIST Primary Care Provider + Dov Alston [facility] Unavailable Unavailable Dov Alston [facility] Unavailable Unavailable Encounter Details Date Type Department Care Team (Late st Contact Info) Description 02/26/2019 MyC Medical Advice [address], [address] [place] [address] Antonia Dai, [facility] Social History Tobacco Use Types Packs/Day Years [...] on file Legal Sex Male 3:09 AM MULTIFOCAL BUTTON GRINDER Gender Identity Not on file Sexual [...] Total Score: 0 01/07/20 19 6:53 PM MULTIFOCAL BUTTON GRINDER documented as of this encounter Care Teams Automatic Coin Machine Mechanic Relationship Specialty Start Date End Date No Ref-Primary, Physician PCP - General 12/09/18 08/17/19 Tennille Goddard APRN VEHICLE CARE SPECIALIST [address] [address] [place] [address] PCP - General Nurse Practitioner - Family 08/18/19 Tennille Goddard APRN VEHICLE CARE SPECIALIST [address] [address] [place] [address] Assigned PCP 12/15/18 01/07/22 Beatris Ty [facility] [address] [place] [address] Pharmacist Pharmacist 04/08/19 01/12/21 Dov Alston [facility] [address] [place] [address] Pharmacist Pharmacist 06/16/19 Dov Alston [facility] [address] [place] [address] Assigned MTM Pharmacist 04/15/22 08/04/22 Dov Alston [facility] [address] [place] [address] Assigned MTM Pharmacist 08/16/22 10/27/22 documented as of this encounter
--- OUTSIDE RECORDS SUMMARY | 2025-02-02 23:59 | XMS_ITS | Encounter Summary ---
Author Organization [facility] Address [address] [place] [address] Care Team Providers Care Java Architect Name Role Phone Wally Daniel MD Primary Care Provider Unavailable Wally Daniel MD Unavailable Unavai lable No Ref-Primary, Physician Primary Care Provider Tennille Goddard APRN TRIM MECHANIC Unavailable [phone] Tennille Goddard APRN TRIM MECHANIC Unavailable [phone] Beatris Ty [facility] Unavailable [phone] Dov Alston [facility] Unavailable Unavailable Tennille Goddard APRN TRIM MECHANIC Primary Care Provider + Dov Alston [facility] Unavailable Unavailable Dov Alston [facility] Unavailable Unavailable Encounter Details Date Type Department Care Team (Late st Contact Info) Description 02/20/2013 [facility] [address] [address] Aftab He Social History Tobacco [...] on file Legal Sex Male 3:09 AM COTTON GIN YARD SUPERVISOR Gender Identity Not on file Sexual Orientation Not on file 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 as of this encounter Plan of Treatment Not on file documented as of this encounter Visit Diagnoses Not on filedocumented in this encounter Care Teams Java Architect Relationship Specialty Start Date End Date Wally Daniel MD PCP - General 12/17/03 12/08/18 Wally Daniel MD PCP - Assigned PCP 10/16/10 12/14/18 No Ref-Primary, Physician PCP - General 12/09/18 08/17/19 Tennille Goddard APRN TRIM MECHANIC [address] [facility] [address] PCP - Assigned PCP 12/15/18 01/21/19 Tennille Goddard APRN TRIM MECHANIC [address] [place] [address] PCP - General Nurse Practitioner - Family 08/18/19 Tennille Goddard APRN TRIM MECHANIC [address] [facility] [place] [address] Assigned PCP 12/15/18 01/07/22 Beatris Ty [facility] [address] [place] [address] Pharmacist Pharmacist 04/08/19 01/12/21 Dov Alston [facility] [address] [place] [address] Pharmacist Pharmacist 06/16/19 Dov Alston [facility] [address] [place] [address] Assigned MTM Pharmacist 04/15/22 08/04/22 Dov Alston [facility] [address] [place] [address] Assigned MTM Pharmacist 08/16/22 10/27/22 documented as of this encounter
--- OUTSIDE RECORDS SUMMARY | 2025-02-03 | XMS_ITS | Encounter Summary ---
Author Organization [facility] Address [address] [place] [address] Care Team Providers Care Gridcap Machine Operator Name Role Phone Wally Daniel MD Primary Care Provider Unavailable Wally Daniel MD Unavailable Unavai lable No Ref-Primary, Physician Primary Care Provider Tennille Goddard APRN CAMPAIGN MANAGER Unavailable [phone] Tennille Goddard APRN CAMPAIGN MANAGER Unavailable [phone] Beatris Ty RPH Unavailable [phone] Dov Alston RPH Unavailable Unavailable Tennille Goddard APRN CAMPAIGN MANAGER Primary Care Provider + Dov Alston RPH Unavailable Unavailable Dov Alston RPH Unavailable Unavailable Reason for Visit * Reason Onset Date Comments Nurse Advice Line 10/01/2018 change provide r Encounter Details Date Type Department Care Team (Late st Contact Info) Description 10/01/[address], [address] [place] [address] Herminio Heart PA-C [address] [place] [address] Nurse Advice Line (change provider) [...] on file Legal Sex Male 3:09 AM CAFETERIA TEAM LEADER Gender Identity Not on file Sexual Orientation [...] Wrightrecommended her to him. Sri Campuzano MA TERIA TEAM LEADER * Telephone Encounter - Krista Poole RN - 10/01/2018 6:15 PM CST Original message should have gone to RN rather than provider Message below was in comment box for reason for call - This Pt wants to switch clinics and pcp to Herminio at [facility] and would like a clbk regarding the most diabetic medication that can be rx'd without a visit. He did not have his medication info at time of call Pt has been seeing Dr María KIDD for pt to CB and discuss needs. Krista Poole RN, BS Clinical Nurse Triage. TERIA TEAM LEADER * Telephone Encounter - Herminio Heart PA-C - 10/01/2018 12:47 PM CAFETERIA TEAM LEADER I would note prescribe any medications without seeing him first. He is over due for visit and many health maintenance items. Herminio Silva TERIA TEAM LEADER * Telephone Encounter - Bc Ko - 10/01/2018 8:43 AM CST Reason for call: Other Patient called regarding (reason for call): Pt would like a call back to discuss changing clinics, pcp, and diabetic prescription questions Additional comments: Phone number to reach patient: Home number on file [phone] (home) Best Time: any Can we leave a detailed message on this number? Not Applicable TERIA TEAM LEADER documented in this encounter Plan of Treatment Not on file documented as of this encounter Visit Diagnoses Not on filedocumented in this encounter Additional Health Concerns Assessment Noted Time PHQ-9 Depression Total Score: 15 016 7:16 AM CDT documented as of this encounter Care Teams Gridcap Machine Operator Relationship Specialty Start Date End Date Wally Daniel MD PCP - General 12/17/03 12/08/18 Wally Daniel MD PCP - Assigned PCP 10/16/10 12/14/18 No Ref-Primary, Physician PCP - General 12/09/18 08/17/19 Tennille Goddard APRN CAMPAIGN MANAGER [address] [place] [address] PCP - Assigned PCP 12/15/18 01/21/19 Tennille Goddard APRN CAMPAIGN MANAGER [address] [address] PCP - General Nurse Practitioner - Family 08/18/19 Tennille Goddard APRN CAMPAIGN MANAGER [address] [place] [address] Assigned PCP 12/15/18 01/07/22 Beatris Ty [facility] [address] [place] [address] Pharmacist Pharmacist 04/08/19 01/12/21 Dov Alston [facility] [address] [place] [address] Pharmacist Pharmacist 06/16/19 Dov Alston [facility] [address] [place] [address] Assigned MTM Pharmacist 04/15/22 08/04/22 [facility] [address] [place] [address] Assigned MTM Pharmacist 08/16/22 10/27/22 documented as of this encounter
--- OUTSIDE RECORDS SUMMARY | 2025-02-03 | XMS_ITS ---
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
--- OUTSIDE RECORDS SUMMARY | 2025-02-03 | XMS_ITS | Encounter Summary ---
Author Organization [facility] Address [address] [place] [id number] Care Team Providers Care Mud Grinder Name Role Phone Wally Daniel MD Primary Care Provider Unavailable Wally Daniel MD Unavailable Unavai lable No Ref-Primary, Physician Primary Care Provider Tennille Goddard APRN LEARNING AND DEVELOPMENT ASSOCIATE Unavailable [phone] Tennille Goddard APRN LEARNING AND DEVELOPMENT ASSOCIATE Unavailable [phone] Beatris Ty [facility] Unavailable [phone] Dov Alston RP Unavailable Unavailable Tennille Goddard APRN LEARNING AND DEVELOPMENT ASSOCIATE Primary Care Provider + Dov Alston RPH Unavailable Unavailable Dov Alston RPH Unavailable Unavailable Reason for Visit * Reason Onset Date Comments Care Team 05/15/2017 Encounter Details Date Type Department Care Team (Late st Contact Info) Description 05/15/2017 My[facility] Medical Advice [address] [address] Dov Alston [facility] [id number] [place] [id number] Care Team Social History Tobacco Use Types [...] on file Legal Sex Male 3:09 AM PARTS ROOM ASSOCIATE Gender Identity Not on file Sexual Orientation [...] 30mg bid thereafter . rx sent to [facility]. Dov Alston Rph. Medication Therapy Management Provider [phone] documented in this encounter Plan of Treatment Not on file documented as of this encounter Visit Diagnoses Diagnosis Other chronic pain- Primary documented in this encounter Additional Health Concerns Assessment Noted Time PHQ-9 Depression Total Score: 15 016 7:16 AM CDT documented as of this encounter Care Teams Mud Grinder Relationship Specialty Start Date End Date Wally Daniel MD PCP - General 12/17/03 12/08/18 Wally Daniel MD PCP - Assigned PCP 10/16/10 12/14/18 No Ref-Primary, Physician PCP - General 12/09/18 08/17/19 Tennille Goddard APRN LEARNING AND DEVELOPMENT ASSOCIATE [id number] [address] [id number] PCP - Assigned PCP 12/15/18 01/21/19 Tennille Goddard APRN LEARNING AND DEVELOPMENT ASSOCIATE [address] [place] [address] PCP - General Nurse Practitioner - Family 08/18/19 Tennille Goddard APRN LEARNING AND DEVELOPMENT ASSOCIATE [address] [address] [id number] Assigned PCP 12/15/18 01/07/22 Beatris Ty [facility] [address] [place] [address] Pharmacist Pharmacist 04/08/19 01/12/21 [facility] [address] [place] [address] Pharmacist Pharmacist 06/16/19 [facility] [address] [place] [address] Assigned MTM Pharmacist 04/15/22 08/04/22 [facility] [address] [place] [address] Assigned MTM Pharmacist 08/16/22 10/27/22 documented as of this encounter
--- OUTSIDE RECORDS SUMMARY | 2025-02-03 | XMS_ITS | Clinical Summary ---
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 Primary Car e Provider Source Comments Patient records contain information from all sites at [facility]. For routine questions regarding patient records, call [phone] during business hours, M-F 8:00 AM - 5:00 PM Central Time. Record requests for emergency care only can be directed to [phone] at any time.[facility] Allergies Active Allergy Reactions Criticality Noted Date [...] 200 test 3 12/12/19 24 11:05 AM LAY OUT FORMER 024 Active blood-glucose meter misc Test as directed for diabetes control. 1 each 12/12/19 24 11:05 AM LAY OUT FORMER 024 Active sennosides-docusa te sodium (Stool Softener-Stimulan t Laxat) 8.6-50 mg per tabletIndications :Transplant Liver (HCC),Medication Therapy Mcc Not Anticoagulant,Enrique g Induced Constipation Take 1 [...] 90 tablet 3 12/29/19 25 1:25 PM [facility] 024 Active folic acid 1 mg tablet Take 1 tablet (1 mg total) by mouth daily. 90 tablet 3 10/29/20 24 11:46 AM [facility] 024 Active ondansetron ODT (Zofran-ODT) 4 mg disintegrating tablet Dissolve 1 tablet (4 mg total) in the mouth every 8 (eight) hours as needed for nausea or vomiting. 30 tablet 3 11/26/19 25 3:29 PM [facility] [address] aspirin [address] tablet [...] (RLS). 30 tablet 11/26/19 25 3:29 PM LAY OUT FORMER Active famotidine (Pepcid) 20 mg tablet Take 1 tablet (20 mg total) by mouth 2 (two) times a day as needed for heartburn. 60 tablet 1 11/14/20 24 12:18 PM LAY OUT FORMER Active insulin lispro (HumaLOG KwikPen Insulin) 100 [...] 15 mL 2 11/14/20 24 12:18 PM LAY OUT FORMER Active Additional Information Patient not taking.Reported on 01/14/2025 pen needle, diabetic (BD Ultra-Fine Short Pen Needle) 31 gauge x 5/16 needle Use 3 times a day 300 each 1 11/14/20 24 12:18 PM LAY OUT FORMER Active HYDROcodone-aceta minophen ([place]) 7.5-325 mg per tabletIndications :Chronic Pain/Nonacute Pain [...] 1 mg capsuleIndication s:Transplant Liver (HCC),Medication Therapy Mcc Not Anticoagulant Take [...] 02/03/20 25 9:47 AM CDT 025 Active ssjncme32-fynvial llose (Artificial Tears) ophthalmic solution 1 drop [...] 6 each 3 11/26/19 25 3:29 PM LAY OUT FORMER 024 2024 Discontinued insulin glargine 100 unit/mL [...] Failure 12/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 01/30/2025 3:20 PM CDT Comprehensive Visit Department of Ophthalmology in [place] [address] [place] [address] Kiana Oliver M.D. Schornack, Muriel M, O.D. Dry Eye Syndrome Bilateral (Primary Dx); Dysfunction Meibomian Gland Right; Dysfunction Meibomian Gland Left; Diabetes Mellitus Type 2 Hyperglycemia (HCC); Refraction Disorder 01/30/2025 10:24 AM CDT - 01/30/2025 11:59 PM CDT Hospital Encounter Department of Laboratory Medicine in [place], [place] [address] [place] [address] Deann Zhu, MARCUS, C.N.P., M.S. 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 01/29/2025 12:42 PM CDT - 01/29/2025 2:31 PM CDT Hospital Encounter Department of Radiation Oncology in [address] [address] Kiana Oliver M.D. 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 01/29/2025 12:42 PM CDT Hospital Encounter Department of Radiation Oncology in [address] [address] Kiana Oliver M.D. 01/28/2025 12:49 PM CDT Hospital Encounter Department of Radiation Oncology in [address] [address] Kiana Oliver M.D. 01/28/2025 Refill Division of Endocrinology in [place], [place] [address] [place] [address] Bryson Lr M.D. [facility] Refill 01/27/2025 12:36 PM CDT Hospital Encounter Department of Radiation Oncology in [address] [address] Kiana Oliver M.D. 01/26/2025 12:46 PM CDT Hospital Encounter Department of Radiation Oncology in [address] [address] Kiana Oliver M.D. 01/23/2025 12:40 PM LAY OUT FORMER Hospital Encounter Department of Radiation Oncology in [address] [address] Kiana Oliver M.D. 01/22/2025 12:25 PM LAY OUT FORMER - 01/22/2025 4:49 PM LAY OUT FORMER Hospital Encounter Department of Radiation Oncology in [address] [address] Kiana Oliver M.D. 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 01/22/2025 12:20 PM LAY OUT FORMER Hospital Encounter Department of Radiation Oncology in [address] [address] Kiana Oliver M.D. 01/21/2025 12:17 PM LAY OUT FORMER Hospital Encounter Department of Radiation Oncology in [address] [address] Kiana Agudelo M.D. 01/20/2025 12:18 PM LAY OUT FORMER Hospital Encounter Department of Radiation Oncology in [address] [address] Kiana Oliver M.D. 01/19/2025 2:45 PM LAY OUT FORMER Telemedicine [facility] Transplantation and Clinical Regeneration in [place], [place] [address] [place] [address] Aide Welch P.A.-C., MaliniSJayda Will M.D. 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 01/15/2025 1:35 PM LAY OUT FORMER Ancillary Procedure Department of Oncology 01/15/2025 12:25 PM LAY OUT FORMER - 01/15/2025 3:43 PM LAY OUT FORMER Hospital Encounter Department of Radiation Oncology in [address] [address] Kiana Oliver M.D. Dry Eye Syndrome Left (Primary Dx); 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 01/15/2025 12:25 PM LAY OUT FORMER Hospital Encounter Department of Radiation Oncology in [address] [address] Kiana Oliver M.D. 01/15/2025 11:00 AM LAY OUT FORMER Telemedicine Department of Nutrition and Diabetes Education in [place], [place] [address] [place] [address] Katelin Alcaraz APRN, C.N.P., D.N.P. Mansi Ross M.S., RDN, LD Malnutrition Severe Protein-Calorie (HCC) (Primary Dx); Abdominal Pain 01/14/2025 12:31 PM LAY OUT FORMER - 01/14/2025 1:35 PM LAY OUT FORMER Hospital Encounter Department of Radiation Oncology in [address] [address] Kiana Oliver M.D. Moorhouse, Alexis E RGeetha 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 01/14/2025 12:26 PM LAY OUT FORMER Hospital Encounter Department of Radiation Oncology in [address] [address] Kiana Oliver M.D. 01/13/2025 12:13 PM LAY OUT FORMER Hospital Encounter Department of Radiation Oncology in [address] [address] Kiana Oliver M.D. 01/12/2025 12:12 PM LAY OUT FORMER Hospital Encounter Department of Radiation Oncology in [address] [address] Kiana Oliver M.D. 01/09/2025 12:37 PM LAY OUT FORMER Hospital Encounter Department of Radiation Oncology in [address] [address] Kiana Oliver M.D. 01/09/2025 Clinical [facility] in [place], [place] [address] [place] [address] Christy Abad R.N., C.C.T.C. Labs Only 01/08/2025 12:32 PM LAY OUT FORMER Hospital Encounter Department of Radiation Oncology in [address] [address] Kiana Oliver M.D. 01/08/2025 9:50 AM LAY OUT FORMER - 01/08/2025 12:31 PM LAY OUT FORMER Hospital Encounter Department of Laboratory Medicine in [address] [address] Deann Zhu APRN, C.N.P., M.S. 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 01/07/2025 12:56 PM LAY OUT FORMER Hospital Encounter Department of Radiation Oncology in [address] [address] Kiana Oliver M.D. 01/06/2025 12:37 PM LAY OUT FORMER Hospital Encounter Department of Radiation Oncology in [address] [address] Kiana Oliver M.D. 01/05/2025 1:12 PM LAY OUT FORMER Hospital Encounter Department of Radiation Oncology in [address] [address] Kiana Oliver M.D. 01/01/2025 11:00 AM [facility] Telemedicine Division of Endocrinology in [place], [place] [address] [place] [address] Katelin Alcaraz APRN, C.N.P., D.N.P. Dietary Counseling And Surveillance For Enteral Nutrition 12/31/2024 Clinical Communication Department of Internal Medicine in [place], [place] [address] [place] [address] Kelly Mendez APRN C.N.P., D.N.P. [facility] Form ([facility] Kummer - [id number]) 12/30/2024 Clinical Communication [facility] for Transplantation and Clinical Regeneration in [place], [place] [address] [place] [address] Christy Abad R.N., C.C.T.C. Labs Only 12/30/2024 Clinical Communication [facility] Transplantation and Clinical Regeneration in [place], [place] [address] [place] [phone] Aide Welch P.A.-C., M.S. Appt Request (Pacemaker scheduling) 12/26/2024 9:50 AM LAY OUT FORMER - 12/26/2024 11:59 PM LAY OUT FORMER Hospital Encounter Department of Laboratory Medicine in [place], [place] [address] [place] [address] Deann Zhu APRN C.N.P., M.S. Transplant Liver (HCC); Medication Therapy Mcc Not Anticoagulant; Immunodeficiency Due To Drugs (HCC); Moderate Or Severe Use Disorder (Dependence) Alcohol Remission (HCC) Discharge Disposition: Home or Self Care 12/25/2024 Orders Only Department of Cardiovascular Medicine in [place], [place] [address] [place] [address] Pmo Lead, Aneudy Rubio 12/25/2024 Orders Only Department of Radiation Oncology in [address] [address] Kiana Oliver M.D. Malignant Neoplasm Of Face Squamous Cell (Primary Dx) 12/23/2024 12:48 PM LAY OUT FORMER - 12/23/2024 4:19 PM LAY OUT FORMER Hospital Encounter Department of Radiation Oncology in [address] [address] Kiana Oliver M.D. 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 12/23/2024 12:09 PM LAY OUT FORMER - 12/23/2024 12:47 PM LAY OUT FORMER Hospital Encounter Department of Radiation Oncology in [place], [place] [address] [place] [address] Kiana Oliver M.D. 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 (Primary Dx) 12/19/2024 9:30 AM LAY OUT FORMER Office Visit Department of Dermatology in [place], [place] [address] [place] [phone] Elsi Goldsmith M.D. Malignant Neoplasm Of Face Squamous Cell 12/19/2024 Ancillary Procedure Department of Dermatology 12/18/2024 2:15 PM LAY OUT FORMER Comprehensive Visit Department of Dental Specialties in [place], [place] [address] [place] [phone] Ni Waite D.D.SKathrin 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 12/17/2024 2:00 PM LAY OUT FORMER Comprehensive Visit Division of Endocrinology in [place], [place] [address] [place] [address] Jake Ellington M.D. Katelin lAcaraz, MARCUS, C.N.P., D.N.P. Dietary Counseling And Surveillance For Enteral Nutrition (Primary Dx); Malnutrition Severe Protein-Calorie (HCC); Transplant Liver (HCC); Percutaneous Endoscopic Gastrostomy (HCC) 12/17/2024 1:00 PM LAY OUT FORMER Clinical Support Division of Endocrinology in [address] [address] Jake Ellington M.D. Halie Lewis, R.Allison. Maddison Burgos, R.Allison. Malnutrition Severe Protein-Calorie (HCC); Transplant Liver (HCC); Percutaneous Endoscopic Gastrostomy (HCC) 12/15/2024 1:00 PM LAY OUT FORMER Virtual Visit Jeyson milan [facility] Transplantation and Clinical Regeneration in [place], [place] [address] [place] [phone] Bryson Lr M.D. Mavis Aguilar R.N., CDE Diabetes Mellitus Type 2 (HCC) 12/15/2024 Clinical Communication Department of Dental Specialties in [place], [place] [address] [place] [address] [place] [address] Ni Waite D.D.S. 12/12/2024 11:00 AM LAY OUT FORMER Telemedicine Department of Nutrition and Diabetes Education in [place], [place] [address] [place] [address] Bryson Lr M.D. Shania Pickens M.S., RDN, LD Transplant Liver (HCC) (Primary Dx); Malnutrition Severe Protein-Calorie (HCC) 12/11/2024 2:25 PM LAY OUT FORMER Ancillary Procedure Department of Oncology 12/11/2024 12:21 PM LAY OUT FORMER - 12/11/2024 9:29 PM LAY OUT FORMER Hospital Encounter Department of Radiation Oncology in [place], [place] [address] [place] [phone] Kiana Oliver M.D. 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 (Primary Dx); Malignant Neoplasm Of Face Squamous Cell 12/11/2024 Orders Only Department of Dermatology in [place], [place] [address] [place] [address] Elsi Goldsmith M.D. 12/11/2024 Clinical Communication Department of Internal Medicine in [place], [place] [address] [place] [phone] Kelly Mendez APRN, C.N.P., D.N.P. [facility] Form ([facility] I [id number]) 12/08/2024 9:25 AM LAY OUT FORMER - 12/08/2024 11:59 PM LAY OUT FORMER Hospital Encounter Department of Laboratory Medicine in [place], [place] [address] [place] [phone] Deann Zhu APRN, C.N.P., M.S. 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 (Primary Dx) 12/05/2024 12:54 PM LAY OUT FORMER - 12/05/2024 11:59 PM LAY OUT FORMER Hospital Encounter Department of Cardiovascular Diseases in [place], [place] [address] [place] [phone] Kareem Ayala M.D., M.S. Discharge Disposition: Home or Self Care 12/04/2024 Clinical Communication Jeyson milan [facility] Transplantation and Clinical Regeneration in [place], [place] [address] [place] [phone] Aide Welch P.A.-C., M.S. Appt Request (MRI spine) 12/03/2024 2:49 PM LAY OUT FORMER - 12/03/2024 4:10 PM LAY OUT FORMER Hospital Encounter Department of Radiation Oncology in [place], [place] [address] [place] [phone] Edson Grimm M.D. Prosthesis Aortic Valve (Primary Dx); Malignant Neoplasm Of Face Squamous Cell 12/01/2024 12:45 PM LAY OUT FORMER - 12/01/2024 11:59 PM LAY OUT FORMER Hospital Encounter Department of Radiology in [address] [phone] Elsi Goldsmith M.D. Malignant Neoplasm Of Face Squamous Cell Discharge Disposition: Home or Self Care 12/01/2024 12:45 PM LAY OUT FORMER - 12/01/2024 11:59 PM LAY OUT FORMER Hospital Encounter Department of Radiology in [place] [address] [place] [phone] Elsi Goldsmith M.D. Malignant Neoplasm Of Face Squamous Cell Discharge Disposition: Home or Self Care 12/01/2024 Orders Only Department of Dermatology in [place], [place] [address] [place] [phone] Elsi Goldsmith M.D. Malignant Neoplasm Of Face Squamous Cell 12/01/2024 Clinical Communication [facility] in [place], [place] [address] [place] [phone] Ashly Mata M.S.N., R.N. Tacrolimus Adjustment Protocol Liver 11/28/2024 Clinical Communication Jeyson milan [facility] Transplantation and Clinical Regeneration in [place], [place] [address] [place] [phone] Mavis Aguilar R.N., CDE Diabetes 11/27/2024 9:30 AM LAY OUT FORMER - 11/27/2024 11:59 PM LAY OUT FORMER Hospital Encounter Department of Laboratory Medicine in [place] [address] [place] [address] Deann Zhu APRN, C.N.P., M.S. 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 Follow Up Exam (Primary Dx); Depression Major Recurrent Mild (HCC); Immunodeficiency Due To Drugs (HCC); Malnutrition Severe Protein-Calorie (HCC) 11/25/2024 2:00 PM LAY OUT FORMER Comprehensive Visit Department of Nutrition and Diabetes Education in [place], [place] [address] [place] [phone] Jake Ellington M.D. Epp, Lisa M, RDN, LD Malnutrition Severe Protein-Calorie (HCC); Transplant Liver (HCC); Percutaneous Endoscopic Gastrostomy (HCC) 11/25/2024 1:40 PM LAY OUT FORMER Nurse Only Department of Dermatology in [place], [place] [address] [place] [phone] Jonny Sarabia M.D., M.S. Elsi Goldsmith M.D. Daniela Cox, R.N. Discharge Disposition: Home or Self Care 11/25/2024 12:30 PM LAY OUT FORMER Comprehensive Visit Division of Endocrinology in [place], [place] [address] [place] [phone] Bryson Lr M.D. Mcc Use Of Insulin Active (HCC) (Primary Dx); Transplant Liver (HCC); Diabetes Mellitus Type 2 (HCC); Dietary Counseling And Surveillance For Enteral Nutrition; Diabetes Mellitus Type 2 Hyperglycemia (HCC) 11/25/2024 Orders Only [facility] PCP [facility] MNT Kelly Mendez APRN, C.N.P., D.N.P. 11/25/2024 Clinical Communication Department of Radiation Oncology in [place], [place] [address] [place] [phone] Edson Grimm M.D. 11/25/2024 Orders Only Department of Dermatology in [place], [place] [address] [place] [phone] Yue [place] M.D. 11/25/2024 Documentation Department of Dermatology in [place], [place] [address] [place] [phone] Yue [place] M.D. 11/24/2024 9:30 AM LAY OUT FORMER Procedure visit Department of Dermatology in [address] [address] Elsi Goldsmith M.D. Malignant Neoplasm Of Face Squamous Cell Discharge Disposition: Home or Self Care 11/24/2024 Ancillary Procedure Department of Dermatology 11/24/2024 Clinical Communication Department of Internal Medicine in [place], [place] [address] [place] [phone] Kelly Mendez APRN, C.N.P., D.N.P. 11/20/2024 Clinical Communication Department of Internal Medicine in [place], [place] [address] [place] [phone] Kelly Mendez APRN, C.N.P., D.N.P. [id number][facility] 11/17/2024 Clinical Communication Division of General Internal Medicine in [place], [place] [address] [place] [address] Halie Lewis R.N. G-tube site care 11/17/2024 Clinical Communication Department of Internal Medicine in [place], [place] [address] [place] [phone] Gi Lezama R.N. Post Hospital Follow-up 11/14/2024 Documentation [facility] Transplantation and Clinical Regeneration in [place], [place] [address] [place] [address] Mavis Aguilar R.N., CDE 11/14/2024 Orders Only [facility]plantation [facility] Clinical Regeneration in [place], [place] [address] [place] [address] Yamilet Chatman R.N. Transplant Liver (HCC) (Primary Dx); Malnutrition Severe Protein-Calorie (HCC) 11/13/2024 11:08 AM LAY OUT FORMER Anesthesia Event Department of Radiology, [facility], in [place], [place] [address] [place] [address] Mele Bansal APRN, CRNA Brytowski, Nathan, APRN, CRNA, DNAP 11/13/2024 Documentation Division of Endocrinology in [place], [place] [address] [place] [address] Halie Lewis R.N. Scheduling 11/13/2024 Orders Only [facility] Transplantation and Clinical Regeneration in [place], [place] [address] [place] [address] Yamilet Chatman R.N. Transplant Liver (HCC) (Primary Dx); Diabetes Mellitus Type 2 (HCC); Dietary Counseling And Surveillance For Enteral Nutrition 11/10/2024 7:42 AM LAY OUT FORMER - 11/14/2024 12:33 PM LAY OUT FORMER Hospital Encounter [facility], [facility], [facility], Tenth Floor [address] [place] [phone] Marlon, Jeyson, M.D. Pint, Mirlande M, REGION MANAGER, C.N.P., D.N.P. Malnutrition Severe Protein-Calorie (HCC) (Primary Dx); Transplant Liver (HCC); Restless Leg Syndrome; Medication Therapy Mcc Not Anticoagulant; Percutaneous Endoscopic Gastrostomy (HCC); Weakness General [R53.1] Discharge Disposition: Home or Self Care 11/06/2024 Intake [facility] 11/05/2024 2:30 PM LAY OUT FORMER Telemedicine [facility] Transplantation and Clinical Regeneration in [place], [place] [address] [place] [address] Deann Zhu APRN, C.N.P., Jayda Foster M.D. Transplant Liver (HCC); Medication Therapy Mcc Not Anticoagulant 11/05/2024 8:00 AM LAY OUT FORMER Telemedicine [facility] Transplantation and Clinical Regeneration in [place], [place] [address] [place] [address] Anibal Shearer P.A.-C. 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 11/04/2024 Clinical Communication Department of Internal Medicine in [place], [place] [address] [place] [phone] Kelly Mendez APRN, C.N.P., D.N.P. [facility] Form ([facility] Order #[id number]) from Last 3 Months Immunizations Immunization Administration [...] 0.6 oz pur e alcohol) last 06/23/22 [facility] Utilities Answer Date Recorded In the past 12 months has e [employer], gas, oil, or water company threatened to [...] How often do you attend faith or gnosticist serv ices? Patient declined 02/04/2023 [...] Answer Date Recorded PHQ-2 Score 6 11/23/2024 [facility] - [...] AM CDT Legal Sex Male 9:11 PM LAY OUT FORMER Gender Identity na 09/07/2021 10:32 AM CDT Sexual Orientation Choose not to disclose 2020 10:32 AM CDT Last Filed Vital Signs Vital Sign Reading Time Taken Comments Blood Pressure 118/90 01/29/2025 1:07 PM CDT Pulse 108 01/29/2025 1:07 PM CDT Temperature 36.1 C (97 F) 01/29/2025 1:07 PM CDT Respiratory Rate 20 11/14/2024 11:59 AM LAY OUT FORMER Oxygen Saturation 99% 11/14/2024 11:59 AM LAY OUT FORMER Inhaled Oxygen Concentration - - Weight 47.2 kg (104 lb) 01/29/2025 1:07 PM CDT Height 166.7 cm (5' 5.63) 11/10/2024 1:00 PM CS T Body Mass Index 16.98 11/10/2024 1:00 PM LAY OUT FORMER Plan of Treatment Upcoming Encounters Date Type Department Care Team (Latest Contact Info) Description 02/03/2025 1:00 PM CDT Appointment Department of Radiation Oncology in [address] [phone] Kiana Oliver M.D. 200 [place] [address] 02/04/2025 1:00 PM CDT Appointment Department of Radiation Oncology in [address] [phone] Kiana Oliver M.D. [address] [place] [phone] 02/05/2025 12:45 PM CDT Appointment Department of Radiation Oncology in [address] [phone] Kiana Oliver M.D. [address] [place] [phone] 02/05/2025 1:00 PM CDT Appointment Department of Radiation Oncology in [address] [phone] Kiana Oliver M.D. [address] [place] [phone] 02/06/2025 1:00 PM CDT Appointment Department of Radiation Oncology in [place], [place] [address] [place] [address] Kiana Oliver M.D. [address] [place] [phone] 02/09/2025 1:00 PM CDT Appointment Department of Radiation Oncology in [place], [place] [address] [place] [address] Kiana Oliver M.D. [address] [place] [phone] 02/10/2025 1:00 PM CDT Appointment Department of Radiation Oncology in [place], [place] [address] [place] [phone] Kiana Oliver M.D. [address] [place] [phone] 02/11/2025 1:00 PM CDT Appointment Department of Radiation Oncology in [place], [place] [address] [place] [phone] Kiana Oliver M.D. [address] [place] [phone] 02/12/2025 1:00 PM CDT Appointment Department of Radiation Oncology in [place], [place] [address] [place] [phone] Kiana Oliver M.D. [address] [place] [phone] 02/12/2025 1:15 PM CDT Appointment Department of Radiation Oncology in [place], [place] [address] [place] [phone] Kiana Oliver M.D. [address] [place] [phone] 02/13/2025 1:00 PM CDT Appointment Department of Radiation Oncology in [place], [place] [address] [place] [phone] Kiana Oliver M.D. [address] [place] [phone] 02/16/2025 7:15 AM CDT Ancillary Procedure Department of Ophthalmology in [address] [address] Maida Tim O.D. [address] [place] [phone] 02/16/2025 8:00 AM CDT Comprehensive Visit Department of Ophthalmology in [address] [phone] Desi Rasmussen O.D. [address] [place] [phone] 02/23/2025 8:15 AM CDT Clinical Communication Virtual Review in [place], [place] 200 [place] [address] 02/24/2025 9:40 AM CDT Office Visit Department of Dermatology in [address] [phone] Felipe Stewart M.D. [address] [place] [phone] 02/24/2025 10:00 AM CDT [facility] in [place], [place] [address] [place] [phone] Aide Welch P.A.-C., M.S. [address] [place] [phone] 03/03/2025 9:00 AM CDT Telemedicine Department of Nutrition and Diabetes Education in [place], [place] [address] [place] [phone] Katelin Alcaraz, REGION MANAGER, C.N.P., D.N.P. [address] [place] [phone] Mansi Ross M.S., RDN, LD [address] [place] [phone] Health Maintenance Due Date Last Done Comments [...] this topic Medical Devices Implanted Type Area Marine Welder Device Identifier Shelf Expiration Date Model / Serial / Lot Vlv Artc Spn3 [facility] 26 - [id number] - [id number] Implanted:Qty: 1 on 05/20/2024 by Gilbert Quintero M.D. at [facility] Cardiac Valve Prosthesis N/A: Heart [employer] [id number] 06/06/[address] 26 / [id number] / Coil [employer]td 0.786v51l38 - [id number] Implanted:Qty: 1 on 2023 by Noah Fontaine M.D. at [facility] Embolization Co[employer] 05/20/2028 [id number] / / [id number] Co[employer] 0.810w97h19 - [id number] Implanted:Qty: 1 on 2023 by Noah Fontaine M.D. at [facility] Embolization Co[employer] 05/20/2028 [id number] / / [id number] Coil [employer] 0.075t67w13 - [id number] Implanted:Qty: 1 on 2023 by Noah Fontaine M.D. at [facility] Embolization [employer] 08/07/2024 [id number] / / [id number] Co[employer] 0.406b55q82 - [id number] Implanted:Qty: 1 on 2023 by Noah Fontaine M.D. at [facility] Embolization [employer] 05/14/2028 [id number] / / [id number] [employer] 0.249t17j60 - [id number] Implanted:Qty: 1 on 2023 by Noah Fontaine M.D. at [facility] Embolization [employer] 05/14/2028 [id number] / / [id number] [employer] 0.813k20u87 - [id number] Implanted:Qty: 1 on 2023 by Noah Fontaine M.D. at [facility] Embolization [employer] 08/07/2024 [id number] / / [id number] [employer] 0.430u30l50 - [id number] Implanted:Qty: 1 on 2023 by Noah Fontaine M.D. at [facility] Embolization [employer] 05/14/2028 [id number] / / [id number] [employer] 0.863s87p50 - [id number] Implanted:Qty: 1 on 2023 by Noah Fontaine M.D. at [facility] Embolization [employer] 05/14/2028 [id number] / / [id number] [employer] 0.672j45c16 - [id number] Implanted:Qty: 1 on 2023 by Noah Fontaine M.D. at [facility] Embolization [employer] 05/14/2028 [id number] / / [id number] [employer] 0.117a09b24 - [id number] Implanted:Qty: 1 on 2023 by Noah Fontaine M.D. at [facility] Embolization [employer] 02/16/2026 [id number] / / [id number] [employer] 0.314b10n10 - [id number] Implanted:Qty: 1 on 2023 by Noah Fontaine M.D. at [facility] Embolization [employer] 05/20/2028 [id number] / / [id number] [employer] 0.532h72p75 - [id number] Implanted:Qty: 1 on 2023 by Noah Fontaine M.D. at [facility] Embolization [employer] 05/20/2028 [id number] / / [id number] [employer] 0.591g38m09 - [id number] Implanted:Qty: 1 on 2023 by Noah Fontaine M.D. at [facility] Embolization [employer] 03/28/2028 [id number] / / [id number] [employer] 0.788o28q40 - [id number] Implanted:Qty: 1 on 2023 by Noah Fontaine M.D. at [facility] Embolization [employer] 04/12/2028 [id number] / / [id number] [employer] 0.824t05a12 - [id number] Implanted:Qty: 1 on 2023 by Noah Fontaine M.D. at [facility] Embolization [employer] 05/19/2027 [id number] / / [id number] [employer] 0.640w61r77 - [id number] Implanted:Qty: 1 on 2023 by Noah Fontaine M.D. at [facility] Embolization [employer] 04/04/2028 [id number] / / [id number] [employer] 0.798v59a19 - [id number] Implanted:Qty: 1 on 2023 by Noah Fontaine M.D. at [facility] Embolization [employer] 03/28/2028 [id number] / / [id number] [employer] 0.428f42m37 - [id number] Implanted:Qty: 1 on 2023 by Noah Fontaine M.D. at [facility] Embolization [employer] 07/17/2027 [id number] / / [id number] [employer] 0.994i93j74 - [id number] Implanted:Qty: 1 on 2023 by Noah Fontaine M.D. at [facility] Embolization [employer] 10/17/2026 [id number] / / [id number] Coil Mreye .609m1u2 - [id number] Implanted:Qty: 1 on 2023 by Noah Fontaine M.D. at [facility] Embolization [employer] 03/13/2028 [id number] / / [id number] Coil Mreye .570p9n7 - [id number] Implanted:Qty: 1 on 2023 by Noah Fontaine M.D. at [facility] Embolization [employer] 03/13/2028 [id number] / / [id number] Coil [employer] 0.007k56v35 - [id number] Implanted:Qty: 1 on 2023 by Noah Fontaine M.D. at [facility] Embolization [employer] 04/23/2028 [id number] / / [id number] [employer] 0.049j89e91 - [id number] Implanted:Qty: 1 on 2023 by Noah Fontaine M.D. at [facility] Embolization [employer] 04/23/2028 [id number] / / [id number] [employer] 0.534b39e04 - [id number] Implanted:Qty: 1 on 2023 by Noah Fontaine M.D. at [facility] Embolization [employer] 04/23/2028 [id number] / / [id number] Coil [employer] 0.040m80l68 - [id number] Implanted:Qty: 1 on 2023 by Noah Fontaine M.D. at [facility] Embolization [employer] 12/01/2026 R87162 / / [id number] Coil [employer] 0.845v13o30 - [id number] Implanted:Qty: 1 on 2023 by Noah Fontaine M.D. at [facility] Embolization [employer] 12/01/2026 [id number] / / [id number] [employer]il [employer] 0.737p55o16 - [id number] Implanted:Qty: 1 on 2023 by Noah Fontaine M.D. at [facility] Embolization [employer] 05/20/2028 [id number] / / [id number] Clp Hrzn Ti 6 Clp Venu - [id number] Implanted:Qty: 1 on 11/10/2023 by Aurea Virk M.D. at [facility] Hardware e.g. pins/screws/r ods IgnitionOne [id number] / / Persona-Artic Surf Mc E-F 11mm Rt - [id number] Implanted:Qty: 1 on 01/06/2016 Knee Implant Other/Legacy - See Implant Description [employer]e [employer] Description:Device Manufactu rer - Trae. Body Location - Other. Right. Device Status Text - KNEE [id number]. Persona-Tibia 5 Deg Rt Sz E - [id number] Implanted:Qty: 1 on 01/06/2016 Knee Implant Other/Legacy - See Implant Description [employer] Description:Device Manufactu rer - Trae. Body Location - Other. Right. Device Status Text - KNEE [id number]. Persona-Femur Cr Std Rt Sz 6 - [id number] Implanted:Qty: 1 on 01/06/2016 Knee Implant Other/Legacy - See Implant Description [employer] Description:Device Manufactu rer - Trae. Body Location - Other. Right. Device Status Text - KNEE [id number]. Ppm System Dr Rosen - [id number] - [id number] Implanted:Qty: 1 on 05/20/2024 by Emily Arroyo M.D. 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 Remission (HCC) TACROLIMUS LEVEL, B Routine 01/30/2025 10:33 AM CDT Transplant Liver (HCC) 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 Remission (HCC) GLUCOSE, FASTING, S/P Routine 01/30/2025 10:33 AM CDT Transplant Liver (HCC) Medication Therapy Mcc Not Anticoagulant 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 Remission (HCC) COMPREHENSIVE METABOLIC PANEL, S/P Routine 01/30/2025 10:33 AM CDT Transplant Liver (HCC) Medication Therapy Mcc Not [...] DAILY TREATMENT INFORMATION Routine 01/23/2025 1:13 PM LAY OUT FORMER ARIA DAILY TREATMENT INFORMATION Routine 01/22/2025 12:52 PM LAY OUT FORMER ARIA DAILY TREATMENT INFORMATION Routine 01/21/2025 12:39 PM LAY OUT FORMER ARIA DAILY TREATMENT INFORMATION Routine 01/20/2025 12:54 PM LAY OUT FORMER ARIA DAILY TREATMENT INFORMATION Routine 01/19/2025 12:36 PM LAY OUT FORMER ARIA DAILY TREATMENT INFORMATION Routine 01/16/2025 12:54 PM LAY OUT FORMER ONCOLOGY IMAGE EXAM Routine 01/15/2025 1 :33 PM LAY OUT FORMER ARIA DAILY TREATMENT INFORMATION Routine 01/15/2025 12:48 PM LAY OUT FORMER ARIA DAILY TREATMENT INFORMATION Routine 01/14/2025 12:58 PM LAY OUT FORMER ARIA DAILY TREATMENT INFORMATION Routine 01/13/2025 12:37 PM LAY OUT FORMER ARIA DAILY TREATMENT INFORMATION Routine 01/12/2025 12:49 PM LAY OUT FORMER ARIA DAILY TREATMENT INFORMATION Routine 01/09/2025 1:09 PM LAY OUT FORMER ARIA DAILY TREATMENT INFORMATION Routine 01/08/2025 12:57 PM LAY OUT FORMER BILIRUBIN DIRECT, S/P Routine 01/08/2025 9:59 AM LAY OUT FORMER Transplant Liver (HCC) 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 Remission (HCC) CBC WITH DIFFERENTIAL, B Routine 01/08/2025 9:59 AM LAY OUT FORMER Transplant Liver (HCC) 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 Remission (HCC) TACROLIMUS LEVEL, B Routine 01/08/2025 9 :59 AM LAY OUT FORMER Transplant Liver (HCC) Medication Therapy Mcc Not Anticoagulant 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 Remission (HCC) GLUCOSE, FASTING, S/P Routine 01/08/2025 9:59 AM LAY OUT FORMER Transplant Liver (HCC) Medication Therapy Mcc Not Anticoagulant 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 Remission (HCC) COMPREHENSIVE METABOLIC PANEL, S/P Routine 01/08/2025 9:59 AM LAY OUT FORMER Transplant Liver (HCC) 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 Remission (HCC) ARIA DAILY TREATMENT INFORMATION Routine 01/07/2025 1:26 PM LAY OUT FORMER ARIA DAILY TREATMENT INFORMATION Routine 01/06/2025 12:55 PM LAY OUT FORMER ARIA DAILY TREATMENT INFORMATION Routine 01/05/2025 1:52 PM LAY OUT FORMER GLUCOSE, FASTING, S/P Routine 12/26/2024 10:06 AM LAY OUT FORMER Transplant Liver (HCC) 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 Remission (HCC) BILIRUBIN DIRECT, S/P Routine 12/26/2024 10:05 AM LAY OUT FORMER Transplant Liver (HCC) Medication Therapy Mcc Not Anticoagulant 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 Remission (HCC) CBC WITH DIFFERENTIAL, B Routine 12/26/2024 10:05 AM LAY OUT FORMER Transplant Liver (HCC) Medication Therapy Mcc Not Anticoagulant 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 Remission (HCC) TACROLIMUS LEVEL, B Routine 12/26/2024 10:05 AM LAY OUT FORMER Transplant Liver (HCC) 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 Remission (HCC) COMPREHENSIVE METABOLIC PANEL, S/P Routine 12/26/2024 10:05 AM LAY OUT FORMER Transplant Liver (HCC) 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 Remission (HCC) INITIAL RAD ONC TREATMENT PLANNING CT SIMULATION Routine 12/23/2024 1:00 PM 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 DENTAL LAB Routine 12/22/2024 MEDICAL PANOREX Routine 12/19/2024 3:11 PM 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 DERMATOLOGY IMAGE EXAM Routine 12/19/2024 12:00 AM LAY OUT FORMER ONCOLOGY IMAGE EXAM Routine 12/11/2024 2 :23 PM LAY OUT FORMER BILIRUBIN DIRECT, S/P Routine 12/08/2024 9:35 AM LAY OUT FORMER Transplant Liver (HCC) Medication Therapy Mcc Not Anticoagulant 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 Remission (HCC) CBC WITH DIFFERENTIAL, B Routine 12/08/2024 9:35 AM LAY OUT FORMER Transplant Liver (HCC) 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 Remission (HCC) TACROLIMUS LEVEL, B Routine 12/08/2024 9 :35 AM LAY OUT FORMER Transplant Liver (HCC) Medication Therapy Mcc Not Anticoagulant 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 Remission (HCC) GLUCOSE, FASTING, S/P Routine 12/08/2024 9:35 AM LAY OUT FORMER Transplant Liver (HCC) 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 Remission (HCC) COMPREHENSIVE METABOLIC PANEL, S/P Routine 12/08/2024 9:35 AM LAY OUT FORMER Transplant Liver (HCC) Medication Therapy Mcc Not Anticoagulant 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 Remission (HCC) INTERFACED REMOTE DEVICE CHECK Routine 12/05/2024 12:54 [address] OUT FORMER [address] CHEST WITH IV CONTRAST RAD - Routine (most inpatients and all outpatients) 12/01/2024 1:46 PM 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 CT NECK SOFT TISSUE WITH IV CONTRAST RAD - Routine (most inpatients and all outpatients) 12/01/2024 1:41 PM 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 CT HEAD WITHOUT AND WITH IV CONTRAST RAD - Routine (most inpatients and all outpatients) 12/01/2024 1:41 PM 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 BILIRUBIN DIRECT, S/P Routine 11/27/2024 9:44 AM LAY OUT FORMER Transplant Liver (HCC) 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 Remission (HCC) CBC WITH DIFFERENTIAL, B Routine 11/27/2024 9:44 AM LAY OUT FORMER Transplant Liver (HCC) Medication Therapy Mcc Not Anticoagulant 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 Remission (HCC) TACROLIMUS LEVEL, B Routine 11/27/2024 9 :44 AM LAY OUT FORMER Transplant Liver (HCC) 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 Remission (HCC) GLUCOSE, FASTING, S/P Routine 11/27/2024 9:44 AM LAY OUT FORMER Transplant Liver (HCC) 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 Remission (HCC) COMPREHENSIVE METABOLIC PANEL, S/P Routine 11/27/2024 9:44 AM LAY OUT FORMER Transplant Liver (HCC) 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 Remission (HCC) DERMATOLOGY IMAGE EXAM Routine 11/24/2024 12:00 AM LAY OUT FORMER GLUCOSE POCT, B Routine 11/14/2024 8:15 AM LAY OUT FORMER TACROLIMUS LEVEL, B Routine 11/14/2024 5 :03 AM LAY OUT FORMER CYSTATIN C WITH EGFR Routine 11/14/2024 5:03 AM LAY OUT FORMER HEPATIC FUNCTION PANEL, S Routine 11/14/2024 5:03 AM LAY OUT FORMER PHOSPHORUS (INORGANIC), S Routine 11/14/2024 5:03 AM LAY OUT FORMER MAGNESIUM, S Routine 11/14/2024 5:03 AM LAY OUT FORMER CBC WITHOUT DIFFERENTIAL, B Routine 11/14/2024 5:03 AM LAY OUT FORMER BASIC METABOLIC PANEL, S/P Routine 11/14/2024 5:03 AM LAY OUT FORMER POTASSIUM, S/P Routine 11/13/2024 4:27 PM LAY OUT FORMER IR GASTROSTOMY TUBE PLACEMENT RAD - Routine (most inpatients and all outpatients) 11/13/2024 11:50 AM LAY OUT FORMER GLUCOSE POCT, B Routine 11/13/2024 10:16 AM LAY OUT FORMER CYSTATIN C WITH EGFR Routine 11/13/2024 5:07 AM LAY OUT FORMER TACROLIMUS LEVEL, B Routine 11/13/2024 5 :07 AM LAY OUT FORMER HEPATIC FUNCTION PANEL, S Routine 11/13/2024 5:07 AM LAY OUT FORMER PHOSPHORUS (INORGANIC), S Routine 11/13/2024 5:07 AM LAY OUT FORMER MAGNESIUM, S Routine 11/13/2024 5:07 AM LAY OUT FORMER CBC WITHOUT DIFFERENTIAL, B Routine 11/13/2024 5:07 AM LAY OUT FORMER BASIC METABOLIC PANEL, S/P Routine 11/13/2024 5:07 AM LAY OUT FORMER GLUCOSE POCT, B Routine 11/12/2024 9:03 PM LAY OUT FORMER GLUCOSE POCT, B Routine 11/12/2024 8:05 PM LAY OUT FORMER GLUCOSE POCT, B Routine 11/12/2024 12:23 PM LAY OUT FORMER GLUCOSE POCT, B Routine 11/12/2024 9:16 AM LAY OUT FORMER PHOSPHORUS (INORGANIC), S Timed 11/12/2024 5:37 AM LAY OUT FORMER MAGNESIUM, S Timed 11/12/2024 5:37 AM LAY OUT FORMER BASIC METABOLIC PANEL, S/P Timed 11/12/2024 5:37 AM LAY OUT FORMER TACROLIMUS LEVEL, B Routine 11/12/2024 5 :37 AM LAY OUT FORMER CBC WITHOUT DIFFERENTIAL, B Routine 11/12/2024 5:37 AM LAY OUT FORMER GLUCOSE POCT, B Routine 11/12/2024 3:31 AM LAY OUT FORMER PHOSPHORUS (INORGANIC), S Timed 11/11/2024 8:09 PM LAY OUT FORMER MAGNESIUM, S Timed 11/11/2024 8:09 PM LAY OUT FORMER BASIC METABOLIC PANEL, S/P Timed 11/11/2024 8:09 PM LAY OUT FORMER BASIC METABOLIC PANEL, S/P Timed 11/11/2024 8:09 PM LAY OUT FORMER GLUCOSE POCT, B Routine 11/11/2024 5:48 PM LAY OUT FORMER GLUCOSE POCT, B Routine 11/11/2024 10:47 AM LAY OUT FORMER PHOSPHORUS (INORGANIC), S Routine 11/11/2024 5:54 AM LAY OUT FORMER TACROLIMUS LEVEL, B Timed 11/11/2024 5 :54 AM LAY OUT FORMER VITAMIN B12 ASSAY, S Routine 11/11/2024 5:54 AM LAY OUT FORMER COPPER, S Routine 11/11/2024 5:54 AM LAY OUT FORMER ZINC, S Routine 11/11/2024 5:54 AM LAY OUT FORMER VITAMIN A AND VITAMIN E, S Routine 11/11/2024 5:54 AM LAY OUT FORMER CBC WITHOUT DIFFERENTIAL, B Routine 11/11/2024 5:54 AM LAY OUT FORMER COMPREHENSIVE METABOLIC PANEL, S/P Routine 11/11/2024 5:54 AM LAY OUT FORMER TESTOSTERONE, TOT AND FR, S Routine 11/11/2024 5:54 AM LAY OUT FORMER POTASSIUM, RANDOM, U Routine 11/11/2024 12:22 AM LAY OUT FORMER BASIC METABOLIC PANEL, S/P Timed 11/10/2024 8:10 PM LAY OUT FORMER PHOSPHORUS (INORGANIC), S Timed 11/10/2024 8:10 PM LAY OUT FORMER MAGNESIUM, S Timed 11/10/2024 8:10 PM LAY OUT FORMER GLUCOSE POCT, B Routine 11/10/2024 5:45 PM LAY OUT FORMER DX ABDOMEN PORTABLE ANTERIOR POSTERIOR 1 VIEW RAD - Routine (most inpatients and all outpatients) 11/10/2024 11:55 AM LAY OUT FORMER COMPREHENSIVE METABOLIC PANEL, S/P STAT 11/10/2024 8:27 AM LAY OUT FORMER PROTHROMBIN TIME (PT), P STAT 11/10/2024 8:27 AM LAY OUT FORMER BILIRUBIN DIRECT, S/P STAT 11/10/2024 8:27 AM LAY OUT FORMER CBC WITHOUT DIFFERENTIAL, B STAT 11/10/2024 8:27 AM LAY OUT FORMER PHOSPHORUS (INORGANIC), S Routine 11/10/2024 8:26 AM LAY OUT FORMER MAGNESIUM, S Routine 11/10/2024 8:26 AM LAY OUT FORMER HEMOGLOBIN A1C, B Routine 10/20/2024 7:0 4 AM LAY OUT FORMER Transplant Liver (HCC) 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 Alcoholism Personal History (HCC) Malignant Neoplasm Of Liver Hepatocellular (HCC) LIPID PANEL, S Routine 10/20/2024 7:04 AM LAY OUT FORMER Transplant Liver (HCC) Medication Therapy Mcc Not Anticoagulant Alcoholism Personal History (HCC) Malignant Neoplasm Of Liver Hepatocellular (HCC) ALBUMIN, RANDOM, U Routine 04/07/2024 2: 55 PM CDT Diabetes Mellitus Type 2 Hyperglycemia (HCC) HIV-1/-2 AG AND AB SCREEN, PLASMA STAT 11/09/2023 7:56 PM LAY OUT FORMER COLONOSCOPY Routine 07/02/2023 11:00 AM CDT Alcoholic [...] Elapsed Days 28 RUBIO ARIA Reference Point [id number] RUBIO ARIA Dosage Given to Date cGy 4200 RUBIO ARIA Session Dosage Given 200 RUBIO ARIA Plan ID [id number] RUBIO ARIA Fractions Treated to Date 21 RUBIO ARIA Planned Total Fractions 30 RUBIO ARIA Prescribed Dose Per Fraction 200 RUBIO ARIA Prescription Dose in cGy 6000 RUBIO ARIA Plan Primary Reference Point [id number] RUBIO ARIA 02/02/2025 12:1 6 PM CDT us Provider Not In System RADIATION ONCOLOGY ORDERA BLES Final Result KELLEN PEREZ na * (ABNORMAL) Tacrolimus, Trough (01/30/2025 10:33 AM CDT) Only the most recent of9 resultswithin the time period is included. Tacrolimus, Trough 2.4(L) 5.0-15.0 (Trough) ng/mL 01/31/2025 10:45 AM CDT [facility] Comment: ----ADDITIONAL INFORMATION---- Target steady-state trough concentrations vary depending on the type of transplant, concomitant immunosuppression, clinical/institutional protocols, and time post-transplant. Results should be interpreted in conjunction with this clinical information and any physical signs/symptoms of rejection/toxicity. Testing performed by Liquid Chromatography-Tandem Mass Spectrometry (LC-MS/MS). This test was developed and its performance characteristics determined by [facility] in a manner consistent with CLIA requirements. This test has not been cleared or approved by the U.S. Food and Drug Administration. Blood (Blood, Venous) 01/30/2025 10:33 AM CDT 01/31/2025 7:16 AM CDT us Deann Zhu APRN, C.N.P., M.S. LAB BLOOD NON ADD-ON Final Result [facility] [address] [place] [address] [facility] [address] [place] [address] [place] [address] * (ABNORMAL) CBC with Differential, Blood (01/30/2025 10:33 AM CDT) Only the most recent of5 resultswithin the time period is included. Pathologist [facility] Hemoglobin 11.3(L) 13.2 - 16.6 g/dL 01/30/2025 [...] ADD -ON Final Result Performing Organization Address [facility]/ZIP Co de Phone Number [facility] [address] [place] [address], [place] [id number] [facility] [place] [address] [place] [address] * (ABNORMAL) Glucose, Fasting (01/30/2025 10:33 AM [...] NON ADD-ON Final Result Performing Organization Address City/[facility]/ZIP Co de Phone Number [facility] [address] [place] [address], [place] OWAT [facility] [place] [address] [place] [address] * Bilirubin, Direct (01/30/2025 10:33 AM CDT) Only the most recent of6 resultswithin the time period is included. Bilirubin, Direct, P 0.2 0.0 - 0.3 mg/dL 01/30/2025 1:22 PM CDT OWAT Blood (Blood, Venous) 01/30/2025 10:33 AM CDT 01/30/2025 12:40 PM CDT us Deann Zhu APRN, C.N.P., M.S. LAB BLOOD ADD -ON Final Result [facility] [address] [place] [facility] [place] [address], [place] OW[place] [facility] [place] [address] [place] [facility] [place] [address] * (ABNORMAL) Comprehensive Metabolic Panel (01/30/2025 10:33 AM CDT) Only the most recent of7 resultswithin the time period is included. [facility] Potassium, P 5.6(H) 3.6 - 5.2 mmol/L [...] ADD -ON Final Result Performing Organization Address City/[facility] Co de Phone Number [facility] [address] [place] [address], [facility] [[email or web address]] OWAT [facility] [place] [address] [place] [address] * Face 507-Oncology Image Exam (01/15/2025 1:33 PM LAY OUT FORMER) Only the most recent of2 resultswithin the time period is included. 01/15/2025 1:31 PM LAY OUT FORMER Narrative [facility] - 01/15/2025 1:33 PM LAY OUT FORMER This order has been created and auto-finalized to support the import of images acquired without order. The clinical documentation to support these images can be found on the encounter that produced images. us Provider Not In System IMG NON RAD IMAGING PROCE DURES Final Result Performing Organization Address City/[facility]/ZIP Co de Phone Number [facility] NA * Initial Rad Onc Treatment Planning CT Simulation (12/23/2024 1:00 PM LAY OUT FORMER) Narrative [facility] - 12/23/2024 1:00 PM LAY OUT FORMER Macrina Bernal 12/23/2024 2:03 PM Initial Rad [...] esult * [facility] (12/19/2024 3:11 PM LAY OUT FORMER) Ni Jackson D.D.S. - 12/19/2024 3:11 PM LAY OUT FORMER Panoramic radiograph was taken and revealed There [...] D.D.S. DENTAL ORDERABLES Final R esult * [facility] Image Exam (12/19/2024 12:00 AM LAY OUT FORMER) Only the most recent of2 resultswithin the time period is included. Edin [facility] - 12/19/2024 2:58 PM LAY OUT FORMER This order has been created and auto-finalized to support the import of images acquired without order. The clinical documentation to support these images can be found on the encounter that produced images. us Provider Not In System IMG NON RAD IMAGING PROCE DURES Final Result [facility] NA * CAR CARDIAC DEVICE INTERROGATION (12/05/2024 12:54 PM LAY OUT FORMER) Date Time Interrogation Session [id number] [facility] Type Interrogation Session Remote [facility] Implantable Pulse Generator Marine Welder Med[employer]onic [facility] Implantable Pulse Generator Type Pacemaker [facility] Implantable Pulse Generator Model [id number] [facility] Implantable Pulse Generator Serial Number [id number] [facility] Implantable Pulse Generator Implant Date [id number] [facility] Battery Remaining Longevity 120.0 mo [facility] Battery Voltage 3.100 [facility] 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 2.580 [facility] [place] Statistic RV Percent Paced 0.87 [facility] Lead Channel Sensing Intrinsic Amplitude 5.000 [facility] Lead Channel Setting Sensing Sensitivity 2.00 [facility] Lead Channel Impedance Value 490 [facility] Lead Channel Pacing Threshold Amplitude 0.750 [facility] Lead Channel Pacing Threshold Pulse Width 0.2 [facility] Lead Channel Measurements Date and Time 20241205 [facility] Lead Channel Setting Pacing Amplitude 1.380 [facility] Lead Channel Setting Pacing Pulse Width 0.2 [facility] [place] Setting Mode (NBG Code) VDD [facility] [place] Setting Lower Rate Limit 50 [facility] [place] Setting Maximum Tracking Rate 105 [facility] [place] Setting Maximum Sensor Rate 120 [facility] [place] Setting FERNANDA Delay 20 [facility] Anatomical Region Laterality Modality Other 12/06/2024 9:06 PM LAY OUT FORMER Impressions 12/06/2024 9:06 PM LAY OUT FORMER Encounter Impression: Title: Normal Remote: No Events [...] Chest with IV Contrast (12/01/2024 1:46 PM LAY OUT FORMER) Anatomical Region Laterality Modality Chest, Thoracic RST LOS, Tho racic ARZ LOS, Thoracic ARZ LOS, Thoracic FLA LOS N/A Computed Tomography 12/01/2024 1:4 6 PM LAY OUT FORMER Impressions 12/01/2024 2:11 PM LAY OUT FORMER 1. Interval multifocal pure groundglass opacities within the right upper lobe, most likely infectious/inflammatory etiology given multiplicity and new findings since 10/21/2024. Short interval follow-up chest CT recommended in 3 months to document resolution. 2. Stable small solid lower lobe pulmonary nodules measuring 4 mm or less. No new or enlarging solid pulmonary nodules. Narrative 12/01/2024 2:11 PM LAY OUT FORMER EXAM: CT CHEST WITH IV CONTRAST COMPARISON: [...] enlarging solid pulmonary nodules. Elsi Goldsmith M.D. [facility] [place] PROCEDURES Final Resul t * CT Neck Soft Tissue with IV Contrast (12/01/2024 1:41 PM LAY OUT FORMER) Anatomical Region Laterality Modality Neck, Neuroradiology RST LOS , Neuroradiology ARZ LOS, Neuroradiology FLA LOS N/A Computed Tomography 12/01/2024 1:47 PM LAY OUT FORMER Impressions 12/01/2024 2:28 PM LAY OUT FORMER No acute findings. No evidence of cervical mass or adenopathy. Narrative 12/01/2024 2:28 PM LAY OUT FORMER EXAM: CT NECK SOFT TISSUE WITH IV [...] cervical mass or adenopathy. Elsi Goldsmith M.D. [facility] [place] PROCEDURES Final Resul t * CT Head without and with IV Contrast (12/01/2024 1:41 PM LAY OUT FORMER) Anatomical Region Laterality Modality Head, Neuroradiology RST LOS , Neuroradiology ARZ LOS, Neuroradiology FLA LOS N/A Computed Tomography 12/01/2024 1:36 PM LAY OUT FORMER Impressions 12/01/2024 2:32 PM LAY OUT FORMER No acute intracranial abnormality or evidence of intracranial metastatic disease or vascular abnormality. Narrative 12/01/2024 2:32 PM LAY OUT FORMER EXAM: CT HEAD WITHOUT AND WITH IV [...] or vascular abnormality. us Elsi Goldsmith M.D. [facility] [place] PROCEDURES Final Resul t * (ABNORMAL) Glucose, POCT (11/14/2024 8:15 AM LAY OUT FORMER) Only the most recent of10 resultswithin the time period is included. Glucose, POCT, B 271(H) 70 - 140 mg/dL 11/14/2024 8:17 AM LAY OUT FORMER PCDE Site Capillary 11/14/2024 8:17 AM LAY OUT FORMER PCDE Blood 11/14/2024 8:15 AM LAY OUT FORMER 11/14/2024 8:18 AM LAY OUT FORMER us Unknown Provider LAB POCT ORDERABLES-MANUAL Aishwarya l Result POC [facility] [address] [place] [address], [facility] [email or web address]] PCDE [facility] POC [address] [place] [address] * (ABNORMAL) Hepatic Function Panel (11/14/2024 5:03 AM LAY OUT FORMER) Only the most recent of2 resultswithin the time period is included. Bilirubin, Total, S 0.4 0.0 - 1.2 mg/dL 11/14/2024 6:08 AM LAY OUT FORMER DTL Bilirubin, Direct, S <0.2 0.0 - 0.3 mg/dL 11/14/2024 6:08 AM LAY OUT FORMER DTL Aspartate Aminotransferase (AST), S 14 8 - 48 U/L 11/14/2024 6:08 AM LAY OUT FORMER DTL Alanine Aminotransferase (ALT), S <7(L) 7 - 55 U/L 11/14/2024 6:23 AM LAY OUT FORMER DTL Alkaline Phosphatase, S 66 40 - 129 U/L 11/14/2024 6:08 AM LAY OUT FORMER DTL Albumin, S 3.7 3.5 - 5.0 g/dL 11/14/2024 6:08 AM LAY OUT FORMER DTL Protein, Total, S 6.0(L) 6.3 - 7.9 g/dL 11/14/2024 6:08 AM LAY OUT FORMER DTL Blood (Blood, Venous) 11/14/2024 5:03 AM LAY OUT FORMER 11/14/2024 5:46 AM LAY OUT FORMER Nixon Gamino M.D. LAB BLOOD ADD-ON Final Resul t [facility] [place] [address] [place] [address], [facility] [email or web address]] DTL [facility] [address] [place] [address] * (ABNORMAL) Cystatin C with Estimated GFR (11/14/2024 5:03 AM LAY OUT FORMER) Only the most recent of2 resultswithin the time period is included. Pathologist [facility] eGFR by Cystatin C 42(L) >60 mL/min/BSA 11/14/2024 6:08 AM LAY OUT FORMER DTL Comment: Estimated GFR calculated using the [...] 0.67 - 1.21 mg/L 11/14/2024 6:08 AM LAY OUT FORMER DTL Blood (Blood, Venous) 11/14/2024 5:03 AM LAY OUT FORMER 11/14/2024 5:46 AM LAY OUT FORMER us Jeyson Maosn M.D. LAB BLOOD ADD-ON Final Resu lt [facility] [place] [address] [place] [address], [facility] [[email or web address]] [facility] [address] [place] [address] * (ABNORMAL) CBC without Differential (11/14/2024 5:03 AM LAY OUT FORMER) Only the most recent of5 resultswithin the time period is included. Hemoglobin 10.2(L) 13.2 - 16.6 g/dL 11/14/2024 5:44 AM LAY OUT FORMER DTL Hematocrit 31.4(L) 38.3 - 48.6 % 11/14/2024 5:44 AM LAY OUT FORMER DTL Erythrocytes 3.77(L) 4.35 - 5.65 x10(12)/L 11/14/2024 5:44 AM LAY OUT FORMER DTL MCV 83.3 78.2 - 97.9 fL 11/14/2024 5:44 AM LAY OUT FORMER DTL RBC Distrib Width 15.7(H) 11.8 - 14.5 % 11/14/2024 5:44 AM LAY OUT FORMER DTL Platelet Count 169 135 - 317 x10(9)/L 11/14/2024 5:44 AM LAY OUT FORMER DTL Leukocytes 5.6 3.4 - 9.6 x10(9)/L 11/14/2024 5:44 AM LAY OUT FORMER DTL Blood (Blood, Venous) 11/14/2024 5:03 AM LAY OUT FORMER 11/14/2024 5:30 AM LAY OUT FORMER us Elaina Beltran M.D. LAB BLOOD ADD-ON Final Resu lt Performing Organization Address City/[facility]/ZIP Co de Phone Number [facility] [place] [address] [place] [address], [facility] [address] [place] [address] * Phosphorus Inorganic (11/14/2024 5:03 AM LAY OUT FORMER) Only the most recent of7 resultswithin the time period is included. Phosphorus (Inorganic), S 3.2 2.5 - 4.5 mg/dL 11/14/2024 6:08 AM LAY OUT FORMER DTL Blood (Blood, Venous) 11/14/2024 5:03 AM LAY OUT FORMER 11/14/2024 5:46 AM LAY OUT FORMER us Elaina Beltran M.D. LAB BLOOD ADD-ON Final Resu lt Performing Organization Address City/[facility]/ZIP Co de Phone Number [facility] [place] [address] [place] [address], [facility] [address] [place] [address] * Magnesium (11/14/2024 5:03 AM LAY OUT FORMER) Only the most recent of6 resultswithin the time period is included. Magnesium, S 1.9 1.7 - 2.3 mg/dL 11/14/2024 6:08 AM LAY OUT FORMER DTL Blood (Blood, Venous) 11/14/2024 5:03 AM LAY OUT FORMER 11/14/2024 5:46 AM LAY OUT FORMER us Elaina Beltran M.D. LAB BLOOD ADD-ON Final Resu lt Performing Organization Address City/[facility]/ZIP Co de Phone Number [facility] [place] [address] [place] [address], [facility] [address] [place] [address] * (ABNORMAL) Basic Metabolic Panel (11/14/2024 5:03 AM LAY OUT FORMER) Only the most recent of6 resultswithin the time period is included. Potassium, S 4.7 3.6 - 5.2 mmol/L 11/14/2024 6:08 AM LAY OUT FORMER DTL Sodium, S 135 135 - 145 mmol/L 11/14/2024 6:08 AM LAY OUT FORMER DTL Chloride, S 97(L) 98 - 107 mmol/L 11/14/2024 6:08 AM LAY OUT FORMER DTL Bicarbonate, S 26 22 - 29 mmol/L 11/14/2024 6:08 AM LAY OUT FORMER DTL Anion Gap 12 7 - 15 11/14/2024 6:08 AM LAY OUT FORMER DTL BUN (Blood Urea Nitrogen), S 29(H) 8 - 24 mg/dL 11/14/2024 6:08 AM LAY OUT FORMER DTL Creatinine 0.84 0.74 - 1.35 mg/dL 11/14/2024 6:08 AM LAY OUT FORMER DTL Estimated GFR (eGFR) >90 >=60 mL/min/BSA 11/14/2024 6:08 AM LAY OUT FORMER DTL Comment: Estimated GFR calculated using the 2020 CKD_EPI creatinine equation. Calcium, Total, S 9.1 8.8 - 10.2 mg/dL 11/14/2024 6:08 AM LAY OUT FORMER DTL Glucose, S 338(H) 70 - 140 mg/dL 11/14/2024 6:08 AM LAY OUT FORMER DTL Blood (Blood, Venous) 11/14/2024 5:03 AM LAY OUT FORMER 11/14/2024 5:46 AM LAY OUT FORMER Elaina Beltran M.D. LAB BLOOD ADD-ON Final Resu lt [facility] [place] [address] [place] [address], [place] [facility] [address] [place] [address] * (ABNORMAL) Potassium (11/13/2024 4:27 PM LAY OUT FORMER) Potassium, S 5.8(H) 3.6 - 5.2 mmol/L 11/13/2024 5:05 PM LAY OUT FORMER DTL Blood (Blood, Venous) 11/13/2024 4:27 PM LAY OUT FORMER 11/13/2024 4:54 PM LAY OUT FORMER us Mirlande Edmond Darling APRN C.N.P., D.N.P. LAB BLOOD ADD -ON Final Result [facility] [place] [address] [place] [address], [facility] [address] [place] [address] * IR Gastrostomy Tube Placement (11/13/2024 11:50 AM LAY OUT FORMER) Anatomical Region Laterality Modality Abdomen, Vascular Interventi onal RST LOS, Vascular Interventional ARZ LOS, Vascular Interventional FLA LOS N/A X-Ray Angiography Impressions 11/13/2024 12:32 PM LAY OUT FORMER Placement of a 14 Palestinian percutaneous gastrostomy tube. Nothing by mouth or tube for 2 hours (strict). Then use of mouth or tube for water, medications, and/or tube feeds per Nutrition note/order. Exchange tube in 3-5 months. Contact the [facility] clinic at [phone] to schedule the tube exchange. NR Narrative 11/13/2024 12:32 PM LAY OUT FORMER EXAM: IR GASTROSTOMY TUBE PLACEMENT CLINICAL HISTORY: [...] then removed. No complications. Tube Type: Gastrostomy, [place]. Tube Connection: ENFit. Tube Size: 14 Palestinian. Low Profile: No. Disc Height: Two cm. [...] confirmed with aspiration of gas and contrast injection.Tristar wire was then advanced into the stomach [...] then removed. No complications. Tube Type: Gastrostomy, [place]. Tube Connection: ENFit. Tube Size: 14 Palestinian. Low Profile: No. Disc Height: Two cm. [...] by Anesthesiology. IMPRESSION: Placement of a 14 Palestinian percutaneous gastrostomy tube. Nothing by mouthor tube for 2 hours (strict). Then use of mouth or tube for water,medications, and/or tube feeds per Nutrition note/order. Exchange tube in3-5 months. Contact the [facility] at [phone] to schedule the tube exchange. NR us Mirlande Darling APRN, C.N.P., D.N.P. IMG IR PROCED URES Final Result * Vitamin A and Vitamin E (11/11/2024 5:54 AM LAY OUT FORMER) Vitamin A 57.5 32.5 - 78.0 mcg/dL 11/13/2024 1:59 PM LAY OUT FORMER [facility] Comment: ----ADDITIONAL INFORMATION---- This test was developed and its performance characteristics determined by [facility] in a manner consistent with CLIA requirements. This test has not been cleared or approved by the U.S. Food and Drug Administration. A-Tocopherol, Vitamin E 13.2 5.5 - 17.0 mg/L 11/14/2024 7:00 AM LAY OUT FORMER [facility] Blood (Blood, Venous) 11/11/2024 5:54 AM LAY OUT FORMER 11/11/2024 10:25 AM LAY OUT FORMER Belkis Bowling APRNN.P., D.N.P. LAB BLOOD NON ADD-ON Final Result Performing Organization Address [facility]/ZIP Co de Phone Number [facility] [address] [place] [address] [facility] [address] [place] [address] [place] [address] * Copper (11/11/2024 5:54 AM LAY OUT FORMER) Pathologist [facility] Copper, S 101 73 - 129 mcg/dL 11/11/2024 12:26 PM LAY OUT FORMER [facility] Comment: ----ADDITIONAL INFORMATION---- This test was developed and its performance characteristics determined by [facility] in a manner consistent with CLIA requirements. This test has not been cleared or approved by the U.S. Food and Drug Administration. Blood (Blood, Venous) 11/11/2024 5:54 AM LAY OUT FORMER 11/11/2024 9:22 AM LAY OUT FORMER Ximena Hutchinson APRN.N.P., D.N.P. LAB BLOOD NON ADD-ON Final Result Performing Organization Address [facility]/ZIP Co de Phone Number [facility] [address] [place] [address] [facility] [address] [place] [address] [place] [address] * (ABNORMAL) Zinc (11/11/2024 5:54 AM LAY OUT FORMER) Zinc, S 56(L) 60 - 106 mcg/dL 11/11/2024 12:26 PM LAY OUT FORMER [facility] Comment: ----ADDITIONAL INFORMATION---- This test was developed and its performance characteristics determined by [facility] in a manner consistent with CLIA requirements. This test has not been cleared or approved by the U.S. Food and Drug Administration. Blood (Blood, Venous) 11/11/2024 5:54 AM LAY OUT FORMER 11/11/2024 9:22 AM LAY OUT FORMER Mirlande Darling APRN, C.N.P., D.N.P. LAB BLOOD NON ADD-ON Final Result [facility] [address] [place] [address] [facility] [address] [place] [address] [place] [address] * Testosterone, Total and Free (11/11/2024 5:54 AM LAY OUT FORMER) Pathologist [facility] Testosterone, Free, S 6.35 3.67 - 13.9 ng/dL 11/17/2024 2:58 PM LAY OUT FORMER [facility] Comment: ----ADDITIONAL INFORMATION---- This test was developed and its performance characteristics determined by [facility] in a manner consistent with CLIA requirements. This test has not been cleared or approved by the U.S. Food and Drug Administration. Testosterone, Total by Mass Spectrometry, Serum 263 240 - 950 ng/dL 11/15/2024 10:52 AM LAY OUT FORMER [facility] Comment: ----ADDITIONAL INFORMATION---- Testing performed by Liquid Chromatography-Tandem Mass Spectrometry (LC-MS/MS). This test was developed and its performance characteristics determined by [facility] in a manner consistent with CLIA requirements. This test has not been cleared or approved by the U.S. Food and Drug Administration. Blood (Blood, Venous) 11/11/2024 5:54 AM LAY OUT FORMER 11/11/2024 8:28 AM LAY OUT FORMER Mirlande Darling APRN C.N.P., D.N.P. LAB BLOOD NON ADD-ON Final Result Performing Organization Address [facility] Co de Phone Number [facility] [address] [place] [address] [facility] [address] [place] [address] [place] [address] * Vitamin B12 Assay (11/11/2024 5:54 AM LAY OUT FORMER) Vitamin B12 Assay, S 382 180 - 914 ng/L 11/11/2024 8:48 AM LAY OUT FORMER DTL Comment: ----ADDITIONAL INFORMATION---- In patients being evaluated for vitamin B12 deficiency who have intrinsic factor blocking antibodies (IFBA), false elevations of B12 may occur due to IFBA interference thus potentially obscuring a physiological deficiency of B12. If observed B12 concentrations are discordant with clinical presentation, measurement of methylmalonic acid (MMA) should be considered. Blood (Blood, Venous) 11/11/2024 5:54 AM LAY OUT FORMER 11/11/2024 6:31 AM LAY OUT FORMER Mirlande Darling APRN, C.N.P., D.N.P. LAB BLOOD ADD -ON Final Result Performing Organization Address [facility] de Phone Number [facility] [place] [address] [place] [address], [facility] [[email or web address]] DTL [facility] [address] [place] [address] * Potassium, Random, Urine (11/11/2024 12:22 AM LAY OUT FORMER) Potassium, Random, U 50 mmol/L 11/11/2024 1:00 AM LAY OUT FORMER DTL Comment: ----REFERENCE VALUE---- Random urine potassium may be interpreted in conjunction with serum potassium, using both values to calculate fractional excretion of potassium. Urine (Urine, Midstream) 11/11/2024 12:22 AM LAY OUT FORMER 11/11/2024 12:41 AM LAY OUT FORMER Belkis Bowling APRNN.P., D.N.P. LAB URINE ORD ERABLES Final Result [facility] [address] [place] [address], [place] [facility] [address] [place] [address] * DX Abdomen Portable Anterior Posterior 1 View (11/10/2024 11:55 AM LAY OUT FORMER) Anatomical Region Laterality Modality Abdomen, Abdominal RST LOS, Abdominal ARZ LOS, Abdominal FLA LOS N/A Digital Radiography Impressions 11/10/2024 12:04 PM LAY OUT FORMER Enteric tube and stylette projected over the distal stomach, which is at least moderately distended. TAVR. Leadless pacemaker. Embolization coils in the left upper quadrant. Narrative 11/10/2024 12:04 PM LAY OUT FORMER EXAM: DX ABDOMEN PORTABLE ANTERIOR POSTERIOR 1 [...] * Prothrombin Time (PT) (11/10/2024 8:27 AM LAY OUT FORMER) Prothrombin Time, P 11.4 9.4 - 12.5 sec 11/10/2024 8:49 AM LAY OUT FORMER [facility] INR 1.0 0.9 - 1.1 11/10/2024 8:49 AM LAY OUT FORMER [facility] Comment: ----ADDITIONAL INFORMATION---- Standard intensity warfarin therapeutic range: 2.0 to 3.0 High intensity warfarin therapeutic range: 2.5 to 3.5 Blood (Blood, Venous) 11/10/2024 8:27 AM LAY OUT FORMER 11/10/2024 8:43 AM LAY OUT FORMER us Mirlande Darling APRN C.N.P., D.N.P. LAB BLOOD ADD -ON Final Result [facility] [address] [place] [address], [facility] [address] [place] [address] * (ABNORMAL) Lipid Panel (10/20/2024 7:04 AM LAY OUT FORMER) Triglycerides 186(H) mg/dL 10/20/2024 8:02 AM LAY OUT FORMER DTL Comment: ----REFERENCE VALUE---- Normal: <150 mg/dL Borderline High: 150-199 mg/dL High: 200-499 mg/dL Very High: > or =500 mg/dL Cholesterol, Total 148 mg/dL 2023 7:55 AM LAY OUT FORMER DTL Comment: ----REFERENCE VALUE---- Desirable: < 200 mg/dL Borderline High: 200 - 239 mg/dL High: > or = 240 mg/dL Cholesterol, LDL, Calculated 77 mg/dL 10/20/2024 8:02 AM LAY OUT FORMER DTL Comment: ----REFERENCE VALUE---- Desirable: <100 mg/dL Above Desirable: 100-129 mg/dL Borderline High: 130-159 mg/dL High: 160-189 mg/dL Very High: >=190 mg/dL ----ADDITIONAL INFORMATION---- LDL cholesterol calculated using the Santamaria/NIH equation. Cholesterol, HDL, S 40 >=40 mg/dL 10/20/2024 8:02 AM LAY OUT FORMER DTL Cholesterol, Non-HDL, Calculated 108 mg/dL 10/20/2024 8:02 AM LAY OUT FORMER DTL Comment: ----REFERENCE VALUE---- Desirable: <130 mg/dL Above Desirable: 130-159 mg/dL Borderline High: 160-189 mg/dL High: 190-219 mg/dL Very High: > or =220 mg/dL Fasting (8 HR or more) No 10/20/2024 7:04 AM LAY OUT FORMER DTL Blood (Blood, Venous) 10/20/2024 7:04 AM LAY OUT FORMER 10/20/2024 7:28 AM LAY OUT FORMER Aide Welch P.A.-C., M.S. LAB BLOOD ADD-O N Final Result Performing Organization Address [facility] Hospital/[facility] [place] [address] * (ABNORMAL) Hemoglobin A1c (10/20/2024 7:04 AM LAY OUT FORMER) Hemoglobin A1c, B 6.8(H) 4.0 - 5.6 % 10/20/2024 8:18 AM LAY OUT FORMER DTL Comment: Hemoglobin A1c values greater than or equal to 6.5 percent are diagnostic for diabetes mellitus. Diagnosis should be confirmed by repeat testing. In diabetic patients, HbA1c goals should be discussed with healthcare provider. Blood (Blood, Venous) 10/20/2024 7:04 AM LAY OUT FORMER 10/20/2024 7:14 AM LAY OUT FORMER Aide Welch P.A.-C., M.S. LAB BLOOD ADD-O N Final Result Performing Organization Address [facility] Co de Phone Number [id number] [place] [address] * Albumin, Random, Urine (04/07/2024 2:55 PM CDT) Albumin, Random, U 47.0 mg/L 2023 9:58 AM CDT DTL Comment: ----ADDITIONAL INFORMATION---- This test has been modified from the table worker packager's instructions. Its performance characteristics were determined by [facility] in a manner consistent with CLIA [...] OR DERABLES Final Result Performing Organization Address City/[facility]/ZIP Co de Phone Number [facility] [place] [address] [place] [address], [place] [facility] [address] [place] [address] * HIV-1/-2 Ag and Ab Screen, Plasma (11/09/2023 7:56 PM LAY OUT FORMER) Pathologist [facility] HIV-1/-2 Ag and Ab Screen, P Negative Negative 11/10/2023 8:33 AM LAY OUT FORMER [facility] Comment: Negative result does not rule out HIV infection. If exposure to HIV infection occurred <14 days ago, contact the laboratory to request addition of HIV-1/HIV-2 RNA detection, Plasma (HIP12). Blood (Blood, Venous) 11/09/2023 7:56 PM LAY OUT FORMER 11/10/2023 7:45 AM LAY OUT FORMER Elaina Beltran M.D. LAB MICROBIOLOGY - BLOOD OR DERABLES Final Result Performing Organization Address [facility] Co de Phone Number [facility] [address] [place] [address] [facility] [address] [place] [address] * Hepatitis B Surface Antigen (07/17/2021 1:21 PM CDT) HBs Antigen, S Negative Negative 07/18/2021 10:45 AM CDT [facility] Blood (Blood, Peripheral Draw) 07/17/2021 1:21 PM CDT 07/18/2021 8:27 AM CDT Kathya Diaz M.D. LAB MICROBIOLOGY - BLOOD ORDERAB LES Final Result Performing Organization Address City/[facility]/ZIP Co de Phone Number [facility] [address] [place] [address] [facility] Dept. of Laboratory Medicine and Pathology [address] [place] [address] from Last 3 Months or Most Recently Relevant to Health Maintenance Additional Health Concerns Infection Onset Date Last Indicated Protective Environment 11/10/2023 Insurance [facility] Advance Directives For more information, please contact: [phone] Documents on File Type Date Recorded Patient Cleaners Expl anation Advance Directives 07/16/2023 9:52 AM [...] Communication Millicent Perry Spouse Health Care Agent [email or web address] Ronn [place] Brother First Alternate Health Care Agent Care Teams Helium Arc Welder Relationship Specialty Start Date End Date Kelly Mendez APRN, C.N.P., D.N.P. [address] [place] [phone] PCP - General Internal Medicine 12/05/23 Rhea [facility] [place] mary Little [facility] lab Laboratory Medicine 02/26/23
--- OUTSIDE RECORDS SUMMARY | 2025-02-03 | XMS_ITS | Encounter Summary ---
Author Organization [place] Address [address] [place] [address] Care Team Providers Care Supervisor Parking Lot Name Role Phone Tennille Goddard APRN QUALITY TECHNICIAN Unavailable [phone] Beatris Ty [facility] Unavailable [phone] Dov Alston [facility] Unavailable Unavailable Tennille Goddard APRN QUALITY TECHNICIAN Primary Care Provider + Dov Aslton [facility] Unavailable Unavailable Dov Alston [facility] Unavailable Unavailable Reason for Visit * Reason Onset Date Comments Appointment 09/16/2019 Encounter Details Date Type Department Care Team (Late st Contact Info) Description 09/16/2019 [facility] [address] [address] Beatris Ty, [facility] [address] [place] [address] Appointment Social History Tobacco Use [...] on file Legal Sex Male 3:09 AM THREAD MARKER Gender Identity Not on file Sexual Orientation [...] Depression Total Score: 0 01/07/20 6:53 PM THREAD MARKER documented as of this encounter Care Teams Supervisor Parking Lot Relationship Specialty Start Date End Date Tennille Goddard APRN QUALITY TECHNICIAN [address] [place] [address] PCP - General Nurse Practitioner - Family 08/18/19 Tennille Goddard APRN QUALITY TECHNICIAN [address] [facility] [place] [address] Assigned PCP 12/15/18 01/07/22 Beatris Ty [facility] [address] [place] [address] Pharmacist Pharmacist 04/08/19 01/12/21 Dov Alston [facility] [address] [place] [address] Pharmacist Pharmacist 06/16/19 [facility] [address] [place] [address] Assigned MTM Pharmacist 04/15/22 08/04/22 Dov Alston [facility] [address] [employer] [address] Assigned MTM Pharmacist 08/16/22 10/27/22 documented as of this encounter
--- OUTSIDE RECORDS SUMMARY | 2025-02-03 | XMS_ITS | Encounter Summary ---
Author Organization [place] Address [address] [place] [address] Care Team Providers Care Aws Developer Name Role Phone Tennille Goddard APRN PERSONAL INJURY ATTORNEY Unavailable [phone] Beatris Ty [facility] Unavailable [phone] Dov Alston [facility] Unavailable Unavailable Tennille Goddard APRN PERSONAL INJURY ATTORNEY Primary Care Provider + Dov Alston [facility] Unavailable Unavailable Dov Alston [facility] Unavailable Unavailable Encounter Details Date Type Department Care Team (Late st Contact Info) Description 02/04/2020 [facility] [address] [address] Dov Alston [facility] [id number] [place] [address] Social History Tobacco Use Types Packs/Day Years [...] on file Legal Sex Male 3:09 AM PRODUCT CONSULTANT Gender Identity Not on file Sexual [...] Dov Alston Rph. Medication Therapy Management Provider [phone] documented in this encounter Plan of Treatment Not on file documented as of this encounter Visit Diagnoses Not on filedocumented in this encounter Additional Health Concerns Assessment Noted Time PHQ-9 Depression Total Score: 0 01/07/20 19 6:53 PM PRODUCT CONSULTANT documented as of this encounter Care Teams Aws Developer Relationship Specialty Start Date End Date Tennille Goddard APRN PERSONAL INJURY ATTORNEY [address] [place] [address] PCP - General Nurse Practitioner - Family 08/18/19 Tennille Goddard APRN PERSONAL INJURY ATTORNEY [address] [place] [address] Assigned PCP 12/15/18 01/07/22 Beatris Ty [facility] [address] [place] [address] Pharmacist Pharmacist 04/08/19 01/12/21 [facility] [address] [place] [address] Pharmacist Pharmacist 06/16/19 [facility] [address] [place] [address] Assigned MTM Pharmacist 04/15/22 08/04/22 [facility] [address] [place] [address] Assigned MTM Pharmacist 08/16/22 10/27/22 documented as of this encounter
--- OUTSIDE RECORDS SUMMARY | 2025-02-03 | XMS_ITS | Encounter Summary ---
Author Organization [place] Address [address] [place] [address] Care Team Providers Care Supervisor Data Processing Name Role Phone Wally Daniel MD Primary Care Provider Unavailable Wally Daniel MD Unavailable Unavai lable No Ref-Primary, Physician Primary Care Provider Tennille Goddard APRN POLICE MATRON Unavailable [phone] Tennille Goddard APRN POLICE MATRON Unavailable [phone] Beatris Ty [facility] Unavailable [phone] Dov Alston RP Unavailable Unavailable Tennille Goddard APRN POLICE MATRON Primary Care Provider + Dov Alston RPH Unavailable Unavailable Dov Alston RPH Unavailable Unavailable Reason for Visit * Reason Onset Date Comments Care Team 05/24/2017 Encounter Details Date Type Department Care Team (Late st Contact Info) Description 05/24/2017 My[facility] Medical Advice [address] [address] Dov Alston [facility] [id number] [place] [address] Care Team Social History Tobacco Use Types [...] on file 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 If needed?--see how itgoes. Dov Alston [facility]. Medication Therapy Management Provider [phone] Frank Anna, Pharm-D-4. documented in this encounter Plan of Treatment Not on file documented as of this encounter Visit Diagnoses Diagnosis Other chronic pain- Primary documented in this encounter Additional Health Concerns Assessment Noted Time PHQ-9 Depression Total Score: 15 016 7:16 AM CDT documented as of this encounter Care Teams Supervisor Data Processing Relationship Specialty Start Date End Date Wally Daniel MD PCP - General 12/17/03 12/08/18 Wally Daniel MD PCP - Assigned PCP 10/16/10 12/14/18 No Ref-Primary, Physician PCP - General 12/09/18 08/17/19 Tennille Goddard APRN POLICE MATRON [address] [place] [address] PCP - Assigned PCP 12/15/18 01/21/19 Tennille Goddard APRN POLICE MATRON [address] [place] [address] PCP - General Nurse Practitioner - Family 08/18/19 Tennille Goddard APRN POLICE MATRON [address] [facility] [facility] [address] Assigned PCP 12/15/18 01/07/22 Beatris Ty [facility] [address] [place] [address] Pharmacist Pharmacist 04/08/19 01/12/21 [facility] [address] [place] [address] Pharmacist Pharmacist 06/16/19 [facility] [address] [place] [address] Assigned MTM Pharmacist 04/15/22 08/04/22 Dov Alston [facility] [address] [place] [address] Assigned MTM Pharmacist 08/16/22 10/27/22 documented as of this encounter
--- OUTSIDE RECORDS SUMMARY | 2025-02-03 | XMS_ITS | Encounter Summary ---
Author Organization [place] Address [address] [place] [address] Care Team Providers Care Senior Data Integration Developer Name Role Phone Wally Daniel MD Primary Care Provider Unavailable Wally Daniel MD Unavailable Unavai lable No Ref-Primary, Physician Primary Care Provider Tennille Goddard APRN SELF SEALING FUEL TANK BUILDER Unavailable [phone] Tennille Goddard APRN SELF SEALING FUEL TANK BUILDER Unavailable [phone] Beatris Ty [facility] Unavailable [phone] Dov Alston [facility] Unavailable Unavailable Tennille Goddard APRN SELF SEALING FUEL TANK BUILDER Primary Care Provider + Dov Alston [facility] Unavailable Unavailable Dov Alston RP Unavailable Unavailable Encounter Details Date Type Department Care Team (Late st Contact Info) Description 08/24/[address] [address] Wally Daniel MD Social History [...] on file 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 Gender Identity Not on file Sexual Orientation Not on file 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 as of this encounter Plan of Treatment Not on file documented as of this encounter Visit Diagnoses Not on filedocumented in this encounter Care Teams Senior Data Integration Developer Relationship Specialty Start Date End Date Wally Daniel MD PCP - General 12/17/03 12/08/18 Wally Daniel MD PCP - Assigned PCP 10/16/10 12/14/18 No Ref-Primary, Physician PCP - General 12/09/18 08/17/19 Tennille Goddard APRN SELF SEALING FUEL TANK BUILDER [address] [place] [address] PCP - Assigned PCP 12/15/18 01/21/19 Tennille Goddard APRN SELF SEALING FUEL TANK BUILDER [address] [place] [address] PCP - General Nurse Practitioner - Family 08/18/19 Tennille Goddard APRN SELF SEALING FUEL TANK BUILDER [address] [place] [address] Assigned PCP 12/15/18 01/07/22 Beatris Ty [facility] [address] [place] [address] Pharmacist Pharmacist 04/08/19 01/12/21 Dov Alston [facility] [address] [place] [address] Pharmacist Pharmacist 06/16/19 Dov Alston [facility] [address] [place] [address] Assigned MTM Pharmacist 04/15/22 08/04/22 Dov Alston [facility] [address] [place] [address] Assigned MTM Pharmacist 08/16/22 10/27/22 documented as of this encounter
--- OUTSIDE RECORDS SUMMARY | 2025-02-03 | XMS_ITS | Encounter Summary ---
Author Organization [place] Address [address] [place] [address]. [place] [address] Care Team Providers Care Junior Oracle Dba Name Role Phone Tennille Goddard APRN HIGH SCHOOL ADMISSIONS REPRESENTATIVE Unavailable [phone] Dov Alston [facility] Unavailable Unavailable Tennille Goddard APRN HIGH SCHOOL ADMISSIONS REPRESENTATIVE Primary Care Provider + Dov Alston [facility] Unavailable Unavailable Dov Alston [facility] Unavailable Unavailable Encounter Details Date Type Department Care Team (Late st Contact Info) Description 02/21/2021 [facility] Medical Advice [address] [place] [address] Dov Alston [facility] [address] [place] [address] Social History Tobacco Use Types Packs/Day Years [...] on file 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 Medication Therapy Management Provider [phone] * Telephone Encounter - Dov Alston RPH [...] notes much more affordable med prices in [place] --patient to let me know what he wants to try ? Dov Alston Rph. Medication Therapy Management Provider [phone] documented in this encounter Plan of Treatment Not on file documented as of this encounter Visit Diagnoses Not on filedocumented in this encounter Additional Health Concerns Assessment Noted Time PHQ-9 Depression Total Score: 0 01/07/20 19 6:53 PM STRATEGIC PROCUREMENT MANAGER documented as of this encounter Care Teams Junior Oracle Dba Relationship Specialty Start Date End Date Tennille Goddard APRN HIGH SCHOOL ADMISSIONS REPRESENTATIVE [address] [place] [address] PCP - General Nurse Practitioner - Family 08/18/19 Tennille Goddard APRN HIGH SCHOOL ADMISSIONS REPRESENTATIVE [address] [place] [address] Assigned PCP 12/15/18 01/07/22 Dov Alston RPH [address] [facility] [place], [place] [address] Pharmacist Pharmacist 06/16/19 Dov Alston RPH [address] [address] [place], [place] [address] Assigned [place] Pharmacist 04/15/22 08/04/22 Dov Alston RPH [address] [address] [place] [address] Assigned [place] Pharmacist 08/16/22 10/27/22 documented as of this encounter
--- OUTSIDE RECORDS SUMMARY | 2025-02-03 | XMS_ITS | Encounter Summary ---
Author Organization [place] Address [address] [place] [address]. [place] [address] Care Team Providers Care Barber Name Role Phone Tennille Goddard APRN KENO ATTENDANT Unavailable [phone] Dov Alston [facility] Unavailable Unavailable Tennille Goddard APRN KENO ATTENDANT Primary Care Provider + Dov Alston [facility] Unavailable Unavailable Dov Alston [facility] Unavailable Unavailable Encounter Details Date Type Department Care Team (Late st Contact Info) Description 03/28/2021 [facility] Medical Advice [facility] [address] [place] [address] Tennille Goddard APRN [facility] [id number] [place] [address] Social History Tobacco Use Types Packs/Day [...] on file 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 Gender Identity Not on file Sexual [...] Depression Total Score: 0 01/07/20 6:53 PM PRODUCTION MACHINE SHOP SUPERVISOR documented as of this encounter Care Teams Barber Relationship Specialty Start Date End Date Tennille Goddard APRN KENO ATTENDANT [address] [place] [address] PCP - General Nurse Practitioner - Family 08/18/19 Tennille Goddard APRN KENO ATTENDANT [address] [place] [address] Assigned PCP 12/15/18 01/07/22 Dov Alston [facility] [address] [address] Pharmacist Pharmacist 06/16/19 Dov Alston [facility] [address] [place] [address] Assigned MTM Pharmacist 04/15/22 08/04/22 Dov Alston [facility] [address] [place] [address] Assigned MTM Pharmacist 08/16/22 10/27/22 documented as of this encounter
--- OUTSIDE RECORDS SUMMARY | 2025-02-03 | XMS_ITS | Encounter Summary ---
Author Organization [place] Address [address] [place] [address] Care Team Providers Care Antiquer Name Role Phone No Ref-Primary, Physician Primary Care Provider Tennille Goddard APRN APPRENTICE PAINTER BRUSH Unavailable [phone] Beatris Ty [facility] Unavailable [phone] Dov Alston [facility] Unavailable Unavailable Tennille Goddard APRN APPRENTICE PAINTER BRUSH Primary Care Provider + Dov Alston [facility] Unavailable Unavailable Dov Alston [facility] Unavailable Unavailable Encounter Details Date Type Department Care Team (Late st Contact Info) Description 02/20/2019 [facility] Medical Advice [address], [address] [place] [address] Antonia Dai, [facility] Social History Tobacco Use Types Packs/Day [...] on file 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 Gender Identity Not on file Sexual Orientation [...] Total Score: 0 01/07/20 19 6:53 PM PROCESS DESIGNER documented as of this encounter Care Teams Antiquer Relationship Specialty Start Date End Date No Ref-Primary, Physician PCP - General 12/09/18 08/17/19 Tennille Goddard APRN APPRENTICE PAINTER BRUSH [address] [place] [address] PCP - General Nurse Practitioner - Family 08/18/19 Tennille Goddard APRN APPRENTICE PAINTER BRUSH [address] [facility] [place] [address] Assigned PCP 12/15/18 01/07/22 Beatris Ty [facility] [address] [place] [address] Pharmacist Pharmacist 04/08/19 01/12/21 Dov Alston [facility] [address] [place] [address] Pharmacist Pharmacist 06/16/19 Dov Alston [facility] [address] [place] [address] Assigned MTM Pharmacist 04/15/22 08/04/22 Dov Alston [facility] [address] [place] [address] Assigned MTM Pharmacist 08/16/22 10/27/22 documented as of this encounter
--- OUTSIDE RECORDS SUMMARY | 2025-02-03 | XMS_ITS | Encounter Summary ---
Author Organization [place] Address [address] [place] [address]. [place] [address] Care Team Providers Care Scientific Laboratory Supervisor Name Role Phone Tennille Goddard APRN HOSPITAL INSURANCE CLERK Unavailable [phone] Dov Alston [facility] Unavailable Unavailable Tennille Goddard APRN HOSPITAL INSURANCE CLERK Primary Care Provider + Dov Alston [facility] Unavailable Unavailable Dov Alston [facility] Unavailable Unavailable Encounter Details Date Type Department Care Team (Late st Contact Info) Description 02/03/2021 [facility] Medical Advice [address] [place] [address] Dov Alston, [facility] [address] [place] [address] Restless legs syndrome (RLS) (Primary Dx); Type [...] on file 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 No / Unsure 01/05/2021 10:48 AM ORE ROASTER documented as of this encounter Miscellaneous Notes * Telephone Encounter - Dov Alston RPH - 02/04/2021 5:28 PM CDT 02-04-21 First good nights sleep this month. [employer] does not sell those test scripts, let's try [employer]. mtm notes good sleep--will send test strips to [facility]. Dov Alston Rph. Medication Therapy Management Provider [phone] * Telephone Encounter - Dov Alston RPH - 02/03/2021 11:02 AM CDT Greeting from [facility], ?? I have had restless legs again every night this month??? Could we try that drug we used about 5 years ago? If yes lets send this to [facility] in [place], the one at [address] ?? Also I will [...] Dov Alston Rph. Medication Therapy Management Provider [phone] documented in this encounter Plan of Treatment Not on file documented as of this encounter Visit Diagnoses Diagnosis Restless legs syndrome (RLS)- Primary Type 2 diabetes mellitus with stage 1 chronic kidney disease, without long-term current use of insulin (H) documented in this encounter Additional Health Concerns Assessment Noted Time PHQ-9 Depression Total Score: 0 01/07/20 6:53 PM ORE ROASTER documented as of this encounter Care Teams Scientific Laboratory Supervisor Relationship Specialty Start Date End Date Tennille Goddard APRN HOSPITAL INSURANCE CLERK [address] [place] [address] PCP - General Nurse Practitioner - Family 08/18/19 Tennille Goddard APRN HOSPITAL INSURANCE CLERK [address] [facility] [address] Assigned PCP 12/15/18 01/07/22 Dov Alston [facility] [address] [place] [address] Pharmacist Pharmacist 06/16/19 Dov Alston [facility] [address] [place] [address] Assigned MTM Pharmacist 04/15/22 08/04/22 Dov Alston [facility] [address] [place] [address] Assigned MTM Pharmacist 08/16/22 10/27/22 documented as of this encounter
--- OUTSIDE RECORDS SUMMARY | 2025-02-03 | XMS_ITS | Encounter Summary ---
Author Organization [facility] Address [address] [place] [address] Care Team Providers Care Energy Analyst Name Role Phone Wally Daniel MD Primary Care Provider Unavailable Wally Daniel MD Unavailable Unavai lable No Ref-Primary, Physician Primary Care Provider Tennille Goddard APRN FASHION MERCHANDISER Unavailable [phone] Tennille Goddard APRN FASHION MERCHANDISER Unavailable [phone] Beatris Ty [facility] Unavailable [phone] Dov Alston [facility] Unavailable Unavailable Tennille Goddard APRN FASHION MERCHANDISER Primary Care Provider + Dov Alston [facility] Unavailable Unavailable Dov Alston [facility] Unavailable Unavailable Encounter Details Date Type Department Care Team (Late st Contact Info) Description 05/29/2017 [facility] Medical Advice [address] [address] Dov Alston [facility] [id number] [place] [address] Social History Tobacco Use Types Packs/Day Years [...] on file 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 Gender Identity Not on file Sexual [...] as of this encounter Care Teams Energy Analyst Relationship Specialty Start Date End Date Wally Daniel MD PCP - General 12/17/03 12/08/18 Wally Daniel MD PCP - Assigned PCP 10/16/10 12/14/18 No Ref-Primary, Physician PCP - General 12/09/18 08/17/19 Tennille Goddard APRN FASHION MERCHANDISER [address] [place] [address] PCP - Assigned PCP 12/15/18 01/21/19 Tennille Goddard APRN FASHION MERCHANDISER [address] [place] [address] PCP - General Nurse Practitioner - Family 08/18/19 Tennille Goddard APRN FASHION MERCHANDISER [address] [place] [address] Assigned PCP 12/15/18 01/07/22 Beatris Ty [facility] [address] [place] [address] Pharmacist Pharmacist 04/08/19 01/12/21 Dov Alston [facility] [address] [place] [address] Pharmacist Pharmacist 06/16/19 Dov Alston [facility] [address] [place] [address] Assigned MTM Pharmacist 04/15/22 08/04/22 Dov Alston RPH [address] [place] [address] Assigned [place] Pharmacist 08/16/22 10/27/22 documented as of this encounter
--- OUTSIDE RECORDS SUMMARY | 2025-02-03 00:01 | XMS_ITS | Encounter Summary ---
Author Organization [facility] Address [address] [place] [address]. [place] [address] Care Team Providers Care Broaching Machine Set Up Operator Name Role Phone Tennille Goddard APRN BEAD SUPERVISOR Unavailable [phone] Dov Alston [facility] Unavailable Unavailable Tennille Goddard APRN BEAD SUPERVISOR Primary Care Provider + Dov Alston [facility] Unavailable Unavailable Dov Alston [facility] Unavailable Unavailable Encounter Details Date Type Department Care Team (Late st Contact Info) Description 04/22/2021 [facility] [place] [facility] Adv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 Gender Identity Not on file Sexual Orientation [...] Total Score: 0 01/07/20 19 6:53 PM DATA PROCESSING EQUIPMENT REPAIRER documented as of this encounter Care Teams Broaching Machine Set Up Operator Relationship Specialty Start Date End Date Tennille Goddard APRN BEAD SUPERVISOR [address] [place] [address] PCP - General Nurse Practitioner - Family 08/18/19 Tennille Goddard APRN BEAD SUPERVISOR [address] [place] [address] Assigned PCP 12/15/18 01/07/22 Dov Alston [facility] [address] [place] [address] Pharmacist Pharmacist 06/16/19 Dov Alston [facility] [address] [place] [address] Assigned MTM Pharmacist 04/15/22 08/04/22 Dov Alston [facility] [address] [place] [address] Assigned MTM Pharmacist 08/16/22 10/27/22 documented as of this encounter
--- OUTSIDE RECORDS SUMMARY | 2025-02-03 00:01 | XMS_ITS | Encounter Summary ---
Author Organization [facility] Address [address] [place] [address] Care Team Providers Care Early Childhood Aide Classroom Name Role Phone Tennille Goddard APRN ORACLE DATABASE ARCHITECT Unavailable [phone] Beatris Ty [facility] Unavailable [phone] Dov Alston [facility] Unavailable Unavailable Tennille Goddard APRN ORACLE DATABASE ARCHITECT Primary Care Provider + Dov Alston [facility] Unavailable Unavailable Dov Alston [facility] Unavailable Unavailable Encounter Details Date Type Department Care Team (Late st Contact Info) Description 01/06/2021 [facility] [place] Medical Advice [address] [place] [address] Dov Alston [facility] [address] [place] [address] Social History Tobacco Use Types Packs/Day Years [...] on file 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 No / Unsure 01/05/2021 10:48 AM SPIRAL WINDING MACHINE HELPER documented as of this encounter Miscellaneous Notes * Telephone Encounter - Dov Alston RP - 01/06/2021 11:40 AM CST I'm surprised the number were that good. I have not taken any medication or taken care of myself for 3 months. We will have to do our visit via video since I will be back in [place]. Things have been crazy. I'm an experiment. ?? Check out this link. [email or web address]://[email or web address]/story//covid-19/ugpeicv-quhq-cbm-hours-ap axa-zd-rfufu-fight/4578.html [facility] notes --explains why numbers so high --no meds x 3 months . Will restart meds on 01-17-21 when we have a video visit f/up. [facility] notes his parents both on the same day in November --he is grieving. Dov Alston [facility]. Medication Therapy Management Provider [phone] AL WINDING MACHINE HELPER documented in this encounter Plan of Treatment Not on file documented as of this encounter Visit Diagnoses Not on filedocumented in this encounter Additional Health Concerns Assessment Noted Time PHQ-9 Depression Total Score: 0 01/07/20 19 6:53 PM SPIRAL WINDING MACHINE HELPER documented as of this encounter Care Teams Early Childhood Aide Classroom Relationship Specialty Start Date End Date Tennille Goddard APRN ORACLE DATABASE ARCHITECT [address] [place] [address] PCP - General Nurse Practitioner - Family 08/18/19 Tennille Goddard APRN ORACLE DATABASE ARCHITECT [address] [place] [address] Assigned PCP 12/15/18 01/07/22 Beatris Ty [facility] [address] [place] [address] Pharmacist Pharmacist 04/08/19 01/12/21 Dov Alston RPH [address] [place] [address] Pharmacist Pharmacist 06/16/19 [place] [address] [place] [address] Assigned MTM Pharmacist 04/15/22 08/04/22 Dov Alston [facility] [address] [place] [address] Assigned [place] Pharmacist 08/16/22 10/27/22 documented as of this encounter
--- OUTSIDE RECORDS SUMMARY | 2025-02-03 00:01 | XMS_ITS | Encounter Summary ---
Author Organization [facility] Address [address] [place] [address]. [place] [address] Care Team Providers Care Fire And Safety Helper Name Role Phone Tennille Goddard APRN WATCH AND CLOCK MAKER AND REPAIRER Unavailable [phone] Dov Alston [facility] Unavailable Unavailable Tennille Goddard APRN WATCH AND CLOCK MAKER AND REPAIRER Primary Care Provider + Dov Alston [facility] Unavailable Unavailable Dov Alston [facility] Unavailable Unavailable Reason for Visit * Reason Comments Medication Refill Encounter Details Date Type Department Care Team (Late st Contact Info) Description 05/11/2021 Refill [facility] [address] [place] [address] Tennille Goddard APRN WATCH AND CLOCK MAKER AND REPAIRER [address] [place] [address] Medication Refill Social History Tobacco [...] file Legal Sex Male 3: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 protocol. Mahogany Zurita RN on 05/12/2021 at 8:55 AM documented in this encounter Plan of Treatment Not on file documented as of this encounter Visit Diagnoses Diagnosis Hyperlipidemia LDL goal <100 Other and unspecified hyperlipidemia documented in this encounter Additional Health Concerns Assessment Noted Time PHQ-9 Depression Total Score: 0 01/07/20 6:53 PM SENIOR ADMINISTRATIVE ASSOCIATE documented as of this encounter Care Teams Fire And Safety Helper Relationship Specialty Start Date End Date Tennille Goddard APRN WATCH AND CLOCK MAKER AND REPAIRER [address] [place] [address] PCP - General Nurse Practitioner - Family 08/18/19 Tennille Goddard APRN WATCH AND CLOCK MAKER AND REPAIRER [address] [place] [address] Assigned PCP 12/15/18 01/07/22 Dov Alston [facility] [address] [place] [address] Pharmacist Pharmacist 06/16/19 Dov Alston [facility] [address] [place] [address] Assigned MTM Pharmacist 04/15/22 08/04/22 Dov Alston [facility] [address] [place] [address] Assigned MTM Pharmacist 08/16/22 10/27/22 documented as of this encounter
--- OUTSIDE RECORDS SUMMARY | 2025-02-03 00:01 | XMS_ITS | Encounter Summary ---
Author Organization [facility] Address [address] [place] [address] Care Team Providers Care Hospital Coordinator Name Role Phone Tennille Goddard APRN SECURITY SYSTEM ENGINEER Unavailable [phone] Dov Alston [facility] Unavailable Unavailable Tennille Goddard APRN, CNP Primary Care Provider + Dov Alston [facility] Unavailable Unavailable Dov Alston [facility] Unavailable Unavailable Encounter Details Date Type Department Care Team (Late st Contact Info) Description 07/04/2021 [facility] Medical Advice [address] [address] Irene Lara Social History Tobacco [...] file Legal Sex Male 3:09 AM SENIOR ERP CONSULTANT Gender Identity Not on file Sexual [...] Total Score: 0 01/07/20 19 6:53 PM SENIOR ERP CONSULTANT documented as of this encounter Care Teams Hospital Coordinator Relationship Specialty Start Date End Date Tennille Goddard APRN CNP [address] [place] [address] PCP - General Nurse Practitioner - Family 08/18/19 Tennille Goddard APRN SECURITY SYSTEM ENGINEER [address] [place] [address] Assigned PCP 12/15/18 01/07/22 Dov Alston [facility] [address] [place] [address] Pharmacist Pharmacist 06/16/19 Dov Alston [facility] [address] [place] [address] Assigned MTM Pharmacist 04/15/22 08/04/22 Dov Alston [facility] [address] [place] [address] Assigned MTM Pharmacist 08/16/22 10/27/22 documented as of this encounter
--- OUTSIDE RECORDS SUMMARY | 2025-02-03 00:01 | XMS_ITS | Encounter Summary ---
Author Organization [facility] Address [address] [place] [address]. [place] [address] Care Team Providers Care Citrix Systems Administrator Name Role Phone Tennille Goddard APRN DEVELOPER ADVOCATE Unavailable [phone] Dov Alston [facility] Unavailable Unavailable Tennille Goddard APRN DEVELOPER ADVOCATE Primary Care Provider + Dov Alston [facility] Unavailable Unavailable Dov Alston [facility] Unavailable Unavailable Encounter Details Date Type Department Care Team (Late st Contact Info) Description 01/17/2021 [facility] [address] [place] [address] Dov Alston, [facility] [address] [place] [address] Social History Tobacco Use Types Packs/Day Years [...] on file Legal Sex Male 3:09 AM DIRECTOR OF ASSESSMENT Gender Identity Not on file Sexual Orientation Not on file 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 No / Unsure 01/05/2021 10:48 AM DIRECTOR OF ASSESSMENT documented as of this encounter Plan of Treatment Not on file documented as of this encounter Visit Diagnoses Not on filedocumented in this encounter Additional Health Concerns Assessment Noted Time PHQ-9 Depression Total Score: 0 01/07/20 6:53 PM DIRECTOR OF ASSESSMENT documented as of this encounter Care Teams Citrix Systems Administrator Relationship Specialty Start Date End Date Tennille Goddard APRN DEVELOPER ADVOCATE [address] [place] [address] PCP - General Nurse Practitioner - Family 08/18/19 Tennille Goddard APRN DEVELOPER ADVOCATE [address] [place] [address] Assigned PCP 12/15/18 01/07/22 Dov Alston [facility] [address] [place] [address] Pharmacist Pharmacist 06/16/19 Dov Alston [facility] [address] [place] [address] Assigned MTM Pharmacist 04/15/22 08/04/22 Dov Alston [facility] [address] [place] [address] Assigned MTM Pharmacist 08/16/22 10/27/22 documented as of this encounter
--- OUTSIDE RECORDS SUMMARY | 2025-02-03 00:01 | XMS_ITS | Encounter Summary ---
Author Organization [facility] Address [address] [place] [address]. [place] [address] Care Team Providers Care Plastic Injection Mold Maker Name Role Phone Tennille Goddard APRN IDENTIFICATION OFFICER Unavailable [phone] Dov Alston [facility] Unavailable Unavailable Tennille Goddard APRN IDENTIFICATION OFFICER Primary Care Provider + Dov Alston [facility] Unavailable Unavailable Dov Alston [facility] Unavailable Unavailable Encounter Details Date Type Department Care Team (Late st Contact Info) Description 06/27/2021 [facility] [place] [address] [place] [address] Dov Alston [facility] [address] [place] [address] Type 2 diabetes mellitus with stage 1 [...] file 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 Medication Therapy Management Provider [phone] ?? Beatris Fuller Logistics Vice President [facility] [address] [place] [address] [email or web address] Office: [phone] Gender Pronouns: she/her from ?? I see [...] Score: 0 01/07/20 19 6:53 PM MACHINE OILER documented as of this encounter Care Teams Plastic Injection Mold Maker Relationship Specialty Start Date End Date Tennille Goddard APRN IDENTIFICATION OFFICER [address] [place] [address] PCP - General Nurse Practitioner - Family 08/18/19 Tennille Goddard APRN IDENTIFICATION OFFICER [address] [place] [address] Assigned PCP 12/15/18 01/07/22 [place] [address] [place] [address] Pharmacist Pharmacist 06/16/19 Dov Alston [facility] [address] [place] [address] Assigned MTM Pharmacist 04/15/22 08/04/22 Dov Alston [facility] [address] [place] [address] Assigned MTM Pharmacist 08/16/22 10/27/22 documented as of this encounter
--- OUTSIDE RECORDS SUMMARY | 2025-02-03 00:01 | XMS_ITS | Encounter Summary ---
Author Organization [facility] Address [address] [place] [address] Care Team Providers Care Pump Assembler Name Role Phone Tennille Goddard APRN BULLET SWAGING MACHINE OPERATOR Unavailable [phone] Dov Alston [facility] Unavailable Unavailable Tennille Goddard APRN BULLET SWAGING MACHINE OPERATOR Primary Care Provider + Dov Alston [facility] Unavailable Unavailable Dov Alston [facility] Unavailable Unavailable Reason for Visit * Reason Comments Medication Refill Encounter Details Date Type Department Care Team (Late st Contact Info) Description 02/03/[address] [place] [address] Tennille Goddard APRN BULLET SWAGING MACHINE OPERATOR [address] [place] [address] Medication Refill Social History Tobacco [...] on file Legal Sex Male 3:09 AM FAMILY LAW SPECIALIST Gender Identity Not on file Sexual Orientation Not on file 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 No / Unsure 01/05/2021 10:48 AM FAMILY LAW SPECIALIST documented as of this encounter Miscellaneous Notes [...] Tennille Goddard CNP * Telephone Encounter - Carli Herman RN - 02/03/2021 2:45 PM CDT [...] Total Score: 0 01/07/20 19 6:53 PM FAMILY LAW SPECIALIST documented as of this encounter Care Teams Pump Assembler Relationship Specialty Start Date End Date Tennille Goddard APRN CNP [address] [place] [address] PCP - General Nurse Practitioner - Family 08/18/19 Tennille Goddard APRN [facility] [address] [place] [address] Assigned PCP 12/15/18 01/07/22 [place] [address] [facility] [place] [address] Pharmacist Pharmacist 06/16/19 Dov Alston [facility] [address] [place] [place] [address] Assigned MTM Pharmacist 04/15/22 08/04/22 Dov Alston [facility] [address] [place] [address] Assigned MTM Pharmacist 08/16/22 10/27/22 documented as of this encounter
--- OUTSIDE RECORDS SUMMARY | 2025-02-03 00:01 | XMS_ITS | Encounter Summary ---
Author Organization [facility] Address [address] [place] [address]. [place] [address] Care Team Providers Care Wireless Manager Name Role Phone Tennille Goddard APRN OPTOMECHANICAL TECHNICIAN Unavailable [phone] Dov Alston [facility] Unavailable Unavailable Tennille Goddard APRN OPTOMECHANICAL TECHNICIAN Primary Care Provider + Dov Alston [facility] Unavailable Unavailable Dov Alston [facility] Unavailable Unavailable Encounter Details Date Type Department Care Team (Late st Contact Info) Description 06/03/2021 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 Gender Identity Not on file Sexual [...] Total Score: 0 01/07/20 19 6:53 PM CLOTHESPIN DRIER OPERATOR documented as of this encounter Care Teams Wireless Manager Relationship Specialty Start Date End Date Tennille Goddard APRN OPTOMECHANICAL TECHNICIAN [address] [place] [address] PCP - General Nurse Practitioner - Family 08/18/19 Tennille Goddard APRN OPTOMECHANICAL TECHNICIAN [address] [place] [address] Assigned PCP 12/15/18 01/07/22 Dov Alston [facility] [address] [place] [address] Pharmacist Pharmacist 06/16/19 Dov Alston [facility] [address] [place] [address] Assigned MTM Pharmacist 04/15/22 08/04/22 Dov Alston [facility] [address] [place] [address] Assigned MTM Pharmacist 08/16/22 10/27/22 documented as of this encounter
--- OUTSIDE RECORDS SUMMARY | 2025-02-03 00:01 | XMS_ITS | Encounter Summary ---
Author Organization [facility] Address [address] [place] [address] Care Team Providers Care Speech Correction Consultant Name Role Phone Wally Daniel MD Primary Care Provider Unavailable Wally Daniel MD Unavailable Unavai lable No Ref-Primary, Physician Primary Care Provider Tennille Goddard APRN TEAM COORDINATOR Unavailable [phone] Tennille Goddard APRN TEAM COORDINATOR Unavailable [phone] Beatris Ty [facility] Unavailable [phone] Dov Alston [facility] Unavailable Unavailable Tennille Goddard APRN TEAM COORDINATOR Primary Care Provider + Dov Alston [facility] Unavailable Unavailable Dov Alston [facility] Unavailable Unavailable Encounter Details Date Type Department Care Team (Late st Contact Info) Description 09/07/2013 [facility] Medical Advice [address] [address] Dov Alston [facility] [address] [place] [address] Social History Tobacco Use Types Packs/Day Years [...] on file Legal Sex Male 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 Gender Identity Not on file Sexual Orientation Not on file 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 as of this encounter Plan of Treatment Not on file documented as of this encounter Visit Diagnoses Not on filedocumented in this encounter Care Teams Speech Correction Consultant Relationship Specialty Start Date End Date Wally Daniel MD PCP - General 12/17/03 12/08/18 Wally Daniel MD PCP - Assigned PCP 10/16/10 12/14/18 No Ref-Primary, Physician PCP - General 12/09/18 08/17/19 Tennille Goddard APRN TEAM COORDINATOR [address] [facility] [facility] [address] PCP - Assigned PCP 12/15/18 01/21/19 Tennille Goddard APRN TEAM COORDINATOR [address] [place], [place] [address] PCP - General Nurse Practitioner - Family 08/18/19 Tennille Goddard APRN TEAM COORDINATOR [address] [facility] [facility] [place] [id number] Assigned PCP 12/15/18 01/07/22 Beatris Ty [facility] [address] [place] [address] Pharmacist Pharmacist 04/08/19 01/12/21 Dov Alston [facility] [address] [place] [address] Pharmacist Pharmacist 06/16/19 Dov Alston [facility] [address] [place] [address] Assigned MTM Pharmacist 04/15/22 08/04/22 Dov Aslton [facility] [address] [place] [place] [address] Assigned MTM Pharmacist 08/16/22 10/27/22 documented as of this encounter
--- OUTSIDE RECORDS SUMMARY | 2025-02-03 00:02 | XMS_ITS | Encounter Summary ---
Author Organization [facility] Address [address] [place] [address] Care Team Providers Care Carbon Sequestration Plant Operator Name Role Phone Tennille Goddard APRN HOP TRAINER Unavailable [phone] Dov Alston [facility] Unavailable Unavailable Tennille Goddard APRN HOP TRAINER Primary Care Provider + Dov Alston RP Unavailable Unavailable Dov Alston [facility] Unavailable Unavailable Reason for Visit * Reason Comments Medication Refill Encounter Details Date Type Department Care Team (Late st Contact Info) Description 06/27/[address] [address] Wally Daniel MD Medication Refill [...] on file Legal Sex Male 3:09 AM 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 Can also get OTC. Tennille Goddard CNP * Telephone Encounter - uSnni Chow RN - 06/30/2021 10:29 AM CDT [...] Total Score: 0 01/07/20 19 6:53 PM BUFFET SERVER documented as of this encounter Care Teams Carbon Sequestration Plant Operator Relationship Specialty Start Date End Date Tennille Goddard APRN CNP [address] [place] [address] PCP - General Nurse Practitioner - Family 08/18/19 Tennille Goddard APRN CNP [address] [place] [address] Assigned PCP 12/15/18 01/07/22 Dov Alston [facility] [address] [place] [address] Pharmacist Pharmacist 06/16/19 Dov Alston [facility] [address] [place] [address] Assigned MTM Pharmacist 04/15/22 08/04/22 Dov Alston [facility] [address] [place] [address] Assigned MTM Pharmacist 08/16/22 10/27/22 documented as of this encounter
--- OUTSIDE RECORDS SUMMARY | 2025-02-03 00:02 | XMS_ITS | Encounter Summary ---
Author Organization [facility] Address [address] [place] [address]. [place] [address] Care Team Providers Care Business Analytics Manager Name Role Phone Tennille Goddard APRN INSTRUMENT/CONTROL TECHNICIAN Unavailable [phone] Dov Alston [facility] Unavailable Unavailable Tennille Goddard APRN INSTRUMENT/CONTROL TECHNICIAN Primary Care Provider + Dov Alston [facility] Unavailable Unavailable Dvo Alston [facility] Unavailable Unavailable Encounter Details Date Type Department Care Team (Late st Contact Info) Description 07/11/2021 [facility] [place] [address] [place] [address] Dov Alston [facility] [address] [place] [address] Social History Tobacco Use Types Packs/Day Years [...] on file 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 See Attached. [facility] graph trend is fasting am 260 3 weeks ago --now 110-150 fasting in am. Will continue with glip 5mg. Bid for now. Dov Alston Rph. Medication Therapy Management Provider [phone] documented in this encounter Plan of Treatment Not on file documented as of this encounter Visit Diagnoses Not on filedocumented in this encounter Additional Health Concerns Assessment Noted Time PHQ-9 Depression Total Score: 0 01/07/20 19 6:53 PM FORKLIFT MATERIAL HANDLER documented as of this encounter Care Teams Business Analytics Manager Relationship Specialty Start Date End Date Tennille Goddard APRN INSTRUMENT/CONTROL TECHNICIAN [address] [place] [address] PCP - General Nurse Practitioner - Family 08/18/19 Tennille Goddard APRN INSTRUMENT/CONTROL TECHNICIAN [address] [place] [address] Assigned PCP 12/15/18 01/07/22 Dov Alston [facility] [address] [place] [address] Pharmacist Pharmacist 06/16/19 Dov Alston [facility] [address] [place] [address] Assigned MTM Pharmacist 04/15/22 08/04/22 Dov Alston [facility] [address] [place] [address] Assigned MTM Pharmacist 08/16/22 10/27/22 documented as of this encounter
--- OUTSIDE RECORDS SUMMARY | 2025-02-03 00:02 | XMS_ITS | Encounter Summary ---
Author Organization [facility] Address [address] [place] [address] Care Team Providers Care Vacuum Cleaner Operator Name Role Phone Kelly Mendez APRN C.N.P., D.N.P. 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 [address] [place] [address] Phone: tel: fax: [facility] Region Referral ID Status Reason Start Date Expiration Date V isits Requested Visits Authorized [id number] Authorized 12/08/2024 03/10/2026 10 10 Encounter Details Date Type Department Care Team (Latest Contact Info) Description 01/22/2025 12:25 PM LEAD APPLIER - 01/22/2025 4:49 PM LEAD APPLIER Hospital Encounter Department of Radiation Oncology in [place], [place] [address] [place] [address] Kiana Oliver M.D. 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 Patient declined 02/04/2023 Do you [...] 6 11/23/2024 [facility] - Occupational Stress Questionnaire Answer [...] AM CDT Legal Sex Male 9:11 PM LEAD APPLIER Gender Identity na 09/07/2021 10:32 AM CDT Sexual Orientation Choose not to disclose 2020 10:32 AM CDT documented as of this encounter Last Filed Vital Signs Vital Sign Reading Time Taken Comments Blood Pressure 95/67 01/22/2025 1:04 PM LEAD APPLIER Pulse 105 01/22/2025 1:04 PM LEAD APPLIER Temperature 36.9 C (98.5 F) 01/22/2025 1:04 PM LEAD APPLIER Respiratory Rate - - Oxygen Saturation - [...] diabetes control. 1 each 12/12/2023 11:05 AM LEAD APPLIER 12/11/2023 calcium citrate-vitamin D3 (Citracal + D3) 315 mg-5 mcg (200 Unit) per tablet Take 1 tablet by mouth 2 (two) times a day with meals. 200 tablet 3 10/20/2024 10/20/20 25 famotidine (Pepcid) 20 mg tablet Take 1 tablet (20 mg total) by mouth 2 (two) times a day as needed for heartburn. 60 tablet 1 11/14/2024 12:18 PM LEAD APPLIER 11/14/2024 fluoride, sodium, (PreviDent) 1.1 % gel [...] daily. 90 tablet 3 10/29/2024 11:46 AM LEAD APPLIER 06/05/2024 gabapentin (NEURONTIN) 300 mg capsule Take 2 capsules (600 mg total) by mouth at bedtime. 04/07/2024 HYDROcodone-acetami nophen (Vidalia) 7.5-325 mg per tabletIndications:C hronic Pain/Nonacute Pain [...] 911. 15 mL 2 11/14/2024 12:18 PM LEAD APPLIER 11/14/2024 ondansetron ODT (Zofran-ODT) 4 mg disintegrating tablet Dissolve 1 tablet (4 mg total) in the mouth every 8 (eight) hours as needed for nausea or vomiting. 30 tablet 3 11/26/2024 3:29 PM LEAD APPLIER 06/05/2024 pen needle, diabetic (BD Ultra-Fine Short Pen Needle) 31 gauge x 5/16 needle Use 3 times a day 300 each 1 11/14/2024 12:18 PM LEAD APPLIER 11/14/2024 rOPINIRole (Requip) 0.25 mg tabletIndications:R estless Leg Syndrome Take 2 tablets (0.5 mg total) by mouth at bedtime as needed (RLS). 30 tablet 11/26/2024 3:29 PM LEAD APPLIER 11/13/2024 rosuvastatin (Crestor) 5 mg tablet Take 1 tablet (5 mg total) by mouth daily. 90 tablet 3 12/29/2024 1:25 PM LEAD APPLIER 06/05/2024 sennosides-docusate sodium (Stool Softener-Stimulant Laxat) 8.6-50 mg per tabletIndications:T ransplant Liver (HCC),Medication Therapy [facility] Not Anticoagulant,Drug Induced Constipation Take 1 tablet by mouth 2 (two) times a day. 100 tablet 02/22/2024 5:09 PM CDT 02/22/2024 tacrolimus (Prograf) 1 mg capsuleIndications: Transplant Liver (HCC),Medication Therapy Enlisted Advisor Not Anticoagulant Take 2 capsules (2 mg total) by mouth 2 (two) times a day. 01/01 dose change 360 capsule 3 01/01/2025 01/01/20 26 blood-glucose sensor (FreeStyle Apryl 3 Sensor) deviceIndications:D iabetes Mellitus Type 2 Hyperglycemia (HCC) 1 each every 14 (fourteen) days. 6 each 3 11/26/2024 3:29 PM LEAD APPLIER 09/04/2024 01/29/20 25 insulin glargine 100 unit/mL [...] (cGy) First Treatment Last Treatment Elapsed Days [id number] 200 2800 6000 01/05/2025 01/22/2025 Course Summary [...] care regimen. Patient will see Ophthalmology in [place] next week. Dr. Oliver was in for any questions or concerns. He will continue with radiation treatment as planned. Signed by: Rylee Barrios R.N. 01/22/2025 1:09 PM LEAD APPLIER APPLIER documented in this encounter Plan of Treatment Upcoming Encounters Date Type Department Care Team (Latest Contact Info) Description 02/03/2025 1:00 PM CDT Appointment Department of Radiation Oncology in [place], [place] [address] [place] [phone] Kiana Oliver M.D. [address] [place] [address] 02/04/2025 1:00 PM CDT Appointment Department of Radiation Oncology in [place], [place] [address] [place] [phone] Kiana Oliver M.D. [address] [place] [phone] 02/05/2025 12:45 PM CDT Appointment Department of Radiation Oncology in [place], [place] [address] [place] [phone] Kiana Oliver M.D. [address] [place] [phone] 02/05/2025 1:00 PM CDT Appointment Department of Radiation Oncology in [place], [place] [address] [place] [phone] Kiana Oliver M.D. [address] [place] [phone] 02/06/2025 1:00 PM CDT Appointment Department of Radiation Oncology in [place], [place] [address] [place] [phone] Kiana Oliver M.D. [address] [place] [phone] 02/09/2025 1:00 PM CDT Appointment Department of Radiation Oncology in [place], [place] [address] [place] [phone] Kiana Oliver M.D. [address] [place] [phone] 02/10/2025 1:00 PM CDT Appointment Department of Radiation Oncology in [place], [place] [address] [place] [address] Kiana Oliver M.D. [address] [place] [phone] 02/11/2025 1:00 PM CDT Appointment Department of Radiation Oncology in [place], [place] [address] [place] [phone] Kiana Oliver M.D. [address] [place] [phone] 02/12/2025 1:00 PM CDT Appointment Department of Radiation Oncology in [place], [place] [address] [place] [address] Kiana Oliver M.D. [address] [place] [phone] 02/12/2025 1:15 PM CDT Appointment Department of Radiation Oncology in [address] [phone] Kiana Oliver M.D. [address] [place] [phone] 02/13/2025 1:00 PM CDT Appointment Department of Radiation Oncology in [place], [place] [address] [place] [address] Kiana Oliver M.D. [address] [place] [phone] 02/16/2025 7:15 AM CDT Ancillary Procedure Department of Ophthalmology in [place], [place] [address] [place] [phone] Maida Tim O.D. [address] [place] [phone] 02/16/2025 8:00 AM CDT Comprehensive Visit Department of Ophthalmology in [place], [place] [address] [place] [phone] Desi Rasmussen O.D. [address] [place] [phone] 02/23/2025 8:15 AM CDT Clinical Communication Virtual Review in [place], [place] [address] [place] [address] 02/24/2025 9:40 AM CDT Office Visit Department of Dermatology in [place], [place] [address] [place] [phone] Felipe Stewart M.D. [address] [place] [phone] 02/24/2025 10:00 AM CDT Office Visit Jeyson Brown [facility] for Trans[facility] and Clinical Regeneration in [place], [place] [address] [place] [phone] Aide Welch P.A.-C., M.S. [address] [place] [phone] 03/03/2025 9:00 AM CDT Telemedicine Department of Nutrition and Diabetes Education in [address] [phone] Katelin Alcaraz, RETAIL SALES DIRECTOR, C.N.P., D.N.P. [address] [place] [phone] Mansi Ross M.S., RDN, LD [address] [place] [phone] Scheduled Orders Name Type Priority Associated Diagnoses [...] Total Score: 19 01/05/2 025 12:23 PM LEAD APPLIER documented as of this encounter Care Teams Vacuum Cleaner Operator Relationship Specialty Start Date End Date Kelly Mendez APRN, C.N.P., D.N.P. [address] [place] [phone] PCP - General Internal Medicine 12/05/[address] [place] [facility] [place] [facility] lab Laboratory Medicine 02/26/23 documented as of this encounter
--- OUTSIDE RECORDS SUMMARY | 2025-02-03 00:02 | XMS_ITS | Encounter Summary ---
Author Organization [facility] Address [address] [place] [address] Care Team Providers Care Front End Driver Name Role Phone Kelly Mendez APRN C.N.P., D.N.P. Primary Car e Provider Reason for Visit * Radiation Therapy (Routine) - Authorized Specialty Diagnoses / Procedures Referred By Juanito ayala Referred To Contact Diagnoses 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 Procedures Prior Auth Rad Tx TX IMRT COMPLEX TX GUIDANCE FOR LOC RAD TX TX IMRT RADIOTHERAPY PLAN IMRT Kiana Oliver M.D. [address] [place] [address] Phone: tel: fax: [facility] Radiation Oncology at [place] [address] [place] [phone] Referral ID Status Reason Start Date Expiration Date V isits Requested Visits Authorized [id number] Authorized 12/22/2024 03/10/2026 15 30 Encounter Details Date Type Department Care Team (Late st Contact Info) Description 01/22/2025 12:20 PM BANDAGE MAKER Hospital Encounter Department of Radiation Oncology in [place], [place] [address] [place] [phone] Kiana Oliver M.D. [address] [place] [phone] Social History Tobacco Use Types Packs/Day Years Used Date Smoking Tobacco: Former Cigarettes Q uit: 2008 Passive Smoke Exposure: Never Smokeless Tobacco: Never Alcohol Use Standard Drinks/Week Comments Not Currently 0 (1 standard drink = 0.6 oz pur e alcohol) last 06/23/22 [facility] Utilities Answer Date Recorded In the past [...] How often do you attend yarsanism or uatsdin serv ices? Patient declined 02/04/2023 [...] Answer Date Recorded PHQ-2 Score 6 11/23/2024 [facility] - Occupational [...] AM CDT Legal Sex Male 9:11 PM BANDAGE MAKER Gender Identity na 09/07/2021 10:32 AM CDT Sexual Orientation Choose not to disclose 2020 10:32 AM CDT documented as of this encounter Plan of Treatment Upcoming Encounters Date Type Department Care Team (Latest Contact Info) Description 02/03/2025 1:00 PM CDT Appointment Department of Radiation Oncology in [address] [address] Kiana Oliver M.D. [address] [place] [phone] 02/04/2025 1:00 PM CDT Appointment Department of Radiation Oncology in [address] [phone] Kiana Oliver M.D. [address] [place] [phone] 02/05/2025 12:45 PM CDT Appointment Department of Radiation Oncology in [address] [phone] Kiana Oliver M.D. [address] [place] [phone] 02/05/2025 1:00 PM CDT Appointment Department of Radiation Oncology in [address] [address] Kiana Oliver M.D. [address] [place] [phone] 02/06/2025 1:00 PM CDT Appointment Department of Radiation Oncology in [address] [phone] Kiana Oliver M.D. [address] [place] [phone] 02/09/2025 1:00 PM CDT Appointment Department of Radiation Oncology in [place], [place] [address] [place] [phone] Kiana Oliver M.D. [address] [place] [phone] 02/10/2025 1:00 PM CDT Appointment Department of Radiation Oncology in [place], [place] [address] [place] [phone] Kiana Oliver M.D. [address] [place] [phone] 02/11/2025 1:00 PM CDT Appointment Department of Radiation Oncology in [address] [phone] Kiana Oliver M.D. [address] [place] [phone] 02/12/2025 1:00 PM CDT Appointment Department of Radiation Oncology in [address] [phone] Kiana Olvier M.D. [address] [place] [phone] 02/12/2025 1:15 PM CDT Appointment Department of Radiation Oncology in [address] [phone] Kiana Oliver M.D. [address] [place] [phone] 02/13/2025 1:00 PM CDT Appointment Department of Radiation Oncology in [address] [phone] Kiana Oliver M.D. [address] [place] [phone] 02/16/2025 7:15 AM CDT Ancillary Procedure Department of Ophthalmology in [place], [place] [address] [place] [phone] Maida Tim O.D. [address] [place] [phone] 02/16/2025 8:00 AM CDT Comprehensive Visit Department of Ophthalmology in [place], [place] [address] [place] [phone] Desi Rasmussen O.D. [address] [place] [phone] 02/23/2025 8:15 AM CDT Clinical Communication Virtual Review in [place], [place] [address] [place] [address] 02/24/2025 9:40 AM CDT Office Visit Department of Dermatology in [address] [phone] Felipe Stewart M.D. [address] [place] [phone] 02/24/2025 10:00 AM CDT Office Visit Jeyson milan [facility] Clinical Reg[facility] in [place], [place] [address] [place] [phone] Aide Welch P.A.Willie., M.S. [address] [place] [phone] 03/03/2025 9:00 AM CDT Telemedicine Department of Nutrition and Diabetes Education in [address] [phone] Katelin Alcaraz, MARCUS, C.N.P., D.N.P. [address] [place] [phone] Mansi Ross M.S., RDN, LD [address] [place] [address] documented as of this encounter Visit Diagnoses Not on filedocumented in this encounter Additional Health Concerns Infection Onset Date Last Indicated Resolved Time Protective Environment 11/10/2023 11/10/2023 Assessment Noted Time PHQ-9 Depression Total Score: 19 025 12:23 PM BANDAGE MAKER documented as of this encounter Care Teams Front End Driver Relationship Specialty Start Date End Date Kelly Mendez APRN, C.N.P., D.N.P. [address] [place] [phone] PCP - General Internal Medicine 12/05/23 [facility] [place] or [facility] lab Laboratory Medicine 02/26/23 documented as of this encounter
--- OUTSIDE RECORDS SUMMARY | 2025-02-03 00:02 | XMS_ITS | Encounter Summary ---
Author Organization [facility] Address [address] [place] [address] Care Team Providers Care Housekeeping Manager Name Role Phone Kelly Mendez APRN C.N.P., D.N.P. Primary Car e Provider Reason for Visit * Radiation Therapy (Routine) - Authorized Specialty Diagnoses / Procedures Referred By Juanito ayala Referred To Contact Diagnoses 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 Procedures Prior Auth Rad Tx [place] IMRT COMPLEX [place] GUIDANCE FOR LOC RAD [place] IMRT RADIOTHERAPY PLAN IMRT Kiana Oliver M.D. 200 [place] [address] Phone: tel: fax: T [facility] at [place] [address] [place] [phone] Referral ID Status Reason Start Date Expiration Date V isits Requested Visits Authorized [id number] Authorized 12/22/2024 03/10/2026 15 30 Encounter Details Date Type Department Care Team (Late st Contact Info) Description 01/26/2025 12:46 PM CDT Hospital Encounter Department of Radiation Oncology in [place], [place] [address] [place] [phone] Kiana Oliver M.D. 200 [place] [phone] Social History Tobacco Use Types Packs/Day Years Used Date Smoking Tobacco: Former Cigarettes Q uit: 2008 Passive Smoke Exposure: Never Smokeless Tobacco: Never Alcohol Use Standard Drinks/Week Comments Not Currently 0 (1 standard drink = 0.6 oz pur e alcohol) last 06/23/22 [facility] Utilities Answer Date Recorded In [...] How often do you attend orthodoxy or orthodoxy serv ices? Patient declined 02/04/2023 [...] Answer Date Recorded PHQ-2 Score 6 11/23/2024 [facility] - Occupational [...] AM CDT Legal Sex Male 9:11 PM CUSTOMER SUCCESS DIRECTOR Gender Identity na 09/07/2021 10:32 AM CDT Sexual Orientation Choose not to disclose 2020 10:32 AM CDT documented as of this encounter Plan of Treatment Upcoming Encounters Date Type Department Care Team (Latest Contact Info) Description 02/03/2025 1:00 PM CDT Appointment Department of Radiation Oncology in [address] [phone] Kiana Oliver M.D. [address] [place] [phone] 02/04/2025 1:00 PM CDT Appointment Department of Radiation Oncology in [address] [phone] Kiana Oliver M.D. [address] [place] [phone] 02/05/2025 12:45 PM CDT Appointment Department of Radiation Oncology in [address] [address] Kiana Oliver M.D. [address] [place] [phone] 02/05/2025 1:00 PM CDT Appointment Department of Radiation Oncology in [address] [address] Kiana Oliver M.D. [address] [place] [address] 02/06/2025 1:00 PM CDT Appointment Department of Radiation Oncology in [address] [address] Kiana Oliver M.D. [address] [place] [phone] 02/09/2025 1:00 PM CDT Appointment Department of Radiation Oncology in [place], [place] [address] [place] [phone] Kiana Oliver M.D. [address] [place] [address] 02/10/2025 1:00 PM CDT Appointment Department of Radiation Oncology in [place], [place] [address] [place] [phone] Kiana Oliver M.D. [address] [place] [address] 02/11/2025 1:00 PM CDT Appointment Department of Radiation Oncology in [address] [address] Kiana Oliver M.D. [address] [place] [address] 02/12/2025 1:00 PM CDT Appointment Department of Radiation Oncology in [address] [address] Kiana Oliver M.D. 200 [place] [address] 02/12/2025 1:15 PM CDT Appointment Department of Radiation Oncology in [address] [address] Kiana Oliver M.D. 200 [place] [address] 02/13/2025 1:00 PM CDT Appointment Department of Radiation Oncology in [address] [address] Kiana Oliver M.D. [address] [place] [phone] 02/16/2025 7:15 AM CDT Ancillary Procedure Department of Ophthalmology in [place], [place] [address] [place] [phone] Maida Tim O.D. [address] [place] [phone] 02/16/2025 8:00 AM CDT Comprehensive Visit Department of Ophthalmology in [place], [place] [address] [place] [phone] Desi Rasmussen O.D. [address] [place] [phone] 02/23/2025 8:15 AM CDT Clinical Communication Virtual Review in [place], [place] 200 [place] [address] 02/24/2025 9:40 AM CDT Office Visit Department of Dermatology in [address] [address] Felipe Stewart M.D. [address] [place] [phone] 02/24/2025 10:00 AM CDT Office Visit Jeyson milan [facility] in [place], [place] [address] [place] [phone] Adie Welch P.A.-C., M.S. [address] [place] [phone] 03/03/2025 9:00 AM CDT Telemedicine Department of Nutrition and Diabetes Education in [address] [phone] Katelin Alcaraz, MARCUS, C.N.P., D.N.P. [address] [place] [phone] Mansi Ross M.S., RDN, LD [address] [place] [address] documented as of this encounter Visit Diagnoses Not on filedocumented in this encounter Additional Health Concerns Infection Onset Date Last Indicated Resolved Time Protective Environment 11/10/2023 11/10/2023 Assessment Noted Time PHQ-9 Depression Total Score: 19 025 12:23 PM CUSTOMER SUCCESS DIRECTOR documented as of this encounter Care Teams Housekeeping Manager Relationship Specialty Start Date End Date Kelly Mendez APRN, C.N.P., D.N.P. [address] [place] [phone] PCP - General Internal Medicine 12/05/23 [facility] [place] or [facility] lab Laboratory Medicine 02/26/23 documented as of this encounter
--- OUTSIDE RECORDS SUMMARY | 2025-02-03 00:03 | XMS_ITS | Encounter Summary ---
Author Organization [facility] Address [address] [place] [address] Care Team Providers Care Flight Test Engineer Name Role Phone Kelly Mendez APRN C.N.P., D.N.P. Primary Car e Provider Reason for Visit * Radiation Therapy (Routine) - Authorized Specialty Diagnoses / Procedures Referred By Juanito ayala Referred To Contact Diagnoses 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 Procedures Prior Auth Rad Tx [place] IMRT COMPLEX [place] GUIDANCE FOR LOC RAD TX [place] IMRT RADIOTHERAPY PLAN IMRT Kiana Oliver M.D. 200 [place] [address] Phone: tel: fax: [facility] Radiation Oncology at [place] [address] [place] [phone] Referral ID Status Reason Start Date Expiration Date V isits Requested Visits Authorized [id number] Authorized 12/22/2024 03/10/2026 15 30 Encounter Details Date Type Department Care Team (Late st Contact Info) Description 01/20/2025 12:18 PM MATERIALS SCIENTIST Hospital Encounter Department of Radiation Oncology in [place], [place] [address] [place] [phone] Kiana Oliver M.D. [address] [place] [phone] Social History Tobacco Use Types Packs/Day Years [...] week 02/04/2023 How often do you attend zoroastrian or muslim serv ices? Patient declined 02/04/2023 Do you belong to any clubs o r organizations such as zoroastrian groups, unions, fraternal or athletic groups, or [...] Date Recorded PHQ-2 Score 6 11/23/2024 [facility] Occupat ional Health - [...] AM CDT Legal Sex Male 9:11 PM MATERIALS SCIENTIST Gender Identity na 09/07/2021 10:32 AM CDT Sexual Orientation Choose not to disclose 2020 10:32 AM CDT documented as of this encounter Plan of Treatment Upcoming Encounters Date Type Department Care Team (Latest Contact Info) Description 02/03/2025 1:00 PM CDT Appointment Department of Radiation Oncology in [address] [address] Kiana Oliver M.D. [address] [place] [phone] 02/04/2025 1:00 PM CDT Appointment Department of Radiation Oncology in [address] [address] Kiana Oliver M.D. [address] [place] [phone] 02/05/2025 12:45 PM CDT Appointment Department of Radiation Oncology in [address] [address] Kiana Oliver M.D. [address] [place] [phone] 02/05/2025 1:00 PM CDT Appointment Department of Radiation Oncology in [address] [address] Kiana Oliver M.D. [address] [place] [phone] 02/06/2025 1:00 PM CDT Appointment Department of Radiation Oncology in [address] [address] Kiana Oliver M.D. [address] [place] [phone] 02/09/2025 1:00 PM CDT Appointment Department of Radiation Oncology in [place], [place] [address] [place] [phone] Kiana Oliver M.D. [address] [place] [phone] 02/10/2025 1:00 PM CDT Appointment Department of Radiation Oncology in [place], [place] [address] [place] [phone] Kiana Oliver M.D. [address] [place] [address] 02/11/2025 1:00 PM CDT Appointment Department of Radiation Oncology in [address] [address] Kiana Oliver M.D. [address] [place] [phone] 02/12/2025 1:00 PM CDT Appointment Department of Radiation Oncology in [address] [address] Kiana Oliver M.D. [address] [place] [phone] 02/12/2025 1:15 PM CDT Appointment Department of Radiation Oncology in [address] [address] Kiana Oliver M.D. [address] [place] [address] 02/13/2025 1:00 PM CDT Appointment Department of Radiation Oncology in [address] [address] Kiana Oliver M.D. [address] [place] [address] 02/16/2025 7:15 AM CDT Ancillary Procedure Department of Ophthalmology in [place], [place] [address] [place] [phone] Maida Tim O.D. [address] [place] [phone] 02/16/2025 8:00 AM CDT Comprehensive Visit Department of Ophthalmology in [place], [place] [address] [place] [phone] Desi Rasmussen O.D. [address] [place] [phone] 02/23/2025 8:15 AM CDT Clinical Communication Virtual Review in [place], [place] 200 [place] [address] 02/24/2025 9:40 AM CDT Office Visit Department of Dermatology in [address] [address] Felipe Stewart M.D. [address] [place] [phone] 02/24/2025 10:00 AM CDT Office Visit Jeyson milan [facility] for Transplantation and Clinical Regeneration in [place], [place] [address] [place] [phone] Aide Welch P.A.Willie., M.S. [address] [place] [phone] 03/03/2025 9:00 AM CDT Telemedicine Department of Nutrition and Diabetes Education in [address] [address] Katelin Alcaraz, MARCUS, C.N.P., D.N.P. [address] [place] [phone] Mansi Ross M.S., RDN, LD [address] [place] [address] documented as of this encounter Visit Diagnoses Not on filedocumented in this encounter Additional Health Concerns Infection Onset Date Last Indicated Resolved Time Protective Environment 11/10/2023 11/10/2023 Assessment Noted Time PHQ-9 Depression Total Score: 19 025 12:23 PM MATERIALS SCIENTIST documented as of this encounter Care Teams Flight Test Engineer Relationship Specialty Start Date End Date Kelly Mendez APRN, C.N.P., D.N.P. [address] [place] [phone] PCP - General Internal Medicine 12/05/23 [facility] [place] or [facility] lab Laboratory Medicine 02/26/23 documented as of this encounter
--- OUTSIDE RECORDS SUMMARY | 2025-02-03 00:03 | XMS_ITS | Encounter Summary ---
Author Organization [facility] Address [address] [place] [address] Care Team Providers Care [place] Boatman Name Role Phone Kelly Mendez APRN C.N.P., D.N.P. Primary Car e Provider Reason for Visit * Radiation Therapy (Routine) - Authorized Specialty Diagnoses / Procedures Referred By Juanito ayala Referred To Contact Diagnoses 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 Procedures Prior Auth Rad Tx [place] IMRT COMPLEX [place] GUIDANCE FOR LOC RAD TX [place] IMRT RADIOTHERAPY PLAN IMRT Kiana Oliver M.D. 200 [place] [address] Phone: tel: fax: [facility] Radiation Oncology at [place] [address] [place] [phone] Referral ID Status Reason Start Date Expiration Date V isits Requested Visits Authorized [id number] Authorized 12/22/2024 03/10/2026 15 30 Encounter Details Date Type Department Care Team (Late st Contact Info) Description 01/16/2025 12:21 PM LEADERSHIP RECRUITER Hospital Encounter Department of Radiation Oncology in [place], [place] [address] [place] [phone] Kiana Oliver M.D. [address] [place] [phone] Social History Tobacco Use Types Packs/Day Years Used Date Smoking Tobacco: Former Cigarettes Q uit: 2008 Passive Smoke Exposure: Never Smokeless Tobacco: Never Alcohol Use Standard Drinks/Week Comments Not Currently 0 (1 standard drink = 0.6 oz pur e alcohol) last 06/23/22 [facility] Utilities Answer Date Recorded [...] How often do you attend sikh or jew serv ices? Patient declined 02/04/2023 [...] AM CDT Legal Sex Male 9:11 PM LEADERSHIP RECRUITER Gender Identity na 09/07/2021 10:32 AM CDT Sexual Orientation Choose not to disclose 2020 10:32 AM CDT documented as of this encounter Plan of Treatment Upcoming Encounters Date Type Department Care Team (Latest Contact Info) Description 02/03/2025 1:00 PM CDT Appointment Department of Radiation Oncology in [address] [phone] Kiana Oliver M.D. [address] [place] [phone] 02/04/2025 1:00 PM CDT Appointment Department of Radiation Oncology in [address] [address] Kiana Oliver M.D. [address] [place] [phone] 02/05/2025 12:45 PM CDT Appointment Department of Radiation Oncology in [address] [address] Kiana Oliver M.D. [address] [place] [phone] 02/05/2025 1:00 PM CDT Appointment Department of Radiation Oncology in [address] [address] Kiana Oliver M.D. [address] [place] [phone] 02/06/2025 1:00 PM CDT Appointment Department of Radiation Oncology in [address] [address] Kiana Oliver M.D. [address] [place] [phone] 02/09/2025 1:00 PM CDT Appointment Department of Radiation Oncology in [place], [place] [address] [place] [phone] Kiana Oliver M.D. [address] [place] [phone] 02/10/2025 1:00 PM CDT Appointment Department of Radiation Oncology in [place], [place] [address] [place] [phone] Kiana Oliver M.D. [address] [place] [phone] 02/11/2025 1:00 PM CDT Appointment Department of Radiation Oncology in [address] [address] Kiana Oliver M.D. [address] [place] [phone] 02/12/2025 1:00 PM CDT Appointment Department of Radiation Oncology in [address] [address] Kiana Oliver M.D. [address] [place] [phone] 02/12/2025 1:15 PM CDT Appointment Department of Radiation Oncology in [address] [address] Kiana Oliver M.D. [address] [place] [phone] 02/13/2025 1:00 PM CDT Appointment Department of Radiation Oncology in [address] [address] Kiana Oliver M.D. [address] [place] [phone] 02/16/2025 7:15 AM CDT Ancillary Procedure Department of Ophthalmology in [place], [place] [address] [place] [phone] Maida Tim O.D. [address] [place] [phone] 02/16/2025 8:00 AM CDT Comprehensive Visit Department of Ophthalmology in [place], [place] [address] [place] [phone] Desi Rasmussen O.D. [address] [place] [phone] 02/23/2025 8:15 AM CDT Clinical Communication Virtual Review in [place], [place] 200 [place] [address] 02/24/2025 9:40 AM CDT Office Visit Department of Dermatology in [address] [address] Felipe Stewart M.D. [address] [place] [phone] 02/24/2025 10:00 AM CDT Office Visit Jeyson milan [facility] for Transplantation and Clinical Regeneration in [place], [place] [address] [place] [phone] Aide Welch P.A.Willie., M.S. [address] [place] [phone] 03/03/2025 9:00 AM CDT Telemedicine Department of Nutrition and Diabetes Education in [address] [phone] Katelin Alcaraz, MARCUS, C.N.P., D.N.P. [address] [place] [phone] Mansi Ross M.S., RDN, LD [address] [place] [address] documented as of this encounter Visit Diagnoses Not on filedocumented in this encounter Additional Health Concerns Infection Onset Date Last Indicated Resolved Time Protective Environment 11/10/2023 11/10/2023 Assessment Noted Time PHQ-9 Depression Total Score: 19 025 12:23 PM LEADERSHIP RECRUITER documented as of this encounter Care Teams [place] Boatman Relationship Specialty Start Date End Date Kelly Mendez APRN, C.N.P., D.N.P. [address] [place] [phone] PCP - General Internal Medicine 12/05/23 [facility] [place] or [facility] lab Laboratory Medicine 02/26/23 documented as of this encounter
--- OUTSIDE RECORDS SUMMARY | 2025-02-03 00:03 | XMS_ITS | Encounter Summary ---
Author Organization [facility] Address [address] [place] [address] Care Team Providers Care Lubrication Supervisor Name Role Phone Kelly Mendez APRN C.N.P., D.N.P. Primary Car e Provider Reason for Visit * Radiation Therapy (Routine) - Authorized Specialty Diagnoses / Procedures Referred By Juanito ayala Referred To Contact Diagnoses 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 Procedures Prior Auth Rad Tx [place] IMRT COMPLEX [place] GUIDANCE FOR LOC RAD TX [place] IMRT RADIOTHERAPY PLAN IMRT Kiana Oliver M.D. 200 [place] [address] Phone: tel: fax: [facility] Radiation Oncology at [place] [address] [place] [phone] Referral ID Status Reason Start Date Expiration Date V isits Requested Visits Authorized [id number] Authorized 12/22/2024 03/10/2026 15 30 Encounter Details Date Type Department Care Team (Late st Contact Info) Description 01/23/2025 12:40 PM POLICE COMMISSIONER Hospital Encounter Department of Radiation Oncology in [place], [place] [address] [place] [phone] Kiana Oliver M.D. [address] [place] [phone] Social History Tobacco Use Types Packs/Day Years Used Date Smoking Tobacco: Former Cigarettes Q uit: 2008 Passive Smoke Exposure: Never Smokeless Tobacco: Never Alcohol Use Standard Drinks/Week Comments Not Currently 0 (1 standard drink = 0.6 oz pur e alcohol) last 06/23/22 [facility] Utilities Answer Date Recorded In the [...] How often do you attend latter-day or caodaism serv ices? Patient declined 02/04/2023 [...] AM CDT Legal Sex Male 9:11 PM POLICE COMMISSIONER Gender Identity na 09/07/2021 10:32 AM CDT Sexual Orientation Choose not to disclose 2020 10:32 AM CDT documented as of this encounter Plan of Treatment Upcoming Encounters Date Type Department Care Team (Latest Contact Info) Description 02/03/2025 1:00 PM CDT Appointment Department of Radiation Oncology in [address] [phone] Kiana Oliver M.D. [address] [place] [phone] 02/04/2025 1:00 PM CDT Appointment Department of Radiation Oncology in [address] [address] Kiana Oliver M.D. [address] [place] [phone] 02/05/2025 12:45 PM CDT Appointment Department of Radiation Oncology in [address] [address] Kiana Oliver M.D. [address] [place] [phone] 02/05/2025 1:00 PM CDT Appointment Department of Radiation Oncology in [address] [address] Kiana Oliver M.D. [address] [place] [address] 02/06/2025 1:00 PM CDT Appointment Department of Radiation Oncology in [address] [address] Kiana Oliver M.D. [address] [place] [phone] 02/09/2025 1:00 PM CDT Appointment Department of Radiation Oncology in [place], [place] [address] [place] [phone] Kiana Oliver M.D. [address] [place] [phone] 02/10/2025 1:00 PM CDT Appointment Department of Radiation Oncology in [place], [place] [address] [place] [phone] Kiana Oliver M.D. [address] [place] [phone] 02/11/2025 1:00 PM CDT Appointment Department of Radiation Oncology in [address] [address] Kiana Oliver M.D. [address] [place] [phone] 02/12/2025 1:00 PM CDT Appointment Department of Radiation Oncology in [address] [address] Kiana Oliver M.D. [address] [place] [phone] 02/12/2025 1:15 PM CDT Appointment Department of Radiation Oncology in [address] [address] Kiana Oliver M.D. [address] [place] [phone] 02/13/2025 1:00 PM CDT Appointment Department of Radiation Oncology in [address] [address] Kiana Oliver M.D. [address] [place] [phone] 02/16/2025 7:15 AM CDT Ancillary Procedure Department of Ophthalmology in [place], [place] [address] [place] [phone] Maida Tim O.D. [address] [place] [phone] 02/16/2025 8:00 AM CDT Comprehensive Visit Department of Ophthalmology in [place], [place] [address] [place] [phone] Desi Rasmussen O.D. [address] [place] [phone] 02/23/2025 8:15 AM CDT Clinical Communication Virtual Review in [place], [place] 200 [place] [address] 02/24/2025 9:40 AM CDT Office Visit Department of Dermatology in [address] [address] Felipe Stewart M.D. [address] [place] [phone] 02/24/2025 10:00 AM CDT Office Visit Jeyson milan [facility] for Transplantation and Clinical Regeneration in [place], [place] [address] [place] [phone] Aide Welch P.A.Willie., M.S. [address] [place] [phone] 03/03/2025 9:00 AM CDT Telemedicine Department of Nutrition and Diabetes Education in [address] [address] Katelin Alcaraz, MARCUS, C.N.P., D.N.P. [address] [place] [phone] Mansi Ross M.S., RDN, LD [address] [place] [address] documented as of this encounter Visit Diagnoses Not on filedocumented in this encounter Additional Health Concerns Infection Onset Date Last Indicated Resolved Time Protective Environment 11/10/2023 11/10/2023 Assessment Noted Time PHQ-9 Depression Total Score: 19 025 12:23 PM POLICE COMMISSIONER documented as of this encounter Care Teams Lubrication Supervisor Relationship Specialty Start Date End Date Kelly Mendez APRN, C.N.P., D.N.P. [address] [place] [phone] PCP - General Internal Medicine 12/05/23 [facility] [place] or [facility] lab Laboratory Medicine 02/26/23 documented as of this encounter
--- OUTSIDE RECORDS SUMMARY | 2025-02-03 00:03 | XMS_ITS | Encounter Summary ---
Author Organization [facility] Address [address] [place] [address] Care Team Providers Care Risk Reduction Counselor Name Role Phone Andrea Kellylilia Buchanan APRN C.N.P., D.N.P. Primary Car e Provider Reason for Visit * Radiation Therapy (Routine) - Authorized Specialty Diagnoses / Procedures Referred By Juanito ayala Referred To Contact Diagnoses 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 Procedures Prior Auth Rad Tx CA IMRT COMPLEX CA GUIDANCE FOR LOC RAD TX CA IMRT RADIOTHERAPY PLAN IMRT Kiana Oliver M.D. [address] [place] [address] Phone: tel: fax: [facility] Radiation Oncology at [place] [address] [place] [phone] Referral ID Status Reason Start Date Expiration Date V isits Requested Visits Authorized [id number] Authorized 12/22/2024 03/10/2026 15 30 Encounter Details Date Type Department Care Team (Late st Contact Info) Description 01/21/2025 12:17 PM [facility] Encounter Department of Radiation Oncology in [address] [phone] Kiana Oliver M.D. [address] [place] [phone] Social History Tobacco Use Types Packs/Day Years Used Date Smoking Tobacco: Former Cigarettes Q uit: 2008 Passive Smoke Exposure: Never Smokeless Tobacco: Never Alcohol Use Standard Drinks/Week Comments Not Currently 0 (1 standard drink = 0.6 oz pur e alcohol) last 06/23/22 [facility] Utilities Answer Date Recorded In [...] week 02/04/2023 How often do you attend alevism or lutheran serv ices? Patient declined 02/04/2023 Do you belong to any clubs o r organizations such as alevism groups, unions, fraternal or athletic groups, or [...] Answer Date Recorded PHQ-2 Score 6 11/23/2024 [facility] of Occupat ional Health [...] AM CDT Legal Sex Male 9:11 PM TWISTHAND Gender Identity na 09/07/2021 10:32 AM CDT Sexual Orientation Choose not to disclose 2020 10:32 AM CDT documented as of this encounter Plan of Treatment Upcoming Encounters Date Type Department Care Team (Latest Contact Info) Description 02/03/2025 1:00 PM CDT Appointment Department of Radiation Oncology in [address] [address] Kiana Oliver M.D. [address] [place] [phone] 02/04/2025 1:00 PM CDT Appointment Department of Radiation Oncology in [address] [address] Kiana Oliver M.D. [address] [place] [phone] 02/05/2025 12:45 PM CDT Appointment Department of Radiation Oncology in [address] [address] Kiana Oliver M.D. [address] [place] [phone] 02/05/2025 1:00 PM CDT Appointment Department of Radiation Oncology in [address] [address] Kiana Oliver M.D. [address] [place] [phone] 02/06/2025 1:00 PM CDT Appointment Department of Radiation Oncology in [address] [address] Kiana Oliver M.D. [address] [place] [phone] 02/09/2025 1:00 PM CDT Appointment Department of Radiation Oncology in [place], [place] [address] [place] [phone] Kiana Oliver M.D. [address] [place] [phone] 02/10/2025 1:00 PM CDT Appointment Department of Radiation Oncology in [place], [place] [address] [place] [phone] Kiana Oliver M.D. [address] [place] [phone] 02/11/2025 1:00 PM CDT Appointment Department of Radiation Oncology in [address] [address] Kiana Oliver M.D. [address] [place] [phone] 02/12/2025 1:00 PM CDT Appointment Department of Radiation Oncology in [address] [address] Kiana Oliver M.D. [address] [place] [phone] 02/12/2025 1:15 PM CDT Appointment Department of Radiation Oncology in [address] [address] Kiana Oliver M.D. [address] [place] [phone] 02/13/2025 1:00 PM CDT Appointment Department of Radiation Oncology in [address] [address] Kiana Oliver M.D. [address] [place] [phone] 02/16/2025 7:15 AM CDT Ancillary Procedure Department of Ophthalmology in [place], [place] [address] [place] [phone] Maida Tim O.D. [address] [place] [phone] 02/16/2025 8:00 AM CDT Comprehensive Visit Department of Ophthalmology in [place], [place] [address] [place] [phone] Desi Rasmussen O.D. [address] [place] [phone] 02/23/2025 8:15 AM CDT Clinical Communication Virtual Review in [place], [place] 200 [place] [address] 02/24/2025 9:40 AM CDT Office Visit Department of Dermatology in [address] [address] Felipe Stewart M.D. [address] [place] [phone] 02/24/2025 10:00 AM CDT Office Visit Jeyson milan [facility] for Transplantation and Clinical Regeneration in [place], [place] [address] [place] [phone] Aide Welch P.A.Willie., M.S. [address] [place] [phone] 03/03/2025 9:00 AM CDT Telemedicine Department of Nutrition and Diabetes Education in [address] [address] Katelin Alcaraz, MARCUS, C.N.P., D.N.P. [address] [place] [phone] Mansi Ross M.S., RDN, LD [address] [place] [address] documented as of this encounter Visit Diagnoses Not on filedocumented in this encounter Additional Health Concerns Infection Onset Date Last Indicated Resolved Time Protective Environment 11/10/2023 11/10/2023 Assessment Noted Time PHQ-9 Depression Total Score: 19 025 12:23 PM TWISTHAND documented as of this encounter Care Teams Risk Reduction Counselor Relationship Specialty Start Date End Date Kelly Mendez APRN, C.N.P., D.N.P. [address] [place] [phone] PCP - General Internal Medicine 12/05/23 [facility] [place] or [facility] [facility] lab Laboratory Medicine 02/26/23 documented as of this encounter
--- OUTSIDE RECORDS SUMMARY | 2025-02-03 00:03 | XMS_ITS | Encounter Summary ---
Author Organization [facility] Address [address] [place] [address] Care Team Providers Care Street Superintendent Name Role Phone AndreaKelly Chanel VELAZQUEZ C.N.Jose, D.N.P. Primary Car e Provider Encounter Details Date Type Department Care Team (Latest Contact Info) Description 01/19/2025 Orders Only Jeyson milan [facility] for Transplantation and Clinical Regeneration in [place], [place] [address] [place] [address] Christy Abad R.N., C.C.T.C. [address] [place] [address] Transplant Liver (HCC) (Primary Dx); Medication Therapy Retirement Not Anticoagulant Social History Tobacco Use Types Packs/Day Years Used Date Smoking Tobacco: Former Cigarettes Q uit: 2008 Passive Smoke Exposure: Never Smokeless Tobacco: Never Alcohol Use Standard Drinks/Week Comments Not Currently 0 (1 standard drink = 0.6 oz pur e alcohol) last 06/23/22 [facility] Utilities Answer Date Recorded In the past 12 months has e [employer], gas, oil, or water [employer] threatened to shut off services in your [...] week 02/04/2023 How often do you attend mosque or hindu serv ices? Patient declined 02/04/2023 Do you belong to any clubs o r organizations such as mosque groups, unions, fraternal or athletic groups, or [...] Answer Date Recorded PHQ-2 Score 6 11/23/2024 [facility] of Occupat ional Health - Occupational Stress [...] AM CDT Legal Sex Male 9:11 PM AREA FIELD MANAGER Gender Identity na 09/07/2021 10:32 AM CDT Sexual Orientation Choose not to disclose 2020 10:32 AM CDT documented as of this encounter Plan of Treatment Upcoming Encounters Date Type Department Care Team (Latest Contact Info) Description 02/03/2025 1:00 PM CDT Appointment Department of Radiation Oncology in [place], [place] [address] [place] [phone] Kiana Oliver M.D. [address] [place] [address] 02/04/2025 1:00 PM CDT Appointment Department of Radiation Oncology in [address] [address] Kiana Oliver M.D. [address] [place] [phone] 02/05/2025 12:45 PM CDT Appointment Department of Radiation Oncology in [address] [address] Kiana Oliver M.D. [address] [place] [phone] 02/05/2025 1:00 PM CDT Appointment Department of Radiation Oncology in [address] [address] Kiana Oliver M.D. [address] [place] [phone] 02/06/2025 1:00 PM CDT Appointment Department of Radiation Oncology in [address] [address] Kiana Oliver M.D. [address] [place] [phone] 02/09/2025 1:00 PM CDT Appointment Department of Radiation Oncology in [address] [address] Kiana Oliver M.D. [address] [place] [phone] 02/10/2025 1:00 PM CDT Appointment Department of Radiation Oncology in [address] [address] Kiana Oliver M.D. [address] [place] [phone] 02/11/2025 1:00 PM CDT Appointment Department of Radiation Oncology in [place], [place] [address] [place] [address] Kiana Oliver M.D. [address] [place] [phone] 02/12/2025 1:00 PM CDT Appointment Department of Radiation Oncology in [place], [place] [address] [place] [phone] Kiana Oliver M.D. [address] [place] [phone] 02/12/2025 1:15 PM CDT Appointment Department of Radiation Oncology in [place], [place] [address] [place] [address] Kiana Oliver M.D. [address] [place] [phone] 02/13/2025 1:00 PM CDT Appointment Department of Radiation Oncology in [place], [place] [address] [place] [address] Kiana Oliver M.D. [address] [place] [phone] 02/16/2025 7:15 AM CDT Ancillary Procedure Department of Ophthalmology in [place], [place] [address] [place] [phone] Maida Tim O.D. [address] [place] [phone] 02/16/2025 8:00 AM CDT Comprehensive Visit Department of Ophthalmology in [place], [place] [address] [place] [phone] Desi Rasmussen O.D. [address] [place] [phone] 02/23/2025 8:15 AM CDT Clinical Communication Virtual Review in [place], [place] 200 [place] [phone] 02/24/2025 9:40 AM CDT Office Visit Department of Dermatology in [place], [place] [address] [place] [phone] Felipe Stewart M.D. [address] [place] [phone] 02/24/2025 10:00 AM CDT Office Visit Jeyson [facility] and Clinical Reg[facility] in [place], [place] [address] [place] [phone] Aide Welch P.A.-C., M.S. [address] [place] [phone] 03/03/2025 9:00 AM CDT Telemedicine Department of Nutrition and Diabetes Education in [place], [place] [address] [place] [phone] Katelin Alcaraz APRN, C.N.P., D.N.P. [address] [place] [phone] Mansi Ross M.S., RDN, LD [address] [place] [phone] Pending Results Name Type Priority Associated Diagnoses Date /Time Testosterone, Total and Free Lab Routine Transplant Liver (HCC) Medication Therapy Biomedical Manager Not Anticoagulant 01/30/2025 10:33 AM CDT Scheduled Orders Name Type Priority Associated Diagnoses Orde r Schedule Testosterone, Total and Free Lab Routine Transplant Liver (HCC) Medication Therapy Retirement Not Anticoagulant Expected: 01/30/2025, Expires: 04/21/2026 documented as of this encounter Visit Diagnoses Diagnosis Transplant Liver (HCC)- Primary Medication Therapy Retirement Not Anticoagulant documented in this encounter Additional Health Concerns Infection Onset Date Last Indicated Resolved Time Protective Environment 11/10/2023 11/10/2023 Assessment Noted Time PHQ-9 Depression Total Score: 19 025 12:23 PM AREA FIELD MANAGER documented as of this encounter Care Teams Street Superintendent Relationship Specialty Start Date End Date Kelly Mendez APRN, C.N.P., D.N.P. [address] [place] [phone] PCP - General Internal Medicine 12/05/23 [facility] [place] or Anabel [facility] lab Laboratory Medicine 02/26/23 documented as of this encounter
--- OUTSIDE RECORDS SUMMARY | 2025-02-03 00:03 | XMS_ITS | Encounter Summary ---
Author Organization [facility] Address [address] [place] [address] Care Team Providers Care Roving Tester Laboratory Name Role Phone Kelly Mendez APRN C.N.P., D.N.P. Primary Car e Provider Encounter Details Date Type Department Care Team (Late st Contact Info) Description 01/15/2025 1:35 PM RESIDENTIAL CAREGIVER Ancillary Procedure Department of Oncology Social History Tobacco Use Types Packs/Day Years Used Date Smoking Tobacco: Former Cigarettes Q uit: 2008 Passive Smoke Exposure: Never Smokeless Tobacco: Never Alcohol Use Standard Drinks/Week Comments Not Currently 0 (1 standard drink = 0.6 oz pur e alcohol) last 06/23/22 [facility] Utilities Answer Date Recorded In the past 12 months has [facility] [employer], gas, oil, or water [employer] threatened to shut off services in your [...] How often do you attend episcopalian or moravian serv ices? Patient declined 02/04/2023 Do you belong to any clubs o r organizations such as episcopalian groups, unions, fraFanplayr or athletic groups, or school groups? No [...] [facility] of Occupat ional [facility] - Occupational Stress Questionnaire Answer [...] AM CDT Legal Sex Male 9:11 PM RESIDENTIAL CAREGIVER Gender Identity na 09/07/2021 10:32 AM CDT Sexual Orientation Choose not to disclose 2020 10:32 AM CDT documented as of this encounter Plan of Treatment Upcoming Encounters Date Type Department Care Team (Latest Contact Info) Description 02/03/2025 1:00 PM CDT Appointment Department of Radiation Oncology in [address] [phone] Kiana Oliver M.D. 200 [place] [address] 02/04/2025 1:00 PM CDT Appointment Department of Radiation Oncology in [place] [address] [place] [address] Kiana Oliver M.D. [address] [place] [address] 02/05/2025 12:45 PM CDT Appointment Department of Radiation Oncology in [place], [place] [address] [place] [phone] Kiana Oliver M.D. [address] [place] [phone] 02/05/2025 1:00 PM CDT Appointment Department of Radiation Oncology in [address] [address] Kiana Oliver M.D. [address] [place] [phone] 02/06/2025 1:00 PM CDT Appointment Department of Radiation Oncology in [address] [address] Kiana Oliver M.D. [address] [place] [phone] 02/09/2025 1:00 PM CDT Appointment Department of Radiation Oncology in [address] [address] Kiana Oliver M.D. [address] [place] [phone] 02/10/2025 1:00 PM CDT Appointment Department of Radiation Oncology in [address] [address] Kiana Oliver M.D. [address] [place] [phone] 02/11/2025 1:00 PM CDT Appointment Department of Radiation Oncology in [address] [address] Kiana Oliver M.D. [address] [place] [phone] 02/12/2025 1:00 PM CDT Appointment Department of Radiation Oncology in [place], [place] [address] [place] [address] Kiana Oliver M.D. [address] [place] [phone] 02/12/2025 1:15 PM CDT Appointment Department of Radiation Oncology in [place], [place] [address] [place] [phone] Kiana Oliver M.D. [address] [place] [phone] 02/13/2025 1:00 PM CDT Appointment Department of Radiation Oncology in [place], [place] [address] [place] [address] Kiana Oliver M.D. [address] [place] [phone] 02/16/2025 7:15 AM CDT Ancillary Procedure Department of Ophthalmology in [address] [place] [phone] Maida Tim O.D. [address] [place] [phone] 02/16/2025 8:00 AM CDT Comprehensive Visit Department of Ophthalmology in [address] [place] [phone] Desi Rasmussen O.D. [address] [place] [phone] 02/23/2025 8:15 AM CDT Clinical Communication Virtual Review in [address] [place] [address] 02/24/2025 9:40 AM CDT Office Visit Department of Dermatology in [address] [place] [phone] Felipe Stewart M.D. [address] [place] [phone] 02/24/2025 10:00 AM CDT Office Visit Jeyson Kevin [facility] for Transplantation and Clinical Regeneration in [address] [place] [phone] Aide Welch P.A.-C., M.S. [address] [place] [phone] 03/03/2025 9:00 AM CDT Telemedicine Department of Nutrition and Diabetes Education in [address] [phone] Katelin Alcaraz APRN, C.N.P., D.N.P. [address] [place] [phone] Mansi Ross M.S., RDN, LD [address] [place] [phone] documented as of this encounter Procedures Procedure Name Priority Date/Time Associated Diagnosis Comments ONCOLOGY IMAGE EXAM Routine 01/15/2025 1 :33 PM RESIDENTIAL CAREGIVER documented in this encounter Results * Face 507-Oncology Image Exam (01/15/2025 1:33 PM RESIDENTIAL CAREGIVER) 01/15/2025 1:31 PM RESIDENTIAL CAREGIVER Narrative IIMS - 01/15/2025 1:33 PM RESIDENTIAL CAREGIVER This order has been created and auto-finalized [...] Depression Total Score: 19 025 12:23 PM RESIDENTIAL CAREGIVER documented as of this encounter Care Teams Roving Tester Laboratory Relationship Specialty Start Date End Date Kelly Mendez APRN, C.N.P., D.N.P. [address] [place] [phone] PCP - General Internal Medicine 12/05/23 [facility] [place] or Anabel [facility] lab Laboratory Medicine 02/26/23 documented as of this encounter
--- OUTSIDE RECORDS SUMMARY | 2025-02-03 00:04 | XMS_ITS | Encounter Summary ---
Author Organization [facility] Address [address] [place] [address] Care Team Providers Care Intensive Care Medicine Specialist Name Role Phone Andrea Kellylilia Buchanan APRN C.N.Jose, D.N.P. Primary Car e Provider Reason for Visit * Transplant (Routine) - Closed Specialty Diagnoses / Procedures Referred By Juanito ayala Referred To Contact Transplant Diagnoses Transplant Liver (HCC) Medication Therapy Fpc Not Anticoagulant Aide Welch P.A.-C., M.S. [address] [place] [phone] Phone: tel: fax: [facility] Referral ID Status Reason Start Date Expiration Date Visits Re quested Visits Authorized [id number] Closed 01/01/2025 07/03/2026 1 1 Encounter Details Date Type Department Care Team (Latest Contact Info) Description 01/19/2025 2:45 PM HEADER DOCK Telemedicine Jeyson Brown [facility] for Transplantation and Clinical Regeneration in [place], [place] [address] [place] [phone] Aide Welch P.A.-C., M.S. [address] [place] [phone] Jayda Shetty M.D. [address] [place] [phone] Transplant Liver (HCC); Medication Therapy Lettuce Cutter Not Anticoagulant Social History Tobacco Use Types Packs/Day Years Used Date Smoking Tobacco: Former Cigarettes Q uit: 2008 Passive Smoke Exposure: Never Smokeless Tobacco: Never Alcohol Use Standard Drinks/Week Comments Not Currently 0 (1 standard drink = 0.6 oz pur e alcohol) last 06/23/22 [facility] Utilities Answer Date Recorded In the past 12 months has e [employer], [employer], or water [employer] threatened to shut off services in [...] How often do you attend yazidi or anglican serv ices? Patient declined 02/04/2023 Do you [...] Date Recorded PHQ-2 Score 6 11/23/2024 [facility] - Occupational Stress Questionnaire Answer Date Recorded [...] AM CDT Legal Sex Male 9:11 PM HEADER DOCK Gender Identity na 09/07/2021 10:32 AM CDT [...] was admitted in [facility] A gastric feeding tube was [...] Jayda Shetty M.D. CT CT Job ID: [id number] documented in this encounter Plan of Treatment Upcoming Encounters Date Type Department Care Team (Latest Contact Info) Description 02/03/2025 1:00 PM CDT Appointment Department of Radiation Oncology in [address] [address] Kiana Oliver M.D. [address] [place] [phone] 02/04/2025 1:00 PM CDT Appointment Department of Radiation Oncology in [address] [address] Kiana Oliver M.D. [address] [place] [phone] 02/05/2025 12:45 PM CDT Appointment Department of Radiation Oncology in [address] [address] Kiana Oliver M.D. [address] [place] [phone] 02/05/2025 1:00 PM CDT Appointment Department of Radiation Oncology in [address] [address] Kiana Oliver M.D. [address] [place] [phone] 02/06/2025 1:00 PM CDT Appointment Department of Radiation Oncology in [address] [address] Kiana Oliver M.D. [address] [place] [phone] 02/09/2025 1:00 PM CDT Appointment Department of Radiation Oncology in [address] [address] Kiana Oliver M.D. [address] [place] [phone] 02/10/2025 1:00 PM CDT Appointment Department of Radiation Oncology in [address] [address] Kiana Oliver M.D. [address] [place] [phone] 02/11/2025 1:00 PM CDT Appointment Department of Radiation Oncology in [address] [address] Kiana Oliver M.D. [address] [place] [phone] 02/12/2025 1:00 PM CDT Appointment Department of Radiation Oncology in [address] [address] Kiana Oliver M.D. [address] [place] [phone] 02/12/2025 1:15 PM CDT Appointment Department of Radiation Oncology in [address] [address] Kiana Oliver M.D. [address] [place] [phone] 02/13/2025 1:00 PM CDT Appointment Department of Radiation Oncology in [place], [place] [address] [place] [phone] Kiana Oliver M.D. [address] [place] [phone] 02/16/2025 7:15 AM CDT Ancillary Procedure Department of Ophthalmology in [place], [place] [address] [place] [phone] Maida Tim O.D. [address] [place] [phone] 02/16/2025 8:00 AM CDT Comprehensive Visit Department of Ophthalmology in [place], [place] [address] [place] [phone] Desi Rasmussen O.D. [address] [place] [phone] 02/23/2025 8:15 AM CDT Clinical Communication Virtual Review in [place], [place] 200 [place] [address] 02/24/2025 9:40 AM CDT Office Visit Department of Dermatology in [place], [place] [address] [place] [phone] Felipe Stewart M.D. [address] [place] [phone] 02/24/2025 10:00 AM CDT Office Visit [facility] Trans[facility] and Clinical Regeneration in [place], [place] [address] [place] [phone] Aide Welch P.A.-C., M.S. [address] [place] [address] 03/03/2025 9:00 AM CDT Telemedicine Department of Nutrition and Diabetes Education in [place], [place] [address] [place] [phone] Katelin Alcaraz APRN C.N.P., D.N.P. [address] [place] [phone] Mansi Ross M.S., RDN, LD [address] [place] [phone] documented as of this encounter Visit Diagnoses Diagnosis Transplant Liver (HCC) Medication Therapy Fpc Not Anticoagulant documented in this encounter Additional Health Concerns Infection Onset Date Last Indicated Resolved Time Protective Environment 11/10/2023 11/10/2023 Assessment Noted Time PHQ-9 Depression Total Score: 19 025 12:23 PM HEADER DOCK documented as of this encounter Care Teams Intensive Care Medicine Specialist Relationship Specialty Start Date End Date Kelly Mendez APRN, C.N.P., D.N.P. [address] [place] [phone] PCP - General Internal Medicine 12/05/23 [place] [facility] Lab [place] mary Little [facility] lab Laboratory Medicine 02/26/23 documented as of this encounter
--- OUTSIDE RECORDS SUMMARY | 2025-02-03 00:04 | XMS_ITS | Encounter Summary ---
Author Organization [facility] Address [address] [place] [address] Care Team Providers Care Hide And Skin Fleshing Machine Operator Name Role Phone Andrea Kellylilia Buchanan APRN C.N.P., D.N.P. 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 200 [place] [address] Phone: tel: fax: [facility] Radiation Oncology at [place] [address] [place] [phone] Referral ID Status Reason Start Date Expiration Date V isits Requested Visits Authorized [id number] Authorized 12/22/2024 03/10/2026 15 30 Encounter Details Date Type Department Care Team (Late st Contact Info) Description 01/19/2025 12:24 PM PARTS CLASSIFIER Hospital Encounter Department of Radiation Oncology in [place], [place] [address] [place] [phone] Kiana Oliver M.D. [address] [place] [phone] Social History Tobacco Use Types Packs/Day Years Used Date Smoking Tobacco: Former Cigarettes Q uit: 2008 Passive Smoke Exposure: Never Smokeless Tobacco: Never Alcohol Use Standard Drinks/Week Comments Not Currently 0 (1 standard drink = 0.6 oz pur e alcohol) last 06/23/22 [facility] Utilities Answer Date Recorded In the [...] How often do you attend yarsanism or congregational serv ices? Patient declined 02/04/2023 [...] Date Recorded PHQ-2 Score 6 11/23/2024 [facility] - [...] AM CDT Legal Sex Male 9:11 PM PARTS CLASSIFIER Gender Identity na 09/07/2021 10:32 AM CDT Sexual Orientation Choose not to disclose 2020 10:32 AM CDT documented as of this encounter Plan of Treatment Upcoming Encounters Date Type Department Care Team (Latest Contact Info) Description 02/03/2025 1:00 PM CDT Appointment Department of Radiation Oncology in [address] [phone] Kiana Oliver M.D. [address] [place] [phone] 02/04/2025 1:00 PM CDT Appointment Department of Radiation Oncology in [address] [address] Kiana Oliver M.D. [address] [place] [phone] 02/05/2025 12:45 PM CDT Appointment Department of Radiation Oncology in [address] [address] Kiana Oliver M.D. [address] [place] [phone] 02/05/2025 1:00 PM CDT Appointment Department of Radiation Oncology in [address] [address] Kiana Oliver M.D. [address] [place] [phone] 02/06/2025 1:00 PM CDT Appointment Department of Radiation Oncology in [address] [address] Kiana Oliver M.D. [address] [place] [phone] 02/09/2025 1:00 PM CDT Appointment Department of Radiation Oncology in [place], [place] [address] [place] [phone] Kiana Oliver M.D. [address] [place] [phone] 02/10/2025 1:00 PM CDT Appointment Department of Radiation Oncology in [place], [place] [address] [place] [phone] Kiaan Oliver M.D. [address] [place] [phone] 02/11/2025 1:00 PM CDT Appointment Department of Radiation Oncology in [address] [phone] Kiana Oliver M.D. [address] [place] [phone] 02/12/2025 1:00 PM CDT Appointment Department of Radiation Oncology in [address] [address] Kiana Oliver M.D. [address] [place] [phone] 02/12/2025 1:15 PM CDT Appointment Department of Radiation Oncology in [address] [address] Kiana Oliver M.D. [address] [place] [phone] 02/13/2025 1:00 PM CDT Appointment Department of Radiation Oncology in [address] [address] Kiana Oliver M.D. [address] [place] [phone] 02/16/2025 7:15 AM CDT Ancillary Procedure Department of Ophthalmology in [place], [place] [address] [place] [phone] Maida Tim O.D. [address] [place] [phone] 02/16/2025 8:00 AM CDT Comprehensive Visit Department of Ophthalmology in [place], [place] [address] [place] [phone] Desi Rasmussen O.D. [address] [place] [phone] 02/23/2025 8:15 AM CDT Clinical Communication Virtual Review in [place], [place] 200 [place] [address] 02/24/2025 9:40 AM CDT Office Visit Department of Dermatology in [address] [address] Felipe Stewart M.D. [address] [place] [phone] 02/24/2025 10:00 AM CDT Office Visit Jeyson milan [facility] for Transplantation and Clinical Regeneration in [place], [place] [address] [place] [phone] Aide Welch P.A.Willie., M.S. [address] [place] [phone] 03/03/2025 9:00 AM CDT Telemedicine Department of Nutrition and Diabetes Education in [address] [phone] Katelin Alcaraz, MARCUS, C.N.P., D.N.P. [address] [place] [phone] Mansi Ross M.S., RDN, LD [address] [place] [address] documented as of this encounter Visit Diagnoses Not on filedocumented in this encounter Additional Health Concerns Infection Onset Date Last Indicated Resolved Time Protective Environment 11/10/2023 11/10/2023 Assessment Noted Time PHQ-9 Depression Total Score: 19 025 12:23 PM PARTS CLASSIFIER documented as of this encounter Care Teams Hide And Skin Fleshing Machine Operator Relationship Specialty Start Date End Date Kelly Mendez APRN, C.N.P., D.N.P. [address] [place] [phone] PCP - General Internal Medicine 12/05/23 [facility] Lab Myra or Anabel [facility] lab Laboratory Medicine 02/26/23 documented as of this encounter
--- OUTSIDE RECORDS SUMMARY | 2025-02-03 00:04 | XMS_ITS | Encounter Summary ---
Author Organization [facility] Address [address] [place] [address] Care Team Providers Care Reel Cutter Name Role Phone Kelly Mendez APRN C.N.PKathrin, D.N.P. Primary Car e Provider Reason for Referral * Outpatient (Routine) - Closed Specialty Diagnoses / Procedures Referred By Juanito ayala Referred To Contact Ophthalmology Diagnoses Dry Eye Syndrome Left Kiana Oliver M.D. 200 [place] [address] Phone: tel: fax: [facility] Referral ID Status Reason Start Date Expiration Date Visits Re quested Visits Authorized [id number] Closed 01/15/2025 07/17/2026 1 1 Scheduling Instructions I'm not sure if ocular oncology is the correct place for this consult? He doesn't have an eye cancer, but can have side effects from the radiation that will need monitoring during and then after radiation to prevent severe dry eye. AND BEVERAGE INTERN * Radiation Therapy (Routine) - Authorized Specialty Diagnoses / Procedures Referred By Juanito ayala Referred To Contact Diagnoses 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 Procedures Management Visit Kiana Oliver M.D. [address] [place] [address] Phone: tel: fax: [facility] Region Referral ID Status Reason Start Date Expiration Date V isits Requested Visits Authorized [id number] Authorized 12/08/2024 03/10/2026 10 10 AND BEVERAGE INTERN Reason for Visit * Radiation Therapy (Routine) - Authorized Specialty Diagnoses / Procedures Referred By Juanito ayala Referred To Contact Diagnoses 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 Procedures Management Visit Kiana Oliver M.D. [address] [place] [address] Phone: tel: fax: [facility] Referral ID Status Reason Start Date Expiration Date V isits Requested Visits Authorized [id number] Authorized 12/08/2024 03/10/2026 10 10 Encounter Details Date Type Department Care Team (Latest Contact Info) Description 01/15/2025 12:25 PM FOOD AND BEVERAGE INTERN - 01/15/2025 3:43 PM FOOD AND BEVERAGE INTERN Hospital Encounter Department of Radiation Oncology in [place], [place] [address] [place] [phone] Kiana Oliver M.D. [address] [place] [phone] Dry Eye Syndrome Left (Primary Dx); 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 Social History Tobacco Use Types Packs/Day Years Used Date Smoking Tobacco: Former Cigarettes Q uit: 2008 Passive Smoke Exposure: Never Smokeless Tobacco: Never Alcohol Use Standard Drinks/Week Comments Not Currently 0 (1 standard drink = 0.6 oz pur e alcohol) last 06/23/22 [facility] Utilities Answer Date Recorded In the past 12 months has e [employer], gas, oil, or water company threatened to [...] How often do you attend mosque or mormonism serv ices? Patient declined 02/04/2023 Do you [...] Answer Date Recorded PHQ-2 Score 6 11/23/2024 [facility] - Occupational [...] AM CDT Legal Sex Male 9:11 PM FOOD AND BEVERAGE INTERN Gender Identity na 09/07/2021 10:32 AM CDT Sexual Orientation Choose not to disclose 2020 10:32 AM CDT documented as of this encounter Last Filed Vital Signs Vital Sign Reading Time Taken Comments Blood Pressure 109/79 01/15/2025 1:00 PM FOOD AND BEVERAGE INTERN Pulse 108 01/15/2025 1:00 PM FOOD AND BEVERAGE INTERN Temperature - - Respiratory Rate - - [...] diabetes control. 1 each 12/12/2023 11:05 AM FOOD AND BEVERAGE INTERN 12/11/2023 calcium citrate-vitamin D3 (Citracal + D3) 315 mg-5 mcg (200 Unit) per tablet Take 1 tablet by mouth 2 (two) times a day with meals. 200 tablet 3 10/20/2024 10/20/20 25 famotidine (Pepcid) 20 mg tablet Take 1 tablet (20 mg total) by mouth 2 (two) times a day as needed for heartburn. 60 tablet 1 11/14/2024 12:18 PM FOOD AND BEVERAGE INTERN 11/14/2024 fluoride, sodium, (PreviDent) 1.1 % gel [...] daily. 90 tablet 3 10/29/2024 11:46 AM FOOD AND BEVERAGE INTERN 06/05/2024 gabapentin (NEURONTIN) 300 mg capsule Take 2 capsules (600 mg total) by mouth at bedtime. 04/07/2024 HYDROcodone-acetami nophen ([place]) 7.5-325 mg per tabletIndications:C hronic Pain/Nonacute Pain [...] 911. 15 mL 2 11/14/2024 12:18 PM FOOD AND BEVERAGE INTERN 11/14/2024 ondansetron ODT (Zofran-ODT) 4 mg disintegrating tablet Dissolve 1 tablet (4 mg total) in the mouth every 8 (eight) hours as needed for nausea or vomiting. 30 tablet 3 11/26/2024 3:29 PM FOOD AND BEVERAGE INTERN 06/05/2024 pen needle, diabetic (BD Ultra-Fine Short Pen Needle) 31 gauge x 5/16 needle Use 3 times a day 300 each 1 11/14/2024 12:18 PM FOOD AND BEVERAGE INTERN 11/14/2024 rOPINIRole (Requip) 0.25 mg tabletIndications:R estless Leg Syndrome Take 2 tablets (0.5 mg total) by mouth at bedtime as needed (RLS). 30 tablet 11/26/2024 3:29 PM FOOD AND BEVERAGE INTERN 11/13/2024 rosuvastatin (Crestor) 5 mg tablet Take 1 tablet (5 mg total) by mouth daily. 90 tablet 3 12/29/2024 1:25 PM FOOD AND BEVERAGE INTERN 06/05/2024 sennosides-docusate sodium (Stool Softener-Stimulant Laxat) 8.6-50 mg per tabletIndications:T ransplant Liver (HCC),Medication Therapy Correction Not Anticoagulant,Drug Induced Constipation Take 1 tablet by mouth 2 (two) times a day. 100 tablet 02/22/2024 5:09 PM CDT 02/22/2024 tacrolimus (Prograf) 1 mg capsuleIndications: Transplant Liver (HCC),Medication Therapy Forensic Medical Examiner Not Anticoagulant Take 2 capsules (2 mg total) by mouth 2 (two) times a day. 01/01 dose change 360 capsule 3 01/01/2025 01/01/20 26 blood-glucose sensor (FreeStyle Apryl 3 Sensor) deviceIndications:D iabetes Mellitus Type 2 Hyperglycemia (HCC) 1 each every 14 (fourteen) days. 6 each 3 11/26/2024 3:29 PM FOOD AND BEVERAGE INTERN 09/04/2024 01/29/20 25 insulin glargine 100 unit/mL [...] weekly. I willsend him to Ophthalmology in [place] to help us manage any eye symptoms [...] (cGy) First Treatment Last Treatment Elapsed Days [id number] [phone] 01/05/2025 01/15/2025 10 Course [...] by: Rylee Barrios R.N. 01/15/2025 1:06 PM FOOD AND BEVERAGE INTERN AND BEVERAGE INTERN documented in this encounter Plan of Treatment Upcoming Encounters Date Type Department Care Team (Latest Contact Info) Description 02/03/2025 1:00 PM CDT Appointment Department of Radiation Oncology in [address] [address] Kiana Oliver M.D. [address] [place] [phone] 02/04/2025 1:00 PM CDT Appointment Department of Radiation Oncology in [address] [phone] Kiana Oliver M.D. [address] [place] [phone] 02/05/2025 12:45 PM CDT Appointment Department of Radiation Oncology in [address] [phone] Kiana Oliver M.D. [address] [place] [phone] 02/05/2025 1:00 PM CDT Appointment Department of Radiation Oncology in [address] [phone] Kiana Oliver M.D. [address] [place] [phone] 02/06/2025 1:00 PM CDT Appointment Department of Radiation Oncology in [address] [address] Kiana Oliver M.D. [address] [place] [phone] 02/09/2025 1:00 PM CDT Appointment Department of Radiation Oncology in [address] [place] [address] Kiana Oliver M.D. [address] [place] [phone] 02/10/2025 1:00 PM CDT Appointment Department of Radiation Oncology in [place], [place] [address] [place] [phone] Kiana lOiver M.D. [address] [place] [phone] 02/11/2025 1:00 PM CDT Appointment Department of Radiation Oncology in [address] [address] Kiana Oliver M.D. [address] [place] [phone] 02/12/2025 1:00 PM CDT Appointment Department of Radiation Oncology in [place], [place] [address] [place] [phone] Kiana Oliver M.D. [address] [place] [phone] 02/12/2025 1:15 PM CDT Appointment Department of Radiation Oncology in [place], [place] [address] [place] [phone] Kiana Oliver M.D. [address] [place] [phone] 02/13/2025 1:00 PM CDT Appointment Department of Radiation Oncology in [address] [address] Kiana Oliver M.D. [address] [place] [phone] 02/16/2025 7:15 AM CDT Ancillary Procedure Department of Ophthalmology in [place], [place] [address] [place] [phone] Maida Tim O.D. [address] [place] [phone] 02/16/2025 8:00 AM CDT Comprehensive Visit Department of Ophthalmology in [place], [place] [address] [place] [phone] Desi Rasmussen O.D. [address] [place] [phone] 02/23/2025 8:15 AM CDT Clinical Communication Virtual Review in [address] [phone] 02/24/2025 9:40 AM CDT Office Visit Department of Dermatology in [address] [address] Felipe Stewart M.D. [address] [place] [phone] 02/24/2025 10:00 AM CDT Office Visit Jeyson [facility] and Clinical Regeneration in [place], [place] [address] [place] [phone] Aide Welch, PKeven.-C., M.S. [address] [place] [phone] 03/03/2025 9:00 AM CDT Telemedicine Department of Nutrition and Diabetes Education in [address] [address] Katelin Alcaraz APRN, C.N.P., D.N.P. [address] [place] [phone] Mansi Ross M.S., RDN, LD [address] [place] [address] Scheduled Orders Name Type Priority Associated Diagnoses [...] Depression Total Score: 19 025 12:23 PM FOOD AND BEVERAGE INTERN documented as of this encounter Care Teams Reel Cutter Relationship Specialty Start Date End Date Kelly Mendez APRN, C.N.P., D.N.P. [address] [place] [address] PCP - General Internal Medicine 12/05/23 [facility] [place] or [facility]abel [facility] lab Laboratory Medicine 02/26/23 documented as of this encounter
--- OUTSIDE RECORDS SUMMARY | 2025-02-03 00:04 | XMS_ITS | Encounter Summary ---
Author Organization [facility] Address [address] [place] [address] Care Team Providers Care Tandem Operator Name Role Phone AndreaKelly Chanel VELAZQUEZ, C.N.P., D.N.P. Primary Car e Provider Reason for Referral * Outpatient (Routine) - Authorized Specialty Diagnoses / Procedures Referred By Contac t Referred To Contact Katelin Rojas APRN, C.N.P., D.N.P. [address] [place] [address] Phone: tel: fax: [facility] Referral ID Status Reason Start Date Expiration Date V isits Requested Visits Authorized [id number] Authorized 01/15/2025 07/17/2026 1 1 [place] STORE CLERK Reason for Visit * Outpatient (Routine) - Closed Specialty Diagnoses / Procedures Referred By Contac t Referred To Contact Katelin Rojas APRN, C.N.P., D.N.P. [address] [place] [address] Phone: tel: fax: [facility] Referral ID Status Reason Start Date Expiration Date Visits Re quested Visits Authorized [id number] Closed 01/08/2025 07/10/2026 1 1 Encounter Details Date Type Department Care Team (Late st Contact Info) Description 01/15/2025 11:00 AM RETAIL STORE CLERK Telemedicine Department of Nutrition and Diabetes Education in [place], [place] [address] [place] [address] Katelin Alcaraz, CLINICAL COURIER, C.N.P., D.N.P. [address] [place] [phone] Mansi Ross M.S., RDN, LD [address] [place] [phone] Malnutrition Severe Protein-Calorie (HCC) (Primary Dx); Abdominal Pain Social History Tobacco Use Types Packs/Day Years Used Date Smoking Tobacco: Former Cigarettes Q uit: 2008 Passive Smoke Exposure: Never Smokeless Tobacco: Never Alcohol Use Standard Drinks/Week Comments Not Currently 0 (1 standard drink = 0.6 oz pur e alcohol) last 06/23/22 [facility] Utilities Answer Date Recorded In the past 12 months has e [employer], gas, oil, or water [employer] threatened to shut off services in your [...] How often do you attend sikh or episcopalian serv ices? 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 Pertinent Labs 11/11/24: HbA1C - 6.8 They report low BGs over night (down to 67 last night), then eats candy (14-16 units of long-lasting insulin in the morning). Nutrition Focused Physical Findings: Chewing/Swallowing: okay Nausea/Vomiting: reports nausea only with tube feeds. No episode of nausea or vomiting with oral intake. Tube Information 14 Occitan balloon gastrostomy placed by IR 11/13/2024 Food/Nutrient [...] Enteral Intake: Received the Peptamen 1.5 from [employer], however, continues to have nausea. Report on Sunday gave 4 oz of the tube feeds over 30 minutes and was bloated and nausea and did not eat much for the rest of the day. - Report feels a little better than the Chicory but still feels terrible on the tube feeds. Water Flushes: 60 mL daily Weight History 06/27/24: 45.2 kg 10/09/24: 46.2 kg 11/14/24: 45.2 kg 11/25/24: 47.1 kg 12/11/24: 45.9 kg 12/12/24: 45.8 kg (home scale) 01/15/25 : 46.3 kg ( home scale) Trending up on his home scale Estimation of Nutritional Needs Calories: 6009-7498 kcals/day (30-35 kcal/kg at a minimum, may need closer to 40 kcal/kg to gain) Protein: 55 grams/day (1.2 gram/kg) Fluid: 4294-0850 mL/day (30-35 mL/kg) Assessment Summary Killian has [...] that will provide needed supplies for home: [employer] Nutrition parameter to monitor: Weight Desired Outcome: Gain, minimum safe weight for BMI of 18.5 is 51.5 kg Patient Goal(s): 1. Incorporate oral nutrition supplement daily 2. Incorporate a source of protein with eat meal and snack. Follow-up Plan Patient is followed in [facility]: Discussed with provider 4-6 weeks via video visit. Question, doing well on oral or with next tube exchange evaluate for jejunal extension. Time spent with patient (minutes): 27 [place] STORE CLERK documented in this encounter Plan of Treatment Upcoming Encounters Date Type Department Care Team (Latest Contact Info) Description 02/03/2025 1:00 PM CDT Appointment Department of Radiation Oncology in [place], [place] [address] [place] [phone] Kiana Oliver M.D. [address] [place] [address] 02/04/2025 1:00 PM CDT Appointment Department of Radiation Oncology in [place], [place] [address] [place] [phone] Kiana Oliver M.D. [address] [place] [phone] 02/05/2025 12:45 PM CDT Appointment Department of Radiation Oncology in [place], [place] [address] [place] [address] Kiana Oliver M.D. [address] [place] [phone] 02/05/2025 1:00 PM CDT Appointment Department of Radiation Oncology in [address] [phone] Kiana Oliver M.D. [address] [place] [phone] 02/06/2025 1:00 PM CDT Appointment Department of Radiation Oncology in [place], [place] [address] [place] [address] Kiana Oliver M.D. [address] [place] [phone] 02/09/2025 1:00 PM CDT Appointment Department of Radiation Oncology in [place], [place] [address] [place] [phone] Kiana Oliver M.D. [address] [place] [phone] 02/10/2025 1:00 PM CDT Appointment Department of Radiation Oncology in [address] [phone] Kiana Oliver M.D. [address] [place] [phone] 02/11/2025 1:00 PM CDT Appointment Department of Radiation Oncology in [place], [place] [address] [place] [address] Kiana Oliver M.D. [address] [place] [phone] 02/12/2025 1:00 PM CDT Appointment Department of Radiation Oncology in [place], [place] [address] [place] [address] Kiana Oliver M.D. [address] [place] [phone] 02/12/2025 1:15 PM CDT Appointment Department of Radiation Oncology in [place], [place] [address] [place] [address] Kiana Oliver M.D. [address] [place] [phone] 02/13/2025 1:00 PM CDT Appointment Department of Radiation Oncology in [place], [place] [address] [place] [address] Kiana Oliver M.D. [address] [place] [phone] 02/16/2025 7:15 AM CDT Ancillary Procedure Department of Ophthalmology in [place], [place] [address] [place] [phone] Maida Tim O.D. [address] [place] [phone] 02/16/2025 8:00 AM CDT Comprehensive Visit Department of Ophthalmology in [place], [place] [address] [place] [phone] Desi Rasmussen O.D. [address] [place] [phone] 02/23/2025 8:15 AM CDT Clinical Communication Virtual Review in [place], [place] [address] [place] [phone] 02/24/2025 9:40 AM CDT Office Visit Department of Dermatology in [place], [place] [address] [place] [phone] Felipe Stewart M.D. [address] [place] [phone] 02/24/2025 10:00 AM CDT Office Visit Jeyson Kevin [facility] for Transplantation and Clinical Regeneration in [place], [place] [address] [place] [phone] Aide Welch P.A.-C., M.S. [address] [place] [phone] 03/03/2025 9:00 AM CDT Telemedicine Department of Nutrition and Diabetes Education in [address] [phone] Katelin Alcaraz APRN, C.N.P., D.N.P. [address] [place] [phone] Mansi Ross M.S., RDN, LD [address] [place] [phone] Scheduled Referrals Name Type Priority Associated Diagnoses [...] Depression Total Score: 19 025 12:23 PM RETAIL STORE CLERK documented as of this encounter Care Teams Tandem Operator Relationship Specialty Start Date End Date Kelly Mendez APRN, C.N.P., D.N.P. [address] [place] [address] PCP - General Internal Medicine 12/05/23 Rhea [facility] Lab [place] or Anabel [facility] lab Laboratory Medicine 02/26/23 documented as of this encounter
--- OUTSIDE RECORDS SUMMARY | 2025-02-03 00:04 | XMS_ITS | Encounter Summary ---
Author Organization [facility] Address [address] [place] [address] Care Team Providers Care Director Foundation Name Role Phone Kelly Mendez APRN C.N.P., D.N.P. 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 [address] [place] [address] Phone: tel: fax: [facility] Radiation Oncology at [place] [address] [place] [phone] Referral ID Status Reason Start Date Expiration Date V isits Requested Visits Authorized [id number] Authorized 12/22/2024 03/10/2026 15 30 Encounter Details Date Type Department Care Team (Late st Contact Info) Description 01/15/2025 12:25 PM LOT ATTENDANT Hospital Encounter Department of Radiation Oncology in [address] [phone] Kiana Oliver M.D. [address] [place] [phone] Social History Tobacco Use Types Packs/Day Years Used Date Smoking Tobacco: Former Cigarettes Q uit: 2008 Passive Smoke Exposure: Never Smokeless Tobacco: Never Alcohol Use Standard Drinks/Week Comments Not Currently 0 (1 standard drink = 0.6 oz pur e alcohol) last 06/23/22 [facility] Utilities Answer Date Recorded In the past [...] How often do you attend anabaptist or methodist serv ices? Patient declined 02/04/2023 Do you [...] AM CDT Legal Sex Male 9:11 PM LOT ATTENDANT Gender Identity na 09/07/2021 10:32 AM CDT Sexual Orientation Choose not to disclose 2020 10:32 AM CDT documented as of this encounter Plan of Treatment Upcoming Encounters Date Type Department Care Team (Latest Contact Info) Description 02/03/2025 1:00 PM CDT Appointment Department of Radiation Oncology in [address] [address] Kiana Oliver M.D. [address] [place] [phone] 02/04/2025 1:00 PM CDT Appointment Department of Radiation Oncology in [address] [phone] Kiana Oliver M.D. [address] [place] [phone] 02/05/2025 12:45 PM CDT Appointment Department of Radiation Oncology in [address] [phone] Kiana Oliver M.D. [address] [place] [phone] 02/05/2025 1:00 PM CDT Appointment Department of Radiation Oncology in [address] [address] Kiana Oliver M.D. [address] [place] [phone] 02/06/2025 1:00 PM CDT Appointment Department of Radiation Oncology in [address] [address] Kiana Oliver M.D. [address] [place] [phone] 02/09/2025 1:00 PM CDT Appointment Department of Radiation Oncology in [place], [place] [address] [place] [phone] Kiana Oliver M.D. [address] [place] [phone] 02/10/2025 1:00 PM CDT Appointment Department of Radiation Oncology in [place], [place] [address] [place] [phone] Kiana Oliver M.D. [address] [place] [phone] 02/11/2025 1:00 PM CDT Appointment Department of Radiation Oncology in [address] [phone] Kiana Oliver M.D. [address] [place] [phone] 02/12/2025 1:00 PM CDT Appointment Department of Radiation Oncology in [address] [address] Kiana Oliver M.D. [address] [place] [phone] 02/12/2025 1:15 PM CDT Appointment Department of Radiation Oncology in [address] [phone] Kiana Oliver M.D. [address] [place] [phone] 02/13/2025 1:00 PM CDT Appointment Department of Radiation Oncology in [address] [address] Kiana Oliver M.D. [address] [place] [phone] 02/16/2025 7:15 AM CDT Ancillary Procedure Department of Ophthalmology in [place], [place] [address] [place] [phone] Maida Tim O.D. [address] [place] [phone] 02/16/2025 8:00 AM CDT Comprehensive Visit Department of Ophthalmology in [place], [place] [address] [place] [phone] Desi Rasmussen O.D. [address] [place] [phone] 02/23/2025 8:15 AM CDT Clinical Communication Virtual Review in [place], [place] 200 [place] [address] 02/24/2025 9:40 AM CDT Office Visit Department of Dermatology in [address] [phone] Felipe Stewart M.D. [address] [place] [phone] 02/24/2025 10:00 AM CDT Office Visit Jeyson milan [facility] for Transplantation and Clinical Regeneration in [place], [place] [address] [place] [phone] Aide Welch P.A.Willie., M.S. [address] [place] [phone] 03/03/2025 9:00 AM CDT Telemedicine Department of Nutrition and Diabetes Education in [address] [phone] Katelin Alcaraz, MARCUS, C.N.P., D.N.P. [address] [place] [phone] Mansi Ross M.S., RDN, LD [address] [place] [address] documented as of this encounter Visit Diagnoses Not on filedocumented in this encounter Additional Health Concerns Infection Onset Date Last Indicated Resolved Time Protective Environment 11/10/2023 11/10/2023 Assessment Noted Time PHQ-9 Depression Total Score: 19 025 12:23 PM LOT ATTENDANT documented as of this encounter Care Teams Director Foundation Relationship Specialty Start Date End Date Kelly Mendez APRN, C.N.P., D.N.P. [address] [place] [phone] PCP - General Internal Medicine 12/05/23 [facility] [place] or [place]abel [facility] lab Laboratory Medicine 02/26/23 documented as of this encounter
--- OUTSIDE RECORDS SUMMARY | 2025-02-03 00:04 | XMS_ITS | Encounter Summary ---
Author Organization [facility] Address [address] [place] [address] Care Team Providers Care Abstract Checker Name Role Phone Andrea Kellylilia Buchanan APRN C.N.PKathrin, D.N.P. Primary Car e Provider Reason for Referral * Specialty Diagnoses / Procedures Referred By Juanito t Referred To Contact Diagnoses 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 Kiana Oliver M.D. [address] [place] [address] Phone: tel: fax: [facility] Region Referral ID Status Reason Start Date Expiration Date Visits Re quested Visits Authorized Scheduling Instructions Please do not schedule if patient is receiving 10 fractions or less, unless requested by care team. ICAL THERAPIST CLINIC DIRECTOR Encounter Details Date Type Department Care Team (Latest Contact Info) Description 01/14/2025 12:31 PM PHYSICAL THERAPIST CLINIC DIRECTOR - 01/14/2025 1:35 PM PHYSICAL THERAPIST CLINIC DIRECTOR Hospital Encounter Department of Radiation Oncology in [place], [place] [address] [place] [phone] Kiana Oliver M.D. [address] [place] [phone] Herminio Barcenas R.N. 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 Social History Tobacco Use Types Packs/Day Years Used Date Smoking Tobacco: Former Cigarettes Q uit: 2008 Passive Smoke Exposure: Never Smokeless Tobacco: Never Alcohol Use Standard Drinks/Week Comments Not Currently 0 (1 standard drink = 0.6 oz pur e alcohol) last 06/23/22 [facility] Utilities Answer Date Recorded In the past 12 months has e [employer], [employer], oil, or water [employer] threatened to shut off services in your [...] How often do you attend lutheran or anglican serv ices? Patient declined 02/04/2023 [...] [facility] of Occupat ional [facility] - Occupational Stress Questionnaire Answer Date [...] AM CDT Legal Sex Male 9:11 PM PHYSICAL THERAPIST CLINIC DIRECTOR Gender Identity na 09/07/2021 10:32 AM [...] diabetes control. 1 each 12/12/2023 11:05 AM PHYSICAL THERAPIST CLINIC DIRECTOR 12/11/2023 calcium citrate-vitamin D3 (Citracal + D3) 315 mg-5 mcg (200 Unit) per tablet Take 1 tablet by mouth 2 (two) times a day with meals. 200 tablet 3 10/20/2024 10/20/20 25 famotidine (Pepcid) 20 mg tablet Take 1 tablet (20 mg total) by mouth 2 (two) times a day as needed for heartburn. 60 tablet 1 11/14/2024 12:18 PM PHYSICAL THERAPIST CLINIC DIRECTOR 11/14/2024 fluoride, sodium, (PreviDent) 1.1 % gel [...] daily. 90 tablet 3 10/29/2024 11:46 AM PHYSICAL THERAPIST CLINIC DIRECTOR 06/05/2024 gabapentin (NEURONTIN) 300 mg capsule Take 2 capsules (600 mg total) by mouth at bedtime. 04/07/2024 HYDROcodone-acetami nophen (Caspian) 7.5-325 mg per tabletIndications:C hronic Pain/Nonacute Pain [...] 911. 15 mL 2 11/14/2024 12:18 PM PHYSICAL THERAPIST CLINIC DIRECTOR 11/14/2024 ondansetron ODT (Zofran-ODT) 4 mg disintegrating tablet Dissolve 1 tablet (4 mg total) in the mouth every 8 (eight) hours as needed for nausea or vomiting. 30 tablet 3 11/26/2024 3:29 PM PHYSICAL THERAPIST CLINIC DIRECTOR 06/05/2024 pen needle, diabetic (BD Ultra-Fine Short Pen Needle) 31 gauge x 5/16 needle Use 3 times a day 300 each 1 11/14/2024 12:18 PM PHYSICAL THERAPIST CLINIC DIRECTOR 11/14/2024 rOPINIRole (Requip) 0.25 mg tabletIndications:R estless Leg Syndrome Take 2 tablets (0.5 mg total) by mouth at bedtime as needed (RLS). 30 tablet 11/26/2024 3:29 PM PHYSICAL THERAPIST CLINIC DIRECTOR 11/13/2024 rosuvastatin (Crestor) 5 mg tablet Take 1 tablet (5 mg total) by mouth daily. 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 100 tablet 02/22/2024 5:09 PM CDT 02/22/2024 tacrolimus (Prograf) 1 mg capsuleIndications: Transplant Liver (HCC),Medication Therapy [facility] Not Anticoagulant Take 2 capsules (2 mg total) by mouth 2 (two) times a day. 01/01 dose change 360 capsule 3 01/01/2025 01/01/20 26 blood-glucose sensor (FreeStyle Apryl 3 Sensor) deviceIndications:D iabetes Mellitus Type 2 Hyperglycemia (HCC) 1 each every 14 (fourteen) days. 6 each 3 11/26/2024 3:29 PM PHYSICAL THERAPIST CLINIC DIRECTOR 09/04/2024 01/29/20 25 insulin glargine 100 unit/mL [...] at any point, with questions or concerns. ICAL THERAPIST CLINIC DIRECTOR documented in this encounter Plan of Treatment Upcoming Encounters Date Type Department Care Team (Latest Contact Info) Description 02/03/2025 1:00 PM CDT Appointment Department of Radiation Oncology in [address] [phone] Kiana Oliver M.D. [address] [place] [phone] 02/04/2025 1:00 PM CDT Appointment Department of Radiation Oncology in [place], [place] [address] [place] [phone] Kiana Oliver M.D. [address] [place] [phone] 02/05/2025 12:45 PM CDT Appointment Department of Radiation Oncology in [address] [phone] Kiana Oliver M.D. [address] [place] [phone] 02/05/2025 1:00 PM CDT Appointment Department of Radiation Oncology in [place], [place] [address] [place] [phone] Kiana Oliver M.D. [address] [place] [phone] 02/06/2025 1:00 PM CDT Appointment Department of Radiation Oncology in [address] [address] Kiana Oliver M.D. [address] [place] [phone] 02/09/2025 1:00 PM CDT Appointment Department of Radiation Oncology in [address] [phone] Kiana Oliver M.D. [address] [place] [phone] 02/10/2025 1:00 PM CDT Appointment Department of Radiation Oncology in [place], [place] [address] [place] [phone] Kiana Oliver M.D. [address] [place] [phone] 02/11/2025 1:00 PM CDT Appointment Department of Radiation Oncology in [place], [place] [address] [place] [phone] Kiana Oliver M.D. [address] [place] [phone] 02/12/2025 1:00 PM CDT Appointment Department of Radiation Oncology in [address] [phone] Kiana Oliver M.D. [address] [place] [phone] 02/12/2025 1:15 PM CDT Appointment Department of Radiation Oncology in [place], [place] [address] [place] [address] Kiana Oliver M.D. [address] [place] [phone] 02/13/2025 1:00 PM CDT Appointment Department of Radiation Oncology in [place], [place] [address] [place] [phone] Kiana Oliver M.D. [address] [place] [phone] 02/16/2025 7:15 AM CDT Ancillary Procedure Department of Ophthalmology in [place], [place] [address] [place] [phone] Maida Tim O.D. [address] [place] [phone] 02/16/2025 8:00 AM CDT Comprehensive Visit Department of Ophthalmology in [place], [place] [address] [place] [phone] Desi Rasmussen O.D. [address] [place] [phone] 02/23/2025 8:15 AM CDT Clinical Communication Virtual Review in [place], [place] [address] [place] [address] 02/24/2025 9:40 AM CDT Office Visit Department of Dermatology in [address] [phone] Felipe Stewart M.D. [address] [place] [phone] 02/24/2025 10:00 AM CDT Office Visit [facility] in [address] [address] Aide Welch PGina., M.S. [address] [place] [phone] 03/03/2025 9:00 AM CDT Telemedicine Department of Nutrition and Diabetes Education in [address] [phone] Katelin Alcaraz APRN, C.N.P., D.N.P. [address] [place] [phone] Mansi Ross M.S., RDN, LD [address] [place] [phone] Scheduled Referrals Name Type Priority Associated Diagnoses [...] Depression Total Score: 19 025 12:23 PM PHYSICAL THERAPIST CLINIC DIRECTOR documented as of this encounter Care Teams Abstract Checker Relationship Specialty Start Date End Date Kelly Mendez APRN, C.N.P., D.N.P. [address] [place] [address] PCP - General Internal Medicine 12/05/23 Rhea [facility] Lab [place] or Anabel [facility] lab Laboratory Medicine 02/26/23 documented as of this encounter
--- OUTSIDE RECORDS SUMMARY | 2025-02-03 00:05 | XMS_ITS | Encounter Summary ---
Author Organization [facility] Address [address] [place] [address] Care Team Providers Care Buffer Automatic Name Role Phone Kelly Mendez APRN C.N.P., D.N.P. Primary Car e Provider Reason for Visit * Radiation Therapy (Routine) - Authorized Specialty Diagnoses / Procedures Referred By Juanito ayala Referred To Contact Diagnoses 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 Procedures Prior Auth Rad Tx [place] IMRT COMPLEX [place] GUIDANCE FOR LOC RAD TX [place] IMRT RADIOTHERAPY PLAN IMRT Kiana Oliver M.D. 200 [place] [address] Phone: tel: fax: [facility] Radiation Oncology at [place] [address] [place] [phone] Referral ID Status Reason Start Date Expiration Date V isits Requested Visits Authorized [id number] Authorized 12/22/2024 03/10/2026 15 30 Encounter Details Date Type Department Care Team (Late st Contact Info) Description 01/13/2025 12:13 PM REGISTERED NURSE [facility]IORAL [facility] Hospital Encounter Department of Radiation Oncology in [address] [phone] Kiana Oliver M.D. [address] [place] [phone] Social History Tobacco Use Types Packs/Day Years Used Date Smoking Tobacco: Former Cigarettes Q uit: 2008 Passive Smoke Exposure: Never Smokeless Tobacco: Never Alcohol Use Standard Drinks/Week Comments Not Currently 0 (1 standard drink = 0.6 oz pur e alcohol) last 06/23/22 [facility] Utilities Answer Date Recorded In the [...] How often do you attend scientologist or orthodoxy serv ices? Patient declined 02/04/2023 [...] Date Recorded PHQ-2 Score 6 11/23/2024 [facility] - Occupational [...] AM CDT Legal Sex Male 9:11 PM REGISTERED NURSE BEHAVIORAL HE[facility] Gender Identity na 09/07/2021 10:32 AM CDT Sexual Orientation Choose not to disclose 2020 10:32 AM CDT documented as of this encounter Plan of Treatment Upcoming Encounters Date Type Department Care Team (Latest Contact Info) Description 02/03/2025 1:00 PM CDT Appointment Department of Radiation Oncology in [address] [address] Kiana Oliver M.D. [address] [place] [phone] 02/04/2025 1:00 PM CDT Appointment Department of Radiation Oncology in [address] [address] Kiana Oliver M.D. [address] [place] [phone] 02/05/2025 12:45 PM CDT Appointment Department of Radiation Oncology in [address] [address] Kiana Oliver M.D. [address] [place] [phone] 02/05/2025 1:00 PM CDT Appointment Department of Radiation Oncology in [address] [address] Kiana Oliver M.D. [address] [place] [phone] 02/06/2025 1:00 PM CDT Appointment Department of Radiation Oncology in [address] [address] Kiana Oliver M.D. [address] [place] [phone] 02/09/2025 1:00 PM CDT Appointment Department of Radiation Oncology in [place], [place] [address] [place] [phone] Kiana Oliver M.D. [address] [place] [phone] 02/10/2025 1:00 PM CDT Appointment Department of Radiation Oncology in [place], [place] [address] [place] [phone] Kiana Oliver M.D. [address] [place] [phone] 02/11/2025 1:00 PM CDT Appointment Department of Radiation Oncology in [address] [address] Kiana Oliver M.D. [address] [place] [phone] 02/12/2025 1:00 PM CDT Appointment Department of Radiation Oncology in [address] [address] Kiana Oliver M.D. [address] [place] [phone] 02/12/2025 1:15 PM CDT Appointment Department of Radiation Oncology in [address] [address] Kiana Oliver M.D. [address] [place] [phone] 02/13/2025 1:00 PM CDT Appointment Department of Radiation Oncology in [address] [address] Kiana Oliver M.D. [address] [place] [phone] 02/16/2025 7:15 AM CDT Ancillary Procedure Department of Ophthalmology in [place], [place] [address] [place] [phone] Maida Tim O.D. [address] [place] [phone] 02/16/2025 8:00 AM CDT Comprehensive Visit Department of Ophthalmology in [place], [place] [address] [place] [phone] Desi Rasmussen O.D. [address] [place] [phone] 02/23/2025 8:15 AM CDT Clinical Communication Virtual Review in [place], [place] 200 [place] [address] 02/24/2025 9:40 AM CDT Office Visit Department of Dermatology in [address] [address] Felipe Stewart M.D. [address] [place] [phone] 02/24/2025 10:00 AM CDT Office Visit Jeyson milan [facility] for Transplantation and Clinical Regeneration in [place], [place] [address] [place] [phone] Aide Welch P.A.Willie., M.S. [address] [place] [phone] 03/03/2025 9:00 AM CDT Telemedicine Department of Nutrition and Diabetes Education in [address] [address] Katelin Alcaraz, MARCUS, C.N.P., D.N.P. [address] [place] [phone] Mansi Ross M.S., RDN, LD [address] [place] [address] documented as of this encounter Visit Diagnoses Not on filedocumented in this encounter Additional Health Concerns Infection Onset Date Last Indicated Resolved Time Protective Environment 11/10/2023 11/10/2023 Assessment Noted Time PHQ-9 Depression Total Score: 19 025 12:23 PM REGISTERED NURSE BEH[facility]IORAL HE[facility] documented as of this encounter Care Teams Buffer Automatic Relationship Specialty Start Date End Date Kelly Mendez APRN, C.N.P., D.N.P. [address] [place] [phone] PCP - General Internal Medicine 12/05/23 [facility] [place] or Anabel [facility] lab Laboratory Medicine 02/26/23 documented as of this encounter
--- OUTSIDE RECORDS SUMMARY | 2025-02-03 00:05 | XMS_ITS | Encounter Summary ---
Author Organization [facility] Address [address] [place] [address] Care Team Providers Care Enamel Sprayer Name Role Phone Kelly Mendez APRN C.N.P., D.N.P. Primary Car e Provider Reason for Visit * Radiation Therapy (Routine) - Authorized Specialty Diagnoses / Procedures Referred By Juanito ayala Referred To Contact Diagnoses 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 Procedures Prior Auth Rad Tx [place] IMRT COMPLEX [place] GUIDANCE FOR LOC RAD [place] IMRT RADIOTHERAPY PLAN IMRT Kiana Oliver M.D. 200 [place] [address] Phone: tel: fax: [facility] Radiation Oncology at [place] [address] [place] [phone] Referral ID Status Reason Start Date Expiration Date V isits Requested Visits Authorized [id number] Authorized 12/22/2024 03/10/2026 15 30 Encounter Details Date Type Department Care Team (Late st Contact Info) Description 01/14/2025 12:26 PM SIGN MAINTENANCE Hospital Encounter Department of Radiation Oncology in [address] [phone] Kiana Oliver M.D. [address] [place] [phone] Social History Tobacco Use Types Packs/Day Years Used Date Smoking Tobacco: Former Cigarettes Q uit: 2008 Passive Smoke Exposure: Never Smokeless Tobacco: Never Alcohol Use Standard Drinks/Week Comments Not Currently 0 (1 standard drink = 0.6 oz pur e alcohol) last 06/23/22 [facility] Utilities Answer Date Recorded [...] week 02/04/2023 How often do you attend shinto or adventist serv ices? Patient declined 02/04/2023 Do you belong to any clubs o r organizations such as shinto groups, unions, fraternal or athletic groups, or [...] AM CDT Legal Sex Male 9:11 PM SIGN MAINTENANCE Gender Identity na 09/07/2021 10:32 AM CDT Sexual Orientation Choose not to disclose 2020 10:32 AM CDT documented as of this encounter Plan of Treatment Upcoming Encounters Date Type Department Care Team (Latest Contact Info) Description 02/03/2025 1:00 PM CDT Appointment Department of Radiation Oncology in [address] [address] Kiana Oliver M.D. [address] [place] [phone] 02/04/2025 1:00 PM CDT Appointment Department of Radiation Oncology in [address] [address] Kiana Oliver M.D. [address] [place] [phone] 02/05/2025 12:45 PM CDT Appointment Department of Radiation Oncology in [address] [address] Kiana Oliver M.D. [address] [place] [phone] 02/05/2025 1:00 PM CDT Appointment Department of Radiation Oncology in [address] [address] Kiana Oliver M.D. [address] [place] [phone] 02/06/2025 1:00 PM CDT Appointment Department of Radiation Oncology in [address] [address] Kiana Oliver M.D. [address] [place] [phone] 02/09/2025 1:00 PM CDT Appointment Department of Radiation Oncology in [place], [place] [address] [place] [phone] Kiana Oliver M.D. [address] [place] [phone] 02/10/2025 1:00 PM CDT Appointment Department of Radiation Oncology in [place], [place] [address] [place] [phone] Kiana Oliver M.D. [address] [place] [phone] 02/11/2025 1:00 PM CDT Appointment Department of Radiation Oncology in [address] [address] Kiana Oliver M.D. [address] [place] [phone] 02/12/2025 1:00 PM CDT Appointment Department of Radiation Oncology in [address] [address] Kiana Oliver M.D. [address] [place] [phone] 02/12/2025 1:15 PM CDT Appointment Department of Radiation Oncology in [address] [address] Kiana Oliver M.D. [address] [place] [phone] 02/13/2025 1:00 PM CDT Appointment Department of Radiation Oncology in [address] [address] Kiana Oliver M.D. [address] [place] [phone] 02/16/2025 7:15 AM CDT Ancillary Procedure Department of Ophthalmology in [place], [place] [address] [place] [phone] Maida Tim O.D. [address] [place] [phone] 02/16/2025 8:00 AM CDT Comprehensive Visit Department of Ophthalmology in [place], [place] [address] [place] [phone] Desi Rasmussen O.D. [address] [place] [phone] 02/23/2025 8:15 AM CDT Clinical Communication Virtual Review in [place], [place] 200 [place] [address] 02/24/2025 9:40 AM CDT Office Visit Department of Dermatology in [address] [address] Felipe Stewart M.D. [address] [place] [phone] 02/24/2025 10:00 AM CDT Office Visit Jeyson milan [facility] for Transplantation and Clinical Regeneration in [place], [place] [address] [place] [phone] Aide Welch P.A.Willie., M.S. [address] [place] [phone] 03/03/2025 9:00 AM CDT Telemedicine Department of Nutrition and Diabetes Education in [address] [address] Katelin Alcaraz, MARCUS, C.N.P., D.N.P. [address] [place] [phone] Mansi Ross M.S., RDN, LD [address] [place] [address] documented as of this encounter Visit Diagnoses Not on filedocumented in this encounter Additional Health Concerns Infection Onset Date Last Indicated Resolved Time Protective Environment 11/10/2023 11/10/2023 Assessment Noted Time PHQ-9 Depression Total Score: 19 025 12:23 PM SIGN MAINTENANCE documented as of this encounter Care Teams Enamel Sprayer Relationship Specialty Start Date End Date Kelly Mendez APRN, C.N.P., D.N.P. [address] [place] [phone] PCP - General Internal Medicine 12/05/23 [facility] [place] or Anabel [facility] lab Laboratory Medicine 02/26/23 documented as of this encounter
--- OUTSIDE RECORDS SUMMARY | 2025-02-03 00:05 | XMS_ITS | Encounter Summary ---
Author Organization [facility] Address [address] [place] [address] Care Team Providers Care Conformal Pad Former Name Role Phone Kelly Mendez APRN C.N.P., D.N.P. Primary Car e Provider Reason for Visit * Radiation Therapy (Routine) - Authorized Specialty Diagnoses / Procedures Referred By Juanito ayala Referred To Contact Diagnoses 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 Procedures Prior Auth Rad Tx CT IMRT COMPLEX CT GUIDANCE FOR LOC RAD TX CT IMRT RADIOTHERAPY PLAN IMRT Kiana Oliver M.D. [address] [place] [address] Phone: tel: fax: [facility] Radiation Oncology at [place] [address] [place] [phone] Referral ID Status Reason Start Date Expiration Date V isits Requested Visits Authorized [id number] Authorized 12/22/2024 03/10/2026 15 30 Encounter Details Date Type Department Care Team (Late st Contact Info) Description 01/08/2025 12:32 PM INFORMATION ANALYST Hospital Encounter Department of Radiation Oncology in [address] [phone] Kiana Oliver M.D. [address] [place] [phone] Social History Tobacco Use Types Packs/Day Years Used Date Smoking Tobacco: Former Cigarettes Q uit: 2008 Passive Smoke Exposure: Never Smokeless Tobacco: Never Alcohol Use Standard Drinks/Week Comments Not Currently 0 (1 standard drink = 0.6 oz pur e alcohol) last 06/23/22 [facility] Utilities Answer Date Recorded In the [...] week 02/04/2023 How often do you attend orthodox or moravian serv ices? Patient declined 02/04/2023 Do you belong to any clubs o r organizations such as orthodox groups, unions, fraternal or athletic groups, [...] [facility] of Occupat ional Health - [...] AM CDT Legal Sex Male 9:11 PM INFORMATION ANALYST Gender Identity na 09/07/2021 10:32 AM CDT Sexual Orientation Choose not to disclose 2020 10:32 AM CDT documented as of this encounter Plan of Treatment Upcoming Encounters Date Type Department Care Team (Latest Contact Info) Description 02/03/2025 1:00 PM CDT Appointment Department of Radiation Oncology in [address] [address] Kiana Oliver M.D. [address] [place] [phone] 02/04/2025 1:00 PM CDT Appointment Department of Radiation Oncology in [address] [address] Kiana Oliver M.D. [address] [place] [phone] 02/05/2025 12:45 PM CDT Appointment Department of Radiation Oncology in [address] [address] Kiana Oliver M.D. [address] [place] [phone] 02/05/2025 1:00 PM CDT Appointment Department of Radiation Oncology in [address] [address] Kiana Oliver M.D. [address] [place] [phone] 02/06/2025 1:00 PM CDT Appointment Department of Radiation Oncology in [address] [address] Kiana Oliver M.D. [address] [place] [phone] 02/09/2025 1:00 PM CDT Appointment Department of Radiation Oncology in [place], [place] [address] [place] [phone] Kiana Oliver M.D. [address] [place] [phone] 02/10/2025 1:00 PM CDT Appointment Department of Radiation Oncology in [place], [place] [address] [place] [phone] Kiana Oliver M.D. [address] [place] [phone] 02/11/2025 1:00 PM CDT Appointment Department of Radiation Oncology in [address] [address] Kiana Oliver M.D. [address] [place] [phone] 02/12/2025 1:00 PM CDT Appointment Department of Radiation Oncology in [address] [address] Kiana Oliver M.D. [address] [place] [phone] 02/12/2025 1:15 PM CDT Appointment Department of Radiation Oncology in [address] [address] Kiana Oliver M.D. [address] [place] [phone] 02/13/2025 1:00 PM CDT Appointment Department of Radiation Oncology in [address] [address] Kiana Oliver M.D. [address] [place] [phone] 02/16/2025 7:15 AM CDT Ancillary Procedure Department of Ophthalmology in [place], [place] [address] [place] [phone] Maida Tim O.D. [address] [place] [phone] 02/16/2025 8:00 AM CDT Comprehensive Visit Department of Ophthalmology in [place], [place] [address] [place] [phone] Desi Rasmussen O.D. [address] [place] [phone] 02/23/2025 8:15 AM CDT Clinical Communication Virtual Review in [place], [place] 200 [place] [phone] 02/24/2025 9:40 AM CDT Office Visit Department of Dermatology in [address] [address] Felipe Stewart M.D. [address] [place] [phone] 02/24/2025 10:00 AM CDT Office Visit Jeyson milan [facility] for Transplantation and Clinical Regeneration in [place], [place] [address] [place] [phone] Aide Welch P.A.Willie., M.S. [address] [place] [phone] 03/03/2025 9:00 AM CDT Telemedicine Department of Nutrition and Diabetes Education in [address] [address] Katelin Alcaraz, MARCUS, C.N.P., D.N.P. [address] [place] [phone] Mansi Ross M.S., RDN, LD [address] [place] [address] documented as of this encounter Visit Diagnoses Not on filedocumented in this encounter Additional Health Concerns Infection Onset Date Last Indicated Resolved Time Protective Environment 11/10/2023 11/10/2023 Assessment Noted Time PHQ-9 Depression Total Score: 19 025 12:23 PM INFORMATION ANALYST documented as of this encounter Care Teams Conformal Pad Former Relationship Specialty Start Date End Date Kelly Mendez APRN, C.N.P., D.N.P. [address] [place] [phone] PCP - General Internal Medicine 12/05/23 [facility] [place] or Anabel [facility] lab Laboratory Medicine 02/26/23 documented as of this encounter
--- OUTSIDE RECORDS SUMMARY | 2025-02-03 00:05 | XMS_ITS | Encounter Summary ---
Author Organization [facility] Address [address] [place] [address] Care Team Providers Care Field Account Director Name Role Phone Kelly Mendez Chanel VELAZQUEZ C.N.P., D.N.P. Primary Car e Provider Encounter Details Date Type Department Care Team (Latest Contact Info) Description 01/08/2025 9:50 AM GRADES 1 THRU 5 TEACHER - 01/08/2025 12:31 PM [facility] Hospital Encounter Department of Laboratory Medicine in [place], [place] [address] [place] [address] Deann Zhu APRN, C.N.P., M.S. [address] [place] [address] Transplant Liver (HCC); Medication Therapy Staff Writer Not Anticoagulant; Immunodeficiency Due To Drugs (HCC); [...] 0.6 oz pur e alcohol) last 06/23/22 [facility] Utilities Answer Date Recorded In the past 12 months has [employer], gas, oil, or water import[employer] threatened to shut off services in your [...] How often do you attend congregation or hindu serv ices? Patient declined 02/04/2023 [...] Answer Date Recorded PHQ-2 Score 6 11/23/2024 [facility] - Occupational Stress [...] AM CDT Legal Sex Male 9:11 PM GRADES 1 THRU 5 TEACHER Gender Identity na 09/07/2021 10:32 AM [...] diabetes control. 1 each 12/12/2023 11:05 AM GRADES 1 THRU 5 TEACHER 12/11/2023 calcium citrate-vitamin D3 (Citracal + D3) 315 mg-5 mcg (200 Unit) per tablet Take 1 tablet by mouth 2 (two) times a day with meals. 200 tablet 3 10/20/2024 10/20/20 25 famotidine (Pepcid) 20 mg tablet Take 1 tablet (20 mg total) by mouth 2 (two) times a day as needed for heartburn. 60 tablet 1 11/14/2024 12:18 PM GRADES 1 THRU 5 TEACHER 11/14/2024 fluoride, sodium, (PreviDent) 1.1 % gel [...] daily. 90 tablet 3 10/29/2024 11:46 AM GRADES 1 THRU 5 TEACHER 06/05/2024 gabapentin (NEURONTIN) 300 mg capsule Take 2 capsules (600 mg total) by mouth at bedtime. 04/07/2024 HYDROcodone-acetami nophen ([place]) 7.5-325 mg per tabletIndications:C hronic Pain/Nonacute Pain [...] 911. 15 mL 2 11/14/2024 12:18 PM GRADES 1 THRU 5 TEACHER 11/14/2024 ondansetron ODT (Zofran-ODT) 4 mg disintegrating tablet Dissolve 1 tablet (4 mg total) in the mouth every 8 (eight) hours as needed for nausea or vomiting. 30 tablet 3 11/26/2024 3:29 PM GRADES 1 THRU 5 TEACHER 06/05/2024 pen needle, diabetic (BD Ultra-Fine Short Pen Needle) 31 gauge x 5/16 needle Use 3 times a day 300 each 1 11/14/2024 12:18 PM GRADES 1 THRU 5 TEACHER 11/14/2024 rOPINIRole (Requip) 0.25 mg tabletIndications:R estless Leg Syndrome Take 2 tablets (0.5 mg total) by mouth at bedtime as needed (RLS). 30 tablet 11/26/2024 3:29 PM GRADES 1 THRU 5 TEACHER 11/13/2024 rosuvastatin (Crestor) 5 mg tablet Take 1 tablet (5 mg total) by mouth daily. 90 tablet 3 12/29/2024 1:25 PM GRADES 1 THRU 5 TEACHER 06/05/2024 sennosides-docusate sodium (Stool Softener-Stimulant Laxat) 8.6-50 mg per tabletIndications:T ransplant Liver (HCC),Medication Therapy Correction Not Anticoagulant,Drug Induced Constipation Take 1 tablet by mouth 2 (two) times a day. 100 tablet 02/22/2024 5:09 PM CDT 02/22/2024 tacrolimus (Prograf) 1 mg capsuleIndications: Transplant Liver (HCC),Medication Therapy Correction Not Anticoagulant Take 2 capsules (2 mg total) by mouth 2 (two) times a day. 01/01 dose change 360 capsule 3 01/01/2025 01/01/20 26 blood-glucose sensor (FreeStyle Apryl 3 Sensor) deviceIndications:D iabetes Mellitus Type 2 Hyperglycemia (HCC) 1 each every 14 (fourteen) days. 6 each 3 11/26/2024 3:29 PM GRADES 1 THRU 5 TEACHER 09/04/2024 01/29/20 25 insulin glargine 100 unit/mL [...] Appointment Department of Radiation Oncology in [address] [phone] Kiana Oliver M.D. [address] [place] [phone] 02/04/2025 1:00 PM CDT Appointment Department of Radiation Oncology in [address] [phone] Kiana Oliver M.D. [address] [place] [phone] 02/05/2025 12:45 PM CDT Appointment Department of Radiation Oncology in [address] [address] Kiana Oliver M.D. [address] [place] [phone] 02/05/2025 1:00 PM CDT Appointment Department of Radiation Oncology in [place], [place] [address] [place] [phone] Kiana Oliver M.D. [address] [place] [phone] 02/06/2025 1:00 PM CDT Appointment Department of Radiation Oncology in [place], [place] [address] [place] [address] Kiana Oliver M.D. [address] [place] [phone] 02/09/2025 1:00 PM CDT Appointment Department of Radiation Oncology in [address] [address] Kiana Oliver M.D. [address] [place] [phone] 02/10/2025 1:00 PM CDT Appointment Department of Radiation Oncology in [place], [place] [address] [place] [phone] Kiana Oliver M.D. [address] [place] [phone] 02/11/2025 1:00 PM CDT Appointment Department of Radiation Oncology in [address] [address] Kiana Oliver M.D. [address] [place] [phone] 02/12/2025 1:00 PM CDT Appointment Department of Radiation Oncology in [address] [address] Kiana Oliver M.D. [address] [place] [phone] 02/12/2025 1:15 PM CDT Appointment Department of Radiation Oncology in [place], [place] [address] [place] [phone] Kiana Oliver M.D. [address] [place] [phone] 02/13/2025 1:00 PM CDT Appointment Department of Radiation Oncology in [place], [place] [address] [place] [phone] Kiana Oliver M.D. [address] [place] [phone] 02/16/2025 7:15 AM CDT Ancillary Procedure Department of Ophthalmology in [place], [place] [address] [place] [phone] Maida Tim O.D. [address] [place] [phone] 02/16/2025 8:00 AM CDT Comprehensive Visit Department of Ophthalmology in [place], [place] [address] [place] [phone] Desi Rasmussen O.D. [address] [place] [phone] 02/23/2025 8:15 AM CDT Clinical Communication Virtual Review in [place], [place] 200 [place] [address] 02/24/2025 9:40 AM CDT Office Visit Department of Dermatology in [address] [phone] Felipe Stewart M.D. [address] [place] [phone] 02/24/2025 10:00 AM CDT [facility] [place], [place] [address] [place] [phone] Aide Welch P.A.-C., M.S. [address] [place] [phone] 03/03/2025 9:00 AM CDT Telemedicine Department of Nutrition and Diabetes Education in [place], [place] [address] [place] [phone] Katelin Alcaraz, MARCUS, C.N.P., D.N.P. [address] [place] [phone] Mansi Ross M.S., RDN, LD [address] [place] [phone] documented as of this encounter Procedures Procedure Name Priority Date/Time Associated Diagnosis Comments TACROLIMUS LEVEL, B Routine 01/08/2025 9 :59 AM GRADES 1 THRU 5 TEACHER Transplant Liver (HCC) Medication Therapy Correction Not Anticoagulant 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 Remission (HCC) CBC WITH DIFFERENTIAL, B Routine 01/08/2025 9:59 AM GRADES 1 THRU 5 TEACHER Transplant Liver (HCC) Medication Therapy Staff Writer Not Anticoagulant 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 Remission (HCC) GLUCOSE, FASTING, S/P Routine 01/08/2025 9:59 AM GRADES 1 THRU 5 TEACHER Transplant Liver (HCC) Medication Therapy Staff Writer Not Anticoagulant 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 Remission (HCC) BILIRUBIN DIRECT, S/P Routine 01/08/2025 9:59 AM GRADES 1 THRU 5 TEACHER Transplant Liver (HCC) Medication Therapy Correction Not Anticoagulant 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 Remission (HCC) COMPREHENSIVE METABOLIC PANEL, S/P Routine 01/08/2025 9:59 AM GRADES 1 THRU 5 TEACHER Transplant Liver (HCC) Medication Therapy Correction Not Anticoagulant 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 Remission (HCC) documented in this encounter Results * Bilirubin, Direct (01/08/2025 9:59 AM GRADES 1 THRU 5 TEACHER) Pathologist [facility] Bilirubin, Direct, P 0.2 0.0 - 0.3 mg/dL 01/08/2025 1:37 PM GRADES 1 THRU 5 TEACHER OWAT Blood (Blood, Venous) 01/08/2025 9:59 AM GRADES 1 THRU 5 TEACHER 01/08/2025 12:46 PM GRADES 1 THRU 5 TEACHER us Deann Zhu APRN, C.N.P., M.S. LAB BLOOD ADD -ON Final Result Performing Organization Address City/State/[facility] Co de Phone Number [facility] [address] [place] [address], [facility] OWAT [facility] in [place] [address] [place] [address] * (ABNORMAL) CBC with Differential, Blood (01/08/2025 9:59 AM GRADES 1 THRU 5 TEACHER) Pathologist [facility] Hemoglobin 12.0(L) 13.2 - 16.6 g/dL 01/08/2025 10:21 AM GRADES 1 THRU 5 TEACHER FB60 Hematocrit 36.7(L) 38.3 - 48.6 % 01/08/2025 10:21 AM GRADES 1 THRU 5 TEACHER FB60 Erythrocytes 4.23(L) 4.35 - 5.65 x10(12)/L 01/08/2025 10:21 AM GRADES 1 THRU 5 TEACHER FB60 MCV 86.8 78.2 - 97.9 fL 01/08/2025 10:21 AM GRADES 1 THRU 5 TEACHER FB60 RBC Distrib Width 15.1(H) 11.8 - 14.5 % 01/08/2025 10:21 AM GRADES 1 THRU 5 TEACHER FB60 Platelet Count 166 135 - 317 x10(9)/L 01/08/2025 10:21 AM GRADES 1 THRU 5 TEACHER FB60 Leukocytes 4.7 3.4 - 9.6 x10(9)/L 01/08/2025 10:21 AM GRADES 1 THRU 5 TEACHER FB60 Neutrophils 2.73 1.56 - 6.45 x10(9)/L 01/08/2025 10:21 AM GRADES 1 THRU 5 TEACHER FB60 Lymphocytes 1.20 0.95 - 3.07 x10(9)/L 01/08/2025 10:21 AM GRADES 1 THRU 5 TEACHER FB60 Monocytes 0.61 0.26 - 0.81 x10(9)/L 01/08/2025 10:21 AM GRADES 1 THRU 5 TEACHER FB60 Eosinophils 0.09 0.03 - 0.48 x10(9)/L 01/08/2025 10:21 AM GRADES 1 THRU 5 TEACHER FB60 Basophils <0.04 0.01 - 0.08 x10(9)/L 01/08/2025 10:21 AM GRADES 1 THRU 5 TEACHER FB60 Blood (Blood, Venous) 01/08/2025 9:59 AM GRADES 1 THRU 5 TEACHER 01/08/2025 9:59 AM GRADES 1 THRU 5 TEACHER Deann Zhu APRN, C.N.P., M.S. LAB BLOOD ADD -ON Final Result [facility] [address] [place] [address], [facility] FB60 [facility] in [place] [address] [place] [address] * (ABNORMAL) Tacrolimus, Trough (01/08/2025 9:59 AM GRADES 1 THRU 5 TEACHER) Tacrolimus, Trough 2.9(L) 5.0-15.0 (Trough) ng/mL 01/09/2025 10:53 AM GRADES 1 THRU 5 TEACHER [facility] Comment: ----ADDITIONAL INFORMATION---- Target steady-state trough concentrations vary depending on the type of transplant, concomitant immunosuppression, clinical/institutional protocols, and time post-transplant. Results should be interpreted in conjunction with this clinical information and any physical signs/symptoms of rejection/toxicity. Testing performed by Liquid Chromatography-Tandem Mass Spectrometry (LC-MS/MS). This test was developed and its performance characteristics determined by [facility] in a manner consistent with CLIA requirements. This test has not been cleared or approved by the U.S. Food and Drug Administration. Blood (Blood, Venous) 01/08/2025 9:59 AM GRADES 1 THRU 5 TEACHER 01/09/2025 7:16 AM GRADES 1 THRU 5 TEACHER us Deann Zhu APRN C.N.P., M.S. LAB BLOOD NON ADD-ON Final Result Performing Organization Address City/[facility]/ZIP Co de Phone Number [facility] [address] [place] [address] [facility] [address] [place] [address] [place] [address] * (ABNORMAL) Glucose, Fasting (01/08/2025 9:59 AM GRADES 1 THRU 5 TEACHER) Glucose, P 170(H) 70 - 100 mg/dL 01/08/2025 1:22 PM GRADES 1 THRU 5 TEACHER OWAT Last Intake 0 hr 01/08/2025 12:46 PM GRADES 1 THRU 5 TEACHER OWAT Blood (Blood, Venous) 01/08/2025 9:59 AM GRADES 1 THRU 5 TEACHER 01/08/2025 12:44 PM GRADES 1 THRU 5 TEACHER us Deann Zhu APRN, C.N.P., M.S. LAB BLOOD NON ADD-ON Final Result Performing Organization Address [facility] Co de Phone Number [facility] [address] [address], [place] OWAT [facility] in [place] [address] [place] [address] * (ABNORMAL) Comprehensive Metabolic Panel (01/08/2025 9:59 AM GRADES 1 THRU 5 TEACHER) Potassium, P 5.2 3.6 - 5.2 mmol/L 01/08/2025 1:37 PM GRADES 1 THRU 5 TEACHER OWAT Sodium, P 141 135 - 145 mmol/L 01/08/2025 1:37 PM GRADES 1 THRU 5 TEACHER OWAT Chloride, P 103 98 - 107 mmol/L 01/08/2025 1:37 PM GRADES 1 THRU 5 TEACHER OWAT Bicarbonate, P 27 22 - 29 mmol/L 01/08/2025 1:37 PM GRADES 1 THRU 5 TEACHER OWAT Anion Gap, P 11 7 - 15 01/08/2025 1:37 PM GRADES 1 THRU 5 TEACHER OWAT BUN (Blood Urea Nitrogen), P 22 8 - 24 mg/dL 01/08/2025 1:37 PM GRADES 1 THRU 5 TEACHER OWAT Creatinine 0.67(L) 0.74 - 1.35 mg/dL 01/08/2025 1:37 PM GRADES 1 THRU 5 TEACHER OWAT Estimated GFR (eGFR) >90 >=60 mL/min/BS A 01/08/2025 1:37 PM GRADES 1 THRU 5 TEACHER OWAT Comment: Estimated GFR calculated using the 2020 CKD_EPI creatinine equation. Calcium, Total, P 9.3 8.8 - 10.2 mg/dL 01/08/2025 1:37 PM GRADES 1 THRU 5 TEACHER OWAT Glucose, P CANCELED mg/dL 01/08/2025 12:46 PM GRADES 1 THRU 5 TEACHER OWAT Comment: Duplicate test request. Result canceled by the ancillary. Protein, Total, P 7.1 6.3 - 7.9 g/dL 01/08/2025 1:37 PM GRADES 1 THRU 5 TEACHER OWAT Albumin, P 4.3 3.5 - 5.0 g/dL 01/08/2025 1:37 PM GRADES 1 THRU 5 TEACHER OWAT Aspartate Aminotransferase (AST), P 23 8 - 48 U/L 01/08/2025 1:37 PM GRADES 1 THRU 5 TEACHER OWAT Alkaline Phosphatase, P 68 40 - 129 U/L 01/08/2025 1:37 PM GRADES 1 THRU 5 TEACHER OWAT Alanine Aminotransferase (ALT), P 17 7 - 55 U/L 01/08/2025 1:37 PM GRADES 1 THRU 5 TEACHER OWAT Bilirubin, Total, P 0.5 0.0 - 1.2 mg/dL 01/08/2025 1:37 PM GRADES 1 THRU 5 TEACHER OWAT Blood (Blood, Venous) 01/08/2025 9:59 AM GRADES 1 THRU 5 TEACHER 01/08/2025 12:46 PM GRADES 1 THRU 5 TEACHER us Deann Zhu APRN, C.N.P., M.S. LAB BLOOD ADD -ON Final Result [facility] [address] [place] [address], [place] OW[place] [facility] in [place] [address] [place] [address] documented in this encounter Visit Diagnoses Diagnosis Transplant Liver (HCC) Medication Therapy Staff Writer Not Anticoagulant 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 Remission (HCC) documented in this encounter Additional Health Concerns Infection Onset Date Last Indicated Resolved Time Protective Environment 11/10/2023 11/10/2023 Assessment Noted Time PHQ-9 Depression Total Score: 19 025 12:23 PM GRADES 1 THRU 5 TEACHER documented as of this encounter Care Teams Field Account Director Relationship Specialty Start Date End Date Kelly Mendez APRN, C.N.P., D.N.P. [address] [phone] PCP - General Internal Medicine 12/05/23 Rhea [facility] [place] or [place]abel [facility] lab Laboratory Medicine 02/26/23 documented as of this encounter
--- OUTSIDE RECORDS SUMMARY | 2025-02-03 00:05 | XMS_ITS | Encounter Summary ---
Author Organization [facility] Address [address] [place] [address] Care Team Providers Care Digital Associate Media Director Name Role Phone Kelly Mendez APRN [...] RADIOTHERAPY PLAN IMRT Kiana Oliver M.D. [address] [place] [address] Phone: tel: fax: [facility] Radiation Oncology at [place] [address] [place] [phone] Referral ID Status Reason Start Date Expiration Date V isits Requested Visits Authorized [id number] Authorized 12/22/2024 03/10/2026 15 30 Encounter Details Date Type Department Care Team (Late st Contact Info) Description 01/12/2025 12:12 PM ROSIN [facility]REL FILLER Hospital Encounter Department of Radiation Oncology in [address] [phone] Kiana Oliver M.D. [address] [place] [phone] Social History Tobacco Use Types Packs/Day Years [...] often do you attend latter day or religion serv ices? Patient declined 02/04/2023 [...] AM CDT Legal Sex Male 9:11 PM ROSIN BARREL FILLER Gender Identity na 09/07/2021 10:32 AM CDT Sexual Orientation Choose not to disclose 2020 10:32 AM CDT documented as of this encounter Plan of Treatment Upcoming Encounters Date Type Department Care Team (Latest Contact Info) Description 02/03/2025 1:00 PM CDT Appointment Department of Radiation Oncology in [address] [phone] Kiana Oliver M.D. [address] [place] [phone] 02/04/2025 1:00 PM CDT Appointment Department of Radiation Oncology in [address] [address] Kiana Oliver M.D. [address] [place] [phone] 02/05/2025 12:45 PM CDT Appointment Department of Radiation Oncology in [address] [phone] Kiana Oliver M.D. [address] [place] [phone] 02/05/2025 1:00 PM CDT Appointment Department of Radiation Oncology in [address] [phone] Kiana Oliver M.D. [address] [place] [phone] 02/06/2025 1:00 PM CDT Appointment Department of Radiation Oncology in [address] [phone] Kiana Oliver M.D. [address] [place] [phone] 02/09/2025 1:00 PM CDT Appointment Department of Radiation Oncology in [place], [place] [address] [place] [phone] Kiana Oliver M.D. [address] [place] [phone] 02/10/2025 1:00 PM CDT Appointment Department of Radiation Oncology in [place], [place] [address] [place] [phone] Kiana Oliver M.D. [address] [place] [phone] 02/11/2025 1:00 PM CDT Appointment Department of Radiation Oncology in [address] [phone] Kiana Oliver M.D. [address] [place] [phone] 02/12/2025 1:00 PM CDT Appointment Department of Radiation Oncology in [address] [address] Kiana Oliver M.D. [address] [place] [phone] 02/12/2025 1:15 PM CDT Appointment Department of Radiation Oncology in [address] [address] Kiana Oliver M.D. [address] [place] [phone] 02/13/2025 1:00 PM CDT Appointment Department of Radiation Oncology in [address] [address] Kiana Oliver M.D. [address] [place] [phone] 02/16/2025 7:15 AM CDT Ancillary Procedure Department of Ophthalmology in [place], [place] [address] [place] [phone] Maida Tim O.D. [address] [place] [phone] 02/16/2025 8:00 AM CDT Comprehensive Visit Department of Ophthalmology in [place], [place] [address] [place] [phone] Desi Rasmussen O.D. [address] [place] [phone] 02/23/2025 8:15 AM CDT Clinical Communication Virtual Review in [place], [place] 200 [place] [address] 02/24/2025 9:40 AM CDT Office Visit Department of Dermatology in [address] [phone] Felipe Stewart M.D. [address] [place] [phone] 02/24/2025 10:00 AM CDT Office Visit Jeyson milan [facility] in [place], [place] [address] [place] [phone] Aide Welch P.A.Willie., M.S. [address] [place] [phone] 03/03/2025 9:00 AM CDT Telemedicine Department of Nutrition and Diabetes Education in [address] [phone] Katelin Alcaraz, MARCUS, C.N.P., D.N.P. [address] [place] [phone] Mansi Ross M.S., RDN, LD [address] [place] [address] documented as of this encounter Visit Diagnoses Not on filedocumented in this encounter Additional Health Concerns Infection Onset Date Last Indicated Resolved Time Protective Environment 11/10/2023 11/10/2023 Assessment Noted Time PHQ-9 Depression Total Score: 19 025 12:23 PM ROSIN BARREL FILLER documented as of this encounter Care Teams Digital Associate Media Director Relationship Specialty Start Date End Date Kelly Mendez APRN, C.N.P., D.N.P. [address] [place] [phone] PCP - General Internal Medicine 12/05/23 [facility] [place] or [place]abel [facility] lab Laboratory Medicine 02/26/23 documented as of this encounter
--- OUTSIDE RECORDS SUMMARY | 2025-02-03 00:06 | XMS_ITS | Encounter Summary ---
Author Organization [facility] Address [address] [place] [address] Care Team Providers Care Maintenance Controller Name Role Phone Tennille Goddard APRN SENIOR TAX ANALYST Unavailable [phone] Beatris Ty [facility] Unavailable [phone] Dov [place] [facility] Unavailable Unavailable Tennille Goddard APRN SENIOR TAX ANALYST Primary Care Provider + Dov [place] [facility] Unavailable Unavailable Dov [place] [facility] Unavailable Unavailable Encounter Details Date Type Department Care Team (Late st Contact Info) Description 05/24/2020 [facility] Medical Advice [address] [address] Dov Alston [facility] [id number] [place] [address] Social History Tobacco Use Types Packs/Day Years [...] on file Legal Sex Male 3:09 AM INFANTRY OFFICER Gender Identity Not on file Sexual [...] Total Score: 0 01/07/20 19 6:53 PM INFANTRY OFFICER documented as of this encounter Care Teams Maintenance Controller Relationship Specialty Start Date End Date Tennille Goddard APRN SENIOR TAX ANALYST [address] [facility] [address] PCP - General Nurse Practitioner - Family 08/18/19 Tennille Goddard APRN SENIOR TAX ANALYST [address] [place] [address] Assigned PCP 12/15/18 01/07/22 Beatris Ty [facility] [address] [place] [address] Pharmacist Pharmacist 04/08/19 01/12/21 [facility] [address] [facility] [place] [address] Pharmacist Pharmacist 06/16/19 [facility] [address] [place] [address] Assigned MTM Pharmacist 04/15/22 08/04/22 [facility] [address] [place] [address] Assigned MTM Pharmacist 08/16/22 10/27/22 documented as of this encounter
--- OUTSIDE RECORDS SUMMARY | 2025-02-03 00:06 | XMS_ITS | Encounter Summary ---
Author Organization [facility] Address [address] [place] [address] Care Team Providers Care Head Machinist Name Role Phone Kelly Mendez APRN [...] RADIOTHERAPY PLAN IMRT Kiana Oliver M.D. 200 [place] [address] Phone: tel: fax: [facility] Radiation Oncology at [place] [address] [place] [phone] Referral ID Status Reason Start Date Expiration Date V isits Requested Visits Authorized [id number] Authorized 12/22/2024 03/10/2026 15 30 Encounter Details Date Type Department Care Team (Late st Contact Info) Description 01/09/2025 12:37 PM DISH NETWORK INSTALLER Hospital Encounter Department of Radiation Oncology in [place], [place] [address] [place] [phone] Kiana Oliver M.D. [address] [place] [phone] Social History Tobacco Use Types Packs/Day Years Used Date Smoking Tobacco: Former Cigarettes Q uit: 2008 Passive Smoke Exposure: Never Smokeless Tobacco: Never Alcohol Use Standard Drinks/Week Comments Not Currently 0 (1 standard drink = 0.6 oz pur e alcohol) last 06/23/22 [facility] Utilities Answer Date Recorded In the [...] week 02/04/2023 How often do you attend religion or restorationist serv ices? Patient declined 02/04/2023 Do you belong to any clubs o r organizations such as religion groups, unions, fraternal or athletic groups, or [...] AM CDT Legal Sex Male 9:11 PM DISH NETWORK INSTALLER Gender Identity na 09/07/2021 10:32 AM CDT Sexual Orientation Choose not to disclose 2020 10:32 AM CDT documented as of this encounter Plan of Treatment Upcoming Encounters Date Type Department Care Team (Latest Contact Info) Description 02/03/2025 1:00 PM CDT Appointment Department of Radiation Oncology in [address] [address] Kiana Oliver M.D. [address] [place] [phone] 02/04/2025 1:00 PM CDT Appointment Department of Radiation Oncology in [address] [phone] Kiana Oliver M.D. [address] [place] [phone] 02/05/2025 12:45 PM CDT Appointment Department of Radiation Oncology in [address] [address] Kiana Oliver M.D. [address] [place] [phone] 02/05/2025 1:00 PM CDT Appointment Department of Radiation Oncology in [address] [address] Kiana Oliver M.D. [address] [place] [phone] 02/06/2025 1:00 PM CDT Appointment Department of Radiation Oncology in [address] [address] Kiana Oliver M.D. [address] [place] [phone] 02/09/2025 1:00 PM CDT Appointment Department of Radiation Oncology in [place], [place] [address] [place] [phone] Kiana Oliver M.D. [address] [place] [phone] 02/10/2025 1:00 PM CDT Appointment Department of Radiation Oncology in [place], [place] [address] [place] [phone] Kiana Oliver M.D. [address] [place] [phone] 02/11/2025 1:00 PM CDT Appointment Department of Radiation Oncology in [address] [address] Kiana Oliver M.D. [address] [place] [phone] 02/12/2025 1:00 PM CDT Appointment Department of Radiation Oncology in [address] [address] Kiana Oliver M.D. [address] [place] [phone] 02/12/2025 1:15 PM CDT Appointment Department of Radiation Oncology in [address] [address] Kiana Oliver M.D. [address] [place] [phone] 02/13/2025 1:00 PM CDT Appointment Department of Radiation Oncology in [address] [address] Kiana Oliver M.D. [address] [place] [phone] 02/16/2025 7:15 AM CDT Ancillary Procedure Department of Ophthalmology in [place], [place] [address] [place] [phone] Maida Tim O.D. [address] [place] [phone] 02/16/2025 8:00 AM CDT Comprehensive Visit Department of Ophthalmology in [place], [place] [address] [place] [phone] Desi Rasmussen O.D. [address] [place] [phone] 02/23/2025 8:15 AM CDT Clinical Communication Virtual Review in [place], [place] 200 [place] [address] 02/24/2025 9:40 AM CDT Office Visit Department of Dermatology in [address] [address] Felipe Stewart M.D. [address] [place] [phone] 02/24/2025 10:00 AM CDT Office Visit Jeyson milan [facility] in [place], [place] [address] [place] [phone] Aide Welch P.A.Willie., M.S. [address] [place] [phone] 03/03/2025 9:00 AM CDT Telemedicine Department of Nutrition and Diabetes Education in [address] [phone] Katelin Alcaraz, MARCUS, C.N.P., D.N.P. [address] [place] [phone] Mansi Ross M.S., RDN, LD [address] [place] [address] documented as of this encounter Visit Diagnoses Not on filedocumented in this encounter Additional Health Concerns Infection Onset Date Last Indicated Resolved Time Protective Environment 11/10/2023 11/10/2023 Assessment Noted Time PHQ-9 Depression Total Score: 19 025 12:23 PM DISH NETWORK INSTALLER documented as of this encounter Care Teams Head Machinist Relationship Specialty Start Date End Date Kelly Mendez APRN, C.N.P., D.N.P. [address] [place] [phone] PCP - General Internal Medicine 12/05/23 [facility] [place] or Anabel [facility] lab Laboratory Medicine 02/26/23 documented as of this encounter
--- OUTSIDE RECORDS SUMMARY | 2025-02-03 00:06 | XMS_ITS | Encounter Summary ---
Author Organization [facility] Address [address] [place] [address] Care Team Providers Care Planning Division Superintendent Name Role Phone Kelly Mendez APRN C.N.P., D.N.P. Primary Car e Provider Reason for Visit * Radiation Therapy (Routine) - Authorized Specialty Diagnoses / Procedures Referred By Juanito ayala Referred To Contact Diagnoses 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 Procedures Prior Auth Rad Tx IA IMRT COMPLEX IA GUIDANCE FOR LOC RAD TX IA IMRT RADIOTHERAPY PLAN IMRT Kiana Oliver M.D. [address] [place] [phone] Phone: tel: fax: [facility] Radiation Oncology at [place] [address] [place] [phone] Referral ID Status Reason Start Date Expiration Date V isits Requested Visits Authorized [id number] Authorized 12/22/2024 03/10/2026 15 30 Encounter Details Date Type Department Care Team (Late st Contact Info) Description 02/02/2025 11:43 AM CDT Hospital Encounter Department of Radiation Oncology in [place], [place] [address] [place] [phone] Kiana Oliver M.D. 200 [place] [phone] Social History Tobacco Use Types Packs/Day Years [...] week 02/04/2023 How often do you attend adventist or episcopalian serv ices? Patient declined 02/04/2023 Do you belong to any clubs o r organizations such as adventist groups, unions, fraternal or athletic groups, or [...] Date Recorded PHQ-2 Score 6 11/23/2024 [facility] - Occupational [...] AM CDT Legal Sex Male 9:11 PM HIGH LEAD YARDER Gender Identity na 09/07/2021 10:32 AM CDT Sexual Orientation Choose not to disclose 2020 10:32 AM CDT documented as of this encounter Plan of Treatment Upcoming Encounters Date Type Department Care Team (Latest Contact Info) Description 02/03/2025 1:00 PM CDT Appointment Department of Radiation Oncology in [address] [phone] Kiana Oliver M.D. [address] [place] [phone] 02/04/2025 1:00 PM CDT Appointment Department of Radiation Oncology in [address] [address] Kiana Oliver M.D. [address] [place] [phone] 02/05/2025 12:45 PM CDT Appointment Department of Radiation Oncology in [address] [address] Kiana Oliver M.D. [address] [place] [phone] 02/05/2025 1:00 PM CDT Appointment Department of Radiation Oncology in [address] [address] Kiana Oliver M.D. [address] [place] [phone] 02/06/2025 1:00 PM CDT Appointment Department of Radiation Oncology in [address] [address] Kiana Oliver M.D. [address] [place] [phone] 02/09/2025 1:00 PM CDT Appointment Department of Radiation Oncology in [place], [place] [address] [place] [phone] Kiana Oliver M.D. [address] [place] [address] 02/10/2025 1:00 PM CDT Appointment Department of Radiation Oncology in [place], [place] [address] [place] [phone] Kiana Oliver M.D. [address] [place] [address] 02/11/2025 1:00 PM CDT Appointment Department of Radiation Oncology in [address] [address] Kiana Oliver M.D. [address] [place] [address] 02/12/2025 1:00 PM CDT Appointment Department of Radiation Oncology in [address] [address] Kiana Oliver M.D. 200 [place] [address] 02/12/2025 1:15 PM CDT Appointment Department of Radiation Oncology in [address] [address] Kiana Oliver M.D. 200 [place] [address] 02/13/2025 1:00 PM CDT Appointment Department of Radiation Oncology in [address] [address] Kiana Oliver M.D. [address] [place] [phone] 02/16/2025 7:15 AM CDT Ancillary Procedure Department of Ophthalmology in [place], [place] [address] [place] [phone] Maida Tim O.D. [address] [place] [phone] 02/16/2025 8:00 AM CDT Comprehensive Visit Department of Ophthalmology in [place], [place] [address] [place] [phone] Desi Rasmussen O.D. [address] [place] [phone] 02/23/2025 8:15 AM CDT Clinical Communication Virtual Review in [place], [place] 200 [place] [address] 02/24/2025 9:40 AM CDT Office Visit Department of Dermatology in [address] [address] Felipe Stewart M.D. [address] [place] [phone] 02/24/2025 10:00 AM CDT Office Visit Jeyson milan [facility] in [place], [place] [address] [place] [phone] Aide Welch P.A.-C., M.S. [address] [place] [phone] 03/03/2025 9:00 AM CDT Telemedicine Department of Nutrition and Diabetes Education in [address] [address] Katelin Alcaraz, MARCUS, C.N.P., D.N.P. [address] [place] [phone] Mansi Ross M.S., RDN, LD [address] [place] [address] documented as of this encounter Visit Diagnoses Not on filedocumented in this encounter Additional Health Concerns Infection Onset Date Last Indicated Resolved Time Protective Environment 11/10/2023 11/10/2023 Assessment Noted Time PHQ-9 Depression Total Score: 19 025 12:23 PM HIGH LEAD YARDER documented as of this encounter Care Teams Planning Division Superintendent Relationship Specialty Start Date End Date Kelly Mendez APRN, C.N.P., D.N.P. [address] [place] [phone] PCP - General Internal Medicine 12/05/23 [facility] [place] or Anabel [facility] lab Laboratory Medicine 02/26/23 documented as of this encounter
--- OUTSIDE RECORDS SUMMARY | 2025-02-03 00:06 | XMS_ITS | Encounter Summary ---
Author Organization [facility] Address [address] [place] [address] Care Team Providers Care Academy Education Director Name Role Phone MendezKelly Chanel VELAZQUEZ C.N.P., D.N.P. Primary Car e Provider Encounter Details Date Type Department Care Team (Latest Contact Info) Description 01/30/2025 10:24 AM CDT - 01/30/2025 11:59 PM CDT Hospital Encounter Department of Laboratory Medicine in [place], [place] [address] [place] [address] Deann Zhu APRN, C.N.P., M.S. [address] [place] [address] Transplant Liver (HCC); Medication Therapy [facility] Not Anticoagulant; Immunodeficiency Due To Drugs (HCC); [...] pur e alcohol) last 06/23/22 [facility] Utilities Answer Date Recorded In the past 12 months has [employer], gas, oil, or water [employer] threatened to shut off services in your [...] week 02/04/2023 How often do you attend moravian or scientologist serv ices? Patient declined 02/04/2023 Do you belong to any clubs o r organizations such as moravian groups, unions, fraternal or athletic groups, or [...] Answer Date Recorded PHQ-2 Score 6 11/23/2024 [facility] - Occupational [...] AM CDT Legal Sex Male 9:11 PM OXYGEN PLANT OPERATOR Gender Identity na 09/07/2021 10:32 AM [...] diabetes control. 1 each 12/12/2023 11:05 AM OXYGEN PLANT OPERATOR 12/11/2023 blood-glucose sensor (FreeStyle Apryl 3 Plus Sensor) deviceIndications:D iselates Mellitus Type 2 Hyperglycemia (HCC) 1 each every 15 (fifteen) days. 6 each 3 01/30/2025 4:04 PM CDT 01/28/2025 01/29/20 26 calcium citrate-vitamin D3 (Citracal + D3) 315 mg-5 mcg (200 Unit) per tablet Take 1 tablet by mouth 2 (two) times a day with meals. 200 tablet 3 10/20/2024 10/20/20 25 -lakgdesta ose (Artificial Tears) ophthalmic solution 1 drop 3 (three) times a day as needed for dry eyes. famotidine (Pepcid) 20 mg tablet Take 1 tablet (20 mg total) by mouth 2 (two) times a day as needed for heartburn. 60 tablet 1 11/14/2024 12:18 PM OXYGEN PLANT OPERATOR 11/14/2024 fluoride, sodium, (PreviDent) 1.1 % [...] daily. 90 tablet 3 10/29/2024 11:46 AM OXYGEN PLANT OPERATOR 06/05/2024 gabapentin (NEURONTIN) 300 mg capsule Take 2 capsules (600 mg total) by mouth at bedtime. 04/07/2024 HYDROcodone-acetami nophen ([place]) 7.5-325 mg per tabletIndications:C hronic Pain/Nonacute Pain [...] 911. 15 mL 2 11/14/2024 12:18 PM OXYGEN PLANT OPERATOR 11/14/2024 ondansetron ODT (Zofran-ODT) 4 mg disintegrating tablet Dissolve 1 tablet (4 mg total) in the mouth every 8 (eight) hours as needed for nausea or vomiting. 30 tablet 3 11/26/2024 3:29 PM OXYGEN PLANT OPERATOR 06/05/2024 pen needle, diabetic (BD Ultra-Fine Short Pen Needle) 31 gauge x 5/16 needle Use 3 times a day 300 each 1 11/14/2024 12:18 PM OXYGEN PLANT OPERATOR 11/14/2024 rOPINIRole (Requip) 0.25 mg tabletIndications:R estless Leg Syndrome Take 2 tablets (0.5 mg total) by mouth at bedtime as needed (RLS). 30 tablet 11/26/2024 3:29 PM OXYGEN PLANT OPERATOR 11/13/2024 rosuvastatin (Crestor) 5 mg tablet Take 1 tablet (5 mg total) by mouth daily. 90 tablet 3 12/29/2024 1:25 PM OXYGEN PLANT OPERATOR 06/05/2024 sennosides-docusate sodium (Stool Softener-Stimulant Laxat) 8.6-50 mg per tabletIndications:T ransplant Liver (HCC),Medication Therapy [facility] Not Anticoagulant,Drug Induced Constipation Take 1 tablet by mouth 2 (two) times a day. 100 tablet 02/22/2024 5:09 PM CDT 02/22/2024 tacrolimus (Prograf) 1 mg capsuleIndications: Transplant Liver (HCC),Medication Therapy Metal Building Assembler Not Anticoagulant Take 2 capsules (2 mg total) by mouth 2 (two) times a day. 01/01 dose change 360 capsule 3 01/01/2025 01/01/20 26 documented as of this encounter Plan of Treatment Upcoming Encounters Date Type Department Care Team (Latest Contact Info) Description 02/03/2025 1:00 PM CDT Appointment Department of Radiation Oncology in [address] [address] Kiana Oliver M.D. [address] [place] [phone] 02/04/2025 1:00 PM CDT Appointment Department of Radiation Oncology in [address] [address] Kiana Oliver M.D. 200 [place] [address] 02/05/2025 12:45 PM CDT Appointment Department of Radiation Oncology in [address] [address] Kiana Oliver M.D. 200 [place] [address] 02/05/2025 1:00 PM CDT Appointment Department of Radiation Oncology in [place], [place] [address] [place] [phone] Kiana Oliver M.D. [address] [place] [phone] 02/06/2025 1:00 PM CDT Appointment Department of Radiation Oncology in [address] [address] Kiana Oliver M.D. [address] [place] [phone] 02/09/2025 1:00 PM CDT Appointment Department of Radiation Oncology in [address] [address] Kiana Oliver M.D. [address] [place] [phone] 02/10/2025 1:00 PM CDT Appointment Department of Radiation Oncology in [address] [address] Kiana Oliver M.D. [address] [place] [phone] 02/11/2025 1:00 PM CDT Appointment Department of Radiation Oncology in [place], [place] [address] [place] [phone] Kiana Oliver M.D. [address] [place] [phone] 02/12/2025 1:00 PM CDT Appointment Department of Radiation Oncology in [address] [address] Kiana Oliver M.D. [address] [place] [phone] 02/12/2025 1:15 PM CDT Appointment Department of Radiation Oncology in [place], [place] [address] [place] [phone] Kiana Oliver M.D. [address] [place] [phone] 02/13/2025 1:00 PM CDT Appointment Department of Radiation Oncology in [place], [place] [address] [place] [address] Kiana Oliver M.D. [address] [place] [phone] 02/16/2025 7:15 AM CDT Ancillary Procedure Department of Ophthalmology in [place], [place] [address] [place] [phone] Maida Tim O.D. [address] [place] [phone] 02/16/2025 8:00 AM CDT Comprehensive Visit Department of Ophthalmology in [place], [place] [address] [place] [phone] Desi Rasmussen O.D. [address] [place] [phone] 02/23/2025 8:15 AM CDT Clinical Communication Virtual Review in [place], [place] 200 [place] [address] 02/24/2025 9:40 AM CDT Office Visit Department of Dermatology in [place], [place] [address] [place] [phone] Felipe Stewart M.D. [address] [place] [phone] 02/24/2025 10:00 AM CDT [facility] [place], [place] [address] [place] [phone] Aide Welch P.A.-C., M.S. [address] [place] [phone] 03/03/2025 9:00 AM CDT Telemedicine Department of Nutrition and Diabetes Education in [place], [place] [address] [place] [phone] Katelin Alcaraz, EMERGENCY SERVICE WORKER, C.N.P., D.N.P. [address] [place] [phone] Mansi Ross M.S., RDN, LD [address] [place] [phone] Pending Results Name Type Priority Associated Diagnoses Date /Time Testosterone, Total and Free Lab Routine Transplant Liver (HCC) Medication Therapy Metal Building As[employer]er Not Anticoagulant 01/30/2025 10:33 AM CDT Scheduled Orders Name Type Priority Associated Diagnoses Orde r Schedule Testosterone, Total and Free Lab Routine Transplant Liver (HCC) Medication Therapy [facility] Not Anticoagulant Once for 1 Occurrences starting 01/30/2025 until 01/30/2025 documented as of this encounter Procedures Procedure Name Priority Date/Time Associated Diagnosis Comments TACROLIMUS LEVEL, B Routine 01/30/2025 1 0:33 AM CDT Transplant Liver (HCC) Medication Therapy [facility] Not Anticoagulant 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 Remission (HCC) CBC WITH DIFFERENTIAL, B Routine 01/30/2025 10:33 AM CDT Transplant Liver (HCC) Medication Therapy [employer] Building [employer] Not Anticoagulant 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 Remission (HCC) GLUCOSE, FASTING, S/P Routine 01/30/2025 10:33 AM CDT Transplant Liver (HCC) Medication Therapy [employer] Not Anticoagulant 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 Remission (HCC) BILIRUBIN DIRECT, S/P Routine 01/30/2025 10:33 AM CDT Transplant Liver (HCC) Medication Therapy [employer] Building [employer] Not Anticoagulant 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 Remission (HCC) COMPREHENSIVE METABOLIC PANEL, S/P Routine 01/30/2025 10:33 AM CDT Transplant Liver (HCC) Medication Therapy Metal Building As[employer] Not Anticoagulant 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 Remission (HCC) documented in this encounter Results * Bilirubin, Direct (01/30/2025 10:33 AM CDT) Bilirubin, Direct, P 0.2 0.0 - 0.3 mg/dL 01/30/2025 1:[address] [facility] Blood (Blood, Venous) 01/30/2025 10:33 AM CDT 01/30/2025 12:40 PM CDT us Deann Zhu APRN, C.N.P., M.S. LAB BLOOD ADD -ON Final Result [facility] [address] [place] [id number], [facility]AT [facility] [place] [address] [place] [address] * (ABNORMAL) CBC with Differential, Blood (01/30/2025 [...] LAB BLOOD ADD -ON Final Result [facility] [address] [place] [address], [facility] [address] [place] [address] [place] [address] * (ABNORMAL) Tacrolimus, Trough (01/30/2025 10:33 AM CDT) Tacrolimus, Trough 2.4(L) 5.0-15.0 (Trough) ng/mL 01/31/2025 10:45 AM CDT [facility] Comment: ----ADDITIONAL INFORMATION---- Target steady-state trough concentrations vary depending on the type of transplant, concomitant immunosuppression, clinical/institutional protocols, and time post-transplant. Results should be interpreted in conjunction with this clinical information and any physical signs/symptoms of rejection/toxicity. Testing performed by Liquid Chromatography-Tandem Mass Spectrometry (LC-MS/MS). This test was developed and its performance characteristics determined by [facility] in a manner consistent with CLIA requirements. This test has not been cleared or approved by the U.S. Food and Drug Administration. Blood (Blood, Venous) 01/30/2025 10:33 AM CDT 01/31/2025 7:16 AM CDT Ximena Baltazar APRN.N.P., M.S. LAB BLOOD NON ADD-ON Final Result Performing Organization Address City/[facility]/ZIP Co de Phone Number [facility] [address] [place] [address] [facility] [address] [place] [address] [place] [address] * (ABNORMAL) Glucose, Fasting (01/30/2025 10:33 AM CDT) Glucose, P 149(H) 70 - 100 mg/dL 01/30/2025 1:32 PM CDT OW[facility] Last Intake 1 hr 01/30/2025 12:40 PM CDT [facility] Blood (Blood, Venous) 01/30/2025 10:33 AM CDT 01/30/2025 12:40 PM CDT us Deann Zhu APRN, C.N.P., M.S. LAB BLOOD NON ADD-ON Final Result Performing Organization Address City/[facility]/ZIP Co de Phone Number [facility] [address] [place] [address], [place] OW[facility] [place] [address] [place] [address] * (ABNORMAL) Comprehensive Metabolic Panel (01/30/2025 10:33 [...] LAB BLOOD ADD -ON Final Result [facility] [address] [place] [address], [facility] [place] [address] [place] [address] documented in this encounter Visit Diagnoses Diagnosis Transplant Liver (HCC) Medication Therapy [facility] Not Anticoagulant 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 Remission (HCC) documented in this encounter Additional Health Concerns Infection Onset Date Last Indicated Resolved Time Protective Environment 11/10/2023 11/10/2023 Assessment Noted Time PHQ-9 Depression Total Score: 19 025 12:23 PM OXYGEN PLANT OPERATOR documented as of this encounter Care Teams Academy Education Director Relationship Specialty Start Date End Date Kelly Mendez APRN, C.N.P., D.N.P. [address] [place] [phone] PCP - General Internal Medicine 12/05/23 [place] [facility] [place] or Anabel [facility] lab Laboratory Medicine 02/26/23 documented as of this encounter
--- OUTSIDE RECORDS SUMMARY | 2025-02-03 00:06 | XMS_ITS | Encounter Summary ---
Author Organization [facility] Address [address] [place] [address]. [place] [address] Care Team Providers Care Program Manager Name Role Phone Tennille Goddard APRN GRAVURE PRESS OPERATOR Unavailable [phone] Beatris Ty [facility] Unavailable [phone] Dov Alston [facility] Unavailable Unavailable Tennille Goddard APRN GRAVURE PRESS OPERATOR Primary Care Provider + oDv Alston [facility] Unavailable Unavailable Dov Alston [facility] Unavailable Unavailable Encounter Details Date Type Department Care Team (Late st Contact Info) Description 05/04/2020 [facility] Medical Advice [address], [address] [place] [address] Tennille Goddard APRN GRAVURE PRESS OPERATOR [address] [place] [address] Social History Tobacco Use Types [...] on file Legal Sex Male 3:09 AM 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 Gender Identity Not on file Sexual [...] Total Score: 0 01/07/20 19 6:53 PM 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 LEADER documented as of this encounter Care Teams Program Manager Relationship Specialty Start Date End Date Tennille Goddard APRN GRAVURE PRESS OPERATOR [address] [address] [place] [address] PCP - General Nurse Practitioner - Family 08/18/19 Tennille Goddard APRN GRAVURE PRESS OPERATOR [address] [place] [address] Assigned PCP 12/15/18 01/07/22 Beatris Ty [facility] [address] [place] [address] Pharmacist Pharmacist 04/08/19 01/12/21 Dov Alston [facility] [address] [facility] [place] [address] Pharmacist Pharmacist 06/16/19 Dov Alston [facility] [address] [place] [address] Assigned MTM Pharmacist 04/15/22 08/04/22 Dov Alston [facility] [address] [place] [address] Assigned MTM Pharmacist 08/16/22 10/27/22 documented as of this encounter
--- OUTSIDE RECORDS SUMMARY | 2025-02-03 00:06 | XMS_ITS | Encounter Summary ---
Author Organization [facility] Address [address] [place] [address] Care Team Providers Care Assembler Convertible Top Name Role Phone AndreaKelly Chanel VELAZQUEZ C.N.P., D.N.P. Primary Car e Provider Reason for Visit * Reason Onset Date Comments Labs Only 01/09/2025 Encounter Details Date Type Department Care Team (Latest Contact Info) Description 01/09/2025 Clinical Communication Jeyson Brown [facility] Clinical Regeneration in [place], [place] [address] [place] [address] Christy Abad R.N., C.C.T.C. [address] [place] [address] Labs Only Social History Tobacco Use Types [...] has e electric, gas, oil, or water [email or web address] threatened to shut off services in your [...] week 02/04/2023 How often do you attend jain or scientology serv ices? 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 *All labs are now found in [facility] - Flowsheets. For further review of labs, please review thereor under Synopsis* LANE PILOT SUPERVISOR documented in this encounter Plan of Treatment Upcoming Encounters Date Type Department Care Team (Latest Contact Info) Description 02/03/2025 1:00 PM CDT Appointment Department of Radiation Oncology in [address] [address] Kiana Oliver M.D. [address] [place] [phone] 02/04/2025 1:00 PM CDT Appointment Department of Radiation Oncology in [address] [address] Kiana Oliver M.D. [address] [place] [phone] 02/05/2025 12:45 PM CDT Appointment Department of Radiation Oncology in [address] [address] Kiana Oliver M.D. [address] [place] [phone] 02/05/2025 1:00 PM CDT Appointment Department of Radiation Oncology in [address] [address] Kiana Oliver M.D. [address] [place] [phone] 02/06/2025 1:00 PM CDT Appointment Department of Radiation Oncology in [address] [address] Kiana Oliver M.D. [address] [place] [phone] 02/09/2025 1:00 PM CDT Appointment Department of Radiation Oncology in [address] [address] Kiana Oliver M.D. [address] [place] [phone] 02/10/2025 1:00 PM CDT Appointment Department of Radiation Oncology in [address] [address] Kiana Oliver M.D. [address] [place] [phone] 02/11/2025 1:00 PM CDT Appointment Department of Radiation Oncology in [address] [address] Kiana Oliver M.D. 200 [place] [address] 02/12/2025 1:00 PM CDT Appointment Department of Radiation Oncology in [address] [address] Kiana Oliver M.D. [address] [place] [phone] 02/12/2025 1:15 PM CDT Appointment Department of Radiation Oncology in [place], [place] [address] [place] [phone] Kiana Oliver M.D. 200 [place] [address] 02/13/2025 1:00 PM CDT Appointment Department of Radiation Oncology in [address] [address] Kiana Oliver M.D. 200 [place] [address] 02/16/2025 7:15 AM CDT Ancillary Procedure Department of Ophthalmology in [place], [place] [address] [place] [phone] Maida Tim O.D. [address] [place] [phone] 02/16/2025 8:00 AM CDT Comprehensive Visit Department of Ophthalmology in [place], [place] [address] [place] [phone] Desi Rasmussen O.D. [address] [place] [phone] 02/23/2025 8:15 AM CDT Clinical Communication Virtual Review in [place], [place] 200 [place] [address] 02/24/2025 9:40 AM CDT Office Visit Department of Dermatology in [place], [place] [address] [place] [phone] Felipe Stewart M.D. [address] [place] [phone] 02/24/2025 10:00 AM CDT Office Visit Jeyson Kvein [facility] and Clinical Regeneration in [place], [place] [address] [place] [phone] Aide Welch, P.Aaron.-C., M.S. [address] [place] [phone] 03/03/2025 9:00 AM CDT Telemedicine Department of Nutrition and Diabetes Education in [place], [place] [address] [place] [phone] Katelin Alcaraz APRN, C.N.P., D.N.P. 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 [address] [place] [address] PCP - General Internal Medicine 12/05/[address] [place] [facility] [place] or [facility] lab Laboratory Medicine 02/26/23 documented as of this encounter
--- OUTSIDE RECORDS SUMMARY | 2025-02-03 00:07 | XMS_ITS | Encounter Summary ---
Author Organization [facility] Address [address] [place] [address] Care Team Providers Care Electric Motor Winders Assembler Name Role Phone Kelly Mendez APRN C.N.P., D.N.P. Primary Car e Provider Reason for Visit * Radiation Therapy (Routine) - Authorized Specialty Diagnoses / Procedures Referred By Juanito ayala Referred To Contact Diagnoses 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 Procedures Prior Auth Rad Tx PA IMRT COMPLEX PA GUIDANCE FOR LOC RAD TX PA IMRT RADIOTHERAPY PLAN IMRT Kiana Oliver M.D. 200 [place] [address] Phone: tel: fax: [facility] [place] [address] [place] [phone] Referral ID Status Reason Start Date Expiration Date V isits Requested Visits Authorized [id number] Authorized 12/22/2024 03/10/2026 15 30 Encounter Details Date Type Department Care Team (Late st Contact Info) Description 01/28/2025 12:49 PM CDT Hospital Encounter Department of Radiation Oncology in [address] [phone] Kiana Oliver M.D. 200 [place] [phone] Social History Tobacco Use Types Packs/Day Years Used Date Smoking Tobacco: Former Cigarettes Q uit: 2008 Passive Smoke Exposure: Never Smokeless Tobacco: Never Alcohol Use Standard Drinks/Week Comments Not Currently 0 (1 standard drink = 0.6 oz pur e alcohol) last 06/23/22 [facility] Utilities Answer Date Recorded In the [...] week 02/04/2023 How often do you attend christianity or lutheran serv ices? 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 [address] [place] [phone] 02/04/2025 1:00 PM CDT Appointment Department of Radiation Oncology in [address] [address] Kiana Oliver M.D. [address] [place] [phone] 02/05/2025 12:45 PM CDT Appointment Department of Radiation Oncology in [address] [address] Kiana Oliver M.D. [address] [place] [phone] 02/05/2025 1:00 PM CDT Appointment Department of Radiation Oncology in [address] [address] Kiana Oliver M.D. [address] [place] [phone] 02/06/2025 1:00 PM CDT Appointment Department of Radiation Oncology in [address] [address] Kiana Oliver M.D. [address] [place] [phone] 02/09/2025 1:00 PM CDT Appointment Department of Radiation Oncology in [place], [place] [address] [place] [phone] Kiana Oliver M.D. [address] [place] [address] 02/10/2025 1:00 PM CDT Appointment Department of Radiation Oncology in [place], [place] [address] [place] [phone] Kiana Oliver M.D. [address] [place] [address] 02/11/2025 1:00 PM CDT Appointment Department of Radiation Oncology in [address] [address] Kiana Oliver M.D. [address] [place] [address] 02/12/2025 1:00 PM CDT Appointment Department of Radiation Oncology in [address] [address] Kiana Oliver M.D. 200 [place] [address] 02/12/2025 1:15 PM CDT Appointment Department of Radiation Oncology in [address] [address] Kiana Oliver M.D. 200 [place] [address] 02/13/2025 1:00 PM CDT Appointment Department of Radiation Oncology in [address] [address] Kiana Oliver M.D. [address] [place] [phone] 02/16/2025 7:15 AM CDT Ancillary Procedure Department of Ophthalmology in [place], [place] [address] [place] [phone] Maida Tim O.D. [address] [place] [phone] 02/16/2025 8:00 AM CDT Comprehensive Visit Department of Ophthalmology in [place], [place] [address] [place] [phone] Desi Rasmussen O.D. [address] [place] [phone] 02/23/2025 8:15 AM CDT Clinical Communication Virtual Review in [place], [place] 200 [place] [address] 02/24/2025 9:40 AM CDT Office Visit Department of Dermatology in [address] [address] Felipe Stewart M.D. [address] [place] [phone] 02/24/2025 10:00 AM CDT Office Visit Jeyson milan [facility] for Transplantation and Clinical Regeneration in [place], [place] [address] [place] [phone] Aide Welch P.A.-C., M.S. [address] [place] [phone] 03/03/2025 9:00 AM CDT Telemedicine Department of Nutrition and Diabetes Education in [address] [address] Katelin Alcaraz, MARCUS, C.N.P., D.N.P. [address] [place] [phone] Mansi Ross M.S., RDN, LD [address] [place] [address] documented as of this encounter Visit Diagnoses Not on filedocumented in this encounter Additional Health Concerns Infection Onset Date Last Indicated Resolved Time Protective Environment 11/10/2023 11/10/2023 Assessment Noted Time PHQ-9 Depression Total Score: 19 025 12:23 PM GRAPE PRUNER documented as of this encounter Care Teams Electric Motor Winders Assembler Relationship Specialty Start Date End Date Kelly Mendez APRN, C.N.P., D.N.P. [address] [place] [address] PCP - General Internal Medicine 12/05/23 [facility] [place] or [facility] lab Laboratory Medicine 02/26/23 documented as of this encounter
--- OUTSIDE RECORDS SUMMARY | 2025-02-03 00:07 | XMS_ITS | Encounter Summary ---
Author Organization [facility] Address [address] [place] [address] Care Team Providers Care Pockets And Pieces Necktie Operator Name Role Phone Kelly Mendez APRN C.N.P., D.N.P. Primary Car e Provider Reason for Referral * Outpatient (Routine) - Authorized Specialty Diagnoses / Procedures Referred By Juanito ayala Referred To Contact Ophthalmology Diagnoses Dry Eye Syndrome Left Dry Eye Syndrome Bilateral Dysfunction Meibomian Gland Right Dysfunction Meibomian Gland Left Maida Tim O.D. [address] [place] [address] Phone: tel: fax: [facility] Referral ID Status Reason Start Date Expiration Date V isits Requested Visits Authorized [id number] Authorized 01/30/2025 08/01/2026 1 1 Reason for Visit * Reason Comments Diabetic Eye Exam * Outpatient (Routine) - Closed Specialty Diagnoses / Procedures Referred By Juanito ayala Referred To Contact Ophthalmology Diagnoses Dry Eye Syndrome Left Kiana Oliver M.D. [address] [place] [address] Phone: tel: fax: [facility] Referral ID Status Reason Start Date Expiration Date Visits Re quested Visits Authorized [id number] Closed 01/15/2025 07/17/2026 1 1 Encounter Details Date Type Department Care Team (Latest Contact Info) Description 01/30/2025 3:20 PM CDT Comprehensive Visit Department of Ophthalmology in [place], [place] [address] [place] [phone] Kiana Oliver M.D. [address] [place] [phone] Maida Tim O.D. [address] [place] [phone] Dry Eye Syndrome Bilateral (Primary Dx); Dysfunction [...] 0.6 oz pur e alcohol) last 06/23/22 [facility] Utilities Answer Date Recorded In the past 12 months has [employer], gas, oil, or water [employer] threatened to shut off services in [...] often do you attend latter day or lutheran serv ices? 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 [address] [place] [phone] 02/04/2025 1:00 PM CDT Appointment Department of Radiation Oncology in [place], [place] [address] [place] [phone] Kiana Oliver M.D. [address] [place] [phone] 02/05/2025 12:45 PM CDT Appointment Department of Radiation Oncology in [address] [address] Kiana Oliver M.D. [address] [place] [phone] 02/05/2025 1:00 PM CDT Appointment Department of Radiation Oncology in [place], [place] [address] [place] [phone] Kiana Oliver M.D. [address] [place] [phone] 02/06/2025 1:00 PM CDT Appointment Department of Radiation Oncology in [place], [place] [address] [place] [phone] Kiana Oliver M.D. [address] [place] [phone] 02/09/2025 1:00 PM CDT Appointment Department of Radiation Oncology in [place], [place] [address] [place] [address] Kiana Oliver M.D. [address] [place] [phone] 02/10/2025 1:00 PM CDT Appointment Department of Radiation Oncology in [place], [place] [address] [place] [phone] Kiana Oliver M.D. [address] [place] [phone] 02/11/2025 1:00 PM CDT Appointment Department of Radiation Oncology in [place], [place] [address] [place] [phone] Kiana Oliver M.D. [address] [place] [address] 02/12/2025 1:00 PM CDT Appointment Department of Radiation Oncology in [address] [address] Kiana Oliver M.D. [address] [place] [address] 02/12/2025 1:15 PM CDT Appointment Department of Radiation Oncology in [place], [place] [address] [place] [address] Kiana Oliver M.D. [address] [place] [address] 02/13/2025 1:00 PM CDT Appointment Department of Radiation Oncology in [place], [place] [address] [place] [address] Kiana Oliver M.D. [address] [place] [phone] 02/16/2025 7:15 AM CDT Ancillary Procedure Department of Ophthalmology in [place], [place] [address] [place] [address] Maida Tim O.D. [address] [place] [phone] 02/16/2025 8:00 AM CDT Comprehensive Visit Department of Ophthalmology in [place], [place] [address] [place] [phone] Desi Rasmussen O.D. [address] [place] [phone] 02/23/2025 8:15 AM CDT Clinical Communication Virtual Review in [place], [place] 200 [place] [address] 02/24/2025 9:40 AM CDT Office Visit Department of Dermatology in [place], [place] [address] [place] [phone] Felipe Stewart M.D. [address] [place] [phone] 02/24/2025 10:00 AM CDT Office Visit Jeyson Brown [facility] for Transplantation and Clinical Regeneration in [place], [place] [address] [place] [phone] Aide Welch P.A.-Ximena., M.S. [address] [place] [phone] 03/03/2025 9:00 AM CDT Telemedicine Department of Nutrition and Diabetes Education in [place], [place] [address] [place] [phone] Katelin Alcaraz, EVIDENCE TECHNICIAN, C.N.P., D.N.P. [address] [place] [phone] Mansi Ross M.S., RDN, LD [address] [place] [phone] Scheduled Referrals Name Type Priority Associated Diagnoses [...] Depression Total Score: 19 025 12:23 PM GARAGE MANAGER documented as of this encounter Care Teams Pockets And Pieces Necktie Operator Relationship Specialty Start Date End Date Kelly Mendez APRN, C.N.P., D.N.P. [address] [place] [address] PCP - General Internal Medicine 12/05/23 [facility] [place] or [place] lab Laboratory Medicine 02/26/23 documented as of this encounter
--- OUTSIDE RECORDS SUMMARY | 2025-02-03 00:07 | XMS_ITS | Encounter Summary ---
Author Organization [facility] Address [address] [place] [address] Care Team Providers Care Fruit And Vegetable Packer Name Role Phone Kelly Mendez APRN C.N.P., D.N.P. Primary Car e Provider Reason for Visit * Radiation Therapy (Routine) - Authorized Specialty Diagnoses / Procedures Referred By Juanito ayala Referred To Contact Diagnoses 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 Procedures Prior Auth Rad Tx AR IMRT COMPLEX AR GUIDANCE FOR LOC RAD TX AR IMRT RADIOTHERAPY PLAN IMRT Kiana Oliver M.D. 200 [place] [address] Phone: tel: fax: [facility] [address] [place] [phone] Referral ID Status Reason Start Date Expiration Date V isits Requested Visits Authorized [id number] Authorized 12/22/2024 03/10/2026 15 30 Encounter Details Date Type Department Care Team (Late st Contact Info) Description 01/27/2025 12:36 PM CDT Hospital Encounter Department of Radiation Oncology in [place], [place] [address] [place] [phone] Kiana Oliver M.D. 200 [place] [phone] Social History Tobacco Use Types Packs/Day Years Used Date Smoking Tobacco: Former Cigarettes Q uit: 2008 Passive Smoke Exposure: Never Smokeless Tobacco: Never Alcohol Use Standard Drinks/Week Comments Not Currently 0 (1 standard drink = 0.6 oz pur e alcohol) last 06/23/22 [facility] Utilities Answer Date Recorded In the past [...] week 02/04/2023 How often do you attend cheondoism or moravian serv ices? 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 [address] [place] [phone] 02/04/2025 1:00 PM CDT Appointment Department of Radiation Oncology in [address] [address] Kiana Oliver M.D. [address] [place] [phone] 02/05/2025 12:45 PM CDT Appointment Department of Radiation Oncology in [address] [address] Kiana Oliver M.D. [address] [place] [phone] 02/05/2025 1:00 PM CDT Appointment Department of Radiation Oncology in [address] [address] Kiana Oliver M.D. [address] [place] [phone] 02/06/2025 1:00 PM CDT Appointment Department of Radiation Oncology in [address] [address] Kiana Oliver M.D. [address] [place] [phone] 02/09/2025 1:00 PM CDT Appointment Department of Radiation Oncology in [place], [place] [address] [place] [phone] Kiana Oliver M.D. [address] [place] [address] 02/10/2025 1:00 PM CDT Appointment Department of Radiation Oncology in [place], [place] [address] [place] [phone] Kiana Oliver M.D. [address] [place] [address] 02/11/2025 1:00 PM CDT Appointment Department of Radiation Oncology in [address] [address] Kiana Oliver M.D. [address] [place] [address] 02/12/2025 1:00 PM CDT Appointment Department of Radiation Oncology in [address] [address] Kiana Oliver M.D. 200 [place] [address] 02/12/2025 1:15 PM CDT Appointment Department of Radiation Oncology in [address] [address] Kiana Oliver M.D. [address] [place] [address] 02/13/2025 1:00 PM CDT Appointment Department of Radiation Oncology in [address] [address] Kiana Oliver M.D. [address] [place] [phone] 02/16/2025 7:15 AM CDT Ancillary Procedure Department of Ophthalmology in [place], [place] [address] [place] [phone] Maida Tim O.D. [address] [place] [phone] 02/16/2025 8:00 AM CDT Comprehensive Visit Department of Ophthalmology in [place], [place] [address] [place] [phone] Desi Rasmussen O.D. [address] [place] [phone] 02/23/2025 8:15 AM CDT Clinical Communication Virtual Review in [place], [place] 200 [place] [address] 02/24/2025 9:40 AM CDT Office Visit Department of Dermatology in [address] [phone] Felipe Stewart M.D. [address] [place] [phone] 02/24/2025 10:00 AM CDT Office Visit Jeyson milan [facility] for Transplantation and Clinical Regeneration in [place], [place] [address] [place] [phone] Aide Welch P.A.-C., M.S. [address] [place] [phone] 03/03/2025 9:00 AM CDT Telemedicine Department of Nutrition and Diabetes Education in [address] [phone] Katelin Alcaraz, MARCUS, C.N.P., D.N.P. [address] [place] [phone] Mansi Ross M.S., RDN, LD [address] [place] [address] documented as of this encounter Visit Diagnoses Not on filedocumented in this encounter Additional Health Concerns Infection Onset Date Last Indicated Resolved Time Protective Environment 11/10/2023 11/10/2023 Assessment Noted Time PHQ-9 Depression Total Score: 19 025 12:23 PM FORWARD AIR CONTROLLER/AIR OFFICER documented as of this encounter Care Teams Fruit And Vegetable Packer Relationship Specialty Start Date End Date Kelly Mendez APRN, C.N.P., D.N.P. [address] [place] [phone] PCP - General Internal Medicine 12/05/23 [facility] [place] or Anabel [facility] lab Laboratory Medicine 02/26/23 documented as of this encounter
--- OUTSIDE RECORDS SUMMARY | 2025-02-03 00:07 | XMS_ITS | Encounter Summary ---
Author Organization [facility] Address [address] [place] [address] Care Team Providers Care Rf Design Engineer Name Role Phone Kelly Mendez [...] RADIOTHERAPY PLAN IMRT Kiana Oliver M.D. [address] [place] [address] Phone: tel: fax: [facility] Radiation Oncology at [place] [address] [place] [phone] Referral ID Status Reason Start Date Expiration Date V isits Requested Visits Authorized [id number] Authorized 12/22/2024 03/10/2026 15 30 Encounter Details Date Type Department Care Team (Late st Contact Info) Description 01/29/2025 12:42 PM CDT Hospital Encounter Department of Radiation Oncology in [address] [phone] Kiana Oliver M.D. [address] [place] [phone] Social History Tobacco Use Types Packs/Day Years Used Date Smoking Tobacco: Former Cigarettes Q uit: 2008 Passive Smoke Exposure: Never Smokeless Tobacco: Never Alcohol Use Standard Drinks/Week Comments Not Currently 0 (1 standard drink = 0.6 oz pur e alcohol) last 06/23/22 [facility] Utilities Answer Date Recorded In the [...] How often do you attend faith or scientology serv ices? 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 [address] [place] [phone] 02/04/2025 1:00 PM CDT Appointment Department of Radiation Oncology in [address] [address] Kiana Oliver M.D. [address] [place] [phone] 02/05/2025 12:45 PM CDT Appointment Department of Radiation Oncology in [address] [address] Kiana Oliver M.D. [address] [place] [phone] 02/05/2025 1:00 PM CDT Appointment Department of Radiation Oncology in [address] [address] Kiana Oliver M.D. [address] [place] [phone] 02/06/2025 1:00 PM CDT Appointment Department of Radiation Oncology in [address] [address] Kiana Oliver M.D. [address] [place] [phone] 02/09/2025 1:00 PM CDT Appointment Department of Radiation Oncology in [place], [place] [address] [place] [phone] Kiana Oliver M.D. [address] [place] [address] 02/10/2025 1:00 PM CDT Appointment Department of Radiation Oncology in [place], [place] [address] [place] [phone] Kiana Oliver M.D. [address] [place] [address] 02/11/2025 1:00 PM CDT Appointment Department of Radiation Oncology in [address] [address] Kiana Oliver M.D. [address] [place] [address] 02/12/2025 1:00 PM CDT Appointment Department of Radiation Oncology in [address] [address] Kiana Oliver M.D. [address] [place] [address] 02/12/2025 1:15 PM CDT Appointment Department of Radiation Oncology in [address] [address] Kiana Oliver M.D. [address] [place] [address] 02/13/2025 1:00 PM CDT Appointment Department of Radiation Oncology in [address] [address] Kiana Oliver M.D. [address] [place] [phone] 02/16/2025 7:15 AM CDT Ancillary Procedure Department of Ophthalmology in [place], [place] [address] [place] [phone] Maida Tim O.D. [address] [place] [phone] 02/16/2025 8:00 AM CDT Comprehensive Visit Department of Ophthalmology in [place], [place] [address] [place] [phone] Desi Rasmussen O.D. [address] [place] [phone] 02/23/2025 8:15 AM CDT Clinical Communication Virtual Review in [place], [place] 200 [place] [address] 02/24/2025 9:40 AM CDT Office Visit Department of Dermatology in [address] [address] Felipe Stewart M.D. [address] [place] [phone] 02/24/2025 10:00 AM CDT Office Visit Jeyson milan [facility] for Transplantation and Clinical Regeneration in [place], [place] [address] [place] [phone] Aide Welch P.A.-C., M.S. [address] [place] [phone] 03/03/2025 9:00 AM CDT Telemedicine Department of Nutrition and Diabetes Education in [address] [address] Katelin Alcaraz, MARCUS, C.N.P., D.N.P. [address] [place] [phone] Mansi Ross M.S., RDN, LD [address] [place] [address] documented as of this encounter Visit Diagnoses Not on filedocumented in this encounter Additional Health Concerns Infection Onset Date Last Indicated Resolved Time Protective Environment 11/10/2023 11/10/2023 Assessment Noted Time PHQ-9 Depression Total Score: 19 025 12:23 PM MEDICAL STAFF COORDINATOR documented as of this encounter Care Teams Rf Design Engineer Relationship Specialty Start Date End Date Kelly Mendez APRN, C.N.P., D.N.P. [address] [place] [phone] PCP - General Internal Medicine 12/05/23 [facility] [place] or Anabel [facility] lab Laboratory Medicine 02/26/23 documented as of this encounter
--- OUTSIDE RECORDS SUMMARY | 2025-02-03 00:07 | XMS_ITS | Encounter Summary ---
Author Organization [facility] Address [address] [place] [address] Care Team Providers Care Precision Millwright Name Role Phone Kelly Mendez APRN C.N.P., D.N.P. 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 [address] [place] [address] Phone: tel: fax: [facility] Radiation Oncology at [place] [address] [place] [phone] Referral ID Status Reason Start Date Expiration Date V isits Requested Visits Authorized [id number] Authorized 12/22/2024 03/10/2026 15 30 Encounter Details Date Type Department Care Team (Late st Contact Info) Description 01/30/2025 8:45 AM CDT Hospital Encounter Department of Radiation Oncology in [address] [phone] Kiana Oliver M.D. [address] [place] [phone] Social History Tobacco Use Types Packs/Day Years Used Date Smoking Tobacco: Former Cigarettes Q uit: 2008 Passive Smoke Exposure: Never Smokeless Tobacco: Never Alcohol Use Standard Drinks/Week Comments Not Currently 0 (1 standard drink = 0.6 oz pur e alcohol) last 06/23/22 [facility] Utilities Answer Date Recorded In [...] How often do you attend mandaen or yarsanism serv ices? 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 [address] [place] [phone] 02/04/2025 1:00 PM CDT Appointment Department of Radiation Oncology in [address] [address] Kiana Oliver M.D. [address] [place] [phone] 02/05/2025 12:45 PM CDT Appointment Department of Radiation Oncology in [address] [address] Kiana Oliver M.D. [address] [place] [address] 02/05/2025 1:00 PM CDT Appointment Department of Radiation Oncology in [address] [address] Kiana Oliver M.D. [address] [place] [phone] 02/06/2025 1:00 PM CDT Appointment Department of Radiation Oncology in [address] [address] Kiana Oliver M.D. [address] [place] [address] 02/09/2025 1:00 PM CDT Appointment Department of Radiation Oncology in [place], [place] [address] [place] [phone] Kiana Oliver M.D. [address] [place] [address] 02/10/2025 1:00 PM CDT Appointment Department of Radiation Oncology in [place], [place] [address] [place] [phone] Kiana Oliver M.D. [address] [place] [address] 02/11/2025 1:00 PM CDT Appointment Department of Radiation Oncology in [address] [address] Kiana Oliver M.D. [address] [place] [address] 02/12/2025 1:00 PM CDT Appointment Department of Radiation Oncology in [address] [address] Kiana Oliver M.D. [address] [place] [address] 02/12/2025 1:15 PM CDT Appointment Department of Radiation Oncology in [address] [address] Kiana Oliver M.D. [address] [place] [address] 02/13/2025 1:00 PM CDT Appointment Department of Radiation Oncology in [address] [address] Kiana Oliver M.D. [address] [place] [phone] 02/16/2025 7:15 AM CDT Ancillary Procedure Department of Ophthalmology in [place], [place] [address] [place] [phone] Maida Tim O.D. [address] [place] [phone] 02/16/2025 8:00 AM CDT Comprehensive Visit Department of Ophthalmology in [place], [place] [address] [place] [phone] Desi Rasmussen O.D. [address] [place] [phone] 02/23/2025 8:15 AM CDT Clinical Communication Virtual Review in [place], [place] 200 [place] [address] 02/24/2025 9:40 AM CDT Office Visit Department of Dermatology in [address] [address] Felipe Stewart M.D. [address] [place] [phone] 02/24/2025 10:00 AM CDT Office Visit Jeyson milan [facility] for Transplantation and Clinical Regeneration in [place], [place] [address] [place] [phone] Aide Welch P.A.-C., M.S. [address] [place] [phone] 03/03/2025 9:00 AM CDT Telemedicine Department of Nutrition and Diabetes Education in [address] [address] Katelin Alcaraz, MARCUS, C.N.P., D.N.P. [address] [place] [phone] Mansi Ross M.S., RDN, LD [address] [place] [address] documented as of this encounter Visit Diagnoses Not on filedocumented in this encounter Additional Health Concerns Infection Onset Date Last Indicated Resolved Time Protective Environment 11/10/2023 11/10/2023 Assessment Noted Time PHQ-9 Depression Total Score: 19 025 12:23 PM PRODUCTION PATTERN MAKER documented as of this encounter Care Teams Precision Millwright Relationship Specialty Start Date End Date Kelly Mendez APRN, C.N.P., D.N.P. [address] [place] [address] PCP - General Internal Medicine 12/05/23 [facility] [place] or Anabel [facility] lab Laboratory Medicine 02/26/23 documented as of this encounter
--- OUTSIDE RECORDS SUMMARY | 2025-02-03 00:07 | XMS_ITS | Encounter Summary ---
Author Organization [facility] Address [address] [place] [address] Care Team Providers Care Maintenance And Custodian Supervisor Name Role Phone Kelly Mendez APRN C.N.P., D.N.P. 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 [address] [place] [address] Phone: tel: fax: [facility] Region Referral ID Status Reason Start Date Expiration Date V isits Requested Visits Authorized [id number] Authorized 12/08/2024 03/10/2026 10 10 Reason for Visit * Radiation Therapy (Routine) - Authorized Specialty Diagnoses / Procedures Referred By Juanito ayala Referred To Contact Diagnoses 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 Procedures Management Visit Kiana Oliver M.D. [address] [place] [address] Phone: tel: fax: [facility] Region Referral ID Status Reason Start Date Expiration Date V isits Requested Visits Authorized [id number] Authorized 12/08/2024 03/10/2026 10 10 Encounter Details Date Type Department Care Team (Latest Contact Info) Description 01/29/2025 12:42 PM CDT - 01/29/2025 2:31 PM CDT Hospital Encounter Department of Radiation Oncology in [place], [place] [address] [place] [phone] Kiana Oliver M.D. [address] [place] [address] 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 Social History Tobacco Use Types Packs/Day Years Used Date Smoking Tobacco: Former Cigarettes Q uit: 2008 Passive Smoke Exposure: Never Smokeless Tobacco: Never Alcohol Use Standard Drinks/Week Comments Not Currently 0 (1 standard drink = 0.6 oz pur e alcohol) last 06/23/22 [facility] Utilities Answer Date Recorded In the past 12 months has e [employer], gas, oil, or water [employer] threatened to shut off services in your [...] How often do you attend yazidi or congregational serv ices? Patient declined 02/04/2023 [...] Date Recorded PHQ-2 Score 6 11/23/2024 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 1 each 12/12/2023 11:05 AM PRESS OPERATOR HEAVY DUTY 12/11/2023 blood-glucose sensor (FreeStyle Apryl 3 Plus [...] heartburn. 60 tablet 1 11/14/2024 12:18 PM PRESS OPERATOR HEAVY DUTY 11/14/2024 fluoride, sodium, (PreviDent) 1.1 % gel [...] daily. 90 tablet 3 10/29/2024 11:46 AM PRESS OPERATOR HEAVY DUTY 06/05/2024 gabapentin (NEURONTIN) 300 mg capsule Take 2 capsules (600 mg total) by mouth at bedtime. 04/07/2024 HYDROcodone-acetami nophen ([place]) 7.5-325 mg per tabletIndications:C hronic Pain/Nonacute Pain [...] 911. 15 mL 2 11/14/2024 12:18 PM PRESS OPERATOR HEAVY DUTY 11/14/2024 ondansetron ODT (Zofran-ODT) 4 mg disintegrating tablet Dissolve 1 tablet (4 mg total) in the mouth every 8 (eight) hours as needed for nausea or vomiting. 30 tablet 3 11/26/2024 3:29 PM PRESS OPERATOR HEAVY DUTY 06/05/2024 pen needle, diabetic (BD Ultra-Fine Short Pen Needle) 31 gauge x 5/16 needle Use 3 times a day 300 each 1 11/14/2024 12:18 PM PRESS OPERATOR HEAVY DUTY 11/14/2024 rOPINIRole (Requip) 0.25 mg tabletIndications:R estless Leg Syndrome Take 2 tablets (0.5 mg total) by mouth at bedtime as needed (RLS). 30 tablet 11/26/2024 3:29 PM PRESS OPERATOR HEAVY DUTY 11/13/2024 rosuvastatin (Crestor) 5 mg tablet Take 1 tablet (5 mg total) by mouth daily. 90 tablet 3 12/29/2024 1:25 PM PRESS OPERATOR HEAVY DUTY 06/05/2024 sennosides-docusate sodium (Stool Softener-Stimulant Laxat) 8.6-50 mg per tabletIndications:T ransplant Liver (HCC),Medication Therapy Director [employer] Not Anticoagulant,Drug Induced Constipation Take 1 tablet by mouth 2 (two) times a day. 100 tablet 02/22/2024 5:09 PM CDT 02/22/2024 tacrolimus (Prograf) 1 mg capsuleIndications: Transplant Liver (HCC),Medication Therapy [facility] Not Anticoagulant Take 2 capsules (2 mg [...] (cGy) First Treatment Last Treatment Elapsed Days [id number] 200 3800 6000 01/05/2025 01/29/2025 24 Course [...] radiation but then also help with the buttermaker continuous churn effects of radiation on the lacrimal gland. Kiana Oliver M.D., 01/29/2025 documented in this encounter Plan of Treatment Upcoming Encounters Date Type Department Care Team (Latest Contact Info) Description 02/03/2025 1:00 PM CDT Appointment Department of Radiation Oncology in [address] [phone] Kiana Oliver M.D. [address] [place] [phone] 02/04/2025 1:00 PM CDT Appointment Department of Radiation Oncology in [address] [address] Kiana Oliver M.D. [address] [place] [phone] 02/05/2025 12:45 PM CDT Appointment Department of Radiation Oncology in [address] [address] Kiana Oliver M.D. [address] [place] [phone] 02/05/2025 1:00 PM CDT Appointment Department of Radiation Oncology in [place], [place] [address] [place] [address] Kiana Oliver M.D. [address] [place] [phone] 02/06/2025 1:00 PM CDT Appointment Department of Radiation Oncology in [place], [place] [address] [place] [phone] Kiana Oliver M.D. [address] [place] [phone] 02/09/2025 1:00 PM CDT Appointment Department of Radiation Oncology in [place], [place] [address] [place] [address] Kiana Oliver M.D. [address] [place] [phone] 02/10/2025 1:00 PM CDT Appointment Department of Radiation Oncology in [place], [place] [address] [place] [phone] Kiana Oliver M.D. [address] [place] [phone] 02/11/2025 1:00 PM CDT Appointment Department of Radiation Oncology in [place], [place] [address] [place] [phone] Kiana Oliver M.D. [address] [place] [phone] 02/12/2025 1:00 PM CDT Appointment Department of Radiation Oncology in [address] [address] Kiana Oliver M.D. [address] [place] [phone] 02/12/2025 1:15 PM CDT Appointment Department of Radiation Oncology in [address] [address] Kiana Oliver M.D. [address] [place] [phone] 02/13/2025 1:00 PM CDT Appointment Department of Radiation Oncology in [address] [address] Kiana Oliver M.D. [address] [place] [phone] 02/16/2025 7:15 AM CDT Ancillary Procedure Department of Ophthalmology in [place], [place] [address] [place] [phone] Maida Tim O.D. [address] [place] [phone] 02/16/2025 8:00 AM CDT Comprehensive Visit Department of Ophthalmology in [place], [place] [address] [place] [phone] Desi Rasmussen O.D. [address] [place] [phone] 02/23/2025 8:15 AM CDT Clinical Communication Virtual Review in [place], [place] [address] [place] [address] 02/24/2025 9:40 AM CDT Office Visit Department of Dermatology in [place], [place] [address] [place] [phone] Felipe Stewart M.D. [address] [place] [address] 02/24/2025 10:00 AM CDT Office Visit Jeyson Kevin [facility] for Transplantation and Clinical Regeneration in [place], [place] [address] [place] [address] Aide Welch P.A.-C., M.S. [address] [place] [phone] 03/03/2025 9:00 AM CDT Telemedicine Department of Nutrition and Diabetes Education in [place], [place] [address] [place] [address] Katelin Alcaraz APRN, C.N.P., D.N.P. [address] [place] [phone] Mansi Ross M.S., RDN, LD [address] [place] [phone] Scheduled Orders Name Type Priority Associated Diagnoses [...] Depression Total Score: 19 025 12:23 PM PRESS OPERATOR HEAVY DUTY documented as of this encounter Care Teams Maintenance And Custodian Supervisor Relationship Specialty Start Date End Date Kelly Mendez APRN, C.N.P., D.N.P. [address] [place] [phone] PCP - General Internal Medicine 12/05/23 [facility] Rhea Little [facility] lab Laboratory Medicine 02/26/23 documented as of this encounter
--- OUTSIDE RECORDS SUMMARY | 2025-02-03 00:07 | XMS_ITS | Encounter Summary ---
Author Organization [facility] Address [address] [place] [address] Care Team Providers Care Exhauster Name Role Phone AndreaJuddKellylilia Buchanan APRN C.N.P., D.N.P. Primary Car e Provider Reason for Visit * Reason Onset Date Comments Med Refill 01/28/2025 Encounter Details Date Type Department Care Team (Late st Contact Info) Description 01/28/2025 Refill Division of Endocrinology in [place], [place] [address] [place] [address] Bryson Lr M.D. [address] [place] [address] Med Refill Social History Tobacco Use Types Packs/Day Years Used Date Smoking Tobacco: Former Cigarettes Q uit: 2008 Passive Smoke Exposure: Never Smokeless Tobacco: Never Alcohol Use Standard Drinks/Week Comments Not Currently 0 (1 standard drink = 0.6 oz pur e alcohol) last 06/23/22 [facility] Utilities Answer Date Recorded In the past 12 months has e [employer] gas, oil, or water [employer] threatened to shut off services in your [...] How often do you attend christianity or pentecostal serv ices? 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 [address] [place] [address] 02/04/2025 1:00 PM CDT Appointment Department of Radiation Oncology in [place], [place] [address] [place] [phone] Kiana Oliver M.D. [address] [place] [phone] 02/05/2025 12:45 PM CDT Appointment Department of Radiation Oncology in [place], [place] [address] [place] [phone] Kiana Oliver M.D. [address] [place] [phone] 02/05/2025 1:00 PM CDT Appointment Department of Radiation Oncology in [address] [address] Kiana Oliver M.D. [address] [place] [phone] 02/06/2025 1:00 PM CDT Appointment Department of Radiation Oncology in [place], [place] [address] [place] [phone] Kiana Oliver M.D. [address] [place] [phone] 02/09/2025 1:00 PM CDT Appointment Department of Radiation Oncology in [place], [place] [address] [place] [address] Kiana Oliver M.D. [address] [place] [phone] 02/10/2025 1:00 PM CDT Appointment Department of Radiation Oncology in [address] [address] Kiana Oliver M.D. [address] [place] [phone] 02/11/2025 1:00 PM CDT Appointment Department of Radiation Oncology in [place], [place] [address] [place] [phone] Kiana Oliver M.D. [address] [place] [phone] 02/12/2025 1:00 PM CDT Appointment Department of Radiation Oncology in [place], [place] [address] [place] [phone] Kiana Oliver M.D. [address] [place] [phone] 02/12/2025 1:15 PM CDT Appointment Department of Radiation Oncology in [address] [address] Kiana Oliver M.D. [address] [place] [phone] 02/13/2025 1:00 PM CDT Appointment Department of Radiation Oncology in [place] [address] [place] [address] Kiana Oliver M.D. [address] [place] [phone] 02/16/2025 7:15 AM CDT Ancillary Procedure Department of Ophthalmology in [place], [place] [address] [place] [phone] Maida Tim O.D. [address] [place] [phone] 02/16/2025 8:00 AM CDT Comprehensive Visit Department of Ophthalmology in [place], [place] [address] [place] [phone] Desi Rasmussen O.D. [address] [place] [phone] 02/23/2025 8:15 AM CDT Clinical Communication Virtual Review in [place], [place] [address] [place] [address] 02/24/2025 9:40 AM CDT Office Visit Department of Dermatology in [place], [place] [address] [place] [phone] Felipe Stewart M.D. [address] [place] [phone] 02/24/2025 10:00 AM CDT Office Visit Jeyson Brown [facility] for Transplantation and Clinical Regeneration in [place], [place] [address] [place] [phone] Aide Welch P.A.-C., M.S. [address] [place] [phone] 03/03/2025 9:00 AM CDT Telemedicine Department of Nutrition and Diabetes Education in [place], [place] [address] [place] [phone] Katelin Alcaraz APRN, C.N.P., D.N.P. [address] [place] [phone] Mansi Ross M.S., RDN, LD [address] [place] [phone] documented as of this encounter Visit Diagnoses Diagnosis Diabetes Mellitus Type 2 Hyperglycemia (HCC) documented in this encounter Additional Health Concerns Infection Onset Date Last Indicated Resolved Time Protective Environment 11/10/2023 11/10/2023 Assessment Noted Time PHQ-9 Depression Total Score: 19 11/23/ 025 12:23 PM SENIOR HR MANAGER documented as of this encounter Care Teams Exhauster Relationship Specialty Start Date End Date Kelly Mendez, PHARMACY ASSOCIATE, C.N.P., D.N.P. [address] [place] [phone] PCP - General Internal Medicine 12/05/23 [place] [facility] [place] [facility] lab Laboratory Medicine 02/26/23 documented as of this encounter
== END 2025-02-03 00:04 | disposition home or self-care (01) ==
PROVIDERS: Emergency Provider Emergency Medicine; PCP Nurse Practitioner
DX: K94.29 Other complications of gastrostomy (principal)
CPT/HCPCS: 99282; 99283